=== PATIENT | male | born 1985 | race Caucasian/White ===

== ENCOUNTER → 2016-07-12 | Outpatient (CLI) | payer OTHER ==
[~2016-07-12] MED LIST: AMLO-114 PO; AMOX500C3 PO; BUME1TAB PO; CALC667C4 PO; CTP/1 PO; HPRIS5M SQ; HYDI IV.; HYDR-5688 PO; INSDGI SC; INSDGIPEN SC; LABE1TAB28 PO; NRV5 PO; NVLG SQ; NVLGI SC; OXYC-57 PO; PENI-82 PO; ROSU40TA18 PO; ROSU5TAB PO; SODI650T8 PO; SODI650T9 PO; ZTHM250 OR; [UNRECOGNIZED DRUG - OTHER]
[2016-07-12 17:40] LABS: BASO % 0.8 %; BASO ABS # 0.09 K/uL (0-0.2); COMPLETE YES; EOS % 1.8 %; HEMATOCRIT 29.8 % (42-52); IG% 0.5 %; LYMPH % 16.1 %; LYMPH ABS # 1.76 K/uL (1.2-3.4); MEAN CELL VOLUME 86.1 fL (80-100); MEAN CORPUSCULAR HEMOGLOBIN 29.8 pg (25-34); MEAN CORPUSCULAR HGB CONC 34.6 g/dl (32-36); MEAN PLATELET VOLUME 10.5 fL (7.4-10.4); MONO % 4.7 %; NEUT % 76.1 %; PLATELET COUNT 343 K/uL (130-400); RED BLOOD COUNT 3.46 M/uL (4.7-6.1); WHITE BLOOD COUNT 10.94 K/uL (4.8-10.8)
[2016-07-12 17:42] LABS: URINE APPEARANCE CLEAR (CLEAR); URINE BILIRUBIN NEG (NEG); URINE COLOR YELLOW; URINE EPITHELIAL CELL AUTO >30 /lpf (0-5); URINE NITRITE NEG (NEG); URINE SPECIFIC GRAVITY 1.017 (1.000-1.030); UROBILINOGEN NEG (NEG); ZZUR CULT IF INDIC CLEAN CATCH NO
[2016-07-12 17:54] LABS: MANUAL MICROSCOPIC REQUIRED? NO; REVIEW REQ? YES
[2016-07-12 17:56] LABS: BLOOD UREA NITROGEN 65 mg/dl (7-18); BUN/CREATININE RATIO 16.7 (10-20); CALCIUM 8.5 mg/dl (8.5-10.1); CARBON DIOXIDE 23 mmol/L (21-32); CHLORIDE 104 mmol/L (98-107); GLUCOSE 362 mg/dl (70-99); MAGNESIUM 1.8 mg/dl (1.8-2.4); POTASSIUM 5.3 mmol/L (3.5-5.1); SODIUM 137 mmol/L (136-145)
[2016-07-12 17:58] LABS: PHOSPHORUS 5.3 mg/dl (2.5-4.9)
[2016-07-12 18:02] LABS: URINE PROTIEN/CREAT RATIO 17.9 (0-0.2)
[2016-07-12 18:05] LABS: BETA-HYDROXYBUTYRATE 1.14 mg/dL (0.2-2.81); URINE PATH CASTS 5-10 GRANULAR CASTS /lpf (0)
== END | disposition home or self-care (01) ==
LOC: C.LAB1850 16:35
PROVIDERS: ATTEND Internal Medicine Nephrology
DX: N18.3 Chronic kidney disease, stage 3 (moderate) (principal)

== ENCOUNTER 2016-07-28 09:26 | Emergency (ER) | payer OTHER ==
[~2016-07-28] VITALS: Ht 182.9 cm; Wt 79.7 kg
[~2016-07-28 09:26] MED LIST changes: -AMLO-114 PO; -AMOX500C3 PO; -BUME1TAB PO; -CALC667C4 PO; -CTP/1 PO; -HPRIS5M SQ; -HYDI IV.; -INSDGIPEN SC; -LABE1TAB28 PO; -NVLG SQ; -OXYC-57 PO; -PENI-82 PO; -ROSU40TA18 PO; -SODI650T8 PO; -SODI650T9 PO; -ZTHM250 OR; -[UNRECOGNIZED DRUG - OTHER]
[2016-07-28 09:27] VITALS: BP 156/90; PULSE 85; TEMP 36.5; O2SAT 99; Ht 182.9 cm; Wt 79.7 kg
[2016-07-28] MEDS ORDERED: HYDR-5688 PO (10:23)
[2016-07-28] MEDS ORDERED: AMOX500C3 PO (10:23)
--- NOTE | 2016-07-28 10:24 | EMERGENCY ROOM VISIT NOTE ---
ED Visit Note First contact with patient: 09:36 Chief Complaint: Dental Pain History of Present Illness: This patient is a 31-year-old male who presents to the Emergency Department this morning for evaluation of their dental pain. Patient believes the pain is arising from LEFT inferior molar tooth which they report developed last evening. They describe the pain as constant and they now report radiation to the jaw and face. They have tried nothing for the pain to this point. They report increased pain with eating and drinking. Patient rates his current discomfort as a 7/10. The patient does not have a dentist appointment set up at this time. Patient currently denies any associated fevers , chills, visual disturbances, neck pain/stiffness, or trismus. They report no drainage from the tooth. Patient is a current smoker. Medications: Reviewed and discussed with the patient. Allergies: No known allergies. PMH: No pertinent past medical history. SHx: Patient is a 31-year-old male who lives locally. ROS: All pertinent positive and negative review of systems are appropriately documented in the History of Present Illness. Physical Exam: VITAL SIGNS Vital signs and nursing notes were reviewed. GENERAL 31-year-old male appearing his stated age who is in no acute distress. Communicates well with provider and answers questions appropriately. HEAD Normocephalic, Atraumatic. EYES PERRL with EOMI bilaterally. EARS No deformities of external structures noted on gross examination bilaterally. No pain elicited with palpation of the tragus bilaterally. External auditory canals without discharge or otorrhea. Tympanic membranes pearly negron without retraction or bulging. NOSE Midline and without cyanosis. No epistaxis or purulent drainage noted. Septum midline without deviation or septal hematoma noted. MOUTH/OROPHARYNX Without perioral cyanosis. Buccal mucosa pink and moist and without leukoplakia. Tongue midline with equal elevation of palate bilaterally. No tonsillar hypertrophy, erythema, or exudates noted. Poor dentition noted. The LEFT 1st molar tooth is carious to the base. Surrounding gums erythematous and edematous without discharge. Exquisite tenderness to palpation of affected tooth. No trismus. No fluctuance to palpation or active drainage appreciated. No sublingual edema. NECK Neck with FROM. Supple to palpation. No lymphadenopathy noted. No nuchal rigidity. ED Course: Patient was seen and evaluated by myself. It was discussed with the patient at great length that the Emergency Department is not an appropriate place for continued treatment of dental pain issues. Patient acknowledges understanding. Patient will be placed on a course of [place] and Amoxicillin. Patient was educated on worrisome symptoms for return visit to the Emergency Department. Patient was discharged to home afebrile and in good condition. Impression: Odontalgia Discharge Instructions: You have been treated in the Emergency Department for Dental Pain due to Cavities. You have been prescribed [place] to be used for pain control. This is a narcotic medication. You cannot drive or consume alcohol while on this medicine. This medicine should only be used for pain that cannot be controlled with over-the- counter pain medicines. You were prescribed Amoxicillin to be taken as prescribed. This is an antibiotic. All antibiotics have the potential to cause diarrhea. Stop this medication and contact a medical provider if you were to develop any significant adverse side effects including: wheezing, shortness of breath, passing out, vomiting, or a diffuse rash. Always take antibiotics as directed and COMPLETE the ENTIRE course regardless of the improvement of your symptoms. For pain control, you can use the following [id number] medicines (if >12 yo): - Regular strength (325mg/tab) Tylenol (acetaminophen) 2 tabs every 4-6 hours as needed. Do not exceed 12 tablets in a 24 hour period. Avoid taking more than 4 grams (4000 mg) of Tylenol per day. This includes any other sources of acetaminophen you may take on a regular basis. - Regular strength (200 mg/tab) Advil (ibuprofen) 1-2 tabs every 4-6 hours as needed. Do not exceed a dose of 3200 mg per day. Refrain from smoking cigarettes or using chewing tobacco until you have been evaluated by your dentist. Keeping beverages lukewarm and consuming soft foods can decrease your pain. Warm compresses over the affected area may offer some relief. You MUST seek evaluation of your dental pain by a dentist following your visit to the Emergency Department. The Emergency Department is not capable of treating dental issues long-term. You should call your dentist as soon as possible to make an appointment for evaluation of your dental pain. Return to the emergency department if you develop the following symptoms despite treatment course outlined above: fever, intractable pain, increased redness, swelling, or purulent discharge. Problem List Medical Problems: (1) Bilateral leg edema Status: Resolved (2) Chronic Kidney Disease, Stage 3 (Moderate) Status: Chronic (3) Dehydration Status: Resolved (4) Diabetes Status: Chronic (5) Elevated IOP Status: Resolved (6) Hyperglycemia Status: Resolved (7) Hyperkalemia Status: Resolved (8) Hyperlipidemia, Unspecified Status: Chronic (9) Hypertension Status: Chronic (10) Hypertensive emergency Status: Resolved (11) Hypertensive Retinopathy, Left Eye Status: Chronic (12) Proteinuria Status: Resolved (13) Renal insufficiency Status: Resolved (14) Renal insufficiency Status: Resolved (15) Visual disturbance Status: Resolved Current/Historical Medications Scheduled Amlodipine Besylate (Amlodipine Besylate), 10 MG PO QAM Amoxicillin (Amoxil), 500 MG PO TID Insulin Aspart (Novolog), UNITS SC WM Insulin Glargine (Lantus), 25 UNITS SC QPM Labetalol (Normodyne), 200 MG PO TID Rosuvastatin Calcium (Crestor), 5 MG PO DAILY Scheduled PRN Hydrocodone/Acetaminophen 5MG/325MG ([place] 5MG/325MG), 1-2 TABLETS PO Q4H PRN for Pain Hydrocodone/Acetaminophen 5MG/325MG ([place] 5MG/325MG), 1-2 TABLET PO Q4H PRN for Pain Allergies Coded Allergies: No Known Allergies (Unverified , NKA, 05/14/16) Vital Signs Date Time Temp Pulse Resp B/P Pulse Ox O2 Delivery O2 Flow Rate FiO2 07/28/16 09:27 36.5 85 18 156/90 99 Room Air Departure Information Impression Primary Impression: Odontalgia Additional Impression: Dental caries Dispostion Home / Self-Care Condition GOOD Prescriptions Hydrocodone/Acetaminophen 5MG/325MG ([place] 5MG/325MG) Tab 1-2 TABLET PO Q4H Y for Pain, #16 TAB For Initial Treatment Prov: Ephraim Singleton PA-C 07/28/16 Amoxicillin (AMOXIL) 500 Mg Cap 500 MG PO TID for 10 Days, #30 CAP Prov: Ephraim Singleton PA-C 07/28/16 Referrals Carmelita Alejandro M.D. (PCP) Patient Instructions ED [facility] Additional Instructions You have been treated in the Emergency Department for Dental Pain due to Cavities. You have been prescribed [place] to be used for pain control. This is a narcotic medication. You cannot drive or consume alcohol while on this medicine. This medicine should only be used for pain that cannot be controlled with over-the- counter pain medicines. You were prescribed Amoxicillin to be taken as prescribed. This is an antibiotic. All antibiotics have the potential to cause diarrhea. Stop this medication and contact a medical provider if you were to develop any significant adverse side effects including: wheezing, shortness of breath, passing out, vomiting, or a diffuse rash. Always take antibiotics as directed and COMPLETE the ENTIRE course regardless of the improvement of your symptoms. For pain control, you can use the following [id number] medicines (if >12 yo): - Regular strength (325mg/tab) Tylenol (acetaminophen) 2 tabs every 4-6 hours as needed. Do not exceed 12 tablets in a 24 hour period. Avoid taking more than 4 grams (4000 mg) of Tylenol per day. This includes any other sources of acetaminophen you may take on a regular basis. - Regular strength (200 mg/tab) Advil (ibuprofen) 1-2 tabs every 4-6 hours as needed. Do not exceed a dose of 3200 mg per day. Refrain from smoking cigarettes or using chewing tobacco until you have been evaluated by your dentist. Keeping beverages lukewarm and consuming soft foods can decrease your pain. Warm compresses over the affected area may offer some relief. You MUST seek evaluation of your dental pain by a dentist following your visit to the Emergency Department. The Emergency Department is not capable of treating dental issues long-term. You should call your dentist as soon as possible to make an appointment for evaluation of your dental pain. Return to the emergency department if you develop the following symptoms despite treatment course outlined above: fever, intractable pain, increased redness, swelling, or purulent discharge. Problem Qualifiers
[2016-08-22] MEDS ORDERED: SODI650T9 PO (14:06)
[2016-08-22] MEDS ORDERED: OXYC-57 PO (14:06)
[2016-08-22] MEDS ORDERED: HPRIS5M SQ (14:06)
[2016-08-22] MEDS ORDERED: INSDGIPEN SC (14:06)
[2016-08-22] MEDS ORDERED: HYDI IV. (14:06)
[2016-08-22] MEDS ORDERED: [UNRECOGNIZED DRUG - OTHER] (14:06)
[2016-08-22] MEDS ORDERED: ZTHM250 OR (14:06)
[2016-12-02] MEDS ORDERED: ROSU40TA18 PO (08:39)
[2016-12-02] MEDS ORDERED: CTP/1 PO (08:39)
[2016-12-02] MEDS ORDERED: INSDGIPEN SC (09:27)
[2016-12-02] MEDS ORDERED: LABE1TAB28 PO (09:49)
== END 2016-07-28 10:33 | disposition home or self-care (01) ==
LOC: C.EDB 09:27 → C.EDA 10:33
DX: K08.89 Other specified disorders of teeth and supporting structures (principal); K02.9 Dental caries, unspecified; N18.3 Chronic kidney disease, stage 3 (moderate); E11.9 Type 2 diabetes mellitus without complications; E78.5 Hyperlipidemia, unspecified; I10 Essential (primary) hypertension; Z79.4 Long term (current) use of insulin

== ENCOUNTER → 2016-07-28 | Outpatient (CLI) | payer OTHER ==
[2016-07-28 11:45] LABS: BASO % 0.6 %; BASO ABS # 0.08 K/uL (0-0.2); COMPLETE YES; EOS % 2.2 %; HEMATOCRIT 29.4 % (42-52); IG% 0.2 %; LYMPH % 14.3 %; LYMPH ABS # 1.84 K/uL (1.2-3.4); MEAN CELL VOLUME 86.7 fL (80-100); MEAN CORPUSCULAR HEMOGLOBIN 30.1 pg (25-34); MEAN CORPUSCULAR HGB CONC 34.7 g/dl (32-36); MEAN PLATELET VOLUME 9.5 fL (7.4-10.4); MONO % 5.7 %; PLATELET COUNT 408 K/uL (130-400); RED BLOOD COUNT 3.39 M/uL (4.7-6.1); WHITE BLOOD COUNT 12.91 K/uL (4.8-10.8)
[2016-07-28 12:00] LABS: URINE APPEARANCE CLOUDY (CLEAR); URINE BILIRUBIN NEG (NEG); URINE COLOR YELLOW; URINE EPITHELIAL CELL AUTO >30 /lpf (0-5); URINE NITRITE NEG (NEG); URINE PH 5.5 (4.5-7.5); URINE SPECIFIC GRAVITY 1.021 (1.000-1.030); UROBILINOGEN NEG (NEG); ZZUR CULT IF INDIC CLEAN CATCH YES
[2016-07-28 12:01] LABS: INR 0.9 (0.9-1.1); PARTIAL THROMBOPLASTIN RATIO 1.1; PROTHROMBIN TIME (PATIENT) 10.1 SECONDS (9.0-12.0)
[2016-07-28 12:03] LABS: MANUAL MICROSCOPIC REQUIRED? NO; REVIEW REQ? YES
[2016-07-28 12:15] LABS: BLOOD UREA NITROGEN 57 mg/dl (7-18); BUN/CREATININE RATIO 14.2 (10-20); CALCIUM 8.3 mg/dl (8.5-10.1); CARBON DIOXIDE 22 mmol/L (21-32); CHLORIDE 106 mmol/L (98-107); GLUCOSE 149 mg/dl (70-99); MAGNESIUM 1.8 mg/dl (1.8-2.4); PHOSPHORUS 6.6 mg/dl (2.5-4.9); POTASSIUM 5.3 mmol/L (3.5-5.1); SODIUM 138 mmol/L (136-145)
[2016-07-28 12:20] LABS: HEPATITIS B AB NEG
[2016-07-28 12:35] LABS: URINE PROTIEN/CREAT RATIO 21.8 (0-0.2); URINE TOTAL PROTEIN 1808.5 mg/dl (0-11.9)
[2016-08-01 21:36] LABS: MYELOPEROXIDASE AB <1.0 AI (<1.0)
== END | disposition home or self-care (01) ==
LOC: C.LAB 10:50
PROVIDERS: ATTEND Internal Medicine Nephrology
DX: N18.3 Chronic kidney disease, stage 3 (moderate) (principal)

== ENCOUNTER → 2016-08-20 | Outpatient (CLI) | payer OTHER ==
[~2016-08-20] MED LIST changes: +AMLO-114 PO; +BUME1TAB PO; +CALC667C4 PO; +CTP/1 PO; +HPRIS5M SQ; +HYDI IV.; +INSDGIPEN SC; +LABE1TAB28 PO; +NVLG SQ; +OXYC-57 PO; +PENI-82 PO; +ROSU40TA18 PO; +SODI650T8 PO; +SODI650T9 PO; +ZTHM250 OR; +[UNRECOGNIZED DRUG - OTHER]
[2016-08-20 17:18] LABS: BASO % 1.2 %; BASO ABS # 0.12 K/uL (0-0.2); COMPLETE YES; EOS % 3.1 %; HEMATOCRIT 30.4 % (42-52); IG% 0.1 %; LYMPH % 20.5 %; LYMPH ABS # 2.02 K/uL (1.2-3.4); MEAN CELL VOLUME 87.6 fL (80-100); MEAN CORPUSCULAR HEMOGLOBIN 28.8 pg (25-34); MEAN CORPUSCULAR HGB CONC 32.9 g/dl (32-36); MEAN PLATELET VOLUME 9.4 fL (7.4-10.4); MONO % 6.3 %; NEUT % 68.8 %; PLATELET COUNT 464 K/uL (130-400); RED BLOOD COUNT 3.47 M/uL (4.7-6.1); WHITE BLOOD COUNT 9.86 K/uL (4.8-10.8)
[2016-08-20 17:28] LABS: PARTIAL THROMBOPLASTIN RATIO 1.1; PROTHROMBIN TIME (PATIENT) 10.7 SECONDS (9.0-12.0)
[2016-08-20 17:47] LABS: BLOOD UREA NITROGEN 50 mg/dl (7-18); BUN/CREATININE RATIO 12.3 (10-20); CALCIUM 8.2 mg/dl (8.5-10.1); CARBON DIOXIDE 19 mmol/L (21-32); CHLORIDE 114 mmol/L (98-107); GLUCOSE 94 mg/dl (70-99); MAGNESIUM 1.8 mg/dl (1.8-2.4); PHOSPHORUS 5.7 mg/dl (2.5-4.9); POTASSIUM 4.8 mmol/L (3.5-5.1); SODIUM 146 mmol/L (136-145)
== END | disposition home or self-care (01) ==
LOC: C.LAB1850 16:18
PROVIDERS: ATTEND Internal Medicine Nephrology
DX: R31.29 Other microscopic hematuria (principal)

== ENCOUNTER 2016-08-21 08:05 | Inpatient (IN) | payer OTHER ==
[~2016-08-21] VITALS: Ht 182.9 cm; Wt 85.6 kg
[~2016-08-21 08:05] MED LIST changes: -AMLO-114 PO; -BUME1TAB PO; -CALC667C4 PO; -CTP/1 PO; -HPRIS5M SQ; -HYDI IV.; -INSDGIPEN SC; -LABE1TAB28 PO; -NVLG SQ; -OXYC-57 PO; -PENI-82 PO; -ROSU40TA18 PO; -SODI650T8 PO; -SODI650T9 PO; -ZTHM250 OR; -[UNRECOGNIZED DRUG - OTHER]
--- NOTE | 2016-08-21 08:25 | EMERGENCY ROOM VISIT NOTE ---
History Report prepared by Paulo: Alyssa Soliz Under the Supervision of: Dr. Kt Goff M.D. First contact with patient: 08:13 Chief Complaint: FLANK PAIN Stated Complaint: PAIN IN SIDE History of Present Illness The patient is a 31 year old male who presents to the Emergency Room with complaints of persistent, worsening, right flank pain that began one week ago. He currently rates his discomfort as a 4/10 in severity. The patient states that he has a history of diabetes and kidney failure. 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 The patient states that his pain is worsened with deep breathing and coughing. He states that he has always noticed pain to the right side of his back, but notes that it has started to radiate. The patient notes increased swelling to his legs. He denies any recent heavy lifting or straining or urinary burning. The patient denies being on any blood thinners. He denies any allergies. The patient denies any history of kidney stones or pain similar to this in the past. Source of History: patient Onset: one week ago Position: other (right flank) Symptom Intensity: 4/10 Timing: worsening, other (persistent) Associated Symptoms: + back pain, No urinary symptoms Review of Systems All systems have been listed, reviewed, and are negative other than those previously mentioned. Please see Additional Medical History Sheet. Past Medical & Surgical Medical Problems: (1) Acute on chronic renal failure (2) Bilateral leg edema (3) Chronic Kidney Disease, Stage 3 (Moderate) (4) Dehydration (5) Diabetes (6) Elevated IOP (7) Hyperglycemia (8) Hyperkalemia (9) Hyperlipidemia, Unspecified (10) Hypertension (11) Hypertensive emergency (12) Hypertensive Retinopathy, Left Eye (13) Proteinuria (14) Renal insufficiency (15) Renal insufficiency (16) Visual disturbance Family History Diabetes mellitus FH: kidney disease Heart disease Hypertension Kidney stones Social History Smoking Status: Current Every Day Smoker Alcohol Use: none Marital Status: single Housing Status: lives with family Occupation Status: unemployed Current/Historical Medications Scheduled Amlodipine (Norvasc), 10 MG PO QAM Clonidine Hcl (Catapres), 0.1 MG PO QPM Insulin Aspart (Novolog), UNITS SQ WM Insulin Glargine (Lantus), 25 UNITS SC QPM Labetalol (Normodyne), 200 MG PO TID Rosuvastatin Calcium (Rosuvastatin Calcium), 40 MG PO QPM Allergies Coded Allergies: No Known Allergies (Unverified , NKA, 08/21/16) Physical Exam Vital Signs Date Time Temp Pulse Resp B/P Pulse Ox O2 Delivery O2 Flow Rate FiO2 08/21/16 13:02 77 16 159/103 99 Room Air 08/21/16 11:13 87 16 181/118 95 Room Air 08/21/16 10:29 191/122 08/21/16 10:03 194/128 08/21/16 10:01 90 18 213/130 96 Room Air 08/21/16 08:08 36.6 93 18 189/110 99 Room Air Physical Exam GENERAL: Patient awake, alert, oriented x 3. Patient follows commands. Patient does not appear toxic. Patient is adequately hydrated and well- nourished. SKIN: No erythema, pallor, cyanosis or rash HEENT: Normal head, pupils equal, reactive to light and accommodation. Oral cavity and posterior pharynx appear normal. Neck: Without adenopathy, no neck vein distention. LUNGS: Increased pain with deep inspiration. Clear to auscultation. No wheezes , no rales, no rhonchi. HEART: No murmurs. No gallops. No rubs ABDOMEN: No masses, no rebound, no hepatomegaly or splenomegaly. BACK: Vague tenderness to the right CVA area. EXTREMITIES: 3+ pitting and pretibial edema. No signs of trauma. No calf or thigh tenderness. NEUROLOGIC: Cranial nerves II-XII within normal limits. No gross motor sensory function deficits. Medical Decision & Procedures ER Provider Diagnostic Interpretation: X-ray results as stated below per my interpretation and radiologist interpretation. Other radiology results as stated below per my review and radiologist interpretation: CHEST 2 VIEWS ROUTINE CLINICAL HISTORY: Right upper quadrant pain, increased with inspiration. COMPARISON STUDY: Chest radiograph August 19, 2008. FINDINGS: Lung volumes are normal. Small bilateral pleural effusions, left larger than right, are noted. There are associated bibasilar opacities. Cardiac size is at the upper limits of normal. There is no evidence of pulmonary edema. IMPRESSION: Small bilateral pleural effusions, left larger than right, with associated bibasilar opacities which likely reflect atelectasis although consolidation could appear similar. Radiographic follow up to ensure resolution is recommended. Electronically signed by: Ronak Alejandro M.D. 08/21/2016 9:15 AM Dictated Date/Time: 08/21/2016 9:11 AM ABDOMEN COMPLETE (US) CLINICAL HISTORY: RUQ PAIN INCREASES WITH INSPIRATION COMPARISON STUDY: Renal ultrasound July 19, 2016. FINDINGS: Liver is sonographically normal. Incidental note is made of bilateral pleural effusions. There is a 3 mm gallbladder polyp. Less likely, this could reflect a stone. There is no gallbladder wall thickening or pericholecystic fluid. No biliary ductal dilatation is present. The size of the spleen is normal. There is no hydronephrosis. The right kidney measures 12.6 cm in maximal dimension and the left measures 12.5 cm. Renal echogenicity is increased. The caliber of the abdominal aorta is normal and visualized portions of the IVC are patent. IMPRESSION: 1. No hydronephrosis. 2. Bilateral pleural effusions. 3. 3 mm nonmobile structure within the gallbladder which likely reflects a tiny polyp. A gallstone is considered less likely. No evidence of acute cholecystitis. 4. Increased renal echogenicity suggestive of chronic renal disease. Electronically signed by: Ronak Alejandro M.D. 08/21/2016 9:55 AM Dictated Date/Time: 08/21/2016 9:[address] OF THE ABDOMEN AND PELVIS WITHOUT CONTRAST, STONE PROTOCOL CLINICAL HISTORY: Right flank pain. COMPARISON STUDY: Abdominal ultrasound performed earlier today. TECHNIQUE: Helical axial images of the abdomen and pelvis were obtained without IV or oral contrast according to renal stone protocol. FINDINGS: Visualized portions of lower chest demonstrate moderate bilateral pleural effusions. Extensive bilateral lower lobe opacities favor compressive atelectasis. There is trace pericardial effusion. No pneumatosis, free air or portal venous gas is present. No renal, ureteral or bladder calculi are present. There is no hydronephrosis or hydroureter. Mild bladder wall thickening and perinephric infiltration is present. Moderate soft tissue edema is noted within visualized portions of the body. Unenhanced images of the liver, spleen, adrenal glands are unremarkable. There is minimal fluid adjacent to the pancreas. There is no biliary or pancreatic ductal dilatation. Small amount of fluid is noted within the pelvis. There is no abscess or lymphadenopathy. The appendix is suboptimally assessed on this exam but appears normal. No suspicious osseous lesions are present. Moderate atherosclerotic calcification within the pelvis is greater than expected for age. IMPRESSION: 1. No urinary calculi or hydronephrosis. 2. Evidence for volume overload, including moderate bilateral pleural effusions, anasarca and small amount of ascites. Bilateral lower lobe opacities likely reflect compressive atelectasis. Pneumonia is considered less likely. 3. No bowel obstruction. No evidence of acute appendicitis. 4. Minimal peripancreatic fluid which is likely due to volume overload rather than acute pancreatitis although this could be correlated with biochemical assays. Electronically signed by: Ronak Alejandro M.D. 08/21/2016 10:59 AM Dictated Date/Time: 08/21/2016 10:45 AM Laboratory Results 08/21/16 08:20 Red Blood Count 3.46, Mean Corpuscular Volume 88.2, Mean Corpuscular Hemoglobin 29.2, Mean Corpuscular Hemoglobin Concent 33.1, Mean Platelet Volume 9.5, Neutrophils (%) (Auto) 70.9, Lymphocytes (%) (Auto) 20.1, Monocytes (%) (Auto) 4.3, Eosinophils (%) (Auto) 3.6, Basophils (%) (Auto) 0.8, Neutrophils # (Auto) 8.66, Lymphocytes # (Auto) 2.45, Monocytes # (Auto) 0.52, Eosinophils # (Auto) 0.44, Basophils # (Auto) 0.10 08/21/16 08:20 Test 08/21/16 08:20 08/21/16 09:22 White Blood Count 12.21 K/uL (4.8-10.8) Red Blood Count 3.46 M/uL (4.7-6.1) Hemoglobin 10.1 g/dL (14.0-18.0) Hematocrit 30.5 % (42-52) Mean Corpuscular Volume 88.2 fL (80-100) Mean Corpuscular Hemoglobin 29.2 pg (25-34) Mean Corpuscular Hemoglobin Concent 33.1 g/dl (32-36) Platelet Count 440 K/uL (130-400) Mean Platelet Volume 9.5 fL (7.4-10.4) Neutrophils (%) (Auto) 70.9 % Lymphocytes (%) (Auto) 20.1 % Monocytes (%) (Auto) 4.3 % Eosinophils (%) (Auto) 3.6 % Basophils (%) (Auto) 0.8 % Neutrophils # (Auto) 8.66 K/uL (1.4-6.5) Lymphocytes # (Auto) 2.45 K/uL (1.2-3.4) Monocytes # (Auto) 0.52 K/uL (0.11-0.59) Eosinophils # (Auto) 0.44 K/uL (0-0.5) Basophils # (Auto) 0.10 K/uL (0-0.2) RDW Standard Deviation 45.1 fL (36.4-46.3) RDW Coefficient of Variation 14.0 % (11.5-14.5) Immature Granulocyte % (Auto) 0.3 % Immature Granulocyte # (Auto) 0.04 K/uL (0.00-0.02) Erythrocyte Sedimentation Rate 57 mm/hr (0-14) Anion Gap 12.0 mmol/L (3-11) Est Creatinine Clear Calc Drug Dose 30.6 ml/min Estimated GFR () 22.9 Estimated GFR (Non- 19.7 BUN/Creatinine Ratio 11.8 (10-20) Calcium Level 8.0 mg/dl (8.5-10.1) Total Bilirubin 0.1 mg/dl (0.2-1) Aspartate Amino Transf (AST/SGOT) 18 U/L (15-37) Alanine Aminotransferase (ALT/SGPT) 30 U/L (12-78) Alkaline Phosphatase 83 U/L (45-117) C-Reactive Protein < 0.29 mg/dl (0-0.29) Total Protein 6.2 gm/dl (6.4-8.2) Albumin 1.7 gm/dl (3.4-5.0) Globulin 4.5 gm/dl (2.5-4.0) Albumin/Globulin Ratio 0.4 (0.9-2) Lipase 171 U/L (73-393) Procalcitonin 0.08 ng/mL (0-0.5) Urine Color YELLOW Urine Appearance CLOUDY (CLEAR) Urine pH 6.0 (4.5-7.5) Urine Specific [place] 1.018 (1.000-1.030) Urine Protein 4+ (NEG) Urine Glucose (UA) 3+ (NEG) Urine Ketones NEG (NEG) Urine Occult Blood 2+ (NEG) Urine Nitrite NEG (NEG) Urine Bilirubin NEG (NEG) Urine Urobilinogen NEG (NEG) Urine Leukocyte Esterase NEG (NEG) Urine WBC (Auto) 1-5 /hpf (0-5) Urine RBC (Auto) 10-30 /hpf (0-4) Urine Hyaline Casts (Auto) 1-5 /lpf (0-5) Urine Epithelial Cells (Auto) >30 /lpf (0-5) Urine Bacteria (Auto) NEG (NEG) Urine Renal Epithelial Cells /lpf (0-5) Urine Pathogenic Casts 1-5 GRANULAR CASTS /lpf (0) Laboratory results as stated above per my review. Medications Administered Medications (Trade) Dose Ordered Sig/Richie Route Start Time Stop Time Status Last Admin Dose Admin Morphine Sulfate (MoRPHine SULFATE INJ) 6 mg Q1H PRN IV 08/21/16 08:30 08/21/16 14:29 DC 08/21/16 11:22 6 MG Ondansetron HCl (Zofran Inj) 4 mg Q1HWA PRN IV 08/21/16 08:30 08/21/16 14:28 DC 08/21/16 09:58 4 MG Labetalol HCl (Normodyne Tab) 200 mg STK-MED ONCE .ROUTE 08/21/16 10:08 08/21/16 10:10 DC 08/21/16 10:12 200 MG Furosemide (Lasix Inj) 40 mg NOW STAT IV 08/21/16 11:07 08/21/16 11:08 DC 08/21/16 11:10 40 MG ECG Indication: other (back pain) Rate (beats per minute): 85 Rhythm: normal sinus Findings: nonspecific-ST abn, T-wave inversion (V4, V5, V6) ED Course 0814: Past medical records reviewed. The patient was evaluated in room A10. A complete history and physical examination was performed. 0830: Ordered Zofran Inj 4 mg IV, Morphine Sulfate 6 mg IV. 1015: Ordered Labetalol HCl 200 mg PO. 1105: I reevaluated the patient and he is resting comfortably. I discussed the exam findigns with him and I discussed the treatment plan. He verbalized complete understanding and agreement. The patient will be evaluated for further treatment. 1107: Ordered Lasix Inj 40 mg IV. 1113: I discussed the patients case with MATT Daley. He is going to evaluate the patient for further treatment. Medical Decision Nurses notes reviewed. Medical history sheet reviewed. Differential diagnosis includes but is not limited to: kidney stone, nephrolithiasis, ureterolithiasis , hydronephrosis, pyelonephritis, infection, cholelithiasis, cholecystitis, hepatitis, appendicitis, pneumothorax, pneumonia. The patient is here with right flank pain. Numerous imaging studies, labs, urinalysis were evaluated. Please see above. The patient does have bilateral pleural effusions which I believe is the cause of his pain. He also has fluid overload. He was given IV Lasix. The patient's renal function appears to be about the same as it was in the past. Blood sugar is elevated. The patient will require further evaluation here in the hospital. I discussed care with the patient and the hospitalist. Consults Time Called: 1109 Consulting Physician: MATT Daley Returned Call: [phone] I discussed the patients case with MATT Daley. He is going to evaluate the patient for further treatment. Impression Primary Impression: Bilateral pleural effusion Additional Impressions: Anasarca Chronic kidney disease Anemia Scribe Attestation The scribe's documentation has been prepared under my direction and personally reviewed by me in its entirety. I confirm that the note above accurately reflects all work, treatment, procedures, and medical decision making performed by me. Departure Information Dispostion Being Evaluated By Hospitalist Referrals No Doctor, Assigned (PCP) Problem Qualifiers
[2016-08-21 08:33] LABS: BASO % 0.8 %; COMPLETE YES; EOS % 3.6 %; HEMATOCRIT 30.5 % (42-52); IG% 0.3 %; LYMPH % 20.1 %; LYMPH ABS # 2.45 K/uL (1.2-3.4); MEAN CELL VOLUME 88.2 fL (80-100); MEAN CORPUSCULAR HEMOGLOBIN 29.2 pg (25-34); MEAN CORPUSCULAR HGB CONC 33.1 g/dl (32-36); MEAN PLATELET VOLUME 9.5 fL (7.4-10.4); MONO % 4.3 %; NEUT % 70.9 %; PLATELET COUNT 440 K/uL (130-400); RED BLOOD COUNT 3.46 M/uL (4.7-6.1); WHITE BLOOD COUNT 12.21 K/uL (4.8-10.8)
[2016-08-21] MEDS ORDERED: INSDGI SC (08:39)
[2016-08-21] MEDS ORDERED: NVLG SQ (08:39)
[2016-08-21] MEDS ORDERED: AMLO-114 PO (08:40)
[2016-08-21] MEDS: MoRPHine SULFATE 10 MG/ML CARP/VIAL IV PRN ×3 (08:42→11:22)
[2016-08-21] MEDS: ONDANSETRON INJ 2 MG/ML 2 ML VIAL IV PRN ×2 (08:42→09:58)
[2016-08-21 08:47] LABS: BUN/CREATININE RATIO 11.8 (10-20); CREATININE 3.8 mg/dl (0.60-1.40); POTASSIUM 5.1 mmol/L (3.5-5.1)
[2016-08-21 08:50] LABS: ALB/GLOB RATIO 0.4 (0.9-2)
--- NOTE | 2016-08-21 09:16 | DIAGNOSTIC IMAGING REPORT ---
CHEST 2 VIEWS ROUTINE CLINICAL HISTORY: Right upper quadrant pain, increased with inspiration. COMPARISON STUDY: Chest radiograph August 19, 2008. FINDINGS: Lung volumes are normal. Small bilateral pleural effusions, left larger than right, are noted. There are associated bibasilar opacities. Cardiac size is at the upper limits of normal. There is no evidence of pulmonary edema. IMPRESSION: Small bilateral pleural effusions, left larger than right, with associated bibasilar opacities which likely reflect atelectasis although consolidation could appear similar. Radiographic follow up to ensure resolution is recommended. Electronically signed by: Ronak Alejandro M.D. 08/21/2016 9:15 AM Dictated Date/Time: 08/21/2016 9:11 AM
[2016-08-21 09:33] LABS: URINE APPEARANCE CLOUDY (CLEAR); URINE BILIRUBIN NEG (NEG); URINE COLOR YELLOW; URINE EPITHELIAL CELL AUTO >30 /lpf (0-5); URINE NITRITE NEG (NEG); URINE SPECIFIC GRAVITY 1.018 (1.000-1.030); UROBILINOGEN NEG (NEG); ZZUR CULT IF INDIC CLEAN CATCH NO
[2016-08-21 09:37] LABS: MANUAL MICROSCOPIC REQUIRED? NO; REVIEW REQ? YES
--- NOTE | 2016-08-21 09:57 | DIAGNOSTIC IMAGING REPORT ---
ABDOMEN COMPLETE (US) CLINICAL HISTORY: RUQ PAIN INCREASES WITH INSPIRATION COMPARISON STUDY: Renal ultrasound July 19, 2016. FINDINGS: Liver is sonographically normal. Incidental note is made of bilateral pleural effusions. There is a 3 mm gallbladder polyp. Less likely, this could reflect a stone. There is no gallbladder wall thickening or pericholecystic fluid. No biliary ductal dilatation is present. The size of the spleen is normal. There is no hydronephrosis. The right kidney measures 12.6 cm in maximal dimension and the left measures 12.5 cm. Renal echogenicity is increased. The caliber of the abdominal aorta is normal and visualized portions of the IVC are patent. IMPRESSION: 1. No hydronephrosis. 2. Bilateral pleural effusions. 3. 3 mm nonmobile structure within the gallbladder which likely reflects a tiny polyp. A gallstone is considered less likely. No evidence of acute cholecystitis. 4. Increased renal echogenicity suggestive of chronic renal disease. Electronically signed by: Ronak Alejandro M.D. 08/21/2016 9:55 AM Dictated Date/Time: 08/21/2016 9:53 AM
[2016-08-21 10:02] LABS: URINE PATH CASTS 1-5 GRANULAR CASTS /lpf (0)
[2016-08-21] MEDS ORDERED: LABETALOL HCL 100 MG TAB ONE (10:08)
[2016-08-21] MEDS ORDERED: LABETALOL HCL 200 MG TAB PO ONE (10:15)
--- NOTE | 2016-08-21 11:00 | DIAGNOSTIC IMAGING REPORT ---
CT OF THE ABDOMEN AND PELVIS WITHOUT CONTRAST, STONE PROTOCOL CLINICAL HISTORY: Right flank pain. COMPARISON STUDY: Abdominal ultrasound performed earlier today. TECHNIQUE: Helical axial images of the abdomen and pelvis were obtained without IV or oral contrast according to renal stone protocol. FINDINGS: Visualized portions of lower chest demonstrate moderate bilateral pleural effusions. Extensive bilateral lower lobe opacities favor compressive atelectasis. There is trace pericardial effusion. No pneumatosis, free air or portal venous gas is present. No renal, ureteral or bladder calculi are present. There is no hydronephrosis or hydroureter. Mild bladder wall thickening and perinephric infiltration is present. Moderate soft tissue edema is noted within visualized portions of the body. Unenhanced images of the liver, spleen, adrenal glands are unremarkable. There is minimal fluid adjacent to the pancreas. There is no biliary or pancreatic ductal dilatation. Small amount of fluid is noted within the pelvis. There is no abscess or lymphadenopathy. The appendix is suboptimally assessed on this exam but appears normal. No suspicious osseous lesions are present. Moderate atherosclerotic calcification within the pelvis is greater than expected for age. IMPRESSION: 1. No urinary calculi or hydronephrosis. 2. Evidence for volume overload, including moderate bilateral pleural effusions, anasarca and small amount of ascites. Bilateral lower lobe opacities likely reflect compressive atelectasis. Pneumonia is considered less likely. 3. No bowel obstruction. No evidence of acute appendicitis. 4. Minimal peripancreatic fluid which is likely due to volume overload rather than acute pancreatitis although this could be correlated with biochemical assays. Electronically signed by: Ronak Alejandro M.D. 08/21/2016 10:59 AM Dictated Date/Time: 08/21/2016 10:45 AM
[2016-08-21] MEDS ORDERED: FUROSEMIDE 40 MG/4 ML VIAL IV STA (11:07)
[2016-08-21] MEDS ORDERED: SODIUM CHLORIDE 0.9% 1000ML 1,000 ML IV SCH (13:17)
[2016-08-21] MEDS ORDERED: DC ALL PREVIOUSLY ORDERED DIABETES MEDS ONE (13:30)
[2016-08-21] MEDS ORDERED: DEXTROSE 50% 50 ML SYR IV PRN (13:30)
[2016-08-21] MEDS ORDERED: GLUCOSE 10 TABS/TUBE PO PRN (13:30)
[2016-08-21] MEDS ORDERED: GLUCAGON FOR INJ 1 MG VIAL SQ PRN (13:30)
[2016-08-21] MEDS ORDERED: NITROGLYCERIN 0.4 MG SL PER TAB CHARGE SL PRN (13:30)
[2016-08-21] MEDS ORDERED: MAGNESIUM HYDROXIDE SUSP 30 ML UDC PO PRN (13:30)
[2016-08-21] MEDS ORDERED: ZOLPIDEM TARTRATE 5 MG TAB PO PRN (13:30)
[2016-08-21] MEDS ORDERED: POLYETHYLENE (MIRALAX) 17 GM PACK PO PRN (13:30)
[2016-08-21] MEDS ORDERED: ALUMINUM/MAGNESIUM/SIMETH (MAALOX MAX) 30 ML UDC PO PRN (13:30)
[2016-08-21] MEDS ORDERED: HydrALAZINE HCL 20 MG/ML VIAL IV. PRN (13:30)
[2016-08-21] MEDS ORDERED: ACETAMINOPHEN 325 MG TAB PO PRN (13:30)
[2016-08-21] MEDS ORDERED: GLUCOSE 40% GEL 15 GM TUBE PO PRN (13:30)
--- NOTE | 2016-08-21 13:52 | History and Physical ---
History & Physical Date & Time of Service: Aug 21, 2016 at 13:36 Chief Complaint: Pain In Side Primary Care Physician: Carmelita Alejandro M.D. History of Present Illness Source: patient The patient is a 31 year old male with PMHx of HTN, CKD,DMII and tobacco abuse, presented wit slowly progressive RUQ abdominal pain. 4 weeks ago he had an URTI lasted about 3 days. one week after that he developed RUQ pain 3/10. slowly progressed over 3 weeks to 6/10. pain is worse with taking deep breath or cough, better with rest. associated with mild diarrhea, no othe associated symptoms, denies any fever, chills, chest pain or recent travel. admits to smoking 7-8 cigarette per day. denies alcohol abuse. Past Medical/Surgical History Medical Problems: (1) Bilateral leg edema Status: Resolved (2) Chronic Kidney Disease, Stage 3 (Moderate) Status: Chronic (3) Dehydration Status: Resolved (4) Diabetes Status: Chronic (5) Elevated IOP Status: Resolved (6) Hyperglycemia Status: Resolved (7) Hyperkalemia Status: Resolved (8) Hyperlipidemia, Unspecified Status: Chronic (9) Hypertension Status: Chronic (10) Hypertensive emergency Status: Resolved (11) Hypertensive Retinopathy, Left Eye Status: Chronic (12) Proteinuria Status: Resolved (13) Renal insufficiency Status: Resolved (14) Renal insufficiency Status: Resolved (15) Visual disturbance Status: Resolved Family History Diabetes mellitus FH: kidney disease Heart disease Hypertension Kidney stones Social History Smoking Status: Current Every Day Smoker Marital Status: single Occupational Status: unemployed Multi-Drug Resistant Organisms History of MDRO: No Allergies Coded Allergies: No Known Allergies (Unverified , NKA, 08/21/16) Home Medications Scheduled Amlodipine (Norvasc), 10 MG PO QAM Clonidine Hcl (Catapres), 0.1 MG PO QPM Insulin Aspart (Novolog), UNITS SQ WM Insulin Glargine (Lantus), 25 UNITS SC QPM Labetalol (Normodyne), 200 MG PO TID Rosuvastatin Calcium (Rosuvastatin Calcium), 40 MG PO QPM Review of Systems Constitutional: No chills, No fatigue, No fever, No problem reported, No sweats , No weakness, No weight loss Eyes: No diplopia, No discharge, No eye pain, No problem reported, No redness, No worsening of vision ENT: No dental problems, No hearing loss, No nasal symptoms, No problem reported, No sore throat, No tinnitus, No trouble swallowing, No unusual epistaxis Respiratory: No cough, No dyspnea at rest, No dyspnea on exertion, No hemoptysis, No problem reported, No shortness of breath, No sputum, No wheezing Cardiovascular: No PND, No chest pain, No claudication, No edema, No orthopnea , No palpitations, No problem reported Abdomen: + diarrhea, + pain Musculoskeletal: No calf pain, No joint pain, No muscle pain, No problem reported, No swelling Genitourinary - Male: No dysuria, No hematuria, No impotence, No lesions, No penile discharge, No problem reported, No urinary frequency, No urinary hesitancy, No urinary incontinence, No urinary retention, No urinary urgency Neurologic: No balance problems, No memory loss, No numbness/tingling, No paralysis, No problem reported, No vertigo, No weakness Psychiatric: No anhedonism, No anxiety, No depression symptoms, No insomnia, No problem reported, No substance abuse Endocrine: No excessive thirst, No excessive urination, No fatigue, No problem reported Hematologic / Lymphatic: No abnormal bleeding/bruising, No clotting problems, No night sweats, No problem reported, No swollen lymph nodes Integumentary: No bleeding, No color change, No itch, No new/changing skin lesions, No problem reported, No rash Allergic / Immunologic: No environmental allergies, No food allergies, No frequent infections, No hives, No pet sensitivities, No poor healing, No problem reported, No prolonged convalescence, No seasonal allergies Physical Exam Vital Signs Date Time Temp Pulse Resp B/P Pulse Ox O2 Delivery O2 Flow Rate FiO2 08/21/16 13:02 77 16 159/103 99 Room Air 08/21/16 11:13 87 16 181/118 95 Room Air 08/21/16 10:29 191/122 08/21/16 10:03 194/128 08/21/16 10:01 90 18 213/130 96 Room Air 08/21/16 08:08 36.6 93 18 189/110 99 Room Air General Appearance: WD/WN, no apparent distress Head: normocephalic, atraumatic Eyes: normal inspection, EOMI ENT: normal ENT inspection, hearing grossly normal Neck: supple, no adenopathy, thyroid normal Respiratory/Chest: chest non-tender, lungs clear, normal breath sounds, no respiratory distress, no accessory muscle use Cardiovascular: regular rate, rhythm, no edema, no gallop, no JVD, no murmur, normal peripheral pulses Abdomen/GI: + tenderness (RUQ) Back: normal inspection Extremities/Musculoskelatal: normal inspection, no calf tenderness, normal capillary refill, no pedal edema Neurologic/Psych: nurse practitioner home assessments II-XII nml as tested, no motor/sensory deficits, alert, normal mood/affect, normal reflexes, oriented x 3 Skin: normal color, warm/dry, no rash Diagnostics Laboratory Results Results Past 24 Hours Test 08/21/16 08:20 08/21/16 09:22 08/21/16 13:16 Range/Units White Blood Count 12.21 4.8-10.8 K/uL Red Blood Count 3.46 4.7-6.1 M/uL Hemoglobin 10.1 14.0-18.0 g/dL Hematocrit 30.5 42-52 % Mean Corpuscular Volume 88.2 80-100 fL Mean Corpuscular Hemoglobin 29.2 25-34 pg Mean Corpuscular Hemoglobin Concent 33.1 32-36 g/dl Platelet Count 440 130-400 K/uL Mean Platelet Volume 9.5 7.4-10.4 fL Neutrophils (%) (Auto) 70.9 % Lymphocytes (%) (Auto) 20.1 % Monocytes (%) (Auto) 4.3 % Eosinophils (%) (Auto) 3.6 % Basophils (%) (Auto) 0.8 % Neutrophils # (Auto) 8.66 1.4-6.5 K/uL Lymphocytes # (Auto) 2.45 1.2-3.4 K/uL Monocytes # (Auto) 0.52 0.11-0.59 K/uL Eosinophils # (Auto) 0.44 0-0.5 K/uL Basophils # (Auto) 0.10 0-0.2 K/uL RDW Standard Deviation 45.1 36.4-46.3 fL RDW Coefficient of Variation 14.0 11.5-14.5 % Immature Granulocyte % (Auto) 0.3 % Immature Granulocyte # (Auto) 0.04 0.00-0.02 K/uL Sodium Level 141 136-145 mmol/L Potassium Level 5.1 3.5-5.1 mmol/L Chloride Level 111 98-107 mmol/L Carbon Dioxide Level 18 21-32 mmol/L Anion Gap 12.0 3-11 mmol/L Blood Urea Nitrogen 45 7-18 mg/dl Creatinine 3.80 0.60-1.40 mg/dl Est Creatinine Clear Calc Drug Dose 30.6 ml/min Estimated GFR () 22.9 Estimated GFR (Non- 19.7 BUN/Creatinine Ratio 11.8 10-20 Random Glucose 253 70-99 mg/dl Calcium Level 8.0 8.5-10.1 mg/dl Total Bilirubin 0.1 0.2-1 mg/dl Aspartate Amino Transf (AST/SGOT) 18 15-37 U/L Alanine Aminotransferase (ALT/SGPT) 30 12-78 U/L Alkaline Phosphatase 83 45-117 U/L Total Protein 6.2 6.4-8.2 gm/dl Albumin 1.7 3.4-5.0 gm/dl Globulin 4.5 2.5-4.0 gm/dl Albumin/Globulin Ratio 0.4 0.9-2 Urine Color YELLOW Urine Appearance CLOUDY CLEAR Urine pH 6.0 4.5-7.5 Urine Specific [place] 1.018 1.000-1.030 Urine Protein 4+ NEG Urine Glucose (UA) 3+ NEG Urine Ketones NEG NEG Urine Occult Blood 2+ NEG Urine Nitrite NEG NEG Urine Bilirubin NEG NEG Urine Urobilinogen NEG NEG Urine Leukocyte Esterase NEG NEG Urine WBC (Auto) 1-5 0-5 /hpf Urine RBC (Auto) 10-30 0-4 /hpf Urine Epithelial Cells (Auto) >30 0-5 /lpf Urine Bacteria (Auto) NEG NEG Urine Renal Epithelial Cells 0-5 /lpf Urine Pathogenic Casts 1-5 GRANULAR CASTS 0 /lpf Impression Assessment and Plan The patient is a 31 year old male with PMHx of HTN, CKD,DMII and tobacco abuse, presented wit slowly progressive RUQ abdominal pain. RUQ pain appears to be pleuritic in nature check D dimer and V/Q scan R/O PE if D dimer is very high will consider ruling out hepatic or portal vein thrombosis especially if liver enz increases by tomorrow LFTs, lipase in am pain management PATRICK/CKD does not appear to be pre renal keep IVF on KVO 15ml /hr consult professional caster SED rate crp nti dnase C ANCa MPO/PR3 R/O auto immune disease UDS HIV screening HTN crisis decrease BP by only 20% start home meds hydralazine prn HTN nocturnal pulse ox study r/o IRWIN DMII continue SSI consult pharmacy to adjust insulin dose DVT prophylaxis w heparin sq bid VTE Prophylaxis VTE Risk Assessment Done? Y/N: Yes Risk Level: Moderate
[2016-08-21 14:10] LABS: C-REACTIVE PROTEIN < 0.29 mg/dl (0-0.29)
[2016-08-21 14:36] VITALS: BP_SYST 168; BP_SYST 172; BP_DIAS 102; PULSE 78; TEMP 36.3; O2SAT 97; Ht 182.9 cm; Wt 85.6 kg
[2016-08-21 15:09] VITALS: BP 180/114; PULSE 85; TEMP 36.3; O2SAT 97
[2016-08-21] MEDS: LABETALOL HCL 200 MG TAB PO SCH ×2 (15:47→21:10)
[2016-08-21] MEDS ORDERED: PHARMACY GLYCEMIC MGMT CONSULT PRN (16:33)
--- NOTE | 2016-08-21 17:52 | DIAGNOSTIC IMAGING REPORT ---
LUNG IMAGING VQ HISTORY: r/o PE, pleuritic chest pain with renal failure TECHNIQUE: Immediately following the inhalation of 32 mCi of technetium 99 M DTPA for the ventilation scan and the intravenous injection of 6.3 mCi of technetium 99 M MAA for the perfusion scan, anterior, posterior, oblique, and lateral views the chest were performed. COMPARISON STUDY: Chest 08/21/2016. FINDINGS: Blunting of the bilateral costophrenic sulci, left greater than right. There are no segmental or mismatched defects identified. IMPRESSION: Above findings are consistent with a very low probability scan. Electronically signed by: Bandar Drake M.D. 08/21/2016 5:50 PM Dictated Date/Time: 08/21/2016 5:48 PM
[2016-08-21] MEDS: INSULIN ASPART 100 UNITS/ML 3 ML PEN SC SCH ×2 (17:57→21:00)
[2016-08-21 18:01] VITALS: BP 136/77; PULSE 85; TEMP 36.3; O2SAT 97
[2016-08-21] MEDS ORDERED: MoRPHine SULFATE 2 MG/ML CARP IV PRN (18:15)
[2016-08-21] MEDS ORDERED: MoRPHine SULFATE 2 MG/ML CARP ONE (18:18)
[2016-08-21 19:20] VITALS: BP 119/86; PULSE 83; TEMP 36.5; O2SAT 97
[2016-08-21] MEDS ORDERED: CLONIDINE HCL 0.1 MG TAB PO SCH (21:00)
[2016-08-21] MEDS ORDERED: ROSUVASTATIN CALCIUM 20 MG TAB PO SCH (21:00)
[2016-08-21] MEDS: HEPARIN SOD 5000 UNIT/0.5 ML CARP SQ SCH (21:11)
[2016-08-21] MEDS: INSULIN GLARGINE SOLOSTAR 100 UNITS/ML 3 ML PEN SC SCH (21:12)
[2016-08-21] MEDS ORDERED: CEFTRIAXONE SOD INJ 1 GM in DEXTROSE 5% ADD-VANTAGE 50ML 50 ML IV SCH (22:00)
[2016-08-21] MEDS ORDERED: AZITHROMYCIN IV 250 MG in DEXTROSE 5% 250ML 250 ML IV SCH (23:00)
[2016-08-21 23:10] VITALS: BP 138/86; PULSE 82; TEMP 36.4; O2SAT 98
[2016-08-21] MEDS: OXYCODONE/ACETAMINOPHEN 5-325 TAB PO PRN (23:16)
[2016-08-22 04:03] VITALS: BP 121/75; PULSE 77; TEMP 36.5; O2SAT 96
--- NOTE | 2016-08-22 05:56 | DIAGNOSTIC IMAGING REPORT ---
Duplex Doppler DUPLEX PORTAL HEPATIC VEINS CLINICAL HISTORY: RUQ pain and positive d dimer pain. Edema. TECHNIQUE: Duplex Doppler ultrasound COMPARISON STUDY: None FINDINGS: Normal study IMPRESSION: Normal study. Electronically signed by: Yeyo Aguilar M.D. 08/22/2016 5:55 AM Dictated Date/Time: 08/22/2016 5:54 AM
[2016-08-22 07:41] LABS: BASO % 0.8 %; BASO ABS # 0.07 K/uL (0-0.2); COMPLETE YES; EOS % 4.3 %; HEMATOCRIT 28.6 % (42-52); IG% 0.2 %; LYMPH % 25.1 %; LYMPH ABS # 2.16 K/uL (1.2-3.4); MEAN CELL VOLUME 90.8 fL (80-100); MEAN CORPUSCULAR HEMOGLOBIN 29.8 pg (25-34); MEAN CORPUSCULAR HGB CONC 32.9 g/dl (32-36); MEAN PLATELET VOLUME 9.5 fL (7.4-10.4); MONO % 6.1 %; NEUT % 63.5 %; PLATELET COUNT 392 K/uL (130-400); RED BLOOD COUNT 3.15 M/uL (4.7-6.1); WHITE BLOOD COUNT 8.59 K/uL (4.8-10.8)
[2016-08-22 07:50] LABS: INR 0.9 (0.9-1.1); PROTHROMBIN TIME (PATIENT) 10.1 SECONDS (9.0-12.0)
[2016-08-22] MEDS: INSULIN ASPART 100 UNITS/ML 3 ML PEN SC SCH ×2 (08:10→11:00)
[2016-08-22] MEDS: HEPARIN SOD 5000 UNIT/0.5 ML CARP SQ SCH (08:11)
[2016-08-22] MEDS: INSULIN GLARGINE SOLOSTAR 100 UNITS/ML 3 ML PEN SC SCH (08:12)
[2016-08-22 08:13] LABS: CALCIUM 7.8 mg/dl (8.5-10.1); CREATININE 4.4 mg/dl (0.60-1.40); MAGNESIUM 1.8 mg/dl (1.8-2.4); POTASSIUM 5.6 mmol/L (3.5-5.1)
[2016-08-22] MEDS: LABETALOL HCL 200 MG TAB PO SCH ×2 (08:14→14:11)
[2016-08-22 08:16] LABS: ALB/GLOB RATIO 0.4 (0.9-2); CHOLESTEROL/HDL RATIO 4.8; PHOSPHORUS 6.8 mg/dl (2.5-4.9)
[2016-08-22] MEDS: OXYCODONE/ACETAMINOPHEN 5-325 TAB PO PRN (08:22)
[2016-08-22 08:27] VITALS: BP 146/94; PULSE 68; TEMP 36.6; O2SAT 98
[2016-08-22] MEDS ORDERED: AMLODIPINE BESYLATE 5 MG TAB PO SCH (09:00)
[2016-08-22] MEDS ORDERED: CALCIUM CARBONATE 500 MG CHEWABLE PO PRN (10:45)
[2016-08-22] MEDS ORDERED: NURSING VERBAL MED ORDER ONE (11:00)
[2016-08-22] MEDS ORDERED: SODIUM POLYST. SULF SUSP 15G/60ML PO ONE ×2 (11:15→11:30)
[2016-08-22 12:02] VITALS: BP 130/87; PULSE 83; TEMP 36.7; O2SAT 96
--- NOTE | 2016-08-22 12:29 | Nephrology Consultation ---
Nephrology Consultation Date & Providers Date of Consultation: Aug 22, 2016. Primary Care Provider: Carmelita Alejandro M.D. Referring Provider: Reason for Consultation Evaluation management for acute kidney injury, hyperkalemia and metabolic acidosis with history of chronic kidney disease. History of Present Illness Yariel is a 31-year-old gentlemen with past medical history significant for hypertension, diabetes, stage 3 chronic kidney disease, nephrotic syndrome with rapidly worsening renal function over last few months admitted to the hospital with acute kidney injury, hyper kalemia and metabolic acidosis. Nephrologic consult was requested for further management. Electronic medical records including labs and imaging are reviewed detail during patient's visit. Yariel presented to the emergency room yesterday with progressive right upper quadrant abdominal pain which has been there for last 2-3 weeks worsened significantly before he presented to the emergency room. On admission his vital signs are stable. CT abdomen pelvis was significant for ascites without other intra-abdominal pathology. V/Q scan was low probability for PE. Liver ultrasound was unremarkable. Lab showed worsening renal function, creatinine 3.8 , potassium 5.4 and metabolic acidosis. Yariel has history of a chronic kidney disease which was thought to be secondary to hypertensive and diabetic nephropathy, baseline creatinine has been around 2.0 until April 2016. He has been following with Dr. Khan as an outpatient. Renal function started to worsen pretty rapidly since April 2016 and creatinine lately has been around 3-3.5. Urinalysis was positive for 4+ protein and more than 30 RBCs per high-power field and has nephrotic range proteinuria, hypoalbuminemia and lower extremity edema. Serological workup including complements, hepatitis serology, LIVAN and ANCA was unremarkable. He was seen by Dr. Khan on 08/20/2016 and was being arranged to have renal biopsy for further evaluation for nephrotic syndrome and progressive worsening of renal function. On admission creatinine was 3.8 which has been worsening and this this morning creatinine was 4.4, hyperkalemia worsened to potassium 5.6, metabolic acidosis also seemed to be worsening, bicarb 18 this morning. Blood pressure has been running high. He reports that he has been urinating less lately. He continues to have the right upper quadrant pain without any significant improvement . Denies shortness of breath, chest pain or palpitation. Allergies Coded Allergies: No Known Allergies (Unverified , NKA, 08/21/16) Inpatient Medications Current Inpatient Medications Medications (Trade) Dose Ordered Sig/Richie Route Start Time Stop Time Status Last Admin Dose Admin Amlodipine Besylate (Norvasc Tab) 10 mg QAM PO 08/22/16 09:00 09/21/16 08:59 08/22/16 08:14 10 MG Clonidine HCl (Catapres Tab) 0.1 mg QPM PO 08/21/16 21:00 09/20/16 20:59 08/21/16 21:10 0.1 MG Insulin Glargine (Lantus Solostar Pen) BID SC 08/21/16 21:00 09/20/16 20:59 08/22/16 08:12 10 UNIT Labetalol HCl (Normodyne Tab) 200 mg TID PO 08/21/16 14:00 09/20/16 13:59 08/22/16 08:14 200 MG Rosuvastatin Calcium (Crestor Tab) 40 mg QPM PO 08/21/16 21:00 09/20/16 20:59 08/21/16 21:11 40 MG Heparin Sodium (Porcine) 5000 unit 5,000 unit Q12 SQ 08/21/16 21:00 09/20/16 20:59 08/22/16 08:11 5,000 UNIT Sodium Chloride (Nss 1000ml) 1,000 ml @ 15 mls/hr Q24H IV 08/21/16 13:17 09/20/16 13:16 08/21/16 15:41 15 MLS/HR Acetaminophen (Tylenol Tab) 650 mg Q4H PRN PO 08/21/16 13:30 09/20/16 13:29 Al Hydrox/Mg Hydrox/Simethicone (Maalox Max Susp) 15 ml Q4H PRN PO 08/21/16 13:30 09/20/16 13:29 Magnesium Hydroxide (Milk Of Magnesia Susp) 30 ml Q12H PRN PO 08/21/16 13:30 09/20/16 13:29 Zolpidem Tartrate (Ambien Tab) 5 mg HSZ PRN PO 08/21/16 13:30 09/20/16 13:29 Nitroglycerin (Nitrostat Tab) 0.4 mg UD PRN SL 08/21/16 13:30 09/20/16 13:29 Polyethylene (Miralax Powder Packet) 17 gm DAILY PRN PO 08/21/16 13:30 09/20/16 13:29 Insulin Aspart (novoLOG ASPART) SLIDING SCALE If C... ACHS SC 08/21/16 16:15 09/20/16 16:14 08/22/16 08:10 4 UNITS Glucose (Glucose 40% Gel) 15-30 GRAMS 15 GRAMS... UD PRN PO 08/21/16 13:30 09/20/16 13:29 Glucose (Glucose Chew Tab) 4-8 Tablets 4 Tabl... UD PRN PO 08/21/16 13:30 09/20/16 13:29 Dextrose (Dextrose 50% 50ML Syringe) 25-50ML OF 50% DW IV FOR... UD PRN IV 08/21/16 13:30 09/20/16 13:29 Glucagon (Glucagon Inj) 1 mg UD PRN SQ 08/21/16 13:30 09/20/16 13:29 Miscellaneous Information (Consult Glycemic Management Pharmacy) 1 ea UD PRN N/A 08/21/16 16:33 09/20/16 16:32 Hydralazine HCl (HydrALAZINE INJ) 20 mg Q6H PRN IV. 08/21/16 13:30 09/20/16 13:29 08/21/16 15:13 20 MG Morphine Sulfate (MoRPHine SULFATE INJ) 1 mg Q6H PRN IV 08/21/16 18:15 09/04/16 18:14 Oxycodone/ Acetaminophen 1 tab 1 tab Q4H PRN PO 08/21/16 18:15 09/04/16 18:14 08/22/16 08:22 1 TAB Azithromycin 250 mg/Dextrose 252.5 ml @ 125 mls/hr Q24H IV 08/21/16 23:00 08/28/16 22:59 08/21/16 23:10 125 MLS/HR Ceftriaxone Sodium/Dextrose (Rocephin Inj/ Dextrose Add-[place] 50ML) 50 ml @ 100 mls/hr Q24H IV 08/21/16 22:00 08/28/16 21:59 08/21/16 22:24 100 MLS/HR Family History Diabetes mellitus FH: kidney disease Heart disease Hypertension Kidney stones Social History Smoking Status: Current Every Day Smoker Marital Status: single Occupation: unemployed Review of Systems A complete review of systems was performed. Pertinent positives are noted above. All other systems are negative. Physical Exam Date Time Temp Pulse Resp B/P Pulse Ox O2 Delivery O2 Flow Rate FiO2 08/22/16 08:27 36.6 68 20 146/94 98 Room Air 08/22/16 08:00 Room Air 08/22/16 04:03 36.5 77 16 121/75 96 Room Air 08/22/16 04:00 Room Air 08/22/16 00:05 Room Air 08/21/16 23:10 36.4 82 18 138/86 98 Room Air 08/21/16 20:00 Room Air 08/21/16 19:20 36.5 83 18 119/86 97 Room Air 08/21/16 18:01 36.3 85 18 136/77 97 Room Air 08/21/16 15:09 36.3 85 18 180/114 97 Room Air 08/21/16 14:36 36.3 78 17 168/102 97 Room Air 172/102 08/21/16 13:59 78 16 161/100 99 Room Air 08/21/16 13:02 77 16 159/103 99 Room Air 08/21/16 11:13 87 16 181/118 95 Room Air GENERAL: Young male, AAA x 3, pleasant, healthy-appearing, not in any distress. HEENT: Atraumatic, normocephalic. NECK: Supple, no JVD, no carotid bruit appreciated. ENT: No sinus tenderness MOUTH and THROAT: Moist oral mucosa, no oral ulcer or pharyngeal erythema RESPIRATORY: Normal breathing efforts, no accessory muscle use, clear to auscultation bilaterally, no wheezes or rales. CARDIOVASCULAR: S1, S2 normal, rate rhythm regular. ABDOMEN: Soft, nontender, distended, positive bowel sound. MUSCULOSKELETAL: No CVA tenderness. No joint swelling, erythema or tenderness. Normal range of motion. SKIN: No skin rash EXTREMITY: 2-3 + lower extremity edema NEURO: No gross focal neurological deficit, speech fluent. PSYCHIATRY: Normal mood and judgment Laboratory Results Last 24 Hours Test 08/21/16 13:52 08/21/16 15:55 08/21/16 21:02 08/21/16 21:30 D-Dimer 1040 ug/L FEU Bedside Glucose 227 mg/dl 139 mg/dl Test 08/22/16 00:55 08/22/16 06:20 08/22/16 07:31 Total Creatine Kinase 331 U/L 269 U/L Troponin I 0.104 ng/ml 0.083 ng/ml Bedside Glucose 139 mg/dl White Blood Count 8.59 K/uL Red Blood Count 3.15 M/uL Hemoglobin 9.4 g/dL Hematocrit 28.6 % Mean Corpuscular Volume 90.8 fL Mean Corpuscular Hemoglobin 29.8 pg Mean Corpuscular Hemoglobin Concent 32.9 g/dl Platelet Count 392 K/uL Mean Platelet Volume 9.5 fL Neutrophils (%) (Auto) 63.5 % Lymphocytes (%) (Auto) 25.1 % Monocytes (%) (Auto) 6.1 % Eosinophils (%) (Auto) 4.3 % Basophils (%) (Auto) 0.8 % Neutrophils # (Auto) 5.45 K/uL Lymphocytes # (Auto) 2.16 K/uL Monocytes # (Auto) 0.52 K/uL Eosinophils # (Auto) 0.37 K/uL Basophils # (Auto) 0.07 K/uL RDW Standard Deviation 46.4 fL RDW Coefficient of Variation 14.0 % Immature Granulocyte % (Auto) 0.2 % Immature Granulocyte # (Auto) 0.02 K/uL Prothrombin Time 10.1 SECONDS Prothromb Time International Ratio 0.9 Sodium Level 141 mmol/L Potassium Level 5.6 mmol/L Chloride Level 113 mmol/L Carbon Dioxide Level 18 mmol/L Anion Gap 10.0 mmol/L Blood Urea Nitrogen 53 mg/dl Creatinine 4.40 mg/dl Est Creatinine Clear Calc Drug Dose 26.5 ml/min Estimated GFR () 19.2 Estimated GFR (Non- 16.5 BUN/Creatinine Ratio 12.0 Random Glucose 123 mg/dl Lactic Acid Level 0.5 mmol/L Calcium Level 7.8 mg/dl Phosphorus Level 6.8 mg/dl Magnesium Level 1.8 mg/dl Total Bilirubin 0.1 mg/dl Aspartate Amino Transf (AST/SGOT) 12 U/L Alanine Aminotransferase (ALT/SGPT) 21 U/L Alkaline Phosphatase 70 U/L Total Protein 5.3 gm/dl Albumin 1.5 gm/dl Globulin 3.8 gm/dl Albumin/Globulin Ratio 0.4 Triglycerides Level 231 mg/dl Cholesterol Level 152 mg/dl HDL Cholesterol 32 mg/dl LDL Cholesterol, Calculated 74 mg/dl VLDL Cholesterol, Calculated 46 mg/dl Cholesterol/HDL Ratio 4.8 Dani Saldivar is a 31-year-old gentlemen with CKD with recent progressive worsening and nephrotic syndrome in the setting of longstanding history of diabetes, hypertension and smoking. prior workup including serological workup was unremarkable and he was getting scheduled to have renal biopsy for further evaluation. Nephrotic syndrome and progressive worsening of renal function could be secondary to underlying diabetic nephropathy however possibility for glomerular disease including FSGS or membranous nephropathy remains. Recommendations --stop IV fluid as patient does not seem to be volume depleted and IV fluid is probably not going to help and even worsen the volume status since renal function has been worsening, UO low and has significant hypoalbuminemia --give Kayexalate 30 gram p.o. x1 dose now --Start on oral sodium bicarbonate --monitor renal function closely, renal function may continue to worsen specially with significant electrolyte abnormality patient may need to get prepared for dialysis in next 24-48 hours -- since renal function has been worsening rather rapidly over last 2-3 months with nephrotic syndrome, serological workup negative, possibility for underlying glomerular pathology other than diabetic nephropathy remains --Discussed with transferring patient to a facility where he can get renal biopsy immediately and can be started on immune suppressive therapy if indicated from renal pathology and can be monitored for need for emergency dialysis. Patient agreed to go to [facility] if that can be arranged otherwise he will stay here and wait for kidney biopsy as an outpatient Thank you for allowing me to participate in your patient's care. It was a pleasure to see Yariel This chart was completed utilizing [employer] Speech and voice recognition software. Grammatical errors, random word insertions, pronoun errors and incomplete sentences are occasional consequences of this system. Any questions or concerns about the content, text or information contained within the body of this dictation should be addressed directly to the physician for clarification.
[2016-08-22] MEDS ORDERED: INSDGIPEN SC (14:06)
[2016-08-22] MEDS ORDERED: HPRIS5M SQ (14:06)
[2016-08-22] MEDS ORDERED: SODI650T9 PO (14:06)
[2016-08-22] MEDS ORDERED: ZTHM250 OR (14:06)
[2016-08-22] MEDS ORDERED: OXYC-57 PO (14:06)
[2016-08-22] MEDS ORDERED: [UNRECOGNIZED DRUG - OTHER] (14:06)
[2016-08-22] MEDS ORDERED: HYDI IV. (14:06)
--- NOTE | 2016-08-22 14:19 | Discharge Summary ---
Discharge Summary Admission Date: Aug 21, 2016 at 13:23 Discharge Date: Aug 22, 2016 Discharge Disposition: Acute care facility Problems/Secondary Diagnoses: (1) Chronic Kidney Disease, Stage 3 (Moderate) Status: Chronic (2) Diabetes Status: Chronic (3) Hyperlipidemia, Unspecified Status: Chronic (4) Hypertension Status: Chronic (5) Hypertensive Retinopathy, Left Eye Status: Chronic Medication Reconciliation New Medications: Azithromycin (Azithromycin) 250 Mg Tab 1 TAB OR DAILY for 30 Days Heparin Sod (Porcine) (Heparin Sodium) 5,000 Unit/0.5 Ml Inj 5000 UNIT SQ Q12 for 30 Days Hydralazine HCl (Hydralazine HCl) 20 Mg/Ml Inj 20 MG IV. Q6H PRN for SBP > 180 for 30 Days Insulin Glargine (Lantus Solostar) 100 Unit/Ml Inj 0 UNIT SC BID for 30 Days Oxycodone/Acetaminophen 5MG/325MG (Percocet 5MG/325MG) Tab 1 TAB PO Q4H PRN for Pain for 30 Days, TAB PAIN Sodium Bicarbonate (Sodium Bicarbonate) 650 Mg Tab 650 MG PO BID for 30 Days, #60 TAB [Pharmacy Glycemic Mgmt Consult] () 1 EA MISC 1 EA N/A UD PRN for Consult Continued Medications: Amlodipine (Norvasc) 10 Mg Tab 10 MG PO QAM, TAB Clonidine Hcl (Catapres) 0.1 Mg Tab 0.1 MG PO QPM, TAB Labetalol (Normodyne) 200 Mg Tab 200 MG PO TID, TAB Rosuvastatin Calcium (Rosuvastatin Calcium) 40 Mg Tab 40 MG PO QPM Discontinued Medications: Insulin Aspart (Novolog) 100 Units/Ml Inj UNITS SQ WM PER SLIDING SCALE Insulin Glargine (Lantus) 100 Unit/Ml Inj 25 UNITS SC QPM, VIAL Discharge Exam Review of Systems: Constitutional: No chills, No fatigue, No fever, No problem reported, No sweats, No weakness, No weight loss Eyes: No diplopia, No discharge, No eye pain, No problem reported, No redness, No worsening of vision ENT: No dental problems, No hearing loss, No nasal symptoms, No problem reported, No sore throat, No tinnitus, No trouble swallowing, No unusual epistaxis Respiratory: + shortness of breath, No cough, No dyspnea at rest, No dyspnea on exertion, No hemoptysis, No problem reported, No sputum, No wheezing Cardiovascular: No PND, No chest pain, No claudication, No edema, No orthopnea, No palpitations, No problem reported Abdomen: + pain (RUQ), No GI bleeding, No constipation, No diarrhea, No nausea, No problem reported, No vomiting Neurologic: No balance problems, No memory loss, No numbness/tingling, No paralysis, No problem reported, No vertigo, No weakness Psychiatric: No anhedonism, No anxiety, No depression symptoms, No insomnia , No problem reported, No substance abuse Endocrine: No excessive thirst, No excessive urination, No fatigue, No problem reported Hematologic / Lymphatic: No abnormal bleeding/bruising, No clotting problems , No night sweats, No problem reported, No swollen lymph nodes Integumentary: No bleeding, No color change, No itch, No new/changing skin lesions, No problem reported, No rash Physical Exam: General Appearance: WD/WN, + mild distress Eyes: normal inspection, EOMI ENT: normal ENT inspection, hearing grossly normal Neck: supple Respiratory/Chest: chest non-tender, lungs clear, normal breath sounds Cardiovascular: regular rate, rhythm, no edema, no gallop, no JVD, no murmur Abdomen / GI: normal bowel sounds, soft, no organomegaly, no pulsatile mass , + tenderness Extremities: normal inspection, no calf tenderness Neurologic/Psychiatric: black top roller II-XII nml as tested, no motor/sensory deficits , alert, normal mood/affect Skin: normal color, warm/dry, no rash Hospital Course The patient is a 31 year old male with PMHx of HTN, CKD,DMII and tobacco abuse, presented wit slowly progressive RUQ abdominal pain. He has CKD stage 2-3, thought to be secondary to hypertensive and diabetic nephropathy, baseline creatinine has been around 2.0 until April 2016. He has been following with Dr. Khan as an outpatient. 07/28/2016, the following tests were done complement C4 was 41 (16-47) complement C3 was 138 (90-180) Cryoglobulin, non detected ASNA negative Antiproteinase, < 1 Anti myeloperoxidase < 1 ANCA negative SPEP/UPEP was not done Renal function started to worsen pretty rapidly since April 2016 and creatinine lately has been around 3-3.5. Urinalysis was positive for 4+ protein and more than 30 RBCs per high-power field and has nephrotic range proteinuria, hypoalbuminemia and lower extremity edema. He was seen by Dr. Khan on 08/20/2016 and was being arranged to have renal biopsy for further evaluation for nephrotic syndrome and progressive worsening of renal function. On admission creatinine was 3.8 which has been worsening and this this morning creatinine was 4.4, hyperkalemia worsened to potassium 5.6, metabolic acidosis also seemed to be worsening, bicarb 18 this morning. Blood pressure has been running high. He reports that he has been urinating less lately. He continues to have the right upper quadrant pain without any significant improvement . Denies shortness of breath, chest pain or palpitation. for his RUQ pain appears to be pleuritic in nature border line elevated D dimer , V/Q scan showed very low probability for PE DUPLEX PORTAL HEPATIC VEINS was normal CXR showed B/L pleural effusion, receievd one dose azithromycin adn one dose ceftiaxone 08/22/16 ( Is it possible that decline in renal function over night is interstitial nephritis from one dose of ceftriaxone ? ) HIV screening was not done in our facility HTN crisis decrease BP by only 20% started home meds hydralazine prn HTN nocturnal pulse ox study r/o IRWIN as per economics analyst recommendation he will be transferred to [facility] for urgent renal biopsy and possible initiation of dialysis This includes examination of the patient, discharge planning, medication reconciliation, and communication with other providers. Discharge Instructions Please refer to the electronic Patient Visit Report (Discharge Instructions) for additional information.
--- NOTE | 2016-08-22 14:20 | Discharge Instructions ---
Discharge Instructions Admission Admission Date: Aug 21, 2016 at 13:23 Admission Diagnosis: Acute On Chronic Renal Failure. Discharge Care Plan - Problem: Medical Problems: (1) Anasarca (2) Anemia (3) Bilateral pleural effusion (4) Chronic kidney disease Care Plan - Goal(s): Decrease discomfort Care Plan - Instructions: Recommended Home Diet: Renal, Type 2 Diabetes AHA VTE Core Measure Inpt VTE Proph given/why not?: Unfractionated heparin SQ Laboratory Results Test Results: Hemoglobin A1c Test 08/22/16 07:31 Range/Units Lipid Panel Test 08/22/16 07:31 Range/Units Triglycerides Level 231 H 0-150 mg/dl Cholesterol Level 152 0-200 mg/dl HDL Cholesterol 32 mg/dl Cholesterol/HDL Ratio 4.8 LDL Cholesterol, Calculated 74 mg/dl Greg Jang Recommendations: Call your doctor if: * Temperature above 101 degrees * Pain not relieved by pain medicine ordered * There is increased drainage or redness from any incision * You have any unanswered questions or concerns. Your Doctors Instructions noted above were prepared by provider Chelita Barney.
--- NOTE | 2016-08-22 14:21 | ECHOCARDIOGRAM REPORT ---
*NOTICE TO RECEIVING LIBERTARIAN AGENCY This information is strictly Confidential and protected under [place] law. [place] law prohibits you from making any further disclosure of this information unless further disclosure is expressly permitted by the written consent of the person to whom it pertains or is authorized by law. A general authorization for the release of medical or other information is not sufficient for this purpose. Hospital accepts no responsibility if the information is made available to any other person, INCLUDING THE PATIENT. Interpretation Summary * Conclusions -- * 1. Mildly dilated LV. Mild concentric LVH. * 2. Moderate global LV dysfunction. LVEF 35-40%. * 3. Normal RV size and function. * 4. No significant valvular pathology. * 5. Normal estimated RA pressure. * 6. Moderate left pleural effusion * 7. Compared with prior study on 02/16/2016: Global moderate LV dysfunction is new. Pleural effusion is new. Procedure Details * A complete two-dimensional transthoracic echocardiogram was performed (2D, M-mode, Doppler and color flow Doppler). Left Ventricle * The left ventricle is mildly dilated. * There is mild concentric left ventricular hypertrophy. * Ejection Fraction = 35-40%. * There is moderate global hypokinesis of the left ventricle. Right Ventricle * The right ventricle is grossly normal size. * The right ventricular systolic function is normal as assessed by tricuspid annular plane systolic excursion (TAPSE) (normal >1.5 cm). Atria * The left atrial size is normal. * Right atrial size is normal. Mitral Valve * The mitral valve is grossly normal. * There is no mitral valve stenosis. * There is trace mitral regurgitation. Tricuspid Valve * The tricuspid valve is not well visualized, but is grossly normal. * There is no tricuspid stenosis. * Significant tricuspid regurgitation is absent. Aortic Valve * The aortic valve opens well. * The aortic valve is trileaflet. * No hemodynamically significant valvular aortic stenosis. * There is no significant aortic regurgitation. Pulmonic Valve * The pulmonic valve leaflets are thin and pliable; valve motion is normal. * There is no pulmonic valvular stenosis. * Trace pulmonic valvular regurgitation. Great Vessels * The aortic root and proximal ascending aorta are normal sized. * No Doppler or imaging evidence of an aortic coarctation. Pericardium/Pleural * Trivial pericardial effusion * Moderate size left pleural effusion. Great Vessels * Normal inferior vena cava size and collapsability with sniff indicates a normal right atrial pressure of 3 mmHg MMode 2D Measurements and Calculations IVSd 1.0 cm LVIDd 4.9 cm LVIDs 3.4 cm LVPWd 1.3 cm IVS/LVPW 0.79 FS 30.9 % EDV(Teich) 113.0 ml ESV(Teich) 47.1 ml EF(Teich) 58.3 % EDV(cubed) 117.9 ml ESV(cubed) 38.9 ml EF(cubed) 67.0 % LV mass(C)d 210.5 grams LV mass(C)dI 101.5 grams/m\S\2 SV(Teich) 65.9 ml SI(Teich) 31.8 ml/m\S\2 SV(cubed) 78.9 ml SI(cubed) 38.0 ml/m\S\2 Ao root diam 3.0 cm Ao root area 6.9 cm\S\2 ACS 1.7 cm LA dimension 3.1 cm asc Aorta Diam 2.6 cm LA/Ao 1.0 LVOT diam 2.0 cm LVOT area 3.3 cm\S\2 LVAd ap4 37.7 cm\S\2 LVLd ap4 8.2 cm EDV(MOD-sp4) 142.9 ml EDV(sp4-el) 147.6 ml LVAs ap4 23.6 cm\S\2 LVLs ap4 7.4 cm ESV(MOD-sp4) 62.7 ml ESV(sp4-el) 64.1 ml EF(MOD-sp4) 56.1 % EF(sp4-el) 56.6 % LVAd ap2 40.7 cm\S\2 LVLd ap2 9.4 cm EDV(MOD-sp2) 149.3 ml EDV(sp2-el) 150.2 ml LVAs ap2 29.5 cm\S\2 LVLs ap2 8.7 cm ESV(MOD-sp2) 83.4 ml ESV(sp2-el) 84.6 ml EF(MOD-sp2) 44.1 % EF(sp2-el) 43.6 % LVLd %diff 12.7 % EDV(MOD-bp) 155.2 ml LVLs %diff 15.1 % ESV(MOD-bp) 78.4 ml EF(MOD-bp) 49.5 % SV(MOD-sp4) 80.2 ml SI(MOD-sp4) 38.6 ml/m\S\2 SV(MOD-sp2) 65.9 ml SI(MOD-sp2) 31.8 ml/m\S\2 SV(MOD-bp) 76.8 ml SI(MOD-bp) 37.0 ml/m\S\2 SV(sp4-el) 83.6 ml SI(sp4-el) 40.3 ml/m\S\2 SV(sp2-el) 65.5 ml SI(sp2-el) 31.6 ml/m\S\2 Doppler Measurements and Calculations MV E max bety 117.5 cm/sec MV A max bety 111.3 cm/sec MV E/A 1.1 MV dec time 0.18 sec Ao V2 max 149.5 cm/sec Ao max PG 8.9 mmHg Ao max PG (full) 6.3 mmHg RODRIGO(V,A) 1.8 cm\S\2 RODRIGO(V,D) 1.8 cm\S\2 LV V1 max PG 2.7 mmHg LV V1 max 81.4 cm/sec PA V2 max 80.0 cm/sec PA max PG 2.6 mmHg PA acc slope 413.0 cm/sec\S\2 PA acc time 0.15 sec PI max bety 195.4 cm/sec PI max PG 15.3 mmHg PI dec slope 69.8 cm/sec\S\2 PI P1/2t 820.0 msec PA pr(Accel) 10.3 mmHg
[2016-08-22 14:34] VITALS: BP 130/87; PULSE 83; TEMP 36.7; O2SAT 96
[2016-08-22 15:58] VITALS: BP 122/78; PULSE 83; TEMP 36.3; O2SAT 94
[2016-08-22] MEDS ORDERED: SODIUM BICARBONATE 650 MG TAB PO SCH (21:00)
[2016-08-23 07:46] LABS: ESTIMATED AVERAGE GLUCOSE 246 mg/dl; HA1C FLAG Normal (Normal)
[2016-08-24 11:06] LABS: LEGIONELLA ANTIGEN NOT DETECTED
[2016-08-27 14:30] LABS: ALBUMIN 2.3 G/DL (3.8-4.8); FREE KAPPA 112.5 MG/L (3.3-19.4); FREE LAMBDA 101.9 MG/L (5.7-26.3); GAMMA GLOBULIN 0.6 G/DL (0.8-1.7); MYELOPEROXIDASE AB <1.0 AI (<1.0); TOTAL PROTEIN 5.5 G/DL (6.2-8.3)
[2016-12-02] MEDS ORDERED: CTP/1 PO (08:39)
[2016-12-02] MEDS ORDERED: ROSU40TA18 PO (08:39)
[2016-12-02] MEDS ORDERED: INSDGIPEN SC (09:27)
[2016-12-02] MEDS ORDERED: LABE1TAB28 PO (09:49)
== END 2016-08-22 17:12 | disposition short-term general hospital (02) | DRG 683 ==
LOC: ENRESERVTM → ENRESERVDT → C.EDB 08:06 → C.2T 13:23
PROVIDERS: ADMIT Internal Medicine; ATTEND Internal Medicine
DX: N17.9 Acute kidney failure, unspecified (principal); I16.9 Hypertensive crisis, unspecified; E87.2 Acidosis; R10.11 Right upper quadrant pain; I12.9 Hypertensive chronic kidney disease with stage 1 through stage 4 chronic kidney disease, or unspecified chronic kidney disease; N18.3 Chronic kidney disease, stage 3 (moderate); E11.22 Type 2 diabetes mellitus with diabetic chronic kidney disease; F17.210 Nicotine dependence, cigarettes, uncomplicated; Z79.4 Long term (current) use of insulin; Z79.899 Other long term (current) drug therapy; Z84.1 Family history of disorders of kidney and ureter; Z83.3 Family history of diabetes mellitus; Z82.49 Family history of ischemic heart disease and other diseases of the circulatory system

== ENCOUNTER → 2016-09-03 | Outpatient (CLI) | payer OTHER ==
[~2016-09-03] MED LIST changes: +AMLO-114 PO; +BUME1TAB PO; +CALC667C4 PO; +CTP/1 PO; +HPRIS5M SQ; +HYDI IV.; -HYDR-5688 PO; -INSDGI SC; +INSDGIPEN SC; +LABE1TAB28 PO; -NRV5 PO; +NVLG SQ; -NVLGI SC; +OXYC-57 PO; +PENI-82 PO; +ROSU40TA18 PO; -ROSU5TAB PO; +SODI650T8 PO; +SODI650T9 PO; +ZTHM250 OR; +[UNRECOGNIZED DRUG - OTHER]
[2016-09-03 14:58] LABS: ALB/GLOB RATIO 0.4 (0.9-2); ALKALINE PHOSPHATASE 79 U/L (45-117); ALT/SGPT 32 U/L (12-78); AST/SGOT 34 U/L (15-37); BLOOD UREA NITROGEN 50 mg/dl (7-18); CALCIUM 7.7 mg/dl (8.5-10.1); CARBON DIOXIDE 21 mmol/L (21-32); CHLORIDE 112 mmol/L (98-107); GLUCOSE 429 mg/dl (70-99); MAGNESIUM 1.7 mg/dl (1.8-2.4); PHOSPHORUS 4.9 mg/dl (2.5-4.9); POTASSIUM 4.4 mmol/L (3.5-5.1); SODIUM 142 mmol/L (136-145)
[2016-09-03 15:13] LABS: BETA-HYDROXYBUTYRATE 1.01 mg/dL (0.2-2.81)
== END | disposition home or self-care (01) ==
LOC: C.LAB1850 13:45
PROVIDERS: ATTEND Internal Medicine Nephrology
DX: R80.9 Proteinuria, unspecified (principal); N04.9 Nephrotic syndrome with unspecified morphologic changes; R10.11 Right upper quadrant pain; N18.5 Chronic kidney disease, stage 5

== ENCOUNTER 2016-09-21 08:51 | Emergency (ER) | payer OTHER ==
[~2016-09-21] VITALS: Ht 182.9 cm; Wt 82.0 kg
[~2016-09-21 08:51] MED LIST changes: -BUME1TAB PO; -CALC667C4 PO; -CTP/1 PO; -LABE1TAB28 PO; -NVLG SQ; -PENI-82 PO; -ROSU40TA18 PO; -SODI650T8 PO
[2016-09-21 09:01] VITALS: TEMP 36.7; Ht 182.9 cm; Wt 82.0 kg
--- NOTE | 2016-09-21 09:25 | EMERGENCY ROOM VISIT NOTE ---
ED Visit Note First contact with patient: 09:04 CHIEF COMPLAINT: Toothache HISTORY OF PRESENT ILLNESS: This 31-year-old male patient presented to the emergency department ambulatory with a progressive toothache for past one day. The patient states that he has had a broken off tooth for several months, but he believes that another portion of the tooth broke off while eating yesterday. The patient believes it is coming from his left lower molar. The pain is now steady and severe and radiates to the face. The patient does not have a dentist appointment set up and admits that he has not contacted a dentist to make an appointment. They rate their pain a 7/10 and the ibuprofen and Tylenol they have been taking has not relieved the pain. Denies facial swelling or fever. The patient denies any discharge from the mouth. REVIEW OF SYSTEMS: A 6 system review of systems was completed with positives and pertinent negatives listed in the HPI. ALLERGIES: No known drug allergies MEDICATIONS: See med list PMH: Diabetes SOCIAL HISTORY: The patient lives locally with family. He is a smoker. PHYSICAL EXAM: Vitals are noted on the nurse's note and reviewed by myself. Vital signs stable. Temperature there is 6.7C orally. GENERAL: This is a 31- year-old male, in no acute distress, nondiaphoretic, well-developed well- nourished. Mouth: The left lower back molar is very carious, broken off, and the gum is swollen and tender around it, without any discharge or signs of an abscess. The remainder of the pharynx and tonsils are without erythema, edema, or exudate. The airway is patent. There is no facial swelling, cervical or submandibular lymphadenopathy. The patient appears uncomfortable and in pain. The patient has overall very poor dental hygiene. EARS: External auditory canals clear, tympanic membranes pearly negron without erythema or effusion bilaterally. ED COURSE: The patient was evaluated as above. The patient has been seen here several times previously for the same complaint. I did not feel that the patient should be given any further narcotic medications for his dental pain. He was given a prescription for penicillin and instructed to follow-up with a dentist for definitive care. He will return for any worsening of his current condition. He verbalized understanding of my assessment and treatment plan and was discharged home in good condition. DIAGNOSIS: Odontalgia Problem List Medical Problems: (1) Bilateral leg edema Status: Resolved (2) Chronic Kidney Disease, Stage 3 (Moderate) Status: Chronic (3) Dehydration Status: Resolved (4) Diabetes Status: Chronic (5) Elevated IOP Status: Resolved (6) Hyperglycemia Status: Resolved (7) Hyperkalemia Status: Resolved (8) Hyperlipidemia, Unspecified Status: Chronic (9) Hypertension Status: Chronic (10) Hypertensive emergency Status: Resolved (11) Hypertensive Retinopathy, Left Eye Status: Chronic (12) Proteinuria Status: Resolved (13) Renal insufficiency Status: Resolved (14) Renal insufficiency Status: Resolved (15) Visual disturbance Status: Resolved Current/Historical Medications Scheduled Clonidine Hcl (Catapres), 0.1 MG PO QPM Insulin Glargine (Lantus Solostar), 1 UNITS SC QPM Labetalol (Normodyne), 200 MG PO TID Penicillin V Potassium (Veetids), 500 MG PO QID Rosuvastatin Calcium (Rosuvastatin Calcium), 40 MG PO QPM Sodium Bicarbonate (Sodium Bicarbonate), 650 MG PO BID Allergies Coded Allergies: No Known Allergies (Unverified , NKA, 09/21/16) Vital Signs Date Time Temp Pulse Resp B/P Pulse Ox O2 Delivery O2 Flow Rate FiO2 09/21/16 09:35 86 18 150/111 95 09/21/16 09:01 36.7 85 18 166/109 100 Room Air Departure Information Impression Primary Impression: Tooth pain with chewing Dispostion Home / Self-Care Condition GOOD Prescriptions Penicillin V Potassium (Veetids) 500 Mg Tab 500 MG PO QID, #40 TAB Prov: Sari Mac PA-C 09/21/16 Referrals Carmelita Alejandro M.D. (PCP) Patient Instructions My [facility] Additional Instructions You have been treated in the Emergency Department for Dental Pain. You were prescribed Pen-Vee K to be taken as prescribed. This is an antibiotic. All antibiotics have the potential to cause diarrhea. Stop this medication and contact a medical provider if you were to develop any significant adverse side effects including: wheezing, shortness of breath, passing out, vomiting, or a diffuse rash. Always take antibiotics as directed and COMPLETE the ENTIRE course regardless of the improvement of your symptoms. For pain control, you can use the following diza-diy-jvhzxak medicines (if >12 yo): - Regular strength (325mg/tab) Tylenol (acetaminophen) 2 tabs every 4-6 hours as needed. Do not exceed 12 tablets in a 24 hour period. Avoid taking more than 4 grams (4000 mg) of Tylenol per day. This includes any other sources of acetaminophen you may take on a regular basis. - Regular strength (200 mg/tab) Advil (ibuprofen) 1-2 tabs every 4-6 hours as needed. Do not exceed a dose of 3200 mg per day. Refrain from smoking cigarettes or using chewing tobacco until you have been evaluated by your dentist. Keeping beverages lukewarm and consuming soft foods can decrease your pain. Warm compresses over the affected area may offer some relief. You MUST seek evaluation of your dental pain by a dentist following your visit to the Emergency Department. The Emergency Department is not capable of treating dental issues long-term. You should call your dentist as soon as possible to make an appointment for evaluation of your dental pain. Return to the emergency department if you develop the following symptoms despite treatment course outlined above: fever, intractable pain, increased redness, swelling, or purulent discharge.
[2016-09-21] MEDS ORDERED: PENI-82 PO (09:30)
[2016-09-21 09:35] VITALS: BP 150/111; PULSE 86; O2SAT 95
[2016-12-02] MEDS ORDERED: ROSU40TA18 PO (08:39)
[2016-12-02] MEDS ORDERED: CTP/1 PO (08:39)
[2016-12-02] MEDS ORDERED: INSDGIPEN SC (09:27)
[2016-12-02] MEDS ORDERED: LABE1TAB28 PO (09:49)
== END 2016-09-21 09:36 | disposition home or self-care (01) ==
LOC: C.EDB 08:52 → C.EDA 09:36
DX: K08.89 Other specified disorders of teeth and supporting structures (principal); E11.9 Type 2 diabetes mellitus without complications; F17.200 Nicotine dependence, unspecified, uncomplicated; N18.3 Chronic kidney disease, stage 3 (moderate); E78.5 Hyperlipidemia, unspecified; I12.9 Hypertensive chronic kidney disease with stage 1 through stage 4 chronic kidney disease, or unspecified chronic kidney disease; Z79.4 Long term (current) use of insulin; Z79.899 Other long term (current) drug therapy

== ENCOUNTER → 2016-11-08 | Outpatient (CLI) | payer OTHER ==
[~2016-11-08] MED LIST changes: -AMLO-114 PO; +BUME1TAB PO; +CALC667C4 PO; +CTP/1 PO; -HPRIS5M SQ; -HYDI IV.; +LABE1TAB28 PO; +NVLG SQ; -OXYC-57 PO; +PENI-82 PO; +ROSU40TA18 PO; +SODI650T8 PO; -ZTHM250 OR; -[UNRECOGNIZED DRUG - OTHER]
[2016-11-08 15:23] LABS: BASO % 0.8 %; COMPLETE YES; EOS % 3.6 %; HEMATOCRIT 30.2 % (42-52); IG% 0.2 %; LYMPH % 12.3 %; LYMPH ABS # 1.48 K/uL (1.2-3.4); MEAN CELL VOLUME 89.3 fL (80-100); MEAN CORPUSCULAR HGB CONC 32.5 g/dl (32-36); MEAN PLATELET VOLUME 9.9 fL (7.4-10.4); MONO % 6.8 %; NEUT % 76.3 %; PLATELET COUNT 386 K/uL (130-400); RED BLOOD COUNT 3.38 M/uL (4.7-6.1); WHITE BLOOD COUNT 12.04 K/uL (4.8-10.8)
[2016-11-08 15:35] LABS: PARTIAL THROMBOPLASTIN RATIO 1.1; PROTHROMBIN TIME (PATIENT) 10.6 SECONDS (9.0-12.0)
[2016-11-08 15:52] LABS: BLOOD UREA NITROGEN 80 mg/dl (7-18); BUN/CREATININE RATIO 13.1 (10-20); CALCIUM 8.2 mg/dl (8.5-10.1); CARBON DIOXIDE 20 mmol/L (21-32); CHLORIDE 107 mmol/L (98-107); FERRITIN 353.6 ng/ml (8.0-388.0); GLUCOSE 301 mg/dl (70-99); MAGNESIUM 1.9 mg/dl (1.8-2.4); PHOSPHORUS 6.7 mg/dl (2.5-4.9); POTASSIUM 5.2 mmol/L (3.5-5.1); SODIUM 138 mmol/L (136-145); TOTAL IRON BINDING CAPACITY 178 mcg/dl (250-450)
[2016-11-08 16:06] LABS: BETA-HYDROXYBUTYRATE 1.63 mg/dL (0.2-2.81)
== END | disposition home or self-care (01) ==
LOC: C.LAB1850 13:58
PROVIDERS: ATTEND Internal Medicine Nephrology
DX: N18.5 Chronic kidney disease, stage 5 (principal); D64.9 Anemia, unspecified

== ENCOUNTER 2016-12-02 18:21 | Emergency (ER) | payer OTHER ==
[~2016-12-02] VITALS: Ht 180.3 cm; Wt 79.8 kg
[~2016-12-02 18:21] MED LIST changes: -BUME1TAB PO; -CALC667C4 PO; -NVLG SQ; -SODI650T8 PO
[2016-12-02 18:30] VITALS: BP 136/81; PULSE 87; TEMP 36.5; O2SAT 94; Ht 180.3 cm; Wt 79.8 kg
--- NOTE | 2016-12-02 18:47 | EMERGENCY ROOM VISIT NOTE ---
History Report prepared by Paulo: Dora Horton Under the Supervision of: Dr. Alen Foss D.O. First contact with patient: 18:37 Chief Complaint: INFECTION Stated Complaint: PAIN,MAYBE INFECTION, SURGICAL SITE History of Present Illness The patient is a 31 year old male who presents to the Emergency Room with complaints of persistent right arm pain that began 8 days ago. The patient states that he had a a dialysis fistula placed in his right arm last Tuesday. He complains of swelling and right lower arm and wrist pain where he had the fistula placed last week. He notes that he is concerned that it may be infected. The patient denies any drainage or redness. He reports a history of diabetes and rates his pain as a 7/10 in severity. Source of History: patient Onset: 8 days ago Position: arm (right) Symptom Intensity: 7/10 Timing: constant Note: Pt complains of swelling and wrist pain. He denies any drainage or redness. Review of Systems See HPI for pertinent positives & negatives. A total of 10 systems reviewed and were otherwise negative. Past Medical & Surgical Medical Problems: (1) Acute on chronic renal failure (2) Bilateral leg edema (3) Chronic Kidney Disease, Stage 3 (Moderate) (4) Dehydration (5) Diabetes (6) Elevated IOP (7) Hyperglycemia (8) Hyperkalemia (9) Hyperlipidemia, Unspecified (10) Hypertension (11) Hypertensive emergency (12) Hypertensive Retinopathy, Left Eye (13) Proteinuria (14) Renal insufficiency (15) Renal insufficiency (16) Visual disturbance Family History Diabetes mellitus FH: kidney disease Heart disease Hypertension Kidney stones Social History Smoking Status: Current Every Day Smoker Alcohol Use: none Marital Status: single Housing Status: lives with family Occupation Status: unemployed Current/Historical Medications Scheduled Calcium Acetate (Phoslo 667 Mg), 1 CAP PO WM Clonidine Hcl (Catapres), 0.1 MG PO QPM Insulin Aspart (Novolog), SQ TIDM Insulin Glargine (Lantus Solostar), 15 UNITS SC QPM Labetalol (Normodyne), 200 MG PO TID Rosuvastatin Calcium (Rosuvastatin Calcium), 40 MG PO QPM Sodium Bicarbonate (Sodium Bicarbonate), 650 MG PO BID Allergies Coded Allergies: No Known Allergies (Unverified , NKA, 09/21/16) Physical Exam Vital Signs Date Time Temp Pulse Resp B/P (MAP) Pulse Ox O2 Delivery O2 Flow Rate FiO2 12/02/16 18:30 36.5 87 18 136/81 94 Room Air Physical Exam CONSTITUTIONAL/VITAL SIGNS: Reviewed / noted above. GENERAL: Non-toxic in appearance. INTEGUMENTARY: Warm, dry, and [place]. HEAD: Normocephalic. EYES: without scleral icterus or trauma. ENT/OROPHARYNX: clear and moist. LYMPHADENOPATHY/NECK: Is supple without lymphadenopathy or meningismus. RESPIRATORY: Lungs clear and equal. CARDIOVASCULAR: Regular rate and rhythm. GI/ABDOMEN: Soft and nontender. No organomegaly or pulsatile mass. No rebound or guarding. Normal bowel sounds. EXTREMITIES: Warm and well perfused. Some mild erythema overlying the incision on the right wrist overlying the fistula. No discharge or obvious infection. Good thrill. No distal edema or ecchymosis. BACK: No CVA tenderness. NEUROLOGICAL: Intact without focal deficits. PSYCHIATRIC: normal affect. MUSCULOSKELETAL: Normally developed with good muscle tone. Medical Decision & Procedures ED Course 1839: Previous medical records were reviewed. The patient was evaluated in room C10. A complete history and physical examination was performed. 185: On reevaluation, the patient is doing well. I discussed the results and findings with the patient. He verbalized agreement of the treatment plan. The patient was discharged home. Medical Decision Differential includes normal postoperative changes versus infection. Medication Reconciliation: I attest that I have personally reviewed the patient' s current medication list. Blood pressure Screening: Patient was found to have normal blood pressure on screening and does not require follow-up. This is a 31-year-old male who presents to the ED with a chief complaint of concerns about possible infection to the right wrist area. The patient had a dialysis fistula performed 8 days ago by his surgeon at [facility]. The patient took the bandage off today and noticed a little redness and came in For evaluation of possible infection. There is been no discharge. He has had discomfort in the wrist since the operation but no cerumen changes in his pain. The patient has no additional complaints. He has not had any fevers. Exam reveals some mild erythema immediately next to the incision site. There is no abnormal discharge or swelling. There is no additional redness. This likely redness related to the healing process. He does not have any red streaks up his arm. He has no significant tenderness. The exam reveals a normal thrill. The patient was examined. He has not felt to have infection at this time. He was told to watch the redness in the area to confirm that it is not becoming more red or swollen. He will follow-up with his PCP should he develop any symptoms. He is felt to be stable for discharge. Impression Primary Impression: Post-op pain Scribe Attestation The scribe's documentation has been prepared under my direction and personally reviewed by me in its entirety. I confirm that the note above accurately reflects all work, treatment, procedures, and medical decision making performed by me. Departure Information Dispostion Home / Self-Care Referrals No Doctor, Assigned (PCP) Forms HOME CARE DOCUMENTATION FORM, IMPORTANT VISIT INFORMATION, WORK / SCHOOL INSTRUCTIONS Patient Instructions My [facility] Additional Instructions Watch for additional redness. Return for any concerns or worsening. Follow-up with your doctor for recheck in one to 5 days.
[2016-12-02] MEDS ORDERED: CALC667C4 PO (18:57)
[2016-12-02] MEDS ORDERED: NVLG SQ (18:57)
[2016-12-02] MEDS ORDERED: SODI650T8 PO (18:57)
== END 2016-12-02 18:55 | disposition home or self-care (01) ==
LOC: C.EDB 18:23 → C.EDC 18:55
DX: G89.18 Other acute postprocedural pain (principal); Z98.890 Other specified postprocedural states; N18.3 Chronic kidney disease, stage 3 (moderate); I12.9 Hypertensive chronic kidney disease with stage 1 through stage 4 chronic kidney disease, or unspecified chronic kidney disease; E11.319 Type 2 diabetes mellitus with unspecified diabetic retinopathy without macular edema; E78.5 Hyperlipidemia, unspecified; Z83.3 Family history of diabetes mellitus; Z82.49 Family history of ischemic heart disease and other diseases of the circulatory system; Z84.1 Family history of disorders of kidney and ureter; F17.210 Nicotine dependence, cigarettes, uncomplicated; Z79.4 Long term (current) use of insulin

== ENCOUNTER 2017-01-20 05:59 | Emergency (ER) | payer OTHER ==
[~2017-01-20] VITALS: Ht 180.3 cm; Wt 69.9 kg
[~2017-01-20 05:59] MED LIST changes: +CALC667C4 PO; +NVLG SQ; -PENI-82 PO; +SODI650T8 PO; -SODI650T9 PO
[2017-01-20 06:02] VITALS: BP 187/101; PULSE 99; TEMP 36.5; O2SAT 97; Ht 180.3 cm; Wt 69.9 kg
[2017-01-20] MEDS ORDERED: PENI-82 PO (06:14)
[2017-01-20] MEDS ORDERED: PENICILLIN HOME PACK 500MG (4 DOSES)BTL PO ONE (06:15)
[2017-01-20] MEDS ORDERED: BUME1TAB PO (06:24)
--- NOTE | 2017-01-20 06:28 | EMERGENCY ROOM VISIT NOTE ---
ED Visit Note First contact with patient: 06:07 CHIEF COMPLAINT: Toothache HISTORY OF PRESENT ILLNESS: This 31-year-old male patient presented to the emergency department with a progressive toothache for past 2 days. The patient believes it is coming from a left lower molar. The pain is now steady and severe and radiates to the face. The patient does not have a dentist appointment set up. This is the patient's fourth visit in 8 months to the emergency department for dental pain. He does smoke. They rate their pain a 8/ 10 and the ibuprofen and Tylenol they have been taking has not relieved the pain. Denies facial swelling or fever. The patient denies any discharge from the mouth. REVIEW OF SYSTEMS: A 6 system review of systems was completed with positives and pertinent negatives listed in the HPI. ALLERGIES: No known allergies MEDICATIONS: See EMR PMH: See EMR SOCIAL HISTORY: Lives locally PHYSICAL EXAM: Vitals are noted on the nurse's note and reviewed by myself. Vital signs stable. GENERAL: White male, in no acute distress, nondiaphoretic, well-developed well- nourished. Mouth: The left lower molar #17 tooth is very carious and the gum is swollen and tender around it, without any discharge or signs of an abscess. The remainder of the pharynx and tonsils are without erythema, edema, or exudate. The airway is patent. There is no facial swelling, cervical or submandibular lymphadenopathy. The patient appears uncomfortable and in pain. The patient has overall poor dental hygiene. EARS: External auditory canals clear, tympanic membranes pearly negron without erythema or effusion bilaterally. HEART: Regular rate and rhythm without murmur gallop or rub LUNG: Clear to auscultation bilateral ED COURSE: Physical exam and history were performed. Nursing notes and EMR were reviewed. The patient appears to have left-sided lower dental pain for the past 2 days. He does have poor dentition and needs to follow with a dentist. I do not feel comfortable providing him narcotics for pain control. He may use [id number] Advil and Tylenol. I will give him a course of Pen- Vee K. The patient was invited back to the emergency department with any new, worsening, or concerning symptoms. Problem List Medical Problems: (1) Bilateral leg edema Status: Resolved (2) Chronic Kidney Disease, Stage 3 (Moderate) Status: Chronic (3) Dehydration Status: Resolved (4) Diabetes Status: Chronic (5) Elevated IOP Status: Resolved (6) Hyperglycemia Status: Resolved (7) Hyperkalemia Status: Resolved (8) Hyperlipidemia, Unspecified Status: Chronic (9) Hypertension Status: Chronic (10) Hypertensive emergency Status: Resolved (11) Hypertensive Retinopathy, Left Eye Status: Chronic (12) Proteinuria Status: Resolved (13) Renal insufficiency Status: Resolved (14) Renal insufficiency Status: Resolved (15) Visual disturbance Status: Resolved Current/Historical Medications Scheduled Bumetanide (Bumex), 2 MG PO BID Calcium Acetate (Phoslo 667 Mg), 1 CAP PO WM Clonidine Hcl (Catapres), 0.1 MG PO QPM Insulin Aspart (Novolog), SQ TIDM Insulin Glargine (Lantus Solostar), 15 UNITS SC QPM Labetalol (Normodyne), 200 MG PO TID Penicillin V Potassium (Veetids), 500 MG PO QID Rosuvastatin Calcium (Rosuvastatin Calcium), 40 MG PO QPM Sodium Bicarbonate (Sodium Bicarbonate), 650 MG PO BID Allergies Coded Allergies: No Known Allergies (Unverified , NKA, 01/20/17) Vital Signs Date Time Temp Pulse Resp B/P (MAP) Pulse Ox O2 Delivery O2 Flow Rate FiO2 01/20/17 06:02 36.5 99 18 187/101 97 Room Air Departure Information Impression Primary Impression: Pain, dental Dispostion Home / Self-Care Condition GOOD Prescriptions Penicillin V Potassium (Veetids) 500 Mg Tab 500 MG PO QID, #40 TAB Prov: Jeovany Ivan PA-C 01/20/17 Forms HOME CARE DOCUMENTATION FORM, IMPORTANT VISIT INFORMATION Patient Instructions My [facility] Additional Instructions You were seen and evaluated today on an emergency basis only. This is not a substitute for, or an effort to provide, complete comprehensive medical care. It is not possible to recognize and treat all injuries or illnesses in a single emergency department visit. For this reason it is recommended that you followup with a dentist as soon as possible for definitive care. Take Pen-Vee K 500 mg 4 times daily for the next 10 days. For baseline pain relief you may alternate ibuprofen and acetaminophen every 4 hours for pain control. Take 600 mg ibuprofen (Advil) and then 4 hours later take 1000 mg acetaminophen (Tylenol). Do not take more than 3000 mg acetaminophen in a single day. You are welcome to return to the emergency department anytime with new, worsening, or concerning symptoms.
== END 2017-01-20 06:24 | disposition home or self-care (01) ==
LOC: C.EDB 06:00
DX: K08.89 Other specified disorders of teeth and supporting structures (principal); F17.210 Nicotine dependence, cigarettes, uncomplicated; I12.9 Hypertensive chronic kidney disease with stage 1 through stage 4 chronic kidney disease, or unspecified chronic kidney disease; N18.3 Chronic kidney disease, stage 3 (moderate); E11.9 Type 2 diabetes mellitus without complications; H35.039 Hypertensive retinopathy, unspecified eye; Z79.899 Other long term (current) drug therapy; Z79.4 Long term (current) use of insulin

== ENCOUNTER → 2017-07-28 | Day surgery (SDC) | payer OTHER ==
[~2017-07-28] VITALS: Ht 180.3 cm; Wt 70.0 kg
[~2017-07-28] MED LIST changes: +ACETAMINOPHEN 325 MG TAB PO PRN; +ATROPINE SULFATE 0.1 MG/ML 5ML SYR IV PRN; +BUME1TAB PO; +DC ALL ANTICOAGULANTS SCH; +ERGO500037 PO; +FENTANYL CITRATE INJ 50 MCG/1 ML 2 ML VIAL ONE; +ISR/5 PO; +LOSA1TAB PO; +METO25TA3 PO; +MIDAZOLAM HCL 1 MG/ML 2ML VIAL ONE; +ONDANSETRON INJ 2 MG/ML 2 ML VIAL IV PRN; -ROSU40TA18 PO; +ROSU40TA28 PO; +SODIUM CHLORIDE 0.9% 1000ML 1,000 ML IV SCH; +SODIUM CHLORIDE 0.9% 1000ML 250 ML IV PRN; +[UNRECOGNIZED DRUG - CODE] PO
[2017-07-28 07:25] VITALS: Ht 180.3 cm; Wt 70.0 kg
--- NOTE | 2017-07-28 08:42 | History & Physical Bridge Note ---
H&P Re-Evaluation Bridge Note: I have examined the patient, reviewed the History & Physical and in the interval since the performance of the History & Physical I have noted the following changes of clinical significance: No changes noted
--- NOTE | 2017-07-28 09:44 | Cardiac Catheterization ---
Procedure Note Procedure Date Jul 28, 2017. Pre-Procedure Diagnosis Cardiomyopathy AUC Score 9 Post-Procedure Diagnosis Severe CAD Procedure(s) Performed Coronary Angiography, Left Heart Cath, LV Angiography Instructional Facilitator Dr. Carballo Gore Inserter(s) None Estimated Blood Loss None Medication(s) Versed, Lidocaine 1% Summary of Findings See dictated report Hemodynamics Rest Ao: 148/83 Final Ao: 155/78 LV: 155/2 Recommendations Medical therapy and/or Counseling Specimens None Radiation Exposure (mGy) 881 Contrast (mls) 100 Fluids (cc crystalloids) 15 Disposition Train Brake Operator Holding/Recovery ACC Data Cardiac Status Clinical evaluation leading to the procedure CAD Presntation: No Sxs, no angina Heart Failure: Yes, NYHA Class: CCS II Cardiogenic Shock w/in 24Hrs: No Cardiac Arrest w/in 24Hrs: No Imaging studies past 6 months: Yes Stress studies past 6 months: No Coronary Anatomy Dominant: Right (See dictated report) Left Ventricular Angiography EF (%): 55 Wall Motion: Anterior (Hypokinetic) Mitral Regurgitation: None Aortography Aortic Regurgitation: None Diagnostic Physician's Name: Asher Carballo, DO Status: Elective Closure Device Percutaneous Entry Location: Femoral Closure Device: Mynx Recommendations: Medical therapy and/or Counseling
--- NOTE | 2017-07-28 09:49 | Discharge Instructions ---
Discharge Instructions Procedure Procedure Date: Jul 28, 2017. Reason for Visit: Abnormal Echo *Dr Carballo Doing*. Discharge Discharge Date: Jul 28, 2017. Discharge Diagnosis: CAD Last Recorded Wt (Kilograms): 70 Anesthesia Post Anesthesia Instructions: If you have had General Anesthesia or IV Sedation: * Do not drive today. * Resume driving when surgeon permits. * Do not make important decisions or sign legal documents today. * Call surgeon for: 1. Temperature elevations greater than 101 degrees F. 2. Uncontrollable pain. 3. Excessive bleeding. 4. Persistent nausea and vomiting. 5. Medication intolerance (nausea, vomiting or rash). * For nausea and vomiting use only clear liquids such as: tea, soda, bouillon until nausea subsides, then gradually increase diet as tolerated. * If you have any concerns or questions, call your surgeon's office. If physician is unavailable and it is an emergency, call 911 or go to the nearest emergency room. Instructions Activity Recommendations: limitations Recommended Home Diet: resume previous diet Allergies: Coded Allergies: No Known Allergies (Unverified , NKA, 01/20/17) Provider Instructions ACTIVITY RECOMMENDATIONS: It is common to feel weak and fatigue for a few days. * Do not drive or operate any motorized equipment for the next three days. * Limit stair usage (2 or 3 trips a day only) for the next three days. * Do not lift anything heavier than 10 pounds for the next three days. * Do not engage in vigorous exercise or any sports for the next five days. * You may shower the day after your procedure, but do not immerse the area for three days. Cleanse the site gently with soap and water. SPECIAL CARE INSTRUCTIONS: * You may replace the pressure dressing or band-aid the morning after the procedure. * After your procedure, it is normal to have a small bruise or small lump at the site. Examine your site daily for any change in the bruise or lump, redness, swelling, drainage or numbness. Notify your doctor if any change. BLEEDING: * If there is a small amount of bleeding at the site, lie down and apply firm pressure with a clean cloth for ten minutes. When the bleeding stops, lie quietly keeping the procedure limb straight for six hours. Notify your doctor as soon as possible. * If the bleeding does not stop after ten minutes or if there is a large amount of bleeding or spurting, call 911 immediately. Continue to lie down and hold firm pressure until help arrives. SKIN IRRITATION: * You may experience some redness and/or swelling in the area where radiation was administered. If any skin irritation occurs, please contact your family physician. FOLLOW UP VISIT: Keep any scheduled doctor appointments. Follow Up Greg Jang Recommendations: Call your doctor if: * Temperature above 101 degrees * Pain not relieved by pain medicine ordered * There is increased drainage or redness from any incision * You have any unanswered questions or concerns. Your Doctors Instructions noted above were prepared by provider Asher Carballo. Patient Signature Section: Patient Instructions Signature Page Km [place] Patient (or Guardian) Signature/Date: I have read and understand the instructions given to me by my caregivers. Caregiver/RN/Doctor Signature/Date: The above-named patient and/or guardian has received patient instructions on this date. + Original Patient Signature Page (only) stays with chart. Please make copy for patient.
--- NOTE | 2017-07-28 10:00 | CARDIAC CATH REPORT ---
PROCEDURE: 1. Left heart catheterization. 2. Coronary angiography. 3. Left ventriculography. HISTORY OF PRESENT ILLNESS: The patient is a 32-year-old male who has a history of type 1 diabetes who is on hemodialysis due to end-stage renal failure. He was sent for cardiac clearance regarding renal transplant. He was scheduled to have a dobutamine stress echocardiogram; however, upon presentation, he was found to have what appears to be an ischemic cardiomyopathy. He has been referred for cardiac catheterization to further define his coronary anatomy before placing him on a transplant list. PROCEDURE SUMMARY: The patient was seen and evaluated in the holding area of the lift slab operator. After informed consent was obtained, he was prepped and draped in the usual manner for transfemoral approach. Preformed 5-Divehi diagnostic catheters were utilized for coronary angiograms. A 5-Divehi pigtail catheter was utilized for left ventriculogram. Following the procedure, the patient had the arterial site closed with a Mynx device and then was returned to the holding area of the lift slab operator in stable condition. CORONARY ANGIOGRAPHY: Selective injections of the left coronary artery reveal a short left main trunk. The left circumflex artery is diffusely diseased with mild to moderate nonobstructive coronary artery disease. The LAD is diffusely diseased in its proximal and mid segment with a 100% occlusion after the takeoff of a very large first septal fashion marketer. The LAD distally fills from left to left as well as right to left collaterals. Selective injections of the right coronary artery reveal to be diffusely diseased. In the mid segment there is moderate 50-70% stenoses with the remainder of the artery being nonobstructive. The right coronary artery is dominant. LEFT VENTRICULOGRAM: The left ventricle is of normal size. There is mild hypokinesis of the distal anterior myocardium with the estimated left ventricular ejection fraction being above 50%. The LVEDP is 2. The mitral valve is competent. The aortic root and ascending aorta have normal morphology. SUMMARY: The patient has 3-vessel coronary artery disease. The LAD is totally occluded after the takeoff of a very large first septal fashion marketer, but fills with left to right and right to left collaterals. The left circumflex artery has nonobstructive disease. The right coronary artery has a 50-70% stenosis in its mid segment with the remainder of the artery having diffuse nonobstructive disease. LV function is relatively preserved with hypokinesis of the distal anterior myocardium. RECOMMENDATIONS: At present, we will continue to treat the patient medically. He is not symptomatic with his coronary artery disease. For transplant purposes however, he may have to consider revascularization if it is feasible and we I certainly will discuss this with my colleagues.
--- NOTE | 2017-07-28 10:19 | Pre Sedation Assessment ---
Pre Sedation Assessment General Date of Sedation: Jul 28, 2017. 9:03 AM Vital Signs Past 12 Hours Date Time Temp Pulse Resp B/P (MAP) Pulse Ox O2 Delivery O2 Flow Rate FiO2 07/28/17 10:15 81 18 150/85 (106) 97 Room Air 07/28/17 10:00 81 18 141/85 (103) 96 Room Air 07/28/17 09:45 78 18 145/84 (104) 98 Room Air 07/28/17 09:35 Room Air 07/28/17 09:30 81 16 138/88 (105) 97 Room Air 07/28/17 09:25 Room Air 07/28/17 09:20 80 16 132/86 (101) 95 Room Air Review Cardiovascular: regular rate, rhythm Lungs: lungs clear Pre-Sedation Airway Assessment Smoking Status: Current Every Day Smoker Hx of Sleep Apnea: No Hx of difficult intubation: No Short Thick Neck: No Thyro-mental Distance: > 3 Finger Breadths Oral Cavity: WNL Mallampati Classification: Class II ASA Classification: Class IV NPO Status Date of Last Intake of Fluids: Jul 27, 2017 Time of Last Intake of Fluids: 2299 Date of Last Intake of Solids: Jul 27, 2017 Time of Last Intake of Solids: 230 Procedure Planning Contraindications for Sedation: None Current Medications Reviewed: Yes Notes The planned sedation has been discussed with the patient. Informed Consent was obtained. I have identified the patient, determined the appropriateness of sedation and have assessed the patient immediately prior to the procedure. All medicine(s) and interventions are by my order.
--- NOTE | 2017-07-28 10:20 | Post Sedation Assessment ---
Post Sedation Assessment General Date of Sedation Jul 28, 2017. 9:20 AM Vital Signs: Vital Signs Past 12 Hours Date Time Temp Pulse Resp B/P (MAP) Pulse Ox O2 Delivery O2 Flow Rate FiO2 07/28/17 10:15 81 18 150/85 (106) 97 Room Air 07/28/17 10:00 81 18 141/85 (103) 96 Room Air 07/28/17 09:45 78 18 145/84 (104) 98 Room Air 07/28/17 09:35 Room Air 07/28/17 09:30 81 16 138/88 (105) 97 Room Air 07/28/17 09:25 Room Air 07/28/17 09:20 80 16 132/86 (101) 95 Room Air Post Procedure Recovery Score Activity: (2) Moves 4 extremities * Respiration: (2) Deep breath/cough Circulation: (2) +/-20% PreAnes Value Consciousness: (2) Fully Awake Oxygen Saturation: (2) > 92% On Room Air Post Anesthesia Score: 10 Discharge Sedation Level of Care: Fast Track Phase II Post Sedation Plan On clinical assessment, the patient appears to have tolerated the sedation without complications. Patient is recovering as anticipated. Patient will continue to be monitored by nursing and may be discharged when sedation discharge criteria are met per below protocol. Upon Completions of procedure and additional 15 minutes continue every 5 minute vital signs and the P.A.R. score; then discharge to a Phase I or Fast Track to Phase II per the following guidelines: * Discharge Patient to appropriate Phase II area if PAR is 8 or greater or return to pre- procedure baseline. The post - procedure orders will be as directed. * If PAR score is less than 8 or not return to pre-procedure baseline then patient will follow Phase I monitoring till PAR is reached for Phase II. The Phase I may be done in procedure room or may call to secure a Phase I area. * If naloxone or flumazenil are used for reversal, hold in Phase I for an additional 60 -120 minutes before discharge to Phase II. Please call the Sedation Physician to re-evaluate and complete post-note for discharge to Phase II area. Do NOT discharge from procedure sedation or Phase 1 until post- sedation evaluation note is complete by procedure /sedation MD Sedation Discharge Instructions to be given to the patient at discharge to home.
[2017-07-28 13:00] VITALS: BP 122/74; PULSE 78; O2SAT 96
== END | disposition home or self-care (01) ==
LOC: C.CATH 07:11
PROVIDERS: ATTEND Internal Medicine Interventional Cardiology
DX: I42.9 Cardiomyopathy, unspecified (principal); I25.10 Atherosclerotic heart disease of native coronary artery without angina pectoris; E78.5 Hyperlipidemia, unspecified; N18.6 End stage renal disease; E11.22 Type 2 diabetes mellitus with diabetic chronic kidney disease; I12.0 Hypertensive chronic kidney disease with stage 5 chronic kidney disease or end stage renal disease; E10.341 Type 1 diabetes mellitus with severe nonproliferative diabetic retinopathy with macular edema; E55.9 Vitamin D deficiency, unspecified; Z82.49 Family history of ischemic heart disease and other diseases of the circulatory system; F17.200 Nicotine dependence, unspecified, uncomplicated; Z79.899 Other long term (current) drug therapy; Z79.4 Long term (current) use of insulin

== ENCOUNTER 2017-08-03 14:39 | Inpatient (IN) | payer OTHER ==
[~2017-08-03] VITALS: Ht 180.3 cm; Wt 65.3 kg
[~2017-08-03 14:39] MED LIST changes: -ACETAMINOPHEN 325 MG TAB PO PRN; -ATROPINE SULFATE 0.1 MG/ML 5ML SYR IV PRN; -DC ALL ANTICOAGULANTS SCH; -FENTANYL CITRATE INJ 50 MCG/1 ML 2 ML VIAL ONE; -LABE1TAB28 PO; -MIDAZOLAM HCL 1 MG/ML 2ML VIAL ONE; -NVLG SQ; -ONDANSETRON INJ 2 MG/ML 2 ML VIAL IV PRN; -SODI650T8 PO; -SODIUM CHLORIDE 0.9% 1000ML 1,000 ML IV SCH; -SODIUM CHLORIDE 0.9% 1000ML 250 ML IV PRN
[2017-08-03] MEDS ORDERED: ASPIRIN 81 MG CHEW PO STA (15:20)
[2017-08-03 15:30] LABS: BASO % 0.6 %; BASO ABS # 0.09 K/uL (0-0.2); EOS % 5.3 %; EOS ABS # 0.76 K/uL (0-0.5); HEMATOCRIT 36.2 % (42-52); HEMOGLOBIN 12.3 g/dL (14.0-18.0); IG# 0.04 K/uL (0.00-0.02); LYMPH % 10.2 %; LYMPH ABS # 1.46 K/uL (1.2-3.4); MEAN CELL VOLUME 89.4 fL (80-100); MEAN CORPUSCULAR HEMOGLOBIN 30.4 pg (25-34); NEUT % 76.6 %; NEUT ABS # 11.02 K/uL (1.4-6.5); PLATELET COUNT 371 K/uL (130-400); RED CELL DISTRIBUTION WIDTH CV 13.3 % (11.5-14.5); RED CELL DISTRIBUTION WIDTH SD 43.4 fL (36.4-46.3); WHITE BLOOD COUNT 14.37 K/uL (4.8-10.8)
--- NOTE | 2017-08-03 15:31 | DIAGNOSTIC IMAGING REPORT ---
CHEST ONE VIEW PORTABLE CLINICAL HISTORY: Atypical chest pain COMPARISON STUDY: 08/21/2016 FINDINGS: The heart is mildly enlarged. There are small bilateral pleural effusions with associated bibasal airspace opacities. The upper lung zones appear clear. There is no overt failure.[ IMPRESSION: Small bilateral pleural effusions with associated bibasal airspace opacities Electronically signed by: Jack Hernandez M.D. 08/03/2017 3:30 PM Dictated Date/Time: 08/03/2017 3:29 PM
[2017-08-03] MEDS: NITROGLYCERIN 0.4 MG SL PER TAB CHARGE SL PRN ×2 (15:41→16:53)
[2017-08-03] MEDS ORDERED: OPTIRAY 320 IV PRN (15:45)
[2017-08-03 15:55] LABS: CREATININE 7.65 mg/dl (0.60-1.40); POTASSIUM 3.6 mmol/L (3.5-5.1)
[2017-08-03 15:57] LABS: ISTAT IONIZED CALCIUM 1.1 mmol/l (1.12-1.32); ISTAT POTASSIUM 3.6 mEq/L (3.3-5.0)
[2017-08-03] MEDS ORDERED: CALC667C4 PO (16:16)
--- NOTE | 2017-08-03 16:26 | DIAGNOSTIC IMAGING REPORT ---
CT ANGIOGRAM OF THE CHEST CLINICAL HISTORY: Pleuritic chest pain. COMPARISON STUDY: Chest x-ray dated 08/03/2017. TECHNIQUE: Following the IV administration of 101 cc of Optiray 320, CT angiogram of the chest was performed from the upper abdomen to the thoracic inlet utilizing the pulmonary embolus protocol. Images are reviewed in the axial, sagittal, and coronal planes. 3-D MIPS images are created and assessed. IV contrast was administered without complication. The patient is a dialysis patient with elevated serum creatinine. The patient was scanned emergently as deemed medically necessary by the referring clinician. A dose lowering technique was utilized adhering to the principles of ALARA. CT DOSE: 370.19 mGycm FINDINGS: Thyroid: Imaged portions of the thyroid gland are normal in size and attenuation. Thoracic aorta: The thoracic aorta is normal in caliber and demonstrates bovine variant arch anatomy. No dissection is seen. Pulmonary vasculature: The pulmonary trunk is dilated, measuring 3.0 cm in diameter. This suggests pulmonary artery hypertension. There are no filling defects identified in main, lobar, or segmental pulmonary branches to suggest pulmonary embolus. Heart: The heart is enlarged and without pericardial effusion. The coronary arteries are densely calcified. Lungs and pleural spaces: Evaluation of the lung parenchyma is modestly degraded by motion artifact. There are large right and [id number] left pleural effusions with associated consolidation. Fluid is noted along the right major fissure. Mild emphysematous change is suspected. The trachea and central airways are patent. Mediastinum: There is no mediastinal lymphadenopathy. Marina: Clear. Axillae: There is no axillary lymphadenopathy. Upper abdomen: Partially visualized upper abdominal viscera is within normal limits. Skeletal structures: No lytic or blastic bony lesions are seen. IMPRESSION: 1. There is no evidence of pulmonary embolus in the main, lobar, or segmental pulmonary arteries. 2. Cardiomegaly. 3. Large right and small to moderate left pleural effusions with associated bibasilar consolidation. This likely represents atelectasis. Correlate clinically for evidence of superimposed pneumonia. 4. Additional findings as above. Electronically signed by: Wang Dickens M.D. 08/03/2017 4:25 PM Dictated Date/Time: 08/03/2017 4:21 PM
[2017-08-03] MEDS ORDERED: INSULIN HUMAN REGULAR PER UNIT 7 UNITS in SYRINGE 0 ML IV STA (18:12)
[2017-08-03] MEDS ORDERED: INSULIN HUMAN REGULAR PER UNIT 7 UNITS in SYRINGE 7 ML IV STA (18:13)
[2017-08-03] MEDS ORDERED: POLYETHYLENE (MIRALAX) 17 GM PACK PO PRN (18:15)
[2017-08-03] MEDS ORDERED: NITROGLYCERIN 0.4 MG SL PER TAB CHARGE SL PRN (18:15)
[2017-08-03] MEDS ORDERED: ACETAMINOPHEN 325 MG TAB PO PRN (18:15)
[2017-08-03] MEDS ORDERED: SEVERE STRESS LEVEL ONE (18:45)
[2017-08-03] MEDS ORDERED: [UNRECOGNIZED DRUG - REMARK] ONE (18:45)
[2017-08-03] MEDS ORDERED: NVLG SQ (18:57)
[2017-08-03] MEDS ORDERED: PHARMACY GLYCEMIC MGMT CONSULT PRN (19:30)
[2017-08-03] MEDS ORDERED: [UNRECOGNIZED DRUG - REMARK] ONE (19:45)
[2017-08-03] MEDS ORDERED: PENDING D5 1/2NS+20mEq KCL IVF SCH (19:45)
[2017-08-03 19:54] LABS: PHOSPHORUS 5.7 mg/dl (2.5-4.9)
[2017-08-03 20:00] VITALS: BP 151/89; PULSE 90; TEMP 36.7; O2SAT 96
[2017-08-03] MEDS ORDERED: CEFTRIAXONE SOD INJ 1 GM in DEXTROSE 5% ADD-VANTAGE 50ML 50 ML IV SCH (20:00)
[2017-08-03] MEDS ORDERED: D5W AND 1/2NSS + 20MEQ KCL 1000 ML IV SCH (20:15)
[2017-08-03] MEDS ORDERED: INSULIN HUMAN REGULAR IV BOLUS 2.5 UNIT in SYRINGE 0 ML IV ONE (20:15)
--- NOTE | 2017-08-03 20:21 | History and Physical ---
History & Physical Date & Time of Service: Aug 03, 2017 at 19:12 Chief Complaint: Chest Pain Primary Care Physician: Merna Zambrano M.D. (MEDICAL) History of Present Illness Source: patient, clinic records, hospital records Pt is 32 y/o M with PMH DM I, HTN, dyslipidemia, ESRD on HD on MWF, cardiomyopathy, CAD presented to ER with c/o CP. Pt states this morning woke up around 0600 with central chest pressure. Pain is sharp with cough and deep inspiration. He states yesterday ate couple hamburgers from [employer] and later that evening had heartburn. No prior treatment. States yesterday had non- productive cough, and reports seems improved today. Denies injury to chest or heavy lifting. Reports chronic exertional dyspnea, denies any changes or worsening. Intermittent orthopnea, pt states hasn't been problem for "awhile". Pt had cardiac cath by Dr Carballo on 07/28/17 with LAD 100% occlusion, RCA 50-70% stenosis, LV function preserved with hypokinesis of distal anterior myocardium. Plan was to continue to treat medically at that time. Hx echo 84: EF: 20- 24%, apical inferior & apical septum are akinetic. Pt follows with Dr Khan - nephrology [facility] [place] Pt did not go to dialysis today. Pt is non-compliant with his insulin. He thinks checked BS yesterday and was 280. Hasn't used his NovoLog today, thinks used it yesterday. He states he used Lantus last evening. Denies fever/chills, diaphoresis, N/V/D/C, BERRY, dizziness, syncope, vision changes, neck pain, palpitations, hemoptysis, sore throat, choking, otalgia, rhinorrhea, abdominal pain, paresthesias, weakness, extremity edema. In ER vitals stable, afebrile. WBC: 14. Gluc: 325. Troponin: 0.183, beta- hydroxybutyric acid: 3.5, anion gap: 12. he had CTA chest negative for PE, bilateral pleural effusions, bibasilar consolidation -likely atelectasis vs superimposed pneumonia. He was given ASA, nitro x 2. Pt feels helped decrease CP. States now only has pain with palpation or deep inspiration. Past Medical/Surgical History Medical Problems: (1) Bilateral leg edema Status: Resolved (2) Broken tooth Status: Resolved (3) Cardiomyopathy Status: Chronic (4) Dehydration Status: Resolved (5) Dental caries Status: Resolved (6) Diabetes Status: Chronic (7) Dyslipidemia Status: Chronic (8) Elevated IOP Status: Resolved (9) ESRD on hemodialysis Status: Chronic (10) Hyperglycemia Status: Resolved (11) Hyperkalemia Status: Resolved (12) Hypertension Status: Chronic (13) Hypertensive emergency Status: Resolved (14) Hypertensive Retinopathy, Left Eye Status: Chronic (15) Odontalgia Status: Resolved (16) Pain, dental Status: Resolved (17) Post-op pain Status: Resolved (18) Proteinuria Status: Resolved (19) Renal insufficiency Status: Resolved (20) Tooth pain with chewing Status: Resolved (21) Visual disturbance Status: Resolved Surgical Problems: (1) Fistula Permanent Comment: AV fistulogram stent and peripheral angioplasty - 03/25/17- [facility] Status: Resolved Family History Diabetes mellitus FH: kidney disease Heart disease Hypertension Kidney stones Social History Smoking Status: Current Every Day Smoker (1ppd x 20 years) Smokeless Tobacco Use: No Alcohol Use: none Drug Use: none Marital Status: single Occupational Status: unemployed Multi-Drug Resistant Organisms History of MDRO: No Allergies Coded Allergies: No Known Allergies (Unverified , NKA, 01/20/17) Home Medications Scheduled Bumetanide (Bumex), 2 MG PO DAILY Calcium Acetate (Phoslo 667 Mg), 1 CAP PO TIDM Clonidine Hcl (Catapres), 0.1 MG PO QPM Ergocalciferol (Vitamin D 48196 Unit), 1 CAP PO UD Glucose-Vitamin C-Vitamin D (Trueplus Glucose), 1 TAB PO PRN Insulin Aspart (Novolog), SQ TIDM Insulin Glargine (Lantus Solostar), 20 UNITS SC QPM Isosorbide Dinitrate (Isordil), 5 MG PO BID Losartan Potassium (Cozaar), 25 MG PO QPM Metoprolol Succ (Toprol Xl) (Toprol-Xl), 25 MG PO QPM Rosuvastatin Calcium (Rosuvastatin Calcium), 40 MG PO QPM Review of Systems Constitutional: No fever, No chills, No sweats, No weight loss, No weakness, No fatigue Eyes: No eye pain, No redness, No discharge ENT: No unusual epistaxis, No nasal symptoms, No sore throat Respiratory: + cough (see HPI), + shortness of breath, No hemoptysis Cardiovascular: + problem reported (see HPI) Abdomen: No pain, No nausea, No vomiting, No diarrhea, No constipation, No GI bleeding Musculoskeletal: No muscle pain, No swelling, No calf pain Genitourinary - Male: + problem reported (reports doesn't make urine) Neurologic: No paralysis, No weakness, No numbness/tingling, No vertigo Endocrine: No excessive thirst Hematologic / Lymphatic: No abnormal bleeding/bruising, No clotting problems Integumentary: No rash, No itch Physical Exam Vital Signs Date Time Temp Pulse Resp B/P (MAP) Pulse Ox O2 Delivery O2 Flow Rate FiO2 08/03/17 18:46 97 16 150/93 95 Room Air 08/03/17 16:50 85 16 149/90 98 Room Air 08/03/17 15:11 98 Room Air 08/03/17 15:06 90 08/03/17 15:00 98 Room Air 08/03/17 14:46 95 Room Air 08/03/17 14:42 37.0 101 18 152/86 95 Room Air General Appearance: WD/WN, no apparent distress Head: normocephalic, atraumatic Eyes: normal inspection, PERRL, EOMI, sclerae normal ENT: hearing grossly normal, pharynx normal, + pertinent finding (mucous membranes moist) Neck: supple, no JVD, trachea midline Respiratory/Chest: no respiratory distress, no accessory muscle use, + decreased breath sounds (bases bilaterally. chest with mild tenderness to palpation right mid chest) Cardiovascular: regular rate, rhythm, normal peripheral pulses Abdomen/GI: normal bowel sounds, non tender, soft Extremities/Musculoskelatal: no calf tenderness, no pedal edema, normal range of motion, non-tender Neurologic/Psych: alert, normal mood/affect, oriented x 3 Skin: normal color, warm/dry Diagnostics Laboratory Results Results Past 24 Hours Test 08/03/17 15:08 08/03/17 15:31 08/03/17 19:10 Range/Units White Blood Count 14.37 4.8-10.8 K/uL Red Blood Count 4.05 4.7-6.1 M/uL Hemoglobin 12.3 14.0-18.0 g/dL Hematocrit 36.2 42-52 % Mean Corpuscular Volume 89.4 80-100 fL Mean Corpuscular Hemoglobin 30.4 25-34 pg Mean Corpuscular Hemoglobin Concent 34.0 32-36 g/dl Platelet Count 371 130-400 K/uL Mean Platelet Volume 10.0 7.4-10.4 fL Neutrophils (%) (Auto) 76.6 % Lymphocytes (%) (Auto) 10.2 % Monocytes (%) (Auto) 7.0 % Eosinophils (%) (Auto) 5.3 % Basophils (%) (Auto) 0.6 % Neutrophils # (Auto) 11.02 1.4-6.5 K/uL Lymphocytes # (Auto) 1.46 1.2-3.4 K/uL Monocytes # (Auto) 1.00 0.11-0.59 K/uL Eosinophils # (Auto) 0.76 0-0.5 K/uL Basophils # (Auto) 0.09 0-0.2 K/uL RDW Standard Deviation 43.4 36.4-46.3 fL RDW Coefficient of Variation 13.3 11.5-14.5 % Immature Granulocyte % (Auto) 0.3 % Immature Granulocyte # (Auto) 0.04 0.00-0.02 K/uL Sodium Level 131 136-145 mmol/L Potassium Level 3.6 3.5-5.1 mmol/L Chloride Level 92 98-107 mmol/L Carbon Dioxide Level 27 21-32 mmol/L Anion Gap 12.0 18.0 16-25 mmol/L Blood Urea Nitrogen 55 7-18 mg/dl Creatinine 7.65 0.60-1.40 mg/dl Est Creatinine Clear Calc Drug Dose 13.2 ml/min Estimated GFR () 9.7 Estimated GFR (Non- 8.4 BUN/Creatinine Ratio 7.1 10-20 Random Glucose 325 70-99 mg/dl Calcium Level 9.0 8.5-10.1 mg/dl Total Creatine Kinase 116 39-308 U/L Creatine Kinase MB 7.0 0.5-3.6 ng/ml Creatine Kinase MB Ratio 6.0 0-3.0 Troponin I 0.183 0-0.045 ng/ml Beta-Hydroxybutyric Acid 3.50 0.2-2.81 mg/dL Bedside Hemoglobin 12.9 14.0-18.0 g/dl Bedside Hematocrit 38 42-52 % Bedside Sodium 135 135-144 mEq/L Bedside Potassium 3.6 3.3-5.0 mEq/L Bedside Chloride 92 101-112 mEq/L Bedside Total CO2 29 24-31 mEq/l Bedside Blood Urea Nitrogen 53 7-18 mg/dl Bedside Creatinine 8.0 0.6-1.3 mg/dl Bedside Glucose (other) 333 70-99 mg/dl Bedside Ionized Calcium (Rupali) 1.10 1.12-1.32 mmol/l Diagnostic Radiology CXR: IMPRESSION: Small bilateral pleural effusions with associated bibasal airspace opacities CTA CHEST: IMPRESSION: 1. There is no evidence of pulmonary embolus in the main, lobar, or segmental pulmonary arteries. 2. Cardiomegaly. 3. Large right and small to moderate left pleural effusions with associated bibasilar consolidation. This likely represents atelectasis. Correlate clinically for evidence of superimposed pneumonia. 4. Additional findings as above. EKG EKG: rate 92, NSR, nonspecific ST changes Read by test deck supervisor: Normal sinus rhythm Possible Left atrial enlargement Voltage criteria for left ventricular hypertrophy Nonspecific ST abnormality Prolonged QT Abnormal ECG When compared with ECG of 21-AUG-2016 08:48, T wave inversions have resolved Confirmed by Willie Godfrey ([id number]) on 08/03/2017 3:29:52 PM Impression Assessment and Plan CHEST PAIN R/O ACS. Risk factors: HTN, hyperlipidemia, DM DDX: musculoskeletal, GERD, pneumonia Pt with hx cardiac cath by Dr Carballo on 07/28/17 with LAD 100% occlusion, RCA 50- 70% stenosis, LV function preserved with hypokinesis of distal anterior myocardium. Treating medically. Hx echo 84: EF: 20-24%, apical inferior & apical septum are akinetic. Troponin 0.183, suspect elevated secondary to renal function. EKG: non-specific ST changes. CTA chest: no PE, pleural effusions, bibasilar consolidation. Pt given ASA and nitro SL x 2 in ER. Pt states CP only with deep inspiration and movement at this time. -Monitor Vitals -Repeat EKG in am -Will trend troponin -Cardiology consult -continue statin -ASA & continue beta anais -Nitro prn CP and repeat EKG for CP DKA Pt non compliant DM I. Didn't take novolog. reports taking lantus last night. Glucose: 325, beta-hydroxybutyric acid: 3.5, anion gap: 12. corrected Na: 135, K : 3.6. Following DKA protocol. gentle D5NS+K and close monitoring with pt being dialysis pt, insulin drip -pharmacy glycemic consult -serial prp to monitor electrolytes -repeat phosphorus and magnesium labs -npo until acidosis resolved -vbgs LEUKOCYTOSIS CT chest: Large right and small to moderate left pleural effusions with associated bibasilar consolidation. atelectasis vs superimposed pneumonia. Pt had non-productive cough yesterday. pending U/A. WBC: 14. Will treat for CAP at this time -doxycycline, Rocephin -cbc in am ESRD on HD MWF schedule. Pt missed HD today -consult nephrology HTN Stable at this time -continue isosorbide, clonidine, losartan, metoprolol HYPERLIPIDEMIA 05/3017 lipid panel. Total: 129, HDL: 47, LDL: 59, Triglycerides: 115 -continue rosuvastatin DVT PROPHYLAXIS -heparin SQ DISPOSITION -admit tele -Full code -Follows with Dr Zambrano for routine care Pt was seen with Dr Cancino. See addendum ADDENDUM: This is a 32 year old male with a PMH of insulin dependent diabetes, type 1, ESRD on hemodialysis -, CAD - presents with R sided chest pain. Patient had a cardiac cath last week, showing a complete occlusion of the LAD and RCA with 50-70% occlusion. Patient states that the pain remained on the R side of the chest. Was told previously that he would need a CABG if chest pain persisted. last week - medical management recommended. Gen: no acute distress CVS: +S1, S2, RRR Lungs: CTA b/l, no wheezing Plan: Chest pain r/o ACS in the setting of CAD patient had a cardiac cath on July 28 - complete LAD occlusion, RCA partial occlusion monitor in tele, trend cardiac enzymes echo done in June 2017 - severely reduced LVEF ~20-24% for now, will continue aspirin, statin, b-anais cardiology consult for further input Severe Ischemic Cardiomyopathy Chronic Systolic CHF currently on the dry side gentle IV hydration monitor for overload; stop IVFs in AM Mild DKA in the setting of Insulin Dependent DM1 patient is non-compliant at baseline; tells me he missed his Novolog doses today he is supposed to be on Lantus 20 units qHS and Novolog 10 units TID presented with BSGs >300, positive serum ketones, elevated anion gap given regular insulin; 0.1units/kg x1 Lantus 10 units BID, insulin sliding scale pharmacy glycemic control consultation Community Acquired Pneumonia bibasilar consolidation noted on Chest CT +leukocytosis will start Rocephin + Doxycycline ESRD supposed to be getting dialysis - he states that he could not make it today (08/03) monitor electrolytes/fluid status nephrology consulted DVT ppx subq heparin FULL CODE Level of Care Telemetry Resuscitation Status FULL RESUSCITATION VTE Prophylaxis VTE Risk Assessment Done? Y/N: Yes Risk Level: Moderate Given or contraindicated: Unfractionated heparin SQ Additional Copies To Merna Zambrano M.D. (MEDICAL)
[2017-08-03] MEDS: INSULIN REGULAR 250 UNITS in SODIUM CHLORIDE 0.9% 250ML 250 ML IV SCH ×2 (20:27→22:14)
[2017-08-03 20:38] LABS: PTT PATIENT 28.2 SECONDS (21.0-31.0)
[2017-08-03] MEDS ORDERED: INSULIN ASPART 100 UNITS/ML 3 ML PEN SC SCH (21:00)
[2017-08-03] MEDS ORDERED: LOSARTAN POTASSIUM 25 MG TAB PO SCH (21:00)
[2017-08-03] MEDS ORDERED: GLUCOSE 10 TABS/TUBE PO PRN (21:00)
[2017-08-03] MEDS ORDERED: GLUCAGON FOR INJ 1 MG VIAL SQ PRN (21:00)
[2017-08-03] MEDS ORDERED: CLONIDINE HCL 0.1 MG TAB PO SCH (21:00)
[2017-08-03] MEDS ORDERED: GLUCOSE 40% GEL 15 GM TUBE PO PRN (21:00)
[2017-08-03] MEDS ORDERED: ROSUVASTATIN CALCIUM 20 MG TAB PO SCH (21:00)
[2017-08-03] MEDS ORDERED: METOPROLOL SUCC 25MG EXT REL TAB PO SCH (21:00)
[2017-08-03] MEDS: DEXTROSE 50% 50 ML SYR IV PRN ×2 (21:54→23:40)
[2017-08-03] MEDS: DOXYCYCLINE IV 100 MG in DEXTROSE 5% 100ML 100 ML IV SCH (21:59)
[2017-08-03] MEDS: HEPARIN SOD 5000 UNIT/0.5 ML CARP SQ SCH (22:21)
--- NOTE | 2017-08-03 22:27 | EMERGENCY ROOM VISIT NOTE ---
History Report prepared by Paulo: Stephy Rinaldi Under the Supervision of: Dr. Arias Garza D.O. First contact with patient: 14:55 Chief Complaint: CHEST PAIN Stated Complaint: CHEST PAIN Nursing Triage Summary: Patient c/o of chest pain with deep breath since this morning. Fistula to right arm. History of Present Illness The patient is a 32 year old male who presents to the Emergency Room with complaints of constant right-sided chest pain for the past 9 hours. He woke up this morning with the pain. Initially he thought that he pulled a muscle but states that his pain has persisted and this feels different. His pain worsens with deep inspiration, coughing, and movement. The patient describes his pain as "stabbing" and rates it as an 8/10 in severity. He also reports a feeling of tightness in his chest. The patient had a cardiac catheterization 6 days ago performed by Dr. Carballo due to a recent failed stress test. This catheterization revealed an EF of 55% and severe CAD; severe disease within the LAD; 100% occlusion of the 1st septal; right coronary diffusely diseased with 70% stenosis. No stents were placed at that time. Pt has a follow-up appointment on 08/15/17. Pt denies headache, fevers, neck pain, jaw pain, shortness of breath, nausea, vomiting, diarrhea. He denies any history of a previous NM or blood clots. He does not take any blood thinners. The patient is on dialysis and receives dialysis M//. He missed his appointment today. 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 A total of 10 systems reviewed and were otherwise negative. Past Medical & Surgical Medical Problems: (1) Bilateral leg edema (2) Broken tooth (3) Cardiomyopathy (4) Chest pain (5) Dehydration (6) Dental caries (7) Diabetes (8) Dyslipidemia (9) Elevated IOP (10) ESRD on hemodialysis (11) Hyperglycemia (12) Hyperkalemia (13) Hypertension (14) Hypertensive emergency (15) Hypertensive Retinopathy, Left Eye (16) Leukocytosis (17) Odontalgia (18) Pain, dental (19) Post-op pain (20) Proteinuria (21) Renal insufficiency (22) Tooth pain with chewing (23) Visual disturbance Surgical Problems: (1) Fistula Family History Diabetes mellitus FH: kidney disease Heart disease Hypertension Kidney stones Social History Smoking Status: Current Every Day Smoker Alcohol Use: none Marital Status: single Housing Status: lives with family Occupation Status: unemployed Current/Historical Medications Scheduled Bumetanide (Bumex), 2 MG PO DAILY Calcium Acetate (Phoslo 667 Mg), 1 CAP PO TIDM Clonidine Hcl (Catapres), 0.1 MG PO QPM Ergocalciferol (Vitamin D 79777 Unit), 1 CAP PO UD Glucose-Vitamin C-Vitamin D (Trueplus Glucose), 1 TAB PO PRN Insulin Aspart (Novolog), SQ TIDM Insulin Glargine (Lantus Solostar), 20 UNITS SC QPM Isosorbide Dinitrate (Isordil), 5 MG PO BID Losartan Potassium (Cozaar), 25 MG PO QPM Metoprolol Succ (Toprol Xl) (Toprol-Xl), 25 MG PO QPM Rosuvastatin Calcium (Rosuvastatin Calcium), 40 MG PO QPM Allergies Coded Allergies: No Known Allergies (Unverified , NKA, 01/20/17) Physical Exam Vital Signs Date Time Temp Pulse Resp B/P (MAP) Pulse Ox O2 Delivery O2 Flow Rate FiO2 08/03/17 16:50 85 16 149/90 98 Room Air 08/03/17 15:11 98 Room Air 08/03/17 15:06 90 08/03/17 15:00 98 Room Air 08/03/17 14:46 95 Room Air 08/03/17 14:42 37.0 101 18 152/86 95 Room Air Physical Exam GENERAL: Sitting up in bed, alert, chronically ill appearing, well nourished, no distress, non-toxic EYE EXAM: normal conjunctiva. OROPHARYNX: no exudate, no erythema, lips, buccal mucosa, and tongue normal and mucous membranes are moist NECK: supple, no nuchal rigidity, no adenopathy, non-tender LUNGS: Clear to auscultation. Normal chest wall mechanics HEART: no murmurs, S1 normal and S2 normal ABDOMEN: abdomen soft, non-tender, normo-active bowel sounds, no masses, no rebound or guarding. BACK: Back is symmetrical on inspection and there is no deformity, no midline tenderness, no CVA tenderness. SKIN: no rashes and no bruising UPPER EXTREMITIES: upper extremities are grossly normal. Fistula in right upper extremity, positive thrill and bruits. LOWER EXTREMITIES: No pitting edema. Calves equal bilaterally NEURO EXAM: Normal sensorium, cranial nerves II-XII grossly intact, normal speech, no gross weakness of arms, no gross weakness of legs. Medical Decision & Procedures ER Provider Diagnostic Interpretation: Radiology results as stated below per my review and the radiologist's interpretation: CHEST ONE VIEW PORTABLE CLINICAL HISTORY: Atypical chest pain COMPARISON STUDY: 08/21/2016 FINDINGS: The heart is mildly enlarged. There are small bilateral pleural effusions with associated bibasal airspace opacities. The upper lung zones appear clear. There is no overt failure.[ IMPRESSION: Small bilateral pleural effusions with associated bibasal airspace opacities Electronically signed by: Jack Hernandez M.D. 08/03/2017 3:30 PM Dictated Date/Time: 08/03/2017 3:[address] ANGIOGRAM OF THE CHEST CLINICAL HISTORY: Pleuritic chest pain. COMPARISON STUDY: Chest x-ray dated 08/03/2017. TECHNIQUE: Following the IV administration of 101 cc of Optiray 320, CT angiogram of the chest was performed from the upper abdomen to the thoracic inlet utilizing the pulmonary embolus protocol. Images are reviewed in the axial, sagittal, and coronal planes. 3-D MIPS images are created and assessed. IV contrast was administered without complication. The patient is a dialysis patient with elevated serum creatinine. The patient was scanned emergently as deemed medically necessary by the referring clinician. A dose lowering technique was utilized adhering to the principles of ALARA. CT DOSE: 370.19 mGycm FINDINGS: Thyroid: Imaged portions of the thyroid gland are normal in size and attenuation. Thoracic aorta: The thoracic aorta is normal in caliber and demonstrates bovine variant arch anatomy. No dissection is seen. Pulmonary vasculature: The pulmonary trunk is dilated, measuring 3.0 cm in diameter. This suggests pulmonary artery hypertension. There are no filling defects identified in main, lobar, or segmental pulmonary branches to suggest pulmonary embolus. Heart: The heart is enlarged and without pericardial effusion. The coronary arteries are densely calcified. Lungs and pleural spaces: Evaluation of the lung parenchyma is modestly degraded by motion artifact. There are large right and [id number] left pleural effusions with associated consolidation. Fluid is noted along the right major fissure. Mild emphysematous change is suspected. The trachea and central airways are patent. Mediastinum: There is no mediastinal lymphadenopathy. Marina: Clear. Axillae: There is no axillary lymphadenopathy. Upper abdomen: Partially visualized upper abdominal viscera is within normal limits. Skeletal structures: No lytic or blastic bony lesions are seen. IMPRESSION: 1. There is no evidence of pulmonary embolus in the main, lobar, or segmental pulmonary arteries. 2. Cardiomegaly. 3. Large right and small to moderate left pleural effusions with associated bibasilar consolidation. This likely represents atelectasis. Correlate clinically for evidence of superimposed pneumonia. 4. Additional findings as above. Electronically signed by: Wang Dickens M.D. 08/03/2017 4:25 PM Dictated Date/Time: 08/03/2017 4:21 PM Laboratory Results 08/03/17 15:08 Red Blood Count 4.05, Mean Corpuscular Volume 89.4, Mean Corpuscular Hemoglobin 30.4, Mean Corpuscular Hemoglobin Concent 34.0, Mean Platelet Volume 10.0, Neutrophils (%) (Auto) 76.6, Lymphocytes (%) (Auto) 10.2, Monocytes (%) (Auto) 7.0, Eosinophils (%) (Auto) 5.3, Basophils (%) (Auto) 0.6, Neutrophils # (Auto) 11.02, Lymphocytes # (Auto) 1.46, Monocytes # (Auto) 1.00, Eosinophils # (Auto) 0.76, Basophils # (Auto) 0.09 Test 08/03/17 15:08 08/03/17 15:31 White Blood Count 14.37 K/uL (4.8-10.8) Red Blood Count 4.05 M/uL (4.7-6.1) Hemoglobin 12.3 g/dL (14.0-18.0) Hematocrit 36.2 % (42-52) Mean Corpuscular Volume 89.4 fL (80-100) Mean Corpuscular Hemoglobin 30.4 pg (25-34) Mean Corpuscular Hemoglobin Concent 34.0 g/dl (32-36) Platelet Count 371 K/uL (130-400) Mean Platelet Volume 10.0 fL (7.4-10.4) Neutrophils (%) (Auto) 76.6 % Lymphocytes (%) (Auto) 10.2 % Monocytes (%) (Auto) 7.0 % Eosinophils (%) (Auto) 5.3 % Basophils (%) (Auto) 0.6 % Neutrophils # (Auto) 11.02 K/uL (1.4-6.5) Lymphocytes # (Auto) 1.46 K/uL (1.2-3.4) Monocytes # (Auto) 1.00 K/uL (0.11-0.59) Eosinophils # (Auto) 0.76 K/uL (0-0.5) Basophils # (Auto) 0.09 K/uL (0-0.2) RDW Standard Deviation 43.4 fL (36.4-46.3) RDW Coefficient of Variation 13.3 % (11.5-14.5) Immature Granulocyte % (Auto) 0.3 % Immature Granulocyte # (Auto) 0.04 K/uL (0.00-0.02) Prothrombin Time 10.7 SECONDS (9.0-12.0) Prothromb Time International Ratio 1.0 (0.9-1.1) Activated Partial Thromboplast Time 28.2 SECONDS (21.0-31.0) Partial Thromboplastin Ratio 1.1 Est Creatinine Clear Calc Drug Dose 13.2 ml/min Total Creatine Kinase 116 U/L (39-308) Creatine Kinase MB 7.0 ng/ml (0.5-3.6) Creatine Kinase MB Ratio 6.0 (0-3.0) Beta-Hydroxybutyric Acid 3.50 mg/dL (0.2-2.81) Bedside Hemoglobin 12.9 g/dl (14.0-18.0) Bedside Hematocrit 38 % (42-52) Bedside Sodium 135 mEq/L (135-144) Bedside Potassium 3.6 mEq/L (3.3-5.0) Bedside Chloride 92 mEq/L (101-112) Bedside Total CO2 29 mEq/l (24-31) Bedside Blood Urea Nitrogen 53 mg/dl (7-18) Bedside Creatinine 8.0 mg/dl (0.6-1.3) Bedside Glucose (other) 333 mg/dl (70-99) Bedside Ionized Calcium (Rupali) 1.10 mmol/l (1.12-1.32) Laboratory results per my review. Medications Administered Medications (Trade) Dose Ordered Sig/Richie Route Start Time Stop Time Status Last Admin Dose Admin Aspirin (Aspirin Chew) 324 mg NOW STAT PO 08/03/17 15:20 08/03/17 15:21 DC 08/03/17 15:40 324 MG Nitroglycerin (Nitrostat Tab) 0.4 mg Q5M PRN SL 08/03/17 15:30 08/03/17 18:26 DC 08/03/17 16:53 0.4 MG Insulin Human Regular 7 units/ Syringe 7.07 ml @ 14.14 mls/ min ONE STAT IV 08/03/17 18:13 08/03/17 18:27 DC 08/03/17 18:44 14.14 MLS/MIN ECG Indication: chest pain Rate (beats per minute): 92 Rhythm: normal sinus Findings: peaked T-waves (in anterior leads with J-point elevation), Q waves ( Septal), prolonged QT, other (normal axis) Comparison ECG Date: 08/21/16 Change: Peaked T-waves and J-point elevation are new. A repeat ECG performed in the department reveals a NSR at 89, nonspecific ST changes inferiorly with persistent unchanged elevations in anterior leads. Patient's electrocardiograms interpreted by me. ED Course ED COURSE: Vital signs were reviewed and showed hypertensive. The patients medical record was reviewed The above diagnostic studies were performed and reviewed. ED treatments and interventions as stated above. 1459: The patient was evaluated in room B7. A complete history and physical examination was performed. 1520: Aspirin 324 mg PO 1528: I discussed the patient's case with Dr. Carballo of cardiology. He recommended admission to the hospitalist. 1530: Nitroglycerin 0.4 mg SL - PRN 1536: I updated the patient and he is in agreement with the treatment plan. 1637: I spoke with Gabriela Lloyd PA-C. We discussed the patient's case. [facility]. 1651: Upon reevaluation, the patient is felling better. His chest pain is now a 1-2/10. He will be getting additional nitro. I discussed my findings with the patient and he understands and agrees with the treatment plan. Based on the patients age, coexisting illnesses, exam and lab findings the decision to treat as an inpatient was made. The patient remained stable while under my care. The patient will be evaluated for further management. Medical Decision Differential diagnoses includes but is not limited to acute coronary syndrome, myocardial infarction, pericarditis, pulmonary embolus, aortic dissection, pneumonia, pneumothorax, musculoskeletal, shingles, esophageal. Patient is a 32-year-old male with a past medical history of CAD on dialysis who presents to ER with pleuritic chest pain and any chest heaviness. He did not get dialysis today. He has multiple lesions following a cath performed within the week. Upon presentation I reviewed his EKG and it was fairly consistent with his previous. I discussed with his bandoleer straightener stamper that performed the catheterization last week. They agreed with nitroglycerin aspirin and admitting him to the hospital. He did eventually become pain free following the nitroglycerin. Repeat EKG was unchanged. Troponin was slightly elevated at 0.18 although I favor this is secondary to his CK D but cannot be certain. CTA was performed secondary to the pleuritic chest pain which showed bilateral pleural effusions and atelectasis. Patient was updated at bedside admits internal medicine for chest pain with severe CAD. Medication Reconcilliation Current Medication List: was personally reviewed by me Blood Pressure Screening Patient's blood pressure: Elevated blood pressure Blood pressure disposition: Referred to PCP Consults Time Called: 1526 Consulting Physician: Dr. Carballo Returned Call: [phone] I discussed the patient's case with Dr. Carballo of cardiology. He recommended admission to the hospitalist. Additional Consults: Time Called: 1634 Consulted Physician: Gabriela Lloyd PA-C Returned Call: [phone] Additional Comments: I spoke with Gabriela Lloyd PA-C. We discussed the patient's case. The patient will be evaluated by the [facility] for further management. Impression Primary Impression: Substernal precordial chest pain Additional Impression: CAD (coronary artery disease) Scribe Attestation The scribe's documentation has been prepared under my direction and personally reviewed by me in its entirety. I confirm that the note above accurately reflects all work, treatment, procedures, and medical decision making performed by me. Departure Information Dispostion Being Evaluated By Hospitalist Referrals Merna Zambrano M.D. (MEDICAL) (PCP) Patient Instructions [facility] Problem Qualifiers Additional Impression: CAD (coronary artery disease) Coronary Disease-Associated Artery/Lesion type: unspecified vessel or lesion type [place] vs. transplanted heart: unspecified whether [place] or transplanted heart Associated angina: angina presence unspecified Qualified Codes: I25.10 - Atherosclerotic heart disease of [place] coronary artery without angina pectoris
[2017-08-03 22:34] VITALS: BP 188/97; PULSE 90
[2017-08-03] MEDS: ISOSORBIDE DINITRATE 5 MG TAB PO SCH (22:37)
[2017-08-03 22:45] LABS: CALCIUM 8.9 mg/dl (8.5-10.1); CREATININE 7.86 mg/dl (0.60-1.40); PHOSPHORUS 5.4 mg/dl (2.5-4.9); POTASSIUM 3.1 mmol/L (3.5-5.1)
[2017-08-03 23:15] VITALS: O2SAT 95
[2017-08-03 23:20] VITALS: BP 174/89; PULSE 92; TEMP 37; O2SAT 95
[2017-08-04] VITALS (25 sets, daily range): BP systolic 107–174; BP diastolic 67–91; PULSE 76–92; TEMP 36.8–37; O2SAT 94–95; Ht 180.3 cm; Wt 65.3 kg
[2017-08-04] MEDS ORDERED: POTASSIUM CHLORIDE 10 MEQ TABCR PO STA (00:06)
[2017-08-04] MEDS ORDERED: NSS + 20MEQ KCL 1000ML 1,000 ML IV SCH ×2 (00:15→01:00)
[2017-08-04] MEDS ORDERED: INSULIN GLARGINE SOLOSTAR 100 UNITS/ML 3 ML PEN SC ONE (00:15)
[2017-08-04] MEDS ORDERED: SODIUM CHLORIDE 0.9% 250ML 250 ML IV ONE (00:30)
[2017-08-04 03:12] LABS: BASO % 0.7 %; BASO ABS # 0.08 K/uL (0-0.2); EOS ABS # 0.56 K/uL (0-0.5); HEMOGLOBIN 9.9 g/dL (14.0-18.0); IG# 0.03 K/uL (0.00-0.02); LYMPH % 17.5 %; LYMPH ABS # 1.96 K/uL (1.2-3.4); MEAN CELL VOLUME 88.1 fL (80-100); MEAN CORPUSCULAR HEMOGLOBIN 30.1 pg (25-34); MEAN CORPUSCULAR HGB CONC 34.1 g/dl (32-36); MEAN PLATELET VOLUME 9.3 fL (7.4-10.4); MONO % 6.7 %; MONO ABS # 0.75 K/uL (0.11-0.59); NEUT % 69.8 %; NEUT ABS # 7.81 K/uL (1.4-6.5); PLATELET COUNT 344 K/uL (130-400); RED CELL DISTRIBUTION WIDTH CV 13.4 % (11.5-14.5); RED CELL DISTRIBUTION WIDTH SD 43.1 fL (36.4-46.3); WHITE BLOOD COUNT 11.19 K/uL (4.8-10.8)
[2017-08-04 03:50] LABS: CALCIUM 8.4 mg/dl (8.5-10.1); CREATININE 8.36 mg/dl (0.60-1.40); POTASSIUM 3.6 mmol/L (3.5-5.1)
[2017-08-04] MEDS: INSULIN ASPART 100 UNITS/ML 3 ML PEN SC SCH ×2 (06:00→11:35)
[2017-08-04 06:07] LABS: HEMOGLOBIN A1C 9.8 % (4.5-5.6)
[2017-08-04] MEDS: HEPARIN SOD 5000 UNIT/0.5 ML CARP SQ SCH ×2 (06:13→13:21)
[2017-08-04] MEDS: DOXYCYCLINE IV 100 MG in DEXTROSE 5% 100ML 100 ML IV SCH (07:59)
[2017-08-04] MEDS: CALCIUM ACETATE 667MG GELCAP PO SCH ×3 (07:59→17:09)
[2017-08-04] MEDS ORDERED: EPOETIN ALFA 10,000 UNITS/ML VIAL IV SCH (09:00)
[2017-08-04] MEDS ORDERED: ASPIRIN 81 MG ECTAB PO SCH (09:00)
[2017-08-04] MEDS ORDERED: BUMETANIDE 1 MG TAB PO SCH (09:00)
--- NOTE | 2017-08-04 09:54 | Nephrology Consultation ---
Nephrology Consultation Date & Providers Date of Consultation: Aug 04, 2017. Primary Care Provider: Merna Zambrano M.D. (MEDICAL) Referring Provider: Reason for Consultation ESRD History of Present Illness Mr. Km Rebolledo is a 32 year-old male with type 1 diabetes mellitus , hypertension, ESRD and ischemic cardiomyopathy. Km is on maintenance hemodialysis at [facility] under my care. He dialyzes on a MWF schedule. He missed his scheduled treatment yesterday. Yesterday, Km presented to the ED at [facility] with chest pain. He describes sharp, substernal pain and chest pressure which started at rest. Symptom was similar to prior symptoms but of increased intensity. Activity tolerance at baseline is limited due to dyspnea. He does not endorse any increase in frequency of symptoms. He notes that he had experienced some dyspepsia the prior evening after eating fast food. Cardiac catheterization was completed on July 28. This demonstrated severe multivessel disease. The patient was scheduled to see CT surgery in [place] as an outpatient. Chest pain has improved. Km denies lightheadedness or palpitations. Past Medical/Surgical History Medical: ESRD on HD Ischemic cardiomyopathy with multivessel CAD DM I, uncontrolled Hypertension Current smoker Chronic pleural effusion Nephrotic proteinuria Anemia of CKD Secondary hyperparathyroidism Surgical: Kidney biopsy AVF placement Allergies Coded Allergies: No Known Allergies (Unverified , NKA, 01/20/17) Inpatient Medications Current Inpatient Medications Medications (Trade) Dose Ordered Sig/Richie Route Start Time Stop Time Status Last Admin Dose Admin Ioversol (Optiray 320) 111 ml UD PRN IV 08/03/17 15:45 08/07/17 15:44 Heparin Sodium (Porcine) (Heparin Sq 5000 Unit/0.5ml) 5,000 unit Q8 SQ 08/03/17 22:00 09/02/17 21:59 08/04/17 06:13 5,000 UNIT Acetaminophen (Tylenol Tab) 650 mg Q4H PRN PO 08/03/17 18:15 09/02/17 18:14 Nitroglycerin (Nitrostat Tab) 0.4 mg UD PRN SL 08/03/17 18:15 09/02/17 18:14 Polyethylene (Miralax Powder Packet) 17 gm DAILY PRN PO 08/03/17 18:15 09/02/17 18:14 Ceftriaxone Sodium 1 gm/ Dextrose 50 ml @ 100 mls/hr Q24H IV 08/03/17 20:00 08/10/17 19:59 08/03/17 20:36 100 MLS/HR Doxycycline Hyclate 100 mg/ Dextrose 110 ml @ 50 mls/hr BID IV 08/03/17 21:00 08/10/17 20:59 08/04/17 07:59 50 MLS/HR Miscellaneous Information (Consult Glycemic Management Pharmacy) 1 ea UD PRN N/A 08/03/17 19:30 09/02/17 19:29 Aspirin (Ecotrin Tab) 81 mg QAM PO 08/04/17 09:00 09/03/17 08:59 Calcium Acetate (Phoslo Cap) 667 mg TIDM PO 08/04/17 08:00 09/03/17 07:59 Clonidine HCl (Catapres Tab) 0.1 mg QPM PO 08/03/17 21:00 09/02/17 20:59 08/03/17 22:37 0.1 MG Isosorbide Dinitrate (Isordil Tab) 5 mg BID@1100,2100 PO 08/03/17 21:00 09/02/17 20:59 08/03/17 22:37 5 MG Losartan Potassium (coZAAR TAB) 25 mg QPM PO 08/03/17 21:00 09/02/17 20:59 08/03/17 22:37 25 MG Metoprolol Succinate (Toprol Xl Tab) 25 mg QPM PO 08/03/17 21:00 09/02/17 20:59 08/03/17 22:37 25 MG Rosuvastatin Calcium (Crestor Tab) 40 mg QPM PO 08/03/17 21:00 09/02/17 20:59 08/03/17 22:37 40 MG Glucose (Glucose 40% Gel) 15-30 GRAMS 15 GRAMS... UD PRN PO 08/03/17 21:00 09/02/17 20:59 Glucose (Glucose Chew Tab) 4-8 Tablets 4 Tabl... UD PRN PO 08/03/17 21:00 09/02/17 20:59 Dextrose (Dextrose 50% 50ML Syringe) 25-50ML OF 50% DW IV FOR... UD PRN IV 08/03/17 21:00 09/02/17 20:59 08/03/17 23:40 25 ML Glucagon (Glucagon Inj) 1 mg UD PRN SQ 08/03/17 21:00 09/02/17 20:59 Insulin Aspart (novoLOG ASPART) SLIDING SCALE Q6 SC 08/04/17 06:00 09/03/17 05:59 Potassium Chloride/Sodium Chloride 1,000 ml @ 40 mls/hr Q24H IV 08/04/17 01:00 09/03/17 00:14 08/04/17 01:28 40 MLS/HR Epoetin Johnny (Procrit Inj) 10,000 units ONE IV 08/04/17 09:00 09/03/17 08:59 UNV Family History Diabetes mellitus FH: kidney disease Heart disease Hypertension Kidney stones Social History Smoking Status: Current Every Day Smoker Smokeless Tobacco Use: No Alcohol Use: none Drug Use: none Marital Status: single Occupation: unemployed Review of Systems A complete review of systems was performed. Pertinent positives are noted above. All other systems are negative. Physical Exam Date Time Temp Pulse Resp B/P (MAP) Pulse Ox O2 Delivery O2 Flow Rate FiO2 08/04/17 08:16 94 Room Air 08/04/17 08:16 36.8 78 16 163/87 (112) 94 Room Air 08/04/17 08:00 95 Room Air 08/04/17 04:00 95 Room Air 08/04/17 03:50 36.9 77 18 138/79 (98) 95 Room Air 08/04/17 00:12 37.0 92 18 174/89 95 Room Air 08/03/17 23:20 37.0 92 18 174/89 (117) 95 Room Air 08/03/17 23:15 95 Room Air 08/03/17 22:34 90 188/97 (127) 08/03/17 20:00 96 Room Air 08/03/17 20:00 36.7 90 14 151/89 (109) 96 Room Air 08/03/17 19:30 91 18 150/93 94 08/03/17 18:46 97 16 150/93 95 Room Air 08/03/17 16:50 85 16 149/90 98 Room Air 08/03/17 15:11 98 Room Air 08/03/17 15:06 90 08/03/17 15:00 98 Room Air 08/03/17 14:46 95 Room Air 08/03/17 14:42 37.0 101 18 152/86 95 Room Air General Appearance: WD/WN, no apparent distress Head: normocephalic, atraumatic Eyes: normal inspection, sclerae normal ENT: normal ENT inspection, pharynx normal Neck: supple, no JVD Respiratory/Chest: lungs clear, no respiratory distress, no accessory muscle use Cardiovascular: regular rate, rhythm, no gallop Abdomen/GI: non tender, soft Back: normal inspection, no CVA tenderness Extremities/Musculoskelatal: normal inspection, + pedal edema, + pertinent finding (AVF with thrill and bruit) Neurologic/Psych: alert, + depressed affect Skin: normal color Laboratory Results Last 24 Hours Test 08/03/17 15:08 08/03/17 15:31 08/03/17 19:10 08/03/17 19:38 White Blood Count 14.37 K/uL Red Blood Count 4.05 M/uL Hemoglobin 12.3 g/dL Hematocrit 36.2 % Mean Corpuscular Volume 89.4 fL Mean Corpuscular Hemoglobin 30.4 pg Mean Corpuscular Hemoglobin Concent 34.0 g/dl Platelet Count 371 K/uL Mean Platelet Volume 10.0 fL Neutrophils (%) (Auto) 76.6 % Lymphocytes (%) (Auto) 10.2 % Monocytes (%) (Auto) 7.0 % Eosinophils (%) (Auto) 5.3 % Basophils (%) (Auto) 0.6 % Neutrophils # (Auto) 11.02 K/uL Lymphocytes # (Auto) 1.46 K/uL Monocytes # (Auto) 1.00 K/uL Eosinophils # (Auto) 0.76 K/uL Basophils # (Auto) 0.09 K/uL RDW Standard Deviation 43.4 fL RDW Coefficient of Variation 13.3 % Immature Granulocyte % (Auto) 0.3 % Immature Granulocyte # (Auto) 0.04 K/uL Prothrombin Time 10.7 SECONDS Prothromb Time International Ratio 1.0 Activated Partial Thromboplast Time 28.2 SECONDS Partial Thromboplastin Ratio 1.1 Sodium Level 131 mmol/L Potassium Level 3.6 mmol/L Chloride Level 92 mmol/L Carbon Dioxide Level 27 mmol/L Anion Gap 12.0 mmol/L 18.0 mmol/L Blood Urea Nitrogen 55 mg/dl Creatinine 7.65 mg/dl Est Creatinine Clear Calc Drug Dose 13.2 ml/min Estimated GFR () 9.7 Estimated GFR (Non- 8.4 BUN/Creatinine Ratio 7.1 Random Glucose 325 mg/dl Calcium Level 9.0 mg/dl Total Creatine Kinase 116 U/L Creatine Kinase MB 7.0 ng/ml Creatine Kinase MB Ratio 6.0 Troponin I 0.183 ng/ml Beta-Hydroxybutyric Acid 3.50 mg/dL Bedside Hemoglobin 12.9 g/dl Bedside Hematocrit 38 % Bedside Sodium 135 mEq/L Bedside Potassium 3.6 mEq/L Bedside Chloride 92 mEq/L Bedside Total CO2 29 mEq/l Bedside Blood Urea Nitrogen 53 mg/dl Bedside Creatinine 8.0 mg/dl Bedside Glucose (other) 333 mg/dl Bedside Ionized Calcium (Rupali) 1.10 mmol/l Venous Blood pH 7.34 Venous Blood Partial Pressure CO2 48 mmHg Venous Blood Partial Pressure O2 45 mmHg Venous Blood HCO3 25 mmol/L Venous Blood Oxygen Saturation 79.2 % Venous Blood Base Excess -0.9 mEq/L Phosphorus Level 5.7 mg/dl Magnesium Level 2.2 mg/dl Bedside Glucose 166 mg/dl Test 08/03/17 21:41 08/03/17 22:07 08/03/17 23:23 08/03/17 23:56 Bedside Glucose 80 mg/dl 81 mg/dl 123 mg/dl Venous Blood pH 7.31 Venous Blood Partial Pressure CO2 55 mmHg Venous Blood Partial Pressure O2 29 mmHg Venous Blood HCO3 27 mmol/L Venous Blood Oxygen Saturation < 60.0 % Venous Blood Base Excess 0.4 mEq/L Sodium Level 134 mmol/L Potassium Level 3.1 mmol/L Chloride Level 94 mmol/L Carbon Dioxide Level 27 mmol/L Anion Gap 12.0 mmol/L Blood Urea Nitrogen 58 mg/dl Creatinine 7.86 mg/dl Est Creatinine Clear Calc Drug Dose 12.9 ml/min Estimated GFR () 9.4 Estimated GFR (Non- 8.1 BUN/Creatinine Ratio 7.4 Random Glucose 123 mg/dl Calcium Level 8.9 mg/dl Phosphorus Level 5.4 mg/dl Magnesium Level 2.3 mg/dl Troponin I 0.169 ng/ml Test 08/04/17 02:53 08/04/17 06:08 08/04/17 06:30 White Blood Count 11.19 K/uL Red Blood Count 3.29 M/uL Hemoglobin 9.9 g/dL Hematocrit 29.0 % Mean Corpuscular Volume 88.1 fL Mean Corpuscular Hemoglobin 30.1 pg Mean Corpuscular Hemoglobin Concent 34.1 g/dl Platelet Count 344 K/uL Mean Platelet Volume 9.3 fL Neutrophils (%) (Auto) 69.8 % Lymphocytes (%) (Auto) 17.5 % Monocytes (%) (Auto) 6.7 % Eosinophils (%) (Auto) 5.0 % Basophils (%) (Auto) 0.7 % Neutrophils # (Auto) 7.81 K/uL Lymphocytes # (Auto) 1.96 K/uL Monocytes # (Auto) 0.75 K/uL Eosinophils # (Auto) 0.56 K/uL Basophils # (Auto) 0.08 K/uL RDW Standard Deviation 43.1 fL RDW Coefficient of Variation 13.4 % Immature Granulocyte % (Auto) 0.3 % Immature Granulocyte # (Auto) 0.03 K/uL Activated Partial Thromboplast Time 29.0 SECONDS Partial Thromboplastin Ratio 1.1 Sodium Level 134 mmol/L Potassium Level 3.6 mmol/L Chloride Level 97 mmol/L Carbon Dioxide Level 29 mmol/L Anion Gap 8.0 mmol/L Blood Urea Nitrogen 61 mg/dl Creatinine 8.36 mg/dl Est Creatinine Clear Calc Drug Dose 12.1 ml/min Estimated GFR () 8.8 Estimated GFR (Non- 7.6 BUN/Creatinine Ratio 7.4 Random Glucose 97 mg/dl Estimated Average Glucose 235 mg/dl Hemoglobin A1c 9.8 % Calcium Level 8.4 mg/dl Troponin I 0.142 ng/ml Bedside Glucose 89 mg/dl Urine Color YELLOW Urine Appearance CLOUDY Urine pH 5.5 Urine Specific [place] 1.029 Urine Protein 4+ Urine Glucose (UA) 2+ Urine Ketones NEG Urine Occult Blood TRACE Urine Nitrite NEG Urine Bilirubin NEG Urine Urobilinogen NEG Urine Leukocyte Esterase NEG Urine WBC (Auto) 5-10 /hpf Urine RBC (Auto) 5-10 /hpf Urine Hyaline Casts (Auto) 5-10 /lpf Urine Epithelial Cells (Auto) >30 /lpf Urine Bacteria (Auto) NEG Impression (1) ESRD on hemodialysis (2) Substernal precordial chest pain (3) CAD (coronary artery disease) Mr. 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 He has a significant smoking history would place him at risk for nodular glomerular sclerosis as well as a secondary FSGS. Km is on HD MWF at [facility]. He has a well functioning AVF. He will require hemodialysis today for UF. Blood pressure should improve with treatment. Recommendations ESRD: -- HD today, orders entered into EMR and discussed with dialysis nurse -- Medications are appropriately dosed for renal function -- Renal diet Anemia: -- EPO 35668 IU with HD Chest pain: -- Cardiology consult pending -- Discussed plan of care and cath findings with Dr. Carballo this morning CKD/MBD: -- [facility]
[2017-08-04] MEDS: ISOSORBIDE DINITRATE 5 MG TAB PO SCH (10:40)
--- NOTE | 2017-08-04 10:41 | Dialysis Progress Note ---
Hemodialysis Note Date of Service Aug 04, 2017. Chief Complaint ESRD Subjective Km was seen and evaluated during hemodialysis this morning. He is tolerating dialysis well. Qb appropriate. Blood pressure slightly elevated but improving. Chest pain persists as mild and positional. Review of Systems A complete review of systems was performed. Pertinent positives are noted above. All other systems are negative. Vital Signs Last 8 Hrs Date Time Temp Pulse Resp B/P (MAP) Pulse Ox O2 Delivery O2 Flow Rate FiO2 08/04/17 08:16 94 Room Air 08/04/17 08:16 36.8 78 16 163/87 (112) 94 Room Air 08/04/17 08:00 95 Room Air 08/04/17 04:00 95 Room Air 08/04/17 03:50 36.9 77 18 138/79 (98) 95 Room Air Last Recorded Weight Weight (Kilograms): 68.000 Physical Exam General Appearance: WD/WN, no apparent distress Head: normocephalic, atraumatic Eyes: normal inspection, sclerae normal ENT: normal ENT inspection, pharynx normal Neck: supple, no JVD Cardiovascular: regular rate, rhythm, no gallop Abdomen/GI: non tender, soft Extremities/Musculoskelatal: normal inspection, + pedal edema Neurologic/Psych: alert, + depressed affect Social History Smokeless Tobacco Use: No Alcohol Use: none Drug Use: none Marital Status: single Occupation: unemployed Laboratory Results Past 24 Hours 08/03/17 15:08 Red Blood Count 4.05, Mean Corpuscular Volume 89.4, Mean Corpuscular Hemoglobin 30.4, Mean Corpuscular Hemoglobin Concent 34.0, Mean Platelet Volume 10.0, Neutrophils (%) (Auto) 76.6, Lymphocytes (%) (Auto) 10.2, Monocytes (%) (Auto) 7.0, Eosinophils (%) (Auto) 5.3, Basophils (%) (Auto) 0.6, Neutrophils # (Auto) 11.02, Lymphocytes # (Auto) 1.46, Monocytes # (Auto) 1.00, Eosinophils # (Auto) 0.76, Basophils # (Auto) 0.09 08/04/17 02:53 Red Blood Count 3.29, Mean Corpuscular Volume 88.1, Mean Corpuscular Hemoglobin 30.1, Mean Corpuscular Hemoglobin Concent 34.1, Mean Platelet Volume 9.3, Neutrophils (%) (Auto) 69.8, Lymphocytes (%) (Auto) 17.5, Monocytes (%) (Auto) 6.7, Eosinophils (%) (Auto) 5.0, Basophils (%) (Auto) 0.7, Neutrophils # (Auto) 7.81, Lymphocytes # (Auto) 1.96, Monocytes # (Auto) 0.75, Eosinophils # (Auto) 0.56, Basophils # (Auto) 0.08 08/03/17 15:08 08/03/17 22:07 08/04/17 02:53 Test 08/03/17 15:08 08/03/17 15:31 08/03/17 19:10 08/03/17 19:38 White Blood Count 14.37 K/uL (4.8-10.8) Red Blood Count 4.05 M/uL (4.7-6.1) Hemoglobin 12.3 g/dL (14.0-18.0) Hematocrit 36.2 % (42-52) Mean Corpuscular Volume 89.4 fL (80-100) Mean Corpuscular Hemoglobin 30.4 pg (25-34) Mean Corpuscular Hemoglobin Concent 34.0 g/dl (32-36) Platelet Count 371 K/uL (130-400) Mean Platelet Volume 10.0 fL (7.4-10.4) Neutrophils (%) (Auto) 76.6 % Lymphocytes (%) (Auto) 10.2 % Monocytes (%) (Auto) 7.0 % Eosinophils (%) (Auto) 5.3 % Basophils (%) (Auto) 0.6 % Neutrophils # (Auto) 11.02 K/uL (1.4-6.5) Lymphocytes # (Auto) 1.46 K/uL (1.2-3.4) Monocytes # (Auto) 1.00 K/uL (0.11-0.59) Eosinophils # (Auto) 0.76 K/uL (0-0.5) Basophils # (Auto) 0.09 K/uL (0-0.2) RDW Standard Deviation 43.4 fL (36.4-46.3) RDW Coefficient of Variation 13.3 % (11.5-14.5) Immature Granulocyte % (Auto) 0.3 % Immature Granulocyte # (Auto) 0.04 K/uL (0.00-0.02) Prothrombin Time 10.7 SECONDS (9.0-12.0) Prothromb Time International Ratio 1.0 (0.9-1.1) Activated Partial Thromboplast Time 28.2 SECONDS (21.0-31.0) Partial Thromboplastin Ratio 1.1 Anion Gap 12.0 mmol/L (3-11) 18.0 mmol/L (16-25) Est Creatinine Clear Calc Drug Dose 13.2 ml/min Estimated GFR () 9.7 Estimated GFR (Non- 8.4 BUN/Creatinine Ratio 7.1 (10-20) Calcium Level 9.0 mg/dl (8.5-10.1) Total Creatine Kinase 116 U/L (39-308) Creatine Kinase MB 7.0 ng/ml (0.5-3.6) Creatine Kinase MB Ratio 6.0 (0-3.0) Troponin I 0.183 ng/ml (0-0.045) Beta-Hydroxybutyric Acid 3.50 mg/dL (0.2-2.81) Bedside Hemoglobin 12.9 g/dl (14.0-18.0) Bedside Hematocrit 38 % (42-52) Bedside Sodium 135 mEq/L (135-144) Bedside Potassium 3.6 mEq/L (3.3-5.0) Bedside Chloride 92 mEq/L (101-112) Bedside Total CO2 29 mEq/l (24-31) Bedside Blood Urea Nitrogen 53 mg/dl (7-18) Bedside Creatinine 8.0 mg/dl (0.6-1.3) Bedside Glucose (other) 333 mg/dl (70-99) Bedside Ionized Calcium (Rupali) 1.10 mmol/l (1.12-1.32) Venous Blood pH 7.34 (7.36-7.41) Venous Blood Partial Pressure CO2 48 mmHg (38.0-50.0) Venous Blood Partial Pressure O2 45 mmHg Venous Blood HCO3 25 mmol/L Venous Blood Oxygen Saturation 79.2 % Venous Blood Base Excess -0.9 mEq/L Phosphorus Level 5.7 mg/dl (2.5-4.9) Magnesium Level 2.2 mg/dl (1.8-2.4) Bedside Glucose 166 mg/dl (70-99) Test 08/03/17 21:41 08/03/17 22:07 08/03/17 23:23 08/03/17 23:56 Bedside Glucose 80 mg/dl (70-99) 81 mg/dl (70-99) 123 mg/dl (70-99) Venous Blood pH 7.31 (7.36-7.41) Venous Blood Partial Pressure CO2 55 mmHg (38.0-50.0) Venous Blood Partial Pressure O2 29 mmHg Venous Blood HCO3 27 mmol/L Venous Blood Oxygen Saturation < 60.0 % Venous Blood Base Excess 0.4 mEq/L Anion Gap 12.0 mmol/L (3-11) Est Creatinine Clear Calc Drug Dose 12.9 ml/min Estimated GFR () 9.4 Estimated GFR (Non- 8.1 BUN/Creatinine Ratio 7.4 (10-20) Calcium Level 8.9 mg/dl (8.5-10.1) Phosphorus Level 5.4 mg/dl (2.5-4.9) Magnesium Level 2.3 mg/dl (1.8-2.4) Troponin I 0.169 ng/ml (0-0.045) Test 08/04/17 02:53 08/04/17 06:08 08/04/17 06:30 08/04/17 10:23 White Blood Count 11.19 K/uL (4.8-10.8) Red Blood Count 3.29 M/uL (4.7-6.1) Hemoglobin 9.9 g/dL (14.0-18.0) Hematocrit 29.0 % (42-52) Mean Corpuscular Volume 88.1 fL (80-100) Mean Corpuscular Hemoglobin 30.1 pg (25-34) Mean Corpuscular Hemoglobin Concent 34.1 g/dl (32-36) Platelet Count 344 K/uL (130-400) Mean Platelet Volume 9.3 fL (7.4-10.4) Neutrophils (%) (Auto) 69.8 % Lymphocytes (%) (Auto) 17.5 % Monocytes (%) (Auto) 6.7 % Eosinophils (%) (Auto) 5.0 % Basophils (%) (Auto) 0.7 % Neutrophils # (Auto) 7.81 K/uL (1.4-6.5) Lymphocytes # (Auto) 1.96 K/uL (1.2-3.4) Monocytes # (Auto) 0.75 K/uL (0.11-0.59) Eosinophils # (Auto) 0.56 K/uL (0-0.5) Basophils # (Auto) 0.08 K/uL (0-0.2) RDW Standard Deviation 43.1 fL (36.4-46.3) RDW Coefficient of Variation 13.4 % (11.5-14.5) Immature Granulocyte % (Auto) 0.3 % Immature Granulocyte # (Auto) 0.03 K/uL (0.00-0.02) Activated Partial Thromboplast Time 29.0 SECONDS (21.0-31.0) Partial Thromboplastin Ratio 1.1 Anion Gap 8.0 mmol/L (3-11) Est Creatinine Clear Calc Drug Dose 12.1 ml/min Estimated GFR () 8.8 Estimated GFR (Non- 7.6 BUN/Creatinine Ratio 7.4 (10-20) Estimated Average Glucose 235 mg/dl Hemoglobin A1c 9.8 % (4.5-5.6) Calcium Level 8.4 mg/dl (8.5-10.1) Troponin I 0.142 ng/ml (0-0.045) Bedside Glucose 89 mg/dl (70-99) Urine Color YELLOW Urine Appearance CLOUDY (CLEAR) Urine pH 5.5 (4.5-7.5) Urine Specific [place] 1.029 (1.000-1.030) Urine Protein 4+ (NEG) Urine Glucose (UA) 2+ (NEG) Urine Ketones NEG (NEG) Urine Occult Blood TRACE (NEG) Urine Nitrite NEG (NEG) Urine Bilirubin NEG (NEG) Urine Urobilinogen NEG (NEG) Urine Leukocyte Esterase NEG (NEG) Urine WBC (Auto) 5-10 /hpf (0-5) Urine RBC (Auto) 5-10 /hpf (0-4) Urine Hyaline Casts (Auto) 5-10 /lpf (0-5) Urine Epithelial Cells (Auto) >30 /lpf (0-5) Urine Bacteria (Auto) NEG (NEG) Allergies Coded Allergies: No Known Allergies (Unverified , NKA, 01/20/17) Medications Current Inpatient Medications Medications (Trade) Dose Ordered Sig/Richie Route Start Time Stop Time Status Last Admin Dose Admin Ioversol (Optiray 320) 111 ml UD PRN IV 08/03/17 15:45 08/07/17 15:44 Heparin Sodium (Porcine) (Heparin Sq 5000 Unit/0.5ml) 5,000 unit Q8 SQ 08/03/17 22:00 09/02/17 21:59 08/04/17 06:13 5,000 UNIT Acetaminophen (Tylenol Tab) 650 mg Q4H PRN PO 08/03/17 18:15 09/02/17 18:14 Nitroglycerin (Nitrostat Tab) 0.4 mg UD PRN SL 08/03/17 18:15 09/02/17 18:14 Polyethylene (Miralax Powder Packet) 17 gm DAILY PRN PO 08/03/17 18:15 09/02/17 18:14 Ceftriaxone Sodium 1 gm/ Dextrose 50 ml @ 100 mls/hr Q24H IV 08/03/17 20:00 08/10/17 19:59 08/03/17 20:36 100 MLS/HR Doxycycline Hyclate 100 mg/ Dextrose 110 ml @ 50 mls/hr BID IV 08/03/17 21:00 08/10/17 20:59 08/04/17 07:59 50 MLS/HR Miscellaneous Information (Consult Glycemic Management Pharmacy) 1 ea UD PRN N/A 08/03/17 19:30 09/02/17 19:29 Aspirin (Ecotrin Tab) 81 mg QAM PO 08/04/17 09:00 09/03/17 08:59 Calcium Acetate (Phoslo Cap) 667 mg TIDM PO 08/04/17 08:00 09/03/17 07:59 Clonidine HCl (Catapres Tab) 0.1 mg QPM PO 08/03/17 21:00 09/02/17 20:59 08/03/17 22:37 0.1 MG Isosorbide Dinitrate (Isordil Tab) 5 mg BID@1100,2100 PO 08/03/17 21:00 09/02/17 20:59 08/03/17 22:37 5 MG Losartan Potassium (coZAAR TAB) 25 mg QPM PO 08/03/17 21:00 09/02/17 20:59 08/03/17 22:37 25 MG Metoprolol Succinate (Toprol Xl Tab) 25 mg QPM PO 08/03/17 21:00 09/02/17 20:59 08/03/17 22:37 25 MG Rosuvastatin Calcium (Crestor Tab) 40 mg QPM PO 08/03/17 21:00 09/02/17 20:59 08/03/17 22:37 40 MG Glucose (Glucose 40% Gel) 15-30 GRAMS 15 GRAMS... UD PRN PO 08/03/17 21:00 09/02/17 20:59 Glucose (Glucose Chew Tab) 4-8 Tablets 4 Tabl... UD PRN PO 08/03/17 21:00 09/02/17 20:59 Dextrose (Dextrose 50% 50ML Syringe) 25-50ML OF 50% DW IV FOR... UD PRN IV 08/03/17 21:00 09/02/17 20:59 08/03/17 23:40 25 ML Glucagon (Glucagon Inj) 1 mg UD PRN SQ 08/03/17 21:00 09/02/17 20:59 Insulin Aspart (novoLOG ASPART) SLIDING SCALE Q6 SC 08/04/17 06:00 09/03/17 05:59 Potassium Chloride/Sodium Chloride 1,000 ml @ 40 mls/hr Q24H IV 08/04/17 01:00 09/03/17 00:14 08/04/17 01:28 40 MLS/HR Epoetin Johnny (Procrit Inj) 10,000 units ONE IV 08/04/17 09:00 09/03/17 08:59 UNV Impression (1) ESRD on hemodialysis (2) Substernal precordial chest pain (3) CAD (coronary artery disease) 3.5 hrs, Qb 300, UF goal 3.5 kg.
--- NOTE | 2017-08-04 11:08 | Cardiology Consultation ---
Cardiology Consultation Date of Service Aug 04, 2017. Cardiology Consultation History: This is a 32-year-old type I diabetic, smoker, with end-stage renal disease on hemodialysis. The patient presented for evaluation regarding renal transplant and was found to have a dilated cardiomyopathy. He was started on guideline appropriate medications. He then underwent a cardiac catheterization to screen him for coronary artery disease and he was found to have severe 3 vessel disease. After some consideration, we felt it was surgical disease. Of note is that during the heart catheterization the LV gram indicated improvement in his overall LV function. He is scheduled to see cardiothoracic surgery inquiries [facility] tomorrow. The day before admission he stopped at [id number] and ate a couple hamburgers. Later on in the evening he had some indigestion but was able to go to bed. The morning of admission he woke up and had some pleuritic type discomfort in the right upper chest that he describes as a sticking feeling wonderful he takes a deep breath. He denies shortness of breath. His chest pain is not increased by activity. His troponins have been mildly elevated here after admission most likely due to his renal failure. His initial EKG showed a sinus rhythm with left ventricular hypertrophy with secondary ST and T wave changes. Allergies: No known medical allergies Current Inpatient Medications Medications (Trade) Dose Ordered Sig/Richie Route Start Time Stop Time Status Last Admin Dose Admin Ioversol (Optiray 320) 111 ml UD PRN IV 08/03/17 15:45 08/07/17 15:44 Heparin Sodium (Porcine) (Heparin Sq 5000 Unit/0.5ml) 5,000 unit Q8 SQ 08/03/17 22:00 09/02/17 21:59 08/04/17 06:13 5,000 UNIT Acetaminophen (Tylenol Tab) 650 mg Q4H PRN PO 08/03/17 18:15 09/02/17 18:14 Nitroglycerin (Nitrostat Tab) 0.4 mg UD PRN SL 08/03/17 18:15 09/02/17 18:14 Polyethylene (Miralax Powder Packet) 17 gm DAILY PRN PO 08/03/17 18:15 09/02/17 18:14 Ceftriaxone Sodium 1 gm/ Dextrose 50 ml @ 100 mls/hr Q24H IV 08/03/17 20:00 08/10/17 19:59 08/03/17 20:36 100 MLS/HR Doxycycline Hyclate 100 mg/ Dextrose 110 ml @ 50 mls/hr BID IV 08/03/17 21:00 08/10/17 20:59 08/04/17 07:59 50 MLS/HR Miscellaneous Information (Consult Glycemic Management Pharmacy) 1 ea UD PRN N/A 08/03/17 19:30 09/02/17 19:29 Aspirin (Ecotrin Tab) 81 mg QAM PO 08/04/17 09:00 09/03/17 08:59 Calcium Acetate (Phoslo Cap) 667 mg TIDM PO 08/04/17 08:00 09/03/17 07:59 Clonidine HCl (Catapres Tab) 0.1 mg QPM PO 08/03/17 21:00 09/02/17 20:59 08/03/17 22:37 0.1 MG Isosorbide Dinitrate (Isordil Tab) 5 mg BID@1100,2100 PO 08/03/17 21:00 09/02/17 20:59 08/03/17 22:37 5 MG Losartan Potassium (coZAAR TAB) 25 mg QPM PO 08/03/17 21:00 09/02/17 20:59 08/03/17 22:37 25 MG Metoprolol Succinate (Toprol Xl Tab) 25 mg QPM PO 08/03/17 21:00 09/02/17 20:59 08/03/17 22:37 25 MG Rosuvastatin Calcium (Crestor Tab) 40 mg QPM PO 08/03/17 21:00 09/02/17 20:59 08/03/17 22:37 40 MG Glucose (Glucose 40% Gel) 15-30 GRAMS 15 GRAMS... UD PRN PO 08/03/17 21:00 09/02/17 20:59 Glucose (Glucose Chew Tab) 4-8 Tablets 4 Tabl... UD PRN PO 08/03/17 21:00 09/02/17 20:59 Dextrose (Dextrose 50% 50ML Syringe) 25-50ML OF 50% DW IV FOR... UD PRN IV 08/03/17 21:00 09/02/17 20:59 08/03/17 23:40 25 ML Glucagon (Glucagon Inj) 1 mg UD PRN SQ 1/31/18 21:00 09/02/17 20:59 Insulin Aspart (novoLOG ASPART) SLIDING SCALE Q6 SC 08/04/17 06:00 09/03/17 05:59 Potassium Chloride/Sodium Chloride 1,000 ml @ 40 mls/hr Q24H IV 08/04/17 01:00 09/03/17 00:14 08/04/17 01:28 40 MLS/HR Epoetin Johnny (Procrit Inj) 10,000 units ONE IV 08/04/17 09:00 09/03/17 08:59 UNV Medical Problems: (1) Bilateral leg edema (2) Broken tooth (3) Cardiomyopathy (4) Chest pain (5) Dehydration (6) Dental caries (7) Diabetes (8) Dyslipidemia (9) Elevated IOP (10) ESRD on hemodialysis (11) Hyperglycemia (12) Hyperkalemia (13) Hypertension (14) Hypertensive emergency (15) Hypertensive Retinopathy, Left Eye (16) Leukocytosis (17) Odontalgia (18) Pain, dental (19) Post-op pain (20) Proteinuria (21) Renal insufficiency (22) Tooth pain with chewing (23) Visual disturbance Surgical Problems: (1) Fistula Social history: The patient continues to smoke cigarettes. He works at a local [employer]. Family medical history: Significant for diabetes Review of systems: The 10 point review of systems is negative except for the history of chief complaint. Last Vital Signs Documentation Date Time Temp Pulse Resp B/P (MAP) Pulse Ox O2 Delivery O2 Flow Rate FiO2 08/04/17 08:16 94 Room Air 08/04/17 08:16 36.8 78 16 163/87 (112) General Appearance: Alert and Oriented x3. NAD. Head: Normocephalic Atraumatic. Eyes: PERRLA, EOMI, conjunctiva and sclera clear Neck: Supple. No carotid bruits noted. No JVD. No HJD. Respiratory: Breath sounds clear to auscultation bilaterally. No w/r/r. Cardiovascular: Reg rate and rhythm. S1 and S2 noted. No murmurs, rubs, gallops. PMI non displace. Abdomen: Normal bowel sounds, soft nontender. no abdominal bruits. Extremities: No edema, no clubbing or cyanosis. distal pulses 2/4 bilaterally. He does have dialysis fistula Neuro: No focal deficits. Psychiatric: Normal affect. Last 24 Hours Test 08/03/17 15:08 08/03/17 15:31 08/03/17 19:10 08/03/17 19:38 White Blood Count 14.37 K/uL Red Blood Count 4.05 M/uL Hemoglobin 12.3 g/dL Hematocrit 36.2 % Mean Corpuscular Volume 89.4 fL Mean Corpuscular Hemoglobin 30.4 pg Mean Corpuscular Hemoglobin Concent 34.0 g/dl Platelet Count 371 K/uL Mean Platelet Volume 10.0 fL Neutrophils (%) (Auto) 76.6 % Lymphocytes (%) (Auto) 10.2 % Monocytes (%) (Auto) 7.0 % Eosinophils (%) (Auto) 5.3 % Basophils (%) (Auto) 0.6 % Neutrophils # (Auto) 11.02 K/uL Lymphocytes # (Auto) 1.46 K/uL Monocytes # (Auto) 1.00 K/uL Eosinophils # (Auto) 0.76 K/uL Basophils # (Auto) 0.09 K/uL RDW Standard Deviation 43.4 fL RDW Coefficient of Variation 13.3 % Immature Granulocyte % (Auto) 0.3 % Immature Granulocyte # (Auto) 0.04 K/uL Prothrombin Time 10.7 SECONDS Prothromb Time International Ratio 1.0 Activated Partial Thromboplast Time 28.2 SECONDS Partial Thromboplastin Ratio 1.1 Sodium Level 131 mmol/L Potassium Level 3.6 mmol/L Chloride Level 92 mmol/L Carbon Dioxide Level 27 mmol/L Anion Gap 12.0 mmol/L 18.0 mmol/L Blood Urea Nitrogen 55 mg/dl Creatinine 7.65 mg/dl Est Creatinine Clear Calc Drug Dose 13.2 ml/min Estimated GFR () 9.7 Estimated GFR (Non- 8.4 BUN/Creatinine Ratio 7.1 Random Glucose 325 mg/dl Calcium Level 9.0 mg/dl Total Creatine Kinase 116 U/L Creatine Kinase MB 7.0 ng/ml Creatine Kinase MB Ratio 6.0 Troponin I 0.183 ng/ml Beta-Hydroxybutyric Acid 3.50 mg/dL Bedside Hemoglobin 12.9 g/dl Bedside Hematocrit 38 % Bedside Sodium 135 mEq/L Bedside Potassium 3.6 mEq/L Bedside Chloride 92 mEq/L Bedside Total CO2 29 mEq/l Bedside Blood Urea Nitrogen 53 mg/dl Bedside Creatinine 8.0 mg/dl Bedside Glucose (other) 333 mg/dl Bedside Ionized Calcium (Rupali) 1.10 mmol/l Venous Blood pH 7.34 Venous Blood Partial Pressure CO2 48 mmHg Venous Blood Partial Pressure O2 45 mmHg Venous Blood HCO3 25 mmol/L Venous Blood Oxygen Saturation 79.2 % Venous Blood Base Excess -0.9 mEq/L Phosphorus Level 5.7 mg/dl Magnesium Level 2.2 mg/dl Bedside Glucose 166 mg/dl Test 08/03/17 21:41 08/03/17 22:07 08/03/17 23:23 08/03/17 23:56 Bedside Glucose 80 mg/dl 81 mg/dl 123 mg/dl Venous Blood pH 7.31 Venous Blood Partial Pressure CO2 55 mmHg Venous Blood Partial Pressure O2 29 mmHg Venous Blood HCO3 27 mmol/L Venous Blood Oxygen Saturation < 60.0 % Venous Blood Base Excess 0.4 mEq/L Sodium Level 134 mmol/L Potassium Level 3.1 mmol/L Chloride Level 94 mmol/L Carbon Dioxide Level 27 mmol/L Anion Gap 12.0 mmol/L Blood Urea Nitrogen 58 mg/dl Creatinine 7.86 mg/dl Est Creatinine Clear Calc Drug Dose 12.9 ml/min Estimated GFR () 9.4 Estimated GFR (Non- 8.1 BUN/Creatinine Ratio 7.4 Random Glucose 123 mg/dl Calcium Level 8.9 mg/dl Phosphorus Level 5.4 mg/dl Magnesium Level 2.3 mg/dl Troponin I 0.169 ng/ml Test 08/04/17 02:53 08/04/17 06:08 08/04/17 06:30 08/04/17 10:23 White Blood Count 11.19 K/uL Red Blood Count 3.29 M/uL Hemoglobin 9.9 g/dL Hematocrit 29.0 % Mean Corpuscular Volume 88.1 fL Mean Corpuscular Hemoglobin 30.1 pg Mean Corpuscular Hemoglobin Concent 34.1 g/dl Platelet Count 344 K/uL Mean Platelet Volume 9.3 fL Neutrophils (%) (Auto) 69.8 % Lymphocytes (%) (Auto) 17.5 % Monocytes (%) (Auto) 6.7 % Eosinophils (%) (Auto) 5.0 % Basophils (%) (Auto) 0.7 % Neutrophils # (Auto) 7.81 K/uL Lymphocytes # (Auto) 1.96 K/uL Monocytes # (Auto) 0.75 K/uL Eosinophils # (Auto) 0.56 K/uL Basophils # (Auto) 0.08 K/uL RDW Standard Deviation 43.1 fL RDW Coefficient of Variation 13.4 % Immature Granulocyte % (Auto) 0.3 % Immature Granulocyte # (Auto) 0.03 K/uL Activated Partial Thromboplast Time 29.0 SECONDS Partial Thromboplastin Ratio 1.1 Sodium Level 134 mmol/L Potassium Level 3.6 mmol/L Chloride Level 97 mmol/L Carbon Dioxide Level 29 mmol/L Anion Gap 8.0 mmol/L Blood Urea Nitrogen 61 mg/dl Creatinine 8.36 mg/dl Est Creatinine Clear Calc Drug Dose 12.1 ml/min Estimated GFR () 8.8 Estimated GFR (Non- 7.6 BUN/Creatinine Ratio 7.4 Random Glucose 97 mg/dl Estimated Average Glucose 235 mg/dl Hemoglobin A1c 9.8 % Calcium Level 8.4 mg/dl Troponin I 0.142 ng/ml Bedside Glucose 89 mg/dl Urine Color YELLOW Urine Appearance CLOUDY Urine pH 5.5 Urine Specific [place] 1.029 Urine Protein 4+ Urine Glucose (UA) 2+ Urine Ketones NEG Urine Occult Blood TRACE Urine Nitrite NEG Urine Bilirubin NEG Urine Urobilinogen NEG Urine Leukocyte Esterase NEG Urine WBC (Auto) 5-10 /hpf Urine RBC (Auto) 5-10 /hpf Urine Hyaline Casts (Auto) 5-10 /lpf Urine Epithelial Cells (Auto) >30 /lpf Urine Bacteria (Auto) NEG Impression: 1. Severe arteriosclerotic vascular disease 2. Recent cardiac catheterization showing severe coronary artery disease with recommendation for coronary artery bypass 3. End-stage kidney disease on hemodialysis 4. Cigarette smoking 5. Type 1 diabetes Recommendations: The patient is to have dialysis today. I think his chest pain is atypical. If he does well on dialysis at believe he may be discharged. It should be noted, the patient has an appointment with cardiothoracic surgery at [facility] tomorrow. It would be in his benefit if he could keep that appointment.
[2017-08-04] MEDS ORDERED: NURSING VERBAL MED ORDER ONE (12:15)
--- NOTE | 2017-08-04 12:43 | Pharmacy Progress Note ---
Glycemic Control Intl Consult Date of Service Aug 04, 2017. Scope Glycemic Pharmacist consulted by Maureen Herman PA-C on 08/03/17 for glycemic control and to write orders per [facility] inpatient glycemic control protocol Objective Weight (Kilograms): 68.200 Accuchecks BSG (last 24hrs): Test 08/03/17 15:08 08/03/17 19:38 08/03/17 21:41 08/03/17 22:07 Random Glucose 325 mg/dl (70-99) 123 mg/dl (70-99) Bedside Glucose 166 mg/dl (70-99) 80 mg/dl (70-99) Test 08/03/17 22:11 08/03/17 23:23 08/03/17 23:56 08/04/17 02:53 Bedside Glucose 142 mg/dl (70-99) 81 mg/dl (70-99) 123 mg/dl (70-99) Random Glucose 97 mg/dl (70-99) Test 08/04/17 06:08 08/04/17 11:29 Bedside Glucose 89 mg/dl (70-99) 78 mg/dl (70-99) Laboratory Data (last 24hrs) Test 08/03/17 15:08 08/03/17 15:31 08/03/17 22:07 08/04/17 02:53 Anion Gap 12.0 mmol/L 18.0 mmol/L 12.0 mmol/L 8.0 mmol/L BUN/Creatinine Ratio 7.1 7.4 7.4 Blood Urea Nitrogen 55 mg/dl 58 mg/dl 61 mg/dl Creatinine 7.65 mg/dl 7.86 mg/dl 8.36 mg/dl Potassium Level 3.6 mmol/L 3.1 mmol/L 3.6 mmol/L Sodium Level 131 mmol/L 134 mmol/L 134 mmol/L White Blood Count 14.37 K/uL 11.19 K/uL Red Blood Count 4.05 M/uL 3.29 M/uL Hemoglobin 12.3 g/dL 9.9 g/dL Hematocrit 36.2 % 29.0 % Mean Corpuscular Volume 89.4 fL 88.1 fL Mean Corpuscular Hemoglobin 30.4 pg 30.1 pg Mean Corpuscular Hemoglobin Concent 34.0 g/dl 34.1 g/dl Platelet Count 371 K/uL 344 K/uL Mean Platelet Volume 10.0 fL 9.3 fL Neutrophils (%) (Auto) 76.6 % 69.8 % Lymphocytes (%) (Auto) 10.2 % 17.5 % Monocytes (%) (Auto) 7.0 % 6.7 % Eosinophils (%) (Auto) 5.3 % 5.0 % Basophils (%) (Auto) 0.6 % 0.7 % Neutrophils # (Auto) 11.02 K/uL 7.81 K/uL Lymphocytes # (Auto) 1.46 K/uL 1.96 K/uL Monocytes # (Auto) 1.00 K/uL 0.75 K/uL Eosinophils # (Auto) 0.76 K/uL 0.56 K/uL Basophils # (Auto) 0.09 K/uL 0.08 K/uL Hemoglobin A1c 9.8 % HbA1c Test 08/04/17 02:53 Hemoglobin A1c 9.8 % (4.5-5.6) H Recent Pertinent Medications Outpatient Anti-diabetic Regimen: * Lantus 20 units SQ QAM; Novolog TID meals sliding scale - pt is non-compliant * A1c = 9.8 % - unreliable- ESRD on HD MWF The patient is currently receiving: * Basal insulin: Lantus 10 units x 1 dose last night * Insulin drip for a few hours upon admission for BSG in 300s Risk Factors for Insulin Resistance: * Steroids: * Infection: * Pressors: * IVF: D51/2NS@ 30cc/hr - changed to NS+20K@40cc/hr * Diet: NPO --> changed to type 2 DM diet this afternoon Assessment & Plan ASSESSMENT: * 32 year old male type 1 diabetic, noncompliant, ESRD on HD MWF, admitted yesterday with CP, elevated troponin, and hyperglycemia * Insulin drip initiated and Lantus dose given, NPO, BSGs at goal * Diet to resume this afternoon, pt requires CF CR and possibly a Lantus dose tonight based on BSGs PLAN FOR INPATIENT GLYCEMIC CONTROL: * Basal insulin with LANTUS SQ HS * 0 units for BSG < 120mg/dl * 10 units BSG 120-180mg/dl * 15 units BSG > 180mg/dl * Correctional Insulin with NOVOLOG per scale ACHS or Q6hrs while NPO * Goal Range: Low 120 mg/dL - High 160 mg/dL * Correction Factor: 35 mg/dL/unit * Nutritional / Prandial insulin per carb ratio of 1 unit per 15 grams CHO consumed * Please note that the plan above was derived based on current level of insulin resistance and hospital stress. These recommendations are appropriate for inpatient admission only. Plan of care upon discharge will need to be reassessed to avoid potential outpatient hypo/hyperglycemia. Thank you.
[2017-08-04] MEDS ORDERED: INSULIN ASPART 100 UNITS/ML 3 ML PEN SC SCH (16:30)
[2017-08-04] MEDS ORDERED: NTRSLP4 SL (18:28)
[2017-08-04] MEDS ORDERED: DOXY-300 PO (18:28)
--- NOTE | 2017-08-04 18:36 | Discharge Instructions ---
Discharge Instructions Date of Service Aug 04, 2017. Admission Reason for Admission: Chest Pain; Leukocytosis Discharge Discharge Diagnosis / Problem: Chest pain, Diabetis Ketoacidosis, ESRD ON HD Discharge Goals Goal(s): Decrease discomfort, Improve function, Improve disease control Activity Recommendations Activity Limitations: resume your previous activity (as tolerated) . Instructions / Follow-Up Instructions / Follow-Up Follow up with your primary care provider Dr. Zambrano on 08/09 @ 1:05 pm Follow up with the cardiothoracic surgery tomorrow at [facility] Follow up with your Nephrology Next dialysis is tomorrow Monitor blood sugar and bring your blood sugar log at your next appointment with your physician Follow a healthy diabetes diet Complete course of doxycycline Seek medical attention if chest pain reoccurs or persists. Current Hospital Diet Patient's current hospital diet: Diabetes Type 2 Diet, Renal Diet Discharge Diet Recommended Diet: Diabetes Type 1 Diet, Renal Diet Pending Studies Studies pending at discharge: no Laboratory Results Hemoglobin A1c Test 08/04/17 02:53 Range/Units Estimated Average Glucose 235 mg/dl Hemoglobin A1c 9.8 H 4.5-5.6 % Medical Emergencies . Who to Call and When: Medical Emergencies: If at any time you feel your situation is an emergency, please call 911 immediately. . Non-Emergent Contact Non-Emergency issues call your: Primary Care Provider, Air Pollution Specialist Call Non-Emergent contact if: you have a fever, your pain is not controlled, you have any medication questions . . "Provider Documentation" section prepared by Tyler Parker. . VTE Core Measure Inpt VTE Proph given/why not?: Unfractionated heparin SQ
--- NOTE | 2017-08-04 18:46 | Discharge Summary ---
Discharge Summary Date of Service Aug 04, 2017. Discharge Summary Admission Date: Aug 03, 2017 at 18:18 Discharge Date: Aug 04, 2017 Discharge Disposition: Home Principal Diagnosis: Pleuritic Chest Pain Secondary Diagnoses/Problems: ESRD ON HD LEUKOCYTOSIS CAP TOBACCO ABUSE DKA DM TYPE 1- UNCONTROLLED PLEURAL EFFUSION HTN DYSLIPIDEMIA Procedures: [~ rep ct add3]] CT ANGIOGRAM OF THE CHEST CLINICAL HISTORY: Pleuritic chest pain. COMPARISON STUDY: Chest x-ray dated 08/03/2017. TECHNIQUE: Following the IV administration of 101 cc of Optiray 320, CT angiogram of the chest was performed from the upper abdomen to the thoracic inlet utilizing the pulmonary embolus protocol. Images are reviewed in the axial, sagittal, and coronal planes. 3-D MIPS images are created and assessed. IV contrast was administered without complication. The patient is a dialysis patient with elevated serum creatinine. The patient was scanned emergently as deemed medically necessary by the referring clinician. A dose lowering technique was utilized adhering to the principles of ALARA. CT DOSE: 370.19 mGycm FINDINGS: Thyroid: Imaged portions of the thyroid gland are normal in size and attenuation. Thoracic aorta: The thoracic aorta is normal in caliber and demonstrates bovine variant arch anatomy. No dissection is seen. Pulmonary vasculature: The pulmonary trunk is dilated, measuring 3.0 cm in diameter. This suggests pulmonary artery hypertension. There are no filling defects identified in main, lobar, or segmental pulmonary branches to suggest pulmonary embolus. Heart: The heart is enlarged and without pericardial effusion. The coronary arteries are densely calcified. Lungs and pleural spaces: Evaluation of the lung parenchyma is modestly degraded by motion artifact. There are large right and [id number] left pleural effusions with associated consolidation. Fluid is noted along the right major fissure. Mild emphysematous change is suspected. The trachea and central airways are patent. Mediastinum: There is no mediastinal lymphadenopathy. Marina: Clear. Axillae: There is no axillary lymphadenopathy. Upper abdomen: Partially visualized upper abdominal viscera is within normal limits. Skeletal structures: No lytic or blastic bony lesions are seen. IMPRESSION: 1. There is no evidence of pulmonary embolus in the main, lobar, or segmental pulmonary arteries. 2. Cardiomegaly. 3. Large right and small to moderate left pleural effusions with associated bibasilar consolidation. This likely represents atelectasis. Correlate clinically for evidence of superimposed pneumonia. 4. Additional findings as above. Electronically signed by: Wang Dickens M.D. 08/03/2017 4:25 PM Dictated Date/Time: 08/03/2017 4:21 PM [~ rep ct add3]] CHEST ONE VIEW PORTABLE CLINICAL HISTORY: Atypical chest pain COMPARISON STUDY: 08/21/2016 FINDINGS: The heart is mildly enlarged. There are small bilateral pleural effusions with associated bibasal airspace opacities. The upper lung zones appear clear. There is no overt failure.[ IMPRESSION: Small bilateral pleural effusions with associated bibasal airspace opacities Electronically signed by: Jack Hernandez M.D. 08/03/2017 3:30 PM Dictated Date/Time: 08/03/2017 3:29 PM Consultations: cardio Nephrology Medication Reconciliation New Medications: Doxycycline (Monohydrate) (Doxycycline) 100 Mg Cap 1 TAB PO BID for 5 Days Nitroglycerin (Nitrostat) 0.4 Mg/1 Tab Subl 0.4 MG SL UD PRN for Chest Pain, #20 Continued Medications: Bumetanide (Bumex) 1 Mg Tab 2 MG PO DAILY, TAB Pt rx 4 tab po BID, pt taking it differently Calcium Acetate (Phoslo 667 Mg) 667 Mg Cap 1 CAP PO TIDM, CAP Clonidine Hcl (Catapres) 0.1 Mg Tab 0.1 MG PO QPM, TAB Ergocalciferol (Vitamin D 44051 Unit) 50,000 Unit Cap 1 CAP PO UD for 28 Days, #4 CAP 5 Refills Mon, Wed, Fri during dialysis Glucose-Vitamin C-Vitamin D (Trueplus Glucose) 1 Chw Chw 1 TAB PO PRN Insulin Aspart (Novolog) 100 Units/Ml Inj SQ TIDM per sliding scale Insulin Glargine (Lantus Solostar) 100 Unit/Ml Inj 20 UNITS SC QPM, PEN Isosorbide Dinitrate (Isordil) 5 Mg Tab 5 MG PO BID, TAB Losartan Potassium (Cozaar) 25 Mg Tab 25 MG PO QPM for 30 Days, TAB 5 Refills Metoprolol Succ (Toprol Xl) (Toprol-Xl) 25 Mg Tabcr 25 MG PO QPM, #30 TAB Rosuvastatin Calcium (Rosuvastatin Calcium) 40 Mg Tab 40 MG PO QPM Admission Information HPI (per Admitting provider): Pt is 32 y/o M with PMH DM I, HTN, dyslipidemia, ESRD on HD on MWF, cardiomyopathy, CAD presented to ER with c/o CP. Pt states this morning woke up around 0600 with central chest pressure. Pain is sharp with cough and deep inspiration. He states yesterday ate couple hamburgers from [employer] and later that evening had heartburn. No prior treatment. States yesterday had non- productive cough, and reports seems improved today. Denies injury to chest or heavy lifting. Reports chronic exertional dyspnea, denies any changes or worsening. Intermittent orthopnea, pt states hasn't been problem for "awhile". Pt had cardiac cath by Dr Carballo on 07/28/17 with LAD 100% occlusion, RCA 50-70% stenosis, LV function preserved with hypokinesis of distal anterior myocardium. Plan was to continue to treat medically at that time. Hx echo 84: EF: 20- 24%, apical inferior & apical septum are akinetic. Pt follows with Dr Khan - nephrology [facility] [place]. Pt did not go to dialysis today. Pt is non-compliant with his insulin. He thinks checked BS yesterday and was 280. Hasn't used his NovoLog today, thinks used it yesterday. He states he used Lantus last evening. Denies fever/chills, diaphoresis, N/V/D/C, BERRY, dizziness, syncope, vision changes, neck pain, palpitations, hemoptysis, sore throat, choking, otalgia, rhinorrhea, abdominal pain, paresthesias, weakness, extremity edema. In ER vitals stable, afebrile. WBC: 14. Gluc: 325. Troponin: 0.183, beta- hydroxybutyric acid: 3.5, anion gap: 12. he had CTA chest negative for PE, bilateral pleural effusions, bibasilar consolidation -likely atelectasis vs superimposed pneumonia. He was given ASA, nitro x 2. Pt feels helped decrease CP. States now only has pain with palpation or deep inspiration. Physical Exam (per Admitting): General Appearance: WD/WN, no apparent distress Head: normocephalic, atraumatic Eyes: normal inspection, PERRL, EOMI, sclerae normal ENT: hearing grossly normal, pharynx normal, + pertinent finding (mucous membranes moist) Neck: supple, no JVD, trachea midline Respiratory/Chest: no respiratory distress, no accessory muscle use, + decreased breath sounds (bases bilaterally. chest with mild tenderness to palpation right mid chest) Cardiovascular: regular rate, rhythm, normal peripheral pulses Abdomen/GI: normal bowel sounds, non tender, soft Extremities/Musculoskelatal: no calf tenderness, no pedal edema, normal range of motion, non-tender Neurologic/Psych: alert, normal mood/affect, oriented x 3 Skin: normal color, warm/dry Hospital Course CHEST PAIN Pleuritic in nature, but need to r/o ACS due to significant risks. Risk factors: HTN, hyperlipidemia, uncontrolled DM, ESRD on HD Recent cardiac cath on 07/28 showed complete LAD occlusion and RCA 50-70% stenosis-recommendation for coronary artery bypass CTA chest no evidence of pulmonary embolus in the main, lobar, or segmental pulmonary arteries. Troponin on Admission mildly elevated and trending down Continue Asa, metoprolol and statin Case discussed with Cardiology that ok to discharge home today since pt had an appointment tomorrow Appointment with cardiothoracic surgery at [facility] tomorrow. Advised pt to seek medical attention if chest pain reoccurs or persists DKA No complaint/uncontrolled DM Anion Gap was 18 and now closed Continue monitor electrolytes pharmacy on board for glycemic management PLEURAL EFFUSION CTA chest showed large right and small to moderate left pleural effusions with associated bibasilar consolidation. Will get HD today Denies any dyspnea continue monitor DM TYPE 1 Non compliant Hba1c 9.8 continue monitor BS Pharmacy on board for glycemic management LEUKOCYTOSIS Possible CAP CXR showed mall bilateral pleural effusions with associated bibasal airspace opacities WBC on admission 14, WBC Trending down Afebrile On Doxy and rocephin TOBACCO ABUSE Counseling on smoking cessation ESRD on HD MWF schedule. Missed HD yesterday, will get HD today Nephrology on board case discussed with Nephro recommended pt to resume his regular HD tomorrow HTN Stable at this time On isosorbide, clonidine, losartan, metoprolol HYPERLIPIDEMIA Continue rosuvastatin DVT PROPHYLAXIS On heparin SQ CODE STATUS FULL CODE Total time spent on discharge = 35 minutes This includes examination of the patient, discharge planning, medication reconciliation, and communication with other providers. Discharge Instructions Discharge Instructions Date of Service Aug 04, 2017. Admission Reason for Admission: Chest Pain; Leukocytosis Discharge Discharge Diagnosis / Problem: Chest pain, Diabetis Ketoacidosis, ESRD ON HD Discharge Goals Goal(s): Decrease discomfort, Improve function, Improve disease control Activity Recommendations Activity Limitations: resume your previous activity (as tolerated) . Instructions / Follow-Up Instructions / Follow-Up Follow up with your primary care provider Dr. Zambrano on 08/09 @ 1:05 pm Follow up with the cardiothoracic surgery tomorrow at [facility] Follow up with your Nephrology Next dialysis is tomorrow Monitor blood sugar and bring your blood sugar log at your next appointment with your physician Follow a healthy diabetes diet Complete course of doxycycline Seek medical attention if chest pain reoccurs or persists. Current Hospital Diet Patient's current hospital diet: Diabetes Type 2 Diet, Renal Diet Discharge Diet Recommended Diet: Diabetes Type 1 Diet, Renal Diet Pending Studies Studies pending at discharge: no Laboratory Results Hemoglobin A1c Test 08/04/17 02:53 Range/Units Estimated Average Glucose 235 mg/dl Hemoglobin A1c 9.8 H 4.5-5.6 % Medical Emergencies . Who to Call and When: Medical Emergencies: If at any time you feel your situation is an emergency, please call 911 immediately. . Non-Emergent Contact Non-Emergency issues call your: Primary Care Provider, [facility] Call Non-Emergent contact if: you have a fever, your pain is not controlled, you have any medication questions . . "Provider Documentation" section prepared by Tyler Parker. . VTE Core Measure Inpt VTE Proph given/why not?: Unfractionated heparin SQ Signed: Signed: The status of this report is Draft * If report status is Draft, the document has not been finalized by the responsible provider. Additional Copies To Merna Zambrano M.D. (MEDICAL)
[2017-08-04] MEDS ORDERED: INSULIN GLARGINE SOLOSTAR 100 UNITS/ML 3 ML PEN SC SCH (21:00)
== END 2017-08-04 19:13 | disposition home or self-care (01) | DRG 313 ==
LOC: C.EDB 14:41 → C.MED 18:18 → ENRESERV 18:56
PROVIDERS: ADMIT Family Medicine; ATTEND Internal Medicine
DX: R07.2 Precordial pain (principal); E10.10 Type 1 diabetes mellitus with ketoacidosis without coma; N18.6 End stage renal disease; J18.9 Pneumonia, unspecified organism; I12.0 Hypertensive chronic kidney disease with stage 5 chronic kidney disease or end stage renal disease; J90 Pleural effusion, not elsewhere classified; I25.5 Ischemic cardiomyopathy; D64.9 Anemia, unspecified; E10.22 Type 1 diabetes mellitus with diabetic chronic kidney disease; E10.65 Type 1 diabetes mellitus with hyperglycemia; E78.5 Hyperlipidemia, unspecified; I25.10 Atherosclerotic heart disease of native coronary artery without angina pectoris; K21.9 Gastro-esophageal reflux disease without esophagitis; F17.210 Nicotine dependence, cigarettes, uncomplicated; Z79.4 Long term (current) use of insulin; Z79.899 Other long term (current) drug therapy; Z99.2 Dependence on renal dialysis

== ENCOUNTER 2017-11-18 19:19 | Emergency (ER) | payer OTHER ==
[~2017-11-18] VITALS: Ht 88.9 cm; Wt 52.1 kg
[~2017-11-18 19:19] MED LIST changes: +DOXY-300 PO; +NTRSLP4 SL; +NVLG SQ
[2017-11-18 19:23] VITALS: BP 135/80; TEMP 36.5; Ht 88.9 cm; Wt 52.1 kg
--- NOTE | 2017-11-18 19:54 | EMERGENCY ROOM VISIT NOTE ---
ED Visit Note First contact with patient: 19:27 Staff note: I have reviewed the Patients chart and have discussed this case with my PA. I generally agree with the ED note and findings.
[2017-11-18] MEDS ORDERED: AMOXICILLIN 500 MG CAP PO STA (20:00)
[2017-11-18] MEDS ORDERED: AMOX500T3 PO (20:10)
--- NOTE | 2017-11-18 20:14 | EMERGENCY ROOM VISIT NOTE ---
History First contact with patient: 19:27 Chief Complaint: DENTAL PAIN Stated Complaint: INFECTED TOOTH Nursing Triage Summary: Pt has had a broken tooth for months. Today pt having pain. Pt sent up from dialysis. History of Present Illness The patient is a 32 year old male who presents to the Emergency Room with complaints of dental pain. The patient states that his left upper front tooth has been broken off for months. Today, the patient developed pain in the tooth. He describes this as an aching, throbbing pain and rates the discomfort a 6/10. He states that the pain radiates into his cheek. The patient has end- stage renal disease on hemodialysis. He receives dialysis Tuesday, Tuesday and Tuesday. He did recently have cardiac bypass surgery and states that he was told to come here by his dialysis nurse to be put on antibiotics so he does not develop an infection. He denies any fevers or facial swelling. Review of Systems A complete 10 point review of systems was reviewed with the patient with pertinent positives and negatives as per history of present illness. All else were negative. Past Medical/Surgical History Medical Problems: (1) Bilateral leg edema (2) Broken tooth (3) Cardiomyopathy (4) Chest pain (5) Dehydration (6) Dental caries (7) Diabetes (8) Dyslipidemia (9) Elevated IOP (10) ESRD on hemodialysis (11) Hyperglycemia (12) Hyperkalemia (13) Hypertension (14) Hypertensive emergency (15) Hypertensive Retinopathy, Left Eye (16) Leukocytosis (17) Odontalgia (18) Pain, dental (19) Post-op pain (20) Proteinuria (21) Renal insufficiency (22) Tooth pain with chewing (23) Visual disturbance Surgical Problems: (1) Fistula Family History Diabetes mellitus FH: kidney disease Heart disease Hypertension Kidney stones Social History Smoking Status: Current Every Day Smoker Alcohol Use: none Drug Use: none Marital Status: single Housing Status: lives with family Occupation Status: unemployed Current/Historical Medications Scheduled Amoxicillin (Amoxil), 500 MG PO DAILY Bumetanide (Bumex), 2 MG PO DAILY Calcium Acetate (Phoslo 667 Mg), 1 CAP PO TIDM Clonidine Hcl (Catapres), 0.1 MG PO QPM Doxycycline (Monohydrate) (Doxycycline), 1 TAB PO BID Ergocalciferol (Vitamin D 75797 Unit), 1 CAP PO UD Glucose-Vitamin C-Vitamin D (Trueplus Glucose), 1 TAB PO PRN Insulin Aspart (Novolog), SQ TIDM Insulin Glargine (Lantus Solostar), 20 UNITS SC QPM Isosorbide Dinitrate (Isordil), 5 MG PO BID Losartan Potassium (Cozaar), 25 MG PO QPM Metoprolol Succ (Toprol Xl) (Toprol-Xl), 25 MG PO QPM Rosuvastatin Calcium (Rosuvastatin Calcium), 40 MG PO QPM Scheduled PRN Nitroglycerin (Nitrostat), 0.4 MG SL UD PRN for Chest Pain Physical Exam Vital Signs Date Time Temp Pulse Resp B/P (MAP) Pulse Ox O2 Delivery O2 Flow Rate FiO2 11/18/17 20:37 78 99 11/18/17 19:23 36.5 90 16 135/80 99 Room Air Physical Exam VITALS: Vitals are noted on the nurse's note and reviewed by myself. Vital signs stable. GENERAL: This is a 32-year-old male, thin, chronically ill-appearing. SKIN: The skin was without rashes. EARS: External auditory canals clear, tympanic membranes pearly negron without erythema or effusion bilaterally. EYES: Pupils equal round and reactive to light and accommodation. MOUTH: Mucous membranes moist. Very poor dentition noted. The left upper lateral incisor is broken partway off with significant caries. There is no significant swelling of the gums or face. No drainage from the tooth. NECK: Supple without nuchal rigidity. No lymphadenopathy. HEART: Regular rate and rhythm without murmurs gallops or rubs. LUNGS: Clear to auscultation bilaterally without wheezes, rales or rhonchi. NEURO: Patient was alert and oriented to person place and time. Medical Decision & Procedures Medications Administered Medications (Trade) Dose Ordered Sig/Richie Route Start Time Stop Time Status Last Admin Dose Admin Amoxicillin (Amoxil Cap) 500 mg NOW STAT PO 11/18/17 20:00 11/18/17 20:03 DC 11/18/17 20:33 500 MG Medical Decision Differential diagnosis includes periapical abscess, dental abscess, facial cellulitis, Jamshid's angina, among others. The patient was evaluated as above. He presents with dental pain. The patient has end-stage renal disease on hemodialysis. I did speak with the pharmacist regarding choice of antibiotics. They recommended amoxicillin, 500 mg daily. Patient has a dentist appointment scheduled next week for follow-up. He was advised to return here with any facial swelling or fevers. He verbalized understanding of my assessment and treatment plan and was discharged home in good condition. Medication Reconcilliation Current Medication List: was personally reviewed by me Blood Pressure Screening Patient's blood pressure: Normal blood pressure Impression Primary Impression: Dentalgia Departure Information Dispostion Home / Self-Care Condition GOOD Prescriptions Amoxicillin (AMOXIL) 500 Mg Tab 500 MG PO DAILY for 9 Days, #9 TAB Prov: Sari Mac ., MARIELA 11/18/17 Referrals No Doctor, Assigned (PCP) Patient Instructions [facility] Additional Instructions You have been treated in the Emergency Department for Dental Pain. You were prescribed Amoxicillin to be taken daily as prescribed. This is an antibiotic. All antibiotics have the potential to cause diarrhea. Stop this medication and contact a medical provider if you were to develop any significant adverse side effects including: wheezing, shortness of breath, passing out, vomiting, or a diffuse rash. Always take antibiotics as directed and COMPLETE the ENTIRE course regardless of the improvement of your symptoms. Refrain from smoking cigarettes or using chewing tobacco until you have been evaluated by your dentist. Keeping beverages lukewarm and consuming soft foods can decrease your pain. Warm compresses over the affected area may offer some relief. You MUST seek evaluation of your dental pain by a dentist following your visit to the Emergency Department. The Emergency Department is not capable of treating dental issues long-term. You should call your dentist as soon as possible to make an appointment for evaluation of your dental pain. Return to the emergency department if you develop the following symptoms despite treatment course outlined above: fever, intractable pain, increased redness, swelling, or purulent discharge.
[2017-11-18 20:37] VITALS: PULSE 78; O2SAT 99
== END 2017-11-18 20:38 | disposition home or self-care (01) ==
LOC: C.EDB 19:20 → C.EDD 20:38
DX: K08.89 Other specified disorders of teeth and supporting structures (principal); E11.9 Type 2 diabetes mellitus without complications; E78.5 Hyperlipidemia, unspecified; I10 Essential (primary) hypertension; R73.9 Hyperglycemia, unspecified; E87.5 Hyperkalemia; F17.200 Nicotine dependence, unspecified, uncomplicated; Z79.4 Long term (current) use of insulin

== ENCOUNTER 2019-03-10 08:08 | Inpatient (IN) ==
[2019-03-10] MEDS ORDERED: GELATIN SPONGE 12-7MM EXT ONE (08:42)
[2019-03-10 09:08] LABS: Hematocrit (blood only) 20.4 % (42-52); Hemoglobin 6.9 g/dL (14.0-18.0); Mean Corpuscular Hgb Conc 33.8 g/dL (32-36); Mean Corpuscular Volume 89.1 fL (80-100); Mean Platelet Volume 10.6 fL (7.4-10.4); Platelet Count 194 K/uL (130-400); RDW Coefficient of Variation 14.5 % (11.5-14.5); RDW Standard Deviation 47.6 fL (36.4-46.3); Red Blood Count 2.29 M/uL (4.7-6.1); White Blood Count 8.96 K/uL (4.8-10.8)
[2019-03-10] MEDS ORDERED: SURGICEL FIBRILLAR HEMOSTAT 1 X 2IN TOP ONE (09:12)
[2019-03-10] MEDS ORDERED: STERILE PO SCH (09:15)
[2019-03-10] MEDS ORDERED: WATER PO SCH (09:15)
[2019-03-10] MEDS ORDERED: AMINOCAPROIC ACID PO SCH (09:15)
[2019-03-10 09:18] LABS: BUN Creatinine Ratio 10.5 (10-20); Calcium 8.2 mg/dl (8.5-10.1); Creatinine Clr Calc Pharmacy 10.5 ml/min; Est GFR (African American) 7.7; Est GFR (Non-African American) 6.6; Potassium 5.5 mmol/L (3.5-5.1)
[2019-03-10] MEDS ORDERED: INSULIN HUMAN REGULAR PER UNIT 5 UNITS in SYRINGE 9.9 ML IV STA (09:20)
[2019-03-10] MEDS ORDERED: SODIUM CHLORIDE 0.9% 250 ML IV PRN (09:20)
[2019-03-10] MEDS ORDERED: CALCIUM GLUCONATE 10% 1,000 MG in SODIUM CHLORIDE 0.9% 50 ML IV STA (09:20)
[2019-03-10] MEDS ORDERED: SODIUM BICARB 8.4% INJ 50 MEQ/50 ML SYR IV STA (09:24)
[2019-03-10] MEDS ORDERED: NovoLIN-R INSULIN PER UNIT CHARGE ONE (09:30)
[2019-03-10] MEDS ORDERED: CALCIUM GLUCONATE 10% 10 ML VIAL IV ONE (09:30)
[2019-03-10 09:52] LABS: ALC (manual) 1.48 K/uL (1.2-3.4); Basophils # (manual) 0.08 K/uL (0-0.2); Basophils % (manual) 0.9 %; Beta-Hydroxybutyrate 0.82 mg/dl (0.2-2.81); Eosinophils # (manual) 0.31 K/uL (0-0.5); Eosinophils % (manual) 3.5 %; Lymphocytes # (manual) 1.48 K/uL (1.2-3.4); Lymphocytes % (manual) 16.5 %; Monocytes # (manual) 0.23 K/uL (0.11-0.59); Monocytes % (manual) 2.6 %; Neutrophils % (manual) 76.5 %; RBC Morphology Unremarkable
[2019-03-10] MEDS ORDERED: SODIUM CHLORIDE 0.9% 1000ML 1,000 ML IV PRN (09:58)
--- NOTE | 2019-03-10 10:31 | Nephrology Consultation ---
Date of Consultation March 10, 2019 Assessment & Plan (1) ESRD on hemodialysis: 33-year-old he end-stage renal disease on hemodialysis admitted with anemia secondary to bleeding after a tooth extraction. Ms. dialysis currently has significant electrolyte abnormality, sodium 127 potassium 5.5. Volume status and blood pressure acceptable. -- schedule for emergency dialysis for 4 hours with 2K bath. --transfuse 2 units of PRBC during hemodialysis --Once bleeding stops and patient starts p.o., have to resume phosphate binder --give Epogen 76901 units x1 dose during dialysis --dose medications for GFR less than 10 Will Follow Thank you for allowing me to participate in your patient's care. It was a pleasure to see Yariel (2) Anemia: (3) Hyperkalemia: (4) Surgical wound hemorrhage after dental procedure: History of Present Illness Reason for Consultation: ESRD on HD, missed dialysis, hyperkalemia History of Present Illness Km Rebolledo is a 33 year old gentlemen with past medical history significant for end-stage renal disease on hemodialysis, hypertension, diabetes, ischemic cardiomyopathy, S/P CABG admitted to the hospital with anemia and active gum bleeding after recent tooth extraction. Nephrology consult was requested as he missed dialysis yesterday and now has critical electrolyte abnormality and need for emergency dialysis. Electronic medical records including labs and imaging reviewed in detail during patient's visit. Yariel had extraction of all teeth on 03/08/19 and he has been having active bleeding since then, he was told by his surgeon to continue to monitor and if bleeding does not stop to come to ER. As bleeding continued he came to ER this morning and found to have hemoglobin of 6.9 dropped from 10.5 a month ago. As he was overall feeling poorly, with active bleeding, he missed dialysis yesterday. Today his blood pressure well controlled, volume status is acceptable however his potassium was 5.5, and has hyponatremia with sodium 127. Has end-stage disease setting hypertension, diabetes and coronary artery disease. Has been on dialysis on MWF via left BC AV fistula. Has been pretty noncompliant with dialysis, frequently missing treatments and coming with volume overload and elevated blood pressure. His His past medical history significant for hypertension, diabetes, ischemic cardiomyopathy. He denies SOB or chest pain. Not able to eat For last few days however he has been trying to keep up with liquid intake for nutrition. Allergies Allergy/AdvReac Type Severity Reaction Status Date / Time No Known Allergies Allergy NKA Verified 03/10/19 10:30 Home Medications Home Medications Medication Instructions Recorded Confirmed Type amlodipine 10 mg PO HS 11/08/18 01/19/19 History calcium acetate 2 cap PO TIDM 11/08/18 01/19/19 History calcium acetate 2 cap PO UD PRN 11/08/18 01/19/19 History clonidine HCl 0.1 mg PO BID 11/08/18 01/19/19 History insulin glargine [Lantus U-100 20 unit SUBCUT HS 11/08/18 01/19/19 History Insulin] insulin lispro [Humalog U-100 0 unit SUBCUT TIDM 11/08/18 01/19/19 History Insulin] losartan 100 mg PO HS 11/08/18 01/19/19 History metoprolol succinate 100 mg PO BID 11/08/18 01/19/19 History rosuvastatin 40 mg PO HS 11/08/18 01/19/19 History amoxicillin 500 mg PO Q8H 03/10/19 03/10/19 History hydrocodone-acetaminophen Q8 PRN MDD 7 day dose 03/10/19 History isosorbide mononitrate 60 mg PO QAM 03/10/19 03/10/19 History Patient History Medical History Dyslipidemia (Chronic) ESRD on hemodialysis (Chronic) TUESDAY/TUE/TUESDAY ([place]) Cardiomyopathy (Chronic) CAD (coronary artery disease) (Acute) Diabetes mellitus type 1 Hypertension Macular degeneration Peripheral neuropathy Surgical History Fistula RT ARM PRESENT History of cardiac cath 2017 (NO STENTS) History of coronary artery bypass graft 2 VESSELS 08/2017 ? STENT PLACED AT [place] FOLLOWED BY ROLAND GROVER History of tooth extraction Family History Mother Family history of diabetes mellitus Father Family history of diabetes mellitus Social History Preferred Language: Luxembourgish Communication Ability: Effective Vocational Ed Instructor Required: No Beliefs That Will Affect Care: None Current Living Situation: Family Feels Safe at Home: Yes Smoking Status: Current every day smoker Tobacco Type: cigarettes ; Cigarettes Per Day: 10 CIG ; Second Hand Exposure: Yes (OCCASIONALLY) ; Hx Alcohol Use: No Hx Substance Use: No Review of Systems Review of Systems: All systems reviewed & are unremarkable except as noted in HPI & below Physical Exam Constitutional: WD/WN, vitals as above + ill appearing and + in distress Eyes: PERRL, conjunctivae normal, anicteric sclerae ENMT: Ears: + hearing impairment Mouth: + edentulous active gum bleeding, dry blood in neck and chest area Neck: trachea midline Respiratory: normal respiratory effort, lungs clear to auscultation no cough Auscultation: no crackles, no rales and no wheezes Cardiovascular: RRR, no murmur, no edema Gastrointestinal (Abdomen): normal bowel sounds, soft, nontender, no hepatosplenomegaly Percussion/Palpation: abdomen nontender, no guarding and abdomen not rigid Musculoskeletal: Extremities: extremities normal to inspection Gait: normal gait Skin: no rashes, warm and dry Neurologic: moves all extremities and awake Psychiatric: A+Ox3, euthymic affect Results & Data Vital Signs (Past 12 Hours) Vital Signs Temp Pulse Resp BP Pulse Ox 03/10/19 08:17 36.5 C 70 16 122/81 99 PG Care Time/CCT Total # of Minutes Spent Total Time Spent with Patient: Total time spent is greater than 50% in coordination of care (as documented) at patient's floor/unit and/or counseling patient: (1) Anemia Anemia type: unspecified type Qualified Code(s): D64.9 - Anemia, unspecified
--- NOTE | 2019-03-10 10:57 | History & Physical Report ---
Date of Service March 10, 2019 Assessment & Plan (1) Surgical wound hemorrhage after dental procedure: 33 year old man with DM 1 with complications, CAD s/p CABG, ESRD on HD, Hypertension, smoker who presented with postprocedural bleeding after multiple teeth extraction, missed HD and found to be anemic, hyperkalemic and elevated BUN. -Bleeding likely worsened by azotemia -Discussed with ED physician who already contacted maxillofacial surgeon. Patient will get aminocaproic acid already order -Monitor bleeding -Hold diet for now until bleeding is controlled -Hb is 6.9. Will transfuse with HD and monitor Hemoglobin Present on Admission?: Yes (2) Acute on chronic anemia: Acute on chronic normocytic anemia -Review of labs show Hb of 9.9 in 08/2017 and 10.5 in 01/2019. Chronic anemia likely due to ESRD and other comorbidities. Anemia worsened by acute bleed -PRBC already ordered in ED -Address bleeding as discussed above -Transfuse with HD -Monitor Hb and transfuse as needed to keep >7 Present on Admission?: Yes (3) Hyperkalemia: Elevated potassium due to missed HD -No hyperkalemic changes on EKG -Got Calcium gluconate and insulin in ED -Will get HD. Discussed with ED physician who already consulted production supervisor off shift -Monitor Potassium and electrolytes -Telemetry monitoring Present on Admission?: Yes (4) ESRD on hemodialysis: ESRD on HD Missed HD yesterday Currently has hyperkalemia, azotemia -Trade Embalmer aware -Will get HD today -Monitor renal labs -Continue home renal medications (5) Abrasion of second toe, right: Skin lesion on right second toe due to trauma from dystrophic Right great toe - Toe dressing -Educated patient on need for proper foot care -Will need follow up with bilingual spanish inbound sales on discharge Present on Admission?: Yes (6) Diabetes mellitus type 1: DM1 with complications (nephropathy and retinopathy) -Educated patient on need for proper DM control -Glycemic management with insulin -Holding diet for now until bleeding is addressed and then to start liquid diet -Check HbA1c -Follow up with his iuss acoustic analyst and production supervisor off shift on discharge Present on Admission?: Yes (7) Hypertension: Blood pressure is currently controlled -Due to active bleeding, will hold losartan and amlodipine for now. Monitor BP and resume as appropriate Present on Admission?: Yes (8) CAD (coronary artery disease): CAD s/p CABG Reported that during evaluation for possible renal transplant 2 years ago, he was found to have CAD and required CABG Patient is not currently on aspirin. Unclear if he follows with Cardiology EKG changes noted. New findings may be due demand due to acute on chronic anemia from bleeding. Has no ACS symptoms at this time -Continue isosorbide, rosuvasstatin -Counselled extensively on need for smoking cessation. Declined nicotine replacement therapy at this time Present on Admission?: Yes (9) Discharge planning issues: Wll discharge to home after management with follow up with PCP, ophthalmo logist, production supervisor off shift and bilingual spanish inbound sales (10) DVT prophylaxis: TEG stockings for now Disposition: Medicine with telemetry History of Present Illness Chief Complaint: Gum bleeding Primary Care Provider: Mckinley Douglas MD 33 year old man with history of DM type 1 (Diagnosed at about 12 years of age) with DM retinopathy and nephropathy, ESRD on HD ([facility]), Hypertension, CAD s/p CABG 2 years ago, current smoker who presented for persistent gum bleeding post teeth extraction 2 days ago. Patient reported he had all his teeth extracted two days ago due to multiple dental problems and infections. He stated that he was told that he will have some bleeding post procedure but reported that the bleeding has been profuse and persistent since then, hence his presentation to the ER. Reported some nausea post procedure. Had a few episodes of epistaxis after procedure as well (stated some of the teeth invaded his sinuses). Still has gum pain and lower jaw pain. Reported some dizziness this morning and mild headache. Denied any fevers, chills, bleeding from other sites Denied palpitation or fatigue Has been on liquid/pureed diet since procedure. Has not had a bowel movement but passes flatus. Denied abdominal pain Denied any previous history of easy bruising Due to pain/bleeding, he missed his HD yesterday. Last HD session was on tuesday. Reports adherence to his medications. Antibiotic and pain meds were added after procedure to his routine meds. States his random blood glucose at home ranges from 200s to 300s. See iuss acoustic analyst often. Has not seen a bilingual spanish inbound sales. Reports abnormal toe nails which is causing him some injury. Smokes about 1 pack per day for 20 years Allergies Allergy/AdvReac Type Severity Reaction Status Date / Time No Known Allergies Allergy NKA Verified 03/10/19 10:30 Home Medications Home Medications Medication Instructions Recorded Confirmed Type amlodipine 10 mg PO HS 11/08/18 03/10/19 History calcium acetate 2 cap PO TIDM 11/08/18 03/10/19 History clonidine HCl 0.1 mg PO HS 11/08/18 03/10/19 History insulin glargine [Lantus U-100 20 unit SUBCUT HS 11/08/18 03/10/19 History Insulin] insulin lispro [Humalog U-100 0 unit SUBCUT TIDM 11/08/18 03/10/19 History Insulin] losartan 100 mg PO HS 11/08/18 03/10/19 History metoprolol succinate 100 mg PO BID 11/08/18 03/10/19 History rosuvastatin 40 mg PO HS 11/08/18 03/10/19 History amoxicillin 500 mg PO TID 03/10/19 03/10/19 History hydrocodone-acetaminophen 1 tab PO Q8 PRN MDD 7 day dose 03/10/19 03/10/19 History isosorbide mononitrate 60 mg PO QAM 03/10/19 03/10/19 History Past Med/Surg History Medical History Dyslipidemia (Chronic) ESRD on hemodialysis (Chronic) TUESDAY/TUE/TUESDAY (CHRISTINE) Cardiomyopathy (Chronic) CAD (coronary artery disease) (Chronic) Acute on chronic anemia Diabetic retinopathy associated with type 1 diabetes mellitus Diabetes mellitus type 1 (Chronic) Hypertension (Chronic) Macular degeneration Surgical History History of coronary artery bypass graft (Chronic) 2 VESSELS 08/2017 ? STENT PLACED AT [facility] FOLLOWED BY ROLAND GROVER Fistula RT ARM PRESENT History of cardiac cath 2017 (NO STENTS) History of tooth extraction Family History Mother Family history of diabetes mellitus Kidney disease Father Family history of diabetes mellitus Kidney disease Social History Preferred Language: Syrian Communication Ability: Effective Data Analytics Analyst Required: No Beliefs That Will Affect Care: None Current Living Situation: Family Feels Safe at Home: Yes Smoking Status: Current every day smoker Tobacco Type: cigarettes ; Cigarettes Per Day: 30 ; Second Hand Exposure: No ; Hx Alcohol Use: No Hx Substance Use: No Review of Systems Review of Systems: Constitutional: No fever; no chills, no fatigue and no anorexia Eyes: No diplopia, no eye pain, no new blurred vision (Has chronic visual problems) Ear, Nose, Mouth, Throat: No ear discharge or pain, no hearing loss, no nasal congestion, no nasal discharge, Had some episodes of epistaxis (after teeth extraction), +gum bleeding, no sore throat and no hoarseness Respiratory: No cough, no dyspnea, no dyspnea on exertion and no hemoptysis Cardiovascular: No chest pain, no chest pain with activity, no palpitations, Had some lightheadedness this morning, no syncope, no edema and no calf pain Gastrointestinal: No abdominal pain, +Nausea (2 days ago), no heartburn, +constipation (No bowel movement in a few days but passes flatus), no diarrhe a/loose stools, no melena Genitourinary: No dysuria, no urinary frequency, no urgency, no urinary incontinence, no urethral discharge, Musculoskeletal: No back pain, no joint pain and no muscle weakness, +Right Toe wound Integumentary: No rash Neurologic: +mild headache, no paralysis, no numbness and no syncope Psychiatric: No depression, no suicidal ideation and no anxiety Endocrine: No polydipsia, no polyphagia, no cold intolerance, no heat intolerance Hematologic / Lymphatic: +Gum bleeding, +episodes of epistaxis Physical Exam Physical Exam: General: Clothing stained with blood, well hydrated , average body habitus, no acute distress Eyes: PERRL, conjunctivae normal but pale, anicteric sclerae, EOM intact bilaterally ENMT: External ear and nose normal, Some blood clots within the oral cavity, mild tenderness on palpation of lower jaws bilaterally (R>L) Neck: Normal visual inspection, no tracheal deviation, no swelling noted Respiratory: Normal respiratory effort, no respiratory distress, lungs clear to auscultation, no crackles and no wheezes Cardiovascular: Pulse is RRR. Heart Sounds: normal S1 and normal S2; no murmurs. Vessels: normal peripheral pulses Extremities: no pedal edema Chest (Breasts): Chest: normal inspection of chest , anterior surgical scar on chest Gastrointestinal (Abdomen): Abdomen is not distended, soft, non-tender to palpation, no guarding, no palpable hepatosplenomegaly, normal bowel sounds Musculoskeletal: No cyanosis or clubbing, all extremities motor strength 5/5, Dystrophic right great toe nail, Skin lesion on medial side of Right second toe Skin: Skin lesion on medial side of Right second toe, Dry scaly skin of both feet/toes, No obvious ulcerations noted Neurologic: Alert and oriented x 3, No focal weakness, sensation grossly intact Psychiatric: Alert and oriented x 3, euthymic affect, no depressed affect Lymphatic: No cervical and axillary lymphadenopathy Results & Data Vital Signs (Past 12 Hours) Vital Signs Temp Pulse Resp BP Pulse Ox 03/10/19 08:17 36.5 C 70 16 122/81 99 Laboratory Results 03/10/19 08:45 03/10/19 08:45 Laboratory Results - last 24 hr 03/10/19 03/10/19 03/10/19 08:45 08:45 09:32 WBC 8.96 RBC 2.29 L Hgb 6.9 L* Hct 20.4 L* MCV 89.1 MCH 30.1 MCHC 33.8 RDW Std Deviation 47.6 H RDW Coeff of Hedy 14.5 Plt Count 194 MPV 10.6 H Neutrophils % (Manual) 76.5 Lymphocytes % (Manual) 16.5 Monocytes % (Manual) 2.6 Eosinophils % (Manual) 3.5 Basophils % (Manual) 0.9 Neutrophils # (Manual) 6.85 H Total Absolute Neuts 6.85 H Lymphocytes # (Manual) 1.48 Total Abs Lymphocytes 1.48 Monocytes # (Manual) 0.23 Eosinophils # (Manual) 0.31 Basophils # (Manual) 0.08 RBC Morphology Unremarkable Sodium 127 L Potassium 5.5 H Chloride 87 L Carbon Dioxide 27 Anion Gap 13.0 H BUN 96 H Creatinine 9.25 H* Est Cr Clr Drug Dosing 10.5 Est GFR ( Amer) 7.7 Est GFR (Non-Af Amer) 6.6 BUN/Creatinine Ratio 10.5 Glucose 321 H* Calcium 8.2 L Beta-Hydroxybutyric Acd 0.82 Blood Type B Positive Blood Type Recheck Antibody Screen NEGATIVE Crossmatch See Detail 03/10/19 10:25 WBC RBC Hgb Hct MCV MCH MCHC RDW Std Deviation RDW Coeff of Hedy Plt Count MPV Neutrophils % (Manual) Lymphocytes % (Manual) Monocytes % (Manual) Eosinophils % (Manual) Basophils % (Manual) Neutrophils # (Manual) Total Absolute Neuts Lymphocytes # (Manual) Total Abs Lymphocytes Monocytes # (Manual) Eosinophils # (Manual) Basophils # (Manual) RBC Morphology Sodium Potassium Chloride Carbon Dioxide Anion Gap BUN Creatinine Est Cr Clr Drug Dosing Est GFR ( Amer) Est GFR (Non-Af Amer) BUN/Creatinine Ratio Glucose Calcium Beta-Hydroxybutyric Acd Blood Type Blood Type Recheck B Positive Antibody Screen Crossmatch ECG Additional Comments: EKG done at 8:47 AM showed normal sinus rhythm, rate of 68 bpm, CT 170 MS, QRS of 108 MS, QTC 459 MS, T wave inversion in lateral leads [1 2 and aVL] and V5-6, ST depression in V5 and 6, 2 and aVL. Compared to EKG on aug 29, 2017 , Findings are similar except for new T wave inversion and ST depression in V5 and deeper T wave inversion in V6 Code Status & VTE Plan VTE Prophylaxis Plan VTE Prophylaxis will be ordered: Yes (1) Diabetes mellitus type 1 Chronic kidney disease stage: on chronic dialysis Diabetes mellitus complication detail: with chronic kidney disease Diabetes mellitus complication status: with kidney complications Qualified Code(s): E10.22 - Type 1 diabetes mellitus with diabetic chronic kidney disease; N18.6 - End stage renal disease; Z99.2 - Dependence on renal dialysis (2) CAD (coronary artery disease) Associated angina: without angina Coronary Disease-Associated Artery/Lesion type: unspecified vessel or lesion type [place] vs. transplanted heart: [place] heart Qualified Code(s): I25.10 - Atherosclerotic heart disease of [place] coronary artery without angina pectoris (3) Hypertension Hypertension type: essential hypertension Qualified Code(s): I10 - Essential (primary) hypertension (4) Abrasion of second toe, right Encounter type: initial encounter Qualified Code(s): S90.414A - Abrasion, right lesser toe(s), initial encounter
--- NOTE | 2019-03-10 11:12 | Emergency Department Note ---
Entered by Cassidy Encarnacion acting as a scribe for Andrew Wilson History of Present Illness General Chief complaint: Dental/Oral Stated complaint: MOUTH BLEEDING S/P TOOTH EXTRACTION Time Seen by Provider: 03/10/19 08:27 Source: patient History of Present Illness Onset (ago): day(s) 2 Location: mouth Pain Consistency: + other (persistent ) Maximum Pain Intensity: 6 Quality: + other (bleeding) Associated symptoms: + other (positive mouth pain; positive pain with swallowi ng) The patient is a 33 year old male who presents to the Emergency Room with co mplaints of persistent bleeding from his mouth that began 2 days prior to arrival. The patient states that he had several teeth removed at this time and has had persistent bleeding since. He states that he has pain where his teeth were extracted. The patient reports pain with swallowing. He states that he is on dialysis and typically goes every Tuesday, Tuesday, Tuesday, but states that he did not go to dialysis yesterday because of this. Home Medications Home Medications Medication Instructions Recorded Confirmed Type amlodipine 10 mg PO HS 11/08/18 03/10/19 History calcium acetate 2 cap PO TIDM 11/08/18 03/10/19 History clonidine HCl 0.1 mg PO HS 11/08/18 03/10/19 History insulin glargine [Lantus U-100 20 unit SUBCUT HS 11/08/18 03/10/19 History Insulin] insulin lispro [Humalog U-100 0 unit SUBCUT TIDM 11/08/18 03/10/19 History Insulin] losartan 100 mg PO HS 11/08/18 03/10/19 History metoprolol succinate 100 mg PO BID 11/08/18 03/10/19 History rosuvastatin 40 mg PO HS 11/08/18 03/10/19 History amoxicillin 500 mg PO TID 03/10/19 03/10/19 History hydrocodone-acetaminophen 1 tab PO Q8 PRN MDD 7 day dose 03/10/19 03/10/19 History isosorbide mononitrate 60 mg PO HS 03/10/19 03/10/19 History Allergies Allergy/AdvReac Type Severity Reaction Status Date / Time No Known Allergies Allergy NKA Verified 03/10/19 10:30 Past Med/Surg History Medical History Dyslipidemia (Chronic) ESRD on hemodialysis (Chronic) TUESDAY/TUE/TUESDAY ([place]) Cardiomyopathy (Chronic) CAD (coronary artery disease) (Chronic) Acute on chronic anemia Bleeding gums Diabetic retinopathy associated with type 1 diabetes mellitus Diabetes mellitus type 1 (Chronic) Hypertension (Chronic) Macular degeneration Surgical History History of coronary artery bypass graft (Chronic) 2 VESSELS 08/2017 ? STENT PLACED AT [facility] FOLLOWED BY ROLAND GROVER Fistula RT ARM PRESENT History of cardiac cath 2017 (NO STENTS) History of tooth extraction Family History Mother Family history of diabetes mellitus Kidney disease Father Family history of diabetes mellitus Kidney disease Social History Preferred Language: Nepali Communication Ability: Effective [employer] Required: No Beliefs That Will Affect Care: None Current Living Situation: Family Feels Safe at Home: Yes Smoking Status: Current every day smoker Tobacco Type: cigarettes ; Cigarettes Per Day: 10 CIG ; Second Hand Exposure: Yes (OCCASIONALLY) ; Hx Alcohol Use: No Hx Substance Use: No Review of Systems See HPI for pertinent positives & negatives. and A total of 10 systems reviewed and were otherwise negative Physical Exam Vital Signs Vital Signs - 24 hr 03/10/19 08:17 Temperature 36.5 C Temperature Source Oral Sepsis Recent Fever Within 48 Hours No Sepsis New/Unexplained Change in Mental Status No Sepsis Action Taken by Nursing No Action Required Pulse Rate 70 Respiratory Rate 16 Blood Pressure 122/81 Blood Pressure Mean 94 Pulse Oximetry 99 Oxygen Delivery Method Room Air GENERAL: He is oriented to person, place, and time. He appears well-developed and well-nourished. He does not appear distressed. HENT: Exam performed. - Head: Normocephalic and atraumatic. - Right Ear: External ear normal. No mastoid tenderness. - Left Ear: External ear normal. No mastoid tenderness. - Mouth/Throat: No teeth. The oropharynx is moist. No trismus in the jaw. Dry blood in the mouth. Minor oozing from the right lower posterior gums. No dental abscesses or uvula swelling. No oropharyngeal exudate or tonsillar abscesses. EYES: Conjunctivae and EOM are normal. Pupils are equal, round, and reactive to light. Right eye exhibits no discharge. Left eye exhibits no discharge. No scleral icterus. NECK: Normal range of motion. Neck supple. No JVD present. No spinous process tenderness present. No carotid bruit present. No rigidity. No tracheal deviation and normal range of motion present. No Brudzinski's sign and no Kernig's sign noted. CV: Normal rate, regular rhythm, normal heart sounds and intact distal pulses. There is no peripheral edema. Palpable radial pulses bue. PULM/CHEST: Effort normal and breath sounds normal. No respiratory distress. No stridor. He has no wheezes. He has no rales. - Chest Wall: He exhibits no tenderness. ABD: The abdomen is soft. Bowel sounds are normal. He has no distension. No mass is present. There is no tenderness. There is no rebound, no guarding, no Bolton's sign and no tenderness at McBurney's point. Rovsig negative. MUSC/SKEL: Normal range of motion. There is no peripheral edema, tenderness or deformity. Right upper extremity AV fistula with palpable thrill. LYMPH: No cervical adenopathy. NEURO: He is alert and oriented to person, place, and time. He has normal strength. No cranial nerve deficit or sensory deficit. Coordination and gait normal. GCS eye subscore is 4. GCS verbal subscore is 5. GCS motor subscore is 6. Cerebellar tests wnl. SKIN: Skin is warm and dry. He is not diaphoretic. PSYCH: He has a normal mood and affect. Behavior is normal. Judgment and thought content normal. Course 0828: Past medical records reviewed. The patient was evaluated in room A4B. A complete history and physical exam was performed. 0856: The patient rinsed his mouth and the socket where the oozing with normal saline and was given gel foam to place over the oozing area. Since the patient has no teeth, he is unable to bite down on the foam so he is applying manual pressure. 0910: Had shown hemoglobin is 6.9. Potassium 5.5. Sodium 127. Creatinine 9.25 and BUN 96. Glucose 321. Upon reevaluation, the patient is still bleeding from the mouth. The gel foam was removed and clots were coming out of the sockets so this was rinsed again. I discussed the case with Dr. PatinoOral Surgery who recommends using Amicar mouth wash and after this, apply the gel foam with a 4x4 over it so that the patient can apply pressure with his gums. Dr. PatinoOral Surgery also agreed to be on consult. 0934: I discussed the case with Dr. Mensah Hospitalist who accepts the patient for further evaluation. He recommends discussing the case with Nephrology as the patient missed his last dialysis appointment. I discussed the case with Dr. Valentin [facility] who states that the patient follows with [facility]. 0956: I discussed the case with Dr. Carter-[facility] who states that she will be on consult and will come evaluate the patient. 1016: Dr. Carter is evaluating the patient at bedside. The patient was given 1g of calcium gluconate, 1 amp of bicarb, and 5 units of insulin for his hyperkalemia. 1036: I reassessed the patient and his bleeding appears to have improved. The patient is no longer bleeding. He used the Amicar mouth wash and we reinserted a surgicell pad with gauze over it. Administered Medications Discontinued Medications Calcium Gluconate (Calcium Gluconate 10%) Confirm Administered Dose 1,000 mg IV .STK-MED ONE Stop: 03/10/19 09:31 Last Admin: 03/10/19 09:54 Dose: Not Given Documented by: [id number] Gelatin (Surgifoam Sponge 12-7mm (Small)) 1 ea EXT NOW ONE Stop: 03/10/19 08:43 Last Admin: 03/10/19 08:50 Dose: 1 ea Documented by: [id number] Calcium Gluconate 1,000 mg/ (Sodium Chloride) 60 mls @ 240 mls/hr IV NOW STA Stop: 03/10/19 09:34 Last Admin: 03/10/19 09:54 Dose: 240 mls/hr Documented by: [id number] Insulin Human Regular 5 units/ (Syringe) 9.9 mls @ 3 mls/sec IV ONE STA Stop: 03/10/19 09:21 Last Admin: 03/10/19 09:35 Dose: 3 mls/sec Documented by: [id number] Cosigned by: [id number] Insulin Human Regular (Novolin R U-100 Per Unit) Confirm Administered Dose 1 units .ROUTE .STK-MED ONE Stop: 03/10/19 09:31 Last Admin: 03/10/19 09:54 Dose: Not Given Documented by: [id number] Miscellaneous (Surgicel Fibrillar Hemostat 1 X 2in) 1 ea TOP ONCE ONE Stop: 03/10/19 09:13 Last Admin: 03/10/19 09:54 Dose: Not Given Documented by: [id number] Sodium Bicarbonate (Sodium Bicarbonate 8.4%) 50 meq IV NOW STA Stop: 03/10/19 09:25 Last Admin: 03/10/19 09:35 Dose: 50 meq Documented by: [id number] Medical Decision Making Medical Records Attestation: I reviewed the patient's medical records. Home Medications Current Medication List: was personally reviewed by me Laboratory Data Attestation: I reviewed the patient's lab results. Result diagrams: 03/10/19 08:45 03/10/19 08:45 Lab Results 03/10/19 03/10/19 03/10/19 Range/Units 08:45 08:45 09:32 WBC 8.96 (4.8-10.8) K/uL RBC 2.29 L (4.7-6.1) M/uL Hgb 6.9 L* (14.0-18.0) g/dL Hct 20.4 L* (42-52) % MCV 89.1 (80-100) fL MCH 30.1 (25-34) pg MCHC 33.8 (32-36) g/dL RDW Std Deviation 47.6 H (36.4-46.3) fL RDW Coeff of Hedy 14.5 (11.5-14.5) % Plt Count 194 (130-400) K/uL MPV 10.6 H (7.4-10.4) fL Neutrophils % (Manual) 76.5 % Lymphocytes % (Manual) 16.5 % Monocytes % (Manual) 2.6 % Eosinophils % (Manual) 3.5 % Basophils % (Manual) 0.9 % Neutrophils # (Manual) 6.85 H (1.4-6.5) K/uL Total Absolute Neuts 6.85 H (1.4-6.5) K/uL Lymphocytes # (Manual) 1.48 (1.2-3.4) K/uL Total Abs Lymphocytes 1.48 (1.2-3.4) K/uL Monocytes # (Manual) 0.23 (0.11-0.59) K/uL Eosinophils # (Manual) 0.31 (0-0.5) K/uL Basophils # (Manual) 0.08 (0-0.2) K/uL RBC Morphology Unremarkable Sodium 127 L (136-145) mmol/L Potassium 5.5 H (3.5-5.1) mmol/L Chloride 87 L (98-107) mmol/L Carbon Dioxide 27 (21-32) mmol/L Anion Gap 13.0 H (3-11) BUN 96 H (7-18) mg/dl Creatinine 9.25 H* (0.6-1.4) mg/dl Est Cr Clr Drug Dosing 10.5 ml/min Est GFR ( Amer) 7.7 Est GFR (Non-Af Amer) 6.6 BUN/Creatinine Ratio 10.5 (10-20) Glucose 321 H* (70-99) mg/dl Calcium 8.2 L (8.5-10.1) mg/dl Beta-Hydroxybutyric Acd 0.82 (0.2-2.81) mg/dl Blood Type B Positive Antibody Screen NEGATIVE Crossmatch See Detail ECG Data Attestation: I personally reviewed and interpreted this ECG as follows: Indication: other (arrhythmia ) Rate (beats per minute): 68 Rhythm: sinus rhythm Findings: + other (UT, QRS, QTC intervals within normal limits), + peaked T- waves (leads V1-V4) and + T-wave inversion (lead II, V5, V6); no ST depression and no ST elevation Comparison ECG Date: from (08/2017) Change: the following changes noted (compared to previous the patient has a TWI in lead II, V5, V6 and peaked T waves in leads V1-V4) Blood Pressure Blood Pressure Findings: Normal blood pressure [facility] Narrative 0828: Past medical records reviewed. The patient was evaluated in room A4B. A complete history and physical exam was performed. 0856: The patient rinsed his mouth and the socket where the oozing with normal saline and was given gel foam to place over the oozing area. Since the patient has no teeth, he is unable to bite down on the foam so he is applying manual pressure. 0910: Had shown hemoglobin is 6.9. Potassium 5.5. Sodium 127. Creatinine 9.25 and BUN 96. Glucose 321. Upon reevaluation, the patient is still bleeding from the mouth. The gel foam was removed and clots were coming out of the sockets so this was rinsed again. I discussed the case with Dr. Roberto Chen who recommends using Amicar mouth wash and after this, apply the gel foam with a 4x4 over it so that the patient can apply pressure with his gums. Dr. Roberto Chen also agreed to be on consult. 0934: I discussed the case with Dr. Mensah Hospitalist who accepts the patient for further evaluation. He recommends discussing the case with Nephrology as the patient missed his last dialysis appointment. I discussed the case with Dr. Valentin Nephrology who states that the patient follows with [facility]. 0956: I discussed the case with Dr. Carter-[facility] who states that she will be on consult and will come evaluate the patient. 1016: Dr. Carter is evaluating the patient at bedside. The patient was given 1g of calcium gluconate, 1 amp of bicarb, and 5 units of insulin for his hyperkalemia. 1036: I reassessed the patient and his bleeding appears to have improved. The patient is no longer bleeding. He used the Amicar mouth wash and we reinserted a surgicell pad with gauze over it. Impression & Plan Anemia, Hyperkalemia, Surgical wound hemorrhage after dental procedure Critical Care Time Critical Care Time: Yes Total Critical Care Time: 75 I have personally spent 75 minutes of critical care time in the direct management of this patient. This includes bedside care, interpretation of diagnostic studies, and testing, discussion with consultants, patient, and family members, and other required patient management activities. This 75 minutes is in excess of all separately billable procedures. Discharge Plan Visit Data Chief Complaint: Dental/Oral Stated Complaint: MOUTH BLEEDING S/P TOOTH EXTRACTION ED Provider: Andrew Wilson Discharge Problem: Anemia, Hyperkalemia, Surgical wound hemorrhage after dental procedure Patient Disposition: Being Evaluated by Hospitalist Discharge Instructions Interventions: ED Discharge Assessment Last Done: 03/10/19 10:39 Discharge Problem: Anemia Qualifiers: Anemia type: unspecified type Qualified Code(s): D64.9 - Anemia, unspecified The scribe's documentation has been prepared under my direction and personally reviewed by me in its entirety. I confirm that the note above accurately reflects all work, treatment, procedures, and medical decision making performed by me.
[2019-03-10] MEDS ORDERED: EPOETIN ALFA 10,000 UNITS in SYRINGE 0 ML IV ONE (11:30)
[2019-03-10] MEDS ORDERED: EPOETIN ALFA 10,000 UNITS/ML VIAL IV SCH (11:30)
[2019-03-10] MEDS ORDERED: GLUCAGON FOR INJ 1 MG VIAL SQ PRN (12:04)
[2019-03-10] MEDS ORDERED: GLUCOSE 10 TABS/TUBE PO PRN (12:04)
[2019-03-10] MEDS ORDERED: DEXTROSE 50% 50 ML SYRINGE IV PRN (12:04)
[2019-03-10] MEDS ORDERED: GLUCOSE 40% GEL 15 GM TUBE PO PRN (12:04)
[2019-03-10] MEDS: INSULIN ASPART 100 UNITS/ML 3 ML PEN SC SCH ×3 (12:30→20:43)
[2019-03-10] MEDS ORDERED: AMOXICILLIN 500 MG CAP PO PRN (13:01)
[2019-03-10] MEDS: CALCIUM ACETATE 667 MG CAP PO SCH ×2 (17:01→18:01)
[2019-03-10] MEDS ORDERED: Nursing to Pharmacy Communication ONE (17:23)
[2019-03-10] MEDS ORDERED: EPOETIN ALFA 10,000 UNITS/ML VIAL SQ SCH (17:30)
[2019-03-10] MEDS: AMOXICILLIN 500 MG CAP PO SCH (17:58)
[2019-03-10] MEDS: ACETAMINOPHEN 500 MG TAB PO PRN (18:11)
[2019-03-10] MEDS: OXYCODONE HCL IR 5 MG TAB (IMMEDIATE RELEASE) PO PRN (20:39)
[2019-03-10] MEDS: cloNIDine HCl 0.1 MG TAB PO SCH (20:41)
[2019-03-10] MEDS: ROSUVASTATIN CALCIUM 20 MG TAB PO SCH (20:42)
[2019-03-10] MEDS ORDERED: INSULIN GLARGINE SOLOSTAR 100 UNITS/ML 3 ML PEN SQ SCH (21:00)
[2019-03-10] MEDS: METOPROLOL SUCC 50MG EXT REL TAB PO SCH (22:27)
[2019-03-11] MEDS: CARBOHYDRATES FOR HYPOGLYCEMIA PO PRN ×3 (05:09→05:34)
[2019-03-11] MEDS: OXYCODONE HCL IR 5 MG TAB (IMMEDIATE RELEASE) PO PRN ×3 (05:48→18:39)
[2019-03-11 06:38] LABS: Hematocrit (blood only) 29.7 % (42-52); Mean Corpuscular Hgb Conc 33.7 g/dL (32-36); Mean Corpuscular Volume 87.1 fL (80-100); Mean Platelet Volume 10.8 fL (7.4-10.4); Platelet Count 174 K/uL (130-400); RDW Coefficient of Variation 14.4 % (11.5-14.5); RDW Standard Deviation 45.4 fL (36.4-46.3); Red Blood Count 3.41 M/uL (4.7-6.1); White Blood Count 8.82 K/uL (4.8-10.8)
[2019-03-11 06:40] LABS: INR 1.1 (0.9-1.1); Prothrombin Time 10.8 Seconds (9.0-12.0)
[2019-03-11 07:24] LABS: Albumin Globulin Ratio 0.8 (0.9-2); Albumin Level 3.3 gm/dl (3.4-5.0); BUN Creatinine Ratio 6.2 (10-20); Bilirubin,Total 0.4 mg/dl (0.2-1); Calcium 8.7 mg/dl (8.5-10.1); Creatinine Clr Calc Pharmacy 16.8 ml/min; Est GFR (African American) 14.7; Est GFR (Non-African American) 12.7; Phosphorus 5.6 mg/dl (2.5-4.9); Total Protein 7.3 gm/dl (6.4-8.2)
[2019-03-11] MEDS: INSULIN ASPART 100 UNITS/ML 3 ML PEN SC SCH ×4 (08:47→20:38)
[2019-03-11] MEDS: LOSARTAN POTASSIUM 50 MG TAB PO SCH (08:48)
[2019-03-11] MEDS: METOPROLOL SUCC 50MG EXT REL TAB PO SCH ×2 (08:48→20:37)
[2019-03-11] MEDS: AMLODIPINE BESYLATE 5 MG TAB PO SCH (08:48)
[2019-03-11] MEDS: AMOXICILLIN 500 MG CAP PO SCH (08:49)
[2019-03-11] MEDS: ISOSORBIDE MONO EXTENDED REL 60 MG TABCR PO SCH (08:49)
[2019-03-11] MEDS: CALCIUM ACETATE 667 MG CAP PO SCH ×3 (08:50→18:05)
--- NOTE | 2019-03-11 09:35 | Nephrology Progress Note ---
Date of Service March 11, 2019 Assessment & Plan (1) ESRD on hemodialysis: 33-year-old he end-stage renal disease on hemodialysis admitted with anemia secondary to bleeding after teeth extraction. Missed. dialysis currently has significant electrolyte abnormality, sodium 127 potassium 5.5. Volume status acceptable. Bleeding now stopped. had HD yesterday. Now electrolyte acceptable. BP running high on 5 antihypertensives. Hb improved. --start on Hydralazine 10 mg iv prn for BP>150 --Epogen 71141 units x1 dose given during dialysis on 03/11/19 --HD tomorrow --start on Boost 1 can TID as pt has been only on jello --dose medications for GFR less than 10 Will Follow (2) Anemia: (3) Hyperkalemia: (4) Surgical wound hemorrhage after dental procedure: Subjective Yariel was seen and examined this am. Overall feeling better but continues to have pain in mouth. Had Hd yesterday, now electrolyte ,volume status acceptable but BP has been high. Review of Systems Review of Systems: All systems reviewed & are unremarkable except as noted in HPI & below Physical Exam Constitutional: WD/WN, vitals as above + thin; no acute distress Neck: trachea midline Respiratory: normal respiratory effort, lungs clear to auscultation no cough Auscultation: no crackles, no rales and no wheezes Cardiovascular: RRR, no murmur, no edema Neurologic: moves all extremities and awake Psychiatric: A+Ox3, euthymic affect Results & Data Vital Signs (Past 12 Hours) Vital Signs Temp Pulse Pulse Resp BP Pulse Ox 03/11/19 07:28 36.7 C 73 24 209/108 H 100 03/11/19 03:22 36.9 C 75 20 173/88 H 100 03/11/19 00:00 75 03/10/19 23:45 37.5 C 76 20 167/92 H 99 PG Care Time/CCT Total # of Minutes Spent Total Time Spent with Patient: Total time spent is greater than 50% in coordination of care (as documented) at patient's floor/unit and/or counseling patient: (1) Anemia Anemia type: unspecified type Qualified Code(s): D64.9 - Anemia, unspecified
--- NOTE | 2019-03-11 10:48 | Hospitalist Progress Note ---
Date of Service March 11, 2019 Assessment & Plan (1) Surgical wound hemorrhage after dental procedure: 33 year old man with DM 1 with complications, CAD s/p CABG, ESRD on HD, Hypertension, smoker who presented with postprocedural bleeding after multiple teeth extraction, missed HD and found to be anemic, hyperkalemic and elevated BUN. -Bleeding likely worsened by azotemia -Discussed with ED physician who already contacted maxillofacial surgeon. Patient will get aminocaproic acid already order -Hb is 6.9-received 2 unit of blood transfusion -Hemoglobin is 10 today 03/11 -Symptomatically better with minimal dental and facial pain and no more bleeding -Has been tolerating diet (2) Acute on chronic anemia: Acute on chronic normocytic anemia -Review of labs show Hb of 9.9 in 08/2017 and 10.5 in 01/2019. Chronic anemia likely due to ESRD and other comorbidities. Anemia worsened by acute bleed -Received 2 unit of packed red blood transfusion yesterday with dialysis -Symptomatically much better and the hemoglobin went up to 10.0 as of 03/11 (3) Hyperkalemia: Elevated potassium due to missed HD -No hyperkalemic changes on EKG -Got Calcium gluconate and insulin in ED -Will get HD. Discussed with ED physician who already consulted structural steel fitter -Monitor Potassium and electrolytes -Reverted to normal following dialysis (4) ESRD on hemodialysis: ESRD on HD Missed HD yesterday Currently has hyperkalemia, azotemia -Reception aware: Appreciate input and recommendation -Will have dialysis tomorrow (5) Abrasion of second toe, right: Skin lesion on right second toe due to trauma from dystrophic Right great toe - Toe dressing -Educated patient on need for proper foot care -Will need follow up with prototype carpenter on discharge (6) Diabetes mellitus type 1: DM1 with complications (nephropathy and retinopathy) -Educated patient on need for proper DM control -Glycemic management with insulin -Holding diet for now until bleeding is addressed and then to start liquid diet -Check HbA1c -Follow up with his client technical support associate and structural steel fitter on discharge (7) Hypertension: Blood pressure is currently controlled -Due to active bleeding, will hold losartan and amlodipine for now. Monitor BP and resume as appropriate -Blood pressure has been very high this morning -We will restart his usual medications to control blood pressure and hydralazine as needed (8) CAD (coronary artery disease): CAD s/p CABG Reported that during evaluation for possible renal transplant 2 years ago, he was found to have CAD and required CABG Patient is not currently on aspirin. Unclear if he follows with Cardiology EKG changes noted. New findings may be due demand due to acute on chronic anemia from bleeding. Has no ACS symptoms at this time -Continue isosorbide, rosuvasstatin -Counselled extensively on need for smoking cessation. Declined nicotine replacement therapy at this time -Denies any acute cardiac symptoms (9) Discharge planning issues: Wll discharge to home after management with follow up with PCP, client technical support associate, structural steel fitter and prototype carpenter (10) DVT prophylaxis: TEG stockings for now Disposition: Medicine with telemetry Likely discharge tomorrow following hemodialysis Subjective 03/11 The patient was seen and examined in telemetry unit He still complains to have pain in mouth and gum but no more bleeding He has been tolerating diet Denies any other symptoms His blood pressure has been noted to be very high this morning Review of Systems Review of Systems: All systems reviewed and are unremarkable except as noted below Constitutional: + weakness Ear, Nose, Mouth, Throat: + facial pain, + mouth lesions and + dental pain Physical Exam Physical Exam: Sitting at the age of the bed without any significant symptoms Constitutional: WD/WN, vitals as above + thin and + in distress; no acute distress and not ill appearing Eyes: PERRL, conjunctivae normal, anicteric sclerae ENMT: Ears: + hearing impairment Mouth: + edentulous Neck: trachea midline Respiratory: normal respiratory effort; no respiratory distress and no cough Auscultation: lungs clear to auscultation bilaterally; no crackles, no rales and no wheezes Cardiovascular: RRR, no murmur, no edema Gastrointestinal (Abdomen): Inspection/Auscultation: abdomen normal to inspection and normal bowel sounds Percussion/Palpation: abdomen nontender, no guarding and abdomen not rigid Musculoskeletal: Extremities: extremities normal to inspection Gait: normal gait No acute arthritis in any of the joints Skin: no rashes, warm and dry Neurologic: moves all extremities and awake; no focal motor deficits Psychiatric: A+Ox3, euthymic affect Lymphatic: no cervical or axillary lymphadenopathy Results & Data Vital Signs (Past 12 Hours) Vital Signs Temp Pulse Pulse Resp BP Pulse Ox 03/11/19 07:28 36.7 C 73 24 209/108 H 100 03/11/19 03:22 36.9 C 75 20 173/88 H 100 03/11/19 00:00 75 03/10/19 23:45 37.5 C 76 20 167/92 H 99 Laboratory Results Short CBC 03/11/19 Range/Units 05:48 WBC 8.82 (4.8-10.8) K/uL Hgb 10.0 L D (14.0-18.0) g/dL Hct 29.7 L (42-52) % Plt Count 174 (130-400) K/uL BMP 03/11/19 05:48 Sodium 134 L D Potassium 4.0 D Chloride 93 L Carbon Dioxide 32 BUN 34 H D Creatinine 5.42 H* D Glucose 81 Calcium 8.7 Liver Function 03/11/19 Range/Units 05:48 Total Bilirubin 0.4 (0.2-1) mg/dl AST 9 L (15-37) U/L ALT 16 (12-78) U/L Alkaline Phosphatase 87 (45-117) U/L Albumin 3.3 L (3.4-5.0) gm/dl Medications Administered Current Inpatient Medications Acetaminophen (Tylenol) 1,000 mg PO Q8H PRN PRN Reason: Pain Stop: 04/09/19 12:03 Last Admin: 03/10/19 18:11 Dose: 1,000 mg Documented by: Acetaminophen (Tylenol) 650 mg PO Q6H PRN PRN Reason: Pain Stop: 04/09/19 20:25 Amlodipine Besylate (Norvasc) 10 mg PO [facility] Stop: 04/10/19 08:59 Last Admin: 03/11/19 08:48 Dose: 10 mg Documented by: Amoxicillin (Amoxil) 500 mg PO [facility]; Protocol Stop: 03/20/19 13:59 Last Admin: 03/11/19 08:49 Dose: 500 mg Documented by: Amoxicillin (Amoxil) 500 mg PO DAILY PRN; Protocol PRN Reason: AFTER DIALYSIS Stop: 03/20/19 13:00 Calcium Acetate (Phoslo) 1,334 mg PO [facility] Stop: 04/09/19 12:29 Last Admin: 03/11/19 08:50 Dose: 1,334 mg Documented by: Clonidine HCl (Catapres) 0.1 mg PO [facility] Stop: 04/09/19 20:59 Last Admin: 03/10/19 20:41 Dose: 0.1 mg Documented by: Aminocaproic Acid 5,000 mg/ (Sterile Water 80 ml) 0 mg PO UD [facility] Stop: 04/09/19 09:14 Dextrose (Dextrose 50%) 25 - 50 ml IV UD PRN; Protocol PRN Reason: Hypoglycemia Protocol Stop: 04/09/19 12:03 Glucagon (Glucagen) 1 mg SQ UD PRN; Protocol PRN Reason: Hypoglycemia Protocol Stop: 04/09/19 12:03 Glucose (Dex4 Glucose) 4 - 8 tabs PO UD PRN; Protocol PRN Reason: Hypoglycemia Protocol Stop: 04/09/19 12:03 Glucose (Glucose 40%) 15 - 30 gm PO UD PRN; Protocol PRN Reason: Hypoglycemia Protocol Stop: 04/09/19 12:03 Sodium Chloride (Nss) 250 mls @ 15 mls/hr IV .[id number] PRN PRN Reason: For Transfusion Stop: 04/09/19 09:19 Sodium Chloride (Nss 1000ml) 1,000 mls @ 0 mls/hr IV .Q0M PRN PRN Reason: For Hemodialysis Use ONLY Stop: 03/12/19 12:59 Insulin Aspart (Novolog Flexpen) 0 units SC ACHS [facility] Stop: 04/09/19 12:14 Last Admin: 03/11/19 08:47 Dose: Not Given Documented by: Insulin Glargine (Lantus Solostar Pen) 20 units SQ HS [facility] Stop: 04/09/19 20:59 Last Admin: 03/10/19 20:42 Dose: 20 units Documented by: Isosorbide Mononitrate (Imdur Extended Rel) 60 mg PO QAM [facility] Stop: 04/10/19 08:59 Last Admin: 03/11/19 08:49 Dose: 60 mg Documented by: Losartan Potassium (Cozaar) 100 mg PO QAM [facility] Stop: 04/10/19 08:59 Last Admin: 03/11/19 08:48 Dose: 100 mg Documented by: Metoprolol Succinate (Toprol Xl) 100 mg PO BID [facility] Stop: 04/09/19 20:59 Last Admin: 03/11/19 08:48 Dose: 100 mg Documented by: Miscellaneous (Carbohydrates For Hypoglycemia) 15 - 30 gm PO UD PRN PRN Reason: Hypoglycemia Treatment Stop: 04/09/19 12:03 Last Admin: 03/11/19 05:34 Dose: 15 gm Documented by: Oxycodone HCl (Roxicodone Immediate Rel) 5 mg PO Q6H PRN PRN Reason: Pain Stop: 03/24/19 20:25 Last Admin: 03/11/19 05:48 Dose: 5 mg Documented by: Rosuvastatin Calcium (Crestor) 40 mg PO HS [facility] Stop: 04/09/19 20:59 Last Admin: 03/10/19 20:42 Dose: 40 mg Documented by: (1) Abrasion of second toe, right Encounter type: initial encounter Qualified Code(s): S90.414A - Abrasion, right lesser toe(s), initial encounter (2) Diabetes mellitus type 1 Diabetes mellitus complication status: with kidney complications Diabetes mellitus complication detail: with chronic kidney disease Chronic kidney disease stage: on chronic dialysis Qualified Code(s): E10.22 - Type 1 diabetes mellitus with diabetic chronic kidney disease; N18.6 - End stage renal disease; Z99.2 - Dependence on renal dialysis (3) Hypertension Hypertension type: essential hypertension Qualified Code(s): I10 - Essential (primary) hypertension (4) CAD (coronary artery disease) Coronary Disease-Associated Artery/Lesion type: unspecified vessel or lesion type [place] vs. transplanted heart: [place] heart Associated angina: without angina Qualified Code(s): I25.10 - Atherosclerotic heart disease of [place] coronary artery without angina pectoris
[2019-03-11] MEDS: ACETAMINOPHEN 325 MG TAB PO PRN ×2 (11:56→20:40)
[2019-03-11] MEDS: ROSUVASTATIN CALCIUM 20 MG TAB PO SCH (20:37)
[2019-03-11] MEDS: cloNIDine HCl 0.1 MG TAB PO SCH (20:37)
[2019-03-11] MEDS ORDERED: AMLODIPINE BESYLATE 5 MG TAB PO SCH (21:00)
[2019-03-11] MEDS ORDERED: INSULIN GLARGINE SOLOSTAR 100 UNITS/ML 3 ML PEN SQ SCH (21:00)
[2019-03-11] MEDS ORDERED: LOSARTAN POTASSIUM 50 MG TAB PO SCH (21:00)
[2019-03-12] MEDS: OXYCODONE HCL IR 5 MG TAB (IMMEDIATE RELEASE) PO PRN ×2 (00:53→07:58)
[2019-03-12] MEDS: ACETAMINOPHEN 500 MG TAB PO PRN (03:38)
[2019-03-12 06:10] LABS: Estimated Average Glucose 174 mg/dl; Hemoglobin A1C 7.7 % (4.5-5.6)
[2019-03-12 06:37] LABS: Hematocrit (blood only) 23.4 % (42-52); Hemoglobin 8.2 g/dL (14.0-18.0); Mean Corpuscular Volume 85.7 fL (80-100); Mean Platelet Volume 10.6 fL (7.4-10.4); Platelet Count 166 K/uL (130-400); RDW Coefficient of Variation 14.1 % (11.5-14.5); RDW Standard Deviation 43.8 fL (36.4-46.3); Red Blood Count 2.73 M/uL (4.7-6.1); White Blood Count 7.55 K/uL (4.8-10.8)
[2019-03-12] MEDS ORDERED: SODIUM CHLORIDE 0.9% 1000ML 1,000 ML IV PRN (07:00)
[2019-03-12 07:34] LABS: Albumin Globulin Ratio 0.8 (0.9-2); Albumin Level 2.6 gm/dl (3.4-5.0); BUN Creatinine Ratio 5.7 (10-20); Bilirubin,Total 0.4 mg/dl (0.2-1); Calcium 7.7 mg/dl (8.5-10.1); Creatinine Clr Calc Pharmacy 13.6 ml/min; Est GFR (African American) 10.8; Est GFR (Non-African American) 9.3; Globulin 3.2 gm/dl (2.5-4.0); Phosphorus 6.3 mg/dl (2.5-4.9); Potassium 5.9 mmol/L (3.5-5.1); Total Protein 5.8 gm/dl (6.4-8.2)
[2019-03-12] MEDS: INSULIN ASPART 100 UNITS/ML 3 ML PEN SC SCH ×2 (07:46→14:41)
[2019-03-12] MEDS: LOSARTAN POTASSIUM 50 MG TAB PO SCH (07:48)
[2019-03-12] MEDS: AMLODIPINE BESYLATE 5 MG TAB PO SCH (07:49)
[2019-03-12] MEDS: METOPROLOL SUCC 50MG EXT REL TAB PO SCH (07:49)
[2019-03-12] MEDS: ISOSORBIDE MONO EXTENDED REL 60 MG TABCR PO SCH (07:49)
[2019-03-12] MEDS: AMOXICILLIN 500 MG CAP PO SCH (07:50)
[2019-03-12] MEDS: CALCIUM ACETATE 667 MG CAP PO SCH ×2 (07:50→14:39)
--- NOTE | 2019-03-12 12:14 | Nephrology Progress Note ---
Date of Service March 12, 2019 Assessment & Plan (1) ESRD on hemodialysis: 33-year-old he end-stage renal disease on hemodialysis admitted with anemia secondary to bleeding after teeth extraction. Missed. dialysis currently has significant electrolyte abnormality, sodium 127 potassium 5.5. Volume status acceptable. Bleeding now stopped. Yariel was seen and evaluated during HD. Qb adequate. BP appropriate. UF goal 3 L. Blood counts stable and acceptable. Bleeding appears to have stopped. Transfusion provided with HD over the weekend. Epogen provided with treatment today. Reviewed importance of dietary compliance and regular follow up. No additional changes to antihypertensive medications at this time. (2) Anemia: (3) Hyperkalemia: (4) Surgical wound hemorrhage after dental procedure: Subjective No acute events overnight. Yariel was seen and evaluated during hemodialysis this morning. He was tolerating the treatment well. Adequate Qb. BP and volume status acceptable. Review of Systems Review of Systems: All systems reviewed & are unremarkable except as noted in HPI & below Physical Exam Constitutional: well developed; no acute distress Eyes: no scleral abnormality and no corneal abnormality ENMT: Mouth: + oral mucosal abnormality and + muffled voice; oral mucous membranes not dry Neck: normal visual inspection and trachea midline Respiratory: normal respiratory effort Auscultation: lungs clear to auscultation bilaterally Cardiovascular: Rate/Rhythm: regular rate Heart Sounds: normal S1, normal S2 and + murmur Extremities: + AV fistula; no edema Musculoskeletal: Extremities: no cyanosis and no clubbing Skin: normal turgor; no lesions Neurologic: Motor/Sensory: no tremor and no asterixis Psychiatric: Orientation: alert and oriented x 3 Results & Data Vital Signs (Past 12 Hours) Vital Signs Temp Pulse Pulse Resp BP BP Pulse Ox 03/12/19 12:00 70 157/86 H 03/12/19 11:40 69 152/82 H 03/12/19 11:20 66 149/74 H 03/12/19 11:00 66 146/72 H 03/12/19 10:40 66 132/70 03/12/19 10:20 67 139/76 03/12/19 10:00 66 139/77 03/12/19 09:47 64 138/72 03/12/19 09:20 64 131/71 03/12/19 09:05 37.0 C 65 65 161/89 H 03/12/19 07:44 36.8 C 66 16 174/91 H 99 03/12/19 05:15 36.7 C 62 20 151/88 H 98 03/12/19 00:49 36.8 C 65 20 157/81 H 100 Laboratory Results Laboratory Results - last 24 hr 03/11/19 03/11/19 03/11/19 05:48 16:41 20:02 WBC RBC Hgb Hct MCV MCH MCHC RDW Std Deviation RDW Coeff of Hedy Plt Count MPV Sodium Potassium Chloride Carbon Dioxide Anion Gap BUN Creatinine Est Cr Clr Drug Dosing Est GFR ( Amer) Est GFR (Non-Af Amer) BUN/Creatinine Ratio Glucose POC Glucose 221 H 124 H Estimat Average Glucose 174 Hemoglobin A1c 7.7 H Calcium Phosphorus Total Bilirubin AST ALT Alkaline Phosphatase Total Protein Albumin Globulin Albumin/Globulin Ratio 03/12/19 03/12/19 03/12/19 06:12 06:12 07:22 WBC 7.55 RBC 2.73 L Hgb 8.2 L Hct 23.4 L MCV 85.7 MCH 30.0 MCHC 35.0 RDW Std Deviation 43.8 RDW Coeff of Hedy 14.1 Plt Count 166 MPV 10.6 H Sodium 126 L D Potassium 5.9 H D Chloride 87 L Carbon Dioxide 30 Anion Gap 9.0 BUN 40 H Creatinine 6.99 H* D Est Cr Clr Drug Dosing 13.6 Est GFR ( Amer) 10.8 Est GFR (Non-Af Amer) 9.3 BUN/Creatinine Ratio 5.7 L Glucose 141 H POC Glucose 161 H Estimat Average Glucose Hemoglobin A1c Calcium 7.7 L Phosphorus 6.3 H Total Bilirubin 0.4 AST 9 L ALT 13 Alkaline Phosphatase 68 Total Protein 5.8 L D Albumin 2.6 L Globulin 3.2 Albumin/Globulin Ratio 0.8 L PG Care Time/CCT Total # of Minutes Spent Total Time Spent with Patient: Total time spent is greater than 50% in coordination of care (as documented) at patient's floor/unit and/or counseling patient: (1) Anemia Anemia type: unspecified type Qualified Code(s): D64.9 - Anemia, unspecified
--- NOTE | 2019-03-12 14:03 | Hospitalist Progress Note ---
Date of Service March 12, 2019 Assessment & Plan (1) Surgical wound hemorrhage after dental procedure: 33 year old man with DM 1 with complications, CAD s/p CABG, ESRD on HD, Hypertension, smoker who presented with postprocedural bleeding after multiple teeth extraction, missed HD and found to be anemic, hyperkalemic and elevated BUN. -Bleeding likely worsened by azotemia -Discussed with ED physician who already contacted maxillofacial surgeon. Patient will get aminocaproic acid already order -Hb is 6.9-received 2 unit of blood transfusion -Hemoglobin is 10 today 03/11 -Symptomatically better with minimal dental and facial pain and no more bleeding -Has been tolerating diet -No more bleeding from the oral cavity from the gums -Still has some pain but tolerating diet normal (2) Acute on chronic anemia: Acute on chronic normocytic anemia -Review of labs show Hb of 9.9 in 08/2017 and 10.5 in 01/2019. Chronic anemia likely due to ESRD and other comorbidities. Anemia worsened by acute bleed -Received 2 unit of packed red blood transfusion yesterday with dialysis -Symptomatically much better and the hemoglobin went up to 10.0 as of 03/11 -Hemoglobin is 8.2 today (3) Hyperkalemia: Elevated potassium due to missed HD -No hyperkalemic changes on EKG -Got Calcium gluconate and insulin in ED -Will get HD. Discussed with ED physician who already consulted floor manager -Monitor Potassium and electrolytes -Reverted to normal following dialysis (4) ESRD on hemodialysis: ESRD on HD Missed HD yesterday Currently has hyperkalemia, azotemia -Stem Shaper aware: Appreciate input and recommendation -Will have dialysis tomorrow -Will go home this afternoon following hemodialysis -Continue with outpatient dialysis (5) Abrasion of second toe, right: Skin lesion on right second toe due to trauma from dystrophic Right great toe - Toe dressing -Educated patient on need for proper foot care -Will need follow up with automotive engineer on discharge (6) Diabetes mellitus type 1: DM1 with complications (nephropathy and retinopathy) -Educated patient on need for proper DM control -Glycemic management with insulin -Holding diet for now until bleeding is addressed and then to start liquid diet -Check HbA1c -Follow up with his art dealer and floor manager on discharge (7) Hypertension: Blood pressure is currently controlled -Due to active bleeding, will hold losartan and amlodipine for now. Monitor BP and resume as appropriate -Blood pressure has been very high this morning -We will restart his usual medications to control blood pressure and hydralazine as needed -No need to change his current blood pressure medications on discharge (8) CAD (coronary artery disease): CAD s/p CABG Reported that during evaluation for possible renal transplant 2 years ago, he was found to have CAD and required CABG Patient is not currently on aspirin. Unclear if he follows with Cardiology EKG changes noted. New findings may be due demand due to acute on chronic anemia from bleeding. Has no ACS symptoms at this time -Continue isosorbide, rosuvasstatin -Counselled extensively on need for smoking cessation. Declined nicotine replacement therapy at this time -Denies any acute cardiac symptoms (9) Discharge planning issues: Wll discharge to home after management with follow up with PCP, art dealer, floor manager and automotive engineer (10) DVT prophylaxis: TEG stockings for now Disposition: Medicine with telemetry Discharge home this afternoon Subjective 03/11 The patient was seen and examined in telemetry unit He still complains to have pain in mouth and gum but no more bleeding He has been tolerating diet Denies any other symptoms His blood pressure has been noted to be very high this morning 03/12 Patient was seen and examined in telemetry unit There is noted to have very high blood pressure last evening and which has been under control this morning For bleeding from the teeth Will go home after dialysis today Review of Systems Review of Systems: All systems reviewed and are unremarkable except as noted below Constitutional: + weakness Ear, Nose, Mouth, Throat: + facial pain, + mouth lesions and + dental pain Physical Exam Physical Exam: Lying in bed comfortably Constitutional: WD/WN, vitals as above + thin and + in distress; no acute distress and not ill appearing Eyes: PERRL, conjunctivae normal, anicteric sclerae ENMT: Ears: + hearing impairment Mouth: + edentulous Neck: trachea midline Respiratory: normal respiratory effort; no respiratory distress and no cough Auscultation: lungs clear to auscultation bilaterally; no crackles, no rales and no wheezes Cardiovascular: Rate/Rhythm: regular rate and regular rhythm Heart Sounds: no murmur Gastrointestinal (Abdomen): Inspection/Auscultation: abdomen normal to inspection and normal bowel sounds Percussion/Palpation: abdomen nontender, no guarding and abdomen not rigid Musculoskeletal: Extremities: extremities normal to inspection Gait: normal gait Skin: no rashes, warm and dry Neurologic: moves all extremities and awake; no focal motor deficits Psychiatric: A+Ox3, euthymic affect Lymphatic: no cervical or axillary lymphadenopathy Results & Data Vital Signs (Past 12 Hours) Vital Signs Temp Pulse Pulse Resp BP BP Pulse Ox 03/12/19 13:00 72 175/92 H 03/12/19 12:40 69 173/85 H 03/12/19 12:20 69 153/84 H 03/12/19 12:00 70 157/86 H 03/12/19 11:40 69 152/82 H 03/12/19 11:20 66 149/74 H 03/12/19 11:00 66 146/72 H 03/12/19 10:40 66 132/70 03/12/19 10:20 67 139/76 03/12/19 10:00 66 139/77 03/12/19 09:47 64 138/72 03/12/19 09:20 64 131/71 03/12/19 09:05 37.0 C 65 65 161/89 H 03/12/19 07:44 36.8 C 66 16 174/91 H 99 03/12/19 05:15 36.7 C 62 20 151/88 H 98 Laboratory Results Short CBC 03/12/19 Range/Units 06:12 WBC 7.55 (4.8-10.8) K/uL Hgb 8.2 L (14.0-18.0) g/dL Hct 23.4 L (42-52) % Plt Count 166 (130-400) K/uL BMP 03/12/19 06:12 Sodium 126 L D Potassium 5.9 H D Chloride 87 L Carbon Dioxide 30 BUN 40 H Creatinine 6.99 H* D Glucose 141 H Calcium 7.7 L Liver Function 03/12/19 Range/Units 06:12 Total Bilirubin 0.4 (0.2-1) mg/dl AST 9 L (15-37) U/L ALT 13 (12-78) U/L Alkaline Phosphatase 68 (45-117) U/L Albumin 2.6 L (3.4-5.0) gm/dl Medications Administered Current Inpatient Medications Acetaminophen (Tylenol) 1,000 mg PO Q8H PRN PRN Reason: Pain Stop: 10/07/19 12:03 Last Admin: 03/12/19 03:38 Dose: 1,000 mg Documented by: Acetaminophen (Tylenol) 650 mg PO Q6H PRN PRN Reason: Pain Stop: 04/09/19 20:25 Last Admin: 03/11/19 20:40 Dose: 650 mg Documented by: Amlodipine Besylate (Norvasc) 10 mg PO QAM [facility] Stop: 04/10/19 08:59 Last Admin: 03/12/19 07:49 Dose: 10 mg Documented by: Amoxicillin (Amoxil) 500 mg PO QAM [facility]; Protocol Stop: 03/20/19 13:59 Last Admin: 03/12/19 07:50 Dose: 500 mg Documented by: Amoxicillin (Amoxil) 500 mg PO DAILY PRN; Protocol PRN Reason: AFTER DIALYSIS Stop: 03/20/19 13:00 Calcium Acetate (Phoslo) 1,334 mg PO [facility]M [facility] Stop: 04/09/19 12:29 Last Admin: 03/12/19 07:50 Dose: 1,334 mg Documented by: Clonidine HCl (Catapres) 0.1 mg PO HS [facility] Stop: 04/09/19 20:59 Last Admin: 03/11/19 20:37 Dose: 0.1 mg Documented by: Aminocaproic Acid 5,000 mg/ (Sterile Water 80 ml) 0 mg PO UD [facility] Stop: 04/09/19 09:14 Dextrose (Dextrose 50%) 25 - 50 ml IV UD PRN; Protocol PRN Reason: Hypoglycemia Protocol Stop: 04/09/19 12:03 Glucagon (Glucagen) 1 mg SQ UD PRN; Protocol PRN Reason: Hypoglycemia Protocol Stop: 04/09/19 12:03 Glucose (Dex4 Glucose) 4 - 8 tabs PO UD PRN; Protocol PRN Reason: Hypoglycemia Protocol Stop: 04/09/19 12:03 Glucose (Glucose 40%) 15 - 30 gm PO UD PRN; Protocol PRN Reason: Hypoglycemia Protocol Stop: 04/09/19 12:03 Sodium Chloride (Nss) 250 mls @ 15 mls/hr IV .[id number] PRN PRN Reason: For Transfusion Stop: 04/09/19 09:19 Insulin Aspart (Novolog Flexpen) 0 [facility] SC [facility] Stop: 04/09/19 12:14 Last Admin: 03/12/19 07:46 Dose: 4 units Documented by: Insulin Glargine (Lantus Solostar Pen) 18 units SQ [facility] Stop: 04/10/19 20:59 Last Admin: 03/11/19 20:38 Dose: 18 units Documented by: Isosorbide Mononitrate (Imdur Extended Rel) 60 mg PO QAM [facility] Stop: 04/10/19 08:59 Last Admin: 03/12/19 07:49 Dose: 60 mg Documented by: Losartan Potassium (Cozaar) 100 mg PO QAM [facility] Stop: 04/10/19 08:59 Last Admin: 03/12/19 07:48 Dose: 100 mg Documented by: Metoprolol Succinate (Toprol Xl) 100 mg PO BID [facility] Stop: 04/09/19 20:59 Last Admin: 03/12/19 07:49 Dose: 100 mg Documented by: Miscellaneous (Carbohydrates For Hypoglycemia) 15 - 30 gm PO UD PRN PRN Reason: Hypoglycemia Treatment Stop: 04/09/19 12:03 Last Admin: 03/11/19 05:34 Dose: 15 gm Documented by: Oxycodone HCl (Roxicodone Immediate Rel) 5 mg PO Q6H PRN PRN Reason: Pain Stop: 03/24/19 20:25 Last Admin: 03/12/19 07:58 Dose: 5 mg Documented by: Rosuvastatin Calcium (Crestor) 40 mg PO [facility] Stop: 04/09/19 20:59 Last Admin: 03/11/19 20:37 Dose: 40 mg Documented by: (1) Abrasion of second toe, right Encounter type: initial encounter Qualified Code(s): S90.414A - Abrasion, right lesser toe(s), initial encounter (2) Diabetes mellitus type 1 Diabetes mellitus complication status: with kidney complications Diabetes mellitus complication detail: with chronic kidney disease Chronic kidney disease stage: on chronic dialysis Qualified Code(s): E10.22 - Type 1 diabetes mellitus with diabetic chronic kidney disease; N18.6 - End stage renal disease; Z99.2 - Dependence on renal dialysis (3) Hypertension Hypertension type: essential hypertension Qualified Code(s): I10 - Essential (primary) hypertension (4) CAD (coronary artery disease) Coronary Disease-Associated Artery/Lesion type: unspecified vessel or lesion type [place] vs. transplanted heart: [place] heart Associated angina: without angina Qualified Code(s): I25.10 - Atherosclerotic heart disease of [place] coronary artery without angina pectoris
--- NOTE | 2019-03-13 19:17 | Discharge Summary ---
Date of Service March 13, 2019 Admission HPI Per Admitting Provider 33 year old man with history of DM type 1 (Diagnosed at about 12 years of age) with DM retinopathy and nephropathy, ESRD on HD (MWF), Hypertension, CAD s/p CABG 2 years ago, current smoker who presented for persistent gum bleeding post teeth extraction 2 days ago. Patient reported he had all his teeth extracted two days ago due to multiple dental problems and infections. He stated that he was told that he will have some bleeding post procedure but reported that the bleeding has been profuse and persistent since then, hence his presentation to the ER. Reported some nausea post procedure. Had a few episodes of epistaxis after procedure as well (stated some of the teeth invaded his sinuses). Still has gum pain and lower jaw pain. Reported some dizziness this morning and mild headache. Denied any fevers, chills, bleeding from other sites Denied palpitation or fatigue Has been on liquid/pureed diet since procedure. Has not had a bowel movement but passes flatus. Denied abdominal pain Denied any previous history of easy bruising Due to pain/bleeding, he missed his HD yesterday. Last HD session was on tuesday. Reports adherence to his medications. Antibiotic and pain meds were added after procedure to his routine meds. States his random blood glucose at home ranges from 200s to 300s. 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 Has not seen a data collector. Reports abnormal toe nails which is causing him some injury. Smokes about 1 pack per day for 20 years Admission Exam Per Admitting Provider Review of Systems: Constitutional: No fever; no chills, no fatigue and no anorexia Eyes: No diplopia, no eye pain, no new blurred vision (Has chronic visual problems) Ear, Nose, Mouth, Throat: No ear discharge or pain, no hearing loss, no nasal congestion, no nasal discharge, Had some episodes of epistaxis (after teeth extraction), +gum bleeding, no sore throat and no hoarseness Respiratory: No cough, no dyspnea, no dyspnea on exertion and no hemoptysis Cardiovascular: No chest pain, no chest pain with activity, no palpitations, Had some lightheadedness this morning, no syncope, no edema and no calf pain Gastrointestinal: No abdominal pain, +Nausea (2 days ago), no heartburn, +constipation (No bowel movement in a few days but passes flatus), no diarrhea/loose stools, no melena Genitourinary: No dysuria, no urinary frequency, no urgency, no urinary incontinence, no urethral discharge, Musculoskeletal: No back pain, no joint pain and no muscle weakness, +Right Toe wound Integumentary: No rash Neurologic: +mild headache, no paralysis, no numbness and no syncope Psychiatric: No depression, no suicidal ideation and no anxiety Endocrine: No polydipsia, no polyphagia, no cold intolerance, no heat intolerance Hematologic / Lymphatic: +Gum bleeding, +episodes of epistaxis Principal Diagnosis Symptomatic anemia, gum bleeding status post tooth extraction, hypertension, end-stage renal disease on hemodialysis Discharge Exam Constitutional WD/WN, vitals as above + thin and + in distress; no acute distress and not ill appearing Eyes PERRL, conjunctivae normal, anicteric sclerae ENMT Ears: + hearing impairment Mouth: + edentulous Neck trachea midline Respiratory normal respiratory effort; no respiratory distress and no cough Auscultation: lungs clear to auscultation bilaterally; no crackles, no rales and no wheezes Cardiovascular RRR, no murmur, no edema Rate/Rhythm: regular rate and regular rhythm Heart Sounds: no murmur Gastrointestinal (Abdomen) Inspection/Auscultation: abdomen normal to inspection and normal bowel sounds Percussion/Palpation: abdomen nontender, no guarding and abdomen not rigid Musculoskeletal Extremities: extremities normal to inspection Gait: normal gait Skin no rashes, warm and dry Neurologic moves all extremities and awake; no focal motor deficits Psychiatric A+Ox3, euthymic affect Lymphatic no cervical or axillary lymphadenopathy Discharge Data Allergies Allergy/AdvReac Type Severity Reaction Status Date / Time No Known Allergies Allergy NKA Verified 03/10/19 10:30 Consultations 03/10/19 09:57 ED Decision to Admit Stat 03/10/19 12:26 Consult Nephrology Routine Hospital Course (1) Surgical wound hemorrhage after dental procedure: 33 year old man with DM 1 with complications, CAD s/p CABG, ESRD on HD, Hypertension, smoker who presented with postprocedural bleeding after multiple teeth extraction, missed HD and found to be anemic, hyperkalemic and elevated BUN. -Bleeding likely worsened by azotemia -Discussed with ED physician who already contacted maxillofacial surgeon. Patient will get aminocaproic acid already order -Hb is 6.9-received 2 unit of blood transfusion -Hemoglobin is 10 today 9/8 -Symptomatically better with minimal dental and facial pain and no more bleeding -Has been tolerating diet -No more bleeding from the oral cavity from the gums -Still has some pain but tolerating diet normal (2) Acute on chronic anemia: Acute on chronic normocytic anemia -Review of labs show Hb of 9.9 in 08/2017 and 10.5 in 01/2019. Chronic anemia likely due to ESRD and other comorbidities. Anemia worsened by acute bleed -Received 2 unit of packed red blood transfusion yesterday with dialysis -Symptomatically much better and the hemoglobin went up to 10.0 as of 03/11 -Hemoglobin is 8.2 today (3) Hyperkalemia: Elevated potassium due to missed HD -No hyperkalemic changes on EKG -Got Calcium gluconate and insulin in ED -Will get HD. Discussed with ED physician who already consulted structural biologist -Monitor Potassium and electrolytes -Reverted to normal following dialysis (4) ESRD on hemodialysis: ESRD on HD Missed HD yesterday Currently has hyperkalemia, azotemia -Can Capper aware: Appreciate input and recommendation -Will have dialysis tomorrow -Will go home this afternoon following hemodialysis -Continue with outpatient dialysis (5) Abrasion of second toe, right: Skin lesion on right second toe due to trauma from dystrophic Right great toe - Toe dressing -Educated patient on need for proper foot care -Will need follow up with data collector on discharge (6) Diabetes mellitus type 1: DM1 with complications (nephropathy and retinopathy) -Educated patient on need for proper DM control -Glycemic management with insulin -Holding diet for now until bleeding is addressed and then to start liquid diet -Check HbA1c -Follow up with his exhibitor sales and structural biologist on discharge (7) Hypertension: Blood pressure is currently controlled -Due to active bleeding, will hold losartan and amlodipine for now. Monitor BP and resume as appropriate -Blood pressure has been very high this morning -We will restart his usual medications to control blood pressure and hydralazine as needed -No need to change his current blood pressure medications on discharge (8) CAD (coronary artery disease): CAD s/p CABG Reported that during evaluation for possible renal transplant 2 years ago, he was found to have CAD and required CABG Patient is not currently on aspirin. Unclear if he follows with Cardiology EKG changes noted. New findings may be due demand due to acute on chronic anemia from bleeding. Has no ACS symptoms at this time -Continue isosorbide, rosuvasstatin -Counselled extensively on need for smoking cessation. Declined nicotine replacement therapy at this time -Denies any acute cardiac symptoms (9) Discharge planning issues: Wll discharge to home after management with follow up with PCP, exhibitor sales, structural biologist and data collector (10) DVT prophylaxis: TEG stockings for now Disposition: Medicine with telemetry Discharge home this afternoon Total Time Total Time Spent Total Time Spent (In Minutes): 35 minutes Total Time Includes: Examination of the Patient, Discharge Planning, Medication Reconciliation and Communication With Other Providers Discharge Plan Discharge Items Patient Disposition: Home - Self-Care Reason For Visit: BLEEDING GUMS Discharge Diagnosis: Symptomatic anemia, gum bleeding status post tooth extraction, hypertension, end-stage renal disease on hemodialysis Condition: Good Discharge Goals: Decrease discomfort, Improve function and Increase independence Activity: Resume your previous activity Non-emergency contact: Primary Care Provider Call non-emergency contact if: you have any medication questions and your symptoms worsen Follow-up/Referrals: Mckinley Douglas MD [Primary Care Provider] - 03/15/19 1:30 pm (Continue hemodialysis as an outpatient) Diet: Dialysis Renal and Low Sodium (2gm) Addtl Provider Instructions: Please take precaution to avoid fall. No change of your medications Prescriptions: Continued amoxicillin 500 mg capsule 500 mg PO TID RF: 0 isosorbide mononitrate 60 mg tablet extended release 24 hr 60 mg PO QAM RF: 0 hydrocodone-acetaminophen 7.5-325 mg tablet 1 tab PO Q8 MDD 7 day dose PRN (Reason: Pain) RF: 0 amlodipine 10 mg tablet 10 mg PO HS RF: 0 clonidine HCl 0.1 mg tablet 0.1 mg PO HS RF: 0 Lantus U-100 Insulin 100 unit/mL solution 20 unit subcut HS RF: 0 metoprolol succinate 100 mg tablet extended release 24 hr 100 mg PO BID RF: 0 insulin lispro [Humalog U-100 Insulin] 100 unit/mL solution subcut TIDM RF: 0 losartan 100 mg tablet 100 mg PO HS RF: 0 rosuvastatin 40 mg tablet 40 mg PO HS RF: 0 calcium acetate 667 mg capsule 2 cap PO TIDM RF: 0 Stand-Alone Forms: [facility] Discharge Orders: Discharge Order (Routine); Ordered 03/12/19 Ordered By: Myrna Prince Admission Data Admit Date/Time: 03/10/19 10:18 Attending Provider: Myrna Prince Admit Provider: Charla Rodríguez I. Primary Care Provider: Mckinley Douglas Other Providers: Myrna Prince ; Shannan Vo Service: Telemetry Other Interventions: Discharge Summary Assessment (RN) Last Done: 03/12/19 15:04 DC Date/Time DO NOT enter until pt leaves facility: 03/12/19 15:38
== END 2019-03-12 15:38 | disposition home or self-care (01) | DRG 919 ==
LOC: ED 08:08 → 2E 10:18
DX: Z95.1 Presence of aortocoronary bypass graft; Z99.2 Dependence on renal dialysis; E87.5 Hyperkalemia; I12.0 Hypertensive chronic kidney disease with stage 5 chronic kidney disease or end stage renal disease; I25.10 Atherosclerotic heart disease of native coronary artery without angina pectoris; H35.30 Unspecified macular degeneration; E10.319 Type 1 diabetes mellitus with unspecified diabetic retinopathy without macular edema; E10.51 Type 1 diabetes mellitus with diabetic peripheral angiopathy without gangrene; K91.840 Postprocedural hemorrhage of a digestive system organ or structure following a digestive system procedure; D63.1 Anemia in chronic kidney disease; X58.XXXA Exposure to other specified factors, initial encounter; E10.22 Type 1 diabetes mellitus with diabetic chronic kidney disease; N18.6 End stage renal disease; Y83.8 Other surgical procedures as the cause of abnormal reaction of the patient, or of later complication, without mention of misadventure at the time of the procedure; F17.210 Nicotine dependence, cigarettes, uncomplicated; S90.416A Abrasion, unspecified lesser toe(s), initial encounter; I42.9 Cardiomyopathy, unspecified; Z83.3 Family history of diabetes mellitus; Y92.009 Unspecified place in unspecified non-institutional (private) residence as the place of occurrence of the external cause

== ENCOUNTER 2019-05-04 13:49 | Inpatient (IN) ==
[2019-05-04 14:26] LABS: Basophils # (auto) 0.14 K/uL (0-0.2); Basophils % (auto) 1.7 %; Eosinophils # (auto) 0.48 K/uL (0-0.5); Hematocrit (blood only) 30.4 % (42-52); Hemoglobin 10.1 g/dL (14.0-18.0); Immature Granulocytes # (auto) 0.01 K/uL (0.00-0.02); Immature Granulocytes % (auto) 0.1 %; Lymphocytes # (auto) 1.58 K/uL (1.2-3.4); Lymphocytes % (auto) 19.7 %; Mean Corpuscular Hemoglobin 30.2 pg (25-34); Mean Corpuscular Hgb Conc 33.2 g/dL (32-36); Mean Platelet Volume 10.8 fL (7.4-10.4); Monocytes # (auto) 0.64 K/uL (0.11-0.59); Neutrophils # (auto) 5.18 K/uL (1.4-6.5); Neutrophils % (auto) 64.5 %; Platelet Count 222 K/uL (130-400); RDW Coefficient of Variation 14.9 % (11.5-14.5); RDW Standard Deviation 49.6 fL (36.4-46.3); Red Blood Count 3.34 M/uL (4.7-6.1); White Blood Count 8.03 K/uL (4.8-10.8)
[2019-05-04] MEDS ORDERED: DEXTROSE 50% 50 ML SYRINGE IV STA (14:28)
[2019-05-04] MEDS ORDERED: ALBUT/IPRATROP 3MG/0.5MG NEB 3 ML VIAL NEB ONE (14:28)
[2019-05-04] MEDS ORDERED: NovoLIN-R INSULIN PER UNIT CHARGE IV STA (14:28)
[2019-05-04] MEDS ORDERED: SODIUM CHLORIDE 0.9% 1000ML 500 ML IV ONE (14:28)
[2019-05-04] MEDS ORDERED: CALCIUM GLUCONATE 10% 1,000 MG in SODIUM CHLORIDE 0.9% 50 ML IV STA (14:28)
--- NOTE | 2019-05-04 14:33 | XRay Report ---
XR chest 1V portable CLINICAL HISTORY: weakness dyspnea COMPARISON STUDY: 08/03/2017 FINDINGS: Mild cardiomegaly post median sternotomy. Trace pleural fluid lateral aspects of the costophrenic angles. Blunting atelectasis right midlung. Mild prominence of the pulmonary vasculature. IMPRESSION: 1. Congestive heart failure. 2. Trace pleural fluid lateral costophrenic angles. The above report was generated using voice recognition software. It may contain grammatical, syntax or spelling errors. Electronically signed by: Yeyo Aguilar M.D. 05/04/2019 2:31 PM
[2019-05-04 14:37] LABS: INR 1.1 (0.9-1.1); Partial Thromboplastin Time 26.5 Seconds (21.0-31.0); Prothrombin Time 11.1 Seconds (9.0-12.0)
[2019-05-04 14:38] LABS: iSTAT Creatinine 19.5 mg/dl (0.6-1.3); iSTAT Hemoglobin 10.9 g/dl (14.0-18.0); iSTAT Ionized Calcium 0.93 mmol/l (1.12-1.32); iSTAT Potassium 8.1 mEq/L (3.3-5.0)
[2019-05-04] MEDS ORDERED: SODIUM POLYSTYRENE SULFONATE 15G/60ML SUSP PO STA (14:43)
--- NOTE | 2019-05-04 14:54 | Emergency Department Note ---
Entered by Susy Rojas acting as a scribe for Klaus Monroy DO History of Present Illness General Chief complaint: Illness Stated complaint: 4 TX BEHIND ON DIALYSIS, FATIGUE Time Seen by Provider: 05/04/19 13:57 Source: patient Limitations: no limitations History of Present Illness Onset (ago): day(s) (the past few) Location: head Severity: severe Pain Consistency: + other (persistent) Quality: + other (fatigue) Associated symptoms: + denies other symptoms (lower extremity swelling); no shortness of breath The patient is a 33 year old male who presents to the Emergency Room with complaints of constant severe fatigue that began a few days ago. He reports that it has been 9 days since his last dialysis appointment, noting that he didn't go because it his "screw it attitude." The patient reports that he is so fatigued that he has difficulty getting out of bed. He complains of lower extremity swelling. The patient denies any SOB. He states that he no longer makes urine. The patient notes that he is taking his medications as prescribed. Home Medications Home Medications Medication Instructions Recorded Confirmed Type Lantus U-100 Insulin 15 unit SUBCUT HS 11/08/18 05/04/19 History amlodipine 10 mg PO DAILY 11/08/18 05/04/19 History calcium acetate 1,334 mg PO TIDM 11/08/18 05/04/19 History clonidine HCl 0.1 mg PO DAILY 11/08/18 05/04/19 History insulin lispro [Humalog U-100 0 unit SUBCUT TIDM 11/08/18 05/04/19 History Insulin] losartan 100 mg PO DAILY 11/08/18 05/04/19 History isosorbide mononitrate 60 mg PO QAM 03/10/19 05/04/19 History metoprolol succinate ER 100 mg 100 mg PO BID #180 tab 03/14/19 05/04/19 Rx tablet,extended release 24 hr rosuvastatin 40 mg tablet 40 mg PO HS #90 tab 03/14/19 05/04/19 Rx hydrocodone-acetaminophen 1 tab PO Q6H PRN 05/04/19 05/04/19 History Allergies Allergy/AdvReac Type Severity Reaction Status Date / Time No Known Allergies Allergy NKA Verified 03/10/19 10:30 Past Med/Surg History Medical History Macular degeneration (Chronic) Diastolic dysfunction (Chronic) Ischemic cardiomyopathy (Chronic) Initial EF 20%, echo 01/2019 EF 50 to 54% Dyslipidemia (Chronic) ESRD on dialysis (Chronic) Diabetic nephropathy (Chronic) Diabetic retinopathy (Chronic) Type I diabetes mellitus (Chronic) Hypertension (Chronic) Dyslipidemia (Chronic) ESRD on hemodialysis (Chronic) TUESDAY/TUE/TUESDAY ([facility]) CAD (coronary artery disease) (Chronic) Surgical History History of tooth extraction (Chronic) S/P CABG x 2 (Chronic) Family History Mother Family history of diabetes mellitus Kidney disease Father Family history of diabetes mellitus Kidney disease Social History Preferred Language: Belarusian Communication Ability: 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 and A total of 10 systems reviewed and were otherwise negative Physical Exam Vital Signs Vital Signs - 24 hr 05/04/19 13:53 05/04/19 14:08 05/04/19 14:32 Temperature 36.3 C L Temperature Source Oral Sepsis Recent Fever Within 48 Hours No Sepsis New/Unexplained Change in Mental Status No Sepsis Action Taken by Nursing No Action Required Pulse Rate 61 61 Pulse Rate [Right Finger] Pulse Rate from SpO2 Sensor Respiratory Rate 20 20 Respiratory Effort / Characteristics Respiratory Depth Normal Blood Pressure 178/81 H Blood Pressure Mean 113 Pulse Oximetry 99 100 Oxygen Delivery Method Room Air Room Air 05/04/19 14:39 05/04/19 14:44 05/04/19 14:45 Temperature Temperature Source Sepsis Recent Fever Within 48 Hours Sepsis New/Unexplained Change in Mental Status Sepsis Action Taken by Nursing Pulse Rate 60 59 L Pulse Rate [Right Finger] 60 Pulse Rate from SpO2 Sensor 60 59 L Respiratory Rate 18 20 15 Respiratory Effort / Characteristics Non-Labored Spontaneous Respiratory Depth Blood Pressure 176/88 H 176/90 H Blood Pressure Mean 117 118 Pulse Oximetry 100 100 100 Oxygen Delivery Method Room Air 05/04/19 14:46 05/04/19 15:00 05/04/19 15:01 Temperature Temperature Source Sepsis Recent Fever Within 48 Hours Sepsis New/Unexplained Change in Mental Status Sepsis Action Taken by Nursing Pulse Rate 59 L 62 62 Pulse Rate [Right Finger] Pulse Rate from SpO2 Sensor 59 L 61 61 Respiratory Rate 17 23 18 Respiratory Effort / Characteristics Respiratory Depth Blood Pressure 197/92 H Blood Pressure Mean 127 Pulse Oximetry 100 100 100 Oxygen Delivery Method 05/04/19 15:15 05/04/19 15:16 05/04/19 15:37 Temperature Temperature Source Sepsis Recent Fever Within 48 Hours Sepsis New/Unexplained Change in Mental Status Sepsis Action Taken by Nursing Pulse Rate 66 66 83 Pulse Rate [Right Finger] Pulse Rate from SpO2 Sensor 66 66 Respiratory Rate 23 18 Respiratory Effort / Characteristics Respiratory Depth Blood Pressure 183/89 H Blood Pressure Mean 120 Pulse Oximetry 100 100 Oxygen Delivery Method GENERAL: The patient is awake and alert. He is somewhat anxious appearing but overall comfortable. EYES: The conjunctivae are clear. The pupils are round and reactive. EARS, NOSE, MOUTH AND THROAT: The nose is without any evidence of any deformity. Mucous membranes are moist.Tongue is midline NECK: The neck is nontender and supple. RESPIRATORY: Normal respiratory effort is noted. There are rales at both bases. CARDIOVASCULAR: Regular rate and rhythm noted. There no murmurs rubs or gallops normal S1 normal S2 GASTROINTESTINAL: The abdomen is soft. Bowel sounds are present in all q uadrants. Abdomen is nontender. MUSCULOSKELETAL/EXTREMITIES: There is no evidence of gross deformity. Full range of motion is noted in the hips and shoulders. SKIN: There is no obvious evidence of any rash. There is a fistula noted in the right upper extremity. There is a good bruit noted to auscultation. Pedal edema was noted bilaterally. NEUROLOGIC: Patient is awake alert and oriented x3. Course 1405: The patient was evaluated in room C10. A complete history and physical exam was performed. 1416: I spoke with Dr. Khan, [facility] nephrology, about the patients case. He stated that he will attempt to get the patient into [facility]. 1444: I spoke with Dr. Ortega, [facility] ICU, about the patients case. He will further evaluate the patient. Administered Medications Calcium Acetate (Phoslo) 1,334 mg PO TIDM JANAK Stop: 06/03/19 16:59 Last Admin: 05/04/19 17:17 Dose: Not Given Documented by: [id number] Metoprolol Succinate (Toprol Xl) 100 mg PO BID JANAK Stop: 06/03/19 20:59 Last Admin: 05/04/19 19:54 Dose: 100 mg Documented by: [id number] Rosuvastatin Calcium (Crestor) 40 mg PO HS JANAK Stop: 06/03/19 20:59 Last Admin: 05/04/19 19:55 Dose: 40 mg Documented by: [id number] Discontinued Medications Albuterol (Duoneb) 12 ml NEB ONE ONE Stop: 05/04/19 14:29 Last Admin: 05/04/19 14:39 Dose: 12 ml Documented by: [id number] Dextrose (Dextrose 50%) 50 ml IV NOW STA Stop: 05/04/19 14:29 Last Admin: 05/04/19 14:49 Dose: 50 ml Documented by: [id number] Calcium Gluconate 1,000 mg/ (Sodium Chloride) 60 mls @ 240 mls/hr IV NOW STA Stop: 05/04/19 14:42 Last Infusion: 05/04/19 15:02 Dose: 0 mls/hr Documented by: [id number] Admin: 05/04/19 14:49 Dose: 240 mls/hr Documented by: [id number] Sodium Chloride (Nss 1000ml) 500 mls @ 999 mls/hr IV .Q31M ONE Stop: 05/04/19 14:58 Last Infusion: 05/04/19 15:08 Dose: 0 mls/hr Documented by: [id number] Admin: 05/04/19 14:45 Dose: 999 mls/hr Documented by: [id number] Insulin Human Regular (Novolin R U-100 Per Unit) 10 units IV NOW STA Stop: 05/04/19 14:29 Last Admin: 05/04/19 14:48 Dose: 10 units Documented by: [id number] Cosigned by: [id number] Sodium Polystyrene Sulfonate (Kayexalate) 15 gm PO NOW STA Stop: 05/04/19 14:44 Last Admin: 05/04/19 15:04 Dose: 15 gm Documented by: [id number] Medical Decision Making Differential Diagnosis Differential includes acute coronary syndrome, myocardial infarction, CVA, TIA, anemia, infection, pneumonia, UTI, pyelonephritis, poor nutrition, dehydration, electrolyte disturbance,hypoglycemia. Medical Records Attestation: I reviewed the patient's medical records. Home Medications Current Medication List: was personally reviewed by me Laboratory Data Attestation: I reviewed the patient's lab results. Result diagrams: 05/04/19 14:17 05/04/19 14:17 Lab Results 05/04/19 05/04/19 05/04/19 Range/Units 14:17 14:17 14:17 WBC 8.03 (4.8-10.8) K/uL RBC 3.34 L (4.7-6.1) M/uL Hgb 10.1 L (14.0-18.0) g/dL POC Hgb (14.0-18.0) g/dl Hct 30.4 L (42-52) % POC Hct (42-52) % MCV 91.0 (80-100) fL MCH 30.2 (25-34) pg MCHC 33.2 (32-36) g/dL RDW Std Deviation 49.6 H (36.4-46.3) fL RDW Coeff of Hedy 14.9 H (11.5-14.5) % Plt Count 222 (130-400) K/uL MPV 10.8 H (7.4-10.4) fL Immature Gran % (Auto) 0.1 % Neut % (Auto) 64.5 % Lymph % (Auto) 19.7 % [place] % (Auto) 8.0 % Eos % (Auto) 6.0 % Baso % (Auto) 1.7 % Immature Gran # (Auto) 0.01 (0.00-0.02) K/uL Neut # (Auto) 5.18 (1.4-6.5) K/uL Lymph # (Auto) 1.58 (1.2-3.4) K/uL [place] # (Auto) 0.64 H (0.11-0.59) K/uL Eos # (Auto) 0.48 (0-0.5) K/uL Baso # (Auto) 0.14 (0-0.2) K/uL PT 11.1 (9.0-12.0) Seconds INR 1.1 (0.9-1.1) APTT 26.5 (21.0-31.0) Seconds PTT Ratio 1.0 POC Sodium (135-144) mEq/L Sodium 133 L (136-145) mmol/L POC Potassium (3.3-5.0) mEq/L Potassium 8.0 H* (3.5-5.1) mmol/L POC Chloride (101-112) mEq/L Chloride 96 L (98-107) mmol/L Carbon Dioxide 14 L (21-32) mmol/L POC Total CO2 (24-31) mEq/l Anion Gap 23.0 H (3-11) POC Anion Gap (16-25) mmol/L POC BUN (7-18) mg/dl BUN 121 H (7-18) mg/dl Creatinine 17.90 H* (0.6-1.4) mg/dl POC Creatinine (0.6-1.3) mg/dl Est Cr Clr Drug Dosing Not Reportable Est GFR ( Amer) 3.5 Est GFR (Non-Af Amer) 3.0 BUN/Creatinine Ratio 6.8 L (10-20) Glucose 318 H* (70-99) mg/dl POC Glucose (other) (70-99) mg/dl Calcium 8.4 L (8.5-10.1) mg/dl POC Ioniz Calcium Rupali (1.12-1.32) mmol/l Magnesium 3.7 H (1.8-2.4) mg/dl Total Bilirubin 0.4 (0.2-1) mg/dl AST 17 (15-37) U/L ALT 44 (12-78) U/L Alkaline Phosphatase 123 H (45-117) U/L Troponin I 0.051 H* (0-0.045) ng/ml Total Protein 8.5 H (6.4-8.2) gm/dl Albumin 4.4 (3.4-5.0) gm/dl Globulin 4.1 H (2.5-4.0) gm/dl Albumin/Globulin Ratio 1.1 (0.9-2) Beta-Hydroxybutyric Acd 0.80 (0.2-2.81) mg/dl 05/04/19 05/04/19 Range/Units 14:17 14:24 WBC (4.8-10.8) K/uL RBC (4.7-6.1) M/uL Hgb (14.0-18.0) g/dL POC Hgb 10.9 L (14.0-18.0) g/dl Hct (42-52) % POC Hct 32 L (42-52) % MCV (80-100) fL MCH (25-34) pg MCHC (32-36) g/dL RDW Std Deviation (36.4-46.3) fL RDW Coeff of Hedy (11.5-14.5) % Plt Count (130-400) K/uL MPV (7.4-10.4) fL Immature Gran % (Auto) % Neut % (Auto) % Lymph % (Auto) % [place] % (Auto) % Eos % (Auto) % Baso % (Auto) % Immature Gran # (Auto) (0.00-0.02) K/uL Neut # (Auto) (1.4-6.5) K/uL Lymph # (Auto) (1.2-3.4) K/uL [place] # (Auto) (0.11-0.59) K/uL Eos # (Auto) (0-0.5) K/uL Baso # (Auto) (0-0.2) K/uL PT (9.0-12.0) Seconds INR (0.9-1.1) APTT (21.0-31.0) Seconds PTT Ratio POC Sodium 133 L (135-144) mEq/L Sodium (136-145) mmol/L POC Potassium 8.1 H* (3.3-5.0) mEq/L Potassium (3.5-5.1) mmol/L POC Chloride 102 (101-112) mEq/L Chloride (98-107) mmol/L Carbon Dioxide (21-32) mmol/L POC Total CO2 19 L (24-31) mEq/l Anion Gap (3-11) POC Anion Gap 22.0 (16-25) mmol/L POC BUN 134 H* (7-18) mg/dl BUN (7-18) mg/dl Creatinine (0.6-1.4) mg/dl POC Creatinine 19.5 H* (0.6-1.3) mg/dl Est Cr Clr Drug Dosing Est GFR ( Amer) Est GFR (Non-Af Amer) BUN/Creatinine Ratio (10-20) Glucose (70-99) mg/dl POC Glucose (other) 314 H (70-99) mg/dl Calcium (8.5-10.1) mg/dl POC Ioniz Calcium Rupali 0.93 L (1.12-1.32) mmol/l Magnesium (1.8-2.4) mg/dl Total Bilirubin (0.2-1) mg/dl AST (15-37) U/L ALT (12-78) U/L Alkaline Phosphatase (45-117) U/L Troponin I Cancelled (0-0.045) ng/ml Total Protein (6.4-8.2) gm/dl Albumin (3.4-5.0) gm/dl Globulin (2.5-4.0) gm/dl Albumin/Globulin Ratio (0.9-2) Beta-Hydroxybutyric Acd (0.2-2.81) mg/dl Imaging Data Radiologist's Impression: Radiology results as stated below per my review and the radiologist's interpretation: XR chest 1V portable CLINICAL HISTORY: weakness dyspnea COMPARISON STUDY: 08/03/2017 FINDINGS: Mild cardiomegaly post median sternotomy. Trace pleural fluid lateral aspects of the costophrenic angles. Blunting atelectasis right midlung. Mild prominence of the pulmonary vasculature. IMPRESSION: 1. Congestive heart failure. 2. Trace pleural fluid lateral costophrenic angles. The above report was generated using voice recognition software. It may contain grammatical, syntax or spelling errors. Electronically signed by: Yeyo Aguilar M.D. 05/04/2019 2:31 PM ECG Data Attestation: I personally reviewed and interpreted this ECG as follows: Indication: + weakness Rate (beats per minute): 62 Rhythm: + normal sinus ECG ST segments: + ST depression (diffuse ); no ST elevation ECG Findings: + Peaked T waves and + Other (no ectopy) Comparison ECG Date: from (03/10/19) Change: the following changes noted (peaked T waves are new) Blood Pressure Blood Pressure Findings: Elevated blood pressure Blood Pressure Disposition: further management by hospitalist NINI Narrative The patient is a 33-year-old male who presented to the emergency department for generalized weakness. The patient had missed dialysis for approximately 9 days. The patient's history and physical exam appear to be consistent with volume overload and his laboratory studies revealed signs of acute on chronic renal failure with significant hyperkalemia. The patient had acute changes on his EKG consistent with hyperkalemia. He was treated with an hour-long DuoNeb a small fluid bolus calcium chloride insulin dextrose and was placed on cardiac monitor technician. He was reevaluated multiple times. I immediately discussed his case with the on-call station usher who happens to be the patient's primary station usher. He was able to arrange inpatient dialysis for the patient immediately. The patient was sent directly for inpatient dialysis. I discussed his case with the on-call [facility] hospitalist group as well as the on-call appliance service supervisor. They have all agreed to evaluate the patient in the emergency department for further management disposition. I discussed the patient's laboratory and radiographic studies with him. He was found to have changes on his EKG consistent with hyperkalemia. His blood pressure was elevated. The patient's condition was very critical and I discussed this with him. Impression & Plan Acute renal failure, Hyperkalemia, Abnormal EKG, Weakness Critical Care Time Critical Care Time: Yes Total Critical Care Time: 60 I have personally spent greater than 60 minutes of critical care time in the direct management of this patient. This includes bedside care, interpretation of diagnostic studies, and testing, discussion with consultants, patient, and family members, and other required patient management activities. This 60 minutes is in excess of all separately billable procedures. Discharge Plan Visit Data *Final* Discharge Date/Time: 05/04/19 15:40 Chief Complaint: Illness Stated Complaint: 4 TX BEHIND ON DIALYSIS, FATIGUE ED Provider: Klaus Monroy Discharge Problem: Acute renal failure, Hyperkalemia, Abnormal EKG, Weakness Patient Disposition: Admitted As Inpatient Discharge Instructions Interventions: ED Discharge Assessment Last Done: 05/04/19 15:40 The scribe's documentation has been prepared under my direction and personally reviewed by me in its entirety. I confirm that the note above accurately reflects all work, treatment, procedures, and medical decision making performed by me.
[2019-05-04 14:56] LABS: Alanine Aminotransferase 44 U/L (12-78); Albumin Globulin Ratio 1.1 (0.9-2); Albumin Level 4.4 gm/dl (3.4-5.0); Alkaline Phosphatase 123 U/L (45-117); Aspartate Aminotransferase 17 U/L (15-37); BUN Creatinine Ratio 6.8 (10-20); Bilirubin,Total 0.4 mg/dl (0.2-1); Blood Urea Nitrogen 121 mg/dl (7-18); Calcium 8.4 mg/dl (8.5-10.1); Carbon Dioxide 14 mmol/L (21-32); Chloride 96 mmol/L (98-107); Est GFR (African American) 3.5; Globulin 4.1 gm/dl (2.5-4.0); Glucose 318 mg/dl (70-99); Magnesium 3.7 mg/dl (1.8-2.4); Sodium 133 mmol/L (136-145); Total Protein 8.5 gm/dl (6.4-8.2); Troponin I 0.051 ng/ml (0-0.045)
[2019-05-04] MEDS ORDERED: ICU PROTOCOL FOR HYPERGLYCEMIA PRN (15:37)
--- NOTE | 2019-05-04 15:37 | Critical Care Consultation ---
Date of Consultation May 04, 2019 Assessment & Plan (1) Hyperkalemia: -- Severe hyperkalemia with acute T wave changes on the EKG patient with end-stage renal disease Patient did not get his dialysis in the last 7 days as patient was feeling like having it Patient was given calcium gluconate, albuterol nebulized, insulin, dextrose 50, Kayexalate 15 g in the ER We need emergent dialysis. Nephrology has been consulted and I am being told that dialysis is on their way to do it. We will monitor him in the ICU continuous telemetry. We will repeat labs. -- Hypertensive urgency Patient is not complaining of any headache, no nausea vomiting, is not complaining of any shortness of breath Continue with home medications Titrate down blood pressure gradually Need to give any IV medications -- HAGMA Delta-delta: 1.1 Likely sec to elevated BUN Follow lactic acid Monitor --Insulin-dependent diabetes mellitus type 1 The is noncompliant with his insulin Diabetic education Follow beta hydroxybutyrate acid -- CAD s/p CABG 2017 with questionable bioprosthetic valve --Secondary hypercoagulable state Continue with heparin drip (2) ESRD on hemodialysis: (3) Hypertensive urgency: (4) CAD (coronary artery disease): History of Present Illness Reason for Consultation: Hyperkalemia with acute T wave changes History of Present Illness 33-year-old male with past medical history of type 1 diabetes mellitus noncompliant with his medication, end-stage renal disease on hemodialysis since approximately 10 years, hypertension, coronary artery disease status post CABG comes to the hospital because of generalized lethargy and malaise. Patient did not go for dialysis for more than a week. On asking why he did not go for dialysis he gave very vague answer saying that he was not feeling a going for the first 2 days then he was too weak to go this way ended up to the in the ER. Patient denies any chest pain, no shortness of breath, no headache, no nausea, no vomiting. Denies any palpitations. Patient does not make any urine. No diarrhea. Social history: Greater than 60-pmpb-fxgh active smoker, ex-alcohol abuser quit 8 years ago, denies any illicit drug use. Is disabled. Importance of dialysis and taking insulin on a regular basis was explained to the patient. Patient was explained that if he does not do what he supposed to he might end up dying. Allergies Allergy/AdvReac Type Severity Reaction Status Date / Time No Known Allergies Allergy NKA Verified 03/10/19 10:30 Home Medications Home Medications Medication Instructions Recorded Confirmed Type Lantus U-100 Insulin 15 unit SUBCUT HS 11/08/18 05/04/19 History amlodipine 10 mg PO DAILY 11/08/18 05/04/19 History calcium acetate 2 cap PO TIDM 11/08/18 05/04/19 History clonidine HCl 0.1 mg PO DAILY 11/08/18 05/04/19 History insulin lispro [Humalog U-100 0 unit SUBCUT TIDM 11/08/18 05/04/19 History Insulin] losartan 100 mg PO DAILY 11/08/18 05/04/19 History isosorbide mononitrate 60 mg PO QAM 03/10/19 05/04/19 History metoprolol succinate ER 100 mg 100 mg PO BID #180 tab 03/14/19 05/04/19 Rx tablet,extended release 24 hr rosuvastatin 40 mg tablet 40 mg PO HS #90 tab 03/14/19 05/04/19 Rx hydrocodone-acetaminophen 1 tab PO Q6H PRN 05/04/19 05/04/19 History Patient History Medical History Dyslipidemia (Chronic) ESRD on hemodialysis (Chronic) TUESDAY/TUE/TUESDAY ([place]) Cardiomyopathy (Chronic) CAD (coronary artery disease) (Chronic) Diabetes mellitus type 1 (Chronic) Hypertension (Chronic) Acute on chronic anemia Diabetic retinopathy associated with type 1 diabetes mellitus Macular degeneration Surgical History History of coronary artery bypass graft (Chronic) 2 VESSELS 08/2017 ? STENT PLACED AT [facility] FOLLOWED BY ROLAND GROVER Fistula RT ARM PRESENT History of cardiac cath 2017 (NO STENTS) History of tooth extraction Family History Mother Family history of diabetes mellitus Kidney disease Father Family history of diabetes mellitus Kidney disease Social History Preferred Language: Romansh Communication Ability: Effective Radiation Oncology Manager Required: No Beliefs That Will Affect Care: None marital status: Single Current Living Situation: Family Feels Safe at Home: Yes Smoking Status: Current every day smoker Tobacco Type: cigarettes ; Cigarettes Per Day: 30 ; Second Hand Exposure: No ; Hx Alcohol Use: No Hx Substance Use: No Review of Systems Review of Systems: All systems reviewed & are unremarkable except as noted in HPI & below Physical Exam Physical Exam: Constitutional: No acute distress HEENT: EOMI, PERRLA Respiratory system: Good air entry bilaterally, no wheeze, no rhonchi, positive bilateral crackles CVS: S1-S2 positive, no murmurs or gallops, artificial heart valve likely bioprosthetic appreciated, midline scar appreciated Abdomen: Soft, nontender, nondistended, positive bowel sounds x4 Extremities: +2 pulses bilaterally radialis/ dorsalis pedis, +1 edema bilateral lower extremity, no cyanosis, right arm AV fistula Neuro: Awake alert oriented x3 Psych: Normal mood and affect G/U: No Skin: no rashes, warm and dry Lymphatic: no cervical or axillary lymphadenopathy Results & Data Vital Signs (Past 12 Hours) Vital Signs Temp Pulse Pulse Resp BP Pulse Ox 05/04/19 15:16 66 18 100 05/04/19 15:15 66 23 183/89 H 100 05/04/19 15:01 62 18 100 05/04/19 15:00 62 23 197/92 H 100 05/04/19 14:46 59 L 17 100 05/04/19 14:45 59 L 15 176/90 H 100 05/04/19 14:44 60 20 176/88 H 100 05/04/19 14:39 60 18 100 05/04/19 14:32 61 20 05/04/19 14:08 100 05/04/19 13:53 36.3 C L 61 20 178/81 H 99 05/04/19 14:17 05/04/19 14:17 EKG Diagnostic Findings EKG: Normal sinus rhythm, right axis deviation, P mitrale, hyperacute T waves appreciated in V3 V4 V5, QRS duration is 140 seconds no clear bundle branch block appreciated. Chest x-ray reviewed personally: Enlarged cardiac silhouette, good inspiratory effort, pulmonary vascular congestion appreciated fluid in the right fissure bilateral costophrenic angles blunted. Coding Level of Care Code Critical Care 1st 30-74 mins Diagnoses Hyperkalemia E87.5 ESRD on hemodialysis N18.6; Z99.2 Hypertensive urgency I16.0 CAD (coronary artery disease) I25.10 Coronary Disease-Associated Artery/Lesion type: unspecified vessel or lesion type [place] vs. transplanted heart: [place] heart Associated angina: without angina Time Spent (min) 45 (1) CAD (coronary artery disease) Coronary Disease-Associated Artery/Lesion type: unspecified vessel or lesion type [place] vs. transplanted heart: [place] heart Associated angina: without angina Qualified Code(s): I25.10 - Atherosclerotic heart disease of [place] coronary artery without angina pectoris
[2019-05-04] MEDS ORDERED: HYDROCODONE/ACETAMOPHEN 5/325MG TAB PO PRN (15:53)
[2019-05-04] MEDS ORDERED: HEPARIN SOD (PORCINE) 1000 UNIT/ML 10 ML VIAL IV ONE (16:11)
[2019-05-04] MEDS ORDERED: SODIUM CHLORIDE 0.9% 1000ML 1,000 ML IV PRN (16:11)
--- NOTE | 2019-05-04 16:18 | Nephrology Consultation ---
Date of Consultation May 04, 2019 Assessment & Plan (1) ESRD on hemodialysis: -- Will provide emergency HD today. Orders placed in EMR and HD RN notified (2) Problem with dialysis access: -- Critical care team placing IJ temporary dialysis catheter -- Will order R arm AVF duplex to assess for inflow stenosis once patient's condition has stabilize (3) Hypertension: -- Will attempt 2 - 3 L UF w/ dialysis tonight. Expect BP will improve w/ UF (4) S/P admission to ICU (intensive care unit): -- Plan of care discussed w/ ICU team History of Present Illness Reason for Consultation: ESRD Attending Physician: Jj Brink MD History of Present Illness Mr. Rebolledo is a 33 year old white male who is seen & examined in the ICU at the request of Dr. Ortega to provide emergency hemodialysis. Medical records in the EMR were reviewed today and are summarized as follows: Mr. Rebolledo has ESRD due to diabetic nephropathy. He has been on IHD since 11/15 under the care of Dr. Khan ([facility] MWF 4hr 2K 2Ca F-180NR Qb 400 EDW 66kg). He refused his last 3 outpatient treatments and presented to the ED this afternoon for evaluation. Labs revealed K 8.1 with peaked T-waves. Mr. Rebolledo was admitted to the ICU for emergency dialysis. AVF was noted to have a high pitched bruit. Access was cannulated but HD could not be performed due to low arterial pressure alarms. Patient likely has AVF inflow stenosis. Critical care team is in the process of placing a temporary IJ HD catheter. PMH: HTN, DM, nephrotic syndrome, anemia, vitamin D deficiency, sHPT, continued tobacco use Allergies Allergy/AdvReac Type Severity Reaction Status Date / Time No Known Allergies Allergy NKA Verified 03/10/19 10:30 Home Medications Home Medications Medication Instructions Recorded Confirmed Type Lantus U-100 Insulin 15 unit SUBCUT HS 11/08/18 05/04/19 History amlodipine 10 mg PO DAILY 11/08/18 05/04/19 History calcium acetate 1,334 mg PO TIDM 11/08/18 05/04/19 History clonidine HCl 0.1 mg PO DAILY 11/08/18 05/04/19 History insulin lispro [Humalog U-100 0 unit SUBCUT TIDM 11/08/18 05/04/19 History Insulin] losartan 100 mg PO DAILY 11/08/18 05/04/19 History isosorbide mononitrate 60 mg PO QAM 03/10/19 05/04/19 History metoprolol succinate ER 100 mg 100 mg PO BID #180 tab 03/14/19 05/04/19 Rx tablet,extended release 24 hr rosuvastatin 40 mg tablet 40 mg PO HS #90 tab 03/14/19 05/04/19 Rx hydrocodone-acetaminophen 1 tab PO Q6H PRN 05/04/19 05/04/19 History Patient History Medical History Dyslipidemia (Chronic) ESRD on hemodialysis (Chronic) TUESDAY/TUE/TUESDAY ([place]) Cardiomyopathy (Chronic) CAD (coronary artery disease) (Chronic) Diabetes mellitus type 1 (Chronic) Hypertension (Chronic) Acute on chronic anemia Diabetic retinopathy associated with type 1 diabetes mellitus Macular degeneration Surgical History History of coronary artery bypass graft (Chronic) 2 VESSELS 08/2017 ? STENT PLACED AT [place] FOLLOWED BY ROLAND GROVER Fistula RT ARM PRESENT History of cardiac cath 2017 (NO STENTS) History of tooth extraction Family History Mother Family history of diabetes mellitus Kidney disease Father Family history of diabetes mellitus Kidney disease Social History Preferred Language: Mosotho Communication Ability: Effective Accountant Certified Public Required: No Beliefs That Will Affect Care: None marital status: Single Current Living Situation: Family Feels Safe at Home: Yes Smoking Status: Current every day smoker Tobacco Type: cigarettes ; Cigarettes Per Day: 30 ; Second Hand Exposure: No ; Hx Alcohol Use: No Hx Substance Use: No Review of Systems Constitutional: no fever and no chills Eyes: no worsening vision and no problem reported Ear, Nose, Mouth, Throat: no problem reported Respiratory: no cough and no dyspnea Cardiovascular: no chest pain, no palpitations and no edema Gastrointestinal: no abdominal pain, no nausea, no vomiting and no diarrhea/loose stools Genitourinary: no dysuria, no urinary hesitancy and no hematuria Musculoskeletal: no back pain Integumentary: no rash Neurologic: no falls, no dizziness and no confusion Physical Exam Constitutional: + thin; not in distress Eyes: PERRL, conjunctivae normal, anicteric sclerae ENMT: external ear and nose normal, oropharynx normal Neck: trachea midline, no thyromegaly Respiratory: normal respiratory effort, lungs clear to auscultation Cardiovascular: RRR, no murmur, no edema Extremities: + AV fistula (high pitched bruit) Gastrointestinal (Abdomen): normal bowel sounds, soft, nontender, no hepatosplenomegaly Musculoskeletal: Extremities: no cyanosis Skin: no rashes, warm and dry Neurologic: awake; not confused Results & Data Vital Signs (Past 12 Hours) Vital Signs Temp Pulse Pulse Resp BP Pulse Ox 05/04/19 15:16 66 18 100 05/04/19 15:15 66 23 183/89 H 100 05/04/19 15:01 62 18 100 05/04/19 15:00 62 23 197/92 H 100 05/04/19 14:46 59 L 17 100 05/04/19 14:45 59 L 15 176/90 H 100 05/04/19 14:44 60 20 176/88 H 100 05/04/19 14:39 60 18 100 05/04/19 14:32 61 20 05/04/19 14:08 100 05/04/19 13:53 36.3 C L 61 20 178/81 H 99 Laboratory Results Laboratory Results - last 24 hr 05/04/19 05/04/19 05/04/19 14:17 14:17 14:17 WBC 8.03 RBC 3.34 L Hgb 10.1 L POC Hgb Hct 30.4 L POC Hct MCV 91.0 MCH 30.2 MCHC 33.2 RDW Std Deviation 49.6 H RDW Coeff of Hedy 14.9 H Plt Count 222 MPV 10.8 H Immature Gran % (Auto) 0.1 Neut % (Auto) 64.5 Lymph % (Auto) 19.7 Charlton % (Auto) 8.0 Eos % (Auto) 6.0 Baso % (Auto) 1.7 Immature Gran # (Auto) 0.01 Neut # (Auto) 5.18 Lymph # (Auto) 1.58 Charlton # (Auto) 0.64 H Eos # (Auto) 0.48 Baso # (Auto) 0.14 PT 11.1 INR 1.1 APTT 26.5 PTT Ratio 1.0 POC Sodium Sodium 133 L POC Potassium Potassium 8.0 H* POC Chloride Chloride 96 L Carbon Dioxide 14 L POC Total CO2 Anion Gap 23.0 H POC Anion Gap POC BUN BUN 121 H Creatinine 17.90 H* POC Creatinine Est Cr Clr Drug Dosing Not Reportable Est GFR ( Amer) 3.5 Est GFR (Non-Af Amer) 3.0 BUN/Creatinine Ratio 6.8 L Glucose 318 H* POC Glucose (other) Calcium 8.4 L POC Ioniz Calcium Rupali Magnesium 3.7 H Total Bilirubin 0.4 AST 17 ALT 44 Alkaline Phosphatase 123 H Troponin I 0.051 H* Total Protein 8.5 H Albumin 4.4 Globulin 4.1 H Albumin/Globulin Ratio 1.1 Beta-Hydroxybutyric Acd 0.80 05/04/19 05/04/19 14:17 14:24 WBC RBC Hgb POC Hgb 10.9 L Hct POC Hct 32 L MCV MCH MCHC RDW Std Deviation RDW Coeff of Hedy Plt Count MPV Immature Gran % (Auto) Neut % (Auto) Lymph % (Auto) Charlton % (Auto) Eos % (Auto) Baso % (Auto) Immature Gran # (Auto) Neut # (Auto) Lymph # (Auto) Charlton # (Auto) Eos # (Auto) Baso # (Auto) PT INR APTT PTT Ratio POC Sodium 133 L Sodium POC Potassium 8.1 H* Potassium POC Chloride 102 Chloride Carbon Dioxide POC Total CO2 19 L Anion Gap POC Anion Gap 22.0 POC BUN 134 H* BUN Creatinine POC Creatinine 19.5 H* Est Cr Clr Drug Dosing Est GFR ( Amer) Est GFR (Non-Af Amer) BUN/Creatinine Ratio Glucose POC Glucose (other) 314 H Calcium POC Ioniz Calcium Rupali 0.93 L Magnesium Total Bilirubin AST ALT Alkaline Phosphatase Troponin I Cancelled Total Protein Albumin Globulin Albumin/Globulin Ratio Beta-Hydroxybutyric Acd Diagnostic Findings CXR - mild pulmonary vascular congestion PG Care Time/CCT Total # of Minutes Spent Total Time Spent with Patient: Total time spent is greater than 50% in coordination of care (as documented) at patient's floor/unit and/or counseling patient: Critical Care Time: Yes Total Critical Care Time: 50
[2019-05-04] MEDS: CALCIUM ACETATE 667 MG CAP PO SCH (17:17)
--- NOTE | 2019-05-04 17:25 | Procedure Note ---
Procedure Note Date of Service May 04, 2019 Procedure: Inserting ultrasound-guided dialysis catheter Sales Administrator: Dr. Libby Ortega Indication: Acute renal failure Consent: Signed by patient and verified with timeout prior to procedure. Anesthesia: 1% lidocaine without epinephrine local. Procedure: Consent was verified and timeout performed. Appropriate imaging studies were reviewed prior to the procedure. Under aseptic and sterile condition, right IJ vein was accessed under direct ultrasound guidance. Guidewire was confirmed to be within the lumen of vein with the help of ultrasound. Dual-lumen dialysis catheter was introduced via Seldinger technique. Guide a wire was removed. Good non-pulsatile blood flow was appreciated from all the ports. The catheter was placed at 16 cm and sutured in place. BioPatch was applied to the catheter and a sterile Tegaderm dressing was applied over the catheter with careful attention to sterility. Lung sliding was appreciated post procedure with the help ultrasound. Chest x-ray to follow Patient tolerated the procedure well. Blood loss: Less than 2 cc Complications: None Coding CPT Codes Tubes, Drains, and Vasc Access - Tubes, Drains, and Vasc Access: Insertion of cannula for hemodialysis ([id number]) Tubes, Drains, and Vasc Access - Tubes, Drains, and Vasc Access: Ultrasound Guidance For Vascular ([id number])
--- NOTE | 2019-05-04 17:47 | XRay Report ---
XR chest 1V portable HISTORY: 33 years-old Male New dialysis catheter placed status post placement of a right IJ central venous catheter COMPARISON: Chest radiograph 05/04/2019 at 2:19 PM TECHNIQUE: Portable AP view of the chest FINDINGS: Cardiac silhouette is enlarged, unchanged. Prior median sternotomy. Mild pulmonary vascular congestio n with interstitial coarsening persists. Trace pleural effusions with trace fluid tracking along the minor fissure. Status post placement of a right IJ central venous catheter with distal tip terminatin g in the expected location of the proximal SVC. No postprocedural pneumothorax. Bones appear grossly intact. IMPRESSION: 1. Status post placement of a right IJ central venous catheter with distal tip terminating in the exp ected location of the proximal SVC. No postprocedural pneumothorax. 2. Cardiomegaly with pulmonary edema and trace pleural effusions. The above report was generated using voice recognition software. It may contain grammatical, syntax o r spelling errors. Electronically signed by: Elias Hou M.D. 05/04/2019 5:46 PM
--- NOTE | 2019-05-04 17:58 | Dialysis Progress Note ---
Date of Service May 04, 2019 Subjective Mr. Rebolledo was seen & examined while on HD this evening. R IJ temporary HD catheter is in place running A --> A at Qb 300 cc/min. Patient is in no distress. Physical Exam Neck: IJ catheter site without active bleeding Respiratory: normal respiratory effort, lungs clear to auscultation Cardiovascular: RRR, no murmur, no edema Neurologic: awake; not confused Results & Data Vital Signs (Past 12 Hours) Vital Signs Temp Pulse Pulse Resp BP Pulse Ox 05/04/19 17:00 83 196/98 H 90 05/04/19 16:38 36.9 C 05/04/19 16:30 80 20 173/78 H 90 05/04/19 16:00 81 16 194/100 H 93 05/04/19 15:59 36.7 C 71 05/04/19 15:37 83 05/04/19 15:16 66 18 100 05/04/19 15:15 66 23 183/89 H 100 05/04/19 15:01 62 18 100 05/04/19 15:00 62 23 197/92 H 100 05/04/19 14:46 59 L 17 100 05/04/19 14:45 59 L 15 176/90 H 100 05/04/19 14:44 60 20 176/88 H 100 05/04/19 14:39 60 18 100 05/04/19 14:32 61 20 05/04/19 14:08 100 05/04/19 13:53 36.3 C L 61 20 178/81 H 99 [facility] Procedure Codes (Charges) Renal/Urologic Renal/Urologic: Hemodialysis, One Evaluation
--- NOTE | 2019-05-04 18:13 | History & Physical Report ---
Date of Service May 04, 2019 Assessment & Plan (1) Hyperkalemia: (2) Volume overload: (3) ESRD on hemodialysis: (4) Noncompliance: -Admit to ICU -Patient presenting from home with reports of generalized weakness, missed dialysis for the past 1 week -In the ED, found to have critical hyperkalemia with K+ 8.0, peak T waves on EKG, evidence of volume overload on exam -In the ED, received IV insulin, D50, IV calcium, Kayexalate, nebulizer treatment -Emergent dialysis being arranged -Follow electrolytes (5) Hypertensive urgency: -BP 194/100 -Question compliance with antihypertensive medications -BP should improve with volume removal from dialysis and resumption of home medications (6) Type I diabetes mellitus: -HgbA1c 7.7 05/2017 -Update HgbA1c -Glucose management as per ICU (7) Diastolic dysfunction: (8) Ischemic cardiomyopathy: -Initial EF is low as 20%, echo 01/2019-EF 5054%, grade 2 diastolic dysfunction -Volume status typically managed with dialysis (9) CAD (coronary artery disease): -Appears stable, no reports of chest pain -Continue beta-anais and statin (10) DVT prophylaxis: -SQ heparin History of Present Illness Chief Complaint: Weakness Primary Care Provider: Mckinley Douglas MD 33-year-old male who presents to the ED for evaluation of generalized weakness. Patient has ESRD and is on dialysis. Reports missing dialysis for the past 1 week. Reports he initially missed because he simply did not feel like going and then developed generalized weakness and was unable to get a bed. Patient reports increasing lower extremity edema. He denies chest pain and shortness of breath. He has had some lightheadedness and dizziness but denies any syncopal event. Appetite has been poor however he denies abdominal pain, nausea, vomiting, diarrhea. No other recent illnesses, fevers, chills. He reports he makes very little urine. In the ED, patient is found to have critical hyperkal emia with K+ 8.0, EKG showing peaked T waves. Nephrology was consulted and patient will be admitted to ICU and undergo emergent dialysis. Allergies Allergy/AdvReac Type Severity Reaction Status Date / Time No Known Allergies Allergy NKA Verified 03/10/19 10:30 Home Medications Home Medications Medication Instructions Recorded Confirmed Type Lantus U-100 Insulin 15 unit SUBCUT HS 11/08/18 05/04/19 History amlodipine 10 mg PO DAILY 11/08/18 05/04/19 History calcium acetate 1,334 mg PO TIDM 11/08/18 05/04/19 History clonidine HCl 0.1 mg PO DAILY 11/08/18 05/04/19 History insulin lispro [Humalog U-100 0 unit SUBCUT TIDM 11/08/18 05/04/19 History Insulin] losartan 100 mg PO DAILY 11/08/18 05/04/19 History isosorbide mononitrate 60 mg PO QAM 03/10/19 05/04/19 History metoprolol succinate ER 100 mg 100 mg PO BID #180 tab 03/14/19 05/04/19 Rx tablet,extended release 24 hr rosuvastatin 40 mg tablet 40 mg PO HS #90 tab 03/14/19 05/04/19 Rx hydrocodone-acetaminophen 1 tab PO Q6H PRN 05/04/19 05/04/19 History Past Med/Surg History Medical History Macular degeneration (Chronic) Diastolic dysfunction (Chronic) Ischemic cardiomyopathy (Chronic) Initial EF 20%, echo 01/2019 EF 50 to 54% Dyslipidemia (Chronic) ESRD on dialysis (Chronic) Diabetic nephropathy (Chronic) Diabetic retinopathy (Chronic) Type I diabetes mellitus (Chronic) Hypertension (Chronic) Dyslipidemia (Chronic) ESRD on hemodialysis (Chronic) TUESDAY/TUE/TUESDAY ([place]) CAD (coronary artery disease) (Chronic) Surgical History History of tooth extraction (Chronic) S/P CABG x 2 (Chronic) Family History Mother Family history of diabetes mellitus Kidney disease Father Family history of diabetes mellitus Kidney disease Social History Preferred Language: [place]ese Communication Ability: Effective Lieutenant Governor Required: No Beliefs That Will Affect Care: None marital status: Single Current Living Situation: Family Other Information That Helps Us Care for You: No Feels Safe at Home: Yes Smoking Status: Heavy tobacco smoker Tobacco Type: cigarettes ; Cigarettes Per Day: 30 ; Do You Dip or Chew Tobacco: No ; Second Hand Exposure: No ; Tobacco Cessation Education Requested by Patient: No Hx Alcohol Use: No Hx Substance Use: No Review of Systems Review of Systems: ROS per HPI, all other systems reviewed and negative Physical Exam Constitutional: WD/WN, vitals as above Eyes: PERRL, conjunctivae normal, anicteric sclerae ENMT: external ear and nose normal, oropharynx normal Respiratory: normal respiratory effort; no respiratory distress Auscultatio n: + crackles (Bilateral bases) Cardiovascular: Rate/Rhythm: regular rate and regular rhythm Vessels: l peripheral pulses Extremities: + edema (+2 edema BLE) Gastrointestinal (Abdomen): normal bowel sounds, soft, nontender, no hepatosplenomegaly Musculoskeletal: no cyanosis or clubbing, extremities motor strength 5/5 Skin: no rashes, warm and dry Neurologic: PERRL, EOMI, accommodation nl, no face palsy, no dysarthria Psychiatric: Orientation: alert and oriented x 3 Affect: + flat affect Results & Data Vital Signs (Past 12 Hours) Vital Signs Temp Pulse Pulse Resp BP Pulse Ox 05/04/19 18:00 82 178/94 H 05/04/19 17:39 36.9 C 80 80 182/86 H 05/04/19 17:00 83 196/98 H 90 05/04/19 16:38 36.9 C 05/04/19 16:30 80 20 173/78 H 90 05/04/19 16:00 81 16 194/100 H 93 05/04/19 15:59 36.7 C 71 05/04/19 15:37 83 05/04/19 15:16 66 18 100 05/04/19 15:15 66 23 183/89 H 100 05/04/19 15:01 62 18 100 05/04/19 15:00 62 23 197/92 H 100 05/04/19 14:46 59 L 17 100 05/04/19 14:45 59 L 15 176/90 H 100 05/04/19 14:44 60 20 176/88 H 100 05/04/19 14:39 60 18 100 05/04/19 14:32 61 20 05/04/19 14:08 100 05/04/19 13:53 36.3 C L 61 20 178/81 H 99 Laboratory Results Short CBC 05/04/19 Range/Units 14:17 WBC 8.03 (4.8-10.8) K/uL Hgb 10.1 L (14.0-18.0) g/dL Hct 30.4 L (42-52) % Plt Count 222 (130-400) K/uL BMP 05/04/19 14:17 Sodium 133 L Potassium 8.0 H* Chloride 96 L Carbon Dioxide 14 L BUN 121 H Creatinine 17.90 H* Glucose 318 H* Calcium 8.4 L Cardiac Enzymes 05/04/19 05/04/19 Range/Units 14:17 14:17 Troponin I 0.051 H* Cancelled (0-0.045) ng/ml Liver Function 05/04/19 Range/Units 14:17 Total Bilirubin 0.4 (0.2-1) mg/dl AST 17 (15-37) U/L ALT 44 (12-78) U/L Alkaline Phosphatase 123 H (45-117) U/L Albumin 4.4 (3.4-5.0) gm/dl Diagnostic Findings CXR IMPRESSION: 1. Congestive heart failure. 2. Trace pleural fluid lateral costophrenic angles. Code Status & VTE Plan VTE Prophylaxis Plan VTE Prophylaxis will be ordered: Yes Supervising Physician Co-Signing Physician Notes I have seen and examined the patient with nurse practitioner and since following the patient i the ICU, I would like to comment that This is a 33 year old male with END STAGE RENAL DISEASE (ESRD) with DEPENDENCE ON DIALYSIS who at baseline makes minimal amount of urine as per patient, supposed to be on dialysis every Tuesday, Tuesday, and Fridays but last dialysis prior to hospital admission on 05/04/19 was on Tuesday04/25/19 with patient missing dialysis sessions as outpatient due to NONCOMPLIANCE and subsequently admitted to the ICU on admission day because of urgent need for dialysis due to severe HYPERKALEMIA with serum potassium of 8.1 and elevated creatinine with Chest X ray findings of pulmonary edema and trace pleural effusions from HYPERVOLEMIA. Despite radiographic evidence of fluid overload and severe electrolyte abnormalities, patient breathing on room air and awake and alert and cooperative on exam. on exam currently General: no acute distress Cardiovascular: hemodialysis through central line right internal jugular access, right arm with AV fistual that could not be accessed for dialysis Lungs: on room air, no wheezes Heart: regular rate Abdomen: soft, nontender, positive bowel sounds Lower extremity: no gross edema -patient currently to ge 3 hours of dialysis session in the ICU on 05/04/19, expect that this will resolve the hypervolemia and hyperkalemia -check electrolytes 2 hours after dialysis session -if dialysis can only be obtained via access from central line, then will need vascular surgery to discern any obstruction or flow access problems from the right upper extremity AV fistula -management of Type 1 diabetes with insulin as per ICU management -agree with other assessment and plans as described by nurse practitioner and appreciate any further assistance from ICU physician and ICU medical staff in the patient's care My colleague Dr. Abraham will be following the patient starting on 05/25/19 (1) CAD (coronary artery disease) Associated angina: without angina Coronary Disease-Associated Artery/Lesion type: unspecified vessel or lesion type [place] vs. transplanted heart: [place] heart Qualified Code(s): I25.10 - Atherosclerotic heart disease of [place] coronary artery without angina pectoris
[2019-05-04] MEDS: METOPROLOL SUCC 50MG EXT REL TAB PO SCH (19:54)
[2019-05-04] MEDS: ROSUVASTATIN CALCIUM 20 MG TAB PO SCH (19:55)
[2019-05-04] MEDS ORDERED: cloNIDine HCl 0.1 MG TAB PO ONE (20:28)
[2019-05-04] MEDS ORDERED: LOSARTAN POTASSIUM 50 MG TAB PO ONE (20:29)
[2019-05-04] MEDS: HEPARIN SOD (PORCINE) 1000 UNIT/ML 10 ML VIAL IV SCH (20:42)
[2019-05-04] MEDS ORDERED: ISOSORBIDE MONO EXTENDED REL 30 MG TABCR PO ONE (22:14)
[2019-05-04] MEDS ORDERED: HydrALAZINE HCL 20 MG/ML VIAL IV PRN (22:16)
[2019-05-04] MEDS ORDERED: cloNIDine HCl 0.1 MG TAB PO PRN (22:39)
[2019-05-04] MEDS ORDERED: AMLODIPINE BESYLATE 5 MG TAB PO ONE (23:30)
[2019-05-04 23:58] LABS: Basophils # (auto) 0.06 K/uL (0-0.2); Eosinophils # (auto) 0.19 K/uL (0-0.5); Eosinophils % (auto) 3.3 %; Hematocrit (blood only) 28.5 % (42-52); Hemoglobin 9.4 g/dL (14.0-18.0); Lymphocytes # (auto) 0.85 K/uL (1.2-3.4); Lymphocytes % (auto) 14.7 %; Mean Corpuscular Volume 91.1 fL (80-100); Mean Platelet Volume 10.2 fL (7.4-10.4); Monocytes # (auto) 0.44 K/uL (0.11-0.59); Monocytes % (auto) 7.6 %; Neutrophils # (auto) 4.25 K/uL (1.4-6.5); Neutrophils % (auto) 73.4 %; Platelet Count 149 K/uL (130-400); RDW Coefficient of Variation 14.8 % (11.5-14.5); RDW Standard Deviation 49.5 fL (36.4-46.3); Red Blood Count 3.13 M/uL (4.7-6.1); White Blood Count 5.79 K/uL (4.8-10.8)
[2019-05-05 00:35] LABS: Albumin Globulin Ratio 0.9 (0.9-2); Albumin Level 3.6 gm/dl (3.4-5.0); BUN Creatinine Ratio 4.9 (10-20); Bilirubin,Total 0.3 mg/dl (0.2-1); Calcium 8.4 mg/dl (8.5-10.1); Creatinine Clr Calc Pharmacy 12.8 ml/min; Est GFR (African American) 9.3; Globulin 3.9 gm/dl (2.5-4.0); Phosphorus 5.3 mg/dl (2.5-4.9); Potassium 4.8 mmol/L (3.5-5.1); Total Protein 7.5 gm/dl (6.4-8.2)
--- NOTE | 2019-05-05 06:57 | XRay Report ---
XR chest 1V portable HISTORY: 33 years-old Male f/u follow-up study in a patient with acute weakness COMPARISON: Chest radiograph 05/04/2019 TECHNIQUE: Portable AP view of the chest FINDINGS: Cardiac silhouette is enlarged, unchanged. Prior median sternotomy. Stable positioning of the right I J hemodialysis catheter. Right midlung opacity suggests loculated fluid within the minor fissure. Tra ce pleural effusions. Minimal ill-defined left lung base and lateral left midlung opacities. Resoluti on of the previously described pulmonary edema pattern. Degenerative changes of the shoulders and spi ne. IMPRESSION: 1. Cardiomegaly with resolution of the previously described pulmonary edema. 2. Trace pleural effusions. The above report was generated using voice recognition software. It may contain grammatical, syntax o r spelling errors. Electronically signed by: Elias Hou M.D. 05/05/2019 6:56 AM
[2019-05-05 07:12] LABS: Basophils # (auto) 0.07 K/uL (0-0.2); Basophils % (auto) 1.3 %; Eosinophils # (auto) 0.24 K/uL (0-0.5); Eosinophils % (auto) 4.6 %; Hematocrit (blood only) 30.1 % (42-52); Hemoglobin 9.9 g/dL (14.0-18.0); Lymphocytes # (auto) 1.14 K/uL (1.2-3.4); Lymphocytes % (auto) 21.9 %; Mean Corpuscular Hemoglobin 30.2 pg (25-34); Mean Corpuscular Hgb Conc 32.9 g/dL (32-36); Mean Corpuscular Volume 91.8 fL (80-100); Mean Platelet Volume 10.2 fL (7.4-10.4); Monocytes # (auto) 0.41 K/uL (0.11-0.59); Monocytes % (auto) 7.9 %; Neutrophils # (auto) 3.35 K/uL (1.4-6.5); Neutrophils % (auto) 64.3 %; Platelet Count 160 K/uL (130-400); RDW Coefficient of Variation 14.9 % (11.5-14.5); RDW Standard Deviation 50.4 fL (36.4-46.3); Red Blood Count 3.28 M/uL (4.7-6.1); White Blood Count 5.21 K/uL (4.8-10.8)
[2019-05-05 07:55] LABS: Albumin Level 3.6 gm/dl (3.4-5.0); BUN Creatinine Ratio 4.9 (10-20); Bilirubin,Total 0.4 mg/dl (0.2-1); Calcium 8.4 mg/dl (8.5-10.1); Creatinine Clr Calc Pharmacy 11.4 ml/min; Est GFR (African American) 8.3; Est GFR (Non-African American) 7.2; Globulin 3.7 gm/dl (2.5-4.0); Magnesium 2.7 mg/dl (1.8-2.4); Phosphorus 7.3 mg/dl (2.5-4.9); Potassium 5.7 mmol/L (3.5-5.1); Total Protein 7.3 gm/dl (6.4-8.2)
[2019-05-05] MEDS: METOPROLOL SUCC 50MG EXT REL TAB PO SCH ×2 (08:32→20:07)
[2019-05-05] MEDS: ISOSORBIDE MONO EXTENDED REL 60 MG TABCR PO SCH (08:32)
[2019-05-05] MEDS: CALCIUM ACETATE 667 MG CAP PO SCH ×3 (08:33→16:39)
[2019-05-05] MEDS: LOSARTAN POTASSIUM 50 MG TAB PO SCH (08:33)
[2019-05-05] MEDS: AMLODIPINE BESYLATE 5 MG TAB PO SCH (08:33)
[2019-05-05] MEDS: cloNIDine HCl 0.1 MG TAB PO SCH (08:43)
[2019-05-05] MEDS ORDERED: SODIUM CHLORIDE 0.9% 1000ML 1,000 ML IV PRN (08:45)
[2019-05-05] MEDS ORDERED: HEPARIN SOD (PORCINE) 1000 UNIT/ML 10 ML VIAL IV SCH (09:00)
--- NOTE | 2019-05-05 09:18 | Critical Care Progress Note ---
Date of Service May 05, 2019 Assessment & Plan (1) Hyperkalemia: -- S/p Severe hyperkalemia with acute T wave changes on the EKG patient with end-stage renal disease Patient did not get his dialysis in the last 7 days as patient was feeling like having it Patient was given calcium gluconate, albuterol nebulized, insulin, dextrose 50, Kayexalate 15 g in the ER S/p emergent HD 05/04/19, for HD today Nephrology on board We will monitor him in the ICU continuous telemetry. We will repeat labs. -- Hypertensive urgency on top of malignant HTN Patient is not complaining of any headache, no nausea vomiting, no shortness of breath Continue with home medications, Add Hydralazine Titrate down blood pressure gradually No need to give any IV medications -- Malfunctioning right arm AV fistula s/p emergent right IJ shiley catheter placement Vascular consulted --Insulin-dependent diabetes mellitus type 1 noncompliant with his insulin Diabetic education Follow beta hydroxybutyrate acid -- CAD s/p CABG 2017 with questionable bioprosthetic valve --Secondary hypercoagulable state heparin Plan: Add hydralazine 50mg TID Repeat EKG (2) ESRD on hemodialysis: (3) Hypertensive urgency: (4) CAD (coronary artery disease): Subjective Patient seen and examined at bedside. No acute distress, no adverse events overnight. Denies any headache, no dizziness, no nausea, no vomiting. Tolerated breakfast today. No shortness of breath, no chest pain, no diarrhea. Patient's blood pressure has been difficult to control. Review of Systems Review of Systems: All systems reviewed & are unremarkable except as noted in HPI & below Physical Exam Physical Exam: Constitutional: No acute distress HEENT: EOMI, PERRLA Respiratory system: Good air entry bilaterally, no wheeze, no rhonchi, positive mild bilateral LL crackles CVS: S1-S2 positive, no murmurs or gallops, artificial heart valve likely bioprosthetic appreciated, midline scar appreciated Abdomen: Soft, nontender, nondistended, positive bowel sounds x4 Extremities: +2 pulses bilaterally radialis/ dorsalis pedis, no edema, no cyanosis, right arm AV fistula Neuro: Awake alert oriented x3 Psych: Normal mood and affect G/U: No Skin: no rashes, warm and dry Lymphatic: no cervical or axillary lymphadenopathy Results & Data Vital Signs (Past 12 Hours) Vital Signs Temp Pulse Pulse Resp BP BP Pulse Ox 05/05/19 08:30 36.9 C 79 17 183/120 H 99 05/05/19 08:01 73 12 96 05/05/19 08:00 72 4 L 161/84 H 96 05/05/19 07:30 77 14 169/84 H 97 05/05/19 07:00 79 12 186/98 H 98 05/05/19 06:15 37.0 C 76 16 96 05/05/19 06:00 76 18 178/93 H 95 05/05/19 05:30 75 18 185/98 H 95 05/05/19 05:00 83 16 188/104 H 97 05/05/19 04:30 78 14 186/98 H 94 05/05/19 04:00 83 13 190/102 H 96 05/05/19 03:30 79 16 192/103 H 94 05/05/19 03:00 83 18 200/104 H 94 05/05/19 02:30 84 16 200/100 H 95 05/05/19 02:00 84 16 199/105 H 95 05/05/19 01:30 90 21 204/104 H 98 05/05/19 01:00 89 19 196/102 H 97 05/05/19 00:30 92 H 16 205/99 H 97 05/05/19 00:00 92 H 14 200/94 H 96 05/04/19 23:36 95 H 05/04/19 23:30 37.3 C 96 H 20 208/92 H 98 05/04/19 23:00 94 H 16 229/106 H 96 05/04/19 22:45 95 H 14 229/108 H 98 05/04/19 22:30 96 H 16 233/107 H 98 05/04/19 22:28 36.4 C L 96 H 235/106 H 05/04/19 22:15 94 H 16 227/106 H 96 05/04/19 22:00 97 H 18 232/107 H 99 05/04/19 21:58 97 H 16 235/106 H 99 05/04/19 21:50 96 H 235/106 H 05/04/19 21:45 98 H 16 227/111 H 100 05/04/19 21:40 96 H 225/108 H 05/04/19 21:30 98 H 14 225/108 H 100 05/04/19 21:20 97 H 229/108 H 05/04/19 21:15 98 H 16 229/108 H 99 05/05/19 07:00 05/05/19 07:00 Coding Level of Care Code Critical Care 1st 30-74 mins Diagnoses Hyperkalemia E87.5 ESRD on hemodialysis N18.6; Z99.2 Hypertensive urgency I16.0 CAD (coronary artery disease) I25.10 Coronary Disease-Associated Artery/Lesion type: unspecified vessel or lesion type [place] vs. transplanted heart: [place] heart Associated angina: without angina Time Spent (min) 35 (1) CAD (coronary artery disease) Coronary Disease-Associated Artery/Lesion type: unspecified vessel or lesion type [place] vs. transplanted heart: [place] heart Associated angina: without angina Qualified Code(s): I25.10 - Atherosclerotic heart disease of [place] coronary artery without angina pectoris
--- NOTE | 2019-05-05 09:49 | Nephrology Progress Note ---
Date of Service May 05, 2019 Assessment & Plan (1) ESRD on hemodialysis: -- Will provide HD today for correction of hyperkalemia and continued UF (2) Problem with dialysis access: -- Will use IJ temporary dialysis catheter for HD today -- Will order R arm AVF duplex to assess for inflow stenosis this afternoon (3) Hypertension: -- Hydralazine has been added to current BP regimen -- Will attempt 2 - 3 L UF w/ dialysis today. Expect BP to improve w/ UF (4) S/P admission to ICU (intensive care unit): -- Plan of care discussed w/ ICU team Subjective Mr. Rebolledo was seen & examined in the ICU this morning. He was dialyzed via R IJ temporary catheter yesterday without complication. 2500 cc UF obtained. Patient voices no medical concerns. Review of Systems Constitutional: no fever and no chills Eyes: no worsening vision and no problem reported Ear, Nose, Mouth, Throat: no problem reported Respiratory: no cough and no dyspnea Cardiovascular: no chest pain, no palpitations and no edema Gastrointestinal: no abdominal pain and no diarrhea/loose stools Musculoskeletal: no back pain Integumentary: no rash Neurologic: no confusion Physical Exam Constitutional: + thin; not in distress Eyes: PERRL, conjunctivae normal, anicteric sclerae ENMT: external ear and nose normal, oropharynx normal Neck: trachea midline, no thyromegaly Respiratory: normal respiratory effort, lungs clear to auscultation Cardiovascular: RRR, no murmur, no edema Extremities: + AV fistula (high pitched bruit) Gastrointestinal (Abdomen): normal bowel sounds, soft, nontender, no hepatosplenomegaly Musculoskeletal: Extremities: no cyanosis Skin: no rashes, warm and dry Neurologic: awake; not confused Results & Data Vital Signs (Past 12 Hours) Vital Signs Temp Pulse Pulse Resp BP BP Pulse Ox 05/05/19 08:30 36.9 C 79 17 183/120 H 99 05/05/19 08:01 73 12 96 05/05/19 08:00 72 4 L 161/84 H 96 05/05/19 07:30 77 14 169/84 H 97 05/05/19 07:00 79 12 186/98 H 98 05/05/19 06:15 37.0 C 76 16 96 05/05/19 06:00 76 18 178/93 H 95 05/05/19 05:30 75 18 185/98 H 95 05/05/19 05:00 83 16 188/104 H 97 05/05/19 04:30 78 14 186/98 H 94 05/05/19 04:00 83 13 190/102 H 96 05/05/19 03:30 79 16 192/103 H 94 05/05/19 03:00 83 18 200/104 H 94 05/05/19 02:30 84 16 200/100 H 95 05/05/19 02:00 84 16 199/105 H 95 05/05/19 01:30 90 21 204/104 H 98 05/05/19 01:00 89 19 196/102 H 97 05/05/19 00:30 92 H 16 205/99 H 97 05/05/19 00:00 92 H 14 200/94 H 96 05/04/19 23:36 95 H 05/04/19 23:30 37.3 C 96 H 20 208/92 H 98 05/04/19 23:00 94 H 16 229/106 H 96 05/04/19 22:45 95 H 14 229/108 H 98 05/04/19 22:30 96 H 16 233/107 H 98 05/04/19 22:28 36.4 C L 96 H 235/106 H 05/04/19 22:15 94 H 16 227/106 H 96 05/04/19 22:00 97 H 18 232/107 H 99 05/04/19 21:58 97 H 16 235/106 H 99 05/04/19 21:50 96 H 235/106 H 05/04/19 21:45 98 H 16 227/111 H 100 PG Care Time/CCT Total # of Minutes Spent Total Time Spent with Patient: Total time spent is greater than 50% in multimedia services coordinator rdination of care (as documented) at patient's floor/unit and/or counseling patient:
[2019-05-05] MEDS ORDERED: GLUCOSE 10 TABS/TUBE PO PRN (10:06)
[2019-05-05] MEDS ORDERED: GLUCOSE 40% GEL 15 GM TUBE PO PRN (10:06)
[2019-05-05] MEDS ORDERED: DEXTROSE 50% 50 ML SYRINGE IV PRN (10:06)
[2019-05-05] MEDS ORDERED: CARBOHYDRATES FOR HYPOGLYCEMIA PO PRN (10:06)
[2019-05-05] MEDS ORDERED: GLUCAGON FOR INJ 1 MG VIAL SQ PRN (10:06)
[2019-05-05] MEDS: HydrALAZINE TAB 50 MG TAB PO SCH ×3 (11:14→20:07)
--- NOTE | 2019-05-05 11:14 | Hospitalist Progress Note ---
Date of Service May 05, 2019 Assessment & Plan (1) Hyperkalemia: Severe hyperkalemia with acute T wave changes on the EKG-in the setting of end-stage renal failure on dialysis/missed dialysis sessions Patient admitted yesterday after missing dialysis for 1 week Presents with generalized weakness Lab work shows hyperkalemia potassium 8 With EKG change-peaked T waves noted on V3 V4 and V6 Was admitted to ICU, patient's right arm AV fistula noted to be malfunctioning Status post emergent right IJ catheter placed by assistant service manager Underwent emergent hemodialysis on 05/04/2019 Appreciate input from nephrology Patient does not appear to be volume overloaded Getting repeat dialysis this morning, Potassium level 5.7 morning with improvement of T wave changes and EKG Did not had any arrhythmia overnight Stable to be transferred out of ICU (2) Diabetic nephropathy: -Diabetes, noncompliant with insulin regimen leading to severe diabetic nephropathy end-stage renal disease on dialysis He has been on dialysis since 11/2014, gets dialysis on Tuesday Missed dialysis for last 1 week,(did not feel like going to the dialysis center) Admitted with hyperkalemia potassium 8/with EKG is peaked T wave Patient follows with Dr. Bill Jang physician group nephrology Appreciate input from nephrology Cont to monitor BMP closely May consider another dialysis treatment tomorrow if patient remains persistently hyperkalemic Otherwise patient will be resumed his Tuesday dialysis schedule MALFUNCTION OF RIGHT AV FISTULA Patient has right upper arm AV fistula, unable to use it for dialysis access, noted to have high pitched thrill suggestive of possible stenosis Patient input from assistant service manager, status post emergent right IJ temporary catheter placement patient got emergent dialysis through the right IJ yesterday, repeat dialysis is done this morning Discussed with nephrology Ordered for arterial Doppler of right upper arm/AV fistula ultrasound Ultrasound suggestive of occlusion/stenosis will need vascular surgery consult- for possible PermCath placement prior to patient discharged home (3) Diabetic retinopathy: due to Type 1 diabetes with noncompliance with meds /poor glycemic management Left eye proliferative diabetic nephropathy-status post retinal photocoagulation by Dr. Barnes on 12/11/2018 Patient is counseled repeated times for compliance with insulin, diabetic management, continued dialysis treatment Without that he will end up permanent blindness, (4) Type I diabetes mellitus: Type 1 diabetes insulin-dependent poorly compliant-leading to multiple complications: End-stage renal disease on dialysis due to diabetic nephropathy/diabetic retinopathy/diffuse coronary artery disease/ischemic cardiomyopathy Recent hemoglobin A1c 7.1 Is continued with basal Lantus 15 units at bedtime Insulin sliding scale Counseling provided numerous times for insulin management, compliance, natural resources extension educator consulted Pharmacy consulted for glycemic management TOBACCO ABUSE DISORDER Continues to smoke Is advised repeatedly to quit smoking as he already has multiple comorbidities secondary to diabetes, severe coronary artery disease status post CABG with ischemic cardiomyopathy (5) Hypertensive urgency: Secondary to missed dialysis session/ medication noncompliance : Patient systolic blood pressure was above 200/with diastolic above 100 Blood pressure improved after dialysis Added hydralazine 50 mg p.o. every 8 hours to the current regimen of antihypertensives(patient is on Norvasc 10 mg/losartan 100/Toprol XL 100/clonidine 0.1 mg daily/isosorbide mononitrate 60 mg daily Continue to monitor closely will adjust BP meds as indicated Patient denies of any symptom of chest heaviness, shortness of breath, orthopnea Coronary Artery Disease Status Post CABG Patient had abnormal dobutamine stress echocardiogram on June 08, 2017 Leading to cardiac cath on July 2017: Shows severe multivessel coronary artery disease Underwent coronary artery bypass grafting two-vessel on August 16, 2017 History of ischemic cardiomyopathy, last echocardiogram December 2017: Shows ejection fraction 40-44% Follows with [facility] cardi[facility] At present does not have any anginal symptom No shortness of breath or orthopnea Continue outpatient meds CODE STATUS: Full code DVT prophylaxis, low risk patient is very active at baseline SCD and teds patient is encouraged to ambulate Disposition: Stable to be transferred out of intensive care unit-PCU Will be discharged home when medically stable Will need continued close follow-up with his nephrology patient Subjective Patient seen in ICU room 104 Getting dialysis Does not offer any complaint, awake and alert, oriented, denies of any shortness of breath, chest pain, dizzy spell or lightheadedness No nausea vomiting appetite fair Finished breakfast this morning No fever or chills Physical Exam Constitutional: WD/WN, vitals as above well developed; no acute distress Eyes: PERRL, conjunctivae normal, anicteric sclerae ENMT: external ear and nose normal, oropharynx normal Neck: trachea midline, no thyromegaly Respiratory: normal respiratory effort, lungs clear to auscultation Cardiovascular: RRR, no murmur, no edema Gastrointestinal (Abdomen): Inspection/Auscultation: normal bowel sounds Percussion/Palpation: abdomen soft; abdomen nontender Musculoskeletal: Right upper arm, AV fistula noted, acutely dilated aneurysm present, with high-pitched bruit No overlying erythema, no tenderness Skin: no rashes, warm and dry Neurologic: PERRL, EOMI, accommodation nl, no face palsy, no dysarthria Psychiatric: A+Ox3, euthymic affect Results & Data Vital Signs (Past 12 Hours) Vital Signs Temp Pulse Pulse Resp BP Pulse Ox 05/05/19 11:00 71 175/95 H 05/05/19 10:30 79 175/90 H 05/05/19 10:00 37.0 C 72 05/05/19 08:30 36.9 C 79 17 183/120 H 99 05/05/19 08:01 73 12 96 05/05/19 08:00 72 4 L 161/84 H 96 05/05/19 07:30 77 14 169/84 H 97 05/05/19 07:00 79 12 186/98 H 98 05/05/19 06:15 37.0 C 76 16 96 05/05/19 06:00 76 18 178/93 H 95 05/05/19 05:30 75 18 185/98 H 95 05/05/19 05:00 83 16 188/104 H 97 05/05/19 04:30 78 14 186/98 H 94 05/05/19 04:00 83 13 190/102 H 96 05/05/19 03:30 79 16 192/103 H 94 05/05/19 03:00 83 18 200/104 H 94 05/05/19 02:30 84 16 200/100 H 95 05/05/19 02:00 84 16 199/105 H 95 05/05/19 01:30 90 21 204/104 H 98 05/05/19 01:00 89 19 196/102 H 97 05/05/19 00:30 92 H 16 205/99 H 97 05/05/19 00:00 92 H 14 200/94 H 96 05/04/19 23:36 95 H 05/04/19 23:30 37.3 C 96 H 20 208/92 H 98 (1) Type I diabetes mellitus Diabetes mellitus complication detail: with nephropathy Diabetes mellitus complication status: with kidney complications Qualified Code(s): E10.21 - Type 1 diabetes mellitus with diabetic nephropathy (2) Diabetic retinopathy Diabetes mellitus macular edema: macular edema presence unspecified Diabetes mellitus type: type 1 Diabetic retinopathy severity: with proliferative retinopathy Laterality: left Qualified Code(s): E10.3592 - Type 1 diabetes mellitus with proliferative diabetic retinopathy without macular edema, left eye (3) Diabetic nephropathy Diabetes mellitus type: type 1 Qualified Code(s): E10.21 - Type 1 diabetes mellitus with diabetic nephropathy
[2019-05-05] MEDS: HEPARIN SOD (PORCINE) 1000 UNIT/ML 10 ML VIAL IV SCH (11:56)
[2019-05-05] MEDS: INSULIN ASPART 100 UNITS/ML 3 ML PEN SC SCH ×3 (12:10→21:41)
--- NOTE | 2019-05-05 15:27 | Ultrasound Report ---
US hemodialysis access HISTORY: 33 years-old Male Eval R arm AVF inflow for stenosis COMPARISON: Ultrasound of the right upper extremity 11/08/2017 TECHNIQUE: Multiple real-time sonographic images of the right upper extremity arteriovenous fistula w ere obtained assessing grayscale appearance, color and spectral flow. FINDINGS: Patent arteriovenous fistula of the right upper extremity. Turbulent flow with elevated peak systolic velocity noted about the distal anastomosis with velocities measuring up to 762 cm/s. No thrombus or occlusion. Focal saccular outpouching is again noted adjacent to the distal anastomosis measuring up to 1.4 cm with areas of increased peak systolic velocity. This finding may be secondary to prior per cutaneous access. IMPRESSION: 1. Patent arteriovenous fistula without evidence of thrombus or occlusion. 2. Turbulent flow with elevated peak systolic velocities about the distal anastomosis suggest stenosi s. The above report was generated using voice recognition software. It may contain grammatical, syntax o r spelling errors. Electronically signed by: Elias Hou M.D. 05/05/2019 3:25 PM
[2019-05-05] MEDS: ROSUVASTATIN CALCIUM 20 MG TAB PO SCH (20:07)
[2019-05-05] MEDS: INSULIN GLARGINE SOLOSTAR 100 UNITS/ML 3 ML PEN SQ SCH (21:41)
[2019-05-06] MEDS: HydrALAZINE TAB 50 MG TAB PO SCH ×3 (05:43→20:48)
[2019-05-06 07:12] LABS: Hematocrit (blood only) 31.5 % (42-52); Hemoglobin 10.3 g/dL (14.0-18.0); Mean Corpuscular Hemoglobin 30.1 pg (25-34); Mean Corpuscular Hgb Conc 32.7 g/dL (32-36); Mean Corpuscular Volume 92.1 fL (80-100); Mean Platelet Volume 11.2 fL (7.4-10.4); Platelet Count 160 K/uL (130-400); RDW Coefficient of Variation 14.6 % (11.5-14.5); RDW Standard Deviation 49.4 fL (36.4-46.3); Red Blood Count 3.42 M/uL (4.7-6.1); White Blood Count 6.72 K/uL (4.8-10.8)
[2019-05-06 07:48] LABS: BUN Creatinine Ratio 5.1 (10-20); Calcium 8.8 mg/dl (8.5-10.1); Creatinine Clr Calc Pharmacy 13.4 ml/min; Est GFR (African American) 10.5; Est GFR (Non-African American) 9.1; Potassium 5.2 mmol/L (3.5-5.1)
[2019-05-06] MEDS: CALCIUM ACETATE 667 MG CAP PO SCH ×3 (07:51→18:24)
[2019-05-06] MEDS: METOPROLOL SUCC 50MG EXT REL TAB PO SCH ×2 (07:55→20:49)
[2019-05-06] MEDS: ISOSORBIDE MONO EXTENDED REL 60 MG TABCR PO SCH (07:55)
[2019-05-06] MEDS: AMLODIPINE BESYLATE 5 MG TAB PO SCH (07:55)
[2019-05-06] MEDS: cloNIDine HCl 0.1 MG TAB PO SCH (07:55)
[2019-05-06] MEDS: LOSARTAN POTASSIUM 50 MG TAB PO SCH (07:56)
[2019-05-06] MEDS: INSULIN ASPART 100 UNITS/ML 3 ML PEN SC SCH ×4 (07:57→20:51)
[2019-05-06] MEDS ORDERED: HEPARIN SOD (PORCINE) 1000 UNIT/ML 10 ML VIAL IV ONE (08:53)
[2019-05-06] MEDS ORDERED: SODIUM CHLORIDE 0.9% 1000ML 1,000 ML IV PRN (08:53)
--- NOTE | 2019-05-06 10:07 | Nephrology Progress Note ---
Date of Service May 06, 2019 Assessment & Plan (1) ESRD on hemodialysis: -- Will provide HD today for correction of hyperkalemia and continued UF -- Orders have been entered into EMR and HD RN notified (2) Problem with dialysis access: -- Will use IJ temporary dialysis catheter for HD today -- AVF doppler: Turbulent flow with elevated peak systolic velocities about the distal anastomosis suggest stenosis -- Consult Dr. Caicedo in AM to assess AVF or convert temporary IJ HD catheter to tunneled catheter (3) Hypertension: -- Hydralazine has been added to current BP regimen -- Will attempt 2 - 3 L UF w/ dialysis today. Expect BP to improve w/ UF Subjective Mr. Rebolledo was seen & examined in the PCU this morning. He was dialyzed yest erday for 3 L UF. Temporary IJ THC functioned poorly and catheter was run reversed throughout treatment. Mr. Rebolledo currently denies fever, angina, dyspnea or uremic symptoms. Review of Systems Constitutional: no fever and no chills Eyes: no worsening vision and no problem reported Ear, Nose, Mouth, Throat: no problem reported Respiratory: no cough and no dyspnea Cardiovascular: no chest pain, no palpitations and no edema Gastrointestinal: no abdominal pain and no diarrhea/loose stools Musculoskeletal: no back pain Integumentary: no rash Neurologic: no confusion Physical Exam Constitutional: + thin; not in distress Eyes: PERRL, conjunctivae normal, anicteric sclerae ENMT: external ear and nose normal, oropharynx normal Neck: trachea midline, no thyromegaly R IJ HD catheter exit site without active bleeding Respiratory: normal respiratory effort, lungs clear to auscultation Cardiovascular: RRR, no murmur, no edema Extremities: + AV fistula (high pitched bruit) Gastrointestinal (Abdomen): normal bowel sounds, soft, nontender, no hepatosplenomegaly Musculoskeletal: Extremities: no cyanosis Skin: no rashes, warm and dry Neurologic: awake; not confused Results & Data Vital Signs (Past 12 Hours) Vital Signs Temp Pulse Pulse Resp BP Pulse Ox 05/06/19 09:05 68 05/06/19 07:12 36.9 C 68 20 160/91 H 99 05/06/19 05:38 145/85 H 05/06/19 02:14 36.9 C 71 19 170/92 H 97 05/06/19 01:17 EST 72 11/02/19 23:29 36.7 C 75 20 167/80 H 98 Laboratory Results Laboratory Tests 05/05/19 05/05/19 05/06/19 07:00 07:00 06:38 WBC 5.21 6.72 Hgb 9.9 L 10.3 L Hct 30.1 L 31.5 L Plt Count 160 160 Sodium 135 L Potassium 5.7 H D Chloride 102 Carbon Dioxide 23 BUN 44 H Creatinine 8.70 H* D Glucose 163 H 05/06/19 06:38 WBC Hgb Hct Plt Count Sodium 131 L Potassium 5.2 H Chloride 98 Carbon Dioxide 22 BUN 37 H Creatinine 7.15 H* D Glucose 188 H Diagnostic Findings AVF doppler 05/05/19: Turbulent flow with elevated peak systolic velocities about the distal anastomosis suggest stenosis. PG Care Time/CCT Total # of Minutes Spent Total Time Spent with Patient: Total time spent is greater than 50% in coordination of care (as documented) at patient's floor/unit and/or counseling patient:
--- NOTE | 2019-05-06 17:09 | Hospitalist Progress Note ---
Date of Service May 06, 2019 Assessment & Plan (1) Hyperkalemia: Admitted severe hyperkalemia with acute T wave changes on the EKG-in the setting of end-stage renal failure on dialysis/missed dialysis sessions Patient admitted after missing dialysis for 1 week Presents with generalized weakness Lab work shows hyperkalemia potassium 8 With EKG change-peaked T waves noted on V3 V4 and V6 Was admitted to ICU, patient's right arm AV fistula noted to be malfunctioning Status post emergent right IJ catheter placed by handhole machine operator Underwent emergent hemodialysis Appreciate input from nephrology Patient does not appear to be volume overloaded Hyperkalemia improved after repeated dialysis, Is counseled repeatedly times not to miss dialysis treatment(had previous admission with similar situation-dialysis/hyperkalemia required emergent dialysis) It is agreeable Continue to dialyze and monitoring telemetry as per nephrology: Recommendation (2) Diabetic nephropathy: -Upon diabetes, noncompliant with insulin regimen leading to severe diabet ic nephropathy end-stage renal disease on dialysis He has been on dialysis since 11/2014, gets dialysis on Tuesday History of poor compliance, missing dialysis episodes in the past resulting hospital admission for electrolyte imbalance Missed dialysis for last 1 week,(did not feel like going to the dialysis center) Admitted with hyperkalemia potassium 8/with EKG is peaked T wave Patient follows with Dr. Bill Jang physician group nephrology Appreciate input from nephrology Continue dialysis as per nephrology recommendation MALFUNCTION OF RIGHT AV FISTULA Patient has right upper arm AV fistula, unable to use it for dialysis access, noted to have high pitched thrill suggestive of possible stenosis Patient input from handhole machine operator, status post emergent right IJ temporary catheter placement patient got emergent dialysis through the right IJ yesterday, repeat dialysis is done this morning Discussed with nephrology Ordered for arterial Doppler of right upper arm/AV fistula ultrasound Ultrasound suggestive of occlusion/stenosis (3) Diabetic retinopathy: due to Type 1 diabetes with noncompliance with meds /poor glycemic management Left eye proliferative diabetic nephropathy-status post retinal photocoagulation by Dr. Barnes on 12/11/2018 Patient is counseled repeated times for compliance with insulin, diabetic management, continued dialysis treatment/and blood sugar management Without that he will end up permanent blindness, (4) Type I diabetes mellitus: Type 1 diabetes insulin-dependent poorly compliant-leading to multiple complications: End-stage renal disease on dialysis due to diabetic nephropathy/diabetic retinopathy/diffuse coronary artery disease/ischemic cardiomyopathy Recent hemoglobin A1c 7.1 Is continued with basal Lantus 15 units at bedtime Insulin sliding scale Counseling provided numerous times for insulin management, compliance, steward racetrack consulted Pharmacy consulted for glycemic management TOBACCO ABUSE DISORDER Continues to smoke Is advised repeatedly to quit smoking as he already has multiple comorbidities secondary to diabetes, severe coronary artery disease status post CABG with ischemic cardiomyopathy (5) Hypertensive urgency: Secondary to missed dialysis session/ medication noncompliance : Patient systolic blood pressure was above 200/with diastolic above 100 Blood pressure stable after continued dialysis Added hydralazine 50 mg p.o. every 8 hours to the current regimen of antihypertensives(patient is on Norvasc 10 mg/losartan 100/Toprol XL 100/clonidine 0.1 mg daily/isosorbide mononitrate 60 mg daily Continue to monitor closely will adjust BP meds as indicated Patient denies of any symptom of chest heaviness, shortness of breath, orthopnea Coronary Artery Disease Status Post CABG Patient had abnormal dobutamine stress echocardiogram on June 08, 2017 Leading to cardiac cath on July 2017: Shows severe multivessel coronary artery disease Underwent coronary artery bypass grafting two-vessel on August 16, 2017 History of ischemic cardiomyopathy, last echocardiogram December 2017: Shows ejection fraction 40-44% Follows with [facility] cardiology At present does not have any anginal symptom No shortness of breath or orthopnea Continue outpatient meds CODE STATUS: Full code DVT prophylaxis, low risk patient is very active at baseline SCD and teds patient is encouraged to ambulate Disposition: Will be discharged home when medically stable Will need continued close follow-up with his nephrology patient Subjective Denies of any pain or discomfort, feels much better today blood pressure improved Had repeated dialysis today, Fever chills, no nausea, Energy and appetite back to baseline Physical Exam Constitutional: WD/WN, vitals as above well developed; no acute distress Eyes: PERRL, conjunctivae normal, anicteric sclerae ENMT: external ear and nose normal, oropharynx normal Neck: trachea midline, no thyromegaly Respiratory: normal respiratory effort, lungs clear to auscultation Cardiovascular: RRR, no murmur, no edema Gastrointestinal (Abdomen): Inspection/Auscultation: normal bowel sounds Percussion/Palpation: abdomen soft; abdomen nontender Skin: no rashes, warm and dry Neurologic: PERRL, EOMI, accommodation nl, no face palsy, no dysarthria Psychiatric: A+Ox3, euthymic affect Results & Data Vital Signs (Past 12 Hours) Vital Signs Temp Pulse Pulse Resp BP BP Pulse Ox 05/06/19 16:30 63 163/90 H 05/06/19 16:00 84 163/86 H 05/06/19 15:30 90 134/71 05/06/19 15:00 63 136/69 05/06/19 14:55 36.8 C 64 05/06/19 14:30 68 152/89 H 05/06/19 13:46 36.7 C 64 20 169/91 H 99 05/06/19 11:25 36.8 C 66 16 122/73 98 05/06/19 09:05 68 05/06/19 07:12 36.9 C 68 20 160/91 H 99 05/06/19 05:38 145/85 H (1) Type I diabetes mellitus Diabetes mellitus complication detail: with nephropathy Diabetes mellitus complication status: with kidney complications Qualified Code(s): E10.21 - Type 1 diabetes mellitus with diabetic nephropathy (2) Diabetic retinopathy Diabetes mellitus macular edema: macular edema presence unspecified Diabetes mellitus type: type 1 Diabetic retinopathy severity: with proliferative retinopathy Laterality: left Qualified Code(s): E10.3592 - Type 1 diabetes mellitus with proliferative diabetic retinopathy without macular edema, left eye (3) Diabetic nephropathy Diabetes mellitus type: type 1 Qualified Code(s): E10.21 - Type 1 diabetes mellitus with diabetic nephropathy
[2019-05-06] MEDS: HEPARIN SOD (PORCINE) 1000 UNIT/ML 10 ML VIAL IV SCH (17:41)
[2019-05-06] MEDS: INSULIN GLARGINE SOLOSTAR 100 UNITS/ML 3 ML PEN SQ SCH (20:46)
[2019-05-06] MEDS: ROSUVASTATIN CALCIUM 20 MG TAB PO SCH (20:47)
[2019-05-07 06:35] LABS: Hematocrit (blood only) 33.1 % (42-52); Hemoglobin 10.9 g/dL (14.0-18.0); Mean Corpuscular Hemoglobin 29.7 pg (25-34); Mean Corpuscular Hgb Conc 32.9 g/dL (32-36); Mean Corpuscular Volume 90.2 fL (80-100); Mean Platelet Volume 11.6 fL (7.4-10.4); Platelet Count 147 K/uL (130-400); RDW Coefficient of Variation 14.3 % (11.5-14.5); RDW Standard Deviation 46.8 fL (36.4-46.3); Red Blood Count 3.67 M/uL (4.7-6.1); White Blood Count 8.71 K/uL (4.8-10.8)
[2019-05-07] MEDS: HydrALAZINE TAB 50 MG TAB PO SCH ×3 (07:06→20:12)
[2019-05-07 07:28] LABS: BUN Creatinine Ratio 5.6 (10-20); Calcium 8.4 mg/dl (8.5-10.1); Creatinine Clr Calc Pharmacy 14.4 ml/min; Est GFR (African American) 11.4; Est GFR (Non-African American) 9.8
[2019-05-07] MEDS: INSULIN ASPART 100 UNITS/ML 3 ML PEN SC SCH ×4 (08:11→20:42)
[2019-05-07] MEDS: ISOSORBIDE MONO EXTENDED REL 60 MG TABCR PO SCH (08:12)
[2019-05-07] MEDS: LOSARTAN POTASSIUM 50 MG TAB PO SCH (08:12)
[2019-05-07] MEDS: CALCIUM ACETATE 667 MG CAP PO SCH ×3 (08:12→16:43)
[2019-05-07] MEDS: METOPROLOL SUCC 50MG EXT REL TAB PO SCH ×2 (08:12→20:39)
[2019-05-07] MEDS: AMLODIPINE BESYLATE 5 MG TAB PO SCH (08:13)
[2019-05-07] MEDS: cloNIDine HCl 0.1 MG TAB PO SCH (08:18)
[2019-05-07] MEDS ORDERED: SODIUM CHLORIDE 0.9% 1000ML 1,000 ML IV PRN (08:46)
--- NOTE | 2019-05-07 09:46 | Consultation ---
Date of Consultation May 07, 2019 Assessment & Plan (1) ESRD on dialysis: Pt's US reviewed by Dr Caicedo. Recommend pt attempt use of AVF today. If unable to use, will be happy to place an IJ TDC in OR tomorrow. Pt will need to follow up with his usual vascular surgeon at [facility] electively for his AVF. Please call if needed. History of Present Illness Reason for Consultation: malfunctioning RUE AVF Attending Physician: Flakita Abraham MD History of Present Illness 33 yo m with ESRD on HD, IDDM, HTN, CAD with cabg x2, dyslipidemia, admitted with severe hyperkalemia after missing 1 week of HD d/t noncompliance, seen in consultation today for malfunctioning RUE upper arm AVF. Pt states this is is his second AVF, first was a R wrist AVF that failed to mature. Pt states this AVF has been used for 2 yrs with minimal problems. States he had not been having any issues running outpt prior to arrival here, but that the HD staff here was unable to get his AVF to run correctly this weekend, so a R IJ temp line was placed. Pt admits fatigue/malaise, but denies fever, chills, chest pain, SOB, abd pain, N/V, rest pain, claudication, other complaints. HD access US demonstrates elevated velocities at anastomosis, but does not eval for flow volume. Allergies Allergy/AdvReac Type Severity Reaction Status Date / Time No Known Allergies Allergy NKA Verified 03/10/19 10:30 Home Medications Home Medications Medication Instructions Recorded Confirmed Type Lantus U-100 Insulin 15 unit SUBCUT HS 11/08/18 05/04/19 History amlodipine 10 mg PO DAILY 11/08/18 05/04/19 History calcium acetate 1,334 mg PO TIDM 11/08/18 05/04/19 History clonidine HCl 0.1 mg PO DAILY 11/08/18 05/04/19 History insulin lispro [Humalog U-100 0 unit SUBCUT TIDM 11/08/18 05/04/19 History Insulin] losartan 100 mg PO DAILY 11/08/18 05/04/19 History isosorbide mononitrate 60 mg PO QAM 03/10/19 05/04/19 History metoprolol succinate ER 100 mg 100 mg PO BID #180 tab 03/14/19 05/04/19 Rx tablet,extended release 24 hr rosuvastatin 40 mg tablet 40 mg PO HS #90 tab 03/14/19 05/04/19 Rx hydrocodone-acetaminophen 1 tab PO Q6H PRN 05/04/19 05/04/19 History Patient History Medical History Macular degeneration (Chronic) Diastolic dysfunction (Chronic) Ischemic cardiomyopathy (Chronic) Initial EF 20%, echo 01/2019 EF 50 to 54% Dyslipidemia (Chronic) ESRD on dialysis (Chronic) Diabetic nephropathy (Chronic) Diabetic retinopathy (Chronic) Type I diabetes mellitus (Chronic) Hypertension (Chronic) Dyslipidemia (Chronic) ESRD on hemodialysis (Chronic) TUESDAY/TUE/TUESDAY ([place]) CAD (coronary artery disease) (Chronic) Surgical History History of tooth extraction (Chronic) S/P CABG x 2 (Chronic) Family History Mother Family history of diabetes mellitus Kidney disease Father Family history of diabetes mellitus Kidney disease Social History Preferred Language: Bahamian Communication Ability: Effective Appraiser Personal Property Required: No Beliefs That Will Affect Care: None marital status: Single Current Living Situation: Family Other Information That Helps Us Care for You: No Feels Safe at Home: Yes Smoking Status: Heavy tobacco smoker Tobacco Type: cigarettes ; Cigarettes Per Day: 30 ; Do You Dip or Chew Tobacco: No ; Second Hand Exposure: No ; Tobacco Cessation Education Requested by Patient: No Hx Alcohol Use: No Hx Substance Use: No Review of Systems Review of Systems: All systems reviewed & are unremarkable except as noted in HPI & below Physical Exam Constitutional: WD/WN, vitals as above cooperative; + not healthy appearing and not in distress Eyes: PERRL, conjunctivae normal, anicteric sclerae ENMT: external ear and nose normal, oropharynx normal Ears: no hearing impairment Neck: trachea midline Respiratory: normal respiratory effort, lungs clear to auscultation Cardiovascular: Rate/Rhythm: regular rate and regular rhythm Vessels: femoral pulses present, posterior tibial pulses present, dorsalis pedis pulses present, brachial pulses present and radial pulses present; + abnormal peripheral pulses Extremities: + edema and + AV fistula (RUE + thrill/bruit t hroughout, proximal venous aneurysm noted) Gastrointestinal (Abdomen): normal bowel sounds, soft, nontender, no hepatosplenomegaly Musculoskeletal: no cyanosis or clubbing, extremities motor strength 5/5 Skin: no rashes, warm and dry Neurologic: moves all extremities and awake; no focal motor deficits, not confused and not obtunded Psychiatric: Orientation: alert and oriented x 3 Affect: + depressed affect and + flat affect Results & Data Vital Signs (Past 12 Hours) Vital Signs Temp Pulse Pulse Resp BP Pulse Ox 05/07/19 09:00 183/86 H 05/07/19 07:39 36.9 C 65 18 188/88 H 100 05/07/19 04:48 67 05/07/19 03:17 36.8 C 74 16 136/75 98 05/06/19 23:09 36.7 C 66 16 169/88 H 99
--- NOTE | 2019-05-07 09:51 | Nephrology Progress Note ---
Date of Service May 07, 2019 Assessment & Plan (1) ESRD on hemodialysis: (2) Problem with dialysis access: (3) Hypertension: 33-year-old young male with end-stage renal disease on hemodialysis Tuesday, Tuesday, Tuesday. Admitted to the hospital after he missed dialysis for 1 whole week, feeling poorly and volume overloaded with blood pressure running high. Potassium was 8.1 on admission. Required emergency dialysis on Tuesday and Tuesday. Initially had issues with AV fistula and had tunnel dialysis catheter placed. Doppler showed concern for artery stenosis. Vascular surgery was consulted who unfortunately cannot do fistulogram here as it is considered as a elective procedure. --will try to use the AV fistula today if AV fistula can be used successfully, will request intensive care unit to remove the temporary dialysis catheter.. --if AV fistula failed to work, then will dialysis today with temporary catheter and vascular surgery will put a tunneled catheter tomorrow and he will have to be scheduled for fistulogram as an outpatient at [facility] --dose medications for GFR less than 10, continue on phosphate binders. --continue on current antihypertensive medications and hopefully blood pressure will continue to improve with UF and going back to his dry weight Will follow Subjective Yariel was seen and examined in his room this morning. He currently denies any shortness of breath, chest pain. Denies headache or visual changes. Afebrile. Blood pressure is still running high. Potassium this morning normal. Review of Systems Review of Systems: All systems reviewed & are unremarkable except as noted in HPI & below Physical Exam Constitutional: well developed and well nourished; no acute distress Respiratory: normal respiratory effort, lungs clear to auscultation Cardiovascular: RRR, no murmur, no edema Neurologic: moves all extremities and awake; not confused Psychiatric: A+Ox3, euthymic affect Results & Data Vital Signs (Past 12 Hours) Vital Signs Temp Pulse Pulse Resp BP Pulse Ox 05/07/19 09:00 183/86 H 05/07/19 07:39 36.9 C 65 18 188/88 H 100 05/07/19 04:48 67 05/07/19 03:17 36.8 C 74 16 136/75 98 05/06/19 23:09 36.7 C 66 16 169/88 H 99 PG Care Time/CCT Total # of Minutes Spent Total Time Spent with Patient: Total time spent is greater than 50% in coordination of care (as documented) at patient's floor/unit and/or counseling patient:
--- NOTE | 2019-05-07 16:21 | Critical Care Progress Note ---
Date of Service May 07, 2019 Assessment & Plan (1) ESRD on hemodialysis: I removed the 16 cm dialysis catheter and held pressure for approximately 4 minutes. Patient tolerated the procedure well. Subjective Patient without complaint this morning. Reports that it is his understanding he no longer needs his temporary HD catheter, he was able to complete dialysis from his AV fistula today Review of Systems Review of Systems: No fevers no chills, tolerated dialysis Physical Exam Physical Exam: General: Alert. nontoxic. Skin: Warm, dry, dressed temporary HD catheter in the right neck without evidence of purulence Head: Atraumatic Ears, nose, mouth and throat: airway patent Cardiovascular: Normal peripheral perfusion Respiratory: no respiratory distress Gastrointestinal: Non distended Musculoskeletal: No deformity Results & Data Vital Signs (Past 12 Hours) Vital Signs Temp Pulse Pulse Pulse Resp BP BP 05/07/19 15:42 68 05/07/19 15:40 36.3 C L 68 18 101/64 05/07/19 14:07 36.7 C 67 157/88 H 05/07/19 13:41 68 125/74 05/07/19 13:20 69 125/74 05/07/19 13:00 69 132/79 05/07/19 12:40 68 149/84 H 05/07/19 12:20 68 153/85 H 05/07/19 12:00 68 135/80 05/07/19 11:40 68 146/82 H 05/07/19 11:20 68 149/82 H 05/07/19 11:00 68 135/89 05/07/19 10:40 66 167/92 H 05/07/19 10:20 67 131/73 05/07/19 10:00 66 137/73 05/07/19 09:47 65 146/79 H 05/07/19 09:38 37.0 C 05/07/19 09:00 183/86 H 05/07/19 07:39 36.9 C 65 18 188/88 H 05/07/19 06:45 65 05/07/19 04:48 67 Pulse Ox 05/07/19 15:42 05/07/19 15:40 100 05/07/19 14:07 05/07/19 13:41 05/07/19 13:20 05/07/19 13:00 05/07/19 12:40 05/07/19 12:20 05/07/19 12:00 05/07/19 11:40 05/07/19 11:20 05/07/19 11:00 05/07/19 10:40 05/07/19 10:20 05/07/19 10:00 05/07/19 09:47 05/07/19 09:38 05/07/19 09:00 05/07/19 07:39 100 05/07/19 06:45 05/07/19 04:48 Coding Level of Care Code 61616 Subseq Hosp Care Lvl 1 Diagnoses ESRD on hemodialysis N18.6; Z99.2
--- NOTE | 2019-05-07 18:25 | Hospitalist Progress Note ---
Date of Service May 07, 2019 Assessment & Plan (1) Hyperkalemia: Admitted with severe hyperkalemia with acute T wave changes on the EKG-in the setting of end-stage renal failure on dialysis/missed dialysis sessions for 1 week Presents with generalized weakness Lab work shows hyperkalemia potassium 8 With EKG change-peaked T waves noted on V3 V4 and V6 Was admitted to ICU, patient's right arm AV fistula noted to be malfunctioning Status post emergent right IJ catheter placed by customer experience analyst Patient had dialysis today using AV fistula Right IJ temporary catheter removed Since next scheduled dialysis is on 05/09/2019 Plan to discharge home tomorrow if remains medically stable (2) Diabetic nephropathy: -Diabetes, noncompliant with insulin regimen leading to severe diabetic nephropathy end-stage renal disease on dialysis He has been on dialysis since 11/2014, gets dialysis on Tuesday Missed dialysis for last 1 week,(did not feel like going to the dialysis center) Admitted with hyperkalemia potassium 8/with EKG is peaked T wave Patient follows with Dr. Bill Jang physician group nephrology Appreciate input from nephrology Is post dialysis today Plan to discharge home tomorrow to resume his Tuesday dialysis schedule MALFUNCTION OF RIGHT AV FISTULA Resolved, Able to utilize right upper a.m. if his fistula for dialysis today (3) Diabetic retinopathy: due to Type 1 diabetes with noncompliance with meds /poor glycemic management Left eye proliferative diabetic nephropathy-status post retinal photocoagulation by Dr. Barnes on 12/11/2018 Patient is counseled repeated times for compliance with insulin, diabetic management, continued dialysis treatment Without that he will end up permanent blindness, (4) Type I diabetes mellitus: Type 1 diabetes insulin-dependent poorly compliant-leading to multiple complications: End-stage renal disease on dialysis due to diabetic nephropathy/diabetic retinopathy/diffuse coronary artery disease/ischemic cardiomyopathy Recent hemoglobin A1c 7.1 Is continued with basal Lantus 15 units at bedtime Insulin sliding scale Counseling provided numerous times for insulin management, compliance, art educator consulted Pharmacy consulted for glycemic management-appreciate input TOBACCO ABUSE DISORDER Continues to smoke Is advised repeatedly to quit smoking as he already has multiple comorbidities secondary to diabetes, severe coronary artery disease status post CABG with ischemic cardiomyopathy (5) Hypertensive urgency: BP stabilized: SBP between [id number] Resented with hypertensive urgency Patient systolic blood pressure was above 200/with diastolic above 100 Secondary to missed dialysis session/ medication noncompliance : Back to back dialysis treatment Added hydralazine 50 mg p.o. every 8 hours to the current regimen of antihypertensives(patient is on Norvasc 10 mg/losartan 100/Toprol XL 100/clonidine 0.1 mg daily/isosorbide mononitrate 60 mg daily Continue to monitor closely will adjust BP meds as indicated Patient denies of any symptom of chest heaviness, shortness of breath, orthopnea Coronary Artery Disease Status Post CABG Patient had abnormal dobutamine stress echocardiogram on June 08, 2017 Leading to cardiac cath on July 2017: Shows severe multivessel coronary artery disease Underwent coronary artery bypass grafting two-vessel on August 16, 2017 History of ischemic cardiomyopathy, last echocardiogram December 2017: Shows ejection fraction 40-44% Follows with [facility] cardiology At present does not have any anginal symptom No shortness of breath or orthopnea Continue outpatient meds CODE STATUS: Full code DVT prophylaxis, low risk patient is very active at baseline SCD and teds patient is encouraged to ambulate Disposition: Possible discharge home tomorrow if remains medically stable Will need continued close follow-up with his nephrology patient Subjective Patient had dialysis today, able to use AV fistula, Right IJ temporary catheter removed by customer experience analyst Blood pressure remains stable Hyperkalemia resolved Patient denies of any discomfort, no shortness of breath no chest heaviness no orthopnea, no fever or chills Physical Exam Constitutional: WD/WN, vitals as above well developed; no acute distress Eyes: PERRL, conjunctivae normal, anicteric sclerae ENMT: external ear and nose normal, oropharynx normal Neck: trachea midline, no thyromegaly Respiratory: normal respiratory effort, lungs clear to auscultation Cardiovascular: RRR, no murmur, no edema Gastrointestinal (Abdomen): Inspection/Auscultation: normal bowel sounds Percussion/Palpation: abdomen soft; abdomen nontender Skin: no rashes, warm and dry Neurologic: PERRL, EOMI, accommodation nl, no face palsy, no dysarthria Psychiatric: A+Ox3, euthymic affect Results & Data Vital Signs (Past 12 Hours) Vital Signs Temp Pulse Pulse Pulse Resp BP BP 05/07/19 15:42 68 05/07/19 15:40 36.3 C L 68 18 101/64 05/07/19 14:07 36.7 C 67 157/88 H 05/07/19 13:41 68 125/74 05/07/19 13:20 69 125/74 05/07/19 13:00 69 132/79 05/07/19 12:40 68 149/84 H 05/07/19 12:20 68 153/85 H 05/07/19 12:00 68 135/80 05/07/19 11:40 68 146/82 H 05/07/19 11:20 68 149/82 H 05/07/19 11:00 68 135/89 05/07/19 10:40 66 167/92 H 05/07/19 10:20 67 131/73 05/07/19 10:00 66 137/73 05/07/19 09:47 65 146/79 H 05/07/19 09:38 37.0 C 05/07/19 09:00 183/86 H 05/07/19 07:39 36.9 C 65 18 188/88 H 05/07/19 06:45 65 Pulse Ox 05/07/19 15:42 05/07/19 15:40 100 05/07/19 14:07 05/07/19 13:41 05/07/19 13:20 05/07/19 13:00 05/07/19 12:40 05/07/19 12:20 05/07/19 12:00 05/07/19 11:40 05/07/19 11:20 05/07/19 11:00 05/07/19 10:40 05/07/19 10:20 05/07/19 10:00 05/07/19 09:47 05/07/19 09:38 05/07/19 09:00 05/07/19 07:39 100 05/07/19 06:45 (1) Type I diabetes mellitus Diabetes mellitus complication detail: with nephropathy Diabetes mellitus complication status: with kidney complications Qualified Code(s): E10.21 - Type 1 diabetes mellitus with diabetic nephropathy (2) Diabetic retinopathy Diabetes mellitus macular edema: macular edema presence unspecified Diabetes mellitus type: type 1 Diabetic retinopathy severity: with proliferative retinopathy Laterality: left Qualified Code(s): E10.3592 - Type 1 diabetes mellitus with proliferative diabetic retinopathy without macular edema, left eye (3) Diabetic nephropathy Diabetes mellitus type: type 1 Qualified Code(s): E10.21 - Type 1 diabetes mellitus with diabetic nephropathy
[2019-05-07] MEDS: ROSUVASTATIN CALCIUM 20 MG TAB PO SCH (20:41)
[2019-05-07] MEDS: INSULIN GLARGINE SOLOSTAR 100 UNITS/ML 3 ML PEN SQ SCH (20:41)
[2019-05-08] MEDS: HydrALAZINE TAB 50 MG TAB PO SCH (05:59)
[2019-05-08] MEDS: AMLODIPINE BESYLATE 5 MG TAB PO SCH (08:31)
[2019-05-08] MEDS: CALCIUM ACETATE 667 MG CAP PO SCH ×2 (08:31→12:18)
[2019-05-08] MEDS: METOPROLOL SUCC 50MG EXT REL TAB PO SCH (08:32)
[2019-05-08] MEDS: ISOSORBIDE MONO EXTENDED REL 60 MG TABCR PO SCH (08:32)
[2019-05-08] MEDS: LOSARTAN POTASSIUM 50 MG TAB PO SCH (08:32)
[2019-05-08] MEDS: INSULIN ASPART 100 UNITS/ML 3 ML PEN SC SCH ×2 (08:36→12:20)
[2019-05-08] MEDS: cloNIDine HCl 0.1 MG TAB PO SCH (08:58)
--- NOTE | 2019-05-08 11:57 | Nephrology Progress Note ---
Date of Service May 08, 2019 Assessment & Plan (1) ESRD on hemodialysis: -- Will provide HD today for correction of hyperkalemia and continued UF -- Orders have been entered into EMR and HD RN notified (2) Problem with dialysis access: -- Will use IJ temporary dialysis catheter for HD today -- AVF doppler: Turbulent flow with elevated peak systolic velocities about the distal anastomosis suggest stenosis -- Consult Dr. Caicedo in AM to assess AVF or convert temporary IJ HD catheter to tunneled catheter (3) Hypertension: 33-year-old young male with end-stage renal disease on hemodialysis M , Tuesday, Tuesday. Admitted to the hospital after he missed dialysis for 1 whole week, feeling poorly and volume overloaded with blood pressure running high. Potassium was 8.1 on admission. Required emergency dialysis on Tuesday and Tuesday. Initially had issues with AV fistula and had tunnel dialysis catheter placed. Doppler showed concern for artery stenosis. Vascular surgery was consulted who unfortunately cannot do fistulogram here as it is considered as a elective procedure. Had dialysis today via AV fistula and temporary catheter was removed. Currently blood pressure, electrolyte volume status acceptable. --patient is okay to be discharged from Nephrology standpoint, next dialysis tomorrow, can be done at the outpatient facility. --dose medications for GFR less than 10, continue on phosphate binders. --continue on current antihypertensive medications and hopefully blood pressure will continue to improve with UF and going back to his dry weight Will follow Subjective Yariel was seen and examined in his room this morning. He currently denies any shortness of breath, chest pain. Denies headache or visual changes. Afebrile. Blood pressure better. Potassium this morning normal. Had dialysis yesterday uneventful, av fistula worked well after dialysis temporary catheter was removed Review of Systems Review of Systems: All systems reviewed & are unremarkable except as noted in HPI & below Physical Exam Constitutional: well developed and well nourished; no acute distress Respiratory: normal respiratory effort, lungs clear to auscultation Cardiovascular: RRR, no murmur, no edema Neurologic: moves all extremities and awake; not confused Psychiatric: A+Ox3, euthymic affect Results & Data Vital Signs (Past 12 Hours) Vital Signs Temp Pulse Pulse Pulse Resp BP Pulse Ox 05/08/19 11:15 36.5 C 64 17 135/77 98 05/08/19 07:25 36.7 C 64 17 152/85 H 99 05/08/19 05:51 36.7 C 63 14 148/85 H 99 05/08/19 03:18 36.5 C 62 14 162/96 H 99 05/08/19 01:00 70 PG Care Time/CCT Total # of Minutes Spent Total Time Spent with Patient: Total time spent is greater than 50% in coordination of care (as documented) at patient's floor/unit and/or counseling patient:
--- NOTE | 2019-05-08 14:42 | Discharge Summary ---
Date of Service May 08, 2019 Admission HPI Per Admitting Provider 33-year-old male who presents to the ED for evaluation of generalized weakness. Patient has ESRD and is on dialysis. Reports missing dialysis for the past 1 week. Reports he initially missed because he simply did not feel like going and then developed generalized weakness and was unable to get a bed. Patient reports increasing lower extremity edema. He denies chest pain and shortness of breath. He has had some lightheadedness and dizziness but denies any syncopal event. Appetite has been poor however he denies abdominal pain, nausea, vomiting, diarrhea. No other recent illnesses, fevers, chills. He reports he makes very little urine. In the ED, patient is found to have critical hyperkalemia with K+ 8.0, EKG showing peaked T waves. Nephrology was consulted and patient will be admitted to ICU and undergo emergent dialysis. Principal Diagnosis Missed dialysis, hyperkalemia, hypertensive urgency-resolved after emergent dialysis Type 1 diabetes insulin-dependent Discharge Exam Constitutional WD/WN, vitals as above Eyes PERRL, conjunctivae normal, anicteric sclerae ENMT external ear and nose normal, oropharynx normal Neck trachea midline, no thyromegaly Respiratory normal respiratory effort, lungs clear to auscultation Cardiovascular RRR, no murmur, no edema Gastrointestinal (Abdomen) normal bowel sounds, soft, nontender, no hepatosplenomegaly Musculoskeletal no cyanosis or clubbing, extremities motor strength 5/5 Skin no rashes, warm and dry Neurologic PERRL, EOMI, accommodation nl, no face palsy, no dysarthria Psychiatric A+Ox3, euthymic affect Discharge Data Allergies Allergy/AdvReac Type Severity Reaction Status Date / Time No Known Allergies Allergy NKA Verified 03/10/19 10:30 Consultations 05/04/19 14:41 ED Decision to Admit Stat 05/04/19 15:53 Consult Netbackup Engineer Routine Consult Nephrology Routine 05/04/19 17:30 Consult Vascular Surgery Routine Ordered Studies 05/04/19 16:32 US point of care ultrasound Urgent 05/05/19 09:41 US hemodialysis access Routine Hospital Course (1) Hyperkalemia: Potassium level normalized Admitted with severe hyperkalemia with acute T wave changes on the EKG-in the setting of end-stage renal failure on dialysis/missed dialysis sessions for 1 week Presents with generalized weakness Lab work shows hyperkalemia potassium 8 With EKG change-peaked T waves noted on V3 V4 and V6 Was admitted to ICU, patient's right arm AV fistula noted to be malfunctioning Status post emergent right IJ catheter placed by control tower operator Patient had dialysis using AV fistula Right IJ temporary catheter removed Since next scheduled dialysis is on 05/09/2019 Stable to be discharged home today (2) Diabetic nephropathy: -Diabetes, noncompliant with insulin regimen leading to severe diabetic nephropathy end-stage renal disease on dialysis He has been on dialysis since 11/2014, gets dialysis on Tuesday Missed dialysis for last 1 week,(did not feel like going to the dialysis center) Admitted with hyperkalemia potassium 8/with EKG is peaked T wave Patient follows with Dr. Bill Jang [facility] nephrology Appreciate input from nephrology Had dialysis on 05/07/2019 Plan to discharge home today to resume his Tuesday dialysis schedule MALFUNCTION OF RIGHT AV FISTULA Resolved, Able to utilize right upper a.m. if his fistula for dialysis today (3) Diabetic retinopathy: due to Type 1 diabetes with noncompliance with meds /poor glycemic management Left eye proliferative diabetic nephropathy-status post retinal photocoagulation by Dr. Barnes on 12/11/2018 Patient is counseled repeated times for compliance with insulin, diabetic management, continued dialysis treatment/and blood sugar management Without that he will end up permanent blindness, (4) Type I diabetes mellitus: Type 1 diabetes insulin-dependent poorly compliant-leading to multiple complications: End-stage renal disease on dialysis due to diabetic nephropathy/diabetic retinopathy/diffuse coronary artery disease/ischemic cardiomyopathy Recent hemoglobin A1c 7.1 Is continued with basal Lantus 15 units at bedtime Insulin sliding scale Counseling provided numerous times for insulin management, compliance, 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 every 8 hours to the current regimen of antihypertensives(patient is on Norvasc 10 mg/losartan 100/Toprol XL 100/clonidine 0.1 mg daily/isosorbide mononitrate 60 mg daily Continue to monitor closely will adjust BP meds as indicated Patient denies of any symptom of chest heaviness, shortness of breath, orthopnea Coronary Artery Disease Status Post CABG Patient had abnormal dobutamine stress echocardiogram on June 08, 2017 Leading to cardiac cath on July 2017: Shows severe multivessel coronary artery disease Underwent coronary artery bypass grafting two-vessel on August 16, 2017 History of ischemic cardiomyopathy, last echocardiogram December 2017: Shows ejection fraction 40-44% Follows with [facility] cardiology At present does not have any anginal symptom No shortness of breath or orthopnea Continue outpatient meds CODE STATUS: Full code DVT prophylaxis, low risk patient is very active at baseline SCD and teds patient is encouraged to ambulate Disposition: To be discharged home today Will need continued close follow-up with his nephrology patient Total Time Total Time Spent Total Time Spent (In Minutes): Approximately 45 minutes Total Time Includes: Examination of the Patient, Discharge Planning and Medication Reconciliation Discharge Plan Discharge Items Patient Disposition: Home - Self-Care Reason For Visit: ESRD ON DIALYSIS,HYPERTENSION Discharge Diagnosis: Missed dialysis, hyperkalemia, hypertensive urgency-resolved after emergent dialysis Type 1 diabetes insulin-dependent Activity: Resume your previous activity Non-emergency contact: Primary Care Provider Call non-emergency contact if: you have any medication questions Follow-up/Referrals: Mckinley Douglas MD [Primary Care Provider] - Diet: Carb Consistent or DM2, Dialysis Renal and Low Potassium (2gm) Addtl Attending Provider Instructions: Hospital follow-up with Dr. Lopes on 05/11/2019 at 1 PM Follow-up with your vice president medical affairs in 1-2 weeks, please call office to schedule an appointment It is very important for you to have dialysis Tuesday as scheduled, Missing dialysis treatment can cause you life threatening emergencies-can cause multiple complications including Please continue to take insulin as directed, having your diabetes under controlled, good blood sugar management prevent you to have another heart attack, stroke losing vision You may benefit with referral to diabetic/MTM clinic at [facility] You will be able to get more intensive/close monitoring of your current regimen and blood sugar control Please follow diabetic diet-improve blood sugar control New medication: Hydralazine 50 mg/take 1 tablet daily every 8 hours: For high blood pressure Pending Studies at Discharge: No Stand-Alone Forms: [facility] [employer], Smoking Cessation Medications and DC Order Prescriptions: New hydralazine 50 mg Tablet 50 mg PO Q8 30 Days Qty: 90 RF: 3 Continued rosuvastatin 40 mg tablet 40 mg PO HS Qty: 90 RF: 3 metoprolol succinate 100 mg tablet extended release 24 hr 100 mg PO BID Qty: 180 RF: 3 isosorbide mononitrate 60 mg tablet extended release 24 hr 60 mg PO QAM RF: 0 hydrocodone-acetaminophen 5-325 mg tablet 1 tab PO Q6H PRN (Reason: Pain) RF: 0 amlodipine 10 mg tablet 10 mg PO DAILY RF: 0 clonidine HCl 0.1 mg tablet 0.1 mg PO DAILY RF: 0 Lantus U-100 Insulin 100 unit/mL solution 15 unit subcut HS RF: 0 insulin lispro [Humalog U-100 Insulin] 100 unit/mL solution subcut TIDM RF: 0 losartan 100 mg tablet 100 mg PO DAILY RF: 0 calcium acetate 667 mg capsule 1,334 mg PO TIDM RF: 0 Discharge Orders: Discharge Order (Routine); Ordered 05/08/19 Ordered By: Flakita Amaya/Other Patient Handouts: Diabetes Resources, Diabetes Type 1 Coping, Diabetes Healthy Meals, Diabetes Carbs, Diabetes Eating Out, Diabetes Shopping Preparing Meals, Diabetes Exercise Benefits, Diabetes Exercise Plan, Diabetes Meal Planning, Diabetes Carbs Fats Protein, Diabetes Get Support, Diabetes Manage Stress, Diabetes Type 1 Get Active, Diabetes Type 1 Admission Data Admit Date/Time: 05/04/19 15:38 Attending Provider: Flakita Abraham Admit Provider: Jj Brink Primary Care Provider: Mckinley Douglas Other Providers: Jj Brink ; Libby Ortega Kevin C. ; Collins Caicedo Other Interventions: Discharge Summary Assessment (RN) Last Done: 05/08/19 12:31 DC Date/Time DO NOT enter until pt leaves facility: 05/08/19 13:15
== END 2019-05-08 13:15 | disposition home or self-care (01) | DRG 640 ==
LOC: ED 13:49 → 1E 15:38 → SUATTDRO 15:38 → 1E 15:40 → 2S 05-05 14:43

== ENCOUNTER 2019-09-30 19:28 | Inpatient (IN) ==
[2019-09-30] MEDS ORDERED: MoRPHine SULFATE 2 MG/ML CARP IV STA ×3 (19:42→20:44)
[2019-09-30 19:52] LABS: Basophils # (auto) 0.11 K/uL (0-0.2); Basophils % (auto) 1.2 %; Eosinophils # (auto) 0.39 K/uL (0-0.5); Eosinophils % (auto) 4.3 %; Hemoglobin 7.7 g/dL (14.0-18.0); Immature Granulocytes # (auto) 0.03 K/uL (0.00-0.02); Immature Granulocytes % (auto) 0.3 %; Lymphocytes # (auto) 1.24 K/uL (1.2-3.4); Lymphocytes % (auto) 13.6 %; Mean Corpuscular Hemoglobin 31.4 pg (25-34); Mean Corpuscular Hgb Conc 33.5 g/dL (32-36); Mean Corpuscular Volume 93.9 fL (80-100); Mean Platelet Volume 9.8 fL (7.4-10.4); Monocytes # (auto) 0.46 K/uL (0.11-0.59); Neutrophils # (auto) 6.92 K/uL (1.4-6.5); Neutrophils % (auto) 75.6 %; Platelet Count 307 K/uL (130-400); RDW Coefficient of Variation 15.5 % (11.5-14.5); RDW Standard Deviation 54.4 fL (36.4-46.3); Red Blood Count 2.45 M/uL (4.7-6.1); White Blood Count 9.15 K/uL (4.8-10.8)
--- NOTE | 2019-09-30 19:55 | Emergency Department Note ---
History of Present Illness General Chief complaint: Chest Pain Time Seen by Provider: 09/30/19 19:29 Source: patient and EMS Mode of arrival: EMS Limitations: no limitations History of Present Illness This patient comes in by EMS after complaining of chest pain. It is in his left side of chest. It started around 430 after he was doing physical therapy and his blood sugar got low. He ate something to bring it up and he still had the pain. He has not taken anything separate aspirin which he had prior to arrival. If this pain is sharp it goes up into his neck it hurts worse with movement and breathing. He was hospitalized in [place] from August through September 11 after having cardiac arrest that sounds like it was likely secondary to missed dialysis. He had did have a prolonged stay in the unit and has been recuperating from a physical and neurologic standpoint. He does get dialysis Tuesday, Tuesday, Tuesday has not missed any dialysis. He denies any shortness of breath. No leg pain he has had some edema. He has a weight gain over the weekend of about 10 pounds. His blood sugar was 424 in the ambulance and the check this after he ate dinner again he said he was low earlier. No trauma to the chest. No focal numbness or weakness. Denies being on blood thinner Home Medications Home Medications Medication Instructions Recorded Confirmed Type clonidine HCl 0.3 mg PO QAM 11/08/18 09/30/19 History losartan 100 mg PO QAM 11/08/18 09/30/19 History Nephrocaps 1 cap PO QDL 09/30/19 09/30/19 History acetaminophen [Tylenol] 650 mg PO Q4H PRN 09/30/19 09/30/19 History amlodipine 10 mg PO QAM 09/30/19 09/30/19 History aspirin [Aspirin Childrens] 81 mg PO QAM 09/30/19 09/30/19 History atorvastatin 20 mg PO HS 09/30/19 09/30/19 History bisacodyl 10 mg RI DAILY PRN 09/30/19 09/30/19 History carvedilol 25 mg PO BIDM 09/30/19 09/30/19 History clopidogrel 75 mg PO QAM 09/30/19 09/30/19 History darbepoetin kelly in polysorbat 200 mcg SUBCUT .Q7DAYS 09/30/19 09/30/19 History [Aranesp (in polysorbate)] docusate sodium 100 mg PO BID 09/30/19 09/30/19 History famotidine 20 mg PO QAM 09/30/19 09/30/19 History heparin (porcine) 1,000 unit IV DIRECTED PRN 09/30/19 09/30/19 History insulin glargine [Lantus U-100 12 unit SUBCUT HS 09/30/19 09/30/19 History Insulin] insulin regular human [Humulin R 1 sliding scale dose SUBCUT TIDM 09/30/19 09/30/19 History Regular U-100 Insuln] iron sucrose [Venofer] 100 mg IV WK PRN 09/30/19 09/30/19 History isosorbide mononitrate 30 mg PO QAM 09/30/19 09/30/19 History nicotine 1 patch TRANSDERMAL DAILY 09/30/19 09/30/19 History polyethylene glycol 3350 [Miralax] 17 g PO QDL PRN 09/30/19 09/30/19 History sennosides-docusate sodium 1 tab-cap PO QDL PRN 09/30/19 09/30/19 History [Senokot-S] sevelamer HCl 1,600 mg PO TIDM 09/30/19 09/30/19 History sodium chloride 0.9 % 1,000 ml IV DIRECTED PRN 09/30/19 09/30/19 History Allergies Allergy/AdvReac Type Severity Reaction Status Date / Time No Known Allergies Allergy NKA Verified 09/30/19 19:48 Past Med/Surg History Medical History CAD (coronary artery disease) (Chronic) Diabetic nephropathy (Chronic) Diabetic retinopathy (Chronic) Diastolic dysfunction (Chronic) Dyslipidemia (Chronic) Dyslipidemia (Chronic) ESRD on dialysis (Chronic) ESRD on hemodialysis (Chronic) TUESDAY/TUE/TUESDAY ([place]) Hypertension (Chronic) Ischemic cardiomyopathy (Chronic) Initial EF 20%, echo 01/2019 EF 50 to 54% Macular degeneration (Chronic) Type I diabetes mellitus (Chronic) Surgical History History of tooth extraction (Chronic) S/P CABG x 2 (Chronic) Family History Mother Family history of diabetes mellitus Kidney disease Father Family history of diabetes mellitus Kidney disease Social History Preferred Language: Lao Communication Ability: Effective Grocery Supervisor Required: No Beliefs That Will Affect Care: None marital status: Single Current Living Situation: Family Feels Safe at Home: Yes Safety Concerns: Feels Safe At This Time Smoking Status: Heavy tobacco smoker Tobacco Type: cigarettes ; Cigarettes Per Day: 30 ; Second Hand Exposure: No ; Hx Alcohol Use: No Hx Substance Use: No Review of Systems A total of 10 systems reviewed and were otherwise negative He specifically denies any fever or flulike symptoms or travel or exposure to murray Physical Exam Vital Signs Vital Signs - 24 hr 09/30/19 19:30 09/30/19 19:35 09/30/19 19:53 Temperature 36.5 C Temperature Source Oral Pulse Rate 83 82 83 Pulse Rate from SpO2 Sensor 83 Pulse Rhythm Regular Regular Respiratory Rate 16 13 16 Respiratory Effort / Characteristics Non-Labored Spontaneous Respiratory Depth Normal Respiratory Pattern Regular Blood Pressure 162/86 H 162/86 H Blood Pressure Mean 111 109 Pulse Oximetry 98 94 98 Oxygen Delivery Method Room Air Room Air Room Air Oxygen Flow Rate Sepsis Recent Fever Within 48 Hours No Sepsis New/Unexplained Change in Mental Status No Sepsis Action Taken by Nursing No Action Required 09/30/19 20:25 09/30/19 20:30 09/30/19 21:00 Temperature Temperature Source Pulse Rate 80 78 80 Pulse Rate from SpO2 Sensor 80 78 78 Pulse Rhythm Respiratory Rate 17 15 22 Respiratory Effort / Characteristics Respiratory Depth Respiratory Pattern Blood Pressure 160/84 H 160/86 H 172/88 H Blood Pressure Mean 100 114 134 Pulse Oximetry 99 98 98 Oxygen Delivery Method Nasal Cannula Nasal Cannula Oxygen Flow Rate 2 2 Sepsis Recent Fever Within 48 Hours Sepsis New/Unexplained Change in Mental Status Sepsis Action Taken by Nursing 09/30/19 21:01 Temperature Temperature Source Pulse Rate 80 Pulse Rate from SpO2 Sensor 78 Pulse Rhythm Respiratory Rate 28 H Respiratory Effort / Characteristics Respiratory Depth Respiratory Pattern Blood Pressure Blood Pressure Mean Pulse Oximetry 100 Oxygen Delivery Method Oxygen Flow Rate Sepsis Recent Fever Within 48 Hours Sepsis New/Unexplained Change in Mental Status Sepsis Action Taken by Nursing General: Well developed well nourished young male who appears in no acute distress, breathing comfortably on room air. Normal speech HEENT: Normal cephalic atraumatic. Pupils are equal round and reactive to light. Extraocular movements are intact. Oropharynx is pink with moist mucous membranes. No swelling of the mouth lips or tongue. Neck: Supple with a midline trachea. No meningeal signs or stiffness, no JVD or bruits. No Stridor. Chest: Clear to auscultation bilaterally. No wheezes or rhonchi. No increased work of breathing. He does have some mild tenderness on palpation when he moves it seems to hurt as well. No crepitus or subcutaneous air Heart: Regular rate and rhythm without murmurs or gallops. Abdomen: Soft nontender, nondistended without rebound guarding or rigidity. Extremities: No cyanosis clubbing. He does have 1+ bilateral lower extremity edema. No calf tenderness or assymetry. There is a dialysis fistula in the right arm Spine/Back. Non tender to palpation. No CVA tenderness Skin: Good turgor without rashes. Neurologic exam: Cranial nerves two through 12 are intact. Motor and sensation are intact and symmetrical throughout. Course Administered Medications Ioversol (Optiray 320 125ml) 119 ml IV ONCE PRN PRN Reason: Interaction Checking Stop: 10/04/19 21:20 Last Admin: 09/30/19 21:21 Dose: 119 ml Documented by: [id number] Discontinued Medications Insulin Human Regular (Novolin R U-100 Per Unit) 5 units IV NOW STA Stop: 09/30/19 20:43 Last Admin: 09/30/19 20:54 Dose: 5 units Documented by: [id number] Cosigned by: [id number] Morphine Sulfate (Morphine Sulfate) 2 mg IV NOW STA Stop: 09/30/19 19:43 Last Admin: 09/30/19 19:57 Dose: 2 mg Documented by: [id number] Morphine Sulfate (Morphine Sulfate) 2 mg IV NOW STA Stop: 09/30/19 20:10 Last Admin: 09/30/19 20:25 Dose: 2 mg Documented by: [id number] Morphine Sulfate (Morphine Sulfate) 2 mg IV NOW STA Stop: 09/30/19 20:45 Last Admin: 09/30/19 20:54 Dose: 2 mg Documented by: [id number] Impression & Plan Chest pain, ESRD on hemodialysis, CAD (coronary artery disease), S/P CABG x 2, Diabetes Discharge Plan Visit Data Chief Complaint: Chest Pain ED Provider: Delfin Weiss Discharge Problem: Chest pain, ESRD on hemodialysis, CAD (coronary artery disease), S/P CABG x 2, Diabetes Discharge Instructions Interventions: ED Discharge Assessment Last Done: 09/30/19 23:29 Forms Stand Alone Forms: My [facility] Prescriptions Prescriptions: No Action amlodipine 10 mg tablet 10 mg PO QAM RF: 0 carvedilol 25 mg Tablet 25 mg PO BIDM RF: 0 acetaminophen [Tylenol] 325 mg Tablet 650 mg PO Q4H PRN (Reason: Pain (Scale Score 1-3)) RF: 0 atorvastatin 20 mg Tablet 20 mg PO HS RF: 0 nicotine 14 mg/24 hr Patch 24 Hour 1 patch TRANSDERMAL DAILY RF: 0 Lantus U-100 Insulin 100 unit/mL Solution 12 unit SUBCUT HS RF: 0 heparin (porcine) 1,000 unit/mL Solution 1,000 unit IV DIRECTED PRN (Reason: DIALYSIS) RF: 0 sevelamer HCl 800 mg Tablet 1,600 mg PO TIDM RF: 0 isosorbide mononitrate 30 mg Tablet Extended Release 24 Hr 30 mg PO QAM RF: 0 sennosides-docusate sodium [Senokot-S] 8.6-50 mg Tablet 1 tab-cap PO QDL PRN (Reason: Constipation) RF: 0 clopidogrel 75 mg Tablet 75 mg PO QAM RF: 0 famotidine 20 mg Tablet 20 mg PO QAM RF: 0 bisacodyl 10 mg Suppository 10 mg RI DAILY PRN (Reason: Constipation) RF: 0 Humulin R Regular U-100 Insuln 100 unit/mL Solution 1 sliding scale dose SUBCUT TIDM RF: 0 Venofer 100 mg iron/5 mL Solution 100 mg IV WK PRN (Reason: DIALYSIS) RF: 0 docusate sodium 100 mg Capsule 100 mg PO BID RF: 0 aspirin [Aspirin Childrens] 81 mg Tablet,Chewable 81 mg PO QAM RF: 0 polyethylene glycol 3350 [Miralax] 17 gram/dose Powder 17 g PO QDL PRN (Reason: Constipation) RF: 0 sodium chloride 0.9 % Piggyback 1,000 ml IV DIRECTED PRN (Reason: DIALYSIS) RF: 0 Aranesp (in polysorbate) 200 mcg/mL Solution 200 mcg subcut .Q7DAYS RF: 0 Nephrocaps 1 cap PO QDL RF: 0 clonidine HCl 0.1 mg tablet 0.3 mg PO QAM RF: 0 losartan 100 mg tablet 100 mg PO QAM RF: 0 Referrals Referrals: Mckinley Douglas MD [Primary Care Provider] - Medical Decision Making Differential Diagnosis Differential diagnosis includes but is not limited to: Acute coronary syndrome, arrhythmia, pneumothorax, CHF, fluid overload, dialysis complication, PE, electrolyte or metabolic abnormality, infection. Medical Records Attestation: I reviewed the patient's medical records. Home Medications Current Medication List: was personally reviewed by vt Laboratory Data Attestation: I reviewed the patient's lab results. Result diagrams: 09/30/19 19:40 09/30/19 19:40 Lab Results 09/30/19 09/30/19 09/30/19 Range/Units 19:40 19:40 19:40 WBC 9.15 (4.8-10.8) K/uL RBC 2.45 L (4.7-6.1) M/uL Hgb 7.7 L (14.0-18.0) g/dL Hct 23.0 L (42-52) % MCV 93.9 (80-100) fL MCH 31.4 (25-34) pg MCHC 33.5 (32-36) g/dL RDW Std Deviation 54.4 H (36.4-46.3) fL RDW Coeff of Hedy 15.5 H (11.5-14.5) % Plt Count 307 (130-400) K/uL MPV 9.8 (7.4-10.4) fL Immature Gran % (Auto) 0.3 % Neut % (Auto) 75.6 % Lymph % (Auto) 13.6 % [place] % (Auto) 5.0 % Eos % (Auto) 4.3 % Baso % (Auto) 1.2 % Immature Gran # (Auto) 0.03 H (0.00-0.02) K/uL Neut # (Auto) 6.92 H (1.4-6.5) K/uL Lymph # (Auto) 1.24 (1.2-3.4) K/uL [place] # (Auto) 0.46 (0.11-0.59) K/uL Eos # (Auto) 0.39 (0-0.5) K/uL Baso # (Auto) 0.11 (0-0.2) K/uL RBC Morphology Unremarkable PT 11.2 (9.0-12.0) Seconds INR 1.1 (0.9-1.1) APTT 27.4 (21.0-31.0) Seconds PTT Ratio 1.0 Sodium 131 L (136-145) mmol/L Potassium 5.1 (3.5-5.1) mmol/L Chloride 97 L (98-107) mmol/L Carbon Dioxide 26 (21-32) mmol/L Anion Gap 9.0 (3-11) BUN 65 H (7-18) mg/dl Creatinine 6.42 H* (0.6-1.4) mg/dl Est Cr Clr Drug Dosing 17.1 ml/min Est GFR ( Amer) 11.9 Est GFR (Non-Af Amer) 10.3 BUN/Creatinine Ratio 10.2 (10-20) Glucose 353 H* (70-99) mg/dl POC Glucose (70-99) mg/dl Calcium 8.5 (8.5-10.1) mg/dl Total Bilirubin 0.3 (0.2-1) mg/dl AST 14 L (15-37) U/L ALT 24 (12-78) U/L Alkaline Phosphatase 114 (45-117) U/L Troponin I 0.058 H* (0-0.045) ng/ml Total Protein 6.9 (6.4-8.2) gm/dl Albumin 2.9 L (3.4-5.0) gm/dl Globulin 4.0 (2.5-4.0) gm/dl Albumin/Globulin Ratio 0.7 L (0.9-2) Lipase 290 (73-393) U/L Beta-Hydroxybutyric Acd 6.35 H (0.2-2.81) mg/dl 09/30/19 Range/Units 21:27 WBC (4.8-10.8) K/uL RBC (4.7-6.1) M/uL Hgb (14.0-18.0) g/dL Hct (42-52) % MCV (80-100) fL MCH (25-34) pg MCHC (32-36) g/dL RDW Std Deviation (36.4-46.3) fL RDW Coeff of Hedy (11.5-14.5) % Plt Count (130-400) K/uL MPV (7.4-10.4) fL Immature Gran % (Auto) % Neut % (Auto) % Lymph % (Auto) % [place] % (Auto) % Eos % (Auto) % Baso % (Auto) % Immature Gran # (Auto) (0.00-0.02) K/uL Neut # (Auto) (1.4-6.5) K/uL Lymph # (Auto) (1.2-3.4) K/uL [place] # (Auto) (0.11-0.59) K/uL Eos # (Auto) (0-0.5) K/uL Baso # (Auto) (0-0.2) K/uL RBC Morphology PT (9.0-12.0) Seconds INR (0.9-1.1) APTT (21.0-31.0) Seconds PTT Ratio Sodium (136-145) mmol/L Potassium (3.5-5.1) mmol/L Chloride (98-107) mmol/L Carbon Dioxide (21-32) mmol/L Anion Gap (3-11) BUN (7-18) mg/dl Creatinine (0.6-1.4) mg/dl Est Cr Clr Drug Dosing ml/min Est GFR ( Amer) Est GFR (Non-Af Amer) BUN/Creatinine Ratio (10-20) Glucose (70-99) mg/dl POC Glucose 363 H* (70-99) mg/dl Calcium (8.5-10.1) mg/dl Total Bilirubin (0.2-1) mg/dl AST (15-37) U/L ALT (12-78) U/L Alkaline Phosphatase (45-117) U/L Troponin I (0-0.045) ng/ml Total Protein (6.4-8.2) gm/dl Albumin (3.4-5.0) gm/dl Globulin (2.5-4.0) gm/dl Albumin/Globulin Ratio (0.9-2) Lipase (73-393) U/L Beta-Hydroxybutyric Acd (0.2-2.81) mg/dl Imaging Data Radiologist's Impression: CTA for PE-no evidence of PE. CT of the abdomen and pelvis no acute abnormality Please refer to radiology report ECG Data Attestation: I personally reviewed and interpreted this ECG as follows: Indication: + chest pain Rate (beats per minute): 82 Rhythm: + normal sinus ECG Intervals/blocks: + Normal QRS, + Normal QT and + Normal RI ECG Singer: + Normal ECG ST segments: + T-wave inversions (laterally) ECG Findings: no PACs and no PVCs Comparison ECG Date: from (08/31/19) Change: the following changes noted Additional Comments: Compared to the old EKG there is significant improvement in the ST and T wave abnormalities. On the present EKG there is no significant peaking of the T waves. He does have some lateral T wave inversions which were present on old EKGs as well. EKG #2. Normal sinus rhythm rate of 80. There are some ST and T wave abnormalities laterally which are unchanged compared to #1. Poor R wave progression. No overall changes compared to EKG #1. Blood Pressure Blood Pressure Findings: Elevated blood pressure Blood Pressure Disposition: elevated BP felt to be situational MDM Narrative This patient comes in as described above he is having left-sided chest pain that started about 3 hours ago. He has a very complex medical history including di abetes, cardiac disease and end-stage renal disease. He has stable vital signs upon arrival. His pain is reproducible with movement and is somewhat atypical however he does have a lot of risk factors. In light of this, a significant work-up was done. His initial EKG does not show any acute STEMI. There is no definite acute ischemic changes compared to old there is no significant changes which suggest significant hyperkalemia. He is a dialysis patient but has not missed dialysis this week. Chest x-ray was obtained as multiple blood testing as well. He did receive aspirin prior to arrival he was given morphine 2 mg IV. He was reassessed frequently. The morphine did seem to help with the pain and he was given additional doses of 2 mg IV. His pain does seem very pleuritic. His chest x-ray does not show any pneumothorax or fluid overload. He does have a possible infiltrate in the right base however has no symptoms to suggest pneumonia. He was found to be anemic at 7.7 he reports no recent bleeding. He is hemodynamically stable. He does have baseline renal failure. His potassium is not significantly elevated and is 5.1. He has no EKG changes. He has not missed dialysis and is due for tomorrow. His blood sugar was elevated in the 350s he was given additional IV insulin 5 units. He says is been multiple hours since he had any insulin. I also did a second EKG. I also ordered a CTA of his chest to rule out PE and his abdomen since he was getting the dye load to rule out any internal bleeding given his low hemoglobin. He reports no abdominal pain. There is no evidence of PE. There is no acute intra-abdominal process. I do think he needs to be admitted/observe for further treatment and evaluation. [facility]. 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 His heart rate was 83 peers placed on this due to his chest pain. This was checked and monitored throughout his stay Discharge Problem: Chest pain Qualifiers: Chest pain type: precordial pain Qualified Code(s): R07.2 - Precordial pain CAD (coronary artery disease) Qualifiers: Coronary Disease-Associated Artery/Lesion type: unspecified vessel or lesion type [place] vs. transplanted heart: [place] heart Associated angina: angina presence unspecified Qualified Code(s): I25.10 - Atherosclerotic heart disease of [place] coronary artery without angina pectoris Diabetes Qualifiers: Diabetes mellitus type: type 1 Diabetes mellitus complication status: with kidney complications Diabetes mellitus complication detail: with chronic kidney disease Chronic kidney disease stage: on chronic dialysis Qualified Code(s): E10.22 - Type 1 diabetes mellitus with diabetic chronic kidney disease
[2019-09-30 20:05] LABS: INR 1.1 (0.9-1.1); Partial Thromboplastin Time 27.4 Seconds (21.0-31.0); Prothrombin Time 11.2 Seconds (9.0-12.0)
[2019-09-30 20:15] LABS: RBC Morphology Unremarkable
[2019-09-30 20:26] LABS: Albumin Globulin Ratio 0.7 (0.9-2); Albumin Level 2.9 gm/dl (3.4-5.0); BUN Creatinine Ratio 10.2 (10-20); Bilirubin,Total 0.3 mg/dl (0.2-1); Calcium 8.5 mg/dl (8.5-10.1); Creatinine Clr Calc Pharmacy 17.1 ml/min; Est GFR (African American) 11.9; Est GFR (Non-African American) 10.3; Potassium 5.1 mmol/L (3.5-5.1); Total Protein 6.9 gm/dl (6.4-8.2); Troponin I 0.058 ng/ml (0-0.045)
--- NOTE | 2019-09-30 20:26 | XRay Report ---
XR chest 1V portable CLINICAL HISTORY: Chest Pain dyspnea COMPARISON STUDY: 08/31/2019 FINDINGS: Mild cardiomegaly. Prior median sternotomy. Poorly defined parenchymal infiltrate right base. Slight chronic blunting left lateral costophrenic a ngle. IMPRESSION: Poorly defined parenchymal infiltrate right base. ACT 112: Negative or not required by law. The above report was generated using voice recognition software. It may contain grammatical, syntax or spelling errors. Electronically signed by: Yeyo Aguilar M.D. 09/30/2019 8:25 PM
[2019-09-30 20:39] LABS: Beta-Hydroxybutyrate 6.35 mg/dl (0.2-2.81)
[2019-09-30] MEDS ORDERED: NovoLIN-R INSULIN PER UNIT CHARGE IV STA (20:42)
[2019-09-30] MEDS ORDERED: OPTIRAY 320 125ml IV PRN (21:21)
--- NOTE | 2019-09-30 21:28 | CT Scan Report ---
CT angio chest PE protocol CT DOSE: 904.38 mGy.cm HISTORY: Chest pain PE TECHNIQUE: Multiaxial CT images of the chest were performed following the intravenous administration of contrast to evaluate the pulmonary arteries. Maximal intensity projection images were also obtaine d. A dose lowering technique was utilized adhering to the principles of ALARA. COMPARISON STUDY: 08/03/2017 FINDINGS: Prior median sternotomy. The pulmonary vasculature enhances appropriately. Mild thickening of the major fissures bilaterally. Mild cardiomegaly. Pleural thickening and infiltrative change and peribronchial distribution of the right and to a lesse r extent left lung base. Mild body wall anasarca. IMPRESSION: 1. No evidence for pulmonary embolus. 2. Cardiomegaly with prominent pulmonary vasculature. 3. Pleural thickening right and to a lesser extent left base with mild peribronchial infiltrative eagle nge bilaterally. 4. Mild body wall anasarca. ACT 112: Negative or not required by law. The above report was generated using voice recognition software. It may contain grammatical, syntax or spelling errors. Electronically signed by: Yeyo Aguilar M.D. 09/30/2019 9:27 PM
--- NOTE | 2019-09-30 21:32 | CT Scan Report ---
CT abd pelvis IV con only CT DOSE: HISTORY: Pain. Nausea. low hg, eval for bleed TECHNIQUE: Multiaxial CT images of the abdomen and pelvis were performed following the use of intrave nous contrast. A dose lowering technique was utilized adhering to the principles of ALARA. COMPARISON STUDY: 08/21/2016 FINDINGS: Lung bases demonstrate bilateral pleural thickening with moderate peribronchial infiltrativ e change. Moderate body wall anasarca. The liver spleen and pancreas appear unremarkable. Mild bilateral renal atrophy. No evidence for renal hydronephrosis. Bowel pattern is nonobstructive. Bladder appears to be unremarkable and is relatively collapsed. No s ignificant free fluid within the pelvic cul-de-sac. Several small reactive nodes within the abdomen pelvic and inguinal regions. IMPRESSION: 1. Mild to moderate basilar pleural thickening with peribronchial prominence bilaterally. 2. Moderate body wall anasarca consistent with fluid overload. 3. Mild renal atrophy bilaterally. 4. No additional acute abnormality. ACT 112: Negative or not required by law. The above report was generated using voice recognition software. It may contain grammatical, syntax or spelling errors. Electronically signed by: Yeyo Aguilar M.D. 09/30/2019 9:30 PM
--- NOTE | 2019-09-30 23:32 | History & Physical Report ---
Date of Service September 30, 2019 Assessment & Plan (1) Chest pain: 34-year-old male with history of ESRD, chronic anemia, CABG, CABG, ischemic cardiomyopathy, diabetes type 1, hypertension, Other problems noted below presenting with chest pain which started late this afternoon. CHEST PAIN, RULE OUT ACUTE CORONARY SYNDROME, POSSIBLE SYMPTOMATIC ANEMIA, RULE OUT PERICARDITIS, POSSIBLE MUSCULOSKELETAL ETIOLOGY HISTORY OF CAD, CABG HISTORY OF RECENT PEA CARDIAC ARREST, NON-ST ELEVATION DE SEPTEMBER 01, 2019 --CT chest negative for PE --Check serial troponins x2 Echocardiogram ordered EKG in the morning Check ESR --Nitropaste 2% 0.5 inch every 6 hours Continue usual aspirin, Plavix, Imdur, losartan, Coreg, Lipitor --Event Representative consulted N.p.o. post midnight For symptomatic anemia -- patient's baseline hemoglobin is 10-11 Now down to 7.7 --1 unit packed RBC ordered Monitor hemoglobin, hemoglobin goal around 9 HISTORY OF ISCHEMIC CARDIOMYOPATHY EF 40 TO 45% --Currently euvolemic Monitor while transfusing packed RBCs ENCEPHALOPATHY, HYPOXIC/ISCHEMIC BRAIN INJURY RECENT PEA CARDIAC ARREST SECONDARY TO ACUTE HYPOXIC RESPIRATORY FAILURE SECONDARY TO MISSED HEMODIALYSIS, SEPTEMBER 01, 2019 --Mental status back to baseline ESRD --We will consult nephrology for hemodialysis HYPERTENSION --Patient being given Nitropaste for chest pain rule out ACS Continue Imdur, losartan, Coreg, clonidine, amlodipine DIABETES TYPE 1 --Usually on glargine 12 units at bedtime and insulin sliding scale Had hypoglycemic episode this afternoon at [facility] We will consult pharmacy glycemic control service HISTORY OF SEIZURE --Associated with cardiac arrest episode DVT prophylaxis --SCDs Consider heparin subcutaneous if okay with nephrology service Full code as per patient Disposition --Anticipate to transition back to [facility] when medically stable History of Present Illness 34-year-old male with history of ESRD, chronic anemia, CABG, CABG, ischemic cardiomyopathy, diabetes type 1, hypertension, Other problems noted below presenting with chest pain which started late this afternoon. Patient was recently discharged from [facility] in [place] to [facility] where patient currently resides. He was admitted for PEA cardiac arrest secondary to acute respiratory failure from missed hemodialysis. He also suffered hypoxic/ischemic encephalopathy which has since resolved. Patient reports that this morning he had a physical therapy session which involved lifting weights targeting his chest muscles. He was feeling fine since this morning until later this afternoon around 4:30 PM when he started to have diaphoresis and was found to have low blood glucose. He was given food to eat which improved his blood glucose but subsequently developed central chest pain, pressure/crushing, radiating to his lower neck, But not associated with shortness of breath, nausea, diaphoresis. He notes that the chest pain is somewhat worsened with inspiration. He was then brought to the ER for evaluation. At the ER, patient was received a blood pressure of 162/86, heart rate of 83, respiratory 16, temperature 36.5, saturating 98% on room air. EKG did not reveal any signs of acute ischemia or infarct, initial troponin is 0.05. CT angiogram of the chest no acute PE He was given morphine 2 mg IV x3 doses with improvement of symptoms. On my exam, the patient is seen resting in bed, not in distress, speaking on the phone with his family member. He is awake, alert, oriented x3. He reports that the chest discomfort has improved from 9 now down to 5. No active shortness of breath, palpitations, dizziness, headache, nausea. He reports some reproducibility of the chest pain with movement of his right arm and with deep inspiration. No other symptoms. Primary Care Provider: Mckinley Douglas MD Allergies Allergy/AdvReac Type Severity Reaction Status Date / Time No Known Allergies Allergy NKA Verified 09/30/19 19:48 Home Medications Home Medications Medication Instructions Recorded Confirmed Type clonidine HCl 0.3 mg PO QAM 11/08/18 09/30/19 History losartan 100 mg PO QAM 11/08/18 09/30/19 History Nephrocaps 1 cap PO QDL 09/30/19 09/30/19 History acetaminophen [Tylenol] 650 mg PO Q4H PRN 09/30/19 09/30/19 History amlodipine 10 mg PO QAM 09/30/19 09/30/19 History aspirin [Aspirin Childrens] 81 mg PO QAM 09/30/19 09/30/19 History atorvastatin 20 mg PO HS 09/30/19 09/30/19 History bisacodyl 10 mg MN DAILY PRN 09/30/19 09/30/19 History carvedilol 25 mg PO BIDM 09/30/19 09/30/19 History clopidogrel 75 mg PO QAM 09/30/19 09/30/19 History darbepoetin kelly in polysorbat 200 mcg SUBCUT .Q7DAYS 09/30/19 09/30/19 History [Aranesp (in polysorbate)] docusate sodium 100 mg PO BID 09/30/19 09/30/19 History famotidine 20 mg PO QAM 09/30/19 09/30/19 History heparin (porcine) 1,000 unit IV DIRECTED PRN 09/30/19 09/30/19 History insulin glargine [Lantus U-100 12 unit SUBCUT HS 09/30/19 09/30/19 History Insulin] insulin regular human [Humulin R 1 sliding scale dose SUBCUT TIDM 09/30/19 09/30/19 History Regular U-100 Insuln] iron sucrose [Venofer] 100 mg IV WK PRN 09/30/19 09/30/19 History isosorbide mononitrate 30 mg PO QAM 09/30/19 09/30/19 History nicotine 1 patch TRANSDERMAL DAILY 09/30/19 09/30/19 History polyethylene glycol 3350 [Miralax] 17 g PO QDL PRN 09/30/19 09/30/19 History sennosides-docusate sodium 1 tab-cap PO QDL PRN 09/30/19 09/30/19 History [Senokot-S] sevelamer HCl 1,600 mg PO TIDM 09/30/19 09/30/19 History sodium chloride 0.9 % 1,000 ml IV DIRECTED PRN 09/30/19 09/30/19 History Past Med/Surg History Medical History CAD (coronary artery disease) (Chronic) Diabetic nephropathy (Chronic) Diabetic retinopathy (Chronic) Diastolic dysfunction (Chronic) Dyslipidemia (Chronic) Dyslipidemia (Chronic) ESRD on dialysis (Chronic) ESRD on hemodialysis (Chronic) TUESDAY/TUE/TUESDAY ([place]) Hypertension (Chronic) Ischemic cardiomyopathy (Chronic) Initial EF 20%, echo 01/2019 EF 50 to 54% Macular degeneration (Chronic) Type I diabetes mellitus (Chronic) Surgical History History of tooth extraction (Chronic) S/P CABG x 2 (Chronic) Family History Mother Family history of diabetes mellitus Kidney disease Father Family history of diabetes mellitus Kidney disease Social History Preferred Language: [place] Communication Ability: Effective 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 Beliefs That Will Affect Care: None marital status: Single Current Living Situation: Family Feels Safe at Home: Yes Safety Concerns: Feels Safe At This Time Smoking Status: Heavy tobacco smoker Tobacco Type: cigarettes ; Cigarettes Per Day: 30 ; Second Hand Exposure: No ; Hx Alcohol Use: No Hx Substance Use: No Review of Systems Review of Systems: All systems reviewed & are unremarkable except as noted in HPI & below Physical Exam Physical Exam: General- oriented x 3, not in distress, speaks in sentences with no effort or accessory muscle use Positive pallor Head- atraumatic Eyes- PERRL, EOMI, anicteric ENT- oropharynx clear Neck- supple, no JVD, no adenopathy, no thyromegaly; carotids +2/2, no bruits appreciated Lungs- clear to auscultation bilaterally, no rales/wheezes Heart- normal rate, regular rhythm; no murmur, no gallop, positive mild rub appreciated Positive midsternal surgical scar Abdomen- normal bowel sounds, nondistended, soft, nontender, no masses or hepatosplenomegaly Extremities- Positive AV fistula right upper arm, positive thrill no pretibial edema, no calf tenderness; peripheral pulses intact Neuro- alert, oriented x 3; CN 2-12 grossly intact except for decreased vision bilaterally; motor 5/5 bilaterally;sensation 100% on all extremities; no other gross focal neurologic deficits Skin- warm & dry Results & Data Results & Data ([facility]) Vital Signs (Past 12 Hours) Vital Signs Temp Pulse Resp BP Pulse Ox 09/30/19 21:01 80 28 H 100 09/30/19 21:00 80 22 172/88 H 98 09/30/19 20:30 78 15 160/86 H 98 09/30/19 20:25 80 17 160/84 H 99 09/30/19 19:53 83 16 98 09/30/19 19:35 82 13 162/86 H 94 09/30/19 19:30 36.5 C 83 16 162/86 H 98 Laboratory Results Laboratory Results - last 24 hr 09/30/19 09/30/19 09/30/19 19:40 19:40 19:40 WBC 9.15 RBC 2.45 L Hgb 7.7 L Hct 23.0 L MCV 93.9 MCH 31.4 MCHC 33.5 RDW Std Deviation 54.4 H RDW Coeff of Hedy 15.5 H Plt Count 307 MPV 9.8 Immature Gran % (Auto) 0.3 Neut % (Auto) 75.6 Lymph % (Auto) 13.6 [place] % (Auto) 5.0 Eos % (Auto) 4.3 Baso % (Auto) 1.2 Immature Gran # (Auto) 0.03 H Neut # (Auto) 6.92 H Lymph # (Auto) 1.24 [place] # (Auto) 0.46 Eos # (Auto) 0.39 Baso # (Auto) 0.11 RBC Morphology Unremarkable PT 11.2 INR 1.1 APTT 27.4 PTT Ratio 1.0 Sodium 131 L Potassium 5.1 Chloride 97 L Carbon Dioxide 26 Anion Gap 9.0 BUN 65 H Creatinine 6.42 H* Est Cr Clr Drug Dosing 17.1 Est GFR ( Amer) 11.9 Est GFR (Non-Af Amer) 10.3 BUN/Creatinine Ratio 10.2 Glucose 353 H* POC Glucose Calcium 8.5 Total Bilirubin 0.3 AST 14 L ALT 24 Alkaline Phosphatase 114 Troponin I 0.058 H* Total Protein 6.9 Albumin 2.9 L Globulin 4.0 Albumin/Globulin Ratio 0.7 L Lipase 290 Beta-Hydroxybutyric Acd 6.35 H 09/30/19 21:27 WBC RBC Hgb Hct MCV MCH MCHC RDW Std Deviation RDW Coeff of Hedy Plt Count MPV Immature Gran % (Auto) Neut % (Auto) Lymph % (Auto) [place] % (Auto) Eos % (Auto) Baso % (Auto) Immature Gran # (Auto) Neut # (Auto) Lymph # (Auto) [place] # (Auto) Eos # (Auto) Baso # (Auto) RBC Morphology PT INR APTT PTT Ratio Sodium Potassium Chloride Carbon Dioxide Anion Gap BUN Creatinine Est Cr Clr Drug Dosing Est GFR ( Amer) Est GFR (Non-Af Amer) BUN/Creatinine Ratio Glucose POC Glucose 363 H* Calcium Total Bilirubin AST ALT Alkaline Phosphatase Troponin I Total Protein Albumin Globulin Albumin/Globulin Ratio Lipase Beta-Hydroxybutyric Acd Diagnostic Findings CT angio chest PE protocol CT DOSE: 904.38 mGy.cm HISTORY: Chest pain PE TECHNIQUE: Multiaxial CT images of the chest were performed following the intravenous administration of contrast to evaluate the pulmonary arteries. Maximal intensity projection images were also obtained. A dose lowering technique was utilized adhering to the principles of ALARA. COMPARISON STUDY: 08/03/2017 FINDINGS: Prior median sternotomy. The pulmonary vasculature enhances appropriately. Mild thickening of the major fissures bilaterally. Mild cardiomegaly. Pleural thickening and infiltrative change and peribronchial distribution of the right and to a lesser extent left lung base. Mild body wall anasarca. IMPRESSION: 1. No evidence for pulmonary embolus. 2. Cardiomegaly with prominent pulmonary vasculature. 3. Pleural thickening right and to a lesser extent left base with mild peribronchial infiltrative change bilaterally. 4. Mild body wall anasarca. CT abd pelvis IV con only CT DOSE: HISTORY: Pain. Nausea. low hg, eval for bleed TECHNIQUE: Multiaxial CT images of the abdomen and pelvis were performed following the use of intravenous contrast. A dose lowering technique was utilized adhering to the principles of ALARA. COMPARISON STUDY: 08/21/2016 FINDINGS: Lung bases demonstrate bilateral pleural thickening with moderate peribronchial infiltrative change. Moderate body wall anasarca. The liver spleen and pancreas appear unremarkable. Mild bilateral renal atrophy. No evidence for renal hydronephrosis. Bowel pattern is nonobstructive. Bladder appears to be unremarkable and is relatively collapsed. No significant free fluid within the pelvic cul-de-sac. Several small reactive nodes within the abdomen pelvic and inguinal regions. IMPRESSION: 1. Mild to moderate basilar pleural thickening with peribronchial prominence bilaterally. 2. Moderate body wall anasarca consistent with fluid overload. 3. Mild renal atrophy bilaterally. 4. No additional acute abnormality. ECG Additional Comments: Heart rate [address], T wave changes in V2 to V3, V6 Code Status & VTE Plan Code Status Full code as per patient VTE Prophylaxis Plan VTE Prophylaxis will be ordered: Yes (1) Chest pain Chest pain type: precordial pain Qualified Code(s): R07.2 - Precordial pain
[2019-10-01] MEDS ORDERED: SODIUM CHLORIDE 0.9% IV PRN (00:01)
[2019-10-01] MEDS ORDERED: ACETAMINOPHEN 325 MG TAB PO PRN (00:01)
[2019-10-01] MEDS ORDERED: [UNRECOGNIZED DRUG - OTHER] IV PRN (00:01)
[2019-10-01] MEDS ORDERED: SODIUM CHLORIDE 0.9% 250 ML IV PRN (00:01)
[2019-10-01] MEDS ORDERED: DARBEPOETIN ALFA IN POLYSORBAT SQ SCH (00:01)
[2019-10-01] MEDS ORDERED: DOCUSATE SODIUM/SENNA 50/8.6MG TAB PO PRN (00:01)
[2019-10-01] MEDS ORDERED: bisacodyL 10 MG SUPP PR PRN (00:01)
[2019-10-01] MEDS ORDERED: HEPARIN (PORCINE) 1000 UNIT/ML 10 ML (CATH LAB USE ONLY) IV PRN (00:01)
[2019-10-01] MEDS ORDERED: POLYETHYLENE (MIRALAX) 17 GM PACK PO PRN (00:01)
[2019-10-01] MEDS ORDERED: TRAMADOL HCL 50 MG TABLET PO PRN (00:01)
[2019-10-01] MEDS ORDERED: HYDROCODONE/ACETAMOPHEN 5/325MG TAB PO PRN (00:01)
[2019-10-01] MEDS ORDERED: PHARMACY GLYCEMIC MGMT CONSULT PRN (00:34)
[2019-10-01] MEDS: NITROGLYCERIN 2% OINTMENT 30GM TUBE EXT SCH ×4 (00:56→18:45)
[2019-10-01] MEDS ORDERED: INSULIN GLARGINE SOLOSTAR 100 UNITS/ML 3 ML PEN SC SCH (01:00)
[2019-10-01] MEDS: INSULIN ASPART 100 UNITS/ML 3 ML PEN SC SCH ×6 (01:06→20:28)
[2019-10-01] MEDS ORDERED: MoRPHine SULFATE 4 MG/ML 1 ML CARP\\VIAL IV PRN (06:17)
[2019-10-01 06:58] LABS: Basophils # (auto) 0.12 K/uL (0-0.2); Basophils % (auto) 1.6 %; Eosinophils # (auto) 0.45 K/uL (0-0.5); Hematocrit (blood only) 27.1 % (42-52); Hemoglobin 8.9 g/dL (14.0-18.0); Immature Granulocytes # (auto) 0.02 K/uL (0.00-0.02); Immature Granulocytes % (auto) 0.3 %; Lymphocytes # (auto) 1.43 K/uL (1.2-3.4); Mean Corpuscular Hemoglobin 30.4 pg (25-34); Mean Corpuscular Hgb Conc 32.8 g/dL (32-36); Mean Corpuscular Volume 92.5 fL (80-100); Monocytes # (auto) 0.59 K/uL (0.11-0.59); Monocytes % (auto) 7.8 %; Neutrophils # (auto) 4.92 K/uL (1.4-6.5); Neutrophils % (auto) 65.3 %; Platelet Count 309 K/uL (130-400); RDW Coefficient of Variation 17.4 % (11.5-14.5); RDW Standard Deviation 58.8 fL (36.4-46.3); Red Blood Count 2.93 M/uL (4.7-6.1); White Blood Count 7.53 K/uL (4.8-10.8)
[2019-10-01 07:09] LABS: Partial Thromboplastin Time 26.9 Seconds (21.0-31.0)
[2019-10-01 07:46] LABS: BUN Creatinine Ratio 10.1 (10-20); Calcium 8.5 mg/dl (8.5-10.1); Creatinine Clr Calc Pharmacy 15.2 ml/min; Est GFR (African American) 10.3; Est GFR (Non-African American) 8.9; Potassium 5.2 mmol/L (3.5-5.1)
[2019-10-01] MEDS ORDERED: EPOETIN ALFA 10,000 UNITS/ML VIAL IV ONE (08:10)
[2019-10-01] MEDS ORDERED: SODIUM CHLORIDE 0.9% 1000ML 1,000 ML IV PRN (08:10)
[2019-10-01] MEDS ORDERED: ISOSORBIDE MONO EXTENDED REL 30 MG TABCR PO SCH (09:00)
[2019-10-01] MEDS: NICOTINE 14 MG/24 HR PATCH TD SCH (09:16)
[2019-10-01] MEDS: SEVELAMER HCL 800 MG TABLET PO SCH ×3 (09:19→18:38)
--- NOTE | 2019-10-01 09:40 | Cardiology Consultation ---
Date of Consultation October 01, 2019 Assessment & Plan (1) Chest pain: Patient's current presentation appears to be secondary to multiple factorial etiology including volume overload, hypertension and anemia. Enzymes EKGs and echocardiogram do not suggest acute coronary syndrome as etiology. He has known diffuse diabetic coronary disease and prior coronary bypass grafting. Ultimate goals will be once again medical management though diagnostic cardiac catheterization could be entertained if symptoms persist after optimization. Currently on exam and historically improved after dialysis initiated and transfusion administered. Blood pressure is chronically elevated. In the past patient has been on higher dosing of antihypertensive regimen including hydralazine and higher dose of nitrates change during recent hospitalizations Plan: Patient already improving with dialysis and transfusion. Will increase nitrate regimen and add low-dose hydralazine while continuing losartan amlodipine and carvedilol. Clonidine already increased to twice daily but may ultimately be able to reduce. Patient on dual antiplatelet therapy with aspirin and clopidogrel and atorvastatin. We will follow in hospital as clinical course progresses (2) Hypertensive urgency: As above (3) Dyslipidemia: (4) S/P CABG x 2: (5) Volume overload: History of Present Illness Requesting Physician: Dr. Parker Attending Physician: Tyler Parker MD History of Present Illness Patient is a 34-year-old male with extremely complex underlying history of medical issues and recent hospitalizations. His underlying issues include 1. Type 1 diabetes 2. End-stage renal disease on hemodialysis via a right upper extremity fistula. Distribution Sales Representative is Dr. Alen Khan of [facility]. 3. Significant diabetic retinopathy as well as diabetic macular edema of the left eye. 4. In May 2017 he presented for preoperative risk assessment prior to renal transplant. He was referred for dobutamine stress echocardiography, presenting on June 08, 2017 with uncontrolled hypertension. At that time he underwent resting echocardiography revealing severely reduced left ventricular systolic function with qualitative left ventricular ejection fraction of 20 to 24%. The apical inferior and apical septum were noted to be akinetic. No significant valvular disease was observed. 5. July 2017 cardiac catheterization at [facility] revealed multivessel CAD, diffusely diseased circumflex, 100% occlusion LAD, 70% occlusion mid RCA 6. Status post August 16, 2017 coronary artery bypass grafting x 2 with an SANTOS to the LAD and a SVG to the distal RCA. 7. Ischemic cardiomyopathy. Initial EF 20%. EF most recently 40-44% with apical hypokinesis to akinesis 09/03/2019 8. Chronic tobacco abuse 9. Hypertension 10. Dyslipidemia 11. Past medication compliant issues Per review of records and discussion with patient he is recently had extensive hospitalization and is currently a resident of [facility]. Patient was initially found unresponsive on 09/01/2019 with possible active seizing. While being transported to [facility] patient had a PEA arrest and ultimately was transferred to [facility] where he underwent cooling protocol. Admission was notable for marked metabolic derangement and anoxic encephalopathy which gradually improved. He was initially hypotensive and antihypertensive therapies were decreased. Ultimately became more responsive and was treated long care facility prior to transfer to [facility]. Course was notable for requirements for transfusion due to anemia, labile hypertension Patient presents now noting multiple issues yesterday during rehab including transient hypoglycemic reaction followed by an episode of chest pain elevated blood pressures and dyspnea on exertion. Patient's been treated as an inpatient and this morning feels substantially improved. "I think I needed dialysis" has responded to dialysis as well as transfusion for anemia. Currently no chest pain or worsening shortness of breath. No dizziness or lightheadedness. No fevers or chills or productive cough. No bleeding issues melena medication dysuria hematuria. Has been taking medications and denies dietary indiscretion but feels he has been "filling up with fluid" weight up approximately 10 pound EKGs do not reflect acute ischemic changes. Troponins minimally elevated and flat. Echocardiogram consistent with prior apical infarct on prior echocardiograms and is improved from study 1 month ago Allergies Allergy/AdvReac Type Severity Reaction Status Date / Time No Known Allergies Allergy NKA Verified 09/30/19 19:48 Home Medications Home Medications Medication Instructions Recorded Confirmed Type clonidine HCl 0.3 mg PO QAM 11/08/18 09/30/19 History losartan 100 mg PO QAM 11/08/18 09/30/19 History Nephrocaps 1 cap PO QDL 09/30/19 09/30/19 History acetaminophen [Tylenol] 650 mg PO Q4H PRN 09/30/19 09/30/19 History amlodipine 10 mg PO QAM 09/30/19 09/30/19 History aspirin [Aspirin Childrens] 81 mg PO QAM 09/30/19 09/30/19 History atorvastatin 20 mg PO HS 09/30/19 09/30/19 History bisacodyl 10 mg [place] DAILY PRN 09/30/19 09/30/19 History carvedilol 25 mg PO BIDM 09/30/19 09/30/19 History clopidogrel 75 mg PO QAM 09/30/19 09/30/19 History darbepoetin kelly in polysorbat 200 mcg SUBCUT .Q7DAYS 09/30/19 09/30/19 History [Aranesp (in polysorbate)] docusate sodium 100 mg PO BID 09/30/19 09/30/19 History famotidine 20 mg PO QAM 09/30/19 09/30/19 History heparin (porcine) 1,000 unit IV DIRECTED PRN 09/30/19 09/30/19 History insulin glargine [Lantus U-100 12 unit SUBCUT HS 09/30/19 09/30/19 History Insulin] insulin regular human [Humulin R 1 sliding scale dose SUBCUT TIDM 09/30/19 09/30/19 History Regular U-100 Insuln] iron sucrose [Venofer] 100 mg IV WK PRN 09/30/19 09/30/19 History isosorbide mononitrate 30 mg PO QAM 09/30/19 09/30/19 History nicotine 1 patch TRANSDERMAL DAILY 09/30/19 09/30/19 History polyethylene glycol 3350 [Miralax] 17 g PO QDL PRN 09/30/19 09/30/19 History sennosides-docusate sodium 1 tab-cap PO QDL PRN 09/30/19 09/30/19 History [Senokot-S] sevelamer HCl 1,600 mg PO TIDM 09/30/19 09/30/19 History sodium chloride 0.9 % 1,000 ml IV DIRECTED PRN 09/30/19 09/30/19 History Patient History Medical History CAD (coronary artery disease) (Chronic) Diabetic nephropathy (Chronic) Diabetic retinopathy (Chronic) Diastolic dysfunction (Chronic) Dyslipidemia (Chronic) Dyslipidemia (Chronic) ESRD on dialysis (Chronic) ESRD on hemodialysis (Chronic) TUESDAY/TUE/TUESDAY ([place]) Hypertension (Chronic) Ischemic cardiomyopathy (Chronic) Initial EF 20%, echo 01/2019 EF 50 to 54% Macular degeneration (Chronic) Type I diabetes mellitus (Chronic) Surgical History History of tooth extraction (Chronic) S/P CABG x 2 (Chronic) Family History Mother Family history of diabetes mellitus Kidney disease Father Family history of diabetes mellitus Kidney disease Social History Preferred Language: Hebrew Communication Ability: Effective Brush Finisher Required: No Beliefs That Will Affect Care: None marital status: Single Current Living Situation: Family Feels Safe at Home: Yes Safety Concerns: Feels Safe At This Time Smoking Status: Heavy tobacco smoker Tobacco Type: cigarettes ; Cigarettes Per Day: 30 ; Second Hand Exposure: No ; Hx Alcohol Use: No Hx Substance Use: No Review of Systems Review of Systems: All systems reviewed & are unremarkable except as noted in HPI & below Physical Exam Constitutional: Patient examined on dialysis, currently in no acute distress Eyes: PERRL, conjunctivae normal, anicteric sclerae ENMT: external ear and nose normal, oropharynx normal Neck: trachea midline, no thyromegaly Respiratory: normal respiratory effort, lungs clear to auscultation Cardiovascular: Rate/Rhythm: regular rate and regular rhythm Heart Sounds: normal S1 and normal S2; no gallop and no murmur Palpation: normal PMI Vessels: normal carotid upstroke and radial pulses present; no carotid bruit Extremities: + edema (Trace) Gastrointestinal (Abdomen): normal bowel sounds, soft, nontender, no hepatosplenomegaly Musculoskeletal: no cyanosis or clubbing, extremities motor strength 5/5 Skin: no rashes, warm and dry Neurologic: PERRL, EOMI, accommodation nl, no face palsy, no dysarthria Psychiatric: A+Ox3, euthymic affect Results & Data ([facility]) Vital Signs (Past 12 Hours) Vital Signs Temp Pulse Pulse Resp BP BP Pulse Ox 10/01/19 07:00 36.5 C 81 24 180/87 H 91 10/01/19 06:02 80 18 177/88 H 92 10/01/19 04:30 36.6 C 79 18 124/79 94 10/01/19 03:55 36.6 C 75 18 160/81 H 94 10/01/19 02:55 36.6 C 73 18 155/77 H 96 10/01/19 02:25 36.8 C 76 18 165/80 H 97 10/01/19 02:10 36.8 C 75 16 148/76 H 100 10/01/19 01:54 36.7 C 75 16 156/80 H 96 10/01/19 00:25 81 10/01/19 00:01 36.8 C 79 16 171/80 H 94 Laboratory Results Laboratory Results - last 24 hr 09/30/19 09/30/19 09/30/19 19:40 19:40 19:40 WBC 9.15 RBC 2.45 L Hgb 7.7 L Hct 23.0 L MCV 93.9 MCH 31.4 MCHC 33.5 RDW Std Deviation 54.4 H RDW Coeff of Hedy 15.5 H Plt Count 307 MPV 9.8 Immature Gran % (Auto) 0.3 Neut % (Auto) 75.6 Lymph % (Auto) 13.6 Callahan % (Auto) 5.0 Eos % (Auto) 4.3 Baso % (Auto) 1.2 Immature Gran # (Auto) 0.03 H Neut # (Auto) 6.92 H Lymph # (Auto) 1.24 Callahan # (Auto) 0.46 Eos # (Auto) 0.39 Baso # (Auto) 0.11 RBC Morphology Unremarkable ESR PT 11.2 INR 1.1 APTT 27.4 PTT Ratio 1.0 Sodium 131 L Potassium 5.1 Chloride 97 L Carbon Dioxide 26 Anion Gap 9.0 BUN 65 H Creatinine 6.42 H* Est Cr Clr Drug Dosing 17.1 Est GFR ( Amer) 11.9 Est GFR (Non-Af Amer) 10.3 BUN/Creatinine Ratio 10.2 Glucose 353 H* POC Glucose Calcium 8.5 Total Bilirubin 0.3 AST 14 L ALT 24 Alkaline Phosphatase 114 Troponin I 0.058 H* Total Protein 6.9 Albumin 2.9 L Globulin 4.0 Albumin/Globulin Ratio 0.7 L Lipase 290 Beta-Hydroxybutyric Acd 6.35 H Nasal Screen MRSA (PCR) Blood Type Antibody Screen Crossmatch 09/30/19 10/01/19 10/01/19 21:27 00:08 00:13 WBC RBC Hgb Hct MCV MCH MCHC RDW Std Deviation RDW Coeff of Hedy Plt Count MPV Immature Gran % (Auto) Neut % (Auto) Lymph % (Auto) Callahan % (Auto) Eos % (Auto) Baso % (Auto) Immature Gran # (Auto) Neut # (Auto) Lymph # (Auto) Callahan # (Auto) Eos # (Auto) Baso # (Auto) RBC Morphology ESR PT INR APTT PTT Ratio Sodium Potassium Chloride Carbon Dioxide Anion Gap BUN Creatinine Est Cr Clr Drug Dosing Est GFR ( Amer) Est GFR (Non-Af Amer) BUN/Creatinine Ratio Glucose POC Glucose 363 H* 308 H* Calcium Total Bilirubin AST ALT Alkaline Phosphatase Troponin I Total Protein Albumin Globulin Albumin/Globulin Ratio Lipase Beta-Hydroxybutyric Acd Nasal Screen MRSA (PCR) Blood Type B Positive Antibody Screen NEGATIVE Crossmatch See Detail 10/01/19 10/01/19 10/01/19 00:13 03:58 06:32 WBC 7.53 RBC 2.93 L Hgb 8.9 L Hct 27.1 L MCV 92.5 MCH 30.4 MCHC 32.8 RDW Std Deviation 58.8 H RDW Coeff of Hedy 17.4 H Plt Count 309 MPV 10.0 Immature Gran % (Auto) 0.3 Neut % (Auto) 65.3 Lymph % (Auto) 19.0 Callahan % (Auto) 7.8 Eos % (Auto) 6.0 Baso % (Auto) 1.6 Immature Gran # (Auto) 0.02 Neut # (Auto) 4.92 Lymph # (Auto) 1.43 Callahan # (Auto) 0.59 Eos # (Auto) 0.45 Baso # (Auto) 0.12 RBC Morphology ESR PT INR APTT PTT Ratio Sodium Potassium Chloride Carbon Dioxide Anion Gap BUN Creatinine Est Cr Clr Drug Dosing Est GFR ( Amer) Est GFR (Non-Af Amer) BUN/Creatinine Ratio Glucose POC Glucose 224 H Calcium Total Bilirubin AST ALT Alkaline Phosphatase Troponin I 0.051 H* Total Protein Albumin Globulin Albumin/Globulin Ratio Lipase Beta-Hydroxybutyric Acd Nasal Screen MRSA (PCR) Blood Type Antibody Screen Crossmatch 10/01/19 10/01/19 10/01/19 06:32 06:32 06:32 WBC RBC Hgb Hct MCV MCH MCHC RDW Std Deviation RDW Coeff of Hedy Plt Count MPV Immature Gran % (Auto) Neut % (Auto) Lymph % (Auto) Callahan % (Auto) Eos % (Auto) Baso % (Auto) Immature Gran # (Auto) Neut # (Auto) Lymph # (Auto) Callahan # (Auto) Eos # (Auto) Baso # (Auto) RBC Morphology ESR 48 H PT INR APTT 26.9 PTT Ratio 1.0 Sodium 132 L Potassium 5.2 H Chloride 98 Carbon Dioxide 26 Anion Gap 8.0 BUN 72 H Creatinine 7.21 H* D Est Cr Clr Drug Dosing 15.2 Est GFR ( Amer) 10.3 Est GFR (Non-Af Amer) 8.9 BUN/Creatinine Ratio 10.1 Glucose 145 H POC Glucose Calcium 8.5 Total Bilirubin AST ALT Alkaline Phosphatase Troponin I Total Protein Albumin Globulin Albumin/Globulin Ratio Lipase Beta-Hydroxybutyric Acd Nasal Screen MRSA (PCR) Blood Type Antibody Screen Crossmatch 10/01/19 10/01/19 10/01/19 06:32 07:43 12:18 WBC RBC Hgb Hct MCV MCH MCHC RDW Std Deviation RDW Coeff of Hedy Plt Count MPV Immature Gran % (Auto) Neut % (Auto) Lymph % (Auto) Callahan % (Auto) Eos % (Auto) Baso % (Auto) Immature Gran # (Auto) Neut # (Auto) Lymph # (Auto) Callahan # (Auto) Eos # (Auto) Baso # (Auto) RBC Morphology ESR PT INR APTT PTT Ratio Sodium Potassium Chloride Carbon Dioxide Anion Gap BUN Creatinine Est Cr Clr Drug Dosing Est GFR ( Amer) Est GFR (Non-Af Amer) BUN/Creatinine Ratio Glucose POC Glucose 134 H 127 H Calcium Total Bilirubin AST ALT Alkaline Phosphatase Troponin I 0.054 H* Total Protein Albumin Globulin Albumin/Globulin Ratio Lipase Beta-Hydroxybutyric Acd Nasal Screen MRSA (PCR) Blood Type Antibody Screen Crossmatch 10/01/19 Unknown WBC RBC Hgb Hct MCV MCH MCHC RDW Std Deviation RDW Coeff of Hedy Plt Count MPV Immature Gran % (Auto) Neut % (Auto) Lymph % (Auto) Callahan % (Auto) Eos % (Auto) Baso % (Auto) Immature Gran # (Auto) Neut # (Auto) Lymph # (Auto) Callahan # (Auto) Eos # (Auto) Baso # (Auto) RBC Morphology ESR PT INR APTT PTT Ratio Sodium Potassium Chloride Carbon Dioxide Anion Gap BUN Creatinine Est Cr Clr Drug Dosing Est GFR ( Amer) Est GFR (Non-Af Amer) BUN/Creatinine Ratio Glucose POC Glucose Calcium Total Bilirubin AST ALT Alkaline Phosphatase Troponin I Total Protein Albumin Globulin Albumin/Globulin Ratio Lipase Beta-Hydroxybutyric Acd Nasal Screen MRSA (PCR) Negative Blood Type Antibody Screen Crossmatch Diagnostic Findings Echocardiogram 09/03/2019 The qualitative LV ejection fraction is 40-44% (mildly reduced). There is a large sized apical, septal, anteroseptal, anterior, and inferior wall motion abnormality with hypokinesis to akinesis of the segments. There is dyssynchronous LV contractility. The LV wall thickness is moderately increased (concentric). The right ventricular systolic function is moderately reduced . No significant valvular disease is present. No pericardial effusion is noted. (1) Chest pain Chest pain type: precordial pain Qualified Code(s): R07.2 - Precordial pain
--- NOTE | 2019-10-01 10:17 | Nephrology Consultation ---
Date of Consultation October 01, 2019 Assessment & Plan (1) Hypertension: (2) Volume overload: 34-year-old he end-stage renal disease on hemodialysis admitted with CP and volume overload. BP has been high. Recent prolonged hospitalization at [facility] after cardiac arrest and has been at [facility] for last few days. -- schedule for dialysis this am for 4 hours with 2K bath. UF at least 3 L, as he is almost >8 kg above EDW. --plan for extra HD tomorrow mainly for UF to get close to EDW, fluid restriction to <1L/d --phosphate binder with meals --give Epogen 85956 units x1 dose during dialysis --dose medications for GFR less than 10 Will Follow Thank you for allowing me to participate in your patient's care. It was a pleasure to see Yariel (3) Hyperkalemia: History of Present Illness Attending Physician: Tyler Parker MD History of Present Illness Km Rebolledo is a 34 year old gentlemen with PMH significant for ESRD on HD, HTN, DM, ischemic cardiomyopathy, S/P CABG admitted to the hospital with chest Nephrology consult was requested for management of hemodialysis and improvement in volume status. Electronic medical records including labs and imaging reviewed in detail during patient's visit. Yariel was recently at [facility] after he had cardiac arrest. He had prolonged hospital course and last week he was discharged to [facility] for rehab. He had dialysis Tuesday as his regular schedule. With recent prolonged hospitalization he lost some weight and he has dry weight was close to around 70 to 71 kg recently. Yesterday he was admitted after he developed chest pain while at rehab. On admission CT chest with PE protocol was negative for PE. He was found to be hypertensive and significantly volume overloaded with pulmonary congestion. His weight was 78.4 kg.. Electrolyte has been acceptable except mild hyperkalemia. Blood pressure has been elevated. EKG with no acute changes, troponin was unremarkable. Has end-stage disease setting hypertension, diabetes and coronary artery disease. Has been on dialysis on MWF via left BC AV fistula. Has been pretty noncompliant with dialysis, frequently missing treatments and coming with volume overload and elevated blood pressure. His His past medical history also significant for hypertension, diabetes, ischemic cardiomyopathy, CAD s/p CABG. Chest pain seems to have resolved currently, he denies any significant shortness of breath. Allergies Allergy/AdvReac Type Severity Reaction Status Date / Time No Known Allergies Allergy NKA Verified 09/30/19 19:48 Home Medications Home Medications Medication Instructions Recorded Confirmed Type clonidine HCl 0.3 mg PO QAM 11/08/18 09/30/19 History losartan 100 mg PO QAM 11/08/18 09/30/19 History Nephrocaps 1 cap PO QDL 09/30/19 09/30/19 History acetaminophen [Tylenol] 650 mg PO Q4H PRN 09/30/19 09/30/19 History amlodipine 10 mg PO QAM 09/30/19 09/30/19 History aspirin [Aspirin Childrens] 81 mg PO QAM 09/30/19 09/30/19 History atorvastatin 20 mg PO HS 09/30/19 09/30/19 History bisacodyl 10 mg [place] DAILY PRN 09/30/19 09/30/19 History carvedilol 25 mg PO BIDM 09/30/19 09/30/19 History clopidogrel 75 mg PO QAM 09/30/19 09/30/19 History darbepoetin kelly in polysorbat 200 mcg SUBCUT .Q7DAYS 09/30/19 09/30/19 History [Aranesp (in polysorbate)] docusate sodium 100 mg PO BID 09/30/19 09/30/19 History famotidine 20 mg PO QAM 09/30/19 09/30/19 History heparin (porcine) 1,000 unit IV DIRECTED PRN 09/30/19 09/30/19 History insulin glargine [Lantus U-100 12 unit SUBCUT HS 09/30/19 09/30/19 History Insulin] insulin regular human [Humulin R 1 sliding scale dose SUBCUT TIDM 09/30/19 09/30/19 History Regular U-100 Insuln] iron sucrose [Venofer] 100 mg IV WK PRN 09/30/19 09/30/19 History isosorbide mononitrate 30 mg PO QAM 09/30/19 09/30/19 History nicotine 1 patch TRANSDERMAL DAILY 09/30/19 09/30/19 History polyethylene glycol 3350 [Miralax] 17 g PO QDL PRN 09/30/19 09/30/19 History sennosides-docusate sodium 1 tab-cap PO QDL PRN 09/30/19 09/30/19 History [Senokot-S] sevelamer HCl 1,600 mg PO TIDM 09/30/19 09/30/19 History sodium chloride 0.9 % 1,000 ml IV DIRECTED PRN 09/30/19 09/30/19 History Patient History Medical History CAD (coronary artery disease) (Chronic) Diabetic nephropathy (Chronic) Diabetic retinopathy (Chronic) Diastolic dysfunction (Chronic) Dyslipidemia (Chronic) Dyslipidemia (Chronic) ESRD on dialysis (Chronic) ESRD on hemodialysis (Chronic) TUESDAY/TUE/TUESDAY ([place]) Hypertension (Chronic) Ischemic cardiomyopathy (Chronic) Initial EF 20%, echo 01/2019 EF 50 to 54% Macular degeneration (Chronic) Type I diabetes mellitus (Chronic) Surgical History History of tooth extraction (Chronic) S/P CABG x 2 (Chronic) Family History Mother Family history of diabetes mellitus Kidney disease Father Family history of diabetes mellitus Kidney disease Social History Preferred Language: Croatian Communication Ability: Effective Wood Chopper Required: No Beliefs That Will Affect Care: None marital status: Single Current Living Situation: Family Feels Safe at Home: Yes Safety Concerns: Feels Safe At This Time Smoking Status: Heavy tobacco smoker Tobacco Type: cigarettes ; Cigarettes Per Day: 30 ; Second Hand Exposure: No ; Hx Alcohol Use: No Hx Substance Use: No Review of Systems Review of Systems: All systems reviewed & are unremarkable except as noted in HPI & below Physical Exam Constitutional: + ill appearing and + edematous; no acute distress Eyes: PERRL, conjunctivae normal, anicteric sclerae ENMT: external ear and nose normal, oropharynx normal Neck: normal visual inspection Respiratory: normal respiratory effort; no respiratory distress Auscultation: + rales Cardiovascular: Rate/Rhythm: regular rate and regular rhythm Heart Sounds: normal S1 and normal S2 Extremities: + edema Gastrointestinal (Abdomen): Inspection/Auscultation: normal bowel sounds Percussion/Palpation: abdomen soft; abdomen nontender Musculoskeletal: Extremities: extremities normal to inspection Skin: no rashes, warm and dry Neurologic: moves all extremities and awake; no focal motor deficits and not confused Psychiatric: Orientation: alert and oriented x 3 Affect: + flat affect Results & Data Vital Signs (Past 12 Hours) Vital Signs Temp Pulse Pulse Resp BP BP Pulse Ox 10/01/19 10:00 86 156/84 H 10/01/19 09:44 37.1 C 79 79 160/84 H 10/01/19 07:00 36.5 C 81 24 180/87 H 91 10/01/19 06:02 80 18 177/88 H 92 10/01/19 04:30 36.6 C 79 18 124/79 94 10/01/19 03:55 36.6 C 75 18 160/81 H 94 10/01/19 02:55 36.6 C 73 18 155/77 H 96 10/01/19 02:25 36.8 C 76 18 165/80 H 97 10/01/19 02:10 36.8 C 75 16 148/76 H 100 10/01/19 01:54 36.7 C 75 16 156/80 H 96 10/01/19 00:25 81 10/01/19 00:01 36.8 C 79 16 171/80 H 94 PG Care Time/CCT Total # of Minutes Spent Total Time Spent with Patient: Total time spent is greater than 50% in coordination of care (as documented) at patient's floor/unit and/or counseling patient: Coding Level of Care Code 88388 Inpt Consult Level 5 Diagnoses Hypertension I10 Volume overload E87.70 Hyperkalemia E87.5
--- NOTE | 2019-10-01 11:18 | Electrocardiogram Report ---
Test Reason : Blood Pressure : / mmHG Vent. Rate : 080 BPM Atrial Rate : 080 BPM P-R Int : 178 ms QRS Dur : 098 ms QT Int : 400 ms P-R-T Axes : 057 066 128 degrees QTc Int : 461 ms Normal sinus rhythm Possible Left atrial enlargement Septal infarct (cited on or before 31-AUG-2019) Abnormal ECG When compared with ECG of 30-SEP-2019 19:33, (unconfirmed) Serial changes of Septal infarct Present Confirmed by Klaus Moses ([id number]) on 10/01/2019 11:18:13 AM Referred By: REFERRED SELF Confirmed By:Klaus Moses
--- NOTE | 2019-10-01 11:18 | Electrocardiogram Report ---
Test Reason : Blood Pressure : / mmHG Vent. Rate : 082 BPM Atrial Rate : 082 BPM P-R Int : 172 ms QRS Dur : 104 ms QT Int : 414 ms P-R-T Axes : 057 075 127 degrees QTc Int : 483 ms Normal sinus rhythm Possible Left atrial enlargement Septal infarct (cited on or before 31-AUG-2019) T wave abnormality, consider lateral ischemia Abnormal ECG When compared with ECG of 31-AUG-2019 23:50, Serial changes of Septal infarct Present Confirmed by Klaus Moses ([id number]) on 10/01/2019 11:17:45 AM Referred By: REFERRED SELF Confirmed By:Klaus Moses
--- NOTE | 2019-10-01 11:20 | Electrocardiogram Report ---
Test Reason : Blood Pressure : / mmHG Vent. Rate : 079 BPM Atrial Rate : 079 BPM P-R Int : 178 ms QRS Dur : 108 ms QT Int : 394 ms P-R-T Axes : 051 070 143 degrees QTc Int : 451 ms Normal sinus rhythm Possible Left atrial enlargement Poor R wave progression, consider anterior TN vs. lead placement vs. LVH T wave abnormality, consider lateral ischemia Abnormal ECG When compared with ECG of 30-SEP-2019 20:50, (unconfirmed) No significant change was found Confirmed by Klaus Moses ([id number]) on 10/01/2019 11:20:25 AM Referred By: REFERRED SELF Confirmed By:Klaus Moses
--- NOTE | 2019-10-01 12:08 | Pharmacy Report ---
Glycemic Control Consultation - Date of Service October 01, 2019 - Scope Scope: Glycemic Pharmacist consulted for glycemic control and to write orders per [facility] inpatient glycemic control protocol. - Objective Weight: 78.4 kg Accuchecks BSG (last 24hrs): 09/30/19 09/30/19 10/01/19 19:40 21:27 00:08 Glucose 353 H* POC Glucose 363 H* 308 H* 10/01/19 10/01/19 10/01/19 03:58 06:32 07:43 Glucose 145 H POC Glucose 224 H 134 H Laboratory Data (last 24hrs): 09/30/19 10/01/19 19:40 06:32 Potassium 5.1 5.2 H Carbon Dioxide 26 26 Anion Gap 9.0 8.0 Creatinine 6.42 H* 7.21 H* D Est Cr Clr Drug Dosing 17.1 15.2 Beta-Hydroxybutyric Acd 6.35 H - Recent Pertinent Medications Outpatient Anti-diabetic Regimen: * Lantus 12 units SC HS * Regular insulin TIDM, sliding scale 0-12 units * A1c not obtained 2nd ESRD Risk Factors for Insulin Resistance: * Diet: T1DM starting at dinner - Assessment & Plan Assessment & Plan: ASSESSMENT: * 34 yo male with T1DM admitted with chest pain * PMH: ESRD, recent PEA cardiac arrest 2nd NSTEMI ~1 month ago, chronic anemia, CABG, ischemic cardiomyopathy, HTN * Lantus reduced last night from home dose despite noted hyperglycemia yesterday due to report of outpatient hypoglycemia yesterday prior to arrival. Will add on a scale today. * Will resume Novolog regimen from previous admission as it seemed to control BSG's well (after basal deficiency last admission was resolved) PLAN FOR INPATIENT GLYCEMIC CONTROL: * Basal insulin * Lantus 10-12 units SQ qAM based on BSG - see MAR for details * Bolus insulin * NovoLog per scale ACHS or Q6hrs while NPO * Goal Range: Low 120 mg/dL - High 160 mg/dL * Correction Factor: 40 mg/dL/unit * Nutritional / Prandial insulin per carb ratio of 1 unit per 20 grams CHO consumed * Please note that the plan above was derived based on current level of insulin resistance and hospital stress. These recommendations are appropriate for inpatient admission only. Plan of care upon discharge will need to be reassessed to avoid potential outpatient hypo/hyperglycemia. Thank you.
--- NOTE | 2019-10-01 14:21 | Hospitalist Progress Note ---
Date of Service October 01, 2019 Assessment & Plan (1) Chest pain: Present on admission with chest pain that worsening with deep breathing Significant Cardiac history with recent cardiac arrest, non ST elevation [place] in Feb, CAD s/p CABG Troponin on admission 0.058, then 0.051--> 0.054 CXR showed poorly defined parenchymal infiltrate right base. CTA chest showed no PE. cardiomegaly with prominent pulmonary vasculature. Pleural thickening right and to a lesser extent left base with mild per ibronchial infiltrative change bilaterally. EKG showed no ischemic changes Cardio on board Echo showed mild concentric left ventricular hypertrophy. Moderate hypokinesis of the apical septum. Ejection fraction 50 to 55% Continue topical nitro Continue Aspirin, Plavix, Coreg and Statin Currently denies any chest pain Anemia Patient's baseline hemoglobin is 10-11 Hgb 7.7 on admission received 1 unit PBBC Hgb 8.9 today Continue Monitor CBC HISTORY OF ISCHEMIC CARDIOMYOPATHY EF 40 TO 45% Getting HD now where nephro plan to remove 4L of fluid Clinically stable ESRD Nephrology on board Currently getting HD and plan to HD tomorrow Pt was advised to be compliance with HD Monitor electrolytes HYPERTENSION BP elevated Continue Imdur, losartan, Coreg, clonidine, amlodipine Hydralazine and topical nitro added Continue monitor BP DIABETES TYPE 1 Pharmacy on board for glycemic management Continue Novolog sliding scale and lantus Continue monitor BS HISTORY OF SEIZURE Associated with cardiac arrest episode stable DVT prophylaxis SCDs Code Status Full code Disposition -Anticipate to transition back to [facility] when medically stable Admission and Anticipated Discharge Date Admission Date: September 30, 2019 Subjective Pt was seen and examined Lying in bed comfortable watching TV while getting HD Pt said that he feels fine Denies any chest pain, palpitation, dizziness and SOB Physical Exam Physical Exam: General- No acute distress Head- atraumatic Eyes- PERRL, EOMI, ENT- oropharynx clear Neck- supple, no JVD Lungs- clear to auscultation Heart- regular rhythm; no murmur Abdomen- normal bowel sounds, soft, nontender Extremities- no calf tenderness, trace edema Neuro- alert, oriented x 3; PERRL, EOMI; no facial palsy; no dysarthria Skin- warm & dry Results & Data Results & Data ([facility]) Vital Signs (Past 12 Hours) Vital Signs Temp Pulse Pulse Resp BP BP Pulse Ox 10/01/19 13:40 99 H 167/90 H 03/30/20 13:20 98 H 164/91 H 10/01/19 13:00 96 H 164/90 H 10/01/19 12:40 96 H 170/84 H 10/01/19 12:20 94 H 150/83 H 10/01/19 12:00 93 H 153/76 H 10/01/19 11:40 89 137/76 10/01/19 11:20 89 142/74 H 10/01/19 11:00 86 133/79 10/01/19 10:40 86 152/82 H 10/01/19 10:24 79 10/01/19 10:20 84 157/86 H 10/01/19 10:00 86 156/84 H 10/01/19 09:44 37.1 C 79 79 160/84 H 10/01/19 08:00 10/01/19 07:00 36.5 C 81 24 180/87 H 91 10/01/19 06:02 80 18 177/88 H 92 10/01/19 04:30 36.6 C 79 18 124/79 94 10/01/19 03:55 36.6 C 75 18 160/81 H 94 10/01/19 02:55 36.6 C 73 18 155/77 H 96 10/01/19 02:25 36.8 C 76 18 165/80 H 97 Pulse Ox 10/01/19 13:40 10/01/19 13:20 10/01/19 13:00 10/01/19 12:40 10/01/19 12:20 10/01/19 12:00 10/01/19 11:40 10/01/19 11:20 10/01/19 11:00 10/01/19 10:40 10/01/19 10:24 10/01/19 10:20 10/01/19 10:00 10/01/19 09:44 10/01/19 08:00 91 10/01/19 07:00 10/01/19 06:02 10/01/19 04:30 10/01/19 03:55 10/01/19 02:55 10/01/19 02:25 (1) Chest pain Chest pain type: precordial pain Qualified Code(s): R07.2 - Precordial pain
[2019-10-01] MEDS: cloNIDine HCL 0.3 MG TAB PO SCH ×2 (14:24→20:22)
[2019-10-01] MEDS: ISOSORBIDE MONO EXTENDED REL 60 MG TABCR PO SCH (14:24)
[2019-10-01] MEDS: ASPIRIN 81 MG ECTAB PO SCH (14:25)
[2019-10-01] MEDS: CLOPIDOGREL BISULFATE 75 MG TAB PO SCH (14:25)
[2019-10-01] MEDS: carvediloL 25 MG TAB PO SCH ×2 (14:26→18:37)
[2019-10-01] MEDS: AMLODIPINE BESYLATE 5 MG TAB PO SCH (14:26)
[2019-10-01] MEDS: NEPHROCAPS PO SCH (14:26)
[2019-10-01] MEDS: LOSARTAN POTASSIUM 50 MG TAB PO SCH (14:27)
[2019-10-01] MEDS: DOCUSATE SODIUM 100 MG CAP PO SCH ×2 (14:27→20:22)
[2019-10-01] MEDS: FAMOTIDINE 20 MG TAB PO SCH (14:27)
[2019-10-01] MEDS: ATORVASTATIN 20 MG TAB PO SCH (20:24)
[2019-10-01] MEDS: INSULIN GLARGINE SOLOSTAR 100 UNITS/ML 3 ML PEN SC SCH (20:30)
[2019-10-02] MEDS: NITROGLYCERIN 2% OINTMENT 30GM TUBE EXT SCH ×4 (01:24→17:39)
[2019-10-02] MEDS ORDERED: SODIUM CHLORIDE 0.9% 1000ML 1,000 ML IV PRN (07:00)
[2019-10-02 07:06] LABS: Basophils # (auto) 0.09 K/uL (0-0.2); Basophils % (auto) 1.2 %; Eosinophils # (auto) 0.26 K/uL (0-0.5); Eosinophils % (auto) 3.5 %; Hematocrit (blood only) 25.8 % (42-52); Hemoglobin 8.4 g/dL (14.0-18.0); Immature Granulocytes # (auto) 0.01 K/uL (0.00-0.02); Immature Granulocytes % (auto) 0.1 %; Lymphocytes % (auto) 25.6 %; Mean Corpuscular Hemoglobin 30.8 pg (25-34); Mean Corpuscular Hgb Conc 32.6 g/dL (32-36); Mean Corpuscular Volume 94.5 fL (80-100); Mean Platelet Volume 9.8 fL (7.4-10.4); Monocytes # (auto) 0.92 K/uL (0.11-0.59); Monocytes % (auto) 12.4 %; Neutrophils # (auto) 4.25 K/uL (1.4-6.5); Neutrophils % (auto) 57.2 %; Platelet Count 270 K/uL (130-400); RDW Coefficient of Variation 18.5 % (11.5-14.5); RDW Standard Deviation 62.2 fL (36.4-46.3); Red Blood Count 2.73 M/uL (4.7-6.1); White Blood Count 7.43 K/uL (4.8-10.8)
[2019-10-02 07:50] LABS: Calcium 8.8 mg/dl (8.5-10.1); Creatinine Clr Calc Pharmacy 22.7 ml/min; Est GFR (African American) 16.7; Est GFR (Non-African American) 14.4; Potassium 4.2 mmol/L (3.5-5.1)
--- NOTE | 2019-10-02 08:03 | Pharmacy Report ---
Pharmacy Glycemic Short Note 2 - Date of Service October 02, 2019 - Glycemic Short BSG Results (Last 24 hours): 10/01/19 10/01/19 10/01/19 12:18 16:20 20:15 Glucose POC Glucose 127 H 115 H 226 H 10/01/19 10/01/19 10/01/19 21:13 21:15 21:16 Glucose POC Glucose > 600 H* 261 H 246 H 10/02/19 10/02/19 10/02/19 04:59 06:39 07:43 Glucose 125 H POC Glucose 148 H 134 H Outpatient Anti-diabetic Regimen: * Lantus 12 units SC HS * Regular insulin TIDM, sliding scale 0-12 units * A1c not obtained 2nd ESRD Risk Factors for Insulin Resistance: * Diet: T1DM ASSESSMENT: * 34 yo male with T1DM admitted with chest pain * PMH: ESRD, recent PEA cardiac arrest 2nd NSTEMI ~1 month ago, chronic anemia, CABG, ischemic cardiomyopathy, HTN * BSG's ranged 115-134 mg/dL yesterday, with the exception of a BSG of 226 mg/dL at HS 2nd refused dose of Novolog with dinner * AM fasting BSG in goal range today - no change to Lantus * Unable to assess efficacy of CHO ratio at this time 2nd refused Novolog at dinner yesterday. But since BSG increased from breakfast to lunch today, will tighten CHO ratio. PLAN FOR INPATIENT GLYCEMIC CONTROL: * Basal insulin * Lantus 10-12 units SQ qAM based on BSG - see MAR for details * Bolus insulin * NovoLog per scale ACHS or Q6hrs while NPO * Goal Range: Low 110 mg/dL - High 140 mg/dL * Correction Factor: 40 mg/dL/unit * Nutritional / Prandial insulin per carb ratio of 1 unit per 16 grams CHO consumed
[2019-10-02] MEDS: INSULIN ASPART 100 UNITS/ML 3 ML PEN SC SCH ×4 (08:20→20:22)
[2019-10-02] MEDS: AMLODIPINE BESYLATE 5 MG TAB PO SCH (08:22)
[2019-10-02] MEDS: DOCUSATE SODIUM 100 MG CAP PO SCH ×2 (08:22→20:21)
[2019-10-02] MEDS: ISOSORBIDE MONO EXTENDED REL 60 MG TABCR PO SCH (08:22)
[2019-10-02] MEDS: cloNIDine HCL 0.3 MG TAB PO SCH (08:23)
[2019-10-02] MEDS: NICOTINE 14 MG/24 HR PATCH TD SCH (08:24)
[2019-10-02] MEDS: SEVELAMER HCL 800 MG TABLET PO SCH ×3 (08:24→16:57)
[2019-10-02] MEDS: LOSARTAN POTASSIUM 50 MG TAB PO SCH (08:24)
[2019-10-02] MEDS: CLOPIDOGREL BISULFATE 75 MG TAB PO SCH (08:25)
[2019-10-02] MEDS: carvediloL 25 MG TAB PO SCH ×2 (08:25→16:57)
[2019-10-02] MEDS: FAMOTIDINE 20 MG TAB PO SCH (08:25)
[2019-10-02] MEDS: ASPIRIN 81 MG ECTAB PO SCH (09:00)
--- NOTE | 2019-10-02 11:16 | Cardiology Progress Note ---
Date of Service October 02, 2019 Assessment & Plan (1) Chest pain: Patient's current presentation appears to be secondary to multiple factorial etiology including volume overload, hypertension and anemia. Enzymes EKGs and echocardiogram do not suggest acute coronary syndrome as etiology. He has known diffuse diabetic coronary disease and prior coronary bypass grafting. Ultimate goals will be once again medical management though diagnostic cardiac catheterization could be entertained if symptoms persist after optimization. Patient has longstanding history of ischemic heart disease as outlined who presented with exacerbation of symptoms in the setting of anemia, volume overload, marked hypertension. Patient currently stable and improved no acute coronary syndrome by enzyme or EKG. Medications being adjusted for optimization of blood pressure control. Hydralazine restarted. We will change clonidine dosing to 0.2 mg twice daily to limit side effects (2) Hypertensive urgency: As above (3) Dyslipidemia: (4) S/P CABG x 2: (5) Volume overload: Subjective Patient seen, examined, chart, medications, telemetry reviewed. Feels substantially improved since admission. No further chest pains or discomfort overnight. No dizziness or lightheadedness. Anticipates repeat dialysis later today. Blood pressures are trending towards better control. No fevers chills or productive cough. Physical Exam Eyes: PERRL, conjunctivae normal, anicteric sclerae ENMT: external ear and nose normal, oropharynx normal Neck: trachea midline, no thyromegaly Respiratory: normal respiratory effort, lungs clear to auscultation Cardiovascular: Rate/Rhythm: regular rate and regular rhythm Heart Sounds: normal S1 and normal S2; no gallop and no murmur Palpation: normal PMI Vessels: normal carotid upstroke and radial pulses present; no carotid bruit Extremities: + edema (Trace) Gastrointestinal (Abdomen): normal bowel sounds, soft, nontender, no hepatosplenomegaly Musculoskeletal: no cyanosis or clubbing, extremities motor strength 5/5 Skin: no rashes, warm and dry Neurologic: PERRL, EOMI, accommodation nl, no face palsy, no dysarthria Psychiatric: A+Ox3, euthymic affect Results & Data Vital Signs (Past 12 Hours) Vital Signs Temp Pulse Resp BP Pulse Ox Pulse Ox 10/02/19 10:48 36.8 C 76 18 166/70 H 91 10/02/19 08:00 96 10/02/19 07:52 37.1 C 85 18 181/89 H 91 10/02/19 03:59 37.8 C H 89 17 138/68 94 10/01/19 23:57 37.4 C 89 17 165/85 H 92 Laboratory Results Laboratory Results - last 24 hr 10/01/19 10/01/19 10/01/19 12:18 16:20 20:15 WBC RBC Hgb Hct MCV MCH MCHC RDW Std Deviation RDW Coeff of Hedy Plt Count MPV Immature Gran % (Auto) Neut % (Auto) Lymph % (Auto) Mora % (Auto) Eos % (Auto) Baso % (Auto) Immature Gran # (Auto) Neut # (Auto) Lymph # (Auto) Mora # (Auto) Eos # (Auto) Baso # (Auto) Sodium Potassium Chloride Carbon Dioxide Anion Gap BUN Creatinine Est Cr Clr Drug Dosing Est GFR ( Amer) Est GFR (Non-Af Amer) BUN/Creatinine Ratio Glucose POC Glucose 127 H 115 H 226 H Calcium 10/01/19 10/01/19 10/01/19 21:13 21:15 21:16 WBC RBC Hgb Hct MCV MCH MCHC RDW Std Deviation RDW Coeff of Hedy Plt Count MPV Immature Gran % (Auto) Neut % (Auto) Lymph % (Auto) Mora % (Auto) Eos % (Auto) Baso % (Auto) Immature Gran # (Auto) Neut # (Auto) Lymph # (Auto) Mora # (Auto) Eos # (Auto) Baso # (Auto) Sodium Potassium Chloride Carbon Dioxide Anion Gap BUN Creatinine Est Cr Clr Drug Dosing Est GFR ( Amer) Est GFR (Non-Af Amer) BUN/Creatinine Ratio Glucose POC Glucose > 600 H* 261 H 246 H Calcium 10/02/19 10/02/19 10/02/19 04:59 06:39 06:39 WBC 7.43 RBC 2.73 L Hgb 8.4 L Hct 25.8 L MCV 94.5 MCH 30.8 MCHC 32.6 RDW Std Deviation 62.2 H RDW Coeff of Hedy 18.5 H Plt Count 270 MPV 9.8 Immature Gran % (Auto) 0.1 Neut % (Auto) 57.2 Lymph % (Auto) 25.6 Mora % (Auto) 12.4 Eos % (Auto) 3.5 Baso % (Auto) 1.2 Immature Gran # (Auto) 0.01 Neut # (Auto) 4.25 Lymph # (Auto) 1.90 Mora # (Auto) 0.92 H Eos # (Auto) 0.26 Baso # (Auto) 0.09 Sodium 134 L Potassium 4.2 D Chloride 100 Carbon Dioxide 32 Anion Gap 2.0 L BUN 35 H D Creatinine 4.84 H* D Est Cr Clr Drug Dosing 22.7 Est GFR ( Amer) 16.7 Est GFR (Non-Af Amer) 14.4 BUN/Creatinine Ratio 7.0 L Glucose 125 H POC Glucose 148 H Calcium 8.8 10/02/19 07:43 WBC RBC Hgb Hct MCV MCH MCHC RDW Std Deviation RDW Coeff of Hedy Plt Count MPV Immature Gran % (Auto) Neut % (Auto) Lymph % (Auto) Mora % (Auto) Eos % (Auto) Baso % (Auto) Immature Gran # (Auto) Neut # (Auto) Lymph # (Auto) Mora # (Auto) Eos # (Auto) Baso # (Auto) Sodium Potassium Chloride Carbon Dioxide Anion Gap BUN Creatinine Est Cr Clr Drug Dosing Est GFR ( Amer) Est GFR (Non-Af Amer) BUN/Creatinine Ratio Glucose POC Glucose 134 H Calcium (1) Chest pain Chest pain type: precordial pain Qualified Code(s): R07.2 - Precordial pain
[2019-10-02] MEDS: NEPHROCAPS PO SCH (11:28)
--- NOTE | 2019-10-02 11:48 | Nephrology Progress Note ---
Date of Service October 02, 2019 Assessment & Plan (1) Hypertension: (2) Volume overload: 34-year-old with ESRD on hemodialysis admitted with CP and volume overload. BP has been high. Recent prolonged hospitalization at [facility] after cardiac arrest and has been at [facility] for last few days. Had dialysis yesterday with 3 liters UF, overall feeling better however continues to be volume overloaded and blood pressure running high. --extra dialysis today for UF to get close to EDW, fluid restriction to <1L/d --start phosphate binder with meals --received Epogen 30858 units yesterday. --dose medications for GFR less than 10 Will Follow (3) Hyperkalemia: Subjective December was seen and examined this morning. Overall he is feeling much better, denies shortness of breath or chest pain. Had dialysis yesterday with 3 liters UF. Continues to be volume overloaded and blood pressure running high. Electrolyte acceptable. Review of Systems Review of Systems: All systems reviewed & are unremarkable except as noted in HPI & below Physical Exam Constitutional: WD/WN, vitals as above + edematous; no acute distress Respiratory: normal respiratory effort; no respiratory distress Auscultation: + rales Cardiovascular: Rate/Rhythm: regular rate and regular rhythm Heart Sounds: normal S1 and normal S2 Extremities: + edema Skin: no rashes, warm and dry Neurologic: moves all extremities and awake; no focal motor deficits and not confused Psychiatric: Orientation: alert and oriented x 3 Affect: + flat affect Results & Data Vital Signs (Past 12 Hours) Vital Signs Temp Pulse Resp BP Pulse Ox Pulse Ox 10/02/19 10:48 36.8 C 76 18 166/70 H 91 10/02/19 08:00 96 10/02/19 07:52 37.1 C 85 18 181/89 H 91 10/02/19 03:59 37.8 C H 89 17 138/68 94 10/01/19 23:57 37.4 C 89 17 165/85 H 92 PG Care Time/CCT Total # of Minutes Spent Total Time Spent with Patient: Total time spent is greater than 50% in coordination of care (as documented) at patient's floor/unit and/or counseling patient: Coding Level of Care Code 65932 Subseq Hosp Care Lvl 3 Diagnoses Hypertension I10 Volume overload E87.70 Hyperkalemia E87.5
--- NOTE | 2019-10-02 15:44 | Hospitalist Progress Note ---
Date of Service October 02, 2019 Assessment & Plan (1) Chest pain: Present on admission with chest pain that worsening with deep breathing Significant Cardiac history with recent cardiac arrest, non ST elevation [place] in Feb, CAD s/p CABG Troponin on admission 0.058, then 0.051--> 0.054 CXR showed poorly defined parenchymal infiltrate right base. CTA chest showed no PE. cardiomegaly with prominent pulmonary vasculature. Pleural thickening right and to a lesser extent left base with mild per ibronchial infiltrative change bilaterally. EKG showed no ischemic changes Cardio on board Echo showed mild concentric left ventricular hypertrophy. Moderate hypokinesis of the apical septum. Ejection fraction 50 to 55% Continue topical nitro Continue Aspirin, Plavix, Coreg and Statin Currently denies any chest pain Anemia Patient's baseline hemoglobin is 10-11 Hgb 7.7 on admission received 1 unit PBBC Hgb 8.4 today Continue Monitor CBC HISTORY OF ISCHEMIC CARDIOMYOPATHY EF 40 TO 45% Had HD done yesterday where 4L of fluid removed Plan to get HD again today Clinically stable ESRD Nephrology on board had HD done yesterday and plan for HD today Pt was advised to be compliance with HD Monitor electrolytes HYPERTENSION BP elevated Continue Imdur, losartan, Coreg, amlodipine Hydralazine increased to 25mg BID and topical nitro added Clonidine decreased to 0.2 mg BID to decrease the risk of side effect Continue monitor BP DIABETES TYPE 1 Pharmacy on board for glycemic management Continue Novolog sliding scale and lantus Continue monitor BS HISTORY OF SEIZURE Associated with cardiac arrest episode stable DVT prophylaxis SCDs Code Status Full code Disposition Possible discharge back to [facility] tomorrow if BP control and stable Admission and Anticipated Discharge Date Admission Date: September 30, 2019 Subjective Pt was seen and examined Lying in bed with no distress Pt said that he feels fine Denies any chest pain, palpitation, dizziness and SOB Physical Exam Physical Exam: General- No acute distress Head- atraumatic Eyes- PERRL, EOMI, ENT- oropharynx clear Neck- supple, no JVD Lungs- clear to auscultation Heart- regular rhythm; no murmur Abdomen- normal bowel sounds, soft, nontender Extremities- no calf tenderness, trace edema Neuro- alert, oriented x 3; PERRL, EOMI; no facial palsy; no dysarthria Skin- warm & dry Results & Data Results & Data ([facility]) Vital Signs (Past 12 Hours) Vital Signs Temp Pulse Pulse Resp BP BP Pulse Ox 10/02/19 15:00 77 127/73 10/02/19 14:40 76 141/70 H 10/02/19 14:20 76 137/69 10/02/19 14:00 74 109/50 L 10/02/19 13:40 75 106/58 L 10/02/19 13:20 74 99/51 L 10/02/19 13:00 74 111/53 L 10/02/19 12:40 74 115/56 L 10/02/19 12:20 74 115/57 L 10/02/19 12:00 74 133/69 10/02/19 11:40 69 153/52 H 10/02/19 11:30 36.9 C 76 10/02/19 10:48 36.8 C 76 18 166/70 H 91 10/02/19 08:00 10/02/19 07:52 37.1 C 85 18 181/89 H 91 10/02/19 03:59 37.8 C H 89 17 138/68 94 Pulse Ox 10/02/19 15:00 10/02/19 14:40 10/02/19 14:20 10/02/19 14:00 10/02/19 13:40 10/02/19 13:20 10/02/19 13:00 10/02/19 12:40 10/02/19 12:20 10/02/19 12:00 10/02/19 11:40 10/02/19 11:30 10/02/19 10:48 10/02/19 08:00 96 10/02/19 07:52 10/02/19 03:59 (1) Chest pain Chest pain type: precordial pain Qualified Code(s): R07.2 - Precordial pain
[2019-10-02] MEDS: ATORVASTATIN 20 MG TAB PO SCH (20:21)
[2019-10-02] MEDS: cloNIDine HCL 0.1 MG TAB PO SCH (20:22)
[2019-10-02] MEDS: INSULIN GLARGINE SOLOSTAR 100 UNITS/ML 3 ML PEN SC SCH (20:23)
[2019-10-03] MEDS: NITROGLYCERIN 2% OINTMENT 30GM TUBE EXT SCH ×2 (00:10→05:44)
[2019-10-03 05:58] LABS: Basophils # (auto) 0.08 K/uL (0-0.2); Basophils % (auto) 1.3 %; Eosinophils % (auto) 4.7 %; Hematocrit (blood only) 25.7 % (42-52); Hemoglobin 8.2 g/dL (14.0-18.0); Immature Granulocytes # (auto) 0.01 K/uL (0.00-0.02); Immature Granulocytes % (auto) 0.2 %; Lymphocytes % (auto) 23.6 %; Mean Corpuscular Hgb Conc 31.9 g/dL (32-36); Mean Corpuscular Volume 94.1 fL (80-100); Mean Platelet Volume 9.6 fL (7.4-10.4); Monocytes # (auto) 0.52 K/uL (0.11-0.59); Monocytes % (auto) 8.2 %; Neutrophils # (auto) 3.95 K/uL (1.4-6.5); Platelet Count 245 K/uL (130-400); RDW Coefficient of Variation 17.6 % (11.5-14.5); RDW Standard Deviation 59.7 fL (36.4-46.3); Red Blood Count 2.73 M/uL (4.7-6.1); White Blood Count 6.36 K/uL (4.8-10.8)
[2019-10-03] MEDS: INSULIN ASPART 100 UNITS/ML 3 ML PEN SC SCH ×3 (07:47→14:22)
[2019-10-03] MEDS: SEVELAMER HCL 800 MG TABLET PO SCH ×2 (07:49→14:03)
[2019-10-03] MEDS: NICOTINE 14 MG/24 HR PATCH TD SCH (07:50)
[2019-10-03] MEDS ORDERED: SODIUM CHLORIDE 0.9% 1000ML 1,000 ML IV PRN (08:22)
--- NOTE | 2019-10-03 10:13 | Cardiology Progress Note ---
Date of Service October 03, 2019 Assessment & Plan (1) Chest pain: Patient's current presentation appears to be secondary to multiple factorial etiology including volume overload, hypertension and anemia. Enzymes EKGs and echocardiogram do not suggest acute coronary syndrome as etiology. He has known diffuse diabetic coronary disease and prior coronary bypass grafting. Ultimate goals will be once again medical management though diagnostic cardiac catheterization could be entertained if symptoms persist after optimization. Patient has longstanding history of ischemic heart disease as outlined who presented with exacerbation of symptoms in the setting of anemia, volume overload, marked hypertension. Patient currently stable and improved no acute coronary syndrome by enzyme or EKG. Medications being adjusted for optimization of blood pressure control. Hydralazine restarted and will increase to 25 mg 3 times per day. July 2019 dosing 50 mg twice daily We will change clonidine dosing to 0.2 mg twice daily to limit side effects but keep twice daily dosing on discharge. Continue oral nitrates and discontinue topical nitrate (2) Hypertensive urgency: As above (3) Dyslipidemia: (4) S/P CABG x 2: (5) Volume overload: Subjective Patient seen and examined, chart, medications, telemetry reviewed. No chest pain or discomfort overnight no dizziness or lightheadedness. Blood pr essure trending slightly better. No fevers chills Anticipates dialysis later today Physical Exam Eyes: PERRL, conjunctivae normal, anicteric sclerae ENMT: external ear and nose normal, oropharynx normal Neck: trachea midline, no thyromegaly Respiratory: normal respiratory effort, lungs clear to auscultation Cardiovascular: Rate/Rhythm: regular rate and regular rhythm Heart Sounds: normal S1 and normal S2; no gallop and no murmur Palpation: normal PMI Vessels: normal carotid upstroke and radial pulses present; no carotid bruit Extremities: + edema (Trace) Gastrointestinal (Abdomen): normal bowel sounds, soft, nontender, no hepato splenomegaly Musculoskeletal: no cyanosis or clubbing, extremities motor strength 5/5 Skin: no rashes, warm and dry Neurologic: PERRL, EOMI, accommodation nl, no face palsy, no dysarthria Psychiatric: A+Ox3, euthymic affect Results & Data Vital Signs (Past 12 Hours) Vital Signs Temp Pulse Pulse Resp BP BP Pulse Ox 10/03/19 10:00 80 153/86 H 10/03/19 09:40 80 168/89 H 10/03/19 09:25 37.1 C 82 82 150/87 H 10/03/19 07:54 36.9 C 81 18 182/91 H 94 10/03/19 07:15 79 10/03/19 03:54 37.0 C 80 17 172/87 H 93 10/03/19 01:36 79 10/03/19 00:20 37.2 C 77 17 169/85 H 92 (1) Chest pain Chest pain type: precordial pain Qualified Code(s): R07.2 - Precordial pain
--- NOTE | 2019-10-03 10:28 | Dialysis Progress Note ---
Date of Service October 03, 2019 Assessment & Plan (1) Hypertension: (2) Volume overload: 34-year-old with ESRD on hemodialysis admitted with CP and volume overload. BP has been high. Recent prolonged hospitalization at [facility] after cardiac arrest and has been at [facility] for last few days. Had dialysis for last 2 days with 3 liters UF with each day and volume status improved significantly. --dialysis today at his regular schedule, a for 3 liters, fluid restriction to <1L/d --continue Renvela with meals --received Epogen 31103 units yesterday. --dose medications for GFR less than 10 --okay to be discharged to [facility], will arrange for dialysis there on Tuesday Will Follow (3) Hyperkalemia: Admission and Anticipated Discharge Date Admission Date: September 30, 2019 Subjective Rupa was seen and examined during hemodialysis this morning. Overall he is feeling much better, denies shortness of breath or chest pain. Electrolyte acceptable. Tolerating dialysis with 3 liters UF, blood pressure slightly improved. Review of Systems Review of Systems: All systems reviewed & are unremarkable except as noted in HPI & below Physical Exam Constitutional: WD/WN, vitals as above + edematous; no acute distress Respiratory: normal respiratory effort; no respiratory distress Auscultation: + rales Cardiovascular: Rate/Rhythm: regular rate and regular rhythm Heart Sounds: normal S1 and normal S2 Extremities: + edema Skin: no rashes, warm and dry Neurologic: moves all extremities and awake; no focal motor deficits and not confused Psychiatric: Orientation: alert and oriented x 3 Affect: + flat affect Results & Data ([facility]) Vital Signs (Past 12 Hours) Vital Signs Temp Pulse Pulse Resp BP BP Pulse Ox 10/03/19 10:20 83 164/87 H 10/03/19 10:00 80 153/86 H 10/03/19 09:40 80 168/89 H 10/03/19 09:25 37.1 C 82 82 150/87 H 10/03/19 07:54 36.9 C 81 18 182/91 H 94 10/03/19 07:15 79 10/03/19 03:54 37.0 C 80 17 172/87 H 93 10/03/19 01:36 79 10/03/19 00:20 37.2 C 77 17 169/85 H 92 Coding Level of Care Code 92685 Subseq Hosp Care Lvl 2 Diagnoses Hypertension I10 Volume overload E87.70 Hyperkalemia E87.5
--- NOTE | 2019-10-03 11:59 | Discharge Summary ---
Date of Service October 03, 2019 Admission HPI Per Admitting Provider 34-year-old male with history of ESRD, chronic anemia, CABG, CABG, ischemic cardiomyopathy, diabetes type 1, hypertension, Other problems noted below presenting with chest pain which started late this afternoon. Patient was recently discharged from [facility] in [place] to [facility] where patient currently resides. He was admitted for PEA cardiac arrest secondary to acute respiratory failure fr om missed hemodialysis. He also suffered hypoxic/ischemic encephalopathy which has since resolved. Patient reports that this morning he had a physical therapy session which involved lifting weights targeting his chest muscles. He was feeling fine since this morning until later this afternoon around 4:30 PM when he started to have diaphoresis and was found to have low blood glucose. He was given food to eat which improved his blood glucose but subsequently developed central chest pain, pressure/crushing, radiating to his lower neck, But not associated with shortness of breath, nausea, diaphoresis. He notes that the chest pain is somewhat worsened with inspiration. He was then brought to the ER for evaluation. At the ER, patient was received a blood pressure of 162/86, heart rate of 83, respiratory 16, temperature 36.5, saturating 98% on room air. EKG did not reveal any signs of acute ischemia or infarct, initial troponin is 0.05. CT angiogram of the chest no acute PE He was given morphine 2 mg IV x3 doses with improvement of symptoms. On my exam, the patient is seen resting in bed, not in distress, speaking on the phone with his family member. He is awake, alert, oriented x3. He reports that the chest discomfort has improved from 9 now down to 5. No active shortness of breath, palpitations, dizziness, headache, nausea. He reports some reproducibility of the chest pain with movement of his right arm and with deep inspiration. No other symptoms. Primary Care Provider: Mckinley Douglas MD Admission Exam Per Admitting Provider General- oriented x 3, not in distress, speaks in sentences with no effort or accessory muscle use Positive pallor Head- atraumatic Eyes- PERRL, EOMI, anicteric ENT- oropharynx clear Neck- supple, no JVD, no adenopathy, no thyromegaly; carotids +2/2, no bruits appreciated Lungs- clear to auscultation bilaterally, no rales/wheezes Heart- normal rate, regular rhythm; no murmur, no gallop, positive mild rub appreciated Positive midsternal surgical scar Abdomen- normal bowel sounds, nondistended, soft, nontender, no masses or hepatosplenomegaly Extremities- Positive AV fistula right upper arm, positive thrill no pretibial edema, no calf tenderness; peripheral pulses intact Neuro- alert, oriented x 3; CN 2-12 grossly intact except for decreased vision bilaterally; motor 5/5 bilaterally;sensation 100% on all extremities; no other gross focal neurologic deficits Skin- warm & dry Principal Diagnosis Chest pain: Anemia HISTORY OF ISCHEMIC CARDIOMYOPATHY EF 40 TO 45% ESRD Nephrology on board HYPERTENSION DIABETES TYPE 1 HISTORY OF SEIZURE Discharge Exam Physical Exam Gen-AAO x 3, NAD, Afebrile Head-NCAT, EOMI, PERRLA, Anicteric Sclera, No Posterior Pharyngeal Erythema Neck-Supple, No JVD, No Thyromegaly, No Masses, No LAD, No Bruits Lungs-Clear to Auscultation Bilaterally, No Rales, No Rhonchi, No Wheezing, No Crepitus Chest-No S4, +S1, +S2, No S3, No Murmurs, No Rubs, No Gallops, No Ectopy Abdomen-Soft, Bowel Sounds Present, Non Tender, Non Distended, No Hepatomegaly, No Splenomegaly, No Palpable Masses, No Rebound, No Rigidity, No Guarding Musculoskeletal-Full Range of Motion Bilaterally, No CVAT Extremities-No Cyanosis, No Clubbing, No Edema Nuero-Cranial Nerves II-XII grossly intact, Motor WNL, DTRs WNL, Strength WNL, Non Focal Psych-Normal Mood Discharge Data Allergies Allergy/AdvReac Type Severity Reaction Status Date / Time No Known Allergies Allergy NKA Verified 09/30/19 19:48 Consultations 10/01/19 00:01 Consult Nephrology Routine 10/01/19 08:00 Consult Cardiology Routine Ordered Studies 09/30/19 20:42 CT abd pelvis IV con only Stat CT angio chest PE protocol Stat Current Diagnoses Hyperlipidemia, unspecified (09/30/19) Hyperkalemia (09/30/19) Fluid overload, unspecified (09/30/19) Essential (primary) hypertension (09/30/19) Hypertensive urgency (09/30/19) Precordial pain (09/30/19) Presence of aortocoronary bypass graft (09/30/19) Allergies No Known Allergies Allergy (Verified 09/30/19 19:48) NKA Height/Weight/Isolation Height 5 ft 11 in Weight 74.3 kg Chemistry 10/02/19 06:39 Sodium 134 L Potassium 4.2 D Chloride 100 Carbon Dioxide 32 Anion Gap 2.0 L BUN 35 H D Creatinine 4.84 H* D Glucose 125 H Hospital Course (1) Chest pain: Present on admission with chest pain that worsening with deep breathing Significant Cardiac history with recent cardiac arrest, non ST elevation [place] in Aug, CAD s/p CABG Troponin on admission 0.058, then 0.051--> 0.054 CXR showed poorly defined parenchymal infiltrate right base. CTA chest showed no PE. cardiomegaly with prominent pulmonary vasculature. Pleural thickening right and to a lesser extent left base with mild peribronchial infiltrative change bilaterally. EKG showed no ischemic changes Cardio on board Echo showed mild concentric left ventricular hypertrophy. Moderate hypokinesis of the apical septum. Ejection fraction 50 to 55% Continue topical nitro Continue Aspirin, Plavix, Coreg and Statin Currently denies any chest pain Anemia Patient's baseline hemoglobin is 10-11 Hgb 7.7 on admission received 1 unit PBBC Hgb 8.4 today Continue Monitor CBC HISTORY OF ISCHEMIC CARDIOMYOPATHY EF 40 TO 45% Had HD done yesterday where 4L of fluid removed Plan to get HD again today Clinically stable ESRD Nephrology on board had HD done yesterday and DC home after HD today Pt was advised to be compliance with HD Monitor electrolytes HYPERTENSION BP elevated Continue Imdur, losartan, Coreg, amlodipine Hydralazine increased to 25mg BID and topical nitro added Clonidine decreased to 0.2 mg BID to decrease the risk of side effect Continue monitor BP DIABETES TYPE 1 Pharmacy on board for glycemic management Continue Novolog sliding scale and lantus Continue monitor BS HISTORY OF SEIZURE Associated with cardiac arrest episode stable Home today and f/u c HD on normal HD day Total Time Total Time Spent Total Time Spent (In Minutes): 45 mins Total Time Includes: Examination of the Patient, Discharge Planning, Medication Reconciliation and Communication With Other Providers Discharge Plan Discharge Items Patient Disposition: Home - Self-Care Reason For Visit: CHEST PAIN Discharge Diagnosis: Chest pain: Anemia HISTORY OF ISCHEMIC CARDIOMYOPATHY EF 40 TO 45% ESRD Nephrology on board HYPERTENSION DIABETES TYPE 1 HISTORY OF SEIZURE Condition on Discharge: Good Health Concerns: Compliance c HD Activity: Resume your previous activity Bathing: No limitations Sexual Activity: When tolerated Exercise/Sports: Gradually increase as tolerated Driving/Machine Use: No limitations Weightbearing: Full weightbearing Non-emergency contact: Primary Care Provider and Review Manager Call non-emergency contact if: you have any medication questions Follow-up/Referrals: Mckinley Douglas MD [Primary Care Provider] - 10/08/19 8:20 am (10/08/2019 8:20 AM Atif Fisher MD Family [facility] NOTE: [facility] is temporarily closed due to Covid-19. Your appointment is at [address] ([place]). ) Diet: Carb Count or DM1 and Heart Healthy Fluids: 1200ml (5 cups) Addtl Attending Provider Instructions: Follow up c Nephrology and Dr Douglas Pending Studies at Discharge: No Stand-Alone Forms: My [facility], Smoking Cessation Medications and DC Order Prescriptions: Continued amlodipine 10 mg tablet 10 mg PO QAM RF: 0 carvedilol 25 mg Tablet 25 mg PO BIDM RF: 0 acetaminophen [Tylenol] 325 mg Tablet 650 mg PO Q4H PRN (Reason: Pain (Scale Score 1-3)) RF: 0 atorvastatin 20 mg Tablet 20 mg PO HS RF: 0 nicotine 14 mg/24 hr Patch 24 Hour 1 patch TRANSDERMAL DAILY RF: 0 Lantus U-100 Insulin 100 unit/mL Solution 12 unit SUBCUT HS RF: 0 heparin (porcine) 1,000 unit/mL Solution 1,000 unit IV DIRECTED PRN (Reason: DIALYSIS) RF: 0 sevelamer HCl 800 mg Tablet 1,600 mg PO TIDM RF: 0 isosorbide mononitrate 30 mg Tablet Extended Release 24 Hr 30 mg PO QAM RF: 0 sennosides-docusate sodium [Senokot-S] 8.6-50 mg Tablet 1 tab-cap PO QDL PRN (Reason: Constipation) RF: 0 clopidogrel 75 mg Tablet 75 mg PO QAM RF: 0 famotidine 20 mg Tablet 20 mg PO QAM RF: 0 bisacodyl 10 mg Suppository 10 mg FL DAILY PRN (Reason: Constipation) RF: 0 Humulin R Regular U-100 Insuln 100 unit/mL Solution 1 sliding scale dose SUBCUT TIDM RF: 0 Venofer 100 mg iron/5 mL Solution 100 mg IV WK PRN (Reason: DIALYSIS) RF: 0 docusate sodium 100 mg Capsule 100 mg PO BID RF: 0 aspirin [Aspirin Childrens] 81 mg Tablet,Chewable 81 mg PO QAM RF: 0 polyethylene glycol 3350 [Miralax] 17 gram/dose Powder 17 g PO QDL PRN (Reason: Constipation) RF: 0 sodium chloride 0.9 % Piggyback 1,000 ml IV DIRECTED PRN (Reason: DIALYSIS) RF: 0 Aranesp (in polysorbate) 200 mcg/mL Solution 200 mcg subcut .Q7DAYS RF: 0 Nephrocaps 1 cap PO QDL RF: 0 clonidine HCl 0.1 mg tablet 0.3 mg PO QAM RF: 0 losartan 100 mg tablet 100 mg PO QAM RF: 0 Discharge Orders: Discharge Order (Routine); Ordered 10/03/19 Ordered By: Jj Amaya/Other Patient Handouts: Diabetes and Heart Disease Admission Data Admit Date/Time: 09/30/19 22:29 Attending Provider: Jj Knight Admit Provider: Misael Kruger Primary Care Provider: Mckinley Douglas Other Providers: Shannan Vo ; Ronald Clayton ; Misael Kruger
[2019-10-03] MEDS: DOCUSATE SODIUM 100 MG CAP PO SCH (14:03)
[2019-10-03] MEDS: CLOPIDOGREL BISULFATE 75 MG TAB PO SCH (14:04)
[2019-10-03] MEDS: ISOSORBIDE MONO EXTENDED REL 60 MG TABCR PO SCH (14:04)
[2019-10-03] MEDS: LOSARTAN POTASSIUM 50 MG TAB PO SCH (14:05)
[2019-10-03] MEDS: FAMOTIDINE 20 MG TAB PO SCH (14:05)
[2019-10-03] MEDS: carvediloL 25 MG TAB PO SCH (14:05)
[2019-10-03] MEDS: ASPIRIN 81 MG ECTAB PO SCH (14:06)
[2019-10-03] MEDS: cloNIDine HCL 0.1 MG TAB PO SCH (14:06)
[2019-10-03] MEDS: AMLODIPINE BESYLATE 5 MG TAB PO SCH (14:06)
[2019-10-03] MEDS: NEPHROCAPS PO SCH (14:07)
--- NOTE | 2019-10-05 08:16 | Coding Query ---
CODING QUERY To promote full compliance with coding requirements relating to patient care, provider participation is requested in all cases of boomboat operator uncertainty. Please assist us with the question(s) below: Coding Question(s): Please clarify below, in your clinical opinion, regarding the most likely etiology of the Chest Pain. (x ) Chest Pain with most likely etiology of Fluid Overload-Missing Dialysis ( ) Chest Pain with most likely etiology of Hypertension ( ) Chest Pain with most likely etiology of Hypertensive Urgency ( ) Chest Pain with most likely etiology of Anemia. Please Specify type of Anemia: ( ) Chest Pain with most likely etiology of Other: Please Specify ( ) Chest Pain with most likely etiology of Unknown Physician's Response(s): Thank you Valerie Martinez Principal Diagnosis: "that condition established after study, to be chiefly responsible for occasioning the admission of the patient to the hospital for care." Co-Existing Principal Diagnosis: "when two or more diagnoses equally meet the criteria for principal diagnosis as determined by the circumstances of admission, diagnostic work up, and/or therapy provided, and the Alphabetic Index, Tabular List, or another coding guideline does not provide sequencing direction, any one of the diagnoses may be sequenced first." "When the physician has documented what appears to be a current diagnosis in the body of the record, but has not included the diagnosis in the final diagnostic statement, the physician should be asked whether the diagnosis should be added." (Source Coding [facility] 2 QTR90. p3-4) BENJAMIN
== END 2019-10-03 15:10 | disposition home health service (06) | DRG 640 ==
LOC: ED 19:28 → SUATTDRO 22:29 → 2S 22:29

== ENCOUNTER 2022-03-18 03:10 | Observation (INO) ==
[2022-03-18] MEDS ORDERED: MoRPHine SULFATE 4 MG/ML 1 ML CARP\\VIAL IV STA (03:38)
[2022-03-18 04:09] LABS: Basophils # (auto) 0.11 K/uL (0-0.2); Basophils % (auto) 1.4 %; Eosinophils # (auto) 0.29 K/uL (0-0.50); Eosinophils % (auto) 3.8 %; Hematocrit (blood only) 25.8 % (40.1-51.0); Hemoglobin 8.5 g/dl (14.0-18.0); Immature Granulocytes # (auto) 0.02 K/uL (0.00-0.02); Immature Granulocytes % (auto) 0.3 %; Lymphocytes # (auto) 0.95 K/uL (1.2-3.4); Lymphocytes % (auto) 12.5 %; Mean Corpuscular Hemoglobin 31.1 pg (25.0-34.0); Mean Corpuscular Hgb Conc 32.9 g/dL (32.0-36.0); Mean Corpuscular Volume 94.5 fL (80.0-100.0); Mean Platelet Volume 10.9 fL (9.4-12.4); Monocytes # (auto) 0.56 K/uL (0.24-0.82); Monocytes % (auto) 7.4 %; Neutrophils # (auto) 5.67 K/uL (1.4-6.5); Neutrophils % (auto) 74.6 %; Platelet Count 209 K/uL (130-400); RDW Coefficient of Variation 13.4 % (11.5-14.5); RDW Standard Deviation 45.7 fL (36.4-46.3); Red Blood Count 2.73 M/uL (4.63-6.08)
[2022-03-18 04:45] LABS: Albumin Globulin Ratio 1.4 (0.9-2); Albumin Level 3.8 gm/dl (3.4-5.0); Bilirubin,Total 0.4 mg/dl (0.2-1.0); Creatinine Clr Calc Pharmacy 8.3 ml/min; Est GFR (African American) 6.6 ml/min; Est GFR (Non-African American) 5.7 ml/min; Globulin 2.8 gm/dl (2.5-4.0); Potassium 3.9 mmol/L (3.5-5.1); Total Protein 6.6 gm/dl (6.0-8.3); Troponin I High Sensitivity 57.2 pg/ml (0-20)
--- NOTE | 2022-03-18 05:49 | Emergency Department Note ---
History of Present Illness General Chief complaint: Back Injury/Pain Stated complaint: SEVERE BACK PAIN Time Seen by Provider: 03/18/22 03:32 History of Present Illness Maximum Pain Intensity: 5 This is a 36-year-old male presenting to the emergency department for evaluation of back pain symptoms for the past 2 days. The patient states the pain sometimes worsens with movement and is in the mid of his back. He does not have any radiation of pain and does not have any recent fevers or chills. He did take Tylenol without relief of symptoms. The patient has a concerning past medical history including uncontrolled type 1 diabetes, chronic kidney disease on dialysis, CABG, and cardiac arrest. The patient is a Tuesday dialysis patient, but did not go to dialysis yesterday because of his pain. The patient does not report nausea or vomiting. He is unable to make urine. Home Medications Medication Instructions Recorded Confirmed Type losartan 100 mg tablet 100 mg PO QAM 11/08/18 09/30/19 History Nephrocaps 1 cap PO QDL 09/30/19 09/30/19 History acetaminophen 325 mg tablet 650 mg PO Q4H PRN Pain (Scale 09/30/19 09/30/19 History (Tylenol) Score 1-3) aspirin 81 mg chewable tablet 81 mg PO QAM 09/30/19 09/30/19 History (Aspirin Childrens) atorvastatin 20 mg tablet 20 mg PO HS 09/30/19 09/30/19 History bisacodyl 10 mg rectal suppository 10 mg [place] DAILY PRN Constipation 09/30/19 09/30/19 History carvedilol 25 mg tablet 25 mg PO BIDM 09/30/19 09/30/19 History clopidogrel 75 mg tablet 75 mg PO QAM 09/30/19 09/30/19 History darbepoetin kelly in polysorbat 200 200 mcg subcut .Q7DAYS 09/30/19 09/30/19 History mcg/mL in polysorbate injection (Aranesp) docusate sodium 100 mg capsule 100 mg PO BID 09/30/19 09/30/19 History famotidine 20 mg tablet 20 mg PO QAM 09/30/19 09/30/19 History heparin (porcine) 1,000 unit/mL 1,000 unit IV DIRECTED PRN 09/30/19 09/30/19 History injection solution DIALYSIS insulin glargine 100 unit/mL 12 unit subcut HS 09/30/19 09/30/19 History subcutaneous solution (Lantus U-100 Insulin) insulin regular human 100 unit/mL 1 sliding scale dose subcut TIDM 09/30/19 09/30/19 History injection solution (Humulin R Regular U-100 Insulin) iron sucrose 100 mg iron/5 mL 100 mg IV WK PRN DIALYSIS 09/30/19 09/30/19 History intravenous solution (Venofer) isosorbide mononitrate 30 mg 30 mg PO QAM 09/30/19 09/30/19 History tablet,extended release 24 hr nicotine 14 mg/24 hr daily 1 patch transdermal DAILY 09/30/19 09/30/19 History transdermal patch polyethylene glycol 3350 17 17 g PO QDL PRN Constipation 09/30/19 09/30/19 History gram/dose oral powder (Miralax) sennosides 8.6 mg-docusate sodium 1 tab-cap PO QDL PRN Constipation 09/30/19 09/30/19 History 50 mg tablet (Senokot-S) sevelamer HCl 800 mg tablet 1,600 mg PO TIDM 09/30/19 09/30/19 History sodium chloride 0.9 % 1,000 ml IV DIRECTED PRN 09/30/19 09/30/19 History DIALYSIS amlodipine 10 mg tablet See Rx Instructions .Route 08/27/21 Rx .COMPLEX #90 tabs clonidine HCl 0.2 mg tablet See Rx Instructions .Route 08/27/21 Rx .COMPLEX #180 tabs Allergies Allergy/AdvReac Type Severity Reaction Status Date / Time No Known Allergies Allergy NKA Verified 09/30/19 19:48 Past Med/Surg History Medical History (Updated 03/18/22 @ 07:48 by Jeovany Ivan PA-C) CAD (coronary artery disease) Diabetic nephropathy Diabetic retinopathy Diastolic dysfunction Dyslipidemia Dyslipidemia ESRD on dialysis ESRD on hemodialysis TUESDAY/TUE/TUESDAY ([place]) Hypertension Ischemic cardiomyopathy Initial EF 20%, echo 01/2019 EF 50 to 54% Macular degeneration Type I diabetes mellitus Surgical History History of tooth extraction S/P CABG x 2 Family History Mother Family history of diabetes mellitus Kidney disease Father Family history of diabetes mellitus Kidney disease Social History Smoking Status: Current every day smoker Tobacco Type: Cigarettes Cigarettes Per Day: 30; Second Hand Exposure: No; Hx Alcohol Use: No Hx Substance Use: No Preferred Language: Belgian Communication Ability: Effective Transitional Care Nurse Required: No Beliefs That Will Affect Care: None marital status: Single Current Living Situation: Family Feels Safe at Home: Yes Assistive Devices: Glasses Review of Systems A total of 10 systems reviewed and were otherwise negative Physical Exam Vital Signs Vital Signs - 24 hr 03/18/22 03:13 03/18/22 03:39 03/18/22 03:55 Temperature 36.0 C L Temperature Source Temporal Artery Scan Pulse Rate 71 66 Pulse Rate [Apical] 69 Pulse Rate from SpO2 Sensor 66 Pulse Rhythm [Apical] Regular Pulse Strength [Apical] Normal Respiratory Rate 16 14 13 Respiratory Effort / Characteristics Non-Labored Spontaneous Non-Labored Respiratory Depth Normal Normal Respiratory Pattern Regular Blood Pressure 165/70 H Blood Pressure [Left Arm] 162/93 H Blood Pressure Mean 101 Blood Pressure Mean [Left Arm] 116 Pulse Oximetry 98 97 96 Oxygen Delivery Method Room Air Room Air Oxygen Flow Rate Sepsis Recent Fever Within 48 Hours No Sepsis New/Unexplained Change in Mental Status No Sepsis Action Taken by Nursing No Action Required 03/18/22 04:00 03/18/22 04:00 03/18/22 04:10 Temperature Temperature Source Pulse Rate 67 67 Pulse Rate [Apical] Pulse Rate from SpO2 Sensor 67 67 Pulse Rhythm [Apical] Pulse Strength [Apical] Respiratory Rate 12 18 Respiratory Effort / Characteristics Respiratory Depth Respiratory Pattern Blood Pressure 162/89 H Blood Pressure [Left Arm] Blood Pressure Mean 113 Blood Pressure Mean [Left Arm] Pulse Oximetry 96 95 Oxygen Delivery Method Oxygen Flow Rate Sepsis Recent Fever Within 48 Hours Sepsis New/Unexplained Change in Mental Status Sepsis Action Taken by Nursing 03/18/22 04:20 03/18/22 04:47 03/18/22 04:50 Temperature Temperature Source Pulse Rate 65 68 66 Pulse Rate [Apical] Pulse Rate from SpO2 Sensor 65 68 66 Pulse Rhythm [Apical] Pulse Strength [Apical] Respiratory Rate 13 13 19 Respiratory Effort / Characteristics Respiratory Depth Respiratory Pattern Blood Pressure Blood Pressure [Left Arm] Blood Pressure Mean Blood Pressure Mean [Left Arm] Pulse Oximetry 93 94 92 Oxygen Delivery Method Oxygen Flow Rate Sepsis Recent Fever Within 48 Hours Sepsis New/Unexplained Change in Mental Status Sepsis Action Taken by Nursing 03/18/22 05:00 03/18/22 05:00 03/18/22 05:10 Temperature Temperature Source Pulse Rate 65 65 Pulse Rate [Apical] Pulse Rate from SpO2 Sensor 65 64 Pulse Rhythm [Apical] Pulse Strength [Apical] Respiratory Rate 12 Respiratory Effort / Characteristics Respiratory Depth Respiratory Pattern Blood Pressure 166/92 H Blood Pressure [Left Arm] Blood Pressure Mean 116 Blood Pressure Mean [Left Arm] Pulse Oximetry 94 89 L Oxygen Delivery Method Room Air Oxygen Flow Rate Sepsis Recent Fever Within 48 Hours Sepsis New/Unexplained Change in Mental Status Sepsis Action Taken by Nursing 03/18/22 05:20 03/18/22 05:30 03/18/22 05:30 Temperature Temperature Source Pulse Rate 63 67 Pulse Rate [Apical] Pulse Rate from SpO2 Sensor 64 68 Pulse Rhythm [Apical] Pulse Strength [Apical] Respiratory Rate Respiratory Effort / Characteristics Respiratory Depth Respiratory Pattern Blood Pressure 163/109 H Blood Pressure [Left Arm] Blood Pressure Mean 127 Blood Pressure Mean [Left Arm] Pulse Oximetry 84 L 85 L Oxygen Delivery Method Room Air Room Air Oxygen Flow Rate Sepsis Recent Fever Within 48 Hours Sepsis New/Unexplained Change in Mental Status Sepsis Action Taken by Nursing 03/18/22 05:40 03/18/22 05:50 03/18/22 06:00 Temperature Temperature Source Pulse Rate 68 67 Pulse Rate [Apical] Pulse Rate from SpO2 Sensor 68 67 Pulse Rhythm [Apical] Pulse Strength [Apical] Respiratory Rate 11 L 15 Respiratory Effort / Characteristics Respiratory Depth Respiratory Pattern Blood Pressure 156/93 H Blood Pressure [Left Arm] Blood Pressure Mean 114 Blood Pressure Mean [Left Arm] Pulse Oximetry 93 88 L Oxygen Delivery Method Nasal Cannula Oxygen Flow Rate 2 Sepsis Recent Fever Within 48 Hours Sepsis New/Unexplained Change in Mental Status Sepsis Action Taken by Nursing 03/18/22 06:00 03/18/22 06:10 03/18/22 06:20 Temperature Temperature Source Pulse Rate 74 79 75 Pulse Rate [Apical] Pulse Rate from SpO2 Sensor 74 79 75 Pulse Rhythm [Apical] Pulse Strength [Apical] Respiratory Rate 13 24 18 Respiratory Effort / Characteristics Respiratory Depth Respiratory Pattern Blood Pressure Blood Pressure [Left Arm] Blood Pressure Mean Blood Pressure Mean [Left Arm] Pulse Oximetry 89 L 82 L 89 L Oxygen Delivery Method Room Air Room Air Room Air Oxygen Flow Rate Sepsis Recent Fever Within 48 Hours Sepsis New/Unexplained Change in Mental Status Sepsis Action Taken by Nursing 03/18/22 06:30 03/18/22 06:30 Temperature Temperature Source Pulse Rate 72 Pulse Rate [Apical] Pulse Rate from SpO2 Sensor 72 Pulse Rhythm [Apical] Pulse Strength [Apical] Respiratory Rate Respiratory Effort / Characteristics Respiratory Depth Respiratory Pattern Blood Pressure 177/93 H Blood Pressure [Left Arm] Blood Pressure Mean 121 Blood Pressure Mean [Left Arm] Pulse Oximetry 92 Oxygen Delivery Method Nasal Cannula Oxygen Flow Rate 2 Sepsis Recent Fever Within 48 Hours Sepsis New/Unexplained Change in Mental Status Sepsis Action Taken by Nursing VITALS: Vitals are noted on the nurse's note and reviewed by myself. Vital signs stable. GENERAL: Chronically ill-appearing pale white male who is comfortable and cooperative. HEAD: Normocephalic atraumatic. HEART: Regular rate and rhythm without murmurs gallops or rubs. LUNGS: Clear to auscultation bilaterally without wheezes, rales or rhonchi. No retractions or accessory muscle use. ABDOMEN: Positive normal bowel sounds x 4. Soft, nontender, without masses or organomegaly. No guarding or rebound tenderness. BACK: Minimal tenderness throughout the lower thoracic and upper lumbar spines. No lower tenderness. No rash. MUSCULOSKELETAL: No muscle atrophy, erythema, or edema noted. Full range of motion in all extremities. NEURO: Patient was alert and oriented to person place and time. CN II through XII grossly intact. Course Administered Medications Discontinued Medications Morphine Sulfate (Morphine Sulfate 4 Mg/Ml 1 Ml Carp\Vial) 4 mg IV NOW STA Stop: 03/18/22 03:39 Last Admin: 03/18/22 03:56 Dose: 4 mg Documented By: REBECCA Medical Decision Making Differential Diagnosis Differential diagnosis includes, but is not limited to: Myocardial infarction, dysrhythmia, pericarditis, pneumothorax, aortic aneurysm/dissection, DVT/PE, anxiety, GERD, PUD, electrolyte imbalance, thyroid disorder, pneumonia, bronchitis, pancreatitis, and others Laboratory Data Result diagrams: 03/18/22 Unknown 03/18/22 Unknown Lab Results 03/18/22 03/18/22 Range/Units 05:45 05:46 Troponin I High Sens 56.9 H* (0-20) pg/ml SARS-CoV-2, RNA, NAAT NEGATIVE (NEGATIVE) Imaging Data Radiologist's Impression: Chest X-Ray 03/18/22 05:38 XR chest 1V portable HISTORY: 36 years-old Male hypoxia acute hypoxia COMPARISON: Chest radiograph 09/30/2019 TECHNIQUE: Portable AP view the chest FINDINGS: Cardiac silhouette is enlarged. Prior median sternotomy. No pneumothorax. Small pleural effusions. Pulmonary vascular congestion with interstitial coarsening. Right midlung linear opacities suggestive of fluid within the fissure. Eventration of the right hemidiaphragm. Mild bibasilar densities. Bones appear grossly intact. Left shoulder rotator cuff calcific tendinosis. IMPRESSION: 1. Cardiomegaly with interstitial pulmonary edema. 2. Small pleural effusions with mild bibasilar opacities favoring atelectasis. ACT 112: Negative or not required by law. The above report was generated using voice recognition software. It may contain grammatical, syntax or spelling errors. Electronically signed by: Anand Hou M.D. 03/18/2022 7:21 AM ECG Data Attestation: I personally reviewed and interpreted this ECG as follows: Indication: + other (Atypical back pain, elevated troponin) Additional Comments: Normal sinus rhythm rate 65 bpm Rightward axis When compared to EKG 10/01/2019, questionable ST elevation in V2 but not elsewhere MDM Narrative Physical exam and history were performed. Nursing notes, EMR, and Medication List were personally reviewed. Patient appears to have atypical back pain bringing him to the ER. The patient has an extensive medical history including type 1 diabetes, end-stage renal disease on dialysis, and CABG. IV access was established and labs were obtained. EKG was performed. Plain films of the thoracic and lumbar spine were also gathered. An order was placed for continuous cardiac monitoring. The monitor shows a rate of 68 with normal sinus rhythm. Patient's blood work is as above and was reviewed. He does not have a significantly elevated white blood cell count or gross anemia. Sugar is over 400. BUN is 51 and creatinine is 10. Patient's high-sensitivity troponin is also 57. Thoracolumbar x-rays were unremarkable. Case was discussed with my attending, Dr. Arthur who also evaluated the patient at bedside. The patient is having episodic hypoxia, where he is dropping into 85 to 87% on room air. The patient was placed on oxygen. COVID swab was performed and negative. We did perform a repeat troponin which is 56.9. Overall the patient does not appear well for discharge home. On further history he did skip dialysis yesterday. He did have an episode in 2019 where he skipped dialysis, coded, and had a 2-minute episode in [facility]. The patient case was discussed with the [facility] hospitalist who agreed to evaluate him here in the ER. Please see their dictation for further patient course, plan, and disposition. The chart was completed utilizing [employer] Speech Voice Recognition Software. Grammatical errors, random word insertions, pronoun errors, and incomplete s entences are an occasional consequence of this system due to software limitations, ambient noise, and hardware issues. Any formal questions or concerns about the content, text, or information contained within the body of this dictation should be directly addressed to the provider for clarification. . Impression & Plan Atypical back pain, Hypoxia, Elevated troponin Discharge Plan Visit Data Chief Complaint: Back Injury/Pain Stated Complaint: SEVERE BACK PAIN ED Provider: Yeyo Gipson ED Midlevel Provider: Jeovany Ivan Discharge Problem: Atypical back pain, Hypoxia, Elevated troponin Patient Disposition: Admitted As Inpatient Discharge Instructions Interventions: ED Discharge Assessment Last Done: 03/18/22 06:43
[2022-03-18] MEDS ORDERED: HYDROmorphone INJ 0.5 MG/0.5 ML SYR IV PRN (06:51)
[2022-03-18] MEDS ORDERED: NITROGLYCERIN SL 0.4 MG/TAB TAB SL PRN (06:51)
[2022-03-18] MEDS ORDERED: bisacodyL 10 MG SUPP PR PRN (06:51)
[2022-03-18] MEDS ORDERED: POLYETHYLENE (MIRALAX) 17 GM PACK PO PRN (06:51)
[2022-03-18] MEDS ORDERED: ACETAMINOPHEN 325 MG TAB PO PRN (06:51)
[2022-03-18] MEDS ORDERED: INSULIN HUMAN REGULAR PER UNIT 4 UNITS in SYRINGE 3.96 ML IV ONE (07:00)
--- NOTE | 2022-03-18 07:22 | XRay Report ---
XR chest 1V portable HISTORY: 36 years-old Male hypoxia acute hypoxia COMPARISON: Chest radiograph 09/30/2019 TECHNIQUE: Portable AP view the chest FINDINGS: Cardiac silhouette is enlarged. Prior median sternotomy. No pneumothorax. Small pleural effusions. Pu lmonary vascular congestion with interstitial coarsening. Right midlung linear opacities suggestive o f fluid within the fissure. Eventration of the right hemidiaphragm. Mild bibasilar densities. Bones a ppear grossly intact. Left shoulder rotator cuff calcific tendinosis. IMPRESSION: 1. Cardiomegaly with interstitial pulmonary edema. 2. Small pleural effusions with mild bibasilar opacities favoring atelectasis. ACT 112: Negative or not required by law. The above report was generated using voice recognition software. It may contain grammatical, syntax o r spelling errors. Electronically signed by: Anand Hou M.D. 03/18/2022 7:21 AM
[2022-03-18] MEDS ORDERED: GLUCOSE 40% GEL 15 GM TUBE PO PRN (07:45)
[2022-03-18] MEDS ORDERED: GLUCAGON FOR INJ 1 MG VIAL IM PRN (07:45)
[2022-03-18] MEDS ORDERED: DEXTROSE 50% 50 ML SYRINGE IV PRN (07:45)
[2022-03-18] MEDS ORDERED: CARBOHYDRATES FOR HYPOGLYCEMIA PO PRN (07:45)
[2022-03-18] MEDS ORDERED: GLUCOSE 10 TAB/TUBE PO PRN (07:45)
[2022-03-18 08:09] LABS: Estimated Average Glucose 214 mg/dl; Hemoglobin A1C 9.1 % (4.5-5.6)
[2022-03-18] MEDS ORDERED: CLOPIDOGREL BISULFATE 75 MG TAB PO SCH (09:00)
[2022-03-18] MEDS: amLODIPine BESYLATE 5 MG TAB PO SCH (09:01)
[2022-03-18] MEDS: cloNIDine HCL 0.1 MG TAB PO SCH ×2 (09:01→20:03)
--- NOTE | 2022-03-18 09:01 | Nephrology Consultation ---
Date of Consultation March 18, 2022 Assessment & Plan (1) ESRD on dialysis: * Clinically volume overloaded w/ HTN and pulmonary rales * Will provide HD today - HD RN notified * Outpatient HD: [facility] 3.5 hr 2K 2Ca F-180NR Qb 400 EDW 70 kg * PRP in am (2) Atypical back pain: * Clinically suspect musculoskeletal discomfort * no rash, t-spine and LS spine x-rays negative for fracture, LFT - wnl, await lipase * Recommend abdominal CT to image kidneys and aorta (3) Ischemic cardiomyopathy: * s/p CABG x2 History of Present Illness Reason for Consultation: ESKD on IHD Attending Physician: Trevon Ramos MD History of Present Illness Mr. Rebolledo is a 36 year old white male who is seen & examined in the ICU at the request of the [facility] to provide inpatient HD and assist w/ medical management. Medical records in the EMR were reviewed today and are summarized as follows: Mr. Rebolledo has ESKD due to DKD. He has been on IHD since 11/15 under the care of Dr. Khan ([facility] 3.5 hr 2K 2Ca F-180NR Qb 400 EDW 70 kg). He reports the gradual onset of low back pain over the last 2 days. There has been no fever, abdominal pain, nausea/vomiting/diarrhea or rash. He denies any radiation of his back discomfort. He is anuric and denies any urinary symptoms. Mr. Rebolledo discomfort did not respond to acetaminophen therapy. He missed HD 03/17/22 and presented to the EMD this am for evaluation. Thoracic spine and LS spine x-rays were negative for fracture or subluxation, CXR revealed CMG w/ pulmonary edema and small bilateral pleural effusions PMH: HTN, DM, nephrotic syndrome, anemia, vitamin D deficiency, sHPT, continued tobacco use Allergies Allergy/AdvReac Type Severity Reaction Status Date / Time No Known Allergies Allergy NKA Verified 09/30/19 19:48 Home Medications Medication Instructions Recorded Confirmed Type losartan 100 mg tablet 100 mg PO QAM 11/08/18 09/30/19 History Nephrocaps 1 cap PO QDL 09/30/19 09/30/19 History acetaminophen 325 mg tablet 650 mg PO Q4H PRN Pain (Scale 09/30/19 09/30/19 History (Tylenol) Score 1-3) aspirin 81 mg chewable tablet 81 mg PO QAM 09/30/19 09/30/19 History (Aspirin Childrens) atorvastatin 20 mg tablet 20 mg PO HS 09/30/19 09/30/19 History bisacodyl 10 mg rectal suppository 10 mg [place] DAILY PRN Constipation 09/30/19 09/30/19 History carvedilol 25 mg tablet 25 mg PO BIDM 09/30/19 09/30/19 History clopidogrel 75 mg tablet 75 mg PO QAM 09/30/19 09/30/19 History darbepoetin kelly in polysorbat 200 200 mcg subcut .Q7DAYS 09/30/19 09/30/19 History mcg/mL in polysorbate injection (Aranesp) docusate sodium 100 mg capsule 100 mg PO BID 09/30/19 09/30/19 History famotidine 20 mg tablet 20 mg PO QAM 09/30/19 09/30/19 History heparin (porcine) 1,000 unit/mL 1,000 unit IV DIRECTED PRN 09/30/19 09/30/19 History injection solution DIALYSIS insulin glargine 100 unit/mL 12 unit subcut HS 09/30/19 09/30/19 History subcutaneous solution (Lantus U-100 Insulin) insulin regular human 100 unit/mL 1 sliding scale dose subcut TIDM 09/30/19 09/30/19 History injection solution (Humulin R Regular U-100 Insulin) iron sucrose 100 mg iron/5 mL 100 mg IV WK PRN DIALYSIS 09/30/19 09/30/19 History intravenous solution (Venofer) isosorbide mononitrate 30 mg 30 mg PO QAM 09/30/19 09/30/19 History tablet,extended release 24 hr nicotine 14 mg/24 hr daily 1 patch transdermal DAILY 09/30/19 09/30/19 History transdermal patch polyethylene glycol 3350 17 17 g PO QDL PRN Constipation 09/30/19 09/30/19 History gram/dose oral powder (Miralax) sennosides 8.6 mg-docusate sodium 1 tab-cap PO QDL PRN Constipation 09/30/19 09/30/19 History 50 mg tablet (Senokot-S) sevelamer HCl 800 mg tablet 1,600 mg PO TIDM 09/30/19 09/30/19 History sodium chloride 0.9 % 1,000 ml IV DIRECTED PRN 09/30/19 09/30/19 History DIALYSIS amlodipine 10 mg tablet See Rx Instructions .Route 08/27/21 Rx .COMPLEX #90 tabs clonidine HCl 0.2 mg tablet See Rx Instructions .Route 08/27/21 Rx .COMPLEX #180 tabs Patient History Medical History CAD (coronary artery disease) Diabetic nephropathy Diabetic retinopathy Diastolic dysfunction Dyslipidemia Dyslipidemia ESRD on dialysis ESRD on hemodialysis TUESDAY/TUE/TUESDAY ([place]) Hypertension Ischemic cardiomyopathy Initial EF 20%, echo 01/2019 EF 50 to 54% Macular degeneration Type I diabetes mellitus Surgical History History of tooth extraction S/P CABG x 2 Family History Mother Family history of diabetes mellitus Kidney disease Father Family history of diabetes mellitus Kidney disease Social History Smoking Status: Current every day smoker Tobacco Type: Cigarettes Cigarettes Per Day: 30; Second Hand Exposure: No; Hx Alcohol Use: No Hx Substance Use: No Preferred Language: Czech Communication Ability: Effective Web Content Editor Required: No Beliefs That Will Affect Care: None marital status: Single Current Living Situation: Family Feels Safe at Home: Yes Assistive Devices: Glasses Review of Systems Constitutional: no fever Eyes: no problem reported Ear, Nose, Mouth, Throat: no problem reported Respiratory: no cough and no dyspnea Cardiovascular: no chest pain Gastrointestinal: no abdominal pain Musculoskeletal: + back pain Physical Exam Constitutional: not in distress Eyes: PERRL, conjunctivae normal, anicteric sclerae ENMT: external ear and nose normal, oropharynx normal Neck: trachea midline, no thyromegaly Respiratory: Auscultation: + rales Cardiovascular: Rate/Rhythm: regular rate and regular rhythm Extremities: + AV fistula (+ bruit) Gastrointestinal (Abdomen): normal bowel sounds, soft, nontender, no hepatosplenomegaly Musculoskeletal: mild bilateral CVA tenderness Skin: no rash Neurologic: awake; not confused Results & Data ([place]) Vital Signs (Past 12 Hours) Vital Signs Temp Pulse Pulse Resp BP BP Pulse Ox 03/18/22 08:13 36.5 C 67 16 165/88 H 95 03/18/22 06:40 68 93 03/18/22 06:30 72 92 03/18/22 06:30 177/93 H 03/18/22 06:20 75 18 89 L 03/18/22 06:10 79 24 82 L 03/18/22 06:00 74 13 89 L 03/18/22 06:00 156/93 H 03/18/22 05:50 67 15 88 L 03/18/22 05:40 68 11 L 93 03/18/22 05:30 67 85 L 03/18/22 05:30 163/109 H 03/18/22 05:20 63 84 L 03/18/22 05:10 65 89 L 03/18/22 05:00 65 12 94 03/18/22 05:00 166/92 H 03/18/22 04:50 66 19 92 03/18/22 04:47 68 13 94 03/18/22 04:20 65 13 93 03/18/22 04:10 67 18 95 03/18/22 04:00 67 12 96 03/18/22 04:00 162/89 H 03/18/22 03:55 66 13 96 03/18/22 03:39 69 14 162/93 H 97 03/18/22 03:13 36.0 C L 71 16 165/70 H 98 O2 Del Method O2 Flow Rate 03/18/22 08:13 Nasal Cannula 2 03/18/22 06:40 03/18/22 06:30 Nasal Cannula 2 03/18/22 06:30 03/18/22 06:20 Room Air 03/18/22 06:10 Room Air 03/18/22 06:00 Room Air 03/18/22 06:00 03/18/22 05:50 03/18/22 05:40 Nasal Cannula 2 03/18/22 05:30 Room Air 03/18/22 05:30 03/18/22 05:20 Room Air 03/18/22 05:10 Room Air 03/18/22 05:00 03/18/22 05:00 03/18/22 04:50 03/18/22 04:47 03/18/22 04:20 03/18/22 04:10 03/18/22 04:00 03/18/22 04:00 03/18/22 03:55 03/18/22 03:39 Room Air 03/18/22 03:13 Room Air Laboratory Results Laboratory Tests 03/18/22 03/18/22 03/18/22 05:46 Unknown Unknown WBC 7.60 Hgb 8.5 L Hct 25.8 L Plt Count 209 Sodium 136 Potassium 3.9 Chloride 93 L Carbon Dioxide 28 BUN 51 H Creatinine 10.30 H* Glucose 419 H* Hemoglobin A1c Calcium 9.0 AST 7 L ALT 9 Troponin I High Sens 56.9 H* 57.2 H* Albumin 3.8 03/18/22 Unknown WBC Hgb Hct Plt Count Sodium Potassium Chloride Carbon Dioxide BUN Creatinine Glucose Hemoglobin A1c 9.1 H Calcium AST ALT Troponin I High Sens Albumin PG Care Time/CCT Total # of Minutes Spent Total Time Spent with Patient: Total time spent is greater than 50% in coordination of care (as documented) at patient's floor/unit and/or counseling patient: Coding Level of Care Code 25897 Inpt Consult Level 5 Diagnoses ESRD on dialysis N18.6; Z99.2 Atypical back pain M54.9 Ischemic cardiomyopathy I25.5
[2022-03-18] MEDS: DOCUSATE SODIUM 100 MG CAP PO SCH ×2 (09:02→20:03)
[2022-03-18] MEDS: ASPIRIN 81 MG ECTAB PO SCH (09:02)
[2022-03-18] MEDS: FAMOTIDINE 20 MG TAB PO SCH (09:02)
[2022-03-18] MEDS: INSULIN ASPART PER UNIT SC SCH ×4 (09:04→20:11)
--- NOTE | 2022-03-18 10:16 | History and Physical Report ---
DATE OF ADMISSION: 03/18/2022. CHIEF COMPLAINT: Back pain, having hypoxia in the ER. HISTORY OF PRESENT ILLNESS: This is a 36-year-old male with past medical history significant for type 1 diabetes, diabetic retinopathy, secondary hyperparathyroidisms, end-stage renal disease on hemodialysis, restrictive lung disease, hypertension, status post CABG, history of toxoplasmosis, history of ischemic cardiomyopathy, initial EF was 20% and in 09/2019 EF was 50-55%, presents with back pain. In the ER, he received dose of morphine.He was hypoxic at 87%, requiring oxygen. The patient says he is having back pain since last Tuesday at home, 7/10 severity. He could not sleep well so he missed the dialysis yesterday and is not getting better, so he came to the ER. Denies any incontinence of the stools. The patient does not make urine. Somewhat constipated. Denies any fever or chills. No chest pain, no abdominal pain, no nausea, no vomiting. In the ER, he is feeling shortness of breath, and he has had cough since he came to the ER, bringing some whitish phlegm and has some runny nose. No headache, no neck pain. Vision is okay. No earache, no sore throat. Appetite is okay. Patient is ambulating okay. Currently, hemodynamically stable. Patient has also history of PEA, cardiac arrest secondary to respiratory failure after missing dialysis in the past. He also suffered hypoxic ischemic encephalopathy, which has been resolved. ALLERGIES: RASH FROM THE PLAVIX. PAST MEDICAL HISTORY: As mentioned above. PAST SURGICAL HISTORY: AV access, injection of the eye drug, dental surgery, CABG, insertion of dialysis catheter, laser surgery of inner eye strands. MEDICATIONS: As per [facility], the patient is on atorvastatin 20 mg p.o. daily, Coreg 25 mg p.o. b.i.d., Imdur 30 mg p.o. daily, Lantus 12 units subcutaneous at bedtime, insulin lispro sliding scale, calcium acetate phosphate binder 667 mg 2 capsules with meals and snacks, clonidine 0.2 mg p.o. b.i.d., amlodipine 10 mg p.o. daily, vitamins 1 capsule daily, aspirin 81 mg p.o. daily. FAMILY HISTORY: Significant for paternal grandmother had stomach cancer, father had diabetes, heart disorder, renal history. Mother has diabetes, hypertension. SOCIAL HISTORY: Single, smokes 1 pack a day for 20 years. No alcohol use. No drug use as per records. REVIEW OF SYSTEMS: As per HPI. Rest of review of systems is negative. PHYSICAL EXAMINATION: GENERAL: The patient is of moderate build, not in acute distress. VITAL SIGNS: Temperature 36, pulse 74, respiratory rate 18, blood pressure 156/90, oxygen 99% on room air, 3 liters in mid 90s. HEENT: Pupils equal, round and reactive to light. Oral mucosa moist. NECK: No JVD, no neck masses. CARDIOVASCULAR: S1 and S2 heard. Regular rate and rhythm. No murmur, no gallop. RESPIRATORY SYSTEM: Normal AP diameter. No accessory muscle use. No wheezing. Bibasilar crackles heard. ABDOMEN: Soft, bowel sounds present, nontender, no distention. CENTRAL NERVOUS SYSTEM: Cranial nerves II-XII grossly intact, nonfocal. EXTREMITIES: No edema, no erythema. LABORATORY DATA: WBC 7, hemoglobin 8.5, hematocrit 25.8, platelets 209. Sodium 136, potassium 3.9, chloride 93, bicarbonate 28, BUN 51, creatinine 10.3, serum glucose 419, calcium 9, total bilirubin 0.4, AST 7, ALT 9, alkaline phosphatase 74. Troponin-I high sensitivity 7.2. SARS-CoV-2 rapid test negative. IMAGING DATA: Chest x-ray, no obvious acute findings . ASSESSMENT AND PLAN: This is a 36-year-old male who presents with back pain and also found to be hypoxic in the ER. 1. Back pain. Pain control, . We will follow the lumbar spine x-ray. PT, OT when stable. Monitor in the hospital. 2. Hypoxia. The patient missed dialysis yesterday. The patient has history of respiratory failure with PEA cardiac arrest in the past after missing dilaysis. We will follow the official report of chest x-ray. We will consult Nephrology for dialysis today. 3. The patient has a history of ischemic cardiomyopathy, EF of 20% in 2016, but in 09/2019 EF was 50-55%.. Possible [id number] systolic congestive heart failure. On Dialysis.We will get an echocardiogram. Monitor in the [facility] tele. 4. History of end-stage renal disease, on hemodialysis Tuesday, Tuesday, Tuesday, missed dialysis yesterday because of the back pain. We will consult Nephrology, possible dialysis today. 5. History of coronary artery disease, status post coronary artery bypass grafting. Continue his Coreg, imdur,aspirin, statin. 6. History of hyperlipidemia, on statin. 7. History of hypertension on amlodipine, Coreg, Imdur, clonidine. We will monitor the blood pressure. 8. Diabetes, on Lantus . Insulin sliding scale . We will monitor. If not getting under control, will consult glycemic pharmacy. 9. Anemia of chronic kidney disease. Hemoglobin is 8.5. Monitor. 10.Mild elevation in troponin could be demand ischemia. We will follow serial cardiac enzymes and echocardiogram. 11. Deep venous thrombosis prophylaxis: Sequential compression devices for now. DISPOSITION: Closely monitor in the med tele. PT/OT prior to discharge. Social service to help with discharge planning. Job ID: [id number] BENJAMIN
[2022-03-18] MEDS ORDERED: SODIUM CHLORIDE 0.9% 1000ML 1,000 ML IV PRN (10:23)
[2022-03-18] MEDS ORDERED: HEPARIN SOD (PORCINE) 1000 UNIT/ML IV ONE (10:23)
--- NOTE | 2022-03-18 10:25 | XRay Report ---
XR thoracic spine 3V routine, XR lumbar spine min 4V routine HISTORY: 36 years-old Male low thoracic pain acute pain of the mid to low back without reported trau ma COMPARISON: CTA chest and CT abdomen studies 09/30/2019 TECHNIQUE: 3 views of the thoracic spine with 5 views of the lumbar spine FINDINGS: THORACIC: Cardiomegaly with prior median sternotomy. Right midlung opacity may represent atelectasis. Mild mult ilevel intervertebral disc space narrowing with spondylitic spurring and facet arthrosis. No acute fr acture, subluxation or endplate erosion. LUMBAR: Prominent vascular calcifications. Soft tissues otherwise unremarkable. No acute fracture, subluxatio n, spondylolysis or spondylolisthesis. Minimal spondylitic spurring. The intervertebral disc spaces a re generally well preserved. IMPRESSION: No acute fracture or subluxation. ACT 112: Negative or not required by law. The above report was generated using voice recognition software. It may contain grammatical, syntax o r spelling errors. Electronically signed by: Anand Hou M.D. 03/18/2022 10:24 AM
[2022-03-18] MEDS ORDERED: EPOETIN ALFA 10,000 UNITS/ML VIAL IV ONE (10:26)
[2022-03-18] MEDS: ISOSORBIDE MONO EXTENDED REL 30 MG TABCR PO SCH (11:37)
[2022-03-18] MEDS: carvediloL 25 MG TAB PO SCH ×2 (11:37→18:07)
[2022-03-18] MEDS: SEVELAMER HCL 800 MG TABLET PO SCH ×3 (11:38→17:33)
[2022-03-18] MEDS: NEPHROCAPS PO SCH (11:38)
[2022-03-18] MEDS ORDERED: PNEUMOCOCCAL POLYSACCHARIDES 25 MCG/0.5 ML VIAL/SYR IM ONE (11:51)
[2022-03-18 13:46] LABS: Troponin I High Sensitivity 53.7 pg/ml (0-20)
[2022-03-18] MEDS: HEPARIN SOD (PORCINE) 1000 UNIT/ML IV SCH (17:03)
--- NOTE | 2022-03-18 17:07 | Cardiology Consultation ---
Date of Consultation March 18, 2022 Assessment & Plan (1) Ischemic cardiomyopathy: -Patient presents with noted interval decline in left ventricular ejection fraction compared to 2 years ago. -Noted past concerns of difficulty with compliance. Continue current medication regimen as administered in the observed setting including aspirin, carvedilol, amlodipine, clonidine, isosorbide mononitrate, Lipitor -Worsening of cardiac function may be due to volume overload related to hemodialysis nonadherence and hypertension. History of Present Illness Attending Physician: Trevon Ramos MD History of Present Illness Mr Rebolledo is a 36-year-old male seen in cardiology consultation per the request of Dr. Ramos for the evaluation of shortness of breath, history of ischemic h eart disease, cardiomyopathy. Patient notes recent back pain, not adia shortness of breath. He states that he was ill enough with regards to the back pain that he missed his planned dialysis session, yesterday 03/17/2022. He presented to the emergency department, with hypertension, chest x-ray consistent with volume overload. At the time my assessment he was comfortable. He had already been seen by nephrology and plans were in process to proceed with dialysis. Problem List 1.Noncompliance 2.Type 1 diabetes 3.End-stage renal disease on hemodialysis via a right upper extremity fistula. Home Lending Officer is Dr. Alen Khan of [facility]. 4.Significant diabetic retinopathy as well as diabetic macular edema of the left eye. 5.In May 2017 he presented for preoperative risk assessment prior to renal transplant. He was referred for dobutamine stress echocardiography, presenting on June 08, 2017 with uncontrolled hypertension. At that time he underwent resting echocardiography revealing severely reduced left ventricular systolic function with qualitative left ventricular ejection fraction of 20 to 24%. The apical inferior and apical septum were noted to be akinetic. No significant valvular disease was observed. 6.July 2017 cardiac catheterization at [facility] revealed multivessel CAD (see summary below). 7.Status post August 16, 2017 coronary artery bypass grafting x 2 with an SANTOS to the LAD and a SVG to the distal RCA. Sinus rhythm noted throughout the hospitalization. Nocturnal hypoxemia was observed for which home oxygen supplementation (2 L/min) was ordered. Malfunctioning right brachial artery to cephalic vein AV fistula observed, undergoing fistulogram with peripheral venous angioplasty on August 19, 2017. 8.Ischemic cardiomyopathy. Initial EF 20%. 9.Cronic tobacco abuse 10.Hypertension 11.Dyslipidemia 12.On September 01, 2019 he was found to be unresponsive in his home, missing dialysis on August 31, 2019. Patient initially transported to [facility], actively seizing on arrival. He was intubated for airway protection. Shortly after intubation he became bradycardic, suffering a PEA arrest. After 2 minutes of CPR return of spontaneous circulation achieved. Marked metabolic derangement noted. He was transferred to [facility] and placed on hypothermic protocol. Supratentorial hypoxic ischemic brain injury confirmed on September 03, 2019 MRI. After approximately 2 weeks he was able to be extubated, regaining ability to eat pureed foods. Visual blindness noted. During course of events the patient was noted at nitroglycerin responsive angina and was evaluated by Cardiology with recommendations to utilize heparin for the NSTEMI and optimize his antianginal therapy. Discharged to [facility] on September 12, 2019 13.Admission to [facility] September 12, 2019 with acute on chronic hypertension, acute on chronic anemia requiring transfusion of packed red blood cells, bleeding from the AV fistula site after dialysis, Hemoccult-positive stools for which anticoagulation was discontinued Allergies Allergy/AdvReac Type Severity Reaction Status Date / Time No Known Allergies Allergy NKA Verified 09/30/19 19:48 Home Medications Medication Instructions Recorded Confirmed Type losartan 100 mg tablet 100 mg PO QAM 11/08/18 09/30/19 History Nephrocaps 1 cap PO QDL 09/30/19 09/30/19 History acetaminophen 325 mg tablet 650 mg PO Q4H PRN Pain (Scale 09/30/19 09/30/19 History (Tylenol) Score 1-3) aspirin 81 mg chewable tablet 81 mg PO QAM 09/30/19 09/30/19 History (Aspirin Childrens) atorvastatin 20 mg tablet 20 mg PO HS 09/30/19 09/30/19 History bisacodyl 10 mg rectal suppository 10 mg MA DAILY PRN Constipation 09/30/19 09/30/19 History carvedilol 25 mg tablet 25 mg PO BIDM 09/30/19 09/30/19 History clopidogrel 75 mg tablet 75 mg PO QAM 09/30/19 09/30/19 History darbepoetin kelly in polysorbat 200 200 mcg subcut .Q7DAYS 09/30/19 09/30/19 History mcg/mL in polysorbate injection (Aranesp) docusate sodium 100 mg capsule 100 mg PO BID 09/30/19 09/30/19 History famotidine 20 mg tablet 20 mg PO QAM 09/30/19 09/30/19 History heparin (porcine) 1,000 unit/mL 1,000 unit IV DIRECTED PRN 09/30/19 09/30/19 History injection solution DIALYSIS insulin glargine 100 unit/mL 12 unit subcut HS 09/30/19 09/30/19 History subcutaneous solution (Lantus U-100 Insulin) insulin regular human 100 unit/mL 1 sliding scale dose subcut TIDM 09/30/19 09/30/19 History injection solution (Humulin R Regular U-100 Insulin) iron sucrose 100 mg iron/5 mL 100 mg IV WK PRN DIALYSIS 09/30/19 09/30/19 History intravenous solution (Venofer) isosorbide mononitrate 30 mg 30 mg PO QAM 09/30/19 09/30/19 History tablet,extended release 24 hr nicotine 14 mg/24 hr daily 1 patch transdermal DAILY 09/30/19 09/30/19 History transdermal patch polyethylene glycol 3350 17 17 g PO QDL PRN Constipation 09/30/19 09/30/19 History gram/dose oral powder (Miralax) sennosides 8.6 mg-docusate sodium 1 tab-cap PO QDL PRN Constipation 09/30/19 09/30/19 History 50 mg tablet (Senokot-S) sevelamer HCl 800 mg tablet 1,600 mg PO TIDM 09/30/19 09/30/19 History sodium chloride 0.9 % 1,000 ml IV DIRECTED PRN 09/30/19 09/30/19 History DIALYSIS amlodipine 10 mg tablet See Rx Instructions .Route 08/27/21 Rx .COMPLEX #90 tabs clonidine HCl 0.2 mg tablet See Rx Instructions .Route 08/27/21 Rx .COMPLEX #180 tabs Patient History Medical History CAD (coronary artery disease) Diabetic nephropathy Diabetic retinopathy Diastolic dysfunction Dyslipidemia Dyslipidemia ESRD on dialysis ESRD on hemodialysis TUESDAY/TUE/TUESDAY ([facility]) Hypertension Ischemic cardiomyopathy Initial EF 20%, echo 01/2019 EF 50 to 54% Macular degeneration Type I diabetes mellitus Surgical History History of tooth extraction S/P CABG x 2 Family History Mother Family history of diabetes mellitus Kidney disease Father Family history of diabetes mellitus Kidney disease Social History Smoking Status: Current every day smoker Tobacco Type: Cigarettes Cigarettes Per Day: 30; Second Hand Exposure: No; Do You Dip or Chew Tobacco: No; Tobacco Cessation Education Requested by Patient: No Hx Alcohol Use: No Hx Substance Use: No Preferred Language: Beninese Communication Ability: Effective Pit Manager Required: No Beliefs That Will Affect Care: None marital status: Single Current Living Situation: Alone Other Information That Helps Us Care for You: No Feels Safe at Home: Yes Safety Concerns: Feels Safe At This Time Assistive Devices: Glasses Review of Systems Review of Systems: All systems reviewed & are unremarkable except as noted in HPI & below Physical Exam Physical Exam: Temp Pulse Resp BP Pulse Ox O2 Del Method O2 Flow Rate 36.5 C 63 16 160/87 H 95 2 03/18/22 13:15 03/18/22 16:00 03/18/22 11:41 03/18/22 16:00 03/18/22 11:41 03/18/22 11:41 03/18/22 11:41 Constitutional: no acute distress Eyes: PERRL Respiratory: no respiratory distress and no labored breathing Auscultation: + diminished lung sounds (Mildly decreased breath sounds the bases) Cardiovascular: RRR, no murmur, no edema Extremities: no edema Gastrointestinal (Abdomen): normal bowel sounds, soft, nontender, no hepatosplenomegaly Neurologic: PERRL, EOMI, accommodation nl, no face palsy, no dysarthria awake; no focal motor deficits and not confused Results & Data ([facility]) Laboratory Results Cardiac Enzymes 03/18/22 03/18/22 03/18/22 Range/Units 05:46 12:42 Unknown AST 7 L (13-39) U/L Troponin I High Sens 56.9 H* 53.7 H* 57.2 H* (0-20) pg/ml CBC 03/18/22 Range/Units Unknown WBC 7.60 (4.8-10.8) K/ul RBC 2.73 L (4.63-6.08) M/uL Hgb 8.5 L (14.0-18.0) g/dl Hct 25.8 L (40.1-51.0) % Plt Count 209 (130-400) K/uL Neut # (Auto) 5.67 (1.4-6.5) K/uL Lymph # (Auto) 0.95 L (1.2-3.4) K/uL Lassen # (Auto) 0.56 (0.24-0.82) K/uL Eos # (Auto) 0.29 (0-0.50) K/uL Baso # (Auto) 0.11 (0-0.2) K/uL Comprehensive Metabolic Panel 03/18/22 Range/Units Unknown Sodium 136 (136-145) mmol/L Potassium 3.9 (3.5-5.1) mmol/L Chloride 93 L (98-107) mmol/L Carbon Dioxide 28 (21-32) mmol/L BUN 51 H (6-23) mg/dl Creatinine 10.30 H* (0.6-1.4) mg/dl Glucose 419 H* (70-99(Fasting)) mg/dl Calcium 9.0 (8.5-10.1) mg/dl AST 7 L (13-39) U/L ALT 9 (7-52) U/L Alkaline Phosphatase 74 (34-104) U/L Total Protein 6.6 (6.0-8.3) gm/dl Albumin 3.8 (3.4-5.0) gm/dl Intake and Output 03/18/22 03/18/22 03/18/22 06:59 14:59 22:59 Other: Weight 59.4 kg 59.6 kg 59.6 kg Weight Measurement Method Chair Scale Built in [facility] Patient Weight 03/19/22 06:59 Weight 59.6 kg Diagnostic Findings Chest x-ray, summary of radiology report, with image reviewed independently, enlargement of the cardiac silhouette, interstitial edema, small pleural effusions EKG performed today 03/18/2022, 8:33 AM, interpreted independently, sinus rhythm at 69 bpm, left posterior fascicular block, left ventricular hypertrophy suggested by voltage criteria, poor R wave progression suggestive of age- indeterminate anterior infarction, no significant repolarization changes -Compared to prior tracing dating back to 10/01/2019, relatively unchanged, T wave inversion noted at that time and V6 is actually improved on the present tracings. Echocardiogram performed today reviewed independently: Left ventricular cavity is moderately dilated, left ventricular end-diastolic dimension 6.2 cm Left ventricular apex is akinetic Otherwise there is diffuse mild left ventricular hypokinesis The LV systolic function is mildly reduced, qualitative left ventricular ejection fraction in the range of 35-39% Grade II -III diastolic dysfunction noted with evidence of elevated left atrial filling pressure Pulmonary systolic pressure estimated to be 35 mmHg -Compared to the images obtained at the time of the prior study at the [facility] performed 10/01/2019, there has been interval increase in the left ventricular chamber size and decrease in LVEF which had been noted to be 50 to 55% at that time. The apical akinesis is chronic.
--- NOTE | 2022-03-18 20:52 | CT Scan Report ---
ABDOMEN AND PELVIS CT WITHOUT CONTRAST CT DOSE: 286.47 mGy.cm HISTORY: Generalized abdominal pain. evaluate intra abdomninal pathology TECHNIQUE: Multiaxial CT images of the abdomen and pelvis were performed without contrast. A dose lo wering technique was utilized adhering to the principles of ALARA. COMPARISON STUDY: Abdomen and pelvis CT 09/30/2019. FINDINGS: Mild interlobular septal thickening within the lung bases suggestive of mild pulmonary perez a. Stable 12 mm peripheral nodule within the lingula on image 28. This is likely benign given the mallory g-term stability. There are are a few linear scarlike densities within the left lung base, unchanged. The heart remains mildly enlarged. Small bilateral pleural effusions are also unchanged. No pneumope ritoneum. No pneumatosis. No fractures within the visualized osseous structures. There are poststerno bowen changes. Mild body wall edema. Advanced vascular calcifications are noted. The unenhanced liver, spleen, adrenal glands, and pancreas are within normal limits. Moderate bilateral renal atrophy julien ins unchanged. There is no hydronephrosis. No retroperitoneal lymphadenopathy. Normal caliber abdomin al aorta. No gallbladder wall thickening. Linear calcification near the gallbladder neck may be withi n the wall of the gallbladder rather than representing gallstones. The bladder is decompressed and no t well evaluated. The bladder wall thickening may be due to underdistention. The prostate gland remai ns mildly enlarged. There are suboptimal evaluation for bowel pathology due to the lack of intravenou s and oral contrast. However, there is no evidence for a bowel obstruction. The appendix is diffusely thickened measuring up to 12 mm. This is stable to slightly progressed in the interval. Therefore, t his could represent chronic thickening due to the patient's diffuse edematous state or a developing a cute appendicitis. IMPRESSION: 1. The appendix is diffusely thickened measuring up to 12 mm. This is stable to slightly progressed i n the interval. Therefore, this could represent chronic thickening due to the patient's diffuse edema tous state or a developing acute appendicitis. Clinical correlation recommended to assess for right l ower quadrant pain. 2. No evidence for bowel obstruction. 3. Cardiomegaly with mild interstitial pulmonary edema and small bilateral pleural effusions. 4. Mild body wall edema. 5. Bladder wall thickening. This could be due to underdistention. Recommend correlation with urinalys is. 6. Linear calcifications at the gallbladder neck may be within the gallbladder wall rather than repre senting small stones. ACT 112: Negative or not required by law. Electronically signed by: Bandar Drake M.D. 03/18/2022 8:49 PM
[2022-03-18] MEDS ORDERED: LANTUS PER UNIT CHARGE SQ SCH (21:00)
[2022-03-18] MEDS ORDERED: ATORVASTATIN 20 MG TAB PO SCH (21:00)
--- NOTE | 2022-03-18 21:43 | Electrocardiogram Report ---
Test Reason : Blood Pressure : / mmHG Vent. Rate : 065 BPM Atrial Rate : 065 BPM P-R Int : 188 ms QRS Dur : 122 ms QT Int : 466 ms P-R-T Axes : 061 091 117 degrees QTc Int : 484 ms Normal sinus rhythm Rightward axis Possible Septal infarct , age undetermined Poor R wave progression, consider anterior NH vs. lead placement vs. LVH T wave abnormality, consider lateral ischemia Prolonged QT Abnormal ECG When compared with ECG of 01-OCT-2019 06:05, No significant change Confirmed by Javon Alberts ([id number]) on 03/18/2022 9:43:44 PM Referred By: REFERRED SELF Confirmed By:Javon Alberts
[2022-03-19] MEDS: cloNIDine HCL 0.1 MG TAB PO SCH (05:22)
--- NOTE | 2022-03-19 05:40 | Electrocardiogram Report ---
Test Reason : Blood Pressure : / mmHG Vent. Rate : 069 BPM Atrial Rate : 069 BPM P-R Int : 180 ms QRS Dur : 122 ms QT Int : 458 ms P-R-T Axes : 064 124 107 degrees QTc Int : 490 ms Normal sinus rhythm Possible Septal infarct Poor R wave progression, consider anterior VA vs. lead placement vs. LVH Prolonged QT Abnormal ECG When compared with ECG of 18-MAR-2022 04:10, No significant change Confirmed by Javon Alberts ([id number]) on 03/19/2022 5:40:36 AM Referred By: REFERRED SELF Confirmed By:Javon Alberts
[2022-03-19] MEDS: carvediloL 25 MG TAB PO SCH (08:17)
[2022-03-19] MEDS: SEVELAMER HCL 800 MG TABLET PO SCH ×2 (08:18→13:38)
[2022-03-19] MEDS: amLODIPine BESYLATE 5 MG TAB PO SCH (08:18)
[2022-03-19] MEDS: ASPIRIN 81 MG ECTAB PO SCH (08:18)
[2022-03-19] MEDS: DOCUSATE SODIUM 100 MG CAP PO SCH (08:19)
[2022-03-19] MEDS: ISOSORBIDE MONO EXTENDED REL 30 MG TABCR PO SCH (08:19)
[2022-03-19] MEDS: FAMOTIDINE 20 MG TAB PO SCH (08:19)
[2022-03-19] MEDS: INSULIN ASPART PER UNIT SC SCH ×2 (08:23→13:39)
[2022-03-19 08:40] LABS: Basophils # (auto) 0.13 K/uL (0-0.2); Eosinophils # (auto) 0.35 K/uL (0-0.50); Eosinophils % (auto) 5.4 %; Hematocrit (blood only) 30.5 % (40.1-51.0); Hemoglobin 9.8 g/dl (14.0-18.0); Immature Granulocytes # (auto) 0.02 K/uL (0.00-0.02); Immature Granulocytes % (auto) 0.3 %; Lymphocytes # (auto) 1.49 K/uL (1.2-3.4); Lymphocytes % (auto) 22.9 %; Mean Corpuscular Hemoglobin 30.6 pg (25.0-34.0); Mean Corpuscular Hgb Conc 32.1 g/dL (32.0-36.0); Mean Corpuscular Volume 95.3 fL (80.0-100.0); Mean Platelet Volume 10.8 fL (9.4-12.4); Monocytes # (auto) 0.56 K/uL (0.24-0.82); Monocytes % (auto) 8.6 %; Neutrophils # (auto) 3.97 K/uL (1.4-6.5); Neutrophils % (auto) 60.8 %; Platelet Count 213 K/uL (130-400); RDW Coefficient of Variation 13.6 % (11.5-14.5); RDW Standard Deviation 47.8 fL (36.4-46.3); White Blood Count 6.52 K/ul (4.8-10.8)
--- NOTE | 2022-03-19 08:47 | Nephrology Progress Note ---
Date of Service March 19, 2022 Assessment & Plan (1) ESRD on dialysis: Plan: * Will provide 2 hour HD today to resume patient's MWF chronic HD schedule - HD RN notified * Outpatient HD: [facility] MWF 3.5 hr 2K 2Ca F-180NR Qb 400 EDW 70 kg * If discharge is anticipated, please have patient resume MWF at [facility] (2) Atypical back pain: Plan: * Patient reports that pain has resolved * Clinically suspect musculoskeletal discomfort * no rash, t-spine and LS spine x-rays negative for fracture, LFT - wnl, await lipase * Abdominal CT with thickening of the appendix - chronic finding. Patient is afebrile, normal WBC# and without abdominal discomfort/peritoneal signs (3) Ischemic cardiomyopathy: Plan: * s/p CABG x2 Admission and Anticipated Discharge Date Admission Date: March 18, 2022 Subjective Mr. Rebolledo was evaluated in his hospital room this morning. He reports that his back discomfort has improved. He denies fever, abdominal pain, N/V/D. He is tolerating a renal diet Review of Systems Constitutional: no fever Eyes: no problem reported Ear, Nose, Mouth, Throat: no problem reported Respiratory: no cough and no dyspnea Cardiovascular: no chest pain Gastrointestinal: no abdominal pain Musculoskeletal: no back pain Physical Exam Constitutional: not in distress Eyes: PERRL, conjunctivae normal, anicteric sclerae ENMT: external ear and nose normal, oropharynx normal Neck: trachea midline, no thyromegaly Respiratory: Auscultation: + rales Cardiovascular: Rate/Rhythm: regular rate and regular rhythm Extremities: + AV fistula (+ bruit) Gastrointestinal (Abdomen): normal bowel sounds, soft, nontender, no hepatosplenomegaly Neurologic: awake; not confused Results & Data ([facility]) Vital Signs (Past 12 Hours) Vital Signs Temp Pulse Pulse Resp BP Pulse Ox O2 Del Method 03/19/22 07:49 66 157/88 H 03/19/22 06:59 63 03/19/22 05:21 67 168/100 H 03/19/22 03:29 36.7 C 71 18 177/103 H 94 Room Air 03/18/22 22:16 66 03/18/22 22:53 36.9 C 67 16 146/87 H 93 Room Air Laboratory Results Laboratory Tests 03/19/22 03/19/22 08:18 08:18 WBC 6.52 Hgb 9.8 L Hct 30.5 L Plt Count 213 Sodium 139 Potassium 4.3 Chloride 101 Carbon Dioxide 27 BUN 26 H D Creatinine 6.79 H* D Glucose 111 H Diagnostic Findings 03/18/[address]: 1. The appendix is diffusely thickened measuring up to 12 mm. This is stable to slightly progressed in the interval. Therefore, this could represent chronic thickening due to the patient's diffuse edematous state or a developing acute appendicitis. Clinical correlation recommended to assess for right lower quadrant pain. 2. No evidence for bowel obstruction. 3. Cardiomegaly with mild interstitial pulmonary edema and small bilateral pleural effusions. 4. Mild body wall edema. 5. Bladder wall thickening. This could be due to underdistention. Recommend correlation with urinalysis. 6. Linear calcifications at the gallbladder neck may be within the gallbladder wall rather than representing small stones. PG Care Time/CCT Total # of Minutes Spent Total Time Spent with Patient: Total time spent is greater than 50% in coordination of care (as documented) at patient's floor/unit and/or counseling patient: Coding Level of Care Code 48754 Subseq Hosp Care Lvl 3 Diagnoses ESRD on dialysis N18.6; Z99.2 Atypical back pain M54.9 Ischemic cardiomyopathy I25.5
[2022-03-19 09:24] LABS: BUN Creatinine Ratio 3.8 (10-20); Calcium 9.7 mg/dl (8.5-10.1); Creatinine Clr Calc Pharmacy 14.4 ml/min; Est GFR (African American) 10.9 ml/min; Est GFR (Non-African American) 9.4 ml/min; Potassium 4.3 mmol/L (3.5-5.1)
[2022-03-19] MEDS ORDERED: HEPARIN SOD (PORCINE) 1000 UNIT/ML IV ONE (10:10)
--- NOTE | 2022-03-19 11:17 | Cardiology Progress Note ---
Date of Service March 19, 2022 Assessment & Plan (1) Ischemic cardiomyopathy: (2) Volume overload: (3) ESRD on dialysis: Plan Patient admitted for back pain, but found to be hypervolemic after missing HD sessions. LV dysfunction noted on echo with LVEF 35-39%, with dilated LV, possibly due to volume overload. Patient is to go for repeat HD today for additional fluid removal. He is currently comfortable and asymptomatic. Continue home medications including ASA, amlodipine, atorvastatin, carvedilol, clonidine, isosorbide. He is not on LIZABETH/ARB due to ESRD. Initially admitted for back pain, this is now improved as well. Case discussed with Dr. Sotelo Admission and Anticipated Discharge Date Admission Date: March 18, 2022 Supervising Physician Co-Signing Physician Notes Case discussed with Cata Acosta PA-C. Patient discharged prior to me having the opportunity to examine him. Patient symptomatically improved. Agree with plan for adherence to dialysis schedule as outpatient and medication schedule. Lateral T wave changes on EKG are chronic. Subjective Patient resting in bed comfortably. He reports his back pain has improved since admission. He denies symptoms of SOB, cough, orthopnea, edema. Scheduled for HD today by nephrology for ongoing fluid removal. No chest pain. No dizziness. No palpitations. Review of Systems Review of Systems: All systems reviewed & are unremarkable except as noted in HPI & below Physical Exam Physical Exam: Temp Pulse Resp BP Pulse Ox O2 Del Method O2 Flow Rate 36.5 C 63 16 160/87 H 95 2 03/18/22 13:15 03/18/22 16:00 03/18/22 11:41 03/18/22 16:00 03/18/22 11:41 03/18/22 11:41 03/18/22 11:41 Constitutional: no acute distress Eyes: PERRL Respiratory: no respiratory distress and no labored breathing Auscultation: + diminished lung sounds (Mildly decreased breath sounds the bases) Cardiovascular: RRR, no murmur, no edema Extremities: no edema Gastrointestinal (Abdomen): normal bowel sounds, soft, nontender, no hepatosplenomegaly Neurologic: PERRL, EOMI, accommodation nl, no face palsy, no dysarthria awake; no focal motor deficits and not confused Results & Data ([facility]) Vital Signs (Past 12 Hours) Vital Signs Temp Pulse Pulse Resp BP Pulse Ox O2 Del Method 03/19/22 07:45 37.2 C 90 18 94 Room Air 03/19/22 10:42 37.2 C 90 18 94 Room Air 03/19/22 09:46 Room Air 03/19/22 07:49 66 157/88 H 03/19/22 06:59 63 03/19/22 05:21 67 168/100 H 03/19/22 03:29 36.7 C 71 18 177/103 H 94 Room Air Laboratory Results Cardiac Enzymes 03/18/22 03/18/22 Range/Units 12:42 Unknown AST 7 L (13-39) U/L Troponin I High Sens 53.7 H* 57.2 H* (0-20) pg/ml CBC 03/19/22 Range/Units 08:18 WBC 6.52 (4.8-10.8) K/ul RBC 3.20 L (4.63-6.08) M/uL Hgb 9.8 L (14.0-18.0) g/dl Hct 30.5 L (40.1-51.0) % Plt Count 213 (130-400) K/uL Neut # (Auto) 3.97 (1.4-6.5) K/uL Lymph # (Auto) 1.49 (1.2-3.4) K/uL [place] # (Auto) 0.56 (0.24-0.82) K/uL Eos # (Auto) 0.35 (0-0.50) K/uL Baso # (Auto) 0.13 (0-0.2) K/uL Comprehensive Metabolic Panel 03/18/22 03/19/22 Range/Units Unknown 08:18 Sodium 136 139 (136-145) mmol/L Potassium 3.9 4.3 (3.5-5.1) mmol/L Chloride 93 L 101 (98-107) mmol/L Carbon Dioxide 28 27 (21-32) mmol/L BUN 51 H 26 H D (6-23) mg/dl Creatinine 10.30 H* 6.79 H* D (0.6-1.4) mg/dl Glucose 419 H* 111 H (70-99(Fasting)) mg/dl Calcium 9.0 9.7 (8.5-10.1) mg/dl AST 7 L (13-39) U/L ALT 9 (7-52) U/L Alkaline Phosphatase 74 (34-104) U/L Total Protein 6.6 (6.0-8.3) gm/dl Albumin 3.8 (3.4-5.0) gm/dl Intake and Output 03/18/22 03/19/22 03/19/22 22:59 06:59 14:59 Intake Total 240 / 360 120 / 360 Balance 240 / 360 120 / 360 Intake: Oral 240 / 360 120 / 360 Other: Hemodialysis Ultrafiltration 3,500 Amount Weight 56.1 kg 68.4 kg Weight Measurement Method Standing Scale Diagnostic Findings Telemetry reviewed: NSR, without arrhythmias echo report reviewed from 03/18/22: LV is moderately dilated LV apex is akinetic. Otherwise, there is diffuse mild LV hypokinesis. LV systolic function is moderately reduced. Qualittive LVEF 35-39% Diastolic dysfunction grade II consistent with elevated LA pressure. Pulm artery systolic pressure is estimated to be 35 mmHg. Medications Administered Current Inpatient Medications Acetaminophen (Acetaminophen 325 Mg Tab) 650 mg PO Q4H PRN PRN Reason: Pain or Fever Stop: 04/17/22 06:50 Last Admin: 03/19/22 03:25 Dose: 650 mg Amlodipine Besylate (Amlodipine Besylate 5 Mg Tab) 5 mg PO DAILY JANAK Stop: 04/17/22 08:59 Last Admin: 03/19/22 08:18 Dose: 5 mg Aspirin (Aspirin 81 Mg Ectab) 81 mg PO QAM JANAK Stop: 04/17/22 08:59 Last Admin: 03/19/22 08:18 Dose: 81 mg Atorvastatin Calcium (Atorvastatin 20 Mg Tab) 20 mg PO HS JANAK Stop: 04/17/22 20:59 Last Admin: 03/18/22 20:03 Dose: 20 mg Bisacodyl (Bisacodyl 10 Mg Supp) 10 mg OR DAILY PRN PRN Reason: Constipation Stop: 04/17/22 06:50 Carvedilol (Carvedilol 25 Mg Tab) 25 mg PO BIDM JANAK Stop: 04/17/22 07:59 Last Admin: 03/19/22 08:17 Dose: 25 mg Clonidine HCl (Clonidine Hcl 0.1 Mg Tab) 0.2 mg PO BID JANAK Stop: 04/17/22 08:59 Last Admin: 03/19/22 05:22 Dose: 0.2 mg Dextrose (Dextrose 50% 50 Ml Syringe) 25 - 50 ml IV UD PRN; Protocol PRN Reason: Hypoglycemia Protocol Stop: 04/17/22 07:44 Docusate Sodium (Docusate Sodium 100 Mg Cap) 100 mg PO BID [facility] Stop: 04/17/22 08:59 Last Admin: 03/19/22 08:19 Dose: 100 mg Famotidine (Famotidine 20 Mg Tab) 20 mg PO QAM JANAK Stop: 04/17/22 08:59 Last Admin: 03/19/22 08:19 Dose: 20 mg Glucagon (Glucagon For Inj 1 Mg Vial) 1 mg IM UD PRN; Protocol PRN Reason: Hypoglycemia Protocol Stop: 04/17/22 07:44 Glucose (Glucose 40% Gel 15 Gm Tube) 15 - 30 gm PO UD PRN; Protocol PRN Reason: Hypoglycemia Protocol Stop: 04/17/22 07:44 Glucose (Glucose 10 Tab/Tube) 4 - 8 tab PO UD PRN; Protocol PRN Reason: Hypoglycemia Protocol Stop: 04/17/22 07:44 Hydromorphone HCl (Hydromorphone Inj 0.5 Mg/0.5 Ml Syr) 0.25 mg IV Q4H PRN PRN Reason: Pain Stop: 04/01/22 06:50 Last Admin: 03/19/22 03:24 Dose: 0.25 mg Insulin Aspart (Insulin Aspart Per Unit) 0 units SC ACHS [facility] Stop: 04/17/22 07:29 Last Admin: 03/19/22 08:23 Dose: 4 units Insulin Glargine (Lantus Per Unit Charge) 12 units SQ HS [facility] Stop: 04/17/22 20:59 Last Admin: 03/18/22 20:34 Dose: 12 units Isosorbide Mononitrate (Isosorbide [place] Extended Rel 30 Mg Tabcr) 30 mg PO QAM JANAK Stop: 04/17/22 08:59 Last Admin: 03/19/22 08:19 Dose: 30 mg Miscellaneous (Carbohydrates For Hypoglycemia ) 15 - 30 gm PO UD PRN PRN Reason: Hypoglycemia Treatment Stop: 04/17/22 07:44 Nitroglycerin (Nitroglycerin Sl 0.4 Mg/Tab Tab) 0.4 mg SL UD PRN PRN Reason: Chest Pain Stop: 04/17/22 06:50 Polyethylene Glycol (Polyethylene (Miralax) 17 Gm Pack) 17 gm PO DAILY PRN PRN Reason: Constipation Stop: 04/17/22 06:50 Sevelamer HCl (Sevelamer Hcl 800 Mg Tablet) 1,600 mg PO TIDM [facility] Stop: 04/17/22 07:59 Last Admin: 03/19/22 08:18 Dose: 1,600 mg Vitamin B Complex/Folic Acid (Nephrocaps) 1 cap PO QDL JANAK Stop: 04/17/22 11:29 Last Admin: 03/18/22 11:38 Dose: 1 cap
[2022-03-19] MEDS: NEPHROCAPS PO SCH (13:38)
[2022-03-19] MEDS ORDERED: methylPREDNISolone 60 MG in SYRINGE 0 ML IV STA (14:44)
--- NOTE | 2022-03-19 14:52 | Discharge Summary ---
Date of Service March 19, 2022 Admission HPI Per Admitting Provider This is a 36-year-old male with past medical history significant for type 1 diabetes, diabetic retinopathy, secondary hyperparathyroidisms, end-stage renal disease on hemodialysis, restrictive lung disease, hypertension, status post CABG, history of toxoplasmosis, history of ischemic cardiomyopathy, initial EF was 20% and in 09/2019 EF was 50-55%, presents with back pain. In the ER, he received dose of morphine.He was hypoxic at 87%, requiring oxygen. The patient says he is having back pain since last Tuesday at home, 7/10 severity. He could not sleep well so he missed the dialysis yesterday and is not getting better, so he came to the ER. Denies any incontinence of the stools. The patient does not make urine. Somewhat constipated. Denies any fever or chills. No chest pain, no abdominal pain, no nausea, no vomiting. In the ER, he is feeling shortness of breath, and he has had cough since he came to the ER, bringing some whitish phlegm and has some runny nose. No headache, no neck pain. Vision is okay. No earache, no sore throat. Appetite is okay. Patient is ambulating okay. Currently, hemodynamically stable. Patient has also history of PEA, cardiac arrest secondary to respiratory failure after missing dialysis in the past. He also suffered hypoxic ischemic encephalopathy, which has been resolved. Admission Exam Per Admitting Provider GENERAL: The patient is of moderate build, not in acute distress. VITAL SIGNS: Temperature 36, pulse 74, respiratory rate 18, blood pressure 156/90, oxygen 99% on room air, 3 liters in mid 90s. HEENT: Pupils equal, round and reactive to light. Oral mucosa moist. NECK: No JVD, no neck masses. CARDIOVASCULAR: S1 and S2 heard. Regular rate and rhythm. No murmur, no gallop. RESPIRATORY SYSTEM: Normal AP diameter. No accessory muscle use. No wheezing. Bibasilar crackles heard. ABDOMEN: Soft, bowel sounds present, nontender, no distention. CENTRAL NERVOUS SYSTEM: Cranial nerves II-XII grossly intact, nonfocal. EXTREMITIES: No edema, no erythema. Principal Diagnosis volume overload Discharge Exam GENERAL: The patient is of moderate build, not in acute distress. HEENT: Pupils equal, round and reactive to light. Oral mucosa moist. NECK: No JVD, no neck masses. CARDIOVASCULAR: S1 and S2 heard. Regular rate and rhythm. No murmur, no gallop. RESPIRATORY SYSTEM: Normal AP diameter. No accessory muscle use. No wheezing. CTAB ABDOMEN: Soft, bowel sounds present, nontender, no distention. CENTRAL NERVOUS SYSTEM: Cranial nerves II-XII grossly intact, nonfocal. EXTREMITIES: No edema, no erythema. Discharge Data Allergies Allergy/AdvReac Type Severity Reaction Status Date / Time No Known Allergies Allergy NKA Verified 09/30/19 19:48 Consultations 03/18/22 05:45 ED Decision to Admit Stat 03/18/22 08:00 Consult Nephrology Routine 03/18/22 14:51 Consult Cardiology Routine Ordered Studies 03/18/22 12:12 CT abd pelvis wo con Routine Diabetes Follow up Diabetes Follow-up Needed for HgbA1c >9% Hospital Course (1) Hypoxia: - missed HD session day prior to admission due to back pain - CXR with evidence of pulm congestion, requiring O2 supplementation - Renal consulted and HD given - subsequent HD give 03/19/2022 to get back on MWF schedule - improvement in repsiratory symptoms and no long on O2, tolerating RA - ok for discharge and regular Hd schedule MWF (2) ESRD on dialysis: - see above (3) Volume overload: - see above (4) CAD (coronary artery disease): - stable no chest pain or ECG changes - see by cardiology, continue home regimen (5) CHF (congestive heart failure): - interval decrease in LVEF from prior TTE - could be related to volume status - continue current meds, no other signs of CHF exacerbation - will need follow up as outpatient for repeat ECHO Total Time Total Time Spent Total Time Spent (In Minutes): 33 Total Time Includes: Examination of the Patient, Discharge Planning, Medication Reconciliation and Communication With Other Providers Discharge Plan Discharge Items Patient Disposition: Home - Self-Care Reason For Visit: BACK PAIN Discharge Diagnosis: volume overload due to missed dialysis Activity: Resume your previous activity Non-emergency contact: Primary Care Provider, Reception Agent and Vp Organizational Development Call non-emergency contact if: you have any medication questions and your symptoms worsen Follow-up/Referrals: Alen Khan DO [Physician] - Yeyo Lowe [Physician Commodities Trader] - (Date & Time 04/01/2022 8:00 AM Provider Yeyo Lowe PA-C Department Cardiology, [facility] ) Mckinley Douglas MD [Primary Care Provider] - (Date & Time 03/24/2022 11:00 AM Provider Sabina Augustine MD Department [facility] ) Diet: Carb Consistent or DM2, Dialysis Renal and Heart Healthy Addtl Attending Provider Instructions: You were admitted due to missed dialysis and shortness of breath. You received a session of dialysis 03/18/2022 and short session 03/19/2022 to resume you on regular MWF schedule. You had an echocardiogram that showed worsening of heart function which could be related to the excess fluid that was removed with dialysis. Cardiology recommends continuing regular medications and to follow up with grips and to resume your normal outpatient hemodialysis. Pending Studies at Discharge: No Stand-Alone Forms: My [facility] [employer], Smoking Cessation Medications and DC Order Prescriptions: Continued amlodipine 10 mg tablet See Rx Instructions .ROUTE .COMPLEX Qty: 90 5RF Dose Instruction: TAKE 1 TABLET BY MOUTH EVERY DAY Rx Instructions: TAKE 1 TABLET BY MOUTH EVERY DAY clonidine HCl 0.2 mg tablet See Rx Instructions .ROUTE .COMPLEX Qty: 180 6RF Dose Instruction: TAKE 1 TABLET BY MOUTH TWICE DAILY DIRECTED Rx Instructions: TAKE 1 TABLET BY MOUTH TWICE DAILY DIRECTED carvedilol 25 mg Tablet 25 mg PO BIDM acetaminophen [Tylenol] 325 mg Tablet 650 mg PO Q4H PRN (Reason: Pain (Scale Score 1-3)) atorvastatin 20 mg Tablet 20 mg PO HS nicotine 14 mg/24 hr Patch 24 Hour 1 patch TRANSDERMAL DAILY insulin glargine [Lantus U-100 Insulin] 100 unit/mL Solution 12 unit SUBCUT HS heparin (porcine) 1,000 unit/mL Solution 1,000 unit IV DIRECTED PRN (Reason: DIALYSIS) sevelamer HCl 800 mg Tablet 1,600 mg PO TIDM isosorbide mononitrate 30 mg Tablet Extended Release 24 Hr 30 mg PO QAM sennosides-docusate sodium [Senokot-S] 8.6-50 mg Tablet 1 tab-cap PO QDL PRN (Reason: Constipation) famotidine 20 mg Tablet 20 mg PO QAM bisacodyl 10 mg Suppository 10 mg TN DAILY PRN (Reason: Constipation) Humulin R Regular U-100 Insuln 100 unit/mL Solution 1 sliding scale dose SUBCUT TIDM Rx Instructions: BSG 70-130=0 UNITS, BSG 131-180=2 UNITS, BSG 181-240=4 UNITS, BSG 241-300=6 UNITS, BSG 301-350=8 UNITS, BSG 351-400=10 UNITS, BSG >400=12 UNITS; CALL MD. Venofer 100 mg iron/5 mL Solution 100 mg IV WK PRN (Reason: DIALYSIS) Rx Instructions: EVERY TUESDAY PRN DIALYSIS docusate sodium 100 mg Capsule 100 mg PO BID aspirin [Aspirin Childrens] 81 mg Tablet,Chewable 81 mg PO QAM polyethylene glycol 3350 [Miralax] 17 gram/dose Powder 17 g PO QDL PRN (Reason: Constipation) sodium chloride 0.9 % Piggyback 1,000 ml IV DIRECTED PRN (Reason: DIALYSIS) Aranesp (in polysorbate) 200 mcg/mL Solution 200 mcg subcut .Q7DAYS Nephrocaps 1 cap PO QDL Discontinued clopidogrel 75 mg Tablet 75 mg PO QAM losartan 100 mg tablet 100 mg PO QAM Discharge Orders: Discharge Order (Routine); Ordered 03/19/22 Ordered By: Trevon Amaya/Other Patient Handouts: Hemodialysis, Communicating About Pain, Back Care Every Day Admission Data Admit Date/Time: 03/18/22 06:36 Attending Provider: Trevon Ramos Admit Provider: Danilo Burroughs Primary Care Provider: Mckinley Douglas Other Providers: Alen Khan ; Danilo Burroughs ; Jeovany Sotelo Other Interventions: Discharge Summary Assessment (RN) Last Done: 03/19/22 12:44
--- NOTE | 2022-03-19 15:51 | Electrocardiogram Report ---
Test Reason : Blood Pressure : / mmHG Vent. Rate : 067 BPM Atrial Rate : 067 BPM P-R Int : 188 ms QRS Dur : 114 ms QT Int : 440 ms P-R-T Axes : 043 042 139 degrees QTc Int : 464 ms Normal sinus rhythm Possible Left atrial enlargement Possible Anteroseptal infarct , age undetermined Abnormal ECG When compared with ECG of 18-MAR-2022 08:33, Left posterior fascicular block is no longer Present T wave inversion more evident in Lateral leads Confirmed by Klaus Moses ([id number]) on 03/19/2022 3:51:05 PM Referred By: REFERRED SELF Confirmed By:Klaus Moses
[2022-03-20 16:40] LABS: HBSAG NON-REACTIVE (NON-REACTIVE)
== END 2022-03-19 14:15 | disposition home or self-care (01) ==
LOC: ED 03:10 → EDINP 06:36 → INTOOBSV 06:36 → 2W 06:43
DX: E87.70 Fluid overload, unspecified; I25.10 Atherosclerotic heart disease of native coronary artery without angina pectoris; Z79.899 Other long term (current) drug therapy; Z79.4 Long term (current) use of insulin; N18.6 End stage renal disease; M54.50 Low back pain, unspecified; Z79.02 Long term (current) use of antithrombotics/antiplatelets; R09.02 Hypoxemia; I25.5 Ischemic cardiomyopathy; I50.9 Heart failure, unspecified; F17.210 Nicotine dependence, cigarettes, uncomplicated; Z95.5 Presence of coronary angioplasty implant and graft; Z79.82 Long term (current) use of aspirin

== ENCOUNTER 2022-09-25 21:26 | Inpatient (IN) ==
[2022-09-25 22:22] LABS: Basophils # (auto) 0.09 K/uL (0-0.2); Basophils % (auto) 1.2 %; Eosinophils # (auto) 0.61 K/uL (0-0.50); Eosinophils % (auto) 8.2 %; Hematocrit (blood only) 28.2 % (42.0-52.0); Immature Granulocytes # (auto) 0.03 K/uL (0.01-0.20); Immature Granulocytes % (auto) 0.4 %; Lymphocytes # (auto) 0.87 K/uL (1.2-3.4); Lymphocytes % (auto) 11.7 %; Mean Corpuscular Hemoglobin 28.6 pg (25.0-34.0); Mean Corpuscular Hgb Conc 31.9 g/dL (32.0-36.0); Mean Corpuscular Volume 89.5 fL (80.0-100.0); Mean Platelet Volume 11.1 fL (9.4-12.4); Monocytes # (auto) 0.47 K/uL (0.11-0.59); Monocytes % (auto) 6.3 %; Neutrophils # (auto) 5.37 K/uL (1.40-6.50); Neutrophils % (auto) 72.2 %; Platelet Count 198 K/uL (130-400); RDW Coefficient of Variation 16.4 % (11.5-14.5); RDW Standard Deviation 53.8 fL (36.4-46.3); Red Blood Count 3.15 M/uL (4.70-6.10); White Blood Count 7.44 K/ul (4.8-10.8)
[2022-09-25 22:37] LABS: Albumin Globulin Ratio 1.1 (0.9-2); Albumin Level 3.7 gm/dl (3.4-5.0); BUN Creatinine Ratio 7.9 (10-20); Bilirubin,Total 0.5 mg/dl (0.2-1.0); Calcium 9.8 mg/dl (8.6-10.3); Creatinine Clr Calc Pharmacy 11.8 ml/min; Est GFR (African American) 7.9 ml/min; Est GFR (Non-African American) 6.8 ml/min; Globulin 3.5 gm/dl (2.5-4.0); Potassium 5.6 mmol/L (3.5-5.1); Total Protein 7.2 gm/dl (6.0-8.3)
[2022-09-25 22:43] LABS: Troponin I High Sensitivity 48.3 pg/ml (0-20)
[2022-09-25 22:59] LABS: INR 1.2 (0.9-1.1); Partial Thromboplastin Time 27.3 Seconds (21.0-31.0); Prothrombin Time 12.8 Seconds (9.0-12.0)
[2022-09-25] MEDS ORDERED: MoRPHine SULFATE 2 MG/ML CARP IV STA (23:37)
[2022-09-25] MEDS ORDERED: NovoLIN-R INSULIN PER UNIT CHARGE IV STA (23:37)
[2022-09-25] MEDS ORDERED: ACETAMINOPHEN 325 MG TAB PO STA (23:49)
[2022-09-25] MEDS ORDERED: CALCIUM GLUCONATE 1,000 MG/60 ML BAG IV STA (23:49)
[2022-09-26] MEDS ORDERED: SODIUM BICARBONATE 8.4% INJ 50 MEQ/50 ML VIAL IV STA (00:46)
--- NOTE | 2022-09-26 00:56 | CT Scan Report ---
Exam(s): CT ABDOMEN + PELVIS Without Contrast EXAM: CT Abdomen and Pelvis Without Intravenous Contrast CLINICAL HISTORY: Reason for exam: abd pain. TECHNIQUE: Axial computed tomography images of the abdomen and pelvis without intravenous contrast. Automated exposure control was utilized for the study. A dose lowering technique was utilized adhering to the principles of ALARA. COMPARISON: Dated 03/18/22 FINDINGS: Lung bases: Unremarkable. No mass. No consolidation. Pleural space: Trace bilateral pleural effusions. ABDOMEN: Liver: Unremarkable. Gallbladder and bile ducts: There is cholelithiasis within an otherwise normal gallbladder. No ductal dilation. Pancreas: Unremarkable. No ductal dilation. Spleen: Unremarkable. No splenomegaly. Adrenals: Unremarkable. No mass. Kidneys and ureters: Unremarkable. No obstructing stones. No hydronephrosis. Stomach and bowel: Unremarkable. No obstruction. No mucosal thickening. PELVIS: Appendix: No findings to suggest acute appendicitis. Bladder: Unremarkable. No stones. Reproductive: Unremarkable as visualized. ABDOMEN and PELVIS: Intraperitoneal space: There is small volume ascites. No free air. Bones/joints: No acute fracture. No dislocation. Soft tissues: Unremarkable. Vasculature: There is extensive severe atherosclerotic disease. No abdominal aortic aneurysm. Lymph nodes: Unremarkable. No enlarged lymph nodes. IMPRESSION: 1. Small volume ascites and trace bilateral pleural effusions. 2. Advanced atherosclerotic disease. 3. Cholelithiasis. Electronically signed by: Placido Read MD 09/26/22 00:55 AM
[2022-09-26] MEDS ORDERED: DOCUSATE SODIUM/SENNA 50/8.6MG TAB PO STA (00:58)
[2022-09-26] MEDS ORDERED: LACTULOSE SYRUP 20 GM/30 ML UDC PO STA (00:58)
[2022-09-26 01:02] LABS: Magnesium 2.2 mg/dl (1.7-2.4)
[2022-09-26] MEDS ORDERED: PROMETHAZINE HCL 6.25 MG in SODIUM CHLORIDE 0.9% 50 ML IV PRN (01:06)
[2022-09-26] MEDS ORDERED: ACETAMINOPHEN W/CODEINE #3 1 TAB PO PRN (01:06)
--- NOTE | 2022-09-26 02:34 | History & Physical Report ---
Date of Service September 26, 2022 Assessment & Plan (1) Volume overload: Plan: Volume overload and hyperkalemia History ESRD, chronic systolic heart failure secondary to ischemic cardiomyopathy Secondary to incomplete hemodialysis Troponin elevation secondary to above hx CAD status post CABG HTN, stable hyperlipidemia, on statin Rx DM 1, reasonable control as of recent hemoglobin A1c of 7.4 last July 2022 chronic anemia secondary to CKD hemoglobin at baseline ongoing tobacco abuse. constipation Medical telemetry Sodium bicarb 1 dose Recheck serum potassium Nephrology consult Re: Dialysis management Follow troponin, TTE if with significant progression Basal bolus insulin ISS BG goal 1 10-1 40, carb count coverage Bowel regimen Nicotine patch as needed DVT prophylaxis. Heparin subcu Full code Text document was generated using [employer] voice recognition software. It may contain grammatical or spelling errors. Kindly contact undersigned for clarification of any documentation item in question. History of Present Illness Chief Complaint: Abdominal pain, constipation, shortness of breath Primary Care Provider: Mckinley Douglas MD History obtained from patient and records. Medical history significant for chronic systolic heart failure secondary to ischemic cardiomyopathy (EF 35 to 39%, TTE 2021 ), CAD status post CABG, HTN, borderline pulm hypertension, hyperlipidemia, DM 1, ESRD on HD, chronic anemia (baseline hemoglobin 9-10), past history of toxoplasmosis as per records, ongoing tobacco abuse. Last confinement March 2022 for hypoxemic respiratory failure secondary to volume overload secondary to missed hemodialysis. 2 weeks history of achy abdominal pain and constipation symptoms. Somewhat unusual as per patient. No fever, no chills. No response to OTC laxatives. 2 days ago, patient unable to finish outpatient hemodialysis secondary to abdo lilly discomfort. Patient noted worsening abdominal distention, fluid retention and shortness of breath yesterday. No cough symptoms. Abdominal pain going to the chest. Shortness of breath from not being able to take deep breath from abdominal distention as per patient. Patient consulted ER. IV insulin administered for hyperkalemia. 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 Allergies Allergy/AdvReac Type Severity Reaction Status Date / Time clopidogrel [From Plavix] Allergy Severe itching Verified 09/20/22 10:28 Home Medications Medication Instructions Recorded Confirmed Type acetaminophen 325 mg tablet 650 mg PO Q4H PRN Pain (Scale 09/30/19 09/25/22 History (Tylenol) Score 1-3) atorvastatin 20 mg tablet 20 mg PO HS 09/30/19 09/25/22 History carvedilol 25 mg tablet 25 mg PO BIDM 09/30/19 09/25/22 History heparin (porcine) 1,000 unit/mL 1,000 unit IV DIRECTED PRN 09/30/19 09/25/22 History injection solution DIALYSIS insulin glargine 100 unit/mL 12 unit subcut HS 09/30/19 09/26/22 History subcutaneous solution (Lantus U-100 Insulin) insulin regular human 100 unit/mL 1 sliding scale dose subcut TIDM 09/30/19 09/25/22 History injection solution (Humulin R Regular U-100 Insulin) iron sucrose 100 mg iron/5 mL 100 mg IV WK PRN DIALYSIS 09/30/19 09/25/22 History intravenous solution (Venofer) isosorbide mononitrate 30 mg 30 mg PO QPM 09/30/19 09/25/22 History tablet,extended release 24 hr sodium chloride 0.9 % 1,000 ml IV DIRECTED PRN 09/30/19 09/25/22 History DIALYSIS calcium acetate(phosphat bind) 667 1,334 mg PO TIDM 04/07/22 09/25/22 History mg capsule aspirin 81 mg tablet,delayed 81 mg PO DAILY #30 tabs 05/24/22 09/25/22 Rx release (Adult Aspirin Regimen) clonidine HCl 0.2 mg tablet 0.2 mg PO BID 07/12/22 09/26/22 History benzonatate 100 mg capsule 100 mg PO TID PRN Cough 07/27/22 09/25/22 History vitamin B complex and vitamin C See Rx Instructions .Route 08/23/22 09/25/22 Rx no.20-folic acid 1 mg capsule .COMPLEX #90 caps (Triphrocaps) amlodipine 10 mg tablet 10 mg PO QPM #90 tabs 09/22/22 09/25/22 Rx Past Med/Surg History Medical History (Updated 09/26/22 @ 02:45 by Km Bryant MD) History of convulsions Found on the floor "convulsing" years ago, no definite etiology/no seizure diagnosis, no issues since Macular degeneration Family History Mother Family history of diabetes mellitus Kidney disease Father Family history of diabetes mellitus Kidney disease Social History Smoking Status: Current every day smoker Tobacco Type: Cigarettes Age Started Using Tobacco: 11; packs per day: 1; Cigarettes Per Day: 30; Second Hand Exposure: No; Hx Alcohol Use: No Hx Substance Use: No Preferred Language: [place] Communication Ability: Effective Hearing Ability: Normal Extrusion Press Supervisor Required: No Beliefs That Will Affect Care: None marital status: Single Current Living Situation: Alone other: Patient does have anyone to help with dressings Feels Safe at Home: Yes Diet Comment: Renal Assistive Devices: Glasses Review of Systems Review of Systems: As per HPI, all other systems reviewed and negative Physical Exam Physical Exam: GENERAL: Slightly uncomfortable, sallow, looks older than stated age, no respiratory distress SKIN: Sallow, warm HEENT: bespectacled, pale palpebral conjunctivae, no ptosis, dry buccal mucosa NECK : Supple, no tenderness CHEST : CTA, no tenderness HEART : RRR, no obvious murmurs ABDOMEN: Some distention, minimal central abdominal tenderness EXTREMITIES : Minimal LE swelling, no LE tenderness, no other conspicuous deformities noted NEUROLOGIC : Coherent, no facial asymmetry, no other gross focality Results & Data Results & Data Vital Signs (Past 12 Hours) Vital Signs Temp Pulse Resp BP Pulse Ox O2 Del Method 09/26/22 01:00 69 17 146/85 H 90 Room Air 09/26/22 00:47 70 17 166/85 H 93 Room Air 09/26/22 00:00 67 14 149/80 H 92 Room Air 09/25/22 23:00 79 20 142/88 H 94 Room Air 09/25/22 22:49 78 12 162/98 H 96 Room Air 09/25/22 23:30 68 09/25/22 21:30 36.8 C 74 20 154/88 H 95 Room Air Laboratory Results Laboratory Results WBC 7.44 K/ul (4.8-10.8) 09/25/22 21:50 RBC 3.15 M/uL (4.70-6.10) L 09/25/22 21:50 Hgb 9.0 g/dl (14.0-18.0) L 09/25/22 21:50 Hct 28.2 % (42.0-52.0) L 09/25/22 21:50 MCV 89.5 fL (80.0-100.0) 09/25/22 21:50 MCH 28.6 pg (25.0-34.0) 09/25/22 21:50 MCHC 31.9 g/dL (32.0-36.0) L 09/25/22 21:50 RDW Std Deviation 53.8 fL (36.4-46.3) H 09/25/22 21:50 RDW Coeff of Hedy 16.4 % (11.5-14.5) H 09/25/22 21:50 Plt Count 198 K/uL (130-400) 09/25/22 21:50 MPV 11.1 fL (9.4-12.4) 09/25/22 21:50 Immature Gran % (Auto) 0.4 % 09/25/22 21:50 Neut % (Auto) 72.2 % 09/25/22 21:50 Lymph % (Auto) 11.7 % 09/25/22 21:50 [place] % (Auto) 6.3 % 09/25/22 21:50 Eos % (Auto) 8.2 % 09/25/22 21:50 Baso % (Auto) 1.2 % 09/25/22 21:50 Neut # (Auto) 5.37 K/uL (1.40-6.50) 09/25/22 21:50 Lymph # (Auto) 0.87 K/uL (1.2-3.4) L 09/25/22 21:50 [place] # (Auto) 0.47 K/uL (0.11-0.59) 09/25/22 21:50 Eos # (Auto) 0.61 K/uL (0-0.50) H 09/25/22 21:50 Baso # (Auto) 0.09 K/uL (0-0.2) 09/25/22 21:50 Immature Gran # (Auto) 0.03 K/uL (0.01-0.20) 09/25/22 21:50 PT 12.8 Seconds (9.0-12.0) H 09/25/22 21:50 INR 1.2 (0.9-1.1) H 09/25/22 21:50 APTT 27.3 Seconds (21.0-31.0) 09/25/22 21:50 PTT Ratio 1.0 09/25/22 21:50 Sodium 134 mmol/L (136-145) L 09/25/22 21:50 Potassium 5.6 mmol/L (3.5-5.1) H 09/25/22 21:50 Chloride 93 mmol/L (98-107) L 09/25/22 21:50 Carbon Dioxide 27 mmol/L (21-32) 09/25/22 21:50 Anion Gap 14 (3-11) H 09/25/22 21:50 BUN 70 mg/dl (6-23) H 09/25/22 21:50 Creatinine 8.83 mg/dl (0.6-1.4) H* 09/25/22 21:50 Est Cr Clr Drug Dosing 11.8 ml/min 09/25/22 21:50 Est GFR ( Amer) 7.9 ml/min 09/25/22 21:50 Est GFR (Non-Af Amer) 6.8 ml/min 09/25/22 21:50 BUN/Creatinine Ratio 7.9 (10-20) L 09/25/22 21:50 Glucose 320 mg/dl (70-99(Fasting)) H* 09/25/22 21:50 POC Glucose 66 mg/dl (70-99) L* 09/26/22 02:01 Calcium 9.8 mg/dl (8.6-10.3) 09/25/22 21:50 Magnesium 2.2 mg/dl (1.7-2.4) 09/25/22 21:50 Total Bilirubin 0.5 mg/dl (0.2-1.0) 09/25/22 21:50 AST 11 U/L (13-39) L 09/25/22 21:50 ALT 11 U/L (7-52) 09/25/22 21:50 Alkaline Phosphatase 80 U/L (34-104) 09/25/22 21:50 Troponin I High Sens 48.3 pg/ml (0-20) H 09/25/22 21:50 Total Protein 7.2 gm/dl (6.0-8.3) 09/25/22 21:50 Albumin 3.7 gm/dl (3.4-5.0) 09/25/22 21:50 Globulin 3.5 gm/dl (2.5-4.0) 09/25/22 21:50 Albumin/Globulin Ratio 1.1 (0.9-2) 09/25/22 21:50 Lipase 9 U/L (11-82) L 09/25/22 21:50 SARS-CoV-2, RNA, NAAT NEGATIVE (NEGATIVE) 09/25/22 22:51 Impressions Abdomen/Pelvis CT 09/25/22 23:49 Exam(s): CT ABDOMEN + PELVIS Without Contrast EXAM: CT Abdomen and Pelvis Without Intravenous Contrast CLINICAL HISTORY: Reason for exam: abd pain. TECHNIQUE: Axial computed tomography images of the abdomen and pelvis without intravenous contrast. Automated exposure control was utilized for the study. A dose lowering technique was utilized adhering to the principles of ALARA. COMPARISON: Dated 03/18/22 FINDINGS: Lung bases: Unremarkable. No mass. No consolidation. Pleural space: Trace bilateral pleural effusions. ABDOMEN: Liver: Unremarkable. Gallbladder and bile ducts: There is cholelithiasis within an otherwise normal gallbladder. No ductal dilation. Pancreas: Unremarkable. No ductal dilation. Spleen: Unremarkable. No splenomegaly. Adrenals: Unremarkable. No mass. Kidneys and ureters: Unremarkable. No obstructing stones. No hydronephrosis. Stomach and bowel: Unremarkable. No obstruction. No mucosal thickening. PELVIS: Appendix: No findings to suggest acute appendicitis. Bladder: Unremarkable. No stones. Reproductive: Unremarkable as visualized. ABDOMEN and PELVIS: Intraperitoneal space: There is small volume ascites. No free air. Bones/joints: No acute fracture. No dislocation. Soft tissues: Unremarkable. Vasculature: There is extensive severe atherosclerotic disease. No abdominal aortic aneurysm. Lymph nodes: Unremarkable. No enlarged lymph nodes. IMPRESSION: 1. Small volume ascites and trace bilateral pleural effusions. 2. Advanced atherosclerotic disease. 3. Cholelithiasis. Electronically signed by: Placido Read MD 09/26/22 00:55 AM Diagnostic Findings Chest x-ray as per my interpretation cardiomegaly, congestion EKG as per my interpretation : Rate 75, NSR, RAD, LPFB, septal infarct, T wave abnormalities inferior lateral leads Code Status & VTE Plan VTE Prophylaxis Plan VTE Prophylaxis will be ordered: Yes
[2022-09-26] MEDS ORDERED: DEXTROSE 5% 1,000 ML IV ONE (02:35)
[2022-09-26] MEDS ORDERED: GLUCAGON FOR INJ 1 MG VIAL SQ PRN ×2 (03:45→04:04)
[2022-09-26] MEDS ORDERED: GLUCOSE 10 TAB/TUBE PO PRN (03:45)
[2022-09-26] MEDS ORDERED: ACETAMINOPHEN 325 MG TAB PO PRN (03:45)
[2022-09-26] MEDS ORDERED: DEXTROSE 50% 50 ML SYRINGE IV PRN ×2 (03:45→04:04)
[2022-09-26] MEDS ORDERED: GLUCOSE 40% GEL 15 GM TUBE PO PRN (03:45)
--- NOTE | 2022-09-26 03:45 | Emergency Department Note ---
Impression & Plan Chest pain, ESRD (end stage renal disease), Acute hyperkalemia, Hyperglycemia ED Provider Note INFORMANT: Patient ED PROVIDER(S): Rafael Hitchcock MD CHIEF COMPLAINT: Chest pain PLAN: Disposition: Admitted Condition: Good Outpatient prescription management: none Referral: None MEDICAL DECISION MAKING: Patient presented because of chest pain. Twelve-lead ECG was performed and is abnormal however has not significantly changed from March 25. Patient chest x-ray shows some mild CHF. His CBC showed a mild anemia. Chemistry panel was consistent with end-stage renal disease. He does have mildly elevated troponin and was hyperglycemic. Potassium was mildly elevated consistent with hyperkalemia. Patient does not have ECG changes of hyperkalemia. He was given IV morphine and insulin. Patient does not require emergent dialysis but will need treatment in the near future. Patient will need further management in the hospital. Consultation was made with Dr. Km Bryant, [facility] hospitalist service. Case was discussed and diagnostics were reviewed. Patient was evaluated in the ER admitted for further management Discussed with workers compensation manager After review of the information above and other included data, I feel the patient requires admission. Triage Nursing notes reviewed and agree them. Vital Signs: reviewed and remarkable for no significant abnormalities Prior /Outside records reviewed: none Differential diagnosis: Cardiac ischemia, aortic dissection, pulmonary embolism, pneumothorax, pneumonia, pericarditis, myocarditis, esophageal rupture, GERD, cholecystitis, pancreatitis, musculoskeletal, as well as other pathologies. Diagnostics, as interpreted by me: ECG: Twelve-lead ECG reveals normal sinus rhythm at 74 beats. Left posterior fascicular block. Septal Q wave. Inferolateral T wave inversion present. This is slightly worse compared to prior of 19 March 2022. Cardiac Monitoring: Cardiac monitoring ordered by me: The patient was placed on continuous cardiac monitoring and observed. It revealed a normal sinus rhythm at 69 beats per minute without ectopy or evidence of dysrhythmia. Medical decision rules: Patient moderate risk by HEART score Imaging studies: Chest x-ray shows cardiomegaly, postsurgical changes and mild edema. I refer you to the EMR for further details. HPI: The patient is a 37 year old male who presents to the Emergency Room with complaints of chest pain. This started 2 days ago and is retrosternal. Patient does notice fluctuated. The patient also notes the following associated symptoms, fatigue and mild abdominal discomfort. The patient has taken no medication for relieving factors. Current pain is rated as 4/10. Patient has a history of end-stage renal disease. He states he did not finish his dialysis yesterday because he was constipated and uncomfortable sitting in dialysis. He notes if he does not complete dialysis he does get chest discomfort. When fluid overloaded. He does have a history of CAD. Pt denies LOC, headache, fevers, chills, diaphoresis, visual changes, neck pain, breathing difficulties, nausea, vomiting, back pain, melena, hematochezia, urinary symptoms, numbness, wea kness, lymphadenopathy, rash, or other complaints. PAST MEDICAL HISTORY: See Below, end-stage renal disease, CAD, diabetes PAST SURGICAL HISTORY: See Below, AV fistula SOCIAL HISTORY: See Below, smoker HOME MEDICATIONS: See Below ALLERGIES: See Below VITALS: See Below PHYSICAL EXAMINATION: GENERAL: Awake, alert, nontoxic-appearing, in no distress HENT: Normocephalic, atraumatic. Oropharynx unremarkable. EYES: Normal conjunctiva. Sclera non-icteric. NECK: Inspection normal. Non-tender. Supple. No nuchal rigidity. FROM. No masses. RESPIRATORY: Clear to auscultation. No wheezes. No rales. Normal respiratory effort. CARDIAC: Normal rate. Normal rhythm. No murmurs. No rubs. Extremities warm and well perfused. Pulses equal. No JVD. Fistula present in the right upper extremity. Palpable thrill. GI: Soft, non-distended. No tenderness to palpation. No rebound or guarding. No masses. RECTAL: Deferred. MUSCULOSKELETAL: Atraumatic. Chest examination reveals no tenderness. The back is symmetrical on inspection without obvious abnormality. There is no CVA tenderness to palpation. No joint edema. LOWER EXTREMITIES: Calves are equal size bilaterally and non-tender. 1+ lower extremity edema. Chronic venous discoloration. NEURO: Normal sensorium. No sensory or motor deficits noted. SKIN: No rash or jaundice noted. Past Med/Surg History Medical History (Updated 09/26/22 @ 03:45 by Rafael Hitchcock MD) History of convulsions Found on the floor "convulsing" years ago, no definite etiology/no seizure diagnosis, no issues since Macular degeneration Family History Mother Family history of diabetes mellitus Kidney disease Father Family history of diabetes mellitus Kidney disease Social History Smoking Status: Current every day smoker Tobacco Type: Cigarettes Age Started Using Tobacco: 11; packs per day: 1; Cigarettes Per Day: 30; Second Hand Exposure: No; Hx Alcohol Use: No Hx Substance Use: No Preferred Language: Vietnamese Communication Ability: Effective Hearing Ability: Normal [employer] Required: No Beliefs That Will Affect Care: None marital status: Single Current Living Situation: Alone other: Patient does have anyone to help with dressings Feels Safe at Home: Yes Diet Comment: Renal Assistive Devices: Glasses Allergies Allergies Allergy/AdvReac Type Severity Reaction Status Date / Time clopidogrel [From Plavix] Allergy Severe itching Verified 09/20/22 10:28 Home Meds Home Medications Medication Instructions Recorded Confirmed acetaminophen 325 mg tablet 650 mg PO Q4H PRN Pain (Scale 09/30/19 09/25/22 (Tylenol) Score 1-3) atorvastatin 20 mg tablet 20 mg PO HS 09/30/19 09/25/22 carvedilol 25 mg tablet 25 mg PO BIDM 09/30/19 09/25/22 heparin (porcine) 1,000 unit/mL 1,000 unit IV DIRECTED PRN 09/30/19 09/25/22 injection solution DIALYSIS insulin glargine 100 unit/mL 12 unit subcut HS 09/30/19 09/26/22 subcutaneous solution (Lantus U-100 Insulin) insulin regular human 100 unit/mL 1 sliding scale dose subcut TIDM 09/30/19 09/25/22 injection solution (Humulin R Regular U-100 Insulin) iron sucrose 100 mg iron/5 mL 100 mg IV WK PRN DIALYSIS 09/30/19 09/25/22 intravenous solution (Venofer) isosorbide mononitrate 30 mg 30 mg PO QPM 09/30/19 09/25/22 tablet,extended release 24 hr sodium chloride 0.9 % 1,000 ml IV DIRECTED PRN 09/30/19 09/25/22 DIALYSIS calcium acetate(phosphat bind) 667 1,334 mg PO TIDM 04/07/22 09/25/22 mg capsule clonidine HCl 0.2 mg tablet 0.2 mg PO BID 07/12/22 09/26/22 benzonatate 100 mg capsule 100 mg PO TID PRN Cough 07/27/22 09/25/22 Previous Rx's Medication Instructions Recorded aspirin 81 mg tablet,delayed 81 mg PO DAILY #30 tabs 05/24/22 release (Adult Aspirin Regimen) vitamin B complex and vitamin C See Rx Instructions .Route 08/23/22 no.20-folic acid 1 mg capsule .COMPLEX #90 caps (Triphrocaps) amlodipine 10 mg tablet 10 mg PO QPM #90 tabs 09/22/22 Results & Data (ED) Vital Signs Vital Signs - 24 hr 09/25/22 21:30 09/25/22 23:30 09/25/22 22:49 Temperature 36.8 C Temperature Source Temporal Artery Scan Pulse Rate 74 68 78 Pulse Rate from SpO2 Sensor Respiratory Rate 20 12 Respiratory Effort / Characteristics Non-Labored Spontaneous Respiratory Depth Normal Blood Pressure 154/88 H 162/98 H Blood Pressure Mean 110 119 Pulse Oximetry 95 96 Oxygen Delivery Method Room Air Room Air Sepsis New/Unexplained Change in Mental Status N/A Sepsis Action Taken by Nursing No Action Required 09/25/22 23:00 09/26/22 00:00 09/26/22 00:47 Temperature Temperature Source Pulse Rate 79 67 70 Pulse Rate from SpO2 Sensor 71 Respiratory Rate 20 14 17 Respiratory Effort / Characteristics Respiratory Depth Blood Pressure 142/88 H 149/80 H 166/85 H Blood Pressure Mean 106 103 112 Pulse Oximetry 94 92 93 Oxygen Delivery Method Room Air Room Air Room Air Sepsis New/Unexplained Change in Mental Status Sepsis Action Taken by Nursing 09/26/22 01:00 Temperature Temperature Source Pulse Rate 69 Pulse Rate from SpO2 Sensor Respiratory Rate 17 Respiratory Effort / Characteristics Respiratory Depth Blood Pressure 146/85 H Blood Pressure Mean 105 Pulse Oximetry 90 Oxygen Delivery Method Room Air Sepsis New/Unexplained Change in Mental Status Sepsis Action Taken by Nursing Laboratory Data 09/25/22 21:50 09/25/22 21:50 Lab Results 09/25/22 09/25/22 09/25/22 Range/Units 21:50 21:50 21:50 WBC 7.44 (4.8-10.8) K/ul RBC 3.15 L (4.70-6.10) M/uL Hgb 9.0 L (14.0-18.0) g/dl Hct 28.2 L (42.0-52.0) % MCV 89.5 (80.0-100.0) fL MCH 28.6 (25.0-34.0) pg MCHC 31.9 L (32.0-36.0) g/dL RDW Std Deviation 53.8 H (36.4-46.3) fL RDW Coeff of Hedy 16.4 H (11.5-14.5) % Plt Count 198 (130-400) K/uL MPV 11.1 (9.4-12.4) fL Immature Gran % (Auto) 0.4 % Neut % (Auto) 72.2 % Lymph % (Auto) 11.7 % [place] % (Auto) 6.3 % Eos % (Auto) 8.2 % Baso % (Auto) 1.2 % Neut # (Auto) 5.37 (1.40-6.50) K/uL Lymph # (Auto) 0.87 L (1.2-3.4) K/uL [place] # (Auto) 0.47 (0.11-0.59) K/uL Eos # (Auto) 0.61 H (0-0.50) K/uL Baso # (Auto) 0.09 (0-0.2) K/uL Immature Gran # (Auto) 0.03 (0.01-0.20) K/uL PT 12.8 H (9.0-12.0) Seconds INR 1.2 H (0.9-1.1) APTT 27.3 (21.0-31.0) Seconds PTT Ratio 1.0 Sodium 134 L (136-145) mmol/L Potassium 5.6 H (3.5-5.1) mmol/L Chloride 93 L (98-107) mmol/L Carbon Dioxide 27 (21-32) mmol/L Anion Gap 14 H (3-11) BUN 70 H (6-23) mg/dl Creatinine 8.83 H* (0.6-1.4) mg/dl Est Cr Clr Drug Dosing 11.8 ml/min Est GFR ( Amer) 7.9 ml/min Est GFR (Non-Af Amer) 6.8 ml/min BUN/Creatinine Ratio 7.9 L (10-20) Glucose 320 H* (70-99(Fasting)) mg/dl POC Glucose (70-99) mg/dl Calcium 9.8 (8.6-10.3) mg/dl Magnesium 2.2 (1.7-2.4) mg/dl Total Bilirubin 0.5 (0.2-1.0) mg/dl AST 11 L (13-39) U/L ALT 11 (7-52) U/L Alkaline Phosphatase 80 (34-104) U/L Troponin I High Sens 48.3 H (0-20) pg/ml Total Protein 7.2 (6.0-8.3) gm/dl Albumin 3.7 (3.4-5.0) gm/dl Globulin 3.5 (2.5-4.0) gm/dl Albumin/Globulin Ratio 1.1 (0.9-2) Lipase 9 L (11-82) U/L SARS-CoV-2, RNA, NAAT (NEGATIVE) 09/25/22 09/26/22 09/26/22 Range/Units 22:51 00:45 01:41 WBC (4.8-10.8) K/ul RBC (4.70-6.10) M/uL Hgb (14.0-18.0) g/dl Hct (42.0-52.0) % MCV (80.0-100.0) fL MCH (25.0-34.0) pg MCHC (32.0-36.0) g/dL RDW Std Deviation (36.4-46.3) fL RDW Coeff of Hedy (11.5-14.5) % Plt Count (130-400) K/uL MPV (9.4-12.4) fL Immature Gran % (Auto) % Neut % (Auto) % Lymph % (Auto) % [place] % (Auto) % Eos % (Auto) % Baso % (Auto) % Neut # (Auto) (1.40-6.50) K/uL Lymph # (Auto) (1.2-3.4) K/uL [place] # (Auto) (0.11-0.59) K/uL Eos # (Auto) (0-0.50) K/uL Baso # (Auto) (0-0.2) K/uL Immature Gran # (Auto) (0.01-0.20) K/uL PT (9.0-12.0) Seconds INR (0.9-1.1) APTT (21.0-31.0) Seconds PTT Ratio Sodium (136-145) mmol/L Potassium (3.5-5.1) mmol/L Chloride (98-107) mmol/L Carbon Dioxide (21-32) mmol/L Anion Gap (3-11) BUN (6-23) mg/dl Creatinine (0.6-1.4) mg/dl Est Cr Clr Drug Dosing ml/min Est GFR ( Amer) ml/min Est GFR (Non-Af Amer) ml/min BUN/Creatinine Ratio (10-20) Glucose (70-99(Fasting)) mg/dl POC Glucose 123 H 62 L* (70-99) mg/dl Calcium (8.6-10.3) mg/dl Magnesium (1.7-2.4) mg/dl Total Bilirubin (0.2-1.0) mg/dl AST (13-39) U/L ALT (7-52) U/L Alkaline Phosphatase (34-104) U/L Troponin I High Sens (0-20) pg/ml Total Protein (6.0-8.3) gm/dl Albumin (3.4-5.0) gm/dl Globulin (2.5-4.0) gm/dl Albumin/Globulin Ratio (0.9-2) Lipase (11-82) U/L SARS-CoV-2, RNA, NAAT NEGATIVE (NEGATIVE) 09/26/22 09/26/22 Range/Units 02:01 03:05 WBC (4.8-10.8) K/ul RBC (4.70-6.10) M/uL Hgb (14.0-18.0) g/dl Hct (42.0-52.0) % MCV (80.0-100.0) fL MCH (25.0-34.0) pg MCHC (32.0-36.0) g/dL RDW Std Deviation (36.4-46.3) fL RDW Coeff of Hedy (11.5-14.5) % Plt Count (130-400) K/uL MPV (9.4-12.4) fL Immature Gran % (Auto) % Neut % (Auto) % Lymph % (Auto) % [place] % (Auto) % Eos % (Auto) % Baso % (Auto) % Neut # (Auto) (1.40-6.50) K/uL Lymph # (Auto) (1.2-3.4) K/uL [place] # (Auto) (0.11-0.59) K/uL Eos # (Auto) (0-0.50) K/uL Baso # (Auto) (0-0.2) K/uL Immature Gran # (Auto) (0.01-0.20) K/uL PT (9.0-12.0) Seconds INR (0.9-1.1) APTT (21.0-31.0) Seconds PTT Ratio Sodium (136-145) mmol/L Potassium (3.5-5.1) mmol/L Chloride (98-107) mmol/L Carbon Dioxide (21-32) mmol/L Anion Gap (3-11) BUN (6-23) mg/dl Creatinine (0.6-1.4) mg/dl Est Cr Clr Drug Dosing ml/min Est GFR ( Amer) ml/min Est GFR (Non-Af Amer) ml/min BUN/Creatinine Ratio (10-20) Glucose (70-99(Fasting)) mg/dl POC Glucose 66 L* 146 H (70-99) mg/dl Calcium (8.6-10.3) mg/dl Magnesium (1.7-2.4) mg/dl Total Bilirubin (0.2-1.0) mg/dl AST (13-39) U/L ALT (7-52) U/L Alkaline Phosphatase (34-104) U/L Troponin I High Sens (0-20) pg/ml Total Protein (6.0-8.3) gm/dl Albumin (3.4-5.0) gm/dl Globulin (2.5-4.0) gm/dl Albumin/Globulin Ratio (0.9-2) Lipase (11-82) U/L SARS-CoV-2, RNA, NAAT (NEGATIVE) Administered Medications Discontinued Medications Acetaminophen (Acetaminophen 325 Mg Tab) 650 mg PO NOW STA Stop: 09/25/22 23:50 Last Admin: 09/26/22 00:13 Dose: 650 mg Documented By: DML Calcium Gluconate () 1,000 mg in 60 mls @ 240 mls/hr IV NOW STA Stop: 09/26/22 00:03 Last Infusion: 09/26/22 00:29 Dose: 0 mls/hr Documented By: Admin: 09/26/22 00:14 Dose: 240 mls/hr Documented By: NADIA Insulin Human Regular (Novolin-R Insulin Per Unit Charge) 10 units IV NOW STA Stop: 09/25/22 23:38 Last Admin: 09/25/22 23:50 Dose: 10 units Documented By: NADIA Co-signed By: HARESH Lactulose (Lactulose Syrup 20 Gm/30 Ml Udc) 30 gm PO NOW STA Stop: 09/26/22 00:59 Last Admin: 09/26/22 03:09 Dose: 30 gm Documented By: NADIA Morphine Sulfate (Morphine Sulfate 2 Mg/Ml Carp) 2 mg IV NOW STA Stop: 09/25/22 23:38 Last Admin: 09/25/22 23:50 Dose: 2 mg Documented By: NADIA Senna/Docusate Sodium (Docusate Sodium/Senna 50/8.6mg Tab) 1 tab PO NOW STA Stop: 09/26/22 00:59 Last Admin: 09/26/22 03:09 Dose: 1 tab Documented By: NADIA Imaging Data Radiologist's Impression: Abdomen/Pelvis CT 09/25/22 23:49 Exam(s): CT ABDOMEN + PELVIS Without Contrast EXAM: CT Abdomen and Pelvis Without Intravenous Contrast CLINICAL HISTORY: Reason for exam: abd pain. TECHNIQUE: Axial computed tomography images of the abdomen and pelvis without intravenous contrast. Automated exposure control was utilized for the study. A dose lowering technique was utilized adhering to the principles of ALARA. COMPARISON: Dated 03/18/22 FINDINGS: Lung bases: Unremarkable. No mass. No consolidation. Pleural space: Trace bilateral pleural effusions. ABDOMEN: Liver: Unremarkable. Gallbladder and bile ducts: There is cholelithiasis within an otherwise normal gallbladder. No ductal dilation. Pancreas: Unremarkable. No ductal dilation. Spleen: Unremarkable. No splenomegaly. Adrenals: Unremarkable. No mass. Kidneys and ureters: Unremarkable. No obstructing stones. No hydronephrosis. Stomach and bowel: Unremarkable. No obstruction. No mucosal thickening. PELVIS: Appendix: No findings to suggest acute appendicitis. Bladder: Unremarkable. No stones. Reproductive: Unremarkable as visualized. ABDOMEN and PELVIS: Intraperitoneal space: There is small volume ascites. No free air. Bones/joints: No acute fracture. No dislocation. Soft tissues: Unremarkable. Vasculature: There is extensive severe atherosclerotic disease. No abdominal aortic aneurysm. Lymph nodes: Unremarkable. No enlarged lymph nodes. IMPRESSION: 1. Small volume ascites and trace bilateral pleural effusions. 2. Advanced atherosclerotic disease. 3. Cholelithiasis. Electronically signed by: Placido Read MD 09/26/22 00:55 AM Discharge Plan Visit Data Chief Complaint: Chest Pain Stated Complaint: CHEST AND ABDOMINAL PAIN ED Provider: Rafael Hitchcock Discharge Problem: Chest pain, ESRD (end stage renal disease), Acute hyperkalemia, Hyperglycemia Forms Stand Alone Forms: My PrePayMe Prescriptions Prescriptions: No Action Triphrocaps 1 mg capsule See Rx Instructions .ROUTE .COMPLEX Qty: 90 10RF Dose Instruction: TAKE 1 CAPSULE BY MOUTH BY MOUTH DAILY Rx Instructions: TAKE 1 CAPSULE BY MOUTH BY MOUTH DAILY amlodipine 10 mg tablet 10 mg PO QPM Qty: 90 1RF Rx Instructions: TAKE 1 TABLET BY MOUTH EVERY DAY carvedilol 25 mg Tablet 25 mg PO BIDM acetaminophen [Tylenol] 325 mg Tablet 650 mg PO Q4H PRN (Reason: Pain (Scale Score 1-3)) atorvastatin 20 mg Tablet 20 mg PO HS insulin glargine [Lantus U-100 Insulin] 100 unit/mL Solution 12 unit SUBCUT HS heparin (porcine) 1,000 unit/mL Solution 1,000 unit IV DIRECTED PRN (Reason: DIALYSIS) isosorbide mononitrate 30 mg Tablet Extended Release 24 Hr 30 mg PO QPM Humulin R Regular U-100 Insuln 100 unit/mL Solution 1 sliding scale dose SUBCUT TIDM Rx Instructions: BSG 70-130=0 UNITS, BSG 131-180=2 UNITS, BSG 181-240=4 UNITS, BSG 241-300=6 UNITS, BSG 301-350=8 UNITS, BSG 351-400=10 UNITS, BSG >400=12 UNITS; CALL . Venofer 100 mg iron/5 mL Solution 100 mg IV WK PRN (Reason: DIALYSIS) Rx Instructions: EVERY TUESDAY PRN DIALYSIS sodium chloride 0.9 % Piggyback 1,000 ml IV DIRECTED PRN (Reason: DIALYSIS) calcium acetate(phosphat bind) 667 mg capsule 1,334 mg PO TIDM aspirin [Adult Aspirin Regimen] 81 mg tablet,delayed release (DR/EC) 81 mg PO DAILY Qty: 30 11RF clonidine HCl 0.2 mg Tablet 0.2 mg PO BID benzonatate 100 mg Capsule 100 mg PO TID PRN (Reason: Cough) Referrals Referrals: Mckinley Douglas MD [Primary Care Provider] -
[2022-09-26] MEDS ORDERED: CARBOHYDRATES FOR HYPOGLYCEMIA PO PRN (04:04)
[2022-09-26] MEDS ORDERED: LACTULOSE SYRUP 30 GM/45 ML UDP PO STA (04:34)
[2022-09-26 04:56] LABS: Basophils # (auto) 0.09 K/uL (0-0.2); Basophils % (auto) 1.1 %; Eosinophils # (auto) 0.71 K/uL (0-0.50); Eosinophils % (auto) 8.4 %; Hematocrit (blood only) 27.3 % (42.0-52.0); Hemoglobin 8.7 g/dl (14.0-18.0); Immature Granulocytes # (auto) 0.02 K/uL (0.01-0.20); Immature Granulocytes % (auto) 0.2 %; Lymphocytes # (auto) 0.97 K/uL (1.2-3.4); Lymphocytes % (auto) 11.5 %; Mean Corpuscular Hemoglobin 28.9 pg (25.0-34.0); Mean Corpuscular Hgb Conc 31.9 g/dL (32.0-36.0); Mean Corpuscular Volume 90.7 fL (80.0-100.0); Mean Platelet Volume 11.2 fL (9.4-12.4); Monocytes # (auto) 0.59 K/uL (0.11-0.59); Neutrophils # (auto) 6.09 K/uL (1.40-6.50); Neutrophils % (auto) 71.8 %; Platelet Count 188 K/uL (130-400); RDW Coefficient of Variation 16.5 % (11.5-14.5); RDW Standard Deviation 54.3 fL (36.4-46.3); Red Blood Count 3.01 M/uL (4.70-6.10); White Blood Count 8.47 K/ul (4.8-10.8)
[2022-09-26 05:26] LABS: BUN Creatinine Ratio 7.9 (10-20); Calcium 9.8 mg/dl (8.6-10.3); Creatinine Clr Calc Pharmacy 11.3 ml/min; Est GFR (African American) 7.5 ml/min; Est GFR (Non-African American) 6.5 ml/min; Potassium 5.2 mmol/L (3.5-5.1); Troponin I High Sensitivity 41.8 pg/ml (0-20)
[2022-09-26] MEDS: HEPARIN SOD 5,000 UNIT/0.5 ML VIAL SQ SCH ×3 (05:42→20:29)
[2022-09-26] MEDS: INSULIN ASPART PER UNIT CHARGE SC SCH ×4 (05:47→20:13)
[2022-09-26] MEDS: LANTUS PER UNIT CHARGE SQ SCH ×2 (06:19→20:14)
[2022-09-26] MEDS: cloNIDine HCL 0.1 MG TAB PO SCH ×2 (07:39→20:30)
[2022-09-26] MEDS: NEPHROCAPS PO SCH (07:39)
[2022-09-26] MEDS: CALCIUM ACETATE 667 MG CAP/TAB PO SCH ×3 (07:40→16:57)
[2022-09-26] MEDS: ASPIRIN 81 MG ECTAB PO SCH (07:40)
[2022-09-26] MEDS: DOCUSATE SODIUM/SENNA 50/8.6MG TAB PO SCH ×2 (07:41→20:30)
[2022-09-26] MEDS: carvediloL 25 MG TAB PO SCH ×2 (07:41→16:57)
[2022-09-26] MEDS ORDERED: LANTUS PER UNIT CHARGE SQ SCH (09:00)
--- NOTE | 2022-09-26 10:17 | XRay Report ---
XR chest 1V not portable CLINICAL HISTORY: Chest pain, nonspecific TECHNIQUE: Single frontal radiograph of the chest was obtained. Comparison: Comparison is made to chest radiograph 03/18/2022 FINDINGS: Median sternotomy wires are unchanged. Cardiomegaly is noted. Prominence and cephalization of the vas culature is seen. Small bilateral pleural effusions are unchanged. IMPRESSION: 1. Cardiomegaly and mild pulmonary edema. This is improved from the prior exam. 2. Redemonstration of small bilateral pleural effusions. ACT 112: Negative or not required by law. Electronically signed by: Raheem Sanz M.D. 09/26/2022 10:14 AM
--- NOTE | 2022-09-26 12:33 | Nephrology Consultation ---
Date of Consultation September 26, 2022 Assessment & Plan (1) ESRD (end stage renal disease): (2) Acute hyperkalemia: (3) Volume overload: (4) Chest pain: (5) Hypertension: (6) Anemia due to chronic kidney disease: (7) Gall bladder stones: Plan 37-year-old male with end-stage renal disease on hemodialysis admitted with CP and abdominal pain. chest x-ray showed bilateral pleural effusion and pulmonary vascular congestion. EKG and cardiac enzymes were unremarkable. CT abdomen pelvis with ascites and gallstones without cholecystitis. Lab showed hyperkalemia, potassium slightly improved with the Yaneth. Volume overloaded however blood pressure control and respiratory status acceptable. -- no indication for emergency dialysis at this time, will schedule for dialysis tomorrow for 4 hours with 2K bath. UF at least 3 L -- advised to strictly follow low-potassium diet,, fluid restriction to <1.2 L/d --phosphate binder with meals --will give Epogen 36222 units x1 dose during dialysis tomorrow --dose medications for GFR less than 10 Will Follow Thank you for allowing me to participate in your patient's care. It was a pleasure to see Yariel History of Present Illness Reason for Consultation: ESRD, on hemodialysis, admitted with abdominal pain. Attending Physician: Tyler Parker MD History of Present Illness Km Rebolledo is a 37 year old gentlemen with PMH significant for ESRD on HD, HTN, DM, ischemic cardiomyopathy, S/P CABG admitted to the hospital with abdominal pain. Nephrology consult was requested for management of hemodialysis with history of incomplete dialysis, volume overload and hyperkalemia. Electronic medical records including labs and imaging reviewed in detail during patient's visit. Yariel presented to ER yesterday with 2 weeks history of abdominal pain, constipation and chest pain for last 2 days. On admission vital signs are stable. EKG showed sinus rhythm. Troponin was slightly elevated. chest x-ray showed Bilateral pleural effusion and pulmonary vascular congestion. CT abdomen pelvis showed small ascites and gallstone without acute cholecystitis. lab showed potassium of 5.7 without any EKG changes and he was given insulin and potassium improved to 5.2. Has end-stage disease setting hypertension, diabetes and coronary artery disease . Has been on dialysis on MWF via left BC AV fistula.Has history of noncompliance with dialysis treatment but he did go for dialysis [facility] however he had only 1.5 h treatment as he could not continues sitting there for long because of the pain His His past medical history also significant for hypertension, diabetes, ischemic cardiomyopathy, CAD s/p CABG. Currently if he otherwise feels well, abdominal pain and chest pain improved, denies shortness or breath. Allergies Allergy/AdvReac Type Severity Reaction Status Date / Time clopidogrel [From Plavix] Allergy Severe itching Verified 09/20/22 10:28 Home Medications Medication Instructions Recorded Confirmed Type acetaminophen 325 mg tablet 650 mg PO Q4H PRN Pain (Scale 09/30/19 09/25/22 History (Tylenol) Score 1-3) atorvastatin 20 mg tablet 20 mg PO HS 09/30/19 09/25/22 History carvedilol 25 mg tablet 25 mg PO BIDM 09/30/19 09/25/22 History heparin (porcine) 1,000 unit/mL 1,000 unit IV DIRECTED PRN 09/30/19 09/25/22 History injection solution DIALYSIS insulin glargine 100 unit/mL 12 unit subcut HS 09/30/19 09/26/22 History subcutaneous solution (Lantus U-100 Insulin) insulin regular human 100 unit/mL 1 sliding scale dose subcut TIDM 09/30/19 09/25/22 History injection solution (Humulin R Regular U-100 Insulin) iron sucrose 100 mg iron/5 mL 100 mg IV WK PRN DIALYSIS 09/30/19 09/25/22 History intravenous solution (Venofer) isosorbide mononitrate 30 mg 30 mg PO QPM 09/30/19 09/25/22 History tablet,extended release 24 hr sodium chloride 0.9 % 1,000 ml IV DIRECTED PRN 09/30/19 09/25/22 History DIALYSIS calcium acetate(phosphat bind) 667 1,334 mg PO TIDM 04/07/22 09/25/22 History mg capsule aspirin 81 mg tablet,delayed 81 mg PO DAILY #30 tabs 05/24/22 09/25/22 Rx release (Adult Aspirin Regimen) clonidine HCl 0.2 mg tablet 0.2 mg PO BID 07/12/22 09/26/22 History benzonatate 100 mg capsule 100 mg PO TID PRN Cough 07/27/22 09/25/22 History vitamin B complex and vitamin C See Rx Instructions .Route 08/23/22 09/25/22 Rx no.20-folic acid 1 mg capsule .COMPLEX #90 caps (Triphrocaps) amlodipine 10 mg tablet 10 mg PO QPM #90 tabs 09/22/22 09/25/22 Rx Patient History Medical History (Updated 09/26/22 @ 12:44 by Shannan Vo MD) Anemia due to chronic kidney disease Gall bladder stones History of convulsions Found on the floor "convulsing" years ago, no definite etiology/no seizure diagnosis, no issues since Macular degeneration Family History Mother Family history of diabetes mellitus Kidney disease Father Family history of diabetes mellitus Kidney disease Social History Smoking Status: Current every day smoker Tobacco Type: Cigarettes Age Started Using Tobacco: 11; packs per day: 1; Cigarettes Per Day: less than 1 pack; Second Hand Exposure: No; Tobacco Cessation Education Requested by Patient: No Hx Alcohol Use: No Hx Substance Use: No Preferred Language: Setswana Communication Ability: Effective Hearing Ability: Normal 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 Physical Exam Constitutional: WD/WN, vitals as above no acute distress Eyes: + anicteric sclerae Neck: normal visual inspection Respiratory: no respiratory distress Auscultation: + diminished lung sounds and + rales Cardiovascular: Rate/Rhythm: regular rate and regular rhythm Heart Sounds: normal S1 and normal S2 Extremities: no edema Gastrointestinal (Abdomen): Inspection/Auscultation: abdomen normal to inspection Percussion/Palpation: + abdomen tender (mild diffuse tenderness.) and abdomen soft; no guarding and abdomen not rigid Musculoskeletal: Extremities: extremities normal to inspection Skin: normal turgor; no rashes Neurologic: no focal motor deficits Psychiatric: Orientation: alert and oriented x 3 Affect: euthymic affect Results & Data Vital Signs (Past 12 Hours) Vital Signs Temp Pulse Pulse Resp BP BP Pulse Ox 09/26/22 11:36 36.9 C 67 16 125/78 93 09/26/22 07:26 36.6 C 70 16 135/70 93 09/26/22 03:38 67 09/26/22 04:10 09/26/22 03:46 36.3 C L 68 18 136/79 95 09/26/22 01:00 69 17 146/85 H 90 09/26/22 00:47 70 17 166/85 H 93 O2 Del Method O2 Flow Rate 09/26/22 11:36 Room Air 09/26/22 07:26 Nasal Cannula 1 09/26/22 03:38 09/26/22 04:10 Nasal Cannula 2 09/26/22 03:46 Nasal Cannula 2 09/26/22 01:00 Room Air 09/26/22 00:47 Room Air PG Care Time/CCT Total # of Minutes Spent Total Time Spent with Patient: Total time spent is greater than 50% in coordination of care (as documented) at patient's floor/unit and/or counseling patient: Coding Level of Care Code 81747 INT INP/OBS CARE 3/75MIN Diagnoses ESRD (end stage renal disease) N18.6 Acute hyperkalemia E87.5 Volume overload E87.70 Chest pain R07.9 Hypertension I10 Anemia due to chronic kidney disease N18.9; D63.1 Gall bladder stones K80.20
--- NOTE | 2022-09-26 13:39 | Electrocardiogram Report ---
Test Reason : Blood Pressure : / mmHG Vent. Rate : 074 BPM Atrial Rate : 074 BPM P-R Int : 170 ms QRS Dur : 112 ms QT Int : 422 ms P-R-T Axes : 036 119 192 degrees QTc Int : 468 ms Suspect arm lead reversal, interpretation assumes no reversal Normal sinus rhythm Possible Left atrial enlargement Left posterior fascicular block Septal infarct (cited on or before 18-MAR-2022) Abnormal ECG When compared with ECG of 19-MAR-2022 05:17, Left posterior fascicular block is now Present ST now depressed in Inferior leads Inverted T waves have replaced nonspecific T wave abnormality in Inferior leads Confirmed by Klaus Moses ([id number]) on 09/26/2022 1:39:12 PM Referred By: REFERRED SELF Confirmed By:Klaus Moses
[2022-09-26] MEDS ORDERED: traMADol HCL 50 MG TABLET PO STA (16:45)
--- NOTE | 2022-09-26 16:46 | Communication Note ---
Date of Service: September 26, 2022
[2022-09-26] MEDS: CARBOHYDRATES FOR HYPOGLYCEMIA PO PRN (20:19)
[2022-09-26] MEDS: amLODIPine BESYLATE 5 MG TAB PO SCH (20:29)
[2022-09-26] MEDS: ISOSORBIDE MONO EXTENDED REL 30 MG TABCR PO SCH (20:30)
[2022-09-26] MEDS: ATORVASTATIN 20 MG TAB PO SCH (20:30)
[2022-09-27] MEDS: HEPARIN SOD 5,000 UNIT/0.5 ML VIAL SQ SCH ×3 (05:43→21:21)
[2022-09-27] MEDS: CALCIUM ACETATE 667 MG CAP/TAB PO SCH ×3 (07:54→16:58)
[2022-09-27] MEDS: ASPIRIN 81 MG ECTAB PO SCH (07:55)
[2022-09-27] MEDS: carvediloL 25 MG TAB PO SCH ×2 (07:55→16:58)
[2022-09-27] MEDS: NEPHROCAPS PO SCH (07:55)
[2022-09-27] MEDS: DOCUSATE SODIUM/SENNA 50/8.6MG TAB PO SCH ×2 (07:56→21:19)
[2022-09-27] MEDS: cloNIDine HCL 0.1 MG TAB PO SCH ×2 (07:56→21:18)
[2022-09-27] MEDS: INSULIN ASPART PER UNIT CHARGE SC SCH ×4 (08:01→21:16)
[2022-09-27] MEDS ORDERED: EPOETIN ALFA 20,000 UNITS/ML VIAL IV ONE (09:00)
[2022-09-27] MEDS ORDERED: LANTUS PER UNIT CHARGE SQ SCH ×2 (09:00→21:00)
[2022-09-27 09:49] LABS: BUN Creatinine Ratio 8.6 (10-20); Calcium 9.5 mg/dl (8.6-10.3); Creatinine Clr Calc Pharmacy 9.6 ml/min; Est GFR (African American) 6.1 ml/min; Est GFR (Non-African American) 5.3 ml/min; Potassium 6.6 mmol/L (3.5-5.1)
[2022-09-27 10:51] LABS: Estimated Average Glucose 192 mg/dl; Hemoglobin A1C 8.3 % (4.5-5.6)
--- NOTE | 2022-09-27 13:14 | Nephrology Progress Note ---
Date of Service September 27, 2022 Assessment & Plan (1) ESRD (end stage renal disease): (2) Acute hyperkalemia: (3) Volume overload: (4) Chest pain: (5) Hypertension: (6) Anemia due to chronic kidney disease: (7) Gall bladder stones: Plan 37-year-old male with end-stage renal disease on hemodialysis admitted with CP and abdominal pain. chest x-ray showed bilateral pleural effusion and pulmonary vascular congestion. EKG and cardiac enzymes were unremarkable. CT abdomen pe lvis with ascites and gallstones without cholecystitis. Lab showed hyperkalemia, potassium slightly improved with the Yaneth. Volume overloaded however blood pressure control and respiratory status acceptable. -- Continue dialysis for 4 hours today, he is volume overloaded but the weight has been measured inaccurately, will plan for 3 L UF if tolerated as his last treatment was incomplete -- advised to strictly follow low-potassium diet,, fluid restriction to <1.2 L/d --phosphate binder with meals --will give Epogen 81761 units x1 dose on 09/27/22 --dose medications for GFR less than 10 Will Follow Admission and Anticipated Discharge Date Admission Date: September 26, 2022 Scott Saldivar was seen and examined during dialysis this morning. Overall he was tolerating dialysis well, no dizziness or lightheadedness. Continues to have some mild abdominal discomfort but able to tolerate p.o. intake. Review of Systems Review of Systems: detailed review of system was otherwise unremarkable. Physical Exam Constitutional: WD/WN, vitals as above no acute distress Eyes: + anicteric sclerae Neck: normal visual inspection Respiratory: no respiratory distress Auscultation: + diminished lung sounds and + rales Cardiovascular: Rate/Rhythm: regular rate and regular rhythm Heart Sounds: normal S1 and normal S2 Extremities: no edema Musculoskeletal: Extremities: extremities normal to inspection Skin: normal turgor; no rashes Neurologic: no focal motor deficits Psychiatric: Orientation: alert and oriented x 3 Affect: euthymic affect Results & Data Vital Signs (Past 12 Hours) Vital Signs Temp Pulse Pulse Pulse Resp BP BP 09/27/22 11:30 70 169/93 H 09/27/22 11:00 68 159/94 H 09/27/22 10:30 68 154/84 H 09/27/22 10:00 68 142/81 H 09/27/22 09:30 68 144/81 H 09/27/22 09:00 68 141/79 H 09/27/22 08:55 36.3 C L 70 09/27/22 08:59 09/27/22 08:32 69 09/27/22 08:07 36.6 C 72 16 148/79 H 09/27/22 03:32 37.0 C 71 18 146/82 H Pulse Ox O2 Del Method O2 Flow Rate 09/27/22 11:30 09/27/22 11:00 09/27/22 10:30 09/27/22 10:00 09/27/22 09:30 09/27/22 09:00 09/27/22 08:55 09/27/22 08:59 Nasal Cannula 2 09/27/22 08:32 09/27/22 08:07 97 Nasal Cannula 3 09/27/22 03:32 93 Nasal Cannula 2 PG Care Time/CCT Total # of Minutes Spent Total Time Spent with Patient: Total time spent is greater than 50% in coordination of care (as documented) at patient's floor/unit and/or counseling patient: Coding Level of Care Code 81935 SUB INP/OBS CARE 3/50MIN Diagnoses ESRD (end stage renal disease) N18.6 Acute hyperkalemia E87.5 Volume overload E87.70 Chest pain R07.9 Hypertension I10 Anemia due to chronic kidney disease N18.9; D63.1 Gall bladder stones K80.20
--- NOTE | 2022-09-27 14:30 | Ultrasound Report ---
ABDOMINAL ULTRASOUND, RIGHT UPPER QUADRANT HISTORY: Right upper quadrant abdominal pain. COMPARISON: Abdomen and pelvis CT 09/26/2022. FINDINGS: Pancreas: The pancreas demonstrates a normal echotexture. Liver: No hepatic masses. Small amount of perihepatic fluid. Gallbladder: Mildly distended. There are few stones within the gallbladder with the largest near the neck measuring 1 cm. The gallbladder wall is edematous along the hepatic surface. This measures up to 5 mm in thickness. There is a negative sonographic Bolton sign. CBD: 5 mm. Right kidney: No hydronephrosis. Miscellaneous: A small right pleural effusion is noted. IMPRESSION: 1. Cholelithiasis. There is thickening of the gallbladder wall along the hepatic surface which is lik tyler due to the patient's diffuse edematous state rather than an acute cholecystitis. 2. Small right pleural effusion and a small amount of perihepatic ascites persists. 3. Normal caliber common bile duct. ACT 112: Negative or not required by law. Electronically signed by: Bandar Drake M.D. 09/27/2022 2:29 PM
[2022-09-27] MEDS: ATORVASTATIN 20 MG TAB PO SCH (21:19)
[2022-09-27] MEDS: amLODIPine BESYLATE 5 MG TAB PO SCH (21:20)
[2022-09-27] MEDS: ISOSORBIDE MONO EXTENDED REL 30 MG TABCR PO SCH (21:20)
--- NOTE | 2022-09-27 22:08 | Hospitalist Progress Note ---
Date of Service September 27, 2022 Assessment & Plan (1) Volume overload: Plan: He has not been able to complete dialysis in the last few session due to abdominal pain during dialysis CXR showed cardiomegaly and mild pulmonary edema. Nephro on board Pt had HD done today Continue monitor closely Hyperkalemia Related to ESRD Potassium 6.6 today Just came back from HD ESRD HD on Tuesday, Tuesday and Tuesday Nephrology on board Patient was able to complete dialysis today No abdominal pain during dialysis Continue monitor electrolyte Abdominal pain CT abdomen/pelvis showed small volume ascites and trace bilateral pleural e ffusions. Cholelithiasis. Will get an U/S of the gallbladder Currently denies any pain Anemia Hemoglobin 9 on admission, 8.7 today Continue Monitor CBC HYPERTENSION Continue Imdur, Coreg, amlodipine and clonidine Continue monitor BP DIABETES TYPE 1 Most recent hemoglobin A1c 8.3 Continue Novolog sliding scale and lantus Continue monitor BS HISTORY OF SEIZURE Associated with cardiac arrest episode stable DVT prophylaxis on heparin subcu Code Status Full code Admission and Anticipated Discharge Date Admission Date: September 26, 2022 Subjective Patient was seen and evaluated for follow-up Lying in bed with no acute distress Patient said he was okay during dialysis today. He did not have any abdominal discomfort Denies any chest pain, palpitation, dizziness, shortness of breath. Review of Systems Review of Systems: All systems reviewed & are unremarkable except as noted in Subjective Physical Exam Physical Exam: General- No acute distress Head- atraumatic Eyes- PERRL, EOMI, ENT- oropharynx clear Neck- supple, no JVD Lungs- clear to auscultation Heart- regular rhythm; no murmur Abdomen- normal bowel sounds, soft, nontender Extremities- no calf tenderness Neuro- alert, oriented x 3; PERRL, EOMI; no facial palsy; no dysarthria Skin- warm & dry Results & Data Results & Data Vital Signs (Past 12 Hours) Vital Signs Temp Pulse Pulse Resp BP BP Pulse Ox 09/27/22 20:02 36.9 C 75 20 160/98 H 92 09/27/22 17:06 76 09/27/22 15:37 36.9 C 74 16 155/85 H 95 09/27/22 12:30 75 174/93 H 09/27/22 13:20 36.5 C 75 174/96 H 09/27/22 12:00 79 169/94 H 09/27/22 11:30 70 169/93 H 09/27/22 11:00 68 159/94 H 09/27/22 10:30 68 154/84 H O2 Del Method O2 Flow Rate 09/27/22 20:02 Nasal Cannula 2 09/27/22 17:06 09/27/22 15:37 Nasal Cannula 2 09/27/22 12:30 09/27/22 13:20 09/27/22 12:00 09/27/22 11:30 09/27/22 11:00 09/27/22 10:30
[2022-09-27] MEDS: NICOTINE 14 MG/24 HR PATCH TD SCH (23:48)
[2022-09-28] MEDS: HEPARIN SOD 5,000 UNIT/0.5 ML VIAL SQ SCH ×3 (05:50→20:10)
[2022-09-28] MEDS ORDERED: INSULIN ASPART PER UNIT CHARGE SC ONE (07:47)
[2022-09-28] MEDS ORDERED: LANTUS PER UNIT CHARGE SQ ONE (07:47)
[2022-09-28] MEDS: ASPIRIN 81 MG ECTAB PO SCH (08:19)
[2022-09-28] MEDS: CALCIUM ACETATE 667 MG CAP/TAB PO SCH ×3 (08:19→17:08)
[2022-09-28] MEDS: carvediloL 25 MG TAB PO SCH ×2 (08:20→17:05)
[2022-09-28] MEDS: NEPHROCAPS PO SCH (08:20)
[2022-09-28] MEDS: DOCUSATE SODIUM/SENNA 50/8.6MG TAB PO SCH ×2 (08:20→20:07)
[2022-09-28] MEDS: cloNIDine HCL 0.1 MG TAB PO SCH ×2 (08:20→20:08)
[2022-09-28] MEDS: LANTUS PER UNIT CHARGE SQ SCH (08:25)
[2022-09-28] MEDS: INSULIN ASPART PER UNIT CHARGE SC SCH ×4 (08:25→20:07)
--- NOTE | 2022-09-28 10:42 | Surgery Consultation ---
Date of Consultation September 28, 2022 Assessment & Plan (1) Gall bladder stones: This is a 37yM with a PMH significant for CAD s/p CABG in 2018, DM1, ESRD on HD, PAD who presented to the [facility] ED on 09/26/22 with what he describes as constipation. He is currently being managed for volume overload by the hospitalists. Today we have been consulted for evaluation of the gallbladder as the patient has been dealing with abdominal pain over the past couple of months. He underwent a CT a/p showed evidence of cholelithiasis without mention of cholecystitis with small volume ascites. RUQ US obtained confirmed + cholelithiasis with gallbladder wall thickening likely related to the patient's diffuse edematous state rather than an acute cholecystitis. LFTs were normal on admission and last WBC on 09/26 was 8.4. He is currently on a diet and tolerating this without issues. He has no RUQ abdominal pain or nausea/vomiting. No evidence at this time for cholecystitis on imaging, labs, or abdominal exam. Likely related to constipation and fluid overload. If ongoing concerns may consider a HIDA scan for further workup, but not necessary at this time from our standpoint. No plans for surgical intervention, but call back if questions/concerns. Supervising Physician Co-Signing Physician Notes I personally saw and evaluated the patient with Deedee Ingram PA-C and agree with the assessment and plan. 37-year-old male with cholelithiasis, fluid overload, hyperkalemia Ultrasound and CT images were personally reviewed by myself, he does have gallstones but no other signs of cholecystitis Clinically he is tolerating a diet It is unlikely has acute cholecystitis, based on his current imaging and clinical picture We will keep him on a diet and start a bowel regimen as I think most of his pain is related to his chronic constipation Surgical sign off at this time, please call with any questions or concerns History of Present Illness Reason for Consultation: Cholelithiasis, gallbladder wall thickening Attending Physician: Tyler Parker MD History of Present Illness This is a 37yM with a PMH significant for CAD s/p CABG in 2018, DM1, ESRD on HD, PAD who presented to the [facility] ED on 09/26/22 with what he describes as constipation. He said he went to his normal dialysis session where he felt uncomfortable with constipation and pain radiating to his back, he was unable to tolerate sitting for the session. He was since admitted under the hospitalist service who is managing him for volume overload. Today we have been consulted for evaluation of the gallbladder as the patient has been dealing with abdominal pain over the past couple of months. He underwent a CT a/p showed evidence of cholelithiasis without mention of cholecystitis with small volume ascites. RUQ US obtained confirmed + cholelithiasis with gallbladder wall thickening likely related to the patient's diffuse edematous state rather than an acute cholecystitis. He states the abdominal pain is mostly present in the mid/upper abdomen. This is not associated with any nausea/vomiting, fevers/chills. He is tolerating a diet without issues. Reports the pain usually seems worse when he is constipated and/or feels like he is holding onto fluid. He never had surgery on his abdomen before. He currently complains of constipation, but last one is documented in system is from 09/26. Allergies Allergy/AdvReac Type Severity Reaction Status Date / Time clopidogrel [From Plavix] Allergy Severe itching Verified 09/20/22 10:28 Home Medications Medication Instructions Recorded Confirmed Type acetaminophen 325 mg tablet 650 mg PO Q4H PRN Pain (Scale 09/30/19 09/25/22 History (Tylenol) Score 1-3) atorvastatin 20 mg tablet 20 mg PO HS 09/30/19 09/25/22 History carvedilol 25 mg tablet 25 mg PO BIDM 09/30/19 09/25/22 History heparin (porcine) 1,000 unit/mL 1,000 unit IV DIRECTED PRN 09/30/19 09/25/22 History injection solution DIALYSIS insulin glargine 100 unit/mL 12 unit subcut HS 09/30/19 09/26/22 History subcutaneous solution (Lantus U-100 Insulin) insulin regular human 100 unit/mL 1 sliding scale dose subcut TIDM 09/30/19 09/25/22 History injection solution (Humulin R Regular U-100 Insulin) iron sucrose 100 mg iron/5 mL 100 mg IV WK PRN DIALYSIS 09/30/19 09/25/22 History intravenous solution (Venofer) isosorbide mononitrate 30 mg 30 mg PO QPM 09/30/19 09/25/22 History tablet,extended release 24 hr sodium chloride 0.9 % 1,000 ml IV DIRECTED PRN 09/30/19 09/25/22 History DIALYSIS calcium acetate(phosphat bind) 667 1,334 mg PO TIDM 04/07/22 09/25/22 History mg capsule aspirin 81 mg tablet,delayed 81 mg PO DAILY #30 tabs 05/24/22 09/25/22 Rx release (Adult Aspirin Regimen) clonidine HCl 0.2 mg tablet 0.2 mg PO BID 07/12/22 09/26/22 History benzonatate 100 mg capsule 100 mg PO TID PRN Cough 07/27/22 09/25/22 History vitamin B complex and vitamin C See Rx Instructions .Route 08/23/22 09/25/22 Rx no.20-folic acid 1 mg capsule .COMPLEX #90 caps (Triphrocaps) amlodipine 10 mg tablet 10 mg PO QPM #90 tabs 09/22/22 09/25/22 Rx Patient History Medical History Anemia due to chronic kidney disease Gall bladder stones History of convulsions Found on the floor "convulsing" years ago, no definite etiology/no seizure diagnosis, no issues since Macular degeneration Family History Mother Family history of diabetes mellitus Kidney disease Father Family history of diabetes mellitus Kidney disease Social History Smoking Status: Current every day smoker Tobacco Type: Cigarettes Age Started Using Tobacco: 11; packs per day: 1; Cigarettes Per Day: less than 1 pack; Second Hand Exposure: No; Tobacco Cessation Education Requested by Patient: No Hx Alcohol Use: No Hx Substance Use: No Preferred Language: Liberian Communication Ability: Effective Hearing Ability: Normal Engraver Block Required: No Beliefs That Will Affect Care: None marital status: Single Current Living Situation: Alone Other Information That Helps Us Care for You: No other: Patient does have anyone to help with dressings Feels Safe at Home: Yes Safety Concerns: Feels Safe At This Time Diet Comment: Renal Assistive Devices: Glasses and Oxygen - Continuous Review of Systems Constitutional: no fever, no chills and no anorexia Cardiovascular: no chest pain Gastrointestinal: + abdominal pain (mid/upper abdomen); no nausea and no vomiting + flatus Physical Exam Physical Exam: awake/alert, no distress Respiratory: normal respiratory effort Gastrointestinal (Abdomen): Inspection/Auscultation: abdomen not distended Percussion/Palpation: + abdomen tender (mild discomfort in mid/upper abdomen. no RUQ pain) and abdomen soft Results & Data Vital Signs (Past 12 Hours) Vital Signs Temp Pulse Pulse Pulse Resp BP Pulse Ox 09/28/22 08:11 36.7 C 68 16 160/96 H 95 09/28/22 00:00 75 09/28/22 02:32 36.5 C 62 18 150/81 H 95 09/27/22 22:57 36.5 C 73 18 154/89 H 95 O2 Del Method O2 Flow Rate 09/28/22 08:11 Nasal Cannula 1.5 09/28/22 00:00 09/28/22 02:32 Nasal Cannula 2 09/27/22 22:57 Nasal Cannula 2 Diagnostic Findings Exam(s): CT ABDOMEN + PELVIS Without Contrast EXAM: CT Abdomen and Pelvis Without Intravenous Contrast CLINICAL HISTORY: Reason for exam: abd pain. TECHNIQUE: Axial computed tomography images of the abdomen and pelvis without intravenous contrast. Automated exposure control was utilized for the study. A dose lowering technique was utilized adhering to the principles of ALARA. COMPARISON: Dated 03/18/22 FINDINGS: Lung bases: Unremarkable. No mass. No consolidation. Pleural space: Trace bilateral pleural effusions. ABDOMEN: Liver: Unremarkable. Gallbladder and bile ducts: There is cholelithiasis within an otherwise normal gallbladder. No ductal dilation. Pancreas: Unremarkable. No ductal dilation. Spleen: Unremarkable. No splenomegaly. Adrenals: Unremarkable. No mass. Kidneys and ureters: Unremarkable. No obstructing stones. No hydronephrosis. Stomach and bowel: Unremarkable. No obstruction. No mucosal thickening. PELVIS: Appendix: No findings to suggest acute appendicitis. Bladder: Unremarkable. No stones. Reproductive: Unremarkable as visualized. ABDOMEN and PELVIS: Intraperitoneal space: There is small volume ascites. No free air. Bones/joints: No acute fracture. No dislocation. Soft tissues: Unremarkable. Vasculature: There is extensive severe atherosclerotic disease. No abdominal aortic aneurysm. Lymph nodes: Unremarkable. No enlarged lymph nodes. IMPRESSION: 1. Small volume ascites and trace bilateral pleural effusions. 2. Advanced atherosclerotic disease. 3. Cholelithiasis. Electronically signed by: Placido Read MD 09/26/22 00:55 AM ABDOMINAL ULTRASOUND, RIGHT UPPER QUADRANT HISTORY: Right upper quadrant abdominal pain. COMPARISON: Abdomen and pelvis CT 09/26/2022. FINDINGS: Pancreas: The pancreas demonstrates a normal echotexture. Liver: No hepatic masses. Small amount of perihepatic fluid. Gallbladder: Mildly distended. There are few stones within the gallbladder with the largest near the neck measuring 1 cm. The gallbladder wall is edematous along the hepatic surface. This measures up to 5 mm in thickness. There is a negative sonographic Bolton sign. CBD: 5 mm. Right kidney: No hydronephrosis. Miscellaneous: A small right pleural effusion is noted. IMPRESSION: 1. Cholelithiasis. There is thickening of the gallbladder wall along the hepatic surface which is likely due to the patient's diffuse edematous state rather than an acute cholecystitis. 2. Small right pleural effusion and a small amount of perihepatic ascites persists. 3. Normal caliber common bile duct. ACT 112: Negative or not required by law. Electronically signed by: Bandar Drake M.D. 09/27/2022 2:29 PM PG Care Time/CCT Total # of Minutes Spent Total Time Spent with Patient: Total time spent is greater than 50% in coordination of care (as documented) at patient's floor/unit and/or counseling patient: Coding Level of Care Code 66447 INT INP/OBS CARE 2/55MIN Diagnoses Gall bladder stones K80.20
[2022-09-28] MEDS ORDERED: POLYETHYLENE (MIRALAX) 17 GM PACK PO ONE (13:32)
--- NOTE | 2022-09-28 14:04 | Nephrology Progress Note ---
Date of Service September 28, 2022 Assessment & Plan (1) ESRD (end stage renal disease): (2) Acute hyperkalemia: (3) Volume overload: (4) Chest pain: (5) Hypertension: (6) Anemia due to chronic kidney disease: (7) Gall bladder stones: Plan 37-year-old male with end-stage renal disease on hemodialysis admitted with CP and abdominal pain. chest x-ray showed bilateral pleural effusion and pulmonary vascular congestion. EKG and cardiac enzymes were unremarkable. CT abdomen pe lvis with ascites and gallstones without cholecystitis. blood pressure, electrolyte acceptable. Slightly volume overloaded but lying comfortably, no respiratory distress. The -- dialysis tomorrow as regular schedule, UF 3 L with a goal to reach estimated dry weight. -- advised to strictly follow low-potassium diet,, fluid restriction to <1.2 L/d --phosphate binder with meals -- Epogen 36008 units x1 dose on 09/27/22 --dose medications for GFR less than 10 Will Follow Admission and Anticipated Discharge Date Admission Date: September 26, 2022 Scott Saldivar was seen and examined this morning, his still, planes of some abdominal discomfort and reports no bowel movement for last 2 days. Dialysis yesterday, tolerated well, had 3 L UF. Blood pressure better, electrolyte acceptable. Review of Systems Review of Systems: detailed review of system was otherwise unremarkable. Physical Exam Constitutional: WD/WN, vitals as above no acute distress Eyes: + anicteric sclerae Neck: normal visual inspection Respiratory: no respiratory distress Auscultation: + diminished lung sounds and + rales Cardiovascular: Rate/Rhythm: regular rate and regular rhythm Heart Sounds: normal S1 and normal S2 Extremities: no edema Musculoskeletal: Extremities: extremities normal to inspection Skin: normal turgor; no rashes Neurologic: no focal motor deficits Psychiatric: Orientation: alert and oriented x 3 Affect: euthymic affect Results & Data Vital Signs (Past 12 Hours) Vital Signs Temp Pulse Pulse Pulse Resp BP Pulse Ox 09/28/22 12:06 36.4 C L 67 16 148/87 H 96 09/28/22 12:04 09/28/22 11:30 67 09/28/22 08:11 36.7 C 68 16 160/96 H 95 09/28/22 02:32 36.5 C 62 18 150/81 H 95 O2 Del Method O2 Flow Rate 09/28/22 12:06 Nasal Cannula 1.5 09/28/22 12:04 Nasal Cannula 2 09/28/22 11:30 09/28/22 08:11 Nasal Cannula 1.5 09/28/22 02:32 Nasal Cannula 2 PG Care Time/CCT Total # of Minutes Spent Total Time Spent with Patient: Total time spent is greater than 50% in coordination of care (as documented) at patient's floor/unit and/or counseling patient: Coding Level of Care Code 85631 SUB INP/OBS CARE 2/35MIN Diagnoses ESRD (end stage renal disease) N18.6 Acute hyperkalemia E87.5 Volume overload E87.70 Chest pain R07.9 Hypertension I10 Anemia due to chronic kidney disease N18.9; D63.1 Gall bladder stones K80.20
[2022-09-28 18:08] LABS: BUN Creatinine Ratio 7.8 (10-20); Calcium 9.7 mg/dl (8.6-10.3); Creatinine Clr Calc Pharmacy 13.8 ml/min; Est GFR (African American) 9.8 ml/min; Est GFR (Non-African American) 8.4 ml/min; Potassium 4.9 mmol/L (3.5-5.1)
[2022-09-28] MEDS: CARBOHYDRATES FOR HYPOGLYCEMIA PO PRN (20:01)
[2022-09-28] MEDS: ISOSORBIDE MONO EXTENDED REL 30 MG TABCR PO SCH (20:07)
[2022-09-28] MEDS: amLODIPine BESYLATE 5 MG TAB PO SCH (20:08)
[2022-09-28] MEDS: NICOTINE 14 MG/24 HR PATCH TD SCH (20:10)
[2022-09-28] MEDS: ATORVASTATIN 20 MG TAB PO SCH (20:10)
--- NOTE | 2022-09-29 00:07 | Hospitalist Progress Note ---
Date of Service September 28, 2022 Assessment & Plan (1) Volume overload: Plan: He has not been able to complete dialysis in the last few session due to abdominal pain during dialysis CXR showed cardiomegaly and mild pulmonary edema on admission Nephro on board Plan to hemodialyzed tomorrow Continue monitor closely Hyperkalemia Related to ESRD Potassium 4.9 today Continue monitor BMP ESRD HD on Tuesday, Tuesday and Tuesday Nephrology on board No abdominal pain during dialysis Next hemodialysis tomorrow Continue monitor electrolyte Abdominal pain CT abdomen/pelvis showed small volume ascites and trace bilateral pleural e ffusions. Cholelithiasis. U/S of the gallbladder Cholelithiasis. There is thickening of the gallbladder wall along the hepatic surface which is likely due to the patient's diffuse edematous state rather than an acute cholecystitis. Surgery consulted No plans for surgical intervention Currently denies any pain Constipation He has not have a bowel movement for the last few days Continue stool softener and laxative as needed Anemia Hemoglobin 9 on admission, 8.7 Continue Monitor CBC HYPERTENSION Continue Imdur, Coreg, amlodipine and clonidine Continue monitor BP DIABETES TYPE 1 Most recent hemoglobin A1c 8.3 Continue Novolog sliding scale and lantus Continue monitor BS HISTORY OF SEIZURE Associated with cardiac arrest episode stable DVT prophylaxis on heparin subcu Code Status Full code Disposition Plan to discharge tomorrow Admission and Anticipated Discharge Date Admission Date: September 26, 2022 Subjective Patient was seen and evaluated for follow-up Lying in bed with no acute distress He said that he feels bloated and he has not had a bowel movement for the last few days Denies any chest pain, palpitation, dizziness, shortness of breath. Review of Systems Review of Systems: All systems reviewed & are unremarkable except as noted in Subjective Physical Exam Physical Exam: General- No acute distress Head- atraumatic Eyes- PERRL, EOMI, ENT- oropharynx clear Neck- supple, no JVD Lungs- clear to auscultation Heart- regular rhythm; no murmur Abdomen- normal bowel sounds, soft, nontender Extremities- no calf tenderness Neuro- alert, oriented x 3; PERRL, EOMI; no facial palsy; no dysarthria Skin- warm & dry Results & Data Results & Data Vital Signs (Past 12 Hours) Vital Signs Temp Pulse Pulse Pulse Resp BP Pulse Ox 09/28/22 22:58 36.4 C L 62 16 143/79 H 93 09/28/22 18:44 36.4 C L 61 16 133/73 92 09/28/22 17:01 93 09/28/22 16:16 36.5 C 65 16 152/88 H 96 09/28/22 15:37 65 O2 Del Method O2 Flow Rate 09/28/22 22:58 Room Air 09/28/22 18:44 Room Air 09/28/22 17:01 Room Air 09/28/22 16:16 Nasal Cannula 1.5 09/28/22 15:37
[2022-09-29] MEDS: HEPARIN SOD 5,000 UNIT/0.5 ML VIAL SQ SCH ×2 (05:27→14:45)
[2022-09-29] MEDS ORDERED: EPOETIN ALFA 10,000 UNITS/ML VIAL IV STA (07:54)
[2022-09-29] MEDS: carvediloL 25 MG TAB PO SCH ×2 (08:05→15:53)
[2022-09-29] MEDS: cloNIDine HCL 0.1 MG TAB PO SCH (08:06)
[2022-09-29] MEDS: CALCIUM ACETATE 667 MG CAP/TAB PO SCH ×3 (08:09→15:53)
[2022-09-29] MEDS: DOCUSATE SODIUM/SENNA 50/8.6MG TAB PO SCH (08:09)
[2022-09-29] MEDS: NEPHROCAPS PO SCH (08:10)
[2022-09-29] MEDS: ASPIRIN 81 MG ECTAB PO SCH (08:10)
[2022-09-29] MEDS: LANTUS PER UNIT CHARGE SQ SCH (08:14)
[2022-09-29] MEDS: INSULIN ASPART PER UNIT CHARGE SC SCH ×3 (08:14→17:20)
[2022-09-29 10:01] LABS: Hematocrit (blood only) 25.6 % (42.0-52.0); Hemoglobin 8.3 g/dl (14.0-18.0); Mean Corpuscular Hemoglobin 29.3 pg (25.0-34.0); Mean Corpuscular Hgb Conc 32.4 g/dL (32.0-36.0); Mean Corpuscular Volume 90.5 fL (80.0-100.0); Mean Platelet Volume 10.5 fL (9.4-12.4); Platelet Count 159 K/uL (130-400); RDW Coefficient of Variation 16.5 % (11.5-14.5); RDW Standard Deviation 54.2 fL (36.4-46.3); Red Blood Count 2.83 M/uL (4.70-6.10)
[2022-09-29 10:25] LABS: BUN Creatinine Ratio 8.5 (10-20); Calcium 9.8 mg/dl (8.6-10.3); Creatinine Clr Calc Pharmacy 12.2 ml/min; Est GFR (African American) 8.2 ml/min; Est GFR (Non-African American) 7.1 ml/min; Magnesium 2.1 mg/dl (1.7-2.4); Phosphorus 5.4 mg/dl (2.5-4.9); Potassium 5.6 mmol/L (3.5-5.1)
--- NOTE | 2022-09-29 11:38 | Hospitalist Progress Note ---
Date of Service September 29, 2022 Assessment & Plan (1) Volume overload: Plan: He has not been able to complete dialysis in the last few session due to abdominal pain during dialysis CXR showed cardiomegaly and mild pulmonary edema on admission Nephro consulted S/p HD and UF Pt is feeling much improved Hyperkalemia Related to ESRD s/p HD Continue monitor BMP ESRD HD on Tuesday, Tuesday and Tuesday Nephrology on board No abdominal pain during dialysis Cont. outpt as scheduled Continue monitor electrolytes as outpt Abdominal pain CT abdomen/pelvis showed small volume ascites and trace bilateral pleural effusions. Cholelithiasis. U/S of the gallbladder Cholelithiasis. There is thickening of the gallbladder wall along the hepatic surface which is likely due to the patient's diffuse edematous state rather than an acute cholecystitis. Surgery consulted No plans for surgical intervention Currently denies any pain Constipation stool softener provided , pt had BM and feels improved Anemia Hemoglobin 9 on admission, 8.7 Continue Monitor CBC HYPERTENSION Continue Imdur, Coreg, amlodipine and clonidine Continue monitor BP DIABETES TYPE 1 Most recent hemoglobin A1c 8.3 Continue Novolog sliding scale and lantus Continue monitor BS HISTORY OF SEIZURE Associated with cardiac arrest episode stable DVT prophylaxis on heparin subcu Code Status Full code Disposition - Plan to discharge home Admission and Anticipated Discharge Date Admission Date: September 26, 2022 Subjective Patient seen in follow up of fluid overload in the setting of end-stage renal disease, on dialysis, constipation Currently sitting up in bed in no acute distress Had HD earlier today Denies any chest pain, palpitation, dizziness, shortness of breath. Overall feels better. Review of Systems Review of Systems: All systems reviewed & are unremarkable except as noted in Subjective Physical Exam Physical Exam: General-WD/WN M in no acute distress Head- atraumatic Eyes- PERRL, EOMI Neck- supple, no JVD Lungs- minimal crackles, no wheezing Heart- regular rhythm; no murmur Abdomen- normal bowel sounds, soft, nontender Extremities- no LE edema, moves extremities Neuro- alert, oriented x 3; PERRL, EOMI; no facial palsy; no dysarthria, moves extremities Skin- warm & dry Results & Data Results & Data Vital Signs (Past 12 Hours) Vital Signs Temp Pulse Pulse Pulse Resp BP BP 09/29/22 09:48 36.5 C 66 09/29/22 11:00 66 159/92 H 09/29/22 10:30 65 156/89 H 09/29/22 10:00 66 143/87 H 09/29/22 09:57 65 144/82 H 09/29/22 07:32 36.4 C L 65 16 151/91 H 09/29/22 07:02 63 09/29/22 03:34 36.6 C 64 16 140/78 09/29/22 00:00 64 Pulse Ox O2 Del Method O2 Flow Rate 09/29/22 09:48 09/29/22 11:00 09/29/22 10:30 09/29/22 10:00 09/29/22 09:57 09/29/22 07:32 100 Room Air 09/29/22 07:02 09/29/22 03:34 100 Nasal Cannula 3 09/29/22 00:00 Laboratory Results 09/29/22 09/29/22 09/29/22 Range/Units 09:50 09:50 07:30 WBC 6.30 (4.8-10.8) K/ul RBC 2.83 L (4.70-6.10) M/uL Hgb 8.3 L (14.0-18.0) g/dl Hct 25.6 L (42.0-52.0) % MCV 90.5 (80.0-100.0) fL MCH 29.3 (25.0-34.0) pg MCHC 32.4 (32.0-36.0) g/dL RDW Std Deviation 54.2 H (36.4-46.3) fL RDW Coeff of Hedy 16.5 H (11.5-14.5) % Plt Count 159 (130-400) K/uL MPV 10.5 (9.4-12.4) fL Sodium 131 L (136-145) mmol/L Potassium 5.6 H (3.5-5.1) mmol/L Chloride 93 L (98-107) mmol/L Carbon Dioxide 26 (21-32) mmol/L Anion Gap 12 H (3-11) BUN 73 H (6-23) mg/dl Creatinine 8.54 H* D (0.6-1.4) mg/dl Est Cr Clr Drug Dosing 12.2 ml/min Est GFR ( Amer) 8.2 ml/min Est GFR (Non-Af Amer) 7.1 ml/min BUN/Creatinine Ratio 8.5 L (10-20) Glucose 251 H (70-99(Fasting)) mg/dl POC Glucose 254 H (70-99) mg/dl Calcium 9.8 (8.6-10.3) mg/dl Phosphorus 5.4 H (2.5-4.9) mg/dl Magnesium 2.1 (1.7-2.4) mg/dl 09/29/22 09/28/22 09/28/22 Range/Units 02:26 20:36 19:59 WBC (4.8-10.8) K/ul RBC (4.70-6.10) M/uL Hgb (14.0-18.0) g/dl Hct (42.0-52.0) % MCV (80.0-100.0) fL MCH (25.0-34.0) pg MCHC (32.0-36.0) g/dL RDW Std Deviation (36.4-46.3) fL RDW Coeff of Hedy (11.5-14.5) % Plt Count (130-400) K/uL MPV (9.4-12.4) fL Sodium (136-145) mmol/L Potassium (3.5-5.1) mmol/L Chloride (98-107) mmol/L Carbon Dioxide (21-32) mmol/L Anion Gap (3-11) BUN (6-23) mg/dl Creatinine (0.6-1.4) mg/dl Est Cr Clr Drug Dosing ml/min Est GFR ( Amer) ml/min Est GFR (Non-Af Amer) ml/min BUN/Creatinine Ratio (10-20) Glucose (70-99(Fasting)) mg/dl POC Glucose 173 H 97 59 L* (70-99) mg/dl Calcium (8.6-10.3) mg/dl Phosphorus (2.5-4.9) mg/dl Magnesium (1.7-2.4) mg/dl 09/28/22 09/28/22 09/28/22 Range/Units 19:57 16:28 15:59 WBC (4.8-10.8) K/ul RBC (4.70-6.10) M/uL Hgb (14.0-18.0) g/dl Hct (42.0-52.0) % MCV (80.0-100.0) fL MCH (25.0-34.0) pg MCHC (32.0-36.0) g/dL RDW Std Deviation (36.4-46.3) fL RDW Coeff of Hedy (11.5-14.5) % Plt Count (130-400) K/uL MPV (9.4-12.4) fL Sodium 134 L (136-145) mmol/L Potassium 4.9 D (3.5-5.1) mmol/L Chloride 95 L (98-107) mmol/L Carbon Dioxide 28 (21-32) mmol/L Anion Gap 11 (3-11) BUN 58 H D (6-23) mg/dl Creatinine 7.41 H* D (0.6-1.4) mg/dl Est Cr Clr Drug Dosing 13.8 ml/min Est GFR ( Amer) 9.8 ml/min Est GFR (Non-Af Amer) 8.4 ml/min BUN/Creatinine Ratio 7.8 L (10-20) Glucose 154 H (70-99(Fasting)) mg/dl POC Glucose 62 L* 142 H (70-99) mg/dl Calcium 9.7 (8.6-10.3) mg/dl Phosphorus (2.5-4.9) mg/dl Magnesium (1.7-2.4) mg/dl 09/28/22 Range/Units 11:32 WBC (4.8-10.8) K/ul RBC (4.70-6.10) M/uL Hgb (14.0-18.0) g/dl Hct (42.0-52.0) % MCV (80.0-100.0) fL MCH (25.0-34.0) pg MCHC (32.0-36.0) g/dL RDW Std Deviation (36.4-46.3) fL RDW Coeff of Hedy (11.5-14.5) % Plt Count (130-400) K/uL MPV (9.4-12.4) fL Sodium (136-145) mmol/L Potassium (3.5-5.1) mmol/L Chloride (98-107) mmol/L Carbon Dioxide (21-32) mmol/L Anion Gap (3-11) BUN (6-23) mg/dl Creatinine (0.6-1.4) mg/dl Est Cr Clr Drug Dosing ml/min Est GFR ( Amer) ml/min Est GFR (Non-Af Amer) ml/min BUN/Creatinine Ratio (10-20) Glucose (70-99(Fasting)) mg/dl POC Glucose 247 H (70-99) mg/dl Calcium (8.6-10.3) mg/dl Phosphorus (2.5-4.9) mg/dl Magnesium (1.7-2.4) mg/dl Medications Administered Current Inpatient Medications Acetaminophen (Acetaminophen 325 Mg Tab) 650 mg PO Q4H PRN PRN Reason: Pain (Scale Score 1-3) Stop: 10/26/22 03:44 Acetaminophen/Codeine Phosphate (Acetaminophen W/Codeine #3 1 Tab) 1 tab PO QID PRN PRN Reason: pain not relieved by tylenol Stop: 10/26/22 01:05 Last Admin: 09/26/22 04:32 Dose: 1 tab Amlodipine Besylate (Amlodipine Besylate 5 Mg Tab) 10 mg PO QPM JANAK Stop: 10/26/22 20:59 Last Admin: 09/28/22 20:08 Dose: 10 mg Aspirin (Aspirin 81 Mg Ectab) 81 mg PO DAILY JANAK Stop: 10/26/22 08:59 Last Admin: 09/29/22 08:10 Dose: 81 mg Atorvastatin Calcium (Atorvastatin 20 Mg Tab) 20 mg PO HS JANAK Stop: 10/26/22 20:59 Last Admin: 09/28/22 20:10 Dose: 20 mg Calcium Acetate (Calcium Acetate 667 Mg Cap/Tab) 1,334 mg PO TIDM JANAK Stop: 10/26/22 07:59 Last Admin: 09/29/22 11:23 Dose: Not Given Carvedilol (Carvedilol 25 Mg Tab) 25 mg PO BIDM JANAK Stop: 10/26/22 07:59 Last Admin: 09/29/22 08:05 Dose: Not Given Clonidine HCl (Clonidine Hcl 0.1 Mg Tab) 0.2 mg PO BID JANAK Stop: 10/26/22 08:59 Last Admin: 09/29/22 08:06 Dose: Not Given Dextrose (Dextrose 50% 50 Ml Syringe) 25 - 50 ml IV UD PRN; Protocol PRN Reason: Hypoglycemia Protocol Stop: 10/26/22 03:44 Glucagon (Glucagon For Inj 1 Mg Vial) 1 mg SQ UD PRN; Protocol PRN Reason: Hypoglycemia Protocol Stop: 10/26/22 03:44 Glucose (Glucose 10 Tab/Tube) 4 - 8 tab PO UD PRN; Protocol PRN Reason: Hypoglycemia Treatment Stop: 10/26/22 03:44 Glucose (Glucose 40% Gel 15 Gm Tube) 15 - 30 gm PO UD PRN; Protocol PRN Reason: Hypoglycemia Protocol Stop: 10/26/22 03:44 Heparin Sodium (Porcine) (Heparin Sod 5,000 Unit/0.5 Ml Vial) 5,000 units SQ Q8 JANAK Stop: 10/26/22 05:59 Last Admin: 09/29/22 05:27 Dose: Not Given Promethazine HCl 6.25 mg/ (Sodium Chloride) 50.25 mls @ 201 mls/hr IV Q6H PRN PRN Reason: Nausea And Vomiting Stop: 10/26/22 01:05 Insulin Aspart (Insulin Aspart Per Unit Charge) 0 units SC ACHS JANAK Stop: 10/27/22 11:29 Last Admin: 09/29/22 11:22 Dose: Not Given Insulin Glargine (Lantus Per Unit Charge) 5 units SQ DAILY JANAK Stop: 10/28/22 08:59 Last Admin: 09/29/22 08:14 Dose: 5 units Isosorbide Mononitrate (Isosorbide [place] Extended Rel 30 Mg Tabcr) 30 mg PO QPM JANAK Stop: 10/26/22 20:59 Last Admin: 09/28/22 20:07 Dose: 30 mg Miscellaneous (Carbohydrates For Hypoglycemia ) 15 - 30 gm PO UD PRN PRN Reason: Hypoglycemia Protocol Stop: 10/26/22 03:44 Last Admin: 09/28/22 20:01 Dose: 15 gm Miscellaneous (Remove Nicoderm Patch) 1 each N/A DAILY@2158 [facility] Stop: 10/28/22 21:58 Last Admin: 09/28/22 20:11 Dose: 1 each Nicotine (Nicotine 14 Mg/24 Hr Patch) 14 mg TD HS [facility] Stop: 10/27/22 23:14 Last Admin: 09/28/22 20:10 Dose: 14 mg Senna/Docusate Sodium (Docusate Sodium/Senna 50/8.6mg Tab) 1 tab PO BID JANAK Stop: 10/26/22 08:59 Last Admin: 09/29/22 08:09 Dose: 1 tab Vitamin B Complex/Folic Acid (Nephrocaps) 1 cap PO DAILY JANAK Stop: 10/26/22 08:59 Last Admin: 09/29/22 08:10 Dose: 1 cap
--- NOTE | 2022-09-29 15:26 | Nephrology Progress Note ---
Date of Service September 29, 2022 Assessment & Plan (1) ESRD (end stage renal disease): (2) Acute hyperkalemia: (3) Volume overload: (4) Chest pain: (5) Hypertension: (6) Anemia due to chronic kidney disease: (7) Gall bladder stones: Plan 37-year-old male with end-stage renal disease on hemodialysis admitted with CP and abdominal pain. chest x-ray showed bilateral pleural effusion and pulmonary vascular congestion. EKG and cardiac enzymes were unremarkable. CT abdomen pe lvis with ascites and gallstones without cholecystitis. blood pressure high , electrolyte acceptable. Slightly volume overloaded, no respiratory distress. -- dialysis today as regular schedule, UF 4.5 L with a goal to reach estimated dry weight. -- advised to strictly follow low-potassium diet,, fluid restriction to <1.2 L/d --phosphate binder with meals -- Epogen 05264 units x1 dose given on 09/27/22 --dose medications for GFR less than 10 Will Follow Admission and Anticipated Discharge Date Admission Date: September 26, 2022 Scott Saldivar was seen and examined this morning while on dialysis, still has some abdominal discomfort. Dialysis yesterday, tolerating HD aim for 4.5 L to reach EDW. Blood pressure elevated, electrolyte acceptable. Review of Systems Review of Systems: detailed review of system was otherwise unremarkable. Physical Exam Constitutional: WD/WN, vitals as above no acute distress Eyes: + anicteric sclerae Neck: normal visual inspection Respiratory: no respiratory distress Auscultation: + diminished lung sounds and + rales Cardiovascular: Rate/Rhythm: regular rate and regular rhythm Heart Sounds: normal S1 and normal S2 Extremities: no edema Musculoskeletal: Extremities: extremities normal to inspection Skin: normal turgor; no rashes Neurologic: no focal motor deficits Psychiatric: Orientation: alert and oriented x 3 Affect: euthymic affect Results & Data Vital Signs (Past 12 Hours) Vital Signs Temp Pulse Pulse Pulse Resp BP BP 09/29/22 15:18 36.5 C 73 18 165/83 H 09/29/22 14:34 36.5 C 73 18 155/100 H 09/29/22 14:01 36.5 C 71 174/90 H 09/29/22 13:30 67 169/91 H 09/29/22 13:00 68 173/96 H 03/29/23 12:30 68 168/91 H 09/29/22 12:00 68 162/90 H 09/29/22 11:30 67 166/93 H 09/29/22 09:48 36.5 C 66 09/29/22 11:00 66 159/92 H 09/29/22 10:30 65 156/89 H 09/29/22 10:00 66 143/87 H 09/29/22 09:57 65 144/82 H 09/29/22 07:32 36.4 C L 65 16 151/91 H 09/29/22 07:02 63 09/29/22 03:34 36.6 C 64 16 140/78 Pulse Ox O2 Del Method O2 Flow Rate 09/29/22 15:18 95 Room Air 09/29/22 14:34 94 Room Air 09/29/22 14:01 09/29/22 13:30 09/29/22 13:00 09/29/22 12:30 09/29/22 12:00 09/29/22 11:30 09/29/22 09:48 09/29/22 11:00 09/29/22 10:30 09/29/22 10:00 09/29/22 09:57 09/29/22 07:32 100 Room Air 09/29/22 07:02 09/29/22 03:34 100 Nasal Cannula 3 PG Care Time/CCT Total # of Minutes Spent Total Time Spent with Patient: Total time spent is greater than 50% in coordination of care (as documented) at patient's floor/unit and/or counseling patient: Coding Level of Care Code 44648 SUB INP/OBS CARE 3/50MIN Diagnoses ESRD (end stage renal disease) N18.6 Acute hyperkalemia E87.5 Volume overload E87.70 Chest pain R07.9 Hypertension I10 Anemia due to chronic kidney disease N18.9; D63.1 Gall bladder stones K80.20
[2022-09-29] MEDS ORDERED: DOCUSATE SODIUM 100 MG CAP PO ONE (15:35)
--- NOTE | 2022-09-29 16:01 | Discharge Summary ---
Date of Service September 29, 2022 Admission HPI Per Admitting Provider History obtained from patient and records. Medical history significant for chronic systolic heart failure secondary to ischemic cardiomyopathy (EF 35 to 39%, TTE 2021 ), CAD status post CABG, HTN, borderline pulm hypertension, hyperlipidemia, DM 1, ESRD on HD, chronic anemia (baseline hemoglobin 9-10), past history of toxoplasmosis as per records, ongoing tobacco abuse. Last confinement March 2022 for hypoxemic respiratory failure secondary to volume overload secondary to missed hemodialysis. 2 weeks history of achy abdominal pain and constipation symptoms. Somewhat unusual as per patient. No fever, no chills. No response to OTC laxatives. 2 days ago, patient unable to finish outpatient hemodialysis secondary to abdominal discomfort. Patient noted worsening abdominal distention, fluid retention and shortness of breath yesterday. No cough symptoms. Abdominal pain going to the chest. Shortness of breath from not being able to take deep breath from abdominal distention as per patient. Patient consulted ER. IV insulin administered for hyperkalemia. 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 Admission Exam Per Admitting Provider GENERAL: Slightly uncomfortable, sallow, looks older than stated age, no respiratory distress SKIN: Sallow, warm HEENT: bespectacled, pale palpebral conjunctivae, no ptosis, dry buccal mucosa NECK : Supple, no tenderness CHEST : CTA, no tenderness HEART : RRR, no obvious murmurs ABDOMEN: Some distention, minimal central abdominal tenderness EXTREMITIES : Minimal LE swelling, no LE tenderness, no other conspicuous deformities noted NEUROLOGIC : Coherent, no facial asymmetry, no other gross focality Principal Diagnosis Fluid overload, in the setting of end-stage renal disease, on dialysis Constipation Discharge Exam General-WD/WN M in no acute distress Head- atraumatic Eyes- PERRL, EOMI Neck- supple, no JVD Lungs- minimal crackles, no wheezing Heart- regular rhythm; no murmur Abdomen- normal bowel sounds, soft, nontender Extremities- no LE edema, moves extremities Neuro- alert, oriented x 3; PERRL, EOMI; no facial palsy; no dysarthria, moves extremities Skin- warm & dry Discharge Data Allergies Allergy/AdvReac Type Severity Reaction Status Date / Time clopidogrel [From Plavix] Allergy Severe itching Verified 09/20/22 10:28 Consultations 09/25/22 23:52 ED Decision to Admit Stat 09/26/22 03:45 Consult Nephrology Routine 09/28/22 09:39 Consult General Surgery Routine Ordered Studies 09/25/22 23:49 CT Abd and Pelvis [CT abd pelvis wo con] Stat FINDINGS: Lung bases: Unremarkable. No mass. No consolidation. Pleural space: Trace bilateral pleural effusions. ABDOMEN: Liver: Unremarkable. Gallbladder and bile ducts: There is cholelithiasis within an otherwise normal gallbladder. No ductal dilation. Pancreas: Unremarkable. No ductal dilation. Spleen: Unremarkable. No splenomegaly. Adrenals: Unremarkable. No mass. Kidneys and ureters: Unremarkable. No obstructing stones. No hydronephrosis. Stomach and bowel: Unremarkable. No obstruction. No mucosal thickening. PELVIS: Appendix: No findings to suggest acute appendicitis. Bladder: Unremarkable. No stones. Reproductive: Unremarkable as visualized. ABDOMEN and PELVIS: Intraperitoneal space: There is small volume ascites. No free air. Bones/joints: No acute fracture. No dislocation. Soft tissues: Unremarkable. Vasculature: There is extensive severe atherosclerotic disease. No abdominal aortic aneurysm. Lymph nodes: Unremarkable. No enlarged lymph nodes. IMPRESSION: 1. Small volume ascites and trace bilateral pleural effusions. 2. Advanced atherosclerotic disease. 3. Cholelithiasis. 09/27/22 07:59 US gallbladder Routine IMPRESSION: 1. Cholelithiasis. There is thickening of the gallbladder wall along the hepatic surface which is likely due to the patient's diffuse edematous state rather than an acute cholecystitis. 2. Small right pleural effusion and a small amount of perihepatic ascites persists. 3. Normal caliber common bile duct. Hospital Course (1) Volume overload: He has not been able to complete dialysis in the last few session due to abdominal pain during dialysis CXR showed cardiomegaly and mild pulmonary edema on admission Nephro consulted S/p HD and UF Pt is feeling much improved Hyperkalemia Related to ESRD s/p HD Continue monitor BMP ESRD HD on Tuesday, Tuesday and Tuesday Nephrology on board No abdominal pain during dialysis Cont. outpt as scheduled Continue monitor electrolytes as outpt Abdominal pain CT abdomen/pelvis showed small volume ascites and trace bilateral pleural effusions. Cholelithiasis. U/S of the gallbladder Cholelithiasis. There is thickening of the gallbladder wall along the hepatic surface which is likely due to the patient's diffuse edematous state rather than an acute cholecystitis. Surgery consulted No plans for surgical intervention Currently denies any pain Constipation stool softener provided , pt had BM and feels improved Anemia Hemoglobin 9 on admission, 8.7 Continue Monitor CBC HYPERTENSION Continue Imdur, Coreg, amlodipine and clonidine Continue monitor BP DIABETES TYPE 1 Most recent hemoglobin A1c 8.3 Continue Novolog sliding scale and lantus Continue monitor BS HISTORY OF SEIZURE Associated with cardiac arrest episode stable Total Time Total Time Spent Total Time Spent (In Minutes): 40 Discharge Plan Discharge Items Patient Disposition: Home - Self-Care Reason For Visit: HYPERKALEMIA, FLUID OVERLOAD Discharge Diagnosis: Fluid overload, in the setting of end-stage renal disease, on dialysis Constipation Activity: Per Instructions section Non-emergency contact: Primary Care Provider and Auto Inspector Call non-emergency contact if: you have any medication questions and your symptoms worsen Follow-up/Referrals: Mckinley Douglas MD [Primary Care Provider] - (Date & Time 10/05/2022 1:40 PM Provider Luís Cr MD [facility] ) Diet: Dialysis Renal Addtl Attending Provider Instructions: Follow-up with your primary care physician and human insights lead ads marketing. The appointment with your primary care doctor was scheduled for you for October 05. Continue with your scheduled dialysis. To prevent constipation, recommend using stool softeners, such as senna, Colace, or MiraLAX. You can obtain this [id number]. Pending Studies at Discharge: No Stand-Alone Forms: My [facility] [place], Smoking Cessation Medications and DC Order Prescriptions: Continued Triphrocaps 1 mg capsule See Rx Instructions .ROUTE .COMPLEX Qty: 90 10RF Dose Instruction: TAKE 1 CAPSULE BY MOUTH BY MOUTH DAILY Rx Instructions: TAKE 1 CAPSULE BY MOUTH BY MOUTH DAILY amlodipine 10 mg tablet 10 mg PO QPM Qty: 90 1RF Rx Instructions: TAKE 1 TABLET BY MOUTH EVERY DAY carvedilol 25 mg Tablet 25 mg PO BIDM acetaminophen [Tylenol] 325 mg Tablet 650 mg PO Q4H PRN (Reason: Pain (Scale Score 1-3)) atorvastatin 20 mg Tablet 20 mg PO HS insulin glargine [Lantus U-100 Insulin] 100 unit/mL Solution 12 unit SUBCUT HS heparin (porcine) 1,000 unit/mL Solution 1,000 unit IV DIRECTED PRN (Reason: DIALYSIS) isosorbide mononitrate 30 mg Tablet Extended Release 24 Hr 30 mg PO QPM Humulin R Regular U-100 Insuln 100 unit/mL Solution 1 sliding scale dose SUBCUT TIDM Rx Instructions: BSG 70-130=0 UNITS, BSG 131-180=2 UNITS, BSG 181-240=4 UNITS, BSG 241-300=6 UNITS, BSG 301-350=8 UNITS, BSG 351-400=10 UNITS, BSG >400=12 UNITS; CALL Venofer 100 mg iron/5 mL Solution 100 mg IV WK PRN (Reason: DIALYSIS) Rx Instructions: EVERY TUESDAY PRN DIALYSIS sodium chloride 0.9 % Piggyback 1,000 ml IV DIRECTED PRN (Reason: DIALYSIS) calcium acetate(phosphat bind) 667 mg capsule 1,334 mg PO TIDM aspirin [Adult Aspirin Regimen] 81 mg tablet,delayed release (DR/EC) 81 mg PO DAILY Qty: 30 11RF clonidine HCl 0.2 mg Tablet 0.2 mg PO BID benzonatate 100 mg Capsule 100 mg PO TID PRN (Reason: Cough) Discharge Orders: Discharge Order (Routine); Ordered 09/29/22 Ordered By: Omar Amaya/Other Patient Handouts: Managing Type 1 Diabetes Admission Data Admit Date/Time: 09/26/22 01:03 Attending Provider: Omar Kelly Admit Provider: Km Bryant Primary Care Provider: Mckinley Douglas Other Providers: Km Bryant ; Alejandro Colindres ; Shannan Vo Kevin C. ; Mayda Hargrove ; Lalo Hughes ; Tyler Parker
== END 2022-09-29 20:31 | disposition home or self-care (01) | DRG 640 ==
LOC: ED 21:26 → SUATTDRO 09-26 01:03 → 2W 09-26 01:03

== ENCOUNTER 2022-10-18 05:47 | Inpatient (IN) ==
[2022-10-18 07:00] LABS: Basophils # (auto) 0.11 K/uL (0-0.2); Basophils % (auto) 1.3 %; Eosinophils # (auto) 0.37 K/uL (0-0.50); Eosinophils % (auto) 4.3 %; Hematocrit (blood only) 32.9 % (42.0-52.0); Hemoglobin 10.3 g/dl (14.0-18.0); Immature Granulocytes # (auto) 0.02 K/uL (0.01-0.20); Immature Granulocytes % (auto) 0.2 %; Lymphocytes # (auto) 1.39 K/uL (1.2-3.4); Lymphocytes % (auto) 16.1 %; Mean Corpuscular Hemoglobin 29.5 pg (25.0-34.0); Mean Corpuscular Hgb Conc 31.3 g/dL (32.0-36.0); Mean Corpuscular Volume 94.3 fL (80.0-100.0); Mean Platelet Volume 10.7 fL (9.4-12.4); Monocytes # (auto) 0.73 K/uL (0.11-0.59); Monocytes % (auto) 8.4 %; Neutrophils # (auto) 6.04 K/uL (1.40-6.50); Neutrophils % (auto) 69.7 %; Platelet Count 200 K/uL (130-400); RDW Coefficient of Variation 19.5 % (11.5-14.5); RDW Standard Deviation 67.5 fL (36.4-46.3); Red Blood Count 3.49 M/uL (4.70-6.10); White Blood Count 8.66 K/ul (4.8-10.8)
--- NOTE | 2022-10-18 07:00 | XRay Report ---
XR chest 1V portable CLINICAL HISTORY: Chest pain, nonspecific COMPARISON STUDY: Chest CT September 30, 2019. Chest radiograph September 25, 2022. FINDINGS: There is no pneumothorax. A trace left pleural effusion is unchanged. There are median ster notomy wires. Cardiomegaly is unchanged. Right pleural effusion has decreased in size since prior exa m. Pulmonary edema has improved. There is no consolidation to suggest pneumonia. IMPRESSION: 1. Cardiomegaly with a trace left pleural effusion. 2. Interval resolution of pulmonary edema and a right pleural effusion. ACT 112: Negative or not required by law. Electronically signed by: Ronak Alejandro M.D. 10/18/2022 6:59 AM
[2022-10-18 07:09] LABS: Alanine Aminotransferase 12 U/L (7-52); Albumin Globulin Ratio 1.1 (0.9-2); Albumin Level 3.6 gm/dl (3.4-5.0); Alkaline Phosphatase 87 U/L (34-104); Anion Gap 14 (3-11); Aspartate Aminotransferase 9 U/L (13-39); BUN Creatinine Ratio 7.6 (10-20); Bilirubin,Total 0.6 mg/dl (0.2-1.0); Blood Urea Nitrogen 74 mg/dl (6-23); Calcium 9.5 mg/dl (8.6-10.3); Carbon Dioxide 28 mmol/L (21-32); Chloride 90 mmol/L (98-107); Est GFR (African American) 7.1 ml/min; Est GFR (Non-African American) 6.1 ml/min; Globulin 3.4 gm/dl (2.5-4.0); Glucose 189 mg/dl (70-99(Fasting)); Potassium 6.3 mmol/L (3.5-5.1); Sodium 132 mmol/L (136-145); Troponin I High Sensitivity 56.1 pg/ml (0-20)
--- NOTE | 2022-10-18 07:14 | Emergency Department Note ---
Impression & Plan Volume overload, ESRD on hemodialysis, Acute hyperkalemia, Hypoxia ED Provider Note Name: BRONSON SAVAGE Age: 37 Sex: M Arrives Via: Ambulance Informant: Patient, ED Provider: Amado Bello MD Chief Complaint: Shortness of breath Impression: As per impressions above Medical Decision Makin-year-old gentleman with extensive past medical history including stage renal disease on dialysis cardiomyopathy amongst others arrives for evaluation of worsening shortness of breath over the last few days. He had a shortened dialysis on Tuesday and now Tuesday morning he is significantly short of breath and is fluid overloaded. He is moderately hypoxic on room air but otherwise looks well on nasal cannula. Laboratory work-up reveals expected elevated BUN/creatinine along with a moderate hyperkalemia. When reviewing chart patient is actually oftentimes hyperkalemic and with unremarkable EKG patient without any significant complaints I do not feel that he needs to emergently be dialyzed or medically treated but relatively urgent dialysis later today is clearly i ndicated. I did discuss this with his bushel worker and plan is to admit to this facility with plan dialysis later this afternoon. Hospitalist was consulted and everybody is on board with this plan. Patient does not appear septic and there is no clear evidence of ACS at this time. Symptoms very much clearly are secondary to fluid overload and I think further work-up as PE is unnecessary at this time. Prior Medical Record and Triage/Nursing Notes reviewed by Me External chart reviewed by me Differentials:Fluid overload, pneumonia, CHF, electrolyte imbalance, infectious etiology, pneumothorax, ACS, PE amongst many other pathologies considered Vital Signs: reviewed and remarkable for hypoxia on room air Interventions: Nasal cannula O2 Labs:Reviewed and remarkable for elevated BUN/creatinine/potassium Imagin view chest x-ray interpreted by me reveals bilateral congestive failure/fluid overload improved from previous episodes of pulmonary edema EKG:As per my interpretation. Indication shortness of breath. Normal sinus rhythm at 64 bpm with a QTc of 458. There is no peak T waves appreciated. There is some mild lateral ST depressions. There is an intraventricular block. When compared to an EKG of October 16, 2022 there is no significant change. Cardiac/Tele Monitoring: Cardiac Monitoring: An Order was placed for continuous cardiac monitoring. The monitor shows a rate of 60 with a normal sinus rhythm. Consults:Dr. Khan patient's bushel worker. [facility] hospitalist team Plan: Disposition:Hospitalization. Condition: Fair History of Present Illness:37-year-old male arrives for evaluation of weakness. Patient with a long history of renal failure on end-stage dialysis, diabetes, ischemic cardiomyopathy, CAD, cardiac surgery arrives for worsening weakness. He states the last few days he has felt short of breath and fatigue. He did been seen at his dialysis clinic on Tuesday and notes a shortened treatment as he had arrived late. Throughout the weekend worsening shortness of breath fatigue and weakness. He has been dropping things states that he is just too tired. Arrives to the ER feeling that he is not fluid overloaded. Oxygen on arrival was 88% on room air which is new for him Past History:See Below Home Medications:See Below Allergies:See Below Vitals:Blood Pressure: 134/80, Pulse 68, RR 18, T 36.5C, O2 88% on RA Physical Exam: GENERAL: Patient is tired/chronically unwell appearing and in minimal distress. EYES: No scleral icterus, unremarkable pupils. RESPIRATORY: No dyspnea. Clear to auscultation and equal bilaterally. No wheeze, no rhonchi. CARDIOVASCULAR: Regular rate and rhythm.No murmurs, rubs, gallops appreciated. GASTROINTESTINAL: Abdomen soft, non-tender, no peritonitis. EXTREMITIES: Normal motion all extremities, no cyanosis, mild bilateral edema. Fistula left upper arm intact NEUROLOGIC: Alert and oriented, no acute motor or sensory deficits SKIN: No rash, no jaundice, no diaphoresis. PSYCH: Appropriate GCS: 15 ED Course: Times/Reassessments: Patient stable is tolerating nasal cannula O2 well in no distress. Amado Bello MD Past Med/Surg History Medical History (Updated 10/19/22 @ 11:32 by Amado Bello MD) Abnormal ankle brachial index (ANÍBAL) Anemia due to chronic kidney disease CAD (coronary artery disease) CABG x2 (2018) Diabetic nephropathy associated with type 1 diabetes mellitus Diabetic peripheral neuropathy associated with type 1 diabetes mellitus Dyslipidemia ESRD on dialysis Gall bladder stones History of convulsions Found on the floor "convulsing" years ago, no definite etiology/no seizure diagnosis, no issues since Hypertension Ischemic cardiomyopathy Macular degeneration PAD (peripheral artery disease) Personal history of diabetic foot ulcer Poorly controlled type 1 diabetes mellitus Proliferative diabetic retinopathy associated with type 1 diabetes mellitus Surgical History History of coronary artery bypass graft History of dental surgery S/P dialysis catheter insertion Family History Mother Family history of diabetes mellitus Kidney disease Father Family history of diabetes mellitus Kidney disease Social History Smoking Status: Current every day smoker Tobacco Type: Cigarettes Age Started Using Tobacco: 11; packs per day: 1; Cigarettes Per Day: less than 1 pack; Second Hand Exposure: No; Hx Alcohol Use: No Hx Substance Use: No Preferred Language: Azeri Communication Ability: Effective Hearing Ability: Normal Front Desk Auxiliary Required: No Beliefs That Will Affect Care: None marital status: Single Current Living Situation: Alone other: Patient does have anyone to help with dressings Feels Safe at Home: Yes Diet Comment: Renal Assistive Devices: Glasses Allergies Allergies Allergy/AdvReac Type Severity Reaction Status Date / Time clopidogrel [From Plavix] Allergy Severe itching Verified 10/16/22 20:48 Home Meds Home Medications Medication Instructions Recorded Confirmed acetaminophen 325 mg tablet 650 mg PO Q4H PRN Pain (Scale 09/30/19 10/18/22 (Tylenol) Score 1-3) atorvastatin 20 mg tablet 20 mg PO HS 09/30/19 10/18/22 carvedilol 25 mg tablet 25 mg PO BIDM 09/30/19 10/18/22 heparin (porcine) 1,000 unit/mL 1,000 unit IV DIRECTED PRN 09/30/19 10/18/22 injection solution DIALYSIS iron sucrose 100 mg iron/5 mL 100 mg IV WK PRN DIALYSIS 09/30/19 10/18/22 intravenous solution (Venofer) isosorbide mononitrate 30 mg 30 mg PO QPM 09/30/19 10/18/22 tablet,extended release 24 hr sodium chloride 0.9 % 1,000 ml IV DIRECTED PRN 09/30/19 10/18/22 DIALYSIS calcium acetate(phosphat bind) 667 1,334 mg PO TIDM 04/07/22 10/18/22 mg capsule clonidine HCl 0.2 mg tablet 0.2 mg PO BID 07/12/22 10/18/22 benzonatate 100 mg capsule 100 mg PO TID PRN Cough 07/27/22 10/18/22 cyclobenzaprine 5 mg tablet 5 mg PO HS PRN MUSCLE SPASMS 10/16/22 10/18/22 gabapentin 300 mg capsule 300 mg PO TID PRN PAIN PER PT. 10/16/22 10/18/22 vitamin B complex and vitamin C 1 cap PO DAILY 10/16/22 10/18/22 no.20-folic acid 1 mg capsule (Triphrocaps) Previous Rx's Medication Instructions Recorded aspirin 81 mg tablet,delayed 81 mg PO DAILY #30 tabs 05/24/22 release (Adult Aspirin Regimen) amlodipine 10 mg tablet 10 mg PO QPM #90 tabs 09/22/22 insulin glargine 100 unit/mL 12 unit (0.12 mL) subcut HS #10 mL 10/15/22 subcutaneous solution (Lantus U-100 Insulin) insulin regular human 100 unit/mL 1 sliding scale dose subcut TIDM 10/15/22 injection solution (Humulin R #3 mL Regular U-100 Insulin) Results & Data (ED) Vital Signs Vital Signs - 24 hr 10/18/22 06:03 10/18/22 06:10 10/18/22 05:55 Temperature 36.5 C Temperature Source Oral Pulse Rate 68 68 Respiratory Rate 18 Blood Pressure 134/80 Blood Pressure Mean 98 Pulse Oximetry 92 95 Oxygen Delivery Method Room Air Room Air Oxygen Flow Rate Sepsis Recent Fever Within 48 Hours No Sepsis New/Unexplained Change in Mental Status No Sepsis Action Taken by Nursing No Action Required Oxygen Flow Rate - Titration Pulse Oximetry Post Tiitration 10/18/22 06:45 Temperature Temperature Source Pulse Rate Respiratory Rate Blood Pressure Blood Pressure Mean Pulse Oximetry 88 L Oxygen Delivery Method Nasal Cannula Oxygen Flow Rate 0 Sepsis Recent Fever Within 48 Hours Sepsis New/Unexplained Change in Mental Status Sepsis Action Taken by Nursing Oxygen Flow Rate - Titration 2 Pulse Oximetry Post Tiitration 96 Laboratory Data 10/18/22 05:56 10/18/22 05:56 Lab Results 10/18/22 10/18/22 10/18/22 Range/Units 05:56 05:56 05:56 WBC 8.66 (4.8-10.8) K/ul RBC 3.49 L (4.70-6.10) M/uL Hgb 10.3 L (14.0-18.0) g/dl Hct 32.9 L (42.0-52.0) % MCV 94.3 (80.0-100.0) fL MCH 29.5 (25.0-34.0) pg MCHC 31.3 L (32.0-36.0) g/dL RDW Std Deviation 67.5 H (36.4-46.3) fL RDW Coeff of Hedy 19.5 H (11.5-14.5) % Plt Count 200 (130-400) K/uL MPV 10.7 (9.4-12.4) fL Immature Gran % (Auto) 0.2 % Neut % (Auto) 69.7 % Lymph % (Auto) 16.1 % [place] % (Auto) 8.4 % Eos % (Auto) 4.3 % Baso % (Auto) 1.3 % Neut # (Auto) 6.04 (1.40-6.50) K/uL Lymph # (Auto) 1.39 (1.2-3.4) K/uL [place] # (Auto) 0.73 H (0.11-0.59) K/uL Eos # (Auto) 0.37 (0-0.50) K/uL Baso # (Auto) 0.11 (0-0.2) K/uL Immature Gran # (Auto) 0.02 (0.01-0.20) K/uL PT 13.1 H (9.0-12.0) Seconds INR 1.2 H (0.9-1.1) APTT 27.1 (21.0-31.0) Seconds PTT Ratio 1.0 Sodium 132 L (136-145) mmol/L Potassium 6.3 H* (3.5-5.1) mmol/L Chloride 90 L (98-107) mmol/L Carbon Dioxide 28 (21-32) mmol/L Anion Gap 14 H (3-11) BUN 74 H D (6-23) mg/dl Creatinine 9.71 H* D (0.6-1.4) mg/dl Est Cr Clr Drug Dosing Not Reportable Est GFR ( Amer) 7.1 ml/min Est GFR (Non-Af Amer) 6.1 ml/min BUN/Creatinine Ratio 7.6 L (10-20) Glucose 189 H (70-99(Fasting)) mg/dl Calcium 9.5 (8.6-10.3) mg/dl Total Bilirubin 0.6 (0.2-1.0) mg/dl AST 9 L (13-39) U/L ALT 12 (7-52) U/L Alkaline Phosphatase 87 (34-104) U/L Troponin I High Sens 56.1 H* (0-20) pg/ml Total Protein 7.0 (6.0-8.3) gm/dl Albumin 3.6 (3.4-5.0) gm/dl Globulin 3.4 (2.5-4.0) gm/dl Albumin/Globulin Ratio 1.1 (0.9-2) TSH (0.300-4.500) uIu/ml SARS-CoV-2 (PCR) (Negative) Influenza Type A (PCR) (Neg) Influenza Type B (PCR) (Neg) RSV (RT-PCR) (Neg) 10/18/22 10/18/22 Range/Units 05:56 06:40 WBC (4.8-10.8) K/ul RBC (4.70-6.10) M/uL Hgb (14.0-18.0) g/dl Hct (42.0-52.0) % MCV (80.0-100.0) fL MCH (25.0-34.0) pg MCHC (32.0-36.0) g/dL RDW Std Deviation (36.4-46.3) fL RDW Coeff of Hedy (11.5-14.5) % Plt Count (130-400) K/uL MPV (9.4-12.4) fL Immature Gran % (Auto) % Neut % (Auto) % Lymph % (Auto) % [place] % (Auto) % Eos % (Auto) % Baso % (Auto) % Neut # (Auto) (1.40-6.50) K/uL Lymph # (Auto) (1.2-3.4) K/uL [place] # (Auto) (0.11-0.59) K/uL Eos # (Auto) (0-0.50) K/uL Baso # (Auto) (0-0.2) K/uL Immature Gran # (Auto) (0.01-0.20) K/uL PT (9.0-12.0) Seconds INR (0.9-1.1) APTT (21.0-31.0) Seconds PTT Ratio Sodium (136-145) mmol/L Potassium (3.5-5.1) mmol/L Chloride (98-107) mmol/L Carbon Dioxide (21-32) mmol/L Anion Gap (3-11) BUN (6-23) mg/dl Creatinine (0.6-1.4) mg/dl Est Cr Clr Drug Dosing Est GFR ( Amer) ml/min Est GFR (Non-Af Amer) ml/min BUN/Creatinine Ratio (10-20) Glucose (70-99(Fasting)) mg/dl Calcium (8.6-10.3) mg/dl Total Bilirubin (0.2-1.0) mg/dl AST (13-39) U/L ALT (7-52) U/L Alkaline Phosphatase (34-104) U/L Troponin I High Sens (0-20) pg/ml Total Protein (6.0-8.3) gm/dl Albumin (3.4-5.0) gm/dl Globulin (2.5-4.0) gm/dl Albumin/Globulin Ratio (0.9-2) TSH 1.940 (0.300-4.500) uIu/ml SARS-CoV-2 (PCR) NEGATIVE (Negative) Influenza Type A (PCR) Negative (Neg) Influenza Type B (PCR) Negative (Neg) RSV (RT-PCR) Negative (Neg) Administered Medications Acetaminophen (Acetaminophen 325 Mg Tab) 650 mg PO Q4H PRN PRN Reason: Pain (Scale Score 1-3) Stop: 11/17/22 13:27 Last Admin: 10/18/22 15:21 Dose: 650 mg Documented By: MAYCO Amlodipine Besylate (Amlodipine Besylate 5 Mg Tab) 10 mg PO QPM [facility] Stop: 11/17/22 20:59 Last Admin: 10/18/22 20:57 Dose: 10 mg Documented By: JL Aspirin (Aspirin 81 Mg Ectab) 81 mg PO DAILY [facility] Stop: 11/18/22 08:59 Last Admin: 10/19/22 08:28 Dose: 81 mg Documented By: KSS Co-signed By: ROBERT Atorvastatin Calcium (Atorvastatin 20 Mg Tab) 20 mg PO HS [facility] Stop: 11/17/22 20:59 Last Admin: 10/18/22 20:57 Dose: 20 mg Documented By: JL Calcium Acetate (Calcium Acetate 667 Mg Cap/Tab) 1,334 mg PO TIDM JANAK Stop: 11/17/22 16:59 Last Admin: 10/19/22 08:26 Dose: 1,334 mg Documented By: NEDA Co-signed By: ROBERT Admin: 10/18/22 17:16 Dose: 1,334 mg Documented By: MAYCO Carvedilol (Carvedilol 25 Mg Tab) 25 mg PO BIDM [facility] Stop: 11/17/22 16:59 Last Admin: 10/19/22 08:27 Dose: 25 mg Documented By: NEDA Co-signed By: ROBERT Admin: 10/18/22 17:16 Dose: 25 mg Documented By: MAYCO Clonidine HCl (Clonidine Hcl 0.1 Mg Tab) 0.2 mg PO BID [facility] Stop: 11/17/22 20:59 Last Admin: 10/19/22 08:29 Dose: 0.2 mg Documented By: NEDA Co-signed By: ROBERT Admin: 10/18/22 20:57 Dose: 0.2 mg Documented By: JL Gabapentin (Gabapentin 300 Mg Cap) 300 mg PO TID PRN PRN Reason: PAIN PER PT. Stop: 11/17/22 13:27 Last Admin: 10/19/22 01:00 Dose: 300 mg Documented By: JL Insulin Aspart (Insulin Aspart Per Unit Charge) 0 units SC ACHS [facility] Stop: 11/17/22 16:29 Last Admin: 10/19/22 08:24 Dose: 8 units Documented By: NEDA Co-signed By: ROBERT Admin: 10/18/22 20:28 Dose: Not Given Documented By: Admin: 10/18/22 17:16 Dose: 7 units Documented By: MAYCO Co-signed By: HEIDI Insulin Glargine (Lantus Per Unit Charge) 12 units SQ HS [facility] Stop: 11/17/22 20:59 Last Admin: 10/18/22 20:56 Dose: 12 units Documented By: JL Co-signed By: HARESH Isosorbide Mononitrate (Isosorbide [place] Extended Rel 30 Mg Tabcr) 30 mg PO QPM [facility] Stop: 11/17/22 20:59 Last Admin: 10/18/22 20:56 Dose: 30 mg Documented By: JL Vitamin B Complex/Folic Acid (Nephrocaps) 1 cap PO DAILY JANAK Stop: 11/18/22 08:59 Last Admin: 10/19/22 08:28 Dose: 1 cap Documented By: NEDA Co-signed By: ROBERT Imaging Data Radiologist's Impression: Chest X-Ray 10/18/22 06:17 XR chest 1V portable CLINICAL HISTORY: Chest pain, nonspecific COMPARISON STUDY: Chest CT September 30, 2019. Chest radiograph September 25, 2022. FINDINGS: There is no pneumothorax. A trace left pleural effusion is unchanged. There are median sternotomy wires. Cardiomegaly is unchanged. Right pleural effusion has decreased in size since prior exam. Pulmonary edema has improved. There is no consolidation to suggest pneumonia. IMPRESSION: 1. Cardiomegaly with a trace left pleural effusion. 2. Interval resolution of pulmonary edema and a right pleural effusion. ACT 112: Negative or not required by law. Electronically signed by: Ronak Alejandro M.D. 10/18/2022 6:59 AM Discharge Plan Visit Data Chief Complaint: Shortness of Breath/Dyspnea Stated Complaint: EXERTIONAL DYSPNEA ED Provider: Amado Bello Discharge Problem: Volume overload, ESRD on hemodialysis, Acute hyperkalemia, Hypoxia Patient Disposition: Admitted As Inpatient Discharge Instructions Interventions: ED Discharge Assessment Last Done: 10/18/22 10:08
[2022-10-18 07:37] LABS: Influenza A virus by PCR Negative (Neg); Influenza B virus by PCR Negative (Neg); RSV by PCR Negative (Neg); SARS CoV2 RNA(COVID-19) Ceph NEGATIVE (Negative)
[2022-10-18 08:03] LABS: INR 1.2 (0.9-1.1); Partial Thromboplastin Time 27.1 Seconds (21.0-31.0); Prothrombin Time 13.1 Seconds (9.0-12.0)
--- NOTE | 2022-10-18 08:41 | History & Physical Report ---
Date of Service October 18, 2022 Assessment & Plan (1) Volume overload: Plan: This is a 37 y/o male with ESRD on HD M/W/F, Type 1 DM with associated nephropathy, neuropathy, and retinopathy who presented to the ED today with progressive dyspnea and weakness thought secondary to volume overload. Pt missed an HD treatment earlier this month and his last treatment was only 2 hours due to showing up late. He is >11 kg about his EDW. Also noted to have hyperkalemia today on labs in the ED. - Admit for emergent HD today - ED provider spoke with on-call nephrology - Consult nephrology to follow while pt admitted - appreciate their assistance - Daily labs - Due to hyperkalemia, will monitor in PCU (2) Acute hyperkalemia: Plan: See plan for #1 (3) Hypoxia: Plan: Suspect due to volume overload - clinical picture does not appear consistent with infectious etiology at present - Wean O2 as tolerated (4) ESRD on dialysis: (5) Poorly controlled type 1 diabetes mellitus: Plan: Continue basal insulin with sliding scale coverage Diabetic, dialysis diet (6) Anemia due to chronic kidney disease: Plan: H&H appears stable around baseline of 10 (7) Dyslipidemia: (8) Hypertension: (9) Ischemic cardiomyopathy: (10) CAD (coronary artery disease): Plan Continue other home medications as appropriate Pt seen and reviewed with collaborating physician, Dr. Smith. Plan of care discussed and as outlined above Code Status: Full code DVT Prophylaxis: SubQ heparin Ursula Hansen PA-C History of Present Illness Chief Complaint: Weakness, shortness of breath Primary Care Provider: Mckinley Douglas MD This is a 37 y/o male with ESRD on HD, Type 1 DM, diabetic nephropathy, diabetic neuropathy, diabetic retinopathy, hx CAD s/p CABG, dyslipidemia, PAD, HTN, HFrEF due to ischemic cardiomyopathy, and chronic anemia who presented to the ED today with worsening shortness of breath and weakness. Pt reports he showed up late on Tuesday for HD and that they were unable to complete a full treatment because of that (2 hrs total). He has a history of noncompliance with HD having also missed his treatment on 10/06. He reports he is being evaluated for possible PD but needs to have a cholecystectomy first, which has not been scheduled. He presented to the ED late Tuesday night with abdominal pain - ED evaluation was unremarkable so he was sent home. He returned to the ED today via EMS due to worsening weakness and shortness of breath. He reports increased weakness and abdominal distention since Tuesday. He tried taking a laxative thinking that he was constipated and that would help the abdominal distention. He moved his bowels but had no relief of symptoms. The shortness of breath has also slowly worsened. Denies associated chest pain, palpitations, congestion, sore throat, cough, N/V, fevers, chills. He notes intermittent BERRY. He reports his blood sugars have been high for him - recently 300s to 400. Outpatient PCP records and recent admission notes were reviewed. Allergies Allergy/AdvReac Type Severity Reaction Status Date / Time clopidogrel [From Plavix] Allergy Severe itching Verified 10/16/22 20:48 Home Medications Medication Instructions Recorded Confirmed Type acetaminophen 325 mg tablet 650 mg PO Q4H PRN Pain (Scale 09/30/19 10/18/22 History (Tylenol) Score 1-3) atorvastatin 20 mg tablet 20 mg PO HS 09/30/19 10/18/22 History carvedilol 25 mg tablet 25 mg PO BIDM 09/30/19 10/18/22 History heparin (porcine) 1,000 unit/mL 1,000 unit IV DIRECTED PRN 09/30/19 10/18/22 History injection solution DIALYSIS iron sucrose 100 mg iron/5 mL 100 mg IV WK PRN DIALYSIS 09/30/19 10/18/22 History intravenous solution (Venofer) isosorbide mononitrate 30 mg 30 mg PO QPM 09/30/19 10/18/22 History tablet,extended release 24 hr sodium chloride 0.9 % 1,000 ml IV DIRECTED PRN 09/30/19 10/18/22 History DIALYSIS calcium acetate(phosphat bind) 667 1,334 mg PO TIDM 04/07/22 10/18/22 History mg capsule aspirin 81 mg tablet,delayed 81 mg PO DAILY #30 tabs 05/24/22 10/18/22 Rx release (Adult Aspirin Regimen) clonidine HCl 0.2 mg tablet 0.2 mg PO BID 07/12/22 10/18/22 History benzonatate 100 mg capsule 100 mg PO TID PRN Cough 07/27/22 10/18/22 History amlodipine 10 mg tablet 10 mg PO QPM #90 tabs 09/22/22 10/18/22 Rx insulin glargine 100 unit/mL 12 unit (0.12 mL) subcut HS #10 mL 10/15/22 10/18/22 Rx subcutaneous solution (Lantus U-100 Insulin) insulin regular human 100 unit/mL 1 sliding scale dose subcut TIDM 10/15/22 10/18/22 Rx injection solution (Humulin R #3 mL Regular U-100 Insulin) cyclobenzaprine 5 mg tablet 5 mg PO HS PRN MUSCLE SPASMS 10/16/22 10/18/22 History gabapentin 300 mg capsule 300 mg PO TID PRN PAIN PER PT. 10/16/22 10/18/22 History vitamin B complex and vitamin C 1 cap PO DAILY 10/16/22 10/18/22 History no.20-folic acid 1 mg capsule (Triphrocaps) Past Med/Surg History Medical History (Updated 10/18/22 @ 13:13 by Alona Hansen PA-C) Abnormal ankle brachial index (ANÍBAL) Anemia due to chronic kidney disease CAD (coronary artery disease) CABG x2 (2018) Diabetic nephropathy associated with type 1 diabetes mellitus Diabetic peripheral neuropathy associated with type 1 diabetes mellitus Dyslipidemia ESRD on dialysis Gall bladder stones History of convulsions Found on the floor "convulsing" years ago, no definite etiology/no seizure diagnosis, no issues since Hypertension Ischemic cardiomyopathy Macular degeneration PAD (peripheral artery disease) Personal history of diabetic foot ulcer Poorly controlled type 1 diabetes mellitus Proliferative diabetic retinopathy associated with type 1 diabetes mellitus Surgical History History of coronary artery bypass graft History of dental surgery S/P dialysis catheter insertion Family History Mother Family history of diabetes mellitus Kidney disease Father Family history of diabetes mellitus Kidney disease Social History Smoking Status: Current every day smoker Tobacco Type: Cigarettes Age Started Using Tobacco: 11; packs per day: 1; Cigarettes Per Day: less than 1 pack; Second Hand Exposure: No; Hx Alcohol Use: No Hx Substance Use: No Preferred Language: Indian Communication Ability: Effective Hearing Ability: Normal Road Commissioner Required: No Beliefs That Will Affect Care: None marital status: Single Current Living Situation: Alone other: Patient does have anyone to help with dressings Feels Safe at Home: Yes Diet Comment: Renal Assistive Devices: Glasses Review of Systems Review of Systems: All systems reviewed & are unremarkable except as noted in HPI & below Constitutional: + fatigue and + weakness; no fever Eyes: no diplopia Ear, Nose, Mouth, Throat: + sinus pain/pressure; no nasal congestion, no nasal discharge and no sore throat Respiratory: + dyspnea; no cough Cardiovascular: + edema; no chest pain, no palpitations and no syncope Gastrointestinal: + bloating; no nausea and no vomiting Genitourinary: + problem reported (anuria due to ESRD) Integumentary: no yellowing of the skin Neurologic: + headache(s) Psychiatric: no anxiety Physical Exam Constitutional: well developed, well nourished and + ill appearing; no acute distress Eyes: + anicteric sclerae Neck: trachea midline Respiratory: no respiratory distress and no labored breathing Auscultation: + crackles (at bases bilaterally) Cardiovascular: Rate/Rhythm: regular rate and regular rhythm Vessels: radial pulses present Extremities: + edema (trace bilateral LE) Gastrointestinal (Abdomen): Inspection/Auscultation: + abdomen distended and normal bowel sounds Percussion/Palpation: abdomen soft; abdomen nontender Musculoskeletal: Head/Neck/Chest: normocephalic and head atraumatic Skin: no jaundice Neurologic: moves all extremities; no focal motor deficits and not confused Psychiatric: A+Ox3, euthymic affect Results & Data Results & Data Vital Signs (Past 12 Hours) Vital Signs Temp Pulse Resp BP Pulse Ox O2 Del Method O2 Flow Rate 10/18/22 08:06 59 L 19 110/73 98 Nasal Cannula 2 10/18/22 08:00 59 L 15 110/73 97 Nasal Cannula 2 10/18/22 07:30 60 16 96 10/18/22 06:45 88 L Nasal Cannula 0 10/18/22 05:55 68 10/18/22 06:10 36.5 C 68 18 134/80 95 Room Air 10/18/22 06:03 92 Room Air Laboratory Results Laboratory Results - last 24 hr 10/18/22 10/18/22 10/18/22 05:56 05:56 05:56 WBC 8.66 RBC 3.49 L Hgb 10.3 L Hct 32.9 L MCV 94.3 MCH 29.5 MCHC 31.3 L RDW Std Deviation 67.5 H RDW Coeff of Hedy 19.5 H Plt Count 200 MPV 10.7 Immature Gran % (Auto) 0.2 Neut % (Auto) 69.7 Lymph % (Auto) 16.1 Crowley % (Auto) 8.4 Eos % (Auto) 4.3 Baso % (Auto) 1.3 Neut # (Auto) 6.04 Lymph # (Auto) 1.39 Crowley # (Auto) 0.73 H Eos # (Auto) 0.37 Baso # (Auto) 0.11 Immature Gran # (Auto) 0.02 PT 13.1 H INR 1.2 H APTT 27.1 PTT Ratio 1.0 Sodium 132 L Potassium 6.3 H* Chloride 90 L Carbon Dioxide 28 Anion Gap 14 H BUN 74 H D Creatinine 9.71 H* D Est Cr Clr Drug Dosing Not Reportable Est GFR ( Amer) 7.1 Est GFR (Non-Af Amer) 6.1 BUN/Creatinine Ratio 7.6 L Glucose 189 H Calcium 9.5 Total Bilirubin 0.6 AST 9 L ALT 12 Alkaline Phosphatase 87 Troponin I High Sens 56.1 H* Total Protein 7.0 Albumin 3.6 Globulin 3.4 Albumin/Globulin Ratio 1.1 SARS-CoV-2 (PCR) Influenza Type A (PCR) Influenza Type B (PCR) RSV (RT-PCR) 10/18/22 06:40 WBC RBC Hgb Hct MCV MCH MCHC RDW Std Deviation RDW Coeff of Hedy Plt Count MPV Immature Gran % (Auto) Neut % (Auto) Lymph % (Auto) Crowley % (Auto) Eos % (Auto) Baso % (Auto) Neut # (Auto) Lymph # (Auto) Crowley # (Auto) Eos # (Auto) Baso # (Auto) Immature Gran # (Auto) PT INR APTT PTT Ratio Sodium Potassium Chloride Carbon Dioxide Anion Gap BUN Creatinine Est Cr Clr Drug Dosing Est GFR ( Amer) Est GFR (Non-Af Amer) BUN/Creatinine Ratio Glucose Calcium Total Bilirubin AST ALT Alkaline Phosphatase Troponin I High Sens Total Protein Albumin Globulin Albumin/Globulin Ratio SARS-CoV-2 (PCR) NEGATIVE Influenza Type A (PCR) Negative Influenza Type B (PCR) Negative RSV (RT-PCR) Negative Diagnostic Findings Chest X-Ray 10/18/22 06:17 XR chest 1V portable CLINICAL HISTORY: Chest pain, nonspecific COMPARISON STUDY: Chest CT September 30, 2019. Chest radiograph September 25, 2022. FINDINGS: There is no pneumothorax. A trace left pleural effusion is unchanged. There are median sternotomy wires. Cardiomegaly is unchanged. Right pleural effusion has decreased in size since prior exam. Pulmonary edema has improved. There is no consolidation to suggest pneumonia. IMPRESSION: 1. Cardiomegaly with a trace left pleural effusion. 2. Interval resolution of pulmonary edema and a right pleural effusion. Code Status & VTE Plan VTE Prophylaxis Plan VTE Prophylaxis will be ordered: Yes Supervising Physician Co-Signing Physician Notes Patient was seen and examined independently. Chart reviewed. Case discussed with DASHA (10) CAD (coronary artery disease) Associated angina: angina presence unspecified Coronary Disease-Associated Artery/Lesion type: unspecified vessel or lesion type [place] vs. transplanted heart: [place] heart Qualified Code(s): I25.10 - Atherosclerotic heart disease of [place] coronary artery without angina pectoris
--- NOTE | 2022-10-18 09:01 | Nephrology Consultation ---
Date of Consultation October 18, 2022 Assessment & Plan (1) ESRD on hemodialysis: (2) Acute hyperkalemia: (3) Volume overload: (4) Anemia due to chronic kidney disease: (5) Hypertension: Plan 37-year-old male with end-stage renal disease on hemodialysis admitted with generalized weakness, SOB, volume overload and acute hyperkalemia. Chest x-ray pulmonary vascular congestion. EKG and cardiac enzymes were unremarkable. CT abdomen pelvis done yesterday showed cholelithiasis without cholecystitis. --plan for emergency dialysis now and then he will need daily dialysis for few days to improve volume status as he is >11 kg above his EDW. HD with 2 K bath, UF 4 L if tolerated and then HD tomorrow. --advised to strictly follow low-potassium diet,, fluid restriction to <1.2 L/d --phosphate binder with meals --dose medications for GFR less than 10, rt arm nephrology precaution. --discussed about the importance of compliance with HD Will Follow Thank you for allowing me to participate in your patient's care. It was a pleasure to see Yariel History of Present Illness Reason for Consultation: ESRD, hyperkalemia, volume overload, needs emergency dialysis. History of Present Illness Km Rebolledo is a 37 year old gentlemen with PMH significant for ESRD on HD, HTN, DM, ischemic cardiomyopathy, S/P CABG admitted to the hospital withgeneralized weakness, hyperkalemia and volume overload. Nephrology consult was requested for evaluation for emergency hemodialysis for volume overload and hyperkalemia. Electronic medical records including labs and imaging reviewed in detail during patient's visit. Lu[place]initially presented to ER yesterday with abdominal pain and evaluation including CT A/P was unremarkable and he was discharged home. He was then brought to ER by EMS early this morning with generalized weakness and SOB. No F/C. He last ate lunch yesterday. Denies CP, palpitation. No N/V/D. He was also admitted to hospital 1 month ago with 2 weeks history of abdominal pain, constipation and chest pain and w/u at that time was unremarkable except cholelithiasis without acute cholecystitis. On admission vital signs were stable. EKG showed sinus rhythm.Lab showed K 6.3. CXR with pulmonary vascular congestion. He has been on 2 L NC O2. Has ESKD in the setting of hypertension, diabetes and coronary artery disease. Has been on dialysis on MWF via [facility] AV fistula.Has history of noncompliance with dialysis treatment, missed HD on 10/06 and has been significantly above his EDW. Last week he had HD M and W but Tuesday he had only 2 h HD as he arrive late for the treatment. EDW is 66.5 kg and he is 78 kg today. His His past medical history also significant for hypertension, diabetes, ischemic cardiomyopathy, CAD s/p CABG. He still feels very weak and SOB. Denies abdominal pain, CP. . Allergies Allergy/AdvReac Type Severity Reaction Status Date / Time clopidogrel [From Plavix] Allergy Severe itching Verified 10/16/22 20:48 Home Medications Medication Instructions Recorded Confirmed Type acetaminophen 325 mg tablet 650 mg PO Q4H PRN Pain (Scale 09/30/19 10/16/22 History (Tylenol) Score 1-3) atorvastatin 20 mg tablet 20 mg PO HS 09/30/19 10/16/22 History carvedilol 25 mg tablet 25 mg PO BIDM 09/30/19 10/16/22 History heparin (porcine) 1,000 unit/mL 1,000 unit IV DIRECTED PRN 09/30/19 10/16/22 History injection solution DIALYSIS iron sucrose 100 mg iron/5 mL 100 mg IV WK PRN DIALYSIS 09/30/19 10/16/22 History intravenous solution (Venofer) isosorbide mononitrate 30 mg 30 mg PO QPM 09/30/19 10/16/22 History tablet,extended release 24 hr sodium chloride 0.9 % 1,000 ml IV DIRECTED PRN 09/30/19 10/16/22 History DIALYSIS calcium acetate(phosphat bind) 667 1,334 mg PO TIDM 04/07/22 10/16/22 History mg capsule aspirin 81 mg tablet,delayed 81 mg PO DAILY #30 tabs 05/24/22 10/16/22 Rx release (Adult Aspirin Regimen) clonidine HCl 0.2 mg tablet 0.2 mg PO BID 07/12/22 10/16/22 History benzonatate 100 mg capsule 100 mg PO TID PRN Cough 07/27/22 10/16/22 History amlodipine 10 mg tablet 10 mg PO QPM #90 tabs 09/22/22 10/16/22 Rx insulin glargine 100 unit/mL 12 unit (0.12 mL) subcut HS #10 mL 10/15/22 10/16/22 Rx subcutaneous solution (Lantus U-100 Insulin) insulin regular human 100 unit/mL 1 sliding scale dose subcut TIDM 10/15/22 10/16/22 Rx injection solution (Humulin R #3 mL Regular U-100 Insulin) cyclobenzaprine 5 mg tablet 5 mg PO HS PRN MUSCLE SPASMS 10/16/22 10/16/22 History gabapentin 300 mg capsule 300 mg PO TID PRN PAIN PER PT. 10/16/22 10/16/22 History vitamin B complex and vitamin C 1 cap PO DAILY 10/16/22 10/16/22 History no.20-folic acid 1 mg capsule (Triphrocaps) Patient History Medical History Abnormal ankle brachial index (ANÍBAL) Anemia due to chronic kidney disease CAD (coronary artery disease) CABG x2 (2018) Diabetic nephropathy associated with type 1 diabetes mellitus Diabetic peripheral neuropathy associated with type 1 diabetes mellitus Dyslipidemia ESRD on dialysis Gall bladder stones History of convulsions Found on the floor "convulsing" years ago, no definite etiology/no seizure diagnosis, no issues since Hypertension Ischemic cardiomyopathy Macular degeneration PAD (peripheral artery disease) Personal history of diabetic foot ulcer Poorly controlled type 1 diabetes mellitus Proliferative diabetic retinopathy associated with type 1 diabetes mellitus Surgical History History of coronary artery bypass graft History of dental surgery S/P dialysis catheter insertion Family History Mother Family history of diabetes mellitus Kidney disease Father Family history of diabetes mellitus Kidney disease Social History Smoking Status: Current every day smoker Tobacco Type: Cigarettes Age Started Using Tobacco: 11; packs per day: 1; Cigarettes Per Day: less than 1 pack; Second Hand Exposure: No; Hx Alcohol Use: No Hx Substance Use: No Preferred Language: Egyptian Communication Ability: Effective Hearing Ability: Normal 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 Physical Exam Constitutional: WD/WN, vitals as above + ill appearing; no acute distress Eyes: + anicteric sclerae Neck: normal visual inspection Respiratory: no cough Auscultation: + crackles (bilaterally) Cardiovascular: Rate/Rhythm: regular rate and regular rhythm Heart Sounds: normal S1 and normal S2 Extremities: + edema (trace b/l LE edema) Gastrointestinal (Abdomen): Inspection/Auscultation: abdomen normal to inspection and normal bowel sounds Percussion/Palpation: abdomen soft; abdomen nontender Musculoskeletal: Extremities: extremities normal to inspection Skin: no rashes Neurologic: no focal motor deficits Psychiatric: Orientation: alert and oriented x 3 Affect: euthymic affect Results & Data Vital Signs (Past 12 Hours) Vital Signs Temp Pulse Resp BP Pulse Ox O2 Del Method O2 Flow Rate 10/18/22 08:06 59 L 19 110/73 98 Nasal Cannula 2 10/18/22 08:00 59 L 15 110/73 97 Nasal Cannula 2 10/18/22 07:30 60 16 96 10/18/22 06:45 88 L Nasal Cannula 0 10/18/22 05:55 68 10/18/22 06:10 36.5 C 68 18 134/80 95 Room Air 10/18/22 06:03 92 Room Air PG Care Time/CCT Total # of Minutes Spent Total Time Spent with Patient: Total time spent is greater than 50% in coordination of care (as documented) at patient's floor/unit and/or counseling patient: Coding Level of Care Code 58800 INT INP/OBS CARE 3/75MIN Diagnoses ESRD on hemodialysis N18.6; Z99.2 Acute hyperkalemia E87.5 Volume overload E87.70 Anemia due to chronic kidney disease N18.9; D63.1 Hypertension I10
[2022-10-18] MEDS ORDERED: GLUCAGON FOR INJ 1 MG VIAL SQ PRN (13:25)
[2022-10-18] MEDS ORDERED: GLUCOSE 40% GEL 15 GM TUBE PO PRN (13:25)
[2022-10-18] MEDS ORDERED: DEXTROSE 50% 50 ML SYRINGE IV PRN (13:25)
[2022-10-18] MEDS ORDERED: GLUCOSE 10 TAB/TUBE PO PRN (13:25)
[2022-10-18] MEDS ORDERED: HEPARIN (PORCINE) 1000 UNIT/ML 10 ML (CATH LAB USE ONLY) IV PRN (13:28)
[2022-10-18] MEDS ORDERED: IRON SUCROSE IV PRN (13:28)
[2022-10-18] MEDS ORDERED: SODIUM CHLORIDE 0.9% IV PRN (13:28)
[2022-10-18] MEDS ORDERED: CYCLOBENZAPRINE HCL 5 MG TAB PO PRN (13:28)
[2022-10-18] MEDS ORDERED: GABAPENTIN 300 MG CAP PO PRN (13:28)
[2022-10-18] MEDS ORDERED: PIGGYBACK IV PRN (13:28)
[2022-10-18] MEDS: ACETAMINOPHEN 325 MG TAB PO PRN (15:21)
[2022-10-18] MEDS: carvediloL 25 MG TAB PO SCH (17:16)
[2022-10-18] MEDS: INSULIN ASPART PER UNIT CHARGE SC SCH ×2 (17:16→20:28)
[2022-10-18] MEDS: CALCIUM ACETATE 667 MG CAP/TAB PO SCH (17:16)
--- NOTE | 2022-10-18 17:43 | Electrocardiogram Report ---
Test Reason : Blood Pressure : / mmHG Vent. Rate : 064 BPM Atrial Rate : 064 BPM P-R Int : 194 ms QRS Dur : 114 ms QT Int : 444 ms P-R-T Axes : 038 118 200 degrees QTc Int : 458 ms Normal sinus rhythm Possible Left atrial enlargement Right axis deviation Poor R wave progression, consider anterior LA vs. lead placement vs. LVH Abnormal ECG When compared with ECG of 16-OCT-2022 21:42, No significant change was found Confirmed by Willie Godfrey ([id number]) on 10/18/2022 5:43:08 PM Referred By: REFERRED SELF Confirmed By:Yair Godfrey
[2022-10-18] MEDS: ISOSORBIDE MONO EXTENDED REL 30 MG TABCR PO SCH (20:56)
[2022-10-18] MEDS: LANTUS PER UNIT CHARGE SQ SCH (20:56)
[2022-10-18] MEDS: cloNIDine HCL 0.1 MG TAB PO SCH (20:57)
[2022-10-18] MEDS: ATORVASTATIN 20 MG TAB PO SCH (20:57)
[2022-10-18] MEDS: amLODIPine BESYLATE 5 MG TAB PO SCH (20:57)
[2022-10-19 07:16] LABS: Basophils % (auto) 1.7 %; Eosinophils # (auto) 0.29 K/uL (0-0.50); Eosinophils % (auto) 5.1 %; Hematocrit (blood only) 32.5 % (42.0-52.0); Hemoglobin 9.8 g/dl (14.0-18.0); Immature Granulocytes # (auto) 0.01 K/uL (0.01-0.20); Immature Granulocytes % (auto) 0.2 %; Lymphocytes # (auto) 0.97 K/uL (1.2-3.4); Lymphocytes % (auto) 16.9 %; Mean Corpuscular Hemoglobin 29.1 pg (25.0-34.0); Mean Corpuscular Hgb Conc 30.2 g/dL (32.0-36.0); Mean Corpuscular Volume 96.4 fL (80.0-100.0); Monocytes # (auto) 0.74 K/uL (0.11-0.59); Monocytes % (auto) 12.9 %; Neutrophils # (auto) 3.62 K/uL (1.40-6.50); Neutrophils % (auto) 63.2 %; Platelet Count 173 K/uL (130-400); RDW Coefficient of Variation 18.9 % (11.5-14.5); RDW Standard Deviation 67.1 fL (36.4-46.3); Red Blood Count 3.37 M/uL (4.70-6.10); White Blood Count 5.73 K/ul (4.8-10.8)
[2022-10-19 07:30] LABS: BUN Creatinine Ratio 6.8 (10-20); Calcium 9.1 mg/dl (8.6-10.3); Est GFR (Non-African American) 11.2 ml/min; Magnesium 2.3 mg/dl (1.7-2.4); Potassium 5.7 mmol/L (3.5-5.1)
[2022-10-19] MEDS: INSULIN ASPART PER UNIT CHARGE SC SCH ×4 (08:24→21:43)
[2022-10-19] MEDS: CALCIUM ACETATE 667 MG CAP/TAB PO SCH ×3 (08:26→16:59)
[2022-10-19] MEDS: carvediloL 25 MG TAB PO SCH ×2 (08:27→16:59)
[2022-10-19] MEDS: NEPHROCAPS PO SCH (08:28)
[2022-10-19] MEDS: ASPIRIN 81 MG ECTAB PO SCH (08:28)
[2022-10-19] MEDS: cloNIDine HCL 0.1 MG TAB PO SCH ×2 (08:29→21:52)
--- NOTE | 2022-10-19 17:15 | Hospitalist Progress Note ---
Date of Service October 19, 2022 Assessment & Plan (1) Volume overload: Plan: This is a 37 y/o male with ESRD on HD M/W/F, Type 1 DM with associated nephropathy, neuropathy, and retinopathy who presented to the ED today with progressive dyspnea and weakness thought secondary to volume overload. Pt missed an HD treatment earlier this month and his last treatment was only 2 hours due to showing up late. He is >11 kg about his EDW. Also noted to have hyperkalemia today on labs in the ED. - Admit for emergent HD today - ED provider spoke with on-call nephrology - Consult nephrology to follow while pt admitted - appreciate their assistance -Status post hemodialysis with improvement of his symptoms -Clinically much better without any acute distress and/or symptoms (2) Acute hyperkalemia: Plan: Initial potassium was 6.3 Has had urgent dialysis and the potassium improved to 5.7 Has had more dialysis this morning and expected to have improvement of her potassium and other kidney function (3) Hypoxia: Plan: Suspect due to volume overload - clinical picture does not appear consistent with infectious etiology at present - Wean O2 as tolerated -No shortness of breath at rest (4) ESRD on dialysis: Plan: As above (5) Poorly controlled type 1 diabetes mellitus: Plan: Continue basal insulin with sliding scale coverage Diabetic, dialysis diet Hemoglobin A1c is 8.3 in September of this year (6) Anemia due to chronic kidney disease: Plan: H&H appears stable around baseline of 10 Hemoglobin remains stable at 9.8 (7) Dyslipidemia: Plan: Continue statin (8) Hypertension: Plan: Blood pressure is controlled with current medications (9) Ischemic cardiomyopathy: Plan: No acute cardiac symptoms (10) CAD (coronary artery disease): Plan Code Status: Full code DVT Prophylaxis: SubQ heparin Admission and Anticipated Discharge Date Admission Date: October 18, 2022 Subjective 10/19/2022 The patient was seen and examined in telemetry unit He was admitted with progressive dyspnea and weakness and noted to have fluid overload Has been feeling much better following hemodialysis Review of Systems Review of Systems: All systems reviewed and are unremarkable except as noted below Physical Exam Physical Exam: Sitting at the edge of the bed and eating without any acute distress Constitutional: + ill appearing and average body habitus Eyes: PERRL, conjunctivae normal, anicteric sclerae ENMT: external ear and nose normal, oropharynx normal Neck: trachea midline, no thyromegaly Respiratory: no respiratory distress Auscultation: lungs clear to auscultation bilaterally Cardiovascular: Rate/Rhythm: regular rate and regular rhythm; not tachycardic Heart Sounds: normal S1, normal S2 and + murmur Extremities: + edema (1+ edema confined to the ankles) Gastrointestinal (Abdomen): Inspection/Auscultation: normal bowel sounds; abdomen not distended Percussion/Palpation: abdomen soft; abdomen nontender Musculoskeletal: No acute arthritis involving any joint Neurologic: normal touch/pain/proprioception and moves all extremities; no focal motor deficits Lymphatic: no cervical or axillary lymphadenopathy Results & Data Results & Data Vital Signs (Past 12 Hours) Vital Signs Temp Pulse Pulse Pulse Resp BP BP 10/19/22 16:10 69 10/19/22 15:24 36.3 C L 69 20 127/67 10/19/22 14:15 36.3 C L 67 156/83 H 10/19/22 13:30 67 141/79 H 10/19/22 13:00 66 143/77 H 10/19/22 12:30 67 111/75 10/19/22 12:00 65 104/55 L 10/19/22 11:30 76 97/77 L 10/19/22 11:00 66 127/67 10/19/22 10:30 67 130/60 10/19/22 10:00 66 102/59 L 10/19/22 09:42 66 136/76 10/19/22 09:33 36.5 C 66 10/19/22 09:26 67 10/19/22 09:26 10/19/22 08:24 65 122/75 10/19/22 07:00 36.3 C L 66 18 123/81 Pulse Ox O2 Del Method O2 Flow Rate 10/19/22 16:10 10/19/22 15:24 100 Nasal Cannula 2 10/19/22 14:15 10/19/22 13:30 10/19/22 13:00 10/19/22 12:30 10/19/22 12:00 10/19/22 11:30 10/19/22 11:00 10/19/22 10:30 10/19/22 10:00 10/19/22 09:42 10/19/22 09:33 10/19/22 09:26 10/19/22 09:26 Nasal Cannula 2 10/19/22 08:24 10/19/22 07:00 99 Nasal Cannula 2 Laboratory Results Short CBC 10/19/22 Range/Units 06:27 WBC 5.73 (4.8-10.8) K/ul Hgb 9.8 L (14.0-18.0) g/dl Hct 32.5 L (42.0-52.0) % Plt Count 173 (130-400) K/uL BMP 10/19/22 06:27 Sodium 135 L Potassium 5.7 H Chloride 96 L Carbon Dioxide 31 BUN 40 H D Creatinine 5.87 H* D Glucose 151 H Calcium 9.1 Medications Administered Current Inpatient Medications Acetaminophen (Acetaminophen 325 Mg Tab) 650 mg PO Q4H PRN PRN Reason: Pain (Scale Score 1-3) Stop: 11/17/22 13:27 Last Admin: 10/18/22 15:21 Dose: 650 mg Amlodipine Besylate (Amlodipine Besylate 5 Mg Tab) 10 mg PO QPM JANAK Stop: 11/17/22 20:59 Last Admin: 10/18/22 20:57 Dose: 10 mg Aspirin (Aspirin 81 Mg Ectab) 81 mg PO DAILY JANAK Stop: 11/18/22 08:59 Last Admin: 10/19/22 08:28 Dose: 81 mg Atorvastatin Calcium (Atorvastatin 20 Mg Tab) 20 mg PO HS JANAK Stop: 11/17/22 20:59 Last Admin: 10/18/22 20:57 Dose: 20 mg Calcium Acetate (Calcium Acetate 667 Mg Cap/Tab) 1,334 mg PO TIDM JANAK Stop: 11/17/22 16:59 Last Admin: 10/19/22 16:59 Dose: 1,334 mg Carvedilol (Carvedilol 25 Mg Tab) 25 mg PO BIDM JANAK Stop: 11/17/22 16:59 Last Admin: 10/19/22 16:59 Dose: 25 mg Clonidine HCl (Clonidine Hcl 0.1 Mg Tab) 0.2 mg PO BID JANAK Stop: 11/17/22 20:59 Last Admin: 10/19/22 08:29 Dose: 0.2 mg Cyclobenzaprine HCl (Cyclobenzaprine Hcl 5 Mg Tab) 5 mg PO HS PRN PRN Reason: MUSCLE SPASMS Stop: 11/17/22 13:27 Dextrose (Dextrose 50% 50 Ml Syringe) 25 - 50 ml IV UD PRN; Protocol PRN Reason: Hypoglycemia Protocol Stop: 11/17/22 13:24 Gabapentin (Gabapentin 300 Mg Cap) 300 mg PO TID PRN PRN Reason: PAIN PER PT. Stop: 11/17/22 13:27 Last Admin: 10/19/22 01:00 Dose: 300 mg Glucagon (Glucagon For Inj 1 Mg Vial) 1 mg SQ UD PRN; Protocol PRN Reason: Hypoglycemia Protocol Stop: 11/17/22 13:24 Glucose (Glucose 10 Tab/Tube) 4 - 8 tab PO UD PRN; Protocol PRN Reason: Hypoglycemia Treatment Stop: 11/17/22 13:24 Glucose (Glucose 40% Gel 15 Gm Tube) 15 - 30 gm PO UD PRN; Protocol PRN Reason: Hypoglycemia Protocol Stop: 11/17/22 13:24 Insulin Aspart (Insulin Aspart Per Unit Charge) 0 units SC ACHS JANAK Stop: 11/17/22 16:29 Last Admin: 10/19/22 17:03 Dose: 10 units Insulin Glargine (Lantus Per Unit Charge) 12 units SQ HS JANAK Stop: 11/17/22 20:59 Last Admin: 10/18/22 20:56 Dose: 12 units Isosorbide Mononitrate (Isosorbide [place] Extended Rel 30 Mg Tabcr) 30 mg PO QPM JANAK Stop: 11/17/22 20:59 Last Admin: 10/18/22 20:56 Dose: 30 mg Miscellaneous (Carbohydrates For Hypoglycemia ) 15 - 30 gm PO UD PRN PRN Reason: Hypoglycemia Protocol Stop: 11/17/22 13:24 Vitamin B Complex/Folic Acid (Nephrocaps) 1 cap PO DAILY JANAK Stop: 11/18/22 08:59 Last Admin: 10/19/22 08:28 Dose: 1 cap (1) Volume overload Hypervolemia type: other Qualified Code(s): E87.79 - Other fluid overload (10) CAD (coronary artery disease) Coronary Disease-Associated Artery/Lesion type: unspecified vessel or lesion type [place] vs. transplanted heart: [place] heart Associated angina: angina presence unspecified Qualified Code(s): I25.10 - Atherosclerotic heart disease of [place] coronary artery without angina pectoris
[2022-10-19] MEDS: CARBOHYDRATES FOR HYPOGLYCEMIA PO PRN (20:17)
[2022-10-19] MEDS: LANTUS PER UNIT CHARGE SQ SCH (21:43)
[2022-10-19] MEDS: ATORVASTATIN 20 MG TAB PO SCH (21:51)
[2022-10-19] MEDS: ISOSORBIDE MONO EXTENDED REL 30 MG TABCR PO SCH (21:52)
[2022-10-19] MEDS: amLODIPine BESYLATE 5 MG TAB PO SCH (21:52)
[2022-10-20] MEDS: ASPIRIN 81 MG ECTAB PO SCH (08:18)
[2022-10-20] MEDS: NEPHROCAPS PO SCH (08:19)
[2022-10-20] MEDS: CALCIUM ACETATE 667 MG CAP/TAB PO SCH ×2 (08:19→13:38)
[2022-10-20] MEDS: ACETAMINOPHEN 325 MG TAB PO PRN (08:27)
[2022-10-20] MEDS: INSULIN ASPART PER UNIT CHARGE SC SCH ×2 (08:28→14:26)
--- NOTE | 2022-10-20 10:17 | Nephrology Progress Note ---
Date of Service October 20, 2022 Assessment & Plan (1) ESRD on hemodialysis: (2) Acute hyperkalemia: (3) Volume overload: (4) Anemia due to chronic kidney disease: (5) Hypertension: Plan 37-year-old male with end-stage renal disease on hemodialysis admitted with generalized weakness, SOB, volume overload and acute hyperkalemia. Chest x-ray pulmonary vascular congestion. EKG and cardiac enzymes were unremarkable. CT abdomen pelvis done yesterday showed cholelithiasis without cholecystitis. --plan for dialysis today as his regular schedule, UF 4 L --advised to strictly follow low-potassium diet,, fluid restriction to <1.2 L/d --phosphate binder with meals --dose medications for GFR less than 10, rt arm nephrology precaution. --discussed about the importance of compliance with HD Will Follow Admission and Anticipated Discharge Date Admission Date: October 18, 2022 Scott Saldivar was seen and examined this morning while on dialysis, still has some abdominal discomfort. Dialysis yesterday, tolerating HD aim for 4.5 L to reach EDW. Blood pressure elevated, electrolyte acceptable. Review of Systems Review of Systems: Detail ROS was done and pertinent positives and negatives were mentioned in EMR. Physical Exam Constitutional: WD/WN, vitals as above no acute distress Eyes: + anicteric sclerae Respiratory: no cough Auscultation: + crackles (bilaterally) Cardiovascular: Rate/Rhythm: regular rate and regular rhythm Heart Sounds: normal S1 and normal S2 Extremities: + edema (trace b/l LE edema) Skin: no rashes Neurologic: no focal motor deficits Psychiatric: Orientation: alert and oriented x 3 Affect: euthymic affect Results & Data Vital Signs (Past 12 Hours) Vital Signs Temp Pulse Pulse Pulse Resp BP Pulse Ox 10/20/22 09:21 10/20/22 07:56 36.4 C L 68 20 137/94 99 10/20/22 05:28 36.7 C 73 19 128/73 98 10/19/22 23:00 68 10/19/22 23:08 36.7 C 69 20 107/46 L 100 O2 Del Method 10/20/22 09:21 Room Air 10/20/22 07:56 Room Air 10/20/22 05:28 Room Air 10/19/22 23:00 10/19/22 23:08 Nasal Cannula PG Care Time/CCT Total # of Minutes Spent Total Time Spent with Patient: Total time spent is greater than 50% in coordination of care (as documented) at patient's floor/unit and/or counseling patient: Coding Level of Care Code 13492 SUB INP/OBS CARE 3/50MIN Diagnoses ESRD on hemodialysis N18.6; Z99.2 Acute hyperkalemia E87.5 Volume overload E87.79 Hypervolemia type: other Anemia due to chronic kidney disease N18.9; D63.1 Hypertension I10 (3) Volume overload Hypervolemia type: other Qualified Code(s): E87.79 - Other fluid overload
[2022-10-20] MEDS: CARBOHYDRATES FOR HYPOGLYCEMIA PO PRN (13:29)
[2022-10-20] MEDS: carvediloL 25 MG TAB PO SCH (13:37)
[2022-10-20] MEDS: cloNIDine HCL 0.1 MG TAB PO SCH (13:38)
[2022-10-20 14:52] LABS: Basophils # (auto) 0.09 K/uL (0-0.2); Basophils % (auto) 2.2 %; Eosinophils # (auto) 0.29 K/uL (0-0.50); Hematocrit (blood only) 37.9 % (42.0-52.0); Hemoglobin 11.7 g/dl (14.0-18.0); Immature Granulocytes # (auto) 0.01 K/uL (0.01-0.20); Immature Granulocytes % (auto) 0.2 %; Lymphocytes # (auto) 0.59 K/uL (1.2-3.4); Lymphocytes % (auto) 14.2 %; Mean Corpuscular Hemoglobin 28.8 pg (25.0-34.0); Mean Corpuscular Hgb Conc 30.9 g/dL (32.0-36.0); Mean Corpuscular Volume 93.3 fL (80.0-100.0); Monocytes # (auto) 0.63 K/uL (0.11-0.59); Monocytes % (auto) 15.1 %; Neutrophils # (auto) 2.55 K/uL (1.40-6.50); Neutrophils % (auto) 61.3 %; Platelet Count 167 K/uL (130-400); RDW Standard Deviation 62.2 fL (36.4-46.3); Red Blood Count 4.06 M/uL (4.70-6.10); White Blood Count 4.16 K/ul (4.8-10.8)
[2022-10-20 15:13] LABS: BUN Creatinine Ratio 4.2 (10-20); Calcium 9.4 mg/dl (8.6-10.3); Creatinine Clr Calc Pharmacy 45.7 ml/min; Est GFR (African American) 43.7 ml/min; Est GFR (Non-African American) 37.7 ml/min; Magnesium 1.9 mg/dl (1.7-2.4); Potassium 4.1 mmol/L (3.5-5.1)
--- NOTE | 2022-10-20 15:40 | Hospitalist Progress Note ---
Date of Service October 20, 2022 Assessment & Plan (1) Volume overload: Plan: Patient is a 37 y/o male with ESRD on HD M/W/F, Type 1 DM with associated nephropathy, neuropathy, and retinopathy who presented to the ED today with progressive dyspnea and weakness thought secondary to volume overload. Pt missed an HD treatment earlier this month and his last treatment was only 2 hours due to showing up late. He is >11 kg about his EDW. Also noted to have hyperkalemia today on labs in the ED. Volume overload Secondary to noncompliance with hemodialysis End-stage renal disease Appreciate nephrology input Had dialysis during hospitalization Needs follow-up with nephrology upon discharge Consulted with be compliant with dialysis (2) Acute hyperkalemia: Plan: Initial potassium was 6.3 Has had urgent dialysis and the potassium improved to 5.7 Resolved with dialysis (3) Hypoxia: Plan: Suspect due to volume overload - clinical picture does not appear consistent with infectious etiology at present Weaned off of supplemental oxygen Saturating well on room air (4) ESRD on dialysis: Plan: As above (5) Poorly controlled type 1 diabetes mellitus: Plan: Continue basal insulin with sliding scale coverage Diabetic, dialysis diet Hemoglobin A1c is 8.3 in September of this year (6) Anemia due to chronic kidney disease: Plan: Hemoglobin stable (7) Dyslipidemia: Plan: Continue statin (8) Hypertension: Plan: Blood pressure is controlled with current medications (9) Ischemic cardiomyopathy: Plan: No acute cardiac symptoms (10) CAD (coronary artery disease): Plan Code Status: Full code DVT Prophylaxis: SQ heparin Admission and Anticipated Discharge Date Admission Date: October 18, 2022 Subjective Patient is seen and examined at bedside Had dialysis today Dyspnea resolved Saturating well on room air Offers no complaints Prefers to be discharged home today Discussed with nephrology today Review of Systems Review of Systems: All systems reviewed & are unremarkable except as noted in Subjective Physical Exam Physical Exam: Physical Exam: Vitals signs as noted above General Appearance: Thin, frail, no apparent distress Head: normocephalic, Atraumatic Eyes: normal inspection, EOMI Neck: supple, Trachea midline Respiratory/Chest: Normal breath sounds, CTA, No accessory muscle use Cardiovascular: S1, S2, No murmur Abdomen/GI:Soft, Non tender, Bowel sounds present Extremities/Musculoskeletal:normal inspection, Trace edema Neurologic/Psych:AAOX3, grossly no focal neurological deficits Skin: normal color, warm Results & Data Results & Data Vital Signs (Past 12 Hours) Vital Signs Temp Pulse Pulse Pulse Resp BP BP 10/20/22 15:10 36.5 C 67 18 131/83 10/20/22 14:55 67 10/20/22 13:09 36.5 C 69 149/71 H 10/20/22 13:00 68 147/73 H 10/20/22 12:30 68 156/85 H 10/20/22 12:00 68 147/90 H 10/20/22 13:32 36.4 C L 75 18 137/94 10/20/22 11:00 72 137/83 10/20/22 10:30 68 126/77 10/20/22 11:30 68 132/76 10/20/22 10:00 68 128/65 10/20/22 09:30 67 127/69 10/20/22 09:15 66 140/79 10/20/22 09:00 36.6 C 68 10/20/22 09:21 10/20/22 07:56 36.4 C L 68 20 137/94 10/20/22 05:28 36.7 C 73 19 128/73 Pulse Ox O2 Del Method 10/20/22 15:10 97 Room Air 10/20/22 14:55 10/20/22 13:09 10/20/22 13:00 10/20/22 12:30 10/20/22 12:00 10/20/22 13:32 95 Room Air 10/20/22 11:00 10/20/22 10:30 10/20/22 11:30 10/20/22 10:00 10/20/22 09:30 10/20/22 09:15 10/20/22 09:00 10/20/22 09:21 Room Air 10/20/22 07:56 99 Room Air 10/20/22 05:28 98 Room Air Laboratory Results Short CBC 10/20/22 Range/Units 14:31 WBC 4.16 L (4.8-10.8) K/ul Hgb 11.7 L (14.0-18.0) g/dl Hct 37.9 L (42.0-52.0) % Plt Count 167 (130-400) K/uL BMP 10/20/22 14:31 Sodium 133 L Potassium 4.1 D Chloride 93 L Carbon Dioxide 32 BUN 9 D Creatinine 2.15 H D Glucose 175 H Calcium 9.4 (1) Volume overload Hypervolemia type: other Qualified Code(s): E87.79 - Other fluid overload (10) CAD (coronary artery disease) Associated angina: angina presence unspecified Coronary Disease-Associated Artery/Lesion type: unspecified vessel or lesion type [place] vs. transplanted heart: [place] heart Qualified Code(s): I25.10 - Atherosclerotic heart disease of [place] coronary artery without angina pectoris
--- NOTE | 2022-10-20 19:58 | Discharge Summary ---
Date of Service October 20, 2022 Admission HPI Per Admitting Provider This is a 37 y/o male with ESRD on HD, Type 1 DM, diabetic nephropathy, diabetic neuropathy, diabetic retinopathy, hx CAD s/p CABG, dyslipidemia, PAD, HTN, HFrEF due to ischemic cardiomyopathy, and chronic anemia who presented to the ED today with worsening shortness of breath and weakness. Pt reports he showed up late on Tuesday for HD and that they were unable to complete a full treatment because of that (2 hrs total). He has a history of noncompliance with HD having also missed his treatment on 10/06. He reports he is being evaluated for possible PD but needs to have a cholecystectomy first, which has not been scheduled. He presented to the ED late Tuesday night with abdominal pain - ED evaluation was unremarkable so he was sent home. He returned to the ED today via EMS due to worsening weakness and shortness of breath. He reports increased weakness and abdominal distention since Tuesday. He tried taking a laxative thinking that he was constipated and that would help the abdominal distention. He moved his bowels but had no relief of symptoms. The shortness of breath has also slowly worsened. Denies associated chest pain, palpitations, congestion, sore throat, cough, N/V, fevers, chills. He notes intermittent BERRY. He reports his blood sugars have been high for him - recently 300s to 400. Outpatient PCP records and recent admission notes were reviewed. Admission Exam Per Admitting Provider Physical Exam Constitutional: well developed, well nourished and + ill appearing; no acute distress Eyes: + anicteric sclerae Neck: trachea midline Respiratory: no respiratory distress and no labored breathing Auscultation: + crackles (at bases bilaterally) Cardiovascular: Rate/Rhythm: regular rate and regular rhythm Vessels: radial pulses present Extremities: + edema (trace bilateral LE) Gastrointestinal (Abdomen): Inspection/Auscultation: + abdomen distended and normal bowel sounds Percussion/Palpation: abdomen soft; abdomen nontender Musculoskeletal: Head/Neck/Chest: normocephalic and head atraumatic Skin: no jaundice Neurologic: moves all extremities; no focal motor deficits and not confused Psychiatric: A+Ox3, euthymic affect Principal Diagnosis Volume overload End-stage renal disease on dialysis Hyperkalemia Discharge Data Allergies Allergy/AdvReac Type Severity Reaction Status Date / Time clopidogrel [From Plavix] Allergy Severe itching Verified 10/16/22 20:48 Consultations 10/18/22 07:54 ED Decision to Admit Stat 10/18/22 08:33 Consult Nephrology Routine Procedures Performed Laboratory Results WBC 4.16 K/ul (4.8-10.8) L 10/20/22 14:31 RBC 4.06 M/uL (4.70-6.10) L 10/20/22 14:31 Hgb 11.7 g/dl (14.0-18.0) L 10/20/22 14:31 Hct 37.9 % (42.0-52.0) L 10/20/22 14:31 MCV 93.3 fL (80.0-100.0) 10/20/22 14:31 MCH 28.8 pg (25.0-34.0) 10/20/22 14:31 MCHC 30.9 g/dL (32.0-36.0) L 10/20/22 14:31 RDW Std Deviation 62.2 fL (36.4-46.3) H 10/20/22 14:31 RDW Coeff of Hedy 18.0 % (11.5-14.5) H 10/20/22 14:31 Plt Count 167 K/uL (130-400) 10/20/22 14:31 MPV 10.0 fL (9.4-12.4) 10/20/22 14:31 Immature Gran % (Auto) 0.2 % 10/20/22 14:31 Neut % (Auto) 61.3 % 10/20/22 14:31 Lymph % (Auto) 14.2 % 10/20/22 14:31 Collin % (Auto) 15.1 % 10/20/22 14:31 Eos % (Auto) 7.0 % 10/20/22 14:31 Baso % (Auto) 2.2 % 10/20/22 14:31 Neut # (Auto) 2.55 K/uL (1.40-6.50) 10/20/22 14:31 Lymph # (Auto) 0.59 K/uL (1.2-3.4) L 10/20/22 14:31 Collin # (Auto) 0.63 K/uL (0.11-0.59) H 10/20/22 14:31 Eos # (Auto) 0.29 K/uL (0-0.50) 10/20/22 14:31 Baso # (Auto) 0.09 K/uL (0-0.2) 10/20/22 14:31 Immature Gran # (Auto) 0.01 K/uL (0.01-0.20) 10/20/22 14:31 PT 13.1 Seconds (9.0-12.0) H 10/18/22 05:56 INR 1.2 (0.9-1.1) H 10/18/22 05:56 APTT 27.1 Seconds (21.0-31.0) 10/18/22 05:56 PTT Ratio 1.0 10/18/22 05:56 Sodium 133 mmol/L (136-145) L 10/20/22 14:31 Potassium 4.1 mmol/L (3.5-5.1) D 10/20/22 14:31 Chloride 93 mmol/L (98-107) L 10/20/22 14:31 Carbon Dioxide 32 mmol/L (21-32) 10/20/22 14:31 Anion Gap 8 (3-11) 10/20/22 14:31 BUN 9 mg/dl (6-23) D 10/20/22 14:31 Creatinine 2.15 mg/dl (0.6-1.4) H D 10/20/22 14:31 Est Cr Clr Drug Dosing 45.7 ml/min 10/20/22 14:31 Est GFR ( Amer) 43.7 ml/min 10/20/22 14:31 Est GFR (Non-Af Amer) 37.7 ml/min 10/20/22 14:31 BUN/Creatinine Ratio 4.2 (10-20) L 10/20/22 14:31 Glucose 175 mg/dl (70-99(Fasting)) H 10/20/22 14:31 POC Glucose 104 mg/dl (70-99) H 10/20/22 13:44 Calcium 9.4 mg/dl (8.6-10.3) 10/20/22 14:31 Magnesium 1.9 mg/dl (1.7-2.4) 10/20/22 14:31 Total Bilirubin 0.6 mg/dl (0.2-1.0) 10/18/22 05:56 AST 9 U/L (13-39) L 10/18/22 05:56 ALT 12 U/L (7-52) 10/18/22 05:56 Alkaline Phosphatase 87 U/L (34-104) 10/18/22 05:56 Troponin I High Sens 56.1 pg/ml (0-20) H* 10/18/22 05:56 Total Protein 7.0 gm/dl (6.0-8.3) 10/18/22 05:56 Albumin 3.6 gm/dl (3.4-5.0) 10/18/22 05:56 Globulin 3.4 gm/dl (2.5-4.0) 10/18/22 05:56 Albumin/Globulin Ratio 1.1 (0.9-2) 10/18/22 05:56 TSH 1.940 uIu/ml (0.300-4.500) 10/18/22 05:56 SARS-CoV-2 (PCR) NEGATIVE (Negative) 10/18/22 06:40 Hep Bs Antigen Cancelled 10/18/22 05:56 Hep Bs Ag Confirmation Cancelled 10/18/22 05:56 Influenza Type A (PCR) Negative (Neg) 10/18/22 06:40 Influenza Type B (PCR) Negative (Neg) 10/18/22 06:40 RSV (RT-PCR) Negative (Neg) 10/18/22 06:40 Impressions Chest X-Ray 10/18/22 06:17 XR chest 1V portable CLINICAL HISTORY: Chest pain, nonspecific COMPARISON STUDY: Chest CT September 30, 2019. Chest radiograph September 25, 2022. FINDINGS: There is no pneumothorax. A trace left pleural effusion is unchanged. There are median sternotomy wires. Cardiomegaly is unchanged. Right pleural effusion has decreased in size since prior exam. Pulmonary edema has improved. There is no consolidation to suggest pneumonia. IMPRESSION: 1. Cardiomegaly with a trace left pleural effusion. 2. Interval resolution of pulmonary edema and a right pleural effusion. ACT 112: Negative or not required by law. Electronically signed by: Ronak Alejandro M.D. 10/18/2022 6:59 AM Hospital Course (1) Volume overload: Patient is a 37 y/o male with ESRD on HD M/W/F, Type 1 DM with associated nephropathy, neuropathy, and retinopathy who presented to the ED today with progressive dyspnea and weakness thought secondary to volume overload. Pt missed an HD treatment earlier this month and his last treatment was only 2 hours due to showing up late. He is >11 kg about his EDW. Also noted to have hyperkalemia today on labs in the ED. Volume overload Secondary to noncompliance with hemodialysis End-stage renal disease Appreciate nephrology input Had dialysis during hospitalization Needs follow-up with nephrology upon discharge Consulted with be compliant with dialysis (2) Acute hyperkalemia: Initial potassium was 6.3 Has had urgent dialysis and the potassium improved to 5.7 Resolved with dialysis (3) Hypoxia: Suspect due to volume overload - clinical picture does not appear consistent with infectious etiology at present Weaned off of supplemental oxygen Saturating well on room air (4) ESRD on dialysis: As above (5) Poorly controlled type 1 diabetes mellitus: Continue basal insulin with sliding scale coverage Diabetic, dialysis diet Hemoglobin A1c is 8.3 in September of this year (6) Anemia due to chronic kidney disease: Hemoglobin stable (7) Dyslipidemia: Continue statin (8) Hypertension: Blood pressure is controlled with current medications (9) Ischemic cardiomyopathy: No acute cardiac symptoms (10) CAD (coronary artery disease): Plan Code Status: Full code DVT Prophylaxis: SQ heparin Total Time Total Time Spent Total Time Spent (In Minutes): 56 minutes Discharge Plan Discharge Items Patient Disposition: Home - Self-Care Reason For Visit: HYPOXIA, FLUID OVERLOAD Discharge Diagnosis: Volume overload End-stage renal disease on dialysis Hyperkalemia Activity: Per Instructions section Exercise/Sports: Wait until after follow-up appointment Non-emergency contact: Primary Care Provider and Deputy [employer] Call non-emergency contact if: you have any medication questions, your symptoms worsen, your pain is concerning for you and you have a fever Follow-up/Referrals: Mckinley Douglas MD [Primary Care Provider] - (Date & Time 10/26/2022 11:00 AM Provider Mckinley Douglas MD [facility] ) Diet: Carb Count or DM1 and Dialysis Renal Addtl Attending Provider Instructions: Follow-up with your primary care physician Dr. Douglas on 10/26/2022 11:00 AM Follow-up with your roll icer machine for dialysis as advised Seek immediate medical attention if your symptoms reoccur or worsen Please take all medications as instructed on discharge list below. Please call if you have any questions or problems. You can reach a [facility] hospitalist on duty at [facility] 24 hours a day by calling Pending Studies at Discharge: No Stand-Alone Forms: [facility], Smoking Cessation Medications and DC Order Prescriptions: Continued amlodipine 10 mg tablet 10 mg PO QPM Qty: 90 1RF Rx Instructions: TAKE 1 TABLET BY MOUTH EVERY DAY Humulin R Regular U-100 Insuln 100 unit/mL solution 1 sliding scale dose SUBCUT TIDM Qty: 3 3RF Rx Instructions: BSG 70-130=0 UNITS, BSG 131-180=2 UNITS, BSG 181-240=4 UNITS, BSG 241-300=6 UNITS, BSG 301-350=8 UNITS, BSG 351-400=10 UNITS, BSG >400=12 UNITS; CALL MD. insulin glargine [Lantus U-100 Insulin] 100 unit/mL solution 12 unit SUBCUT HS Qty: 10 0RF carvedilol 25 mg Tablet 25 mg PO BIDM acetaminophen [Tylenol] 325 mg Tablet 650 mg PO Q4H PRN (Reason: Pain (Scale Score 1-3)) atorvastatin 20 mg Tablet 20 mg PO HS heparin (porcine) 1,000 unit/mL Solution 1,000 unit IV DIRECTED PRN (Reason: DIALYSIS) isosorbide mononitrate 30 mg Tablet Extended Release 24 Hr 30 mg PO QPM Venofer 100 mg iron/5 mL Solution 100 mg IV WK PRN (Reason: DIALYSIS) Rx Instructions: EVERY TUESDAY PRN DIALYSIS sodium chloride 0.9 % Piggyback 1,000 ml IV DIRECTED PRN (Reason: DIALYSIS) calcium acetate(phosphat bind) 667 mg capsule 1,334 mg PO TIDM aspirin [Adult Aspirin Regimen] 81 mg tablet,delayed release (DR/EC) 81 mg PO DAILY Qty: 30 11RF gabapentin 300 mg capsule 300 mg PO TID PRN (Reason: PAIN PER PT.) Rx Instructions: PER PT "USING ONLY WHEN NEEDED". cyclobenzaprine 5 mg tablet 5 mg PO HS PRN (Reason: MUSCLE SPASMS) Triphrocaps 1 mg capsule 1 cap PO DAILY Rx Instructions: TAKE 1 CAPSULE BY MOUTH BY MOUTH DAILY clonidine HCl 0.2 mg Tablet 0.2 mg PO BID benzonatate 100 mg Capsule 100 mg PO TID PRN (Reason: Cough) Discharge Orders: Discharge Order (Routine); Ordered 10/20/22 Ordered By: Herbert Ford Admission Data Admit Date/Time: 10/18/22 08:33 Attending Provider: Herbert Ford Admit Provider: Sanjay Smith Primary Care Provider: Mckinley Douglas Other Providers: Solo García ; Shannan Vo ; Sanjay Smith Other Interventions: Discharge Summary Assessment (RN) Last Done: 10/20/22 15:55
[2022-10-22 10:57] LABS: HBSAG NON-REACTIVE (NON-REACTIVE)
== END 2022-10-20 16:10 | disposition home or self-care (01) | DRG 640 ==
LOC: ED 05:47 → SUATTDRO 08:33 → 2S 08:33